=== PATIENT | female | born 1935 | race Caucasian/White ===

== ENCOUNTER 2017-09-06 11:49 | Inpatient (IN) | payer OTHER ==
[2017-09-06] MEDS ORDERED: SODIUM CHLORIDE 0.9% 1000 ML INFUS.BAG IV PRN (12:25)
[2017-09-06] MEDS ORDERED: LABETALOL HCL 5 MG/1 ML (100MG/20 ML VIAL) IVPUSH ONE ×3 (12:43→16:55)
--- NOTE | 2017-09-06 12:49 | PDOC ---
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 The patient states she woke up from sleep at 2AM feeling SOB, walked to the bathroom, but went back to sleep. As per the patients son, he returned from a workout this morning and found his mother to be lying on the couch with the phone knocked over like she was trying to make a call but couldn't and appeared to be having difficulty breathing. The son states she is disoriented today, and reports his mother was in good health yesterday seeing her patients in the office. The patient states her SOB and wheezing this morning prompted her prescribe herself and take Lasix, which her son reportedly picked up from the pharmacy for her on his way home from the gym. She states she feels like she could vomit, however, denies any emesis today. She reports a diffuse headache. She reports informing Dr. Quiñones of her symptoms this morning and was on the way to his office when she decided to come to the ED instead. She denies cough, chest pain, and dizziness. She denies fever, chills, nausea, vomit, diarrhea and constipation. She denies dysuria, frequency, urgency and hematuria. Allergies: NKDA Social history: distant history of tobacco use Cardiology: Dr. Quiñones <Cecilia Brush - Last Filed: 09/06/17 13:53> <Hank Blair - Last Filed: 09/06/17 14:52> - General Chief Complaint: Shortness of Breath Stated Complaint: ALTERED MENTAL STATUS (PCP SENT) Time Seen by Provider: 09/06/17 12:06 NIH Stroke Scale - Last Known Well Date/Time & Onset Date Last Known Well: 09/05/17 Time Last Known Well: 23:45 - Initial Evaluation Level of consciousness: Alert Ask patient the month and their age: Answers one correctly Ask patient to open & close eyes; make fist and let go: Obeys both correctly Best gaze (horizontal eye movement): Normal Visual field testing: No visual field loss Facial paresis (Show teeth/raise eyebrows/close eyes tight): Normal symmetrical movement Motor Function: Left Arm: Normal Motor Function: Right Arm: Normal (extends arm 90 (or 45) degrees for 10 seconds without drift Motor Function: Left Leg: Normal (extends leg 30 degrees for 5 seconds without drift) Motor Function: Right Leg: Normal (extends leg 30 degrees for 5 seconds without drift) Limb Ataxia: No ataxia Sensory(Use pinprick test arms,legs,trunk,face/side to side): Normal Best language (Describe picture, name items, read sentences): No Aphasia Dysarthria (read several words): Normal articulation Extinction and Inattention: No abnormality - Total Score NIH Stroke Scale Score: 1 <Hank Blair - Last Filed: 09/06/17 14:52> tPA Exclusion checklist 3-4.5h - Ineligibility reason(s) Reasons No tPA given: Outside of window - delayed arrival <Hank Blair - Last Filed: 09/06/17 14:52> Past History <Cecilia Brush - Last Filed: 09/06/17 13:53> - Past Medical History Anemia: Yes Asthma: No Cancer: No Cardiac Disorders: No CVA: No COPD: No CHF: No DVT: No Dementia: No Diabetes: No GI Disorders: Yes Disorders: Yes (KIDNEY STONES) HTN: Yes Hypercholesterolemia: Yes Liver Disease: No Seizures: No Thyroid Disease: No - Surgical History Abdominal Surgery: Yes Appendectomy: Yes Cardiac Surgery: No Cholecystectomy: No Lung Surgery: No Neurologic Surgery: No Orthopedic Surgery: No - Immunization History Immunization Up to Date: Yes - Suicide/Smoking/Psychosocial Hx Smoking History: Never smoked Have you smoked in the past 12 months: No If you are a former smoker, when did you quit?: 40yrs Information on smoking cessation initiated: No Hx Alcohol Use: No Drug/Substance Use Hx: No Substance Use Type: None <Hank Blair - Last Filed: 09/06/17 14:52> - Past Medical History Allergies/Adverse Reactions: Allergies Allergy/AdvReac Type Severity Reaction Status Date / Time No Known Allergies Allergy Verified 09/06/17 11:57 Home Medications: Ambulatory Orders Amlodipine Bes/Olmesartan Med [Moose 5-40 mg Tablet] 1 each PO DAILY 09/29/13 Furosemide 20 mg PO DAILY 09/06/17 Review of Systems - Review of Systems Constitutional: No: Chills, Fever HEENTM: No: Recent change in vision Respiratory: Yes: Shortness of Breath Cardiac (ROS): No: Chest Pain ABD/GI: Yes: Nausea. No: Vomiting : No: Dysuria, Frequency Neurological: Yes: Headache, Weakness All Other Systems: Reviewed and Negative <JohnnieHank - Last Filed: 09/06/17 14:52> *Physical Exam - Vital Signs Last Vital Signs Temp Pulse Resp BP Pulse Ox 97.9 F 84 15 190/83 93 L 09/06/17 11:57 09/06/17 11:57 09/06/17 11:57 09/06/17 11:57 09/06/17 11:57 - Physical Exam Comments: 09/06/17 13:03 GENERAL: The patient is awake, alert, and fully oriented, in no acute distress. HEAD: Normal with no signs of trauma. EYES: Pupils equal, round and reactive to light, extraocular movements intact, sclera anicteric, conjunctiva clear with no pallor. ENT: Ears normal, nares patent, oropharynx clear without exudates. Moist mucous membranes. NECK: Normal range of motion, supple without lymphadenopathy, JVD, or masses. LUNGS: (+)Decreased breath sounds and crackles to the mid lung wilhelm bilaterally. Breath sounds equal, HEART:(+) Regular rhythm with intermittent premature beats. Regular rate. normal S1 and S2 without murmur or rub. ABDOMEN: Soft/nontender/nondistended. BS wnl. No guarding or rebound. No palpable masses. No hepatosplenomegaly. EXTREMITIES: (+) Trace edema to the bilateral peritibial region. Normal range of motion No clubbing or cyanosis. No cords, erythema, or tenderness. NEUROLOGICAL: Cranial nerves II through XII grossly intact. Normal speech, normal gait. PSYCH: Normal mood, normal affect. SKIN: Warm, Dry, normal turgor, no rashes or lesions noted. <Cecilia Brush - Last Filed: 09/06/17 13:53> - Vital Signs Last Vital Signs Temp Pulse Resp BP Pulse Ox 97.9 F 84 15 190/83 93 L 09/06/17 11:57 09/06/17 11:57 09/06/17 11:57 09/06/17 11:57 09/06/17 11:57 <Hank Blair - Last Filed: 09/06/17 14:52> Heart Score/ECG Review #1 ECG reviewed & interpreted by me at: 12:31 General ECG Interpretation: Sinus Rhythm (PVCs noted), Normal Rate, Normal Intervals (qtc 457), No acute ischemic changes <Hank Blair - Last Filed: 09/06/17 14:52> ED Treatment Course - LABORATORY CBC & Chemistry Diagram: 09/06/17 12:29 09/06/17 12:29 <Cecilia Brush - Last Filed: 09/06/17 13:53> - LABORATORY CBC & Chemistry Diagram: 09/06/17 12:29 09/06/17 12:29 - RADIOLOGY Radiology Studies Ordered: Category Date Time Status HEAD CT (STROKE) [CT] Stat CT Scan 09/06/17 12:40 Ordered CHEST X-RAY PORTABLE* [RAD] Stat Radiology 09/06/17 12:25 Ordered <Hank Blair - Last Filed: 09/06/17 14:52> Medical Decision Making - Medical Decision Making 09/06/17 13:57 [facility] service was microblogged regarding this patient's admission and ICU spray technician, Dr. Washington, was paged requesting a call back for admission of this patient to ICU. <Cecilia Brush - Last Filed: 09/06/17 13:53> - Critical Care Time Total Critical Care Time (minutes): 120 Critical Care Statement: The care of this patient involved high complexity decision making to prevent further life threatening deterioration of the patient 's condition and/or to evaluate & treat vital organ system(s) failure or risk of failure. - Medical Decision Making 09/06/17 12:45 A portion of this note was documented by scribe services under my direction. I have reviewed the details of the note, within reason, and agree with the documentation with the following case summary and management plan written by me. 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 She requested to be brought to Dr. Quiñones's office but then diverted to the emergency department. Patient is now endorsing some headache, some back pain, continued shortness of breath, but no focal weakness. Denies any progressive shortness of breath over the last few days, denies any cough or fevers or chills or infectious complaints. Afebrile. Elevated blood pressure with systolic of 190 on arrival, 220 upon my examination Patient is lying in stretcher with eyes closed, alert to voice, following all commands, answering questions appropriately Pupils are equal and reactive Neck is supple Moving all extremities equally Regular rhythm with no ectopy, bilateral crackles and decreased lung sounds to the mid lung wilhelm Trace pretibial edema 82-year-old female with history of hypertension presents with acute shortness of breath and altered mental status, markedly elevated blood pressures. Most concerning for hypertensive emergency, rule out intracranial hemorrhage. Appears to be in pulmonary edema, rule out dissection given her back pain. No acute ischemic changes on her EKG. Question infectious process, seems more likely cardiovascular. Seen immediately upon arrival, placed on monitor and EKG performed Blood pressure control, CT head Sepsis and stroke protocol was initiated Close monitoring, currently protecting airway 09/06/17 13:39 no acute hemorrhage on CT but evidence of acute infarct in L frontoparietal region. + LLL infiltrate with calcified/uncoiled aorta but no widening of mediastinum. wbc 28, mental status steady, recognized Dr. Quiñones and maintaining airway. BP still elevated, will redose labetalol. Will need ICU admission for pna sepsis, hypertensive emergency with infarct (no clear motor deficit, unclear LKW, would not be tpa candidate 2/2 multiple contraindications of bp, unknown lkw, etc). Requests hospitalist admission, Dr. Quiñones at bedside. 09/06/17 14:35 Accepted for ICU by Dr. Washington. Accepted for admission by Dr. Bunch <Hank Blair - Last Filed: 09/06/17 14:52> *DC/Admit/Observation/Transfer - Attestations Scribe Attestion: 09/06/17 13:04 Documentation prepared by Cecilia Brush, acting as medical examiner for Hank Blair MD, <Cecilia Brush - Last Filed: 09/06/17 13:53> - Discharge Dispostion Admit: Yes <Hank Blair - Last Filed: 09/06/17 14:52> Diagnosis at time of Disposition: Hypertensive emergency Altered mental status Qualifiers: Altered mental status type: transient alteration of awareness Qualified Code(s) : R40.4 - Transient alteration of awareness CVA (cerebral vascular accident) Qualifiers: CVA mechanism: unspecified Qualified Code(s): I63.9 - Cerebral infarction, unspecified Pneumonia Qualifiers: Pneumonia type: due to unspecified organism Laterality: left Lung location: lower lobe of lung Qualified Code(s): J18.1 - Lobar pneumonia, unspecified organism - Discharge Dispostion Condition at time of disposition: Guarded
[2017-09-06 13:03] LABS: HEMATOCRIT 46.4 % (32.4-45.2); HEMOGLOBIN 15.1 GM/dL (10.7-15.3); MCH 29.4 pg (25.7-33.7); MCHC 32.5 g/dl (32.0-36.0); MEAN CELL VOLUME 90.6 fl (80-96); PLATELET COUNT 270 K/MM3 (134-434); RBC 5.12 M/mm3 (3.60-5.2); RDW 12.7 % (11.6-15.6)
[2017-09-06 13:12] LABS: VENOUS PC02 55.5 mmHg (38-52); VENOUS PH 7.35 (7.32-7.42); VENOUS PO2 17.8 mmHg (28-48)
[2017-09-06] MEDS: SODIUM CHLORIDE 1,000 ML IV SCH ×2 (13:14→23:05)
[2017-09-06] MEDS ORDERED: LABETALOL HCL 5 MG/1 ML (200MG/40ML VIAL) IVPB ONE (13:15)
[2017-09-06 13:18] LABS: INR 1.02 (0.82-1.09); PROTHROMBIN TIME (PATIENT) 11.5 SEC (9.98-11.88)
[2017-09-06 13:20] LABS: ACTIVATED PTT 31.6 SECONDS (26.9-34.4)
[2017-09-06] MEDS ORDERED: CEFTRIAXONE 1 GM in DEXTROSE 5%-WATER - 50 ML IVPB ONE (13:27)
[2017-09-06] MEDS ORDERED: VANCOMYCIN 1,000 MG in DEXTROSE 5%-WATER - 250 ML IVPB ONE (13:27)
[2017-09-06 13:32] LABS: ALBUMIN 3.3 g/dl (3.4-5.0); ANION GAP 6 (8-16); BLOOD UREA NITROGEN 17 mg/dL (7-18); CALCIUM 8.4 mg/dL (8.5-10.1); CHLORIDE 105 mmol/L (98-107); CO2 26 mmol/L (21-32); CREATININE 0.8 mg/dL (0.55-1.02); GLUCOSE,RANDOM 170 mg/dL (74-106); SGPT/ALT 30 U/L (12-78); SODIUM 137 mmol/L (136-145); TOT PROT 7.2 g/dl (6.4-8.2)
[2017-09-06 13:35] LABS: ALK PHOS 102 U/L (45-117)
[2017-09-06] MEDS ORDERED: ONDANSETRON 4 MG/2 ML VIAL IVPUSH ONE (13:35)
[2017-09-06] MEDS ORDERED: ACETAMINOPHEN 1000 MG/100 ML VIAL (NON FORMULARY) IVPB ONE (13:35)
[2017-09-06] MEDS ORDERED: VANCOMYCIN 1 GRAM (PRE-DOCKED) 1,000 MG/250 ML BAG IVPB ONE (13:38)
[2017-09-06] MEDS ORDERED: ONDANSETRON 4 MG/2 ML VIAL ONE (13:38)
[2017-09-06] MEDS ORDERED: CEFTRIAXONE 1 GM/50 ML BAG ONE (13:38)
[2017-09-06] MEDS ORDERED: ACETAMINOPHEN INJECTION 100 ML IVPB ONE (13:38)
[2017-09-06 13:45] LABS: PLATELET ESTIMATE ADEQUATE
[2017-09-06 13:47] LABS: POTASSIUM 5.9 mmol/L (3.5-5.1); SGOT/AST 56 U/L (15-37)
[2017-09-06] MEDS ORDERED: HEPARIN NA (PORCINE) 5,000 UNITS/ML 1ML VIAL SQ SCH (14:30)
--- NOTE | 2017-09-06 14:48 | PN ---
Teaching Attending Note ATTENDING PHYSICIAN STATEMENT I saw and evaluated the patient. I reviewed the resident's note and discussed the case with the resident. I agree with the resident's findings and plan as documented. SUBJECTIVE: Pt seen and examined. 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 Denies fevers or chills. No sick contacts or recent travel. Confused per her son at bedside. She does report a frontal headache but without nausea, vomiting. No vision changes. Found to have a LLL infiltrate on CXR and possible right frontal/parietal infarct on CT head. OBJECTIVE: Last Vital Signs Temp Pulse Resp BP Pulse Ox 98.6 F 81 16 162/76 95 09/06/17 13:48 09/06/17 14:30 09/06/17 14:30 09/06/17 14:30 09/06/17 14:30 Intake & Output 09/03/17 09/04/17 09/05/17 09/06/17 23:59 23:59 23:59 23:59 Weight 137 lb Gen: confused but able to orient HEENT: dry mucous membranes Heart: RRR Lung: decreased breath sounds at the bases Abd: soft, nontender Ext: no edema CBC, BMP 09/06/17 12:29 09/06/17 12:29 Troponin, BNP 09/06/17 12:29 Troponin I < 0.02 Active Medications Calcium Gluconate (Calcium Gluconate 10% -) 1,000 mg IVPB ONCE ONE Stop: 09/06/17 14:34 Chlorhexidine Gluconate (Hibiclens For Decolonization -) 1 applic TP HS SHAHRAM Heparin Sodium (Porcine) (Heparin -) 5,000 unit SQ Q8H-IV SHAHRAM Last Admin: 09/06/17 14:43 Dose: 5,000 unit Sodium Chloride (Normal Saline -) 1,000 mls @ 42 mls/hr IV ASDIR SHAHRAM Last Admin: 09/06/17 13:14 Dose: 42 mls/hr Azithromycin 500 mg/ Dextrose 250 mls @ 250 mls/hr IVPB DAILY ONE Stop: 09/06/17 15:32 Mupirocin (Bactroban Ointment (For Decolonization) -) 1 applic NS BID SHAHRAM Stop: 09/11/17 21:59 Sodium Chloride (Normal Saline -) 620 ml IV Q20M PRN PRN Reason: MAP<65mm Hg OR SBP <90 Sodium Polystyrene Sulfonate (Kayexalate -) 15 gm PO ONCE ONE Stop: 09/06/17 14:35 ASSESSMENT AND PLAN: Altered Mental Status Pneumonia Acute/Subacute CVA HTN Hyperlipidemia - antibiotics to cover community acquired pneumonia - f/u cultures - urine antigens - flu swab - IVF - monitor fever curve, WBC trend - would allow permissive HTN <220/120 - MRI when more clinically stable - PO as tolerated - DVT prophylaxis - can monitor in ICU Thank you for this consult Osvaldo Washington MD
[2017-09-06] MEDS ORDERED: AZITHROMYCIN IVPB 250 ML IVPB ONE (14:51)
[2017-09-06 15:13] LABS: URINE APPEARANCE CLEAR; URINE BILIRUBIN NEGATIVE (NEGATIVE); URINE BLOOD NEGATIVE (NEGATIVE); URINE COLOR LTYELLOW; URINE GLUCOSE (UA) NEGATIVE (NEGATIVE); URINE KETONE TRACE (NEGATIVE); URINE LEUK ESTERASE TRACE (NEGATIVE); URINE NITRITE POSITIVE (NEGATIVE); URINE UROBILINOGEN NEGATIVE mg/dL (0.2-1.0)
[2017-09-06 15:14] LABS: URINE PROTEIN 2+ (NEGATIVE)
[2017-09-06] MEDS ORDERED: CALCIUM GLUCONATE 10% - 1,000 MG/10 ML VIAL IVPB ONE (15:15)
[2017-09-06 15:17] LABS: URINE BACTERIA RARE /hpf (NONE SEEN); URINE MUCUS RARE
[2017-09-06] MEDS ORDERED: DEXTROSE 50%-WATER - 25 GM/50 ML VIAL IVPUSH ONE (15:25)
[2017-09-06] MEDS ORDERED: INSULIN REGULAR HUMAN 100 UNITS/ML *VIAL IVPUSH ONE (15:26)
[2017-09-06] MEDS ORDERED: SODIUM POLYSTYRENE SULFONATE 15 GM/60 ML BOTTLE PO ONE (15:30)
[2017-09-06] MEDS: AZITHROMYCIN IVPB 500 MG in DEXTROSE 5%-WATER - 250 ML IVPB SCH (16:08)
[2017-09-06] MEDS ORDERED: DEXTROSE 50%-WATER 25 GM/50 ML DISP.SYRIN ONE (16:16)
[2017-09-06] MEDS ORDERED: INSULIN REGULAR HUMAN 100 UNITS/ML *VIAL ONE (16:17)
--- NOTE | 2017-09-06 16:42 | HP ---
<Daniel Thapa - Last Filed: 09/06/17 17:29> CHIEF COMPLAINT: Shortness of breath HISTORY OF PRESENT ILLNESS: Patient is an 82 year old female with a past medical history of hypertension and hyperlipidemia presented to the ED today for a 1 day hx of shortness of breath and altered mental status. 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 She is accompanied by her son, who is visiting her from out of the area. Her son states that last night, the patient was feeling short of breath and not like herself at all. He states that she prescribed herself Lasix (unknown dose) and the son went to go pick it up for her. When he returned, he states that she was more short of breath and lethargic. The patient herself states that she felt better after taking the Lasix. Patient states that she called Dr. Cruz, who advised her to come to the emergency room. Currently patient states that she feels better and is not having any shortness of breath. She has never been intubated emergently before ( she has been intubated in the past for surgery). She denies chest pain, nausea, vomiting, diarrhea, fevers, chills, abdominal pain, headache, blurry vision, changes to her vision. ER course was notable for: (1) Hypertensive emergency (/) (2) Ischemic infarct on CT head no contrast (3) Leukocytosis at 28 (4) Hyperkalemia 5.9 Recent Travel: unknown PAST MEDICAL HISTORY: Hypertension, Hyperlipidemia, nephrolithiasis, septicemic shock, leiomyoma PAST SURGICAL HISTORY: hysterectomy for leiomyoma Social History: Smoking: former smoker, 4 packs a day, quit 48 years ago Alcohol: former drinker, unknown quantity (occasional social drinker now) Drugs: none Family History: unknown Allergies No Known Allergies Allergy (Verified 09/06/17 11:57) HOME MEDICATIONS: Home Medications Medication Instructions Recorded Amlodipine Bes/Olmesartan Med 1 each PO DAILY 09/29/13 [Moose 5-40 mg Tablet] Furosemide 20 mg PO DAILY 09/06/17 REVIEW OF SYSTEMS CONSTITUTIONAL: generalized weakness, malaise, Absent: fever, chills, diaphoresis, loss of appetite, weight change HEENT: Absent: rhinorrhea, nasal congestion, throat pain, throat swelling, difficulty swallowing, mouth swelling, ear pain, eye pain, visual changes CARDIOVASCULAR: lightheadedness Absent: chest pain, syncope, palpitations, irregular heart rate, peripheral edema RESPIRATORY: Absent: cough, shortness of breath, dyspnea with exertion, orthopnea, wheezing, stridor, hemoptysis GASTROINTESTINAL: Absent: abdominal pain, abdominal distension, nausea, vomiting, diarrhea, constipation, melena, hematochezia GENITOURINARY: Absent: dysuria, frequency, urgency, hesitancy, hematuria, flank pain, genital pain MUSCULOSKELETAL: Absent: myalgia, arthralgia, joint swelling, back pain, neck pain SKIN: Absent: rash, itching, pallor HEMATOLOGIC/IMMUNOLOGIC: Absent: easy bleeding, easy bruising, lymphadenopathy, frequent infections ENDOCRINE: Absent: unexplained weight gain, unexplained weight loss, heat intolerance, cold intolerance NEUROLOGIC: Absent: headache, focal weakness or paresthesias, dizziness, unsteady gait, seizure, mental status changes, bladder or bowel incontinence PSYCHIATRIC: Absent: anxiety, depression, suicidal or homicidal ideation, hallucinations. PHYSICAL EXAMINATION Vital Signs - 24 hr 09/06/17 09/06/17 09/06/17 11:57 13:13 13:48 Temperature 97.9 F 98.6 F Pulse Rate 84 Pulse Rate [ 84 84 Left Apical] Respiratory 15 16 16 Rate Blood Pressure 190/83 Blood Pressure 225/83 144/54 [Left Arm] O2 Sat by Pulse 93 L 100 94 L Oximetry (%) 09/06/17 09/06/17 14:30 16:09 Temperature 97.6 F Pulse Rate Pulse Rate [ 81 77 Left Apical] Respiratory 16 16 Rate Blood Pressure Blood Pressure 162/76 184/79 [Left Arm] O2 Sat by Pulse 95 99 Oximetry (%) GENERAL: Awake, alert, and oriented x3, in no acute distress. Patient is slighty altered but is A&O. HEAD: Normal with no signs of trauma. EYES: Pupils equal, round and reactive to light, extraocular movements intact, sclera anicteric, conjunctiva clear. No lid lag. EARS, NOSE, THROAT: Ears normal, nares patent, oropharynx clear without exudates. Moist mucous membranes. NECK: Normal range of motion, supple without lymphadenopathy, JVD, or masses. LUNGS: Breath sounds equal, Bilateral crackles heard on auscultation, patient is slightly tachypneic, No accessory muscle use. HEART: Regular rate and rhythm, normal S1 and S2 without murmur, rub or gallop. ABDOMEN: Soft, nontender, not distended, normoactive bowel sounds, no guarding, no rebound, no masses. No hepatomegaly or splenomegaly. MUSCULOSKELETAL: Normal range of motion at all joints. No bony deformities or tenderness. No CVA tenderness. UPPER EXTREMITIES: 2+ pulses, warm, well-perfused. No cyanosis. No clubbing. No peripheral edema. LOWER EXTREMITIES: 2+ pulses, warm, well-perfused. No calf tenderness. No peripheral edema. NEUROLOGICAL: Cranial nerves II-XII intact. Sensation decreased on dorsum of L arm and L hand. eyes are poorly tracking Laboratory Results - last 24 hr 09/06/17 09/06/17 09/06/17 12:29 12:29 12:29 WBC 28.0 H D RBC 5.12 Hgb 15.1 Hct 46.4 H MCV 90.6 MCH 29.4 MCHC 32.5 RDW 12.7 Plt Count 270 MPV 8.0 Total Counted 100 Neutrophils % No Result Required. Neutrophils % (Manual) 85.0 H Lymphocytes % No Result Required. Lymphocytes % (Manual) 4.0 L Monocytes % (Manual) 11 H Platelet Estimate Adequate PT with INR 11.50 INR 1.02 PTT (Actin FS) 31.6 VBG pH 7.35 POC VBG pCO2 55.5 H POC VBG pO2 17.8 L* Mixed VBG HCO3 29.6 H Sodium Potassium Chloride Carbon Dioxide Anion Gap BUN Creatinine Creat Clearance w eGFR Random Glucose Lactic Acid Calcium Total Bilirubin AST ALT Alkaline Phosphatase Creatine Kinase Troponin I Total Protein Albumin Urine Color Urine Appearance Urine pH Ur Specific [place] Urine Protein Urine Glucose (UA) Urine Ketones Urine Blood Urine Nitrite Urine Bilirubin Urine Urobilinogen Urine WBC (Auto) Urine RBC (Auto) Urine Bacteria Urine Mucus Blood Type Antibody Screen 09/06/17 09/06/17 09/06/17 12:29 12:29 13:00 WBC RBC Hgb Hct MCV MCH MCHC RDW Plt Count MPV Total Counted Neutrophils % Neutrophils % (Manual) Lymphocytes % Lymphocytes % (Manual) Monocytes % (Manual) Platelet Estimate PT with INR INR PTT (Actin FS) VBG pH POC VBG pCO2 POC VBG pO2 Mixed VBG HCO3 Sodium 137 Potassium 5.9 H D Chloride 105 Carbon Dioxide 26 Anion Gap 6 L BUN 17 Creatinine 0.8 Creat Clearance w eGFR > 60 Random Glucose 170 H D Lactic Acid 1.9 Calcium 8.4 L Total Bilirubin 1.0 D AST 56 H D ALT 30 D Alkaline Phosphatase 102 Creatine Kinase 114 Troponin I < 0.02 Total Protein 7.2 Albumin 3.3 L Urine Color Urine Appearance Urine pH Ur Specific [place] Urine Protein Urine Glucose (UA) Urine Ketones Urine Blood Urine Nitrite Urine Bilirubin Urine Urobilinogen Urine WBC (Auto) Urine RBC (Auto) Urine Bacteria Urine Mucus Blood Type O POSITIVE Antibody Screen Negative 09/06/17 15:00 WBC RBC Hgb Hct MCV MCH MCHC RDW Plt Count MPV Total Counted Neutrophils % Neutrophils % (Manual) Lymphocytes % Lymphocytes % (Manual) Monocytes % (Manual) Platelet Estimate PT with INR INR PTT (Actin FS) VBG pH POC VBG pCO2 POC VBG pO2 Mixed VBG HCO3 Sodium Potassium Chloride Carbon Dioxide Anion Gap BUN Creatinine Creat Clearance w eGFR Random Glucose Lactic Acid Calcium Total Bilirubin AST ALT Alkaline Phosphatase Creatine Kinase Troponin I Total Protein Albumin Urine Color Ltyellow Urine Appearance Clear Urine pH 6.0 Ur Specific [place] 1.012 Urine Protein 2+ H Urine Glucose (UA) Negative Urine Ketones Trace H Urine Blood Negative Urine Nitrite Positive Urine Bilirubin Negative Urine Urobilinogen Negative Urine WBC (Auto) 4 Urine RBC (Auto) <1 Urine Bacteria Rare Urine Mucus Rare Blood Type Antibody Screen ASSESSMENT/PLAN: 82 year old female with a past medical history of hypertension and hyperlipidemia admitted to the ICU for sepsis 2/2 pneumonia, hypertensive emergency, and ischemic stroke. #Sepsis likely 2/2 Pneumonia: -repeat ABG -vanco given in ED -ceftriaxone/azithromycin coverage QD -Fluid resuscitation -lasix 40mg IV QD #Ischemic Stroke: -appreciate neuro recommendations Dr. Sotelo -f/u MRI brain -f/u carotid doppler -Aspirin 325 loading dose and 81mg QD starting tomorrow -atorvastatin 40mg -Speech/swallow consult, NPO till after #Hypertensive Emergency: BP was 225/83 -Patient was given labetalol in ED and pressure decreased to 144/54 -continue labetalol 10mg Q3 PRN if BP > 200/120 -f/u echocardiogram #Hyperkalemia: potassium was 5.9 on admission -EKG did not show any concerning abnormalities -calcium gluconate -kayexalate -insulin -repeat BMP 9pm #FEN: -no standing fluids -hyperkalemic, repeat BMP 9pm -NPO until after speech/swallow #Prophylaxis -Heparin 5000 Subq TID #Disposition -Admit to ICU for monitoring, full code until status is reassessed Visit type - Emergency Visit Emergency Visit: Yes ED Registration Date: 09/06/17 Care time: The patient presented to the Emergency Department on the above date and was hospitalized for further evaluation of their emergent condition. - New Patient This patient is new to me today: Yes Date on this admission: 09/06/17 - Critical Care Critical Care patient: Yes Total Critical Care Time (in minutes): 30 Critical Care Statement: The care of this patient involved high complexity decision making to prevent further life threatening deterioration of the patient 's condition and/or to evaluate & treat vital organ system(s) failure or risk of failure. <Asa Bunch - Last Filed: 09/06/17 18:37> CHIEF COMPLAINT: PCP: HISTORY OF PRESENT ILLNESS: ER course was notable for: (1) (2) (3) Recent Travel: PAST MEDICAL HISTORY: PAST SURGICAL HISTORY: Social History: Smoking: Alcohol: Drugs: Family History: Allergies No Known Allergies Allergy (Verified 09/06/17 11:57) HOME MEDICATIONS: Home Medications Medication Instructions Recorded Amlodipine Bes/Olmesartan Med 1 each PO DAILY 09/29/13 [Moose 5-40 mg Tablet] Furosemide 20 mg PO DAILY 09/06/17 REVIEW OF SYSTEMS CONSTITUTIONAL: Absent: fever, chills, diaphoresis, generalized weakness, malaise, loss of appetite, weight change HEENT: Absent: rhinorrhea, nasal congestion, throat pain, throat swelling, difficulty swallowing, mouth swelling, ear pain, eye pain, visual changes CARDIOVASCULAR: Absent: chest pain, syncope, palpitations, irregular heart rate, lightheadedness , peripheral edema RESPIRATORY: Absent: cough, shortness of breath, dyspnea with exertion, orthopnea, wheezing, stridor, hemoptysis GASTROINTESTINAL: Absent: abdominal pain, abdominal distension, nausea, vomiting, diarrhea, constipation, melena, hematochezia GENITOURINARY: Absent: dysuria, frequency, urgency, hesitancy, hematuria, flank pain, genital pain MUSCULOSKELETAL: Absent: myalgia, arthralgia, joint swelling, back pain, neck pain SKIN: Absent: rash, itching, pallor HEMATOLOGIC/IMMUNOLOGIC: Absent: easy bleeding, easy bruising, lymphadenopathy, frequent infections ENDOCRINE: Absent: unexplained weight gain, unexplained weight loss, heat intolerance, cold intolerance NEUROLOGIC: Absent: headache, focal weakness or paresthesias, dizziness, unsteady gait, seizure, mental status changes, bladder or bowel incontinence PSYCHIATRIC: Absent: anxiety, depression, suicidal or homicidal ideation, hallucinations. PHYSICAL EXAMINATION Vital Signs - 24 hr 09/06/17 09/06/17 09/06/17 11:57 13:13 13:48 Temperature 97.9 F 98.6 F Pulse Rate 84 Pulse Rate [ 84 84 Left Apical] Respiratory 15 16 16 Rate Blood Pressure 190/83 Blood Pressure 225/83 144/54 [Left Arm] O2 Sat by Pulse 93 L 100 94 L Oximetry (%) 09/06/17 09/06/17 09/06/17 14:30 16:09 17:15 Temperature 97.6 F 97.8 F Pulse Rate Pulse Rate [ 81 77 72 Left Apical] Respiratory 16 16 16 Rate Blood Pressure Blood Pressure 162/76 184/79 167/78 [Left Arm] O2 Sat by Pulse 95 99 96 Oximetry (%) 09/06/17 18:22 Temperature 98.0 F Pulse Rate Pulse Rate [ 75 Left Apical] Respiratory 16 Rate Blood Pressure Blood Pressure 130/61 [Left Arm] O2 Sat by Pulse 98 Oximetry (%) GENERAL: Awake, alert, and fully oriented, in no acute distress. HEAD: Normal with no signs of trauma. EYES: Pupils equal, round and reactive to light, extraocular movements intact, sclera anicteric, conjunctiva clear. No lid lag. EARS, NOSE, THROAT: Ears normal, nares patent, oropharynx clear without exudates. Moist mucous membranes. NECK: Normal range of motion, supple without lymphadenopathy, JVD, or masses. LUNGS: Breath sounds equal, clear to auscultation bilaterally. No wheezes, and no crackles. No accessory muscle use. HEART: Regular rate and rhythm, normal S1 and S2 without murmur, rub or gallop. ABDOMEN: Soft, nontender, not distended, normoactive bowel sounds, no guarding, no rebound, no masses. No hepatomegaly or splenomegaly. MUSCULOSKELETAL: Normal range of motion at all joints. No bony deformities or tenderness. No CVA tenderness. UPPER EXTREMITIES: 2+ pulses, warm, well-perfused. No cyanosis. No clubbing. No peripheral edema. LOWER EXTREMITIES: 2+ pulses, warm, well-perfused. No calf tenderness. No peripheral edema. NEUROLOGICAL: Cranial nerves II-XII intact. Normal speech. Normal gait. PSYCHIATRIC: Cooperative. Good eye contact. Appropriate mood and affect. SKIN: Warm, dry, normal turgor, no rashes or lesions noted, normal capillary refill. Laboratory Results - last 24 hr 09/06/17 09/06/17 09/06/17 12:29 12:29 12:29 WBC 28.0 H D RBC 5.12 Hgb 15.1 Hct 46.4 H MCV 90.6 MCH 29.4 MCHC 32.5 RDW 12.7 Plt Count 270 MPV 8.0 Total Counted 100 Neutrophils % No Result Required. Neutrophils % (Manual) 85.0 H Lymphocytes % No Result Required. Lymphocytes % (Manual) 4.0 L Monocytes % (Manual) 11 H Platelet Estimate Adequate PT with INR 11.50 INR 1.02 PTT (Actin FS) 31.6 VBG pH 7.35 POC VBG pCO2 55.5 H POC VBG pO2 17.8 L* Mixed VBG HCO3 29.6 H Sodium Potassium Chloride Carbon Dioxide Anion Gap BUN Creatinine Creat Clearance w eGFR Random Glucose Lactic Acid Calcium Magnesium Total Bilirubin AST ALT Alkaline Phosphatase Creatine Kinase Troponin I B-Natriuretic Peptide Total Protein Albumin TSH Urine Color Urine Appearance Urine pH Ur Specific [place] Urine Protein Urine Glucose (UA) Urine Ketones Urine Blood Urine Nitrite Urine Bilirubin Urine Urobilinogen Urine WBC (Auto) Urine RBC (Auto) Urine Bacteria Urine Mucus Blood Type Antibody Screen Spec Expiration Date 09/06/17 09/06/17 09/06/17 12:29 12:29 13:00 WBC RBC Hgb Hct MCV MCH MCHC RDW Plt Count MPV Total Counted Neutrophils % Neutrophils % (Manual) Lymphocytes % Lymphocytes % (Manual) Monocytes % (Manual) Platelet Estimate PT with INR INR PTT (Actin FS) VBG pH POC VBG pCO2 POC VBG pO2 Mixed VBG HCO3 Sodium 137 Potassium 5.9 H D Chloride 105 Carbon Dioxide 26 Anion Gap 6 L BUN 17 Creatinine 0.8 Creat Clearance w eGFR > 60 Random Glucose 170 H D Lactic Acid 1.9 Calcium 8.4 L Magnesium Total Bilirubin 1.0 D AST 56 H D ALT 30 D Alkaline Phosphatase 102 Creatine Kinase 114 Troponin I < 0.02 B-Natriuretic Peptide Total Protein 7.2 Albumin 3.3 L TSH Urine Color Urine Appearance Urine pH Ur Specific [place] Urine Protein Urine Glucose (UA) Urine Ketones Urine Blood Urine Nitrite Urine Bilirubin Urine Urobilinogen Urine WBC (Auto) Urine RBC (Auto) Urine Bacteria Urine Mucus Blood Type O POSITIVE Antibody Screen Negative Spec Expiration Date 09/06/17 09/06/17 09/06/17 15:00 16:30 16:40 WBC RBC Hgb Hct MCV MCH MCHC RDW Plt Count MPV Total Counted Neutrophils % Neutrophils % (Manual) Lymphocytes % Lymphocytes % (Manual) Monocytes % (Manual) Platelet Estimate PT with INR INR PTT (Actin FS) VBG pH POC VBG pCO2 POC VBG pO2 Mixed VBG HCO3 Sodium Potassium Chloride Carbon Dioxide Anion Gap BUN Creatinine Creat Clearance w eGFR Random Glucose Lactic Acid Calcium Magnesium 2.0 Total Bilirubin AST ALT Alkaline Phosphatase Creatine Kinase Troponin I B-Natriuretic Peptide Total Protein Albumin TSH 1.01 Urine Color Ltyellow Urine Appearance Clear Urine pH 6.0 Ur Specific [place] 1.012 Urine Protein 2+ H Urine Glucose (UA) Negative Urine Ketones Trace H Urine Blood Negative Urine Nitrite Positive Urine Bilirubin Negative Urine Urobilinogen Negative Urine WBC (Auto) 4 Urine RBC (Auto) <1 Urine Bacteria Rare Urine Mucus Rare Blood Type O POSITIVE Antibody Screen Cancelled Spec Expiration Date Cancelled 09/06/17 16:52 WBC RBC Hgb Hct MCV MCH MCHC RDW Plt Count MPV Total Counted Neutrophils % Neutrophils % (Manual) Lymphocytes % Lymphocytes % (Manual) Monocytes % (Manual) Platelet Estimate PT with INR INR PTT (Actin FS) VBG pH POC VBG pCO2 POC VBG pO2 Mixed VBG HCO3 Sodium Potassium Chloride Carbon Dioxide Anion Gap BUN Creatinine Creat Clearance w eGFR Random Glucose Lactic Acid Calcium Magnesium Total Bilirubin AST ALT Alkaline Phosphatase Creatine Kinase Troponin I B-Natriuretic Peptide 3034.93 H Total Protein Albumin TSH Urine Color Urine Appearance Urine pH Ur Specific [place] Urine Protein Urine Glucose (UA) Urine Ketones Urine Blood Urine Nitrite Urine Bilirubin Urine Urobilinogen Urine WBC (Auto) Urine RBC (Auto) Urine Bacteria Urine Mucus Blood Type Antibody Screen Spec Expiration Date ASSESSMENT/PLAN:
--- NOTE | 2017-09-06 16:51 | CON.NEURO ---
Consult - History of Present Illness History of Present Illness: 2 Year old female history of Hypertension and 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 She has not been feeling well and had shortness of breadth . Patient blood pressure was very high and she was found to ahve ischemic lesion on right side . She has no headhace, no dsphagia , no dysarthria or diplopia or weakness. Patient is very tired . She has been having difficulty breathing. h - Alcohol/Substance Use Hx Alcohol Use: No - Smoking History Smoking history: Never smoked Have you smoked in the past 12 months: No If you are a former smoker, when did you quit?: 40yrs Home Medications - Allergies Allergies/Adverse Reactions: Allergies Allergy/AdvReac Type Severity Reaction Status Date / Time No Known Allergies Allergy Verified 09/06/17 11:57 - Home Medications Home Medications: Ambulatory Orders Amlodipine Bes/Olmesartan Med [Moose 5-40 mg Tablet] 1 each PO DAILY 09/29/13 Furosemide 20 mg PO DAILY 09/06/17 Physical Exam-Neuro Vital Signs: Vital Signs Temperature 97.6 F 09/06/17 16:09 Pulse Rate 77 09/06/17 16:09 Respiratory Rate 16 09/06/17 16:09 Blood Pressure 184/79 09/06/17 16:09 O2 Sat by Pulse Oximetry (%) 99 09/06/17 16:09 Labs: CBC, BMP 09/06/17 12:29 09/06/17 12:29 INR, PTT INR 1.02 (0.82-1.09) 09/06/17 12:29 Imaging - Results Cat Scan: Image Reviewed Assessment/Plan cc found to have right fronto parietal lobe infarct on ct head and high blood pressure HPI 82 Year old female history of Hypertension and 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 She has not been feeling well and had shortness of breadth . Patient blood pressure was very high and she was found to ahve ischemic lesion on right side . She has no headhace, no dsphagia , no dysarthria or diplopia or weakness. Patient is very tired . She has been having difficulty breathing. h Allergies: NKDA Social history: distant history of tobacco use MH,SH,ROS, Reviewe d in chart Neurological Examination Alert follow command, she is very tired and keep closing her eyes. and not very cooperative BP is 225/83, no neck stiffness no facial asymmetry, eomi and pupils is reactive moving all extremity not able to visual field by confrontation as she was uncooperative and exam is inconsistent she told resident that left hand she had numbness but on my exam there was normal sensation CT head showed right sided ischemic lesion at [place] frontal function Assessment- asymptomatic ischemic lesion , as she came with chf and very high blood pressure. Clinically her nih score is 1 or 0 Plan suggest to do mri of brain and carotid ultrasound for stroke work up - first 24 hour , bp should not be treated if above 220/120 or there is end organ failure - due to chf her bp need to lower, consider lowering by 15-20% of MAP - Antiplatelet and Statin Neuro check would continue to follow , please call us if any concern Thanks for consult Jonathon Sotelo MD
[2017-09-06] MEDS ORDERED: FUROSEMIDE 40 MG/4 ML INJECTABLE VIAL IVPUSH SCH ×2 (16:57→21:41)
[2017-09-06] MEDS ORDERED: LABETALOL HCL 5 MG/1 ML (100MG/20 ML VIAL) IVPUSH PRN ×2 (17:01→21:41)
--- NOTE | 2017-09-06 17:06 | PN ---
Teaching Attending Note Name of Resident: Daniel Thapa ATTENDING PHYSICIAN STATEMENT I saw and evaluated the patient. I reviewed the resident's note and discussed the case with the resident. I agree with the resident's findings and plan as documented. 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 Self prescribed lasix and took a dose with improvement in her symptoms. 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 Quiñones who advised her to come to the ED. Patient currently reports shortness of breath and feeling tired but denies any chest pain, palpitations, dizziness, new cough, fevers, chills, recent antibiotics or travel, orthopnea, PND, leg swelling, weight gain, recent URI like illness. 12 point ROS done, reports chronic back pain "straight down from below the skull to the bottom". with no recent change. Also c/o frontal headache, which is improved currently. OBJECTIVE: Vital Signs Period Temp Pulse Resp BP Sys/Espinoza Pulse Ox Last 24 Hr 97.6 F-98.6 F 77-84 15-16 144-225/54-83 93-100 Intake & Output 09/03/17 09/04/17 09/05/17 09/06/17 23:59 23:59 23:59 23:59 Weight 137 lb GENERAL: Awake, alert, mild tachypneia, with some use of acessory muscles for breathing HEAD: Normal with no signs of trauma. EYES: Pupils equal, round and reactive to light, extraocular movements intact, sclera anicteric, conjunctiva clear. No lid lag. EARS, NOSE, THROAT: Ears normal, nares patent, oropharynx clear without exudates. Moist mucous membranes. NECK: Normal range of motion, supple without lymphadenopathy, jugular venous distension noted LUNGS: decreased effort, scattered basilar rales, decreased breath sounds left base. HEART: Regular rate and rhythm, normal S1 and S2 ABDOMEN: Soft, nontender, not distended, normoactive bowel sounds, no guarding, no rebound, no masses. No hepatomegaly or splenomegaly. MUSCULOSKELETAL: No spinal tenderness. No CVA tenderness. UPPER EXTREMITIES: 2+ pulses, warm, well-perfused. No cyanosis. No clubbing. No peripheral edema. LOWER EXTREMITIES: 2+ pulses, warm, well-perfused. No calf tenderness. No peripheral edema. NEUROLOGICAL: AAOX3, tired looking,keeps closing her eyes, not very co- operative, PERRLA, EOMI, facial symmetry, no pronator drift, moves all extremities, not co-operative with visual field exam, senstion intact face/ Upper and lower extremities (reported decreased LUE sensation to prior MD) PSYCHIATRIC: tired looking, less co-operative. SKIN: Warm, dry, normal turgor, no rashes or lesions noted, normal capillary refill. Home Medication List Medication Instructions Recorded Confirmed Type Amlodipine Bes/Olmesartan Med 1 each PO DAILY 09/29/13 09/06/17 History [Moose 5-40 mg Tablet] Furosemide 20 mg PO DAILY 09/06/17 09/06/17 History Active Medications Generic Name Dose Route Start Last Admin Trade Name Freq PRN Reason Stop Dose Admin Albuterol Sulfate 1 amp 09/06/17 18:00 Ventolin 0.083% Nebulizer Soln - NEB QIDR SHAHRAM Aspirin 325 mg 09/06/17 17:10 Asa - PO 09/06/17 17:11 ONCE ONE Aspirin 81 mg 09/07/17 10:00 Asa - PO DAILY SHAHRAM Atorvastatin Calcium 40 mg 09/06/17 22:00 Lipitor - PO HS SHAHRAM Chlorhexidine Gluconate 1 applic 09/06/17 22:00 Hibiclens For Decolonization - TP HS SHAHRAM Furosemide 40 mg 09/06/17 16:57 Lasix Injection - IVPUSH DAILY [facility] Heparin Sodium (Porcine) 5,000 unit 09/06/17 15:08 Heparin - SQ TID SHAHRAM Sodium Chloride 1,000 mls @ 42 mls/hr 09/06/17 12:45 09/06/17 13:14 Normal Saline - IV 42 mls/hr ASDIR SHAHRAM Administration Azithromycin 500 mg/ Dextrose 250 mls @ 250 mls/hr 09/06/17 14:33 09/06/17 16 :08 IVPB 250 mls/hr DAILY SHAHRAM Administration Labetalol HCl 10 mg 09/06/17 17:01 Normodyne Injection - IVPUSH Q3H PRN HEADACHE Mupirocin 1 applic 09/06/17 22:00 Bactroban Ointment (For Decolonization) - NS 09/11/17 21:59 BID SHAHRAM Sodium Chloride 620 ml 09/06/17 12:25 Normal Saline - IV Q20M PRN MAP<65mm Hg OR SBP <90 Laboratory Tests 09/06/17 09/06/17 09/06/17 12:29 12:29 12:29 WBC 28.0 H D RBC 5.12 Hgb 15.1 Hct 46.4 H MCV 90.6 MCH 29.4 MCHC 32.5 RDW 12.7 Plt Count 270 MPV 8.0 Total Counted 100 Neutrophils % No Result Required. Neutrophils % (Manual) 85.0 H Lymphocytes % No Result Required. Lymphocytes % (Manual) 4.0 L Monocytes % (Manual) 11 H Platelet Estimate Adequate PT with INR 11.50 INR 1.02 PTT (Actin FS) 31.6 VBG pH 7.35 POC VBG pCO2 55.5 H POC VBG pO2 17.8 L* Mixed VBG HCO3 29.6 H Sodium Potassium Chloride Carbon Dioxide Anion Gap BUN Creatinine Creat Clearance w eGFR Random Glucose Lactic Acid Calcium Total Bilirubin AST ALT Alkaline Phosphatase Creatine Kinase Troponin I Total Protein Albumin Urine Color Urine Appearance Urine pH Ur Specific [place] Urine Protein Urine Glucose (UA) Urine Ketones Urine Blood Urine Nitrite Urine Bilirubin Urine Urobilinogen Urine WBC (Auto) Urine RBC (Auto) Urine Bacteria Urine Mucus Blood Type Antibody Screen 09/06/17 09/06/17 09/06/17 12:29 12:29 13:00 WBC RBC Hgb Hct MCV MCH MCHC RDW Plt Count MPV Total Counted Neutrophils % Neutrophils % (Manual) Lymphocytes % Lymphocytes % (Manual) Monocytes % (Manual) Platelet Estimate PT with INR INR PTT (Actin FS) VBG pH POC VBG pCO2 POC VBG pO2 Mixed VBG HCO3 Sodium 137 Potassium 5.9 H D Chloride 105 Carbon Dioxide 26 Anion Gap 6 L BUN 17 Creatinine 0.8 Creat Clearance w eGFR > 60 Random Glucose 170 H D Lactic Acid 1.9 Calcium 8.4 L Total Bilirubin 1.0 D AST 56 H D ALT 30 D Alkaline Phosphatase 102 Creatine Kinase 114 Troponin I < 0.02 Total Protein 7.2 Albumin 3.3 L Urine Color Urine Appearance Urine pH Ur Specific [place] Urine Protein Urine Glucose (UA) Urine Ketones Urine Blood Urine Nitrite Urine Bilirubin Urine Urobilinogen Urine WBC (Auto) Urine RBC (Auto) Urine Bacteria Urine Mucus Blood Type O POSITIVE Antibody Screen Negative 09/06/17 15:00 WBC RBC Hgb Hct MCV MCH MCHC RDW Plt Count MPV Total Counted Neutrophils % Neutrophils % (Manual) Lymphocytes % Lymphocytes % (Manual) Monocytes % (Manual) Platelet Estimate PT with INR INR PTT (Actin FS) VBG pH POC VBG pCO2 POC VBG pO2 Mixed VBG HCO3 Sodium Potassium Chloride Carbon Dioxide Anion Gap BUN Creatinine Creat Clearance w eGFR Random Glucose Lactic Acid Calcium Total Bilirubin AST ALT Alkaline Phosphatase Creatine Kinase Troponin I Total Protein Albumin Urine Color Ltyellow Urine Appearance Clear Urine pH 6.0 Ur Specific [place] 1.012 Urine Protein 2+ H Urine Glucose (UA) Negative Urine Ketones Trace H Urine Blood Negative Urine Nitrite Positive Urine Bilirubin Negative Urine Urobilinogen Negative Urine WBC (Auto) 4 Urine RBC (Auto) <1 Urine Bacteria Rare Urine Mucus Rare Blood Type Antibody Screen CXR - Pulmonary venous congestion, LLL infiltrate with small left pleural effusion CT brain - microvascular changes, right fronto-parietal junction acute/subacute infarct EKG - NSR, poor baseline, frequent PVCs ASSESSMENT AND PLAN: 82 yof with PMHx of HTN, HLD, admitted with shortness of breath, likely LLL CAP with sepsis, with component of acute diastolic heart failure, hypertensive urgency and Possible right acute/subacute frontoparietal CVA. -LLL CAP with sepsis -Acute diastolic heart failure, suspect from uncontolled BP which would again from acute CVA -Acute vs subacute right frontoparietal CVA -Hyperkalemia, ?etiology, ARB related -Hypertensive urgency -Hyperlipidemia -Prior heavy smoker Plan: -Ceftriaxone/azithromycin, s/p vanco in ED, Blood cultures, sputum cultures, influenza swab, nebs prn Heavy smoking history, will consider steroids if persistent tachypneic and/or wheezing noted. Repeat ABG. Based on exam and CXR, looks with component of CHF. Check BNP, lasix 40 mg IV daily, monitor output and renal function on diuresis. Strict I/Os. 2D echo noted. Aggressive hyperkalemia treatment Ca gluconate, D50 with insulin, kayexalate and nebs. Repeat chem-7 in 4 hours. Permissive HTN upto 220/120 for CVA Will aim for 15-20% drop given concerns for diastolic CHF as discussed with neurology. labetalol prn as indicated. Neuro checks. MRI brain when more stable and carotid dopplers. Bedside speech/swallow eval and PO accordingly. DVTPPx patient being transferred to ICU given respiratory distress, hypertensive urgency, concern for acute CVA and need for close neurological and respiratory status monitoring. Total critical care time spent 65 min.
[2017-09-06] MEDS ORDERED: ASPIRIN 325 MG TABLET PO ONE (17:10)
--- NOTE | 2017-09-06 17:35 | PN ---
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 (short form) - Note 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: ID Consult dictated Bibasilar infiltrates Sepsis secondary to lung source S/P altered mental status Marked leukocytosis Hypertensive crisis/ acute v. subacute CVA Await cultures Empiric ceftriaxone/ zithromax
[2017-09-06] MEDS ORDERED: diazePAM 2 MG TABLET PO ONE (17:42)
[2017-09-06] MEDS ORDERED: diazePAM 2 MG TABLET ONE (17:43)
[2017-09-06] MEDS: ALBUTEROL SO4 0.083% IH SOL 2.5 MG/3 ML VIAL.NEB. NEB SCH ×2 (18:02→23:55)
[2017-09-06] MEDS ORDERED: ALBUTEROL SO4 0.083% IH SOL 2.5 MG/3 ML VIAL.NEB. NEB ONE (18:04)
[2017-09-06] MEDS ORDERED: ASPIRIN 325 MG TABLET ONE (18:05)
[2017-09-06] MEDS ORDERED: FUROSEMIDE 40 MG/4 ML INJECTABLE VIAL IVPUSH ONE (18:27)
--- NOTE | 2017-09-06 20:56 | CONS ---
DATE OF CONSULTATION: REQUESTING PHYSICIAN: Hank Blair LOCATION: Emergency room. CHIEF COMPLAINT: 1. Shortness of breath. 2. History of mental confusion. 3. Generalized weakness. 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 According to the ER note, she also had wheezing, headaches, and generalized weakness. The patient was found to be lethargic, though arousable, extremely nauseous and restless. The patient earlier had called my office and stated that she wanted to come to see me, and I had advised her that she should not drive and have someone bring her over. Her son found her confused and dyspneic and decided to bring her to the emergency room. She denies having chills, fever, night sweats. There is no history of cough or expectoration. Denies having chest pain or discomfort either at rest or with exertion. She has a longstanding history of hypertension and hypercholesterolemia. She denies having a sore throat or a recent upper respiratory tract infection. In the emergency room, she was found to have accelerated hypertension with a blood pressure of 190/93 mmHg. PAST HISTORY: As mentioned in the history of present illness. SURGICAL HISTORY: Not available. 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 Unable to get a history of smoking or ethanol use. FAMILY HISTORY: Not available. CURRENT MEDICATIONS: 1. Azithromycin 250 mg IV daily. 2. Ceftriaxone 1 g IV daily. 3. Mupirocin 1 application b.i.d. 4. Heparin 5000 units subcutaneous t.i.d. 5. Albuterol via nebulizer. 6. Labetalol 10 mg IV push q.3 hours p.r.n. 7. Normal saline. 8. Atorvastatin 40 mg p.o. daily. 9. Furosemide 40 mg IV push. 10. Aspirin 81 mg p.o. daily. Earlier the patient had received Zofran and acetaminophen. Prior to admission, the patient had been on: 1. Moose 5/40 mg p.o. daily. 2. Furosemide 20 mg p.o. daily. REVIEW OF SYSTEMS: Constitutional: No history of chills, fever, or night sweats were reported. No history of unintentional weight loss is available. HEENT: History of headaches. No history of diplopia, blurred vision. No history of epistaxis, hoarseness, tinnitus, or deafness is reported. Cardiovascular: See history of present illness. Respiratory: See history of present illness. As mentioned in the ER physician's note, history of wheezing. No history of cough, expectoration, or hemoptysis. Gastrointestinal: History of severe nausea. No history of vomiting, melena, or hemoptysis. No history of abdominal pain or discomfort. No change of bowel habits. Central Nervous System: History of confusion. weakness. No history of seizures or syncope. No history of focal weakness. Genitourinary: No history of dysuria, frequency, or hematuria. Endocrine: No history of polyuria or polydipsia. No history of intolerance to cold or warm weather. Hematological/Lymphatics: No history of anemia, ecchymosis, or bleeding. No history of lymphadenopathy. PHYSICAL EXAMINATION: General: An 82-year-old ill-looking female who is restless when aroused but seems to be lethargic. There is no pallor, cyanosis, clubbing, or jaundice. Vital Signs: On admission, blood pressure 190/83 mmHg, a blood pressure of 200 mmHg was reported by the ER physician. Heart rate 84 beats per minute and is regular. Respirations are 15 per minute. Weight is 137 pounds. Temperature is 97.9 degrees Fahrenheit. Neck: Supple. No jugular venous distention. Slightly positive hepatojugular reflux. Carotids are 2+. Upstrokes are normal. No bruits are appreciated. Heart: PMI is in the 5th intercostal space. No heaves or thrills. S1 and S2 are normal. No murmur or gallop is heard. Lungs: Fine crepitations at the left breast. Scattered expiratory wheezing at the left base. No rub is heard. Chest: There is a large, soft, fatty structure seen over the left scapula. Abdomen: Soft and nontender. No hepatosplenomegaly or palpable masses are felt. Bowel sounds are decreased. Extremities: No calf tenderness or dependent edema. Femoral pulses are palpable. Dorsalis pedis pulses and posterior tibial pulses are weak. LABORATORY DATA: CBC: WBC count on admission was 28,000, hemoglobin 15.1 g/dL, platelet count 270,000. There was a left shift with neutrophils done manually at 85%. Chemistries: Sodium 137, potassium 5.9, chloride 105, CO2 is 26 mmol, BUN 17, creatinine 0.8 mg/dL, random glucose 170 mg/dL, magnesium 2 mg/dL. AST was elevated at 56. ALT was 30. CK was 114, troponin less than 0.2. BNP was 334.93. TSH was 1.03. Total protein was 7.2 g/dL. Albumin 3.3. Urinalysis revealed 2+ protein, trace ketones, 4 WBCs, less than 1 RBCs, rare bacteria, rare urine mucus. X-ray chest impression: Mild cardiomegaly with mild pulmonary venous congestion. Bibasilar atelectatic changes with probable infiltrates on the left and with a small left pleural effusion. CT of the head impression: Moderate atrophy, ventricular dilatation, and periventricular chronic microvascular ischemic changes. Interval low-intensity density in the right posterior frontal/parietal junction consistent with acute/subacute infarct. Correlation with MRI of the brain is needed. Echocardiogram interpretation summary: Left ventricle size thickness and function are normal. The right ventricle is normal in size and function. The left atrium is moderately dilated. There is [id number] mitral annular calcification. There is [id number] mitral regurgitation. ECG on admission reveals sinus rhythm with frequent unifocal and single ventricular premature beats. Report is pending. IMPRESSION: 1. Acute shortness of breath, etiology A. Secondary to acute left ventricular failure precipitated by accelerated hypertension. B. Secondary to pneumonia/sepsis. 2. Acute/subacute cerebrovascular disease as reported on CT scan. 3. History of hypercholesterolemia. 4. Altered mental status. 5. Ventricular premature beats. 6. Hyperkalemia. RECOMMENDATIONS: 1. Serial EKG and enzymes. 2. Correction of hyperkalemia. 3. Concur with admitting the patient to CCU. 4. Control of blood pressure and progress. 5. Further suggestions depending her response to therapy. The patient had been hospitalized many years ago with acute sepsis related to renal lithiasis and urinary tract infection associated with pancytopenia and respiratory failure. Thank you for your referral. DOUG CUETO M.D. [id number]
--- NOTE | 2017-09-06 21:35 | CONSULT ---
Consultation: REQUESTING PROVIDER: CONSULT REQUEST: We have been asked to medically evaluate this patient for HTN urgency management. 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 Yap to sob, wheezing and weakness/malaise since this morning. She states that she was in her usual health yesterday when she was seeing patients in her private practice. Due to emergence of aboe described symptoms this morning, she prescribed herself and took Lasix 20 mg po. Per son, she appeared more lethargic later in the afternoon. Patient however states that she felt better after taking the Lasix. In Ed she was found to be severely hypertensive 225/83 and lethargic but aaox 3 w/o any sob. Brought to ICu with systolic pressure 140 mmHg, slightly lethargic but otherwise asymptomatic. She denies CP, recent edema, weight gain, calf pain, recent uri, cough, loss of appetite, n/v, diarrhea, f/c, abd pain, h/a, change in vision or weakness/ numbness, slurry speech. CT head shows subacute R sided ischemic lesion at parieto-frontal junction. REVIEW OF SYSTEMS: CONSTITUTIONAL: Absent: fever, chills, diaphoresis HEENT: Absent: rhinorrhea, nasal congestion, throat pain, throat swelling, CARDIOVASCULAR: Absent: chest pain, syncope, palpitations, irregular heart rate, lightheadedness , peripheral edema RESPIRATORY: Absent: cough, shortness of breath, dyspnea with exertion, orthopnea, wheezing, stridor, hemoptysis GASTROINTESTINAL: Absent: abdominal pain, abdominal distension, nausea, vomiting, diarrhea, constipation, melena, hematochezia GENITOURINARY: Absent: dysuria, MUSCULOSKELETAL: Absent: back pain, neck pain SKIN: Absent: rash, itching, pallor HEMATOLOGIC/IMMUNOLOGIC: Absent: frequent infections ENDOCRINE: Absent: unexplained weight gain, unexplained weight loss, heat intolerance, cold intolerance NEUROLOGIC: Absent: headache, focal weakness or paresthesias PSYCHIATRIC: Absent: anxiety, depression PHYSICAL EXAMINATION Vital Signs - 24 hr 09/06/17 09/06/17 09/06/17 11:56 11:57 13:13 Temperature 97.9 F Pulse Rate 75 84 Pulse Rate [ 84 Left Apical] Respiratory 15 16 Rate Blood Pressure 190/83 Blood Pressure 225/83 [Left Arm] O2 Sat by Pulse 100 93 L 100 Oximetry (%) 09/06/17 09/06/17 09/06/17 13:48 14:30 16:09 Temperature 98.6 F 97.6 F Pulse Rate Pulse Rate [ 84 81 77 Left Apical] Respiratory 16 16 16 Rate Blood Pressure Blood Pressure 144/54 162/76 184/79 [Left Arm] O2 Sat by Pulse 94 L 95 99 Oximetry (%) 09/06/17 09/06/17 17:15 18:22 Temperature 97.8 F 98.0 F Pulse Rate Pulse Rate [ 72 75 Left Apical] Respiratory 16 16 Rate Blood Pressure Blood Pressure 167/78 130/61 [Left Arm] O2 Sat by Pulse 96 98 Oximetry (%) GENERAL: Awake, alert, and fully oriented, in no acute distress, mildly lethargic HEAD: Normal with no signs of trauma. EYES: Pupils equal, round and reactive to light, extraocular movements intact, sclera anicteric, conjunctiva clear. No lid lag. fundoscopic exam difficult to perform, refuses to keep eyes open EARS, NOSE, THROAT: dry mucous membranes. NECK: Nsupple + JVD at 30+ recline LUNGS: bibasilar ronchi, mild HEART: Regular rate and rhythm, normal S1 and S2 ABDOMEN: Soft, nontender, not distended, normoactive bowel sounds, no guarding, no rebound, no masses. MUSCULOSKELETAL: No CVA tenderness. UPPER EXTREMITIES: 2+ pulses, warm, well-perfused. No peripheral edema. LOWER EXTREMITIES: 2+ pulses, warm, well-perfused. No calf tenderness. No peripheral edema. NEUROLOGICAL: Cranial nerves II-XII intact. UE and LE strenght and sensation intact. Normal speech. PSYCHIATRIC: Appropriate mood and affect. SKIN: Warm, dry Laboratory Results - last 24 hr 09/06/17 09/06/17 09/06/17 12:29 12:29 12:29 WBC 28.0 H D RBC 5.12 Hgb 15.1 Hct 46.4 H MCV 90.6 MCH 29.4 MCHC 32.5 RDW 12.7 Plt Count 270 MPV 8.0 Total Counted 100 Neutrophils % No Result Required. Neutrophils % (Manual) 85.0 H Lymphocytes % No Result Required. Lymphocytes % (Manual) 4.0 L Monocytes % (Manual) 11 H Platelet Estimate Adequate PT with INR 11.50 INR 1.02 PTT (Actin FS) 31.6 VBG pH 7.35 POC VBG pCO2 55.5 H POC VBG pO2 17.8 L* Mixed VBG HCO3 29.6 H Sodium Potassium Chloride Carbon Dioxide Anion Gap BUN Creatinine Creat Clearance w eGFR Random Glucose Lactic Acid Calcium Magnesium Total Bilirubin AST ALT Alkaline Phosphatase Creatine Kinase Troponin I B-Natriuretic Peptide Total Protein Albumin TSH Urine Color Urine Appearance Urine pH Ur Specific [place] Urine Protein Urine Glucose (UA) Urine Ketones Urine Blood Urine Nitrite Urine Bilirubin Urine Urobilinogen Ur Leukocyte Esterase Urine WBC (Auto) Urine RBC (Auto) Urine Bacteria Urine Mucus Blood Type Antibody Screen Spec Expiration Date 09/06/17 09/06/17 09/06/17 12:29 12:29 13:00 WBC RBC Hgb Hct MCV MCH MCHC RDW Plt Count MPV Total Counted Neutrophils % Neutrophils % (Manual) Lymphocytes % Lymphocytes % (Manual) Monocytes % (Manual) Platelet Estimate PT with INR INR PTT (Actin FS) VBG pH POC VBG pCO2 POC VBG pO2 Mixed VBG HCO3 Sodium 137 Potassium 5.9 H D Chloride 105 Carbon Dioxide 26 Anion Gap 6 L BUN 17 Creatinine 0.8 Creat Clearance w eGFR > 60 Random Glucose 170 H D Lactic Acid 1.9 Calcium 8.4 L Magnesium Total Bilirubin 1.0 D AST 56 H D ALT 30 D Alkaline Phosphatase 102 Creatine Kinase 114 Troponin I < 0.02 B-Natriuretic Peptide Total Protein 7.2 Albumin 3.3 L TSH Urine Color Urine Appearance Urine pH Ur Specific [place] Urine Protein Urine Glucose (UA) Urine Ketones Urine Blood Urine Nitrite Urine Bilirubin Urine Urobilinogen Ur Leukocyte Esterase Urine WBC (Auto) Urine RBC (Auto) Urine Bacteria Urine Mucus Blood Type O POSITIVE Antibody Screen Negative Spec Expiration Date 09/06/17 09/06/17 09/06/17 15:00 16:30 16:40 WBC RBC Hgb Hct MCV MCH MCHC RDW Plt Count MPV Total Counted Neutrophils % Neutrophils % (Manual) Lymphocytes % Lymphocytes % (Manual) Monocytes % (Manual) Platelet Estimate PT with INR INR PTT (Actin FS) VBG pH POC VBG pCO2 POC VBG pO2 Mixed VBG HCO3 Sodium Potassium Chloride Carbon Dioxide Anion Gap BUN Creatinine Creat Clearance w eGFR Random Glucose Lactic Acid Calcium Magnesium 2.0 Total Bilirubin AST ALT Alkaline Phosphatase Creatine Kinase Troponin I B-Natriuretic Peptide Total Protein Albumin TSH 1.01 Urine Color Ltyellow Urine Appearance Clear Urine pH 6.0 Ur Specific [place] 1.012 Urine Protein 2+ H Urine Glucose (UA) Negative Urine Ketones Trace H Urine Blood Negative Urine Nitrite Positive Urine Bilirubin Negative Urine Urobilinogen Negative Ur Leukocyte Esterase Negative Urine WBC (Auto) 4 Urine RBC (Auto) <1 Urine Bacteria Rare Urine Mucus Rare Blood Type O POSITIVE Antibody Screen Cancelled Spec Expiration Date Cancelled 09/06/17 16:52 WBC RBC Hgb Hct MCV MCH MCHC RDW Plt Count MPV Total Counted Neutrophils % Neutrophils % (Manual) Lymphocytes % Lymphocytes % (Manual) Monocytes % (Manual) Platelet Estimate PT with INR INR PTT (Actin FS) VBG pH POC VBG pCO2 POC VBG pO2 Mixed VBG HCO3 Sodium Potassium Chloride Carbon Dioxide Anion Gap BUN Creatinine Creat Clearance w eGFR Random Glucose Lactic Acid Calcium Magnesium Total Bilirubin AST ALT Alkaline Phosphatase Creatine Kinase Troponin I B-Natriuretic Peptide 3034.93 H Total Protein Albumin TSH Urine Color Urine Appearance Urine pH Ur Specific [place] Urine Protein Urine Glucose (UA) Urine Ketones Urine Blood Urine Nitrite Urine Bilirubin Urine Urobilinogen Ur Leukocyte Esterase Urine WBC (Auto) Urine RBC (Auto) Urine Bacteria Urine Mucus Blood Type Antibody Screen Spec Expiration Date Active Medications Generic Name Dose Route Start Last Admin Trade Name Freq PRN Reason Stop Dose Admin Albuterol Sulfate 1 amp 09/06/17 18:00 09/06/17 18:02 Ventolin 0.083% Nebulizer Soln - NEB 1 amp QIDR SHAHRAM Administration Aspirin 81 mg 09/07/17 10:00 Asa - PO DAILY SHAHRAM Atorvastatin Calcium 40 mg 09/06/17 22:00 Lipitor - PO HS SHAHRAM Chlorhexidine Gluconate 1 applic 09/06/17 22:00 Hibiclens For Decolonization - TP HS SHAHRAM Furosemide 40 mg 09/06/17 16:57 Lasix Injection - IVPUSH DAILY SHAHRAM Heparin Sodium (Porcine) 5,000 unit 09/06/17 15:08 Heparin - SQ TID SHAHRAM Sodium Chloride 1,000 mls @ 42 mls/hr 09/06/17 12:45 09/06/17 13:14 Normal Saline - IV 42 mls/hr ASDIR SHAHRAM Administration Azithromycin 500 mg/ Dextrose 250 mls @ 250 mls/hr 09/06/17 14:33 09/06/17 16 :08 IVPB 250 mls/hr DAILY SHARHAM Administration Ceftriaxone Sodium 1 gm/ 50 mls @ 100 mls/hr 09/07/17 10:00 Dextrose IVPB DAILY SHAHRAM Labetalol HCl 10 mg 09/06/17 17:01 Normodyne Injection - IVPUSH Q3H PRN HEADACHE Mupirocin 1 applic 09/06/17 22:00 Bactroban Ointment (For Decolonization) - NS 09/11/17 21:59 BID SHAHRAM Sodium Chloride 620 ml 09/06/17 12:25 Normal Saline - IV Q20M PRN MAP<65mm Hg OR SBP <90 ASSESSMENT/PLAN: 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 Yap to sob, wheezing and weakness/malaise since this morning. Neuro *lethargy (mild *subacute CVA, asymptpmatic -CT head: R sided ischemic lesion at parieto-frontal junction -Neuro on case; start plavix, permissive HTN goal 160-180 mmHg systolic for 24 hr -tele monitoring -may have diet -No hep gtt needed Pulm *CAP -CXR shows bibasilar infiltrates -leukocytosis 28 -abx coverage azithro/rocephin -f/u cultures -ventolin prn CV *Possible HFPEF exacerbation, incited by pna *HTN emergency , in setting of asymptomatic subacute CVA, possible mild htn encephalopathy -TTE normal RV, LF fxn. -History of heavy smoking and cephalization/congestion of cxr, may have pulm HTN and diastolic failure -Lasix 40 IV daily with hold parameters < systolic 160 mmHg/permissive HTN -Labetalol 10 IV prn, hold parameters as above GI *tranaminitis -mild AST elevation 56 from 1 yr ago -could be due to statin therapy; will trend FEN -NS @ 42 while BP low -hyperkalemia treated; refuses repeat lab -na controlled diet Dispo: We will continue to follow the patient. Thank you for this consultative opportunity. Problem List - Problems (1) Altered mental status Code(s): R41.82 - ALTERED MENTAL STATUS, UNSPECIFIED Qualifiers: Altered mental status type: transient alteration of awareness Qualified Code(s): R40.4 - Transient alteration of awareness (2) CVA (cerebral vascular accident) Code(s): I63.9 - CEREBRAL INFARCTION, UNSPECIFIED Qualifiers: CVA mechanism: unspecified Qualified Code(s): I63.9 - Cerebral infarction, unspecified (3) Hypertensive emergency Code(s): I16.1 - HYPERTENSIVE EMERGENCY (4) Pneumonia Code(s): J18.9 - PNEUMONIA, UNSPECIFIED ORGANISM Qualifiers: Pneumonia type: due to unspecified organism Laterality: left Lung location: lower lobe of lung Qualified Code(s): J18.1 - Lobar pneumonia, unspecified organism (5) Transaminitis Code(s): R74.0 - NONSPEC ELEV OF LEVELS OF TRANSAMNS & LACTIC ACID DEHYDRGNSE (6) Hyperkalemia Code(s): E87.5 - HYPERKALEMIA (7) (HFpEF) heart failure with preserved ejection fraction Code(s): I50.30 - UNSPECIFIED DIASTOLIC (CONGESTIVE) HEART FAILURE Visit type - Emergency Visit Emergency Visit: Yes ED Registration Date: 09/06/17 Care time: The patient presented to the Emergency Department on the above date and was hospitalized for further evaluation of their emergent condition. - New Patient This patient is new to me today: Yes Date on this admission: 09/06/17 - Critical Care Critical Care patient: Yes Total Critical Care Time (in minutes): 35 Critical Care Statement: The care of this patient involved high complexity decision making to prevent further life threatening deterioration of the patient 's condition and/or to evaluate & treat vital organ system(s) failure or risk of failure.
[2017-09-06 22:52] VITALS: BMI 23.6
[2017-09-06] MEDS: MUPIROCIN 2% TOPICAL OINTMENT FOR DECOLONIZATION NS SCH (23:06)
[2017-09-06] MEDS: HEPARIN NA (PORCINE) 5,000 UNITS/ML 1ML VIAL SQ SCH (23:07)
[2017-09-06] MEDS: CHLORHEXIDINE GLUCONATE 4% CLEANSER FOR DECOLONIZATION TP SCH (23:08)
[2017-09-06] MEDS: ACETAMINOPHEN 1000 MG/100 ML VIAL (NON FORMULARY) IVPB PRN (23:09)
[2017-09-06] MEDS: ATORVASTATIN CA 40 MG TABLET (FP) PO SCH (23:09)
--- NOTE | 2017-09-07 05:00 | PN ---
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 (short form) - Note 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: Paged for nursing staff for pt becoming extremely combative, pulling out her IV , and exiting bed without assist multiple times. Pt also attempted to scratch staff. Upon arrival patient flailing legs around and yelling at healthcare staff how she "doesn't give a damn about [anything]." Nursing staff reports to me that she has been refusing her treatment and labs previously, and that she has been taking her oxygen off. Pt was noted to be 85% off her oxygen and VM was placed bringing her to 95% SpO2. Unable to fully examine due to combative behaviour and flailing legs a/p Cannot give ativan, valium, haldol due to altered states as reported to me [place] vest for pt due to combative behaviour and frequent attempts to leave the bed without assist which could put herself at danger for a fall. Titrate SpO2 >90% Will reassess
[2017-09-07] MEDS ORDERED: HALOPERIDOL LACTATE 5 MG/ML ONE (05:30)
[2017-09-07] MEDS ORDERED: HALOPERIDOL LACTATE 5 MG/ML IM ONE (05:45)
[2017-09-07 06:20] LABS: BASO % 0.2 % (0-2.0); EOS % 0.5 % (0-4.5); HEMATOCRIT 40.6 % (32.4-45.2); HEMOGLOBIN 13.9 GM/dL (10.7-15.3); LYMPH % 4.5 % (8-40); MCH 30.6 pg (25.7-33.7); MCHC 34.1 g/dl (32.0-36.0); MEAN CELL VOLUME 89.7 fl (80-96); MEAN PLT VOLUME 9.1 fl (7.5-11.1); MONO % 13.7 % (3.8-10.2); NEUT % 81.1 % (42.8-82.8); PLATELET COUNT 257 K/MM3 (134-434); RBC 4.53 M/mm3 (3.60-5.2); RDW 12.6 % (11.6-15.6)
[2017-09-07] MEDS: ALBUTEROL SO4 0.083% IH SOL 2.5 MG/3 ML VIAL.NEB. NEB SCH ×3 (06:37→17:15)
[2017-09-07 06:39] LABS: ALBUMIN 3.1 g/dl (3.4-5.0); ANION GAP 9 (8-16); BLOOD UREA NITROGEN 11 mg/dL (7-18); CALCIUM 8.3 mg/dL (8.5-10.1); CHLORIDE 99 mmol/L (98-107); CHOLESTEROL 130 mg/dL (50-200); CO2 28 mmol/L (21-32); CREATININE 0.7 mg/dL (0.55-1.02); GLUCOSE,RANDOM 164 mg/dL (74-106); LDL CHOLESTEROL (ONLY SJRH) 68 mg/dL (5-100); MAGNESIUM 1.8 mg/dL (1.8-2.4); PHOSPHOROUS 3.3 mg/dL (2.5-4.9); POTASSIUM 3.6 mmol/L (3.5-5.1); SGOT/AST 16 U/L (15-37); SGPT/ALT 22 U/L (12-78); SODIUM 136 mmol/L (136-145); TOT PROT 6.2 g/dl (6.4-8.2); TRIGLYCERIDES 85 mg/dL (35-160)
[2017-09-07 06:40] LABS: ALK PHOS 86 U/L (45-117); BILIRUBIN,TOTAL 1.3 mg/dL (0.2-1.0); HDL CHOLESTEROL 55 mg/dL (40-60)
--- NOTE | 2017-09-07 07:43 | PN ---
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, Physician Chief Complaint: ID Poorly responsive but nursing says she got Haldol Ceftriaxone and Azithromycn offered for possible pneumonia - Current Medication List Current Medications: Active Medications Acetaminophen (Ofirmev Injection -) 1,000 mg IVPB Q6H PRN PRN Reason: FEVER OR PAIN Last Admin: 09/06/17 23:09 Dose: 1,000 mg Albuterol Sulfate (Ventolin 0.083% Nebulizer Soln -) 1 amp NEB QIDR [facility] Last Admin: 09/07/17 06:37 Dose: 1 amp Aspirin (Asa -) 81 mg PO DAILY [facility] Atorvastatin Calcium (Lipitor -) 40 mg PO HS [facility] Last Admin: 09/06/17 23:09 Dose: Not Given Chlorhexidine Gluconate (Hibiclens For Decolonization -) 1 applic TP HS [facility] Last Admin: 09/06/17 23:08 Dose: 1 applic Furosemide (Lasix Injection -) 40 mg IVPUSH DAILY [facility] Heparin Sodium (Porcine) (Heparin -) 5,000 unit SQ TID [facility] Last Admin: 09/06/17 23:07 Dose: 5,000 unit Sodium Chloride (Normal Saline -) 1,000 mls @ 42 mls/hr IV ASDIR [facility] Last Admin: 09/06/17 23:05 Dose: 42 mls/hr Azithromycin 500 mg/ Dextrose 250 mls @ 250 mls/hr IVPB DAILY [facility] Last Admin: 09/06/17 16:08 Dose: 250 mls/hr Ceftriaxone Sodium 1 gm/ (Dextrose) 50 mls @ 100 mls/hr IVPB DAILY [facility] Labetalol HCl (Normodyne Injection -) 10 mg IVPUSH Q3H PRN PRN Reason: HEADACHE Mupirocin (Bactroban Ointment (For Decolonization) -) 1 applic NS BID [facility] Stop: 09/11/17 21:59 Last Admin: 09/06/17 23:06 Dose: 1 applic - Objective Vital Signs: Vital Signs Temperature 98.2 F 09/07/17 02:00 Pulse Rate 76 09/07/17 05:50 Respiratory Rate 22 09/07/17 05:50 Blood Pressure 166/72 09/07/17 05:50 O2 Sat by Pulse Oximetry (%) 95 09/06/17 22:36 Constitutional: Yes: Mild Distress, Other (Poorly responsive) Cardiovascular: Yes: S1, S2 Respiratory: Yes: WNL, Regular, CTA Bilaterally. No: Rhonchi Gastrointestinal: Yes: WNL, Normal Bowel Sounds, Soft. No: Tenderness, Tenderness, Rebound Extremities: No: Cold, Cool, Cyanosis Edema: No Labs: CBC, BMP 09/07/17 05:55 09/07/17 05:55 INR, PTT INR 1.02 (0.82-1.09) 09/06/17 12:29 Problem List - Problems (1) (HFpEF) heart failure with preserved ejection fraction Code(s): I50.30 - UNSPECIFIED DIASTOLIC (CONGESTIVE) HEART FAILURE (2) CVA (cerebral vascular accident) Code(s): I63.9 - CEREBRAL INFARCTION, UNSPECIFIED Qualifiers: CVA mechanism: unspecified Qualified Code(s): I63.9 - Cerebral infarction, unspecified (3) Pneumonia Code(s): J18.9 - PNEUMONIA, UNSPECIFIED ORGANISM Qualifiers: Pneumonia type: due to unspecified organism Laterality: left Lung location: lower lobe of lung Qualified Code(s): J18.1 - Lobar pneumonia, unspecified organism Assessment/Plan Microbiology 09/06/17 16:00 Nasopharyngeal Swab Influenza Types A,B Antigen (TORRES) - Final 09/06/17 16:00 Nasopharyngeal Swab - Final Laboratory Tests 09/06/17 09/06/17 09/07/17 13:00 15:00 05:55 WBC 25.0 H Hct 40.6 Plt Count 257 Neutrophils % 81.1 D Lymphocytes % 4.5 L D Monocytes % 13.7 H BUN Lactic Acid 1.9 Urine WBC (Auto) 4 Urine RBC (Auto) <1 09/07/17 05:55 WBC Hct Plt Count Neutrophils % Lymphocytes % Monocytes % BUN 11 D Lactic Acid Urine WBC (Auto) Urine RBC (Auto) Assessment Acute CVA acute subacute Hypertension with stroke Leukomoid response unclear if related to pneumonia vs stress response but on antibiotic coverage Pulmonary infiltrates vs congestive heart failure Does not seem like she aspirated per the history Recent URI Plan Continue current antibiotics as ordered CRP Legionella AG 38 minutes ICU critical care time spent in today evaluation José Luis SRINIVASAN Legionella AG awiat culture
[2017-09-07] MEDS: HEPARIN NA (PORCINE) 5,000 UNITS/ML 1ML VIAL SQ SCH (07:57)
[2017-09-07] MEDS ORDERED: FUROSEMIDE 40 MG/4 ML INJECTABLE VIAL IVPUSH SCH (10:00)
[2017-09-07] MEDS ORDERED: ASPIRIN 81 MG CHEWABLE TABLETS PO SCH (10:00)
[2017-09-07] MEDS ORDERED: LORazepam 2 MG/ML SDV VIAL IVPUSH ONE (10:13)
[2017-09-07] MEDS ORDERED: LORazepam 2 MG/ML SDV VIAL ONE ×2 (10:16→11:43)
--- NOTE | 2017-09-07 10:19 | PN ---
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, Physician Chief Complaint: 82 year old female admitted with dyspnea, nausea, mental confusion seen in the CCU. Patient is confused and agitated, requiring sedation. She remain hypertensive and noted to have unifocal ventricular premature beats. - Current Medication List Current Medications: Active Medications Acetaminophen (Ofirmev Injection -) 1,000 mg IVPB Q6H PRN PRN Reason: FEVER OR PAIN Last Admin: 09/06/17 23:09 Dose: 1,000 mg Albuterol Sulfate (Ventolin 0.083% Nebulizer Soln -) [address] [facility] Last Admin: 09/07/17 06:37 Dose: 1 amp Aspirin (Asa -) [address] [facility] Atorvastatin Calcium (Lipitor -) [address] [facility] Last Admin: 09/06/17 23:09 Dose: Not Given Chlorhexidine Gluconate (Hibiclens For Decolonization -) [address] [facility] Last Admin: 09/06/17 23:08 Dose: 1 applic Furosemide (Lasix Injection -) [address] [facility] Heparin Sodium (Porcine) (Heparin -) 5,[address] [facility] Last Admin: 09/07/17 07:57 Dose: 5,000 unit Sodium Chloride (Normal Saline -) 1,000 mls @ 42 mls/hr IV ASDIR [facility] Last Admin: 09/06/17 23:05 Dose: 42 mls/hr Azithromycin 500 mg/ Dextrose 250 mls @ 250 mls/hr IVPB DAILY [facility] Last Admin: 09/06/17 16:08 Dose: 250 mls/hr Ceftriaxone Sodium 1 gm/ (Dextrose) 50 mls @ 100 mls/hr IVPB DAILY [facility] Labetalol HCl (Normodyne Injection -) 10 mg IVPUSH Q3H PRN PRN Reason: HEADACHE Mupirocin (Bactroban Ointment (For Decolonization) -) [address] [facility] Stop: 09/11/17 21:59 Last Admin: 09/06/17 23:06 Dose: 1 applic - Objective Vital Signs: Vital Signs Temperature 98.2 F 09/07/17 02:00 Pulse Rate 81 09/07/17 10:00 Respiratory Rate 22 09/07/17 10:00 Blood Pressure 170/106 09/07/17 10:00 O2 Sat by Pulse Oximetry (%) 95 09/06/17 22:36 HENT: Yes: Other (Normocephalic. BARAK. Mouth and tongue are dry.) Neck: Yes: Other (No JVD, unable to appreciate carotid bruits.) Cardiovascular: Yes: Other (Heart sounds obscured by harsh breath sounds.) Respiratory: Yes: Diminished (Diminished at the left base. Unable to appreciate crepitations, scattered expiratory wheeze.), [place] Gastrointestinal: Yes: Soft (Nontender), Other (Decreased bowel sounds. No hepatosplenomegaly.). No: Normal Bowel Sounds Edema: No Peripheral Pulses: Left Radial: 2+, Right Radial: 2+, Left Doralis Pedis: 1+, Right Dorsalis Pedis: 1+, Left Femoral: 2+, Right Femoral: 2+ Neurological: Yes: Confusion (and disoriented.) Labs: CBC, BMP 09/07/17 05:55 09/07/17 05:55 INR, PTT INR 1.02 (0.82-1.09) 09/06/17 12:29 Problem List - Problems (1) Sepsis Code(s): A41.9 - SEPSIS, UNSPECIFIED ORGANISM (2) Accelerated hypertension Code(s): I10 - ESSENTIAL (PRIMARY) HYPERTENSION (3) Ventricular premature beats, contractions, or systoles Code(s): I49.3 - VENTRICULAR PREMATURE DEPOLARIZATION (4) Altered mental status Code(s): R41.82 - ALTERED MENTAL STATUS, UNSPECIFIED Qualifiers: Altered mental status type: transient alteration of awareness Qualified Code(s): R40.4 - Transient alteration of awareness (5) Pneumonia Code(s): J18.9 - PNEUMONIA, UNSPECIFIED ORGANISM Qualifiers: Pneumonia type: due to unspecified organism Laterality: left Lung location: lower lobe of lung Qualified Code(s): J18.1 - Lobar pneumonia, unspecified organism (6) Left ventricular failure Code(s): I50.1 - LEFT VENTRICULAR FAILURE, UNSPECIFIED Assessment/Plan Prognosis: Critical
[2017-09-07] MEDS ORDERED: METOPROLOL TARTRATE 5 MG/5 ML VIAL IVPUSH ONE (10:40)
--- NOTE | 2017-09-07 10:41 | PN ---
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 CT head shows subacute R sided ischemic lesion at parieto-frontal junction Pt is reported to be quite agitated. Asked by nursing to defer evaluation. Pt is NPO including medication.
--- NOTE | 2017-09-07 10:48 | EKG ---
Test Reason : Blood Pressure : / mmHG Vent. Rate : 082 BPM Atrial Rate : 082 BPM P-R Int : 140 ms QRS Dur : 072 ms QT Int : 392 ms P-R-T Axes : 041 051 058 degrees QTc Int : 457 ms POOR DATA QUALITY, INTERPRETATION MAY BE ADVERSELY AFFECTED SINUS RHYTHM WITH FREQUENT PREMATURE VENTRICULAR COMPLEXES POSSIBLE LEFT ATRIAL ENLARGEMENT NONSPECIFIC ST ABNORMALITY ABNORMAL ECG Confirmed by MD KALEN, YAAKOV ([id number]) on 09/07/2017 10:48:11 AM Referred By: Confirmed By:YAAKOV HIGUERA MD
[2017-09-07] MEDS ORDERED: METOPROLOL TARTRATE 5 MG/5 ML VIAL ONE (10:49)
[2017-09-07] MEDS ORDERED: PT OWN MED DRAWER 7, Y5N ONE ×2 (10:49→13:51)
[2017-09-07] MEDS: METOPROLOL TARTRATE 5 MG/5 ML VIAL IVPUSH SCH ×2 (10:51→16:59)
[2017-09-07] MEDS: AZITHROMYCIN IVPB 500 MG in DEXTROSE 5%-WATER - 250 ML IVPB SCH (11:00)
--- NOTE | 2017-09-07 11:51 | PN ---
Teaching Attending Note Name of Resident: Tasha Mon ATTENDING PHYSICIAN STATEMENT I saw and evaluated the patient. I reviewed the resident's note and discussed the case with the resident. I agree with the resident's findings and plan as documented. SUBJECTIVE: Patient seen and examined in the ICU. Agitated requiring Haldol and Ativan. Seen by Neurology, clinical impression is acute CVA with possible brainstem involvement. Intake & Output 09/04/17 09/05/17 09/06/17 09/07/17 23:59 23:59 23:59 23:59 Intake Total 292 420 Output Total 500 Balance 292 -80 Weight 124 lb 12.506 oz Last Vital Signs Temp Pulse Resp BP Pulse Ox 98.2 F 78 22 174/67 99 09/07/17 02:00 09/07/17 10:51 09/07/17 10:00 09/07/17 10:51 09/07/17 10:39 Active Medications Acetaminophen (Ofirmev Injection -) 1,000 mg IVPB Q6H PRN PRN Reason: FEVER OR PAIN Last Admin: 09/06/17 23:09 Dose: 1,000 mg Albuterol Sulfate (Ventolin 0.083% Nebulizer Soln -) 1 amp NEB QIDR SHAHRAM Last Admin: 09/07/17 06:37 Dose: 1 amp Atorvastatin Calcium (Lipitor -) 40 mg PO HS [facility] Last Admin: 09/06/17 23:09 Dose: Not Given Chlorhexidine Gluconate (Hibiclens For Decolonization -) 1 applic TP HS [facility] Last Admin: 09/06/17 23:08 Dose: 1 applic Heparin Sodium (Porcine) (Heparin -) 5,000 unit SQ TID [facility] Last Admin: 09/07/17 07:57 Dose: 5,000 unit Sodium Chloride (Normal Saline -) 1,000 mls @ 42 mls/hr IV ASDIR SHAHRAM Last Admin: 09/06/17 23:05 Dose: 42 mls/hr Azithromycin 500 mg/ Dextrose 250 mls @ 250 mls/hr IVPB DAILY SHAHRAM Last Admin: 09/07/17 11:00 Dose: 250 mls/hr Ceftriaxone Sodium 1 gm/ (Dextrose) 50 mls @ 100 mls/hr IVPB DAILY SHAHRAM Labetalol HCl (Normodyne Injection -) 10 mg IVPUSH Q3H PRN PRN Reason: HEADACHE Metoprolol Tartrate (Lopressor Injection -) 5 mg IVPUSH TID [facility] Last Admin: 09/07/17 10:51 Dose: 5 mg Mupirocin (Bactroban Ointment (For Decolonization) -) 1 applic NS BID [facility] Stop: 09/11/17 21:59 Last Admin: 09/06/17 23:06 Dose: 1 applic GENERAL: Confused, agitated HEAD: Normal with no signs of trauma. EYES: Pupils pinpoint, sclera anicteric, conjunctiva clear. EARS, NOSE, THROAT: dry mucous membranes. NECK: supple LUNGS: few basilar rhonchi HEART: Regular rate and rhythm, normal S1 and S2 ABDOMEN: Soft, nontender, not distended, normoactive bowel sounds, no guarding, no rebound, no masses. MUSCULOSKELETAL: No CVA tenderness. UPPER EXTREMITIES: 2+ pulses, warm, well-perfused. No peripheral edema. LOWER EXTREMITIES: 2+ pulses, warm, well-perfused. No calf tenderness. No peripheral edema. NEUROLOGICAL: right weakness, confused PSYCHIATRIC: confused. SKIN: Warm, dry Laboratory Results - last 24 hr 09/06/17 09/06/17 09/06/17 12:29 12:29 12:29 WBC 28.0 H D RBC 5.12 Hgb 15.1 Hct 46.4 H MCV 90.6 MCH 29.4 MCHC 32.5 RDW 12.7 Plt Count 270 MPV 8.0 Total Counted 100 Neutrophils % No Result Required. Neutrophils % (Manual) 85.0 H Lymphocytes % No Result Required. Lymphocytes % (Manual) 4.0 L Monocytes % Monocytes % (Manual) 11 H Eosinophils % Basophils % Platelet Estimate Adequate PT with INR 11.50 INR 1.02 PTT (Actin FS) 31.6 VBG pH 7.35 POC VBG pCO2 55.5 H POC VBG pO2 17.8 L* Mixed VBG HCO3 29.6 H Sodium Potassium Chloride Carbon Dioxide Anion Gap BUN Creatinine Creat Clearance w eGFR Random Glucose Hemoglobin A1c % Lactic Acid Calcium Phosphorus Magnesium Total Bilirubin AST ALT Alkaline Phosphatase Creatine Kinase Troponin I B-Natriuretic Peptide Total Protein Albumin Triglycerides Cholesterol Total LDL Cholesterol HDL Cholesterol TSH Urine Color Urine Appearance Urine pH Ur Specific [place] Urine Protein Urine Glucose (UA) Urine Ketones Urine Blood Urine Nitrite Urine Bilirubin Urine Urobilinogen Ur Leukocyte Esterase Urine WBC (Auto) Urine RBC (Auto) Urine Bacteria Urine Mucus Blood Type Antibody Screen Spec Expiration Date 09/06/17 09/06/17 09/06/17 12:29 12:29 13:00 WBC RBC Hgb Hct MCV MCH MCHC RDW Plt Count MPV Total Counted Neutrophils % Neutrophils % (Manual) Lymphocytes % Lymphocytes % (Manual) Monocytes % Monocytes % (Manual) Eosinophils % Basophils % Platelet Estimate PT with INR INR PTT (Actin FS) VBG pH POC VBG pCO2 POC VBG pO2 Mixed VBG HCO3 Sodium 137 Potassium 5.9 H D Chloride 105 Carbon Dioxide 26 Anion Gap 6 L BUN 17 Creatinine 0.8 Creat Clearance w eGFR > 60 Random Glucose 170 H D Hemoglobin A1c % Lactic Acid 1.9 Calcium 8.4 L Phosphorus Magnesium Total Bilirubin 1.0 D AST 56 H D ALT 30 D Alkaline Phosphatase 102 Creatine Kinase 114 Troponin I < 0.02 B-Natriuretic Peptide Total Protein 7.2 Albumin 3.3 L Triglycerides Cholesterol Total LDL Cholesterol HDL Cholesterol TSH Urine Color Urine Appearance Urine pH Ur Specific [place] Urine Protein Urine Glucose (UA) Urine Ketones Urine Blood Urine Nitrite Urine Bilirubin Urine Urobilinogen Ur Leukocyte Esterase Urine WBC (Auto) Urine RBC (Auto) Urine Bacteria Urine Mucus Blood Type O POSITIVE Antibody Screen Negative Spec Expiration Date 09/06/17 09/06/17 09/06/17 15:00 16:30 16:40 WBC RBC Hgb Hct MCV MCH MCHC RDW Plt Count MPV Total Counted Neutrophils % Neutrophils % (Manual) Lymphocytes % Lymphocytes % (Manual) Monocytes % Monocytes % (Manual) Eosinophils % Basophils % Platelet Estimate PT with INR INR PTT (Actin FS) VBG pH POC VBG pCO2 POC VBG pO2 Mixed VBG HCO3 Sodium Potassium Chloride Carbon Dioxide Anion Gap BUN Creatinine Creat Clearance w eGFR Random Glucose Hemoglobin A1c % Lactic Acid Calcium Phosphorus Magnesium 2.0 Total Bilirubin AST ALT Alkaline Phosphatase Creatine Kinase Troponin I B-Natriuretic Peptide Total Protein Albumin Triglycerides Cholesterol Total LDL Cholesterol HDL Cholesterol TSH 1.01 Urine Color Ltyellow Urine Appearance Clear Urine pH 6.0 Ur Specific [place] 1.012 Urine Protein 2+ H Urine Glucose (UA) Negative Urine Ketones Trace H Urine Blood Negative Urine Nitrite Positive Urine Bilirubin Negative Urine Urobilinogen Negative Ur Leukocyte Esterase Negative Urine WBC (Auto) 4 Urine RBC (Auto) <1 Urine Bacteria Rare Urine Mucus Rare Blood Type O POSITIVE Antibody Screen Cancelled Spec Expiration Date Cancelled 09/06/17 09/07/17 09/07/17 16:52 05:55 05:55 WBC 25.0 H RBC 4.53 Hgb 13.9 Hct 40.6 MCV 89.7 MCH 30.6 MCHC 34.1 RDW 12.6 Plt Count 257 MPV 9.1 D Total Counted Neutrophils % 81.1 D Neutrophils % (Manual) Lymphocytes % 4.5 L D Lymphocytes % (Manual) Monocytes % 13.7 H Monocytes % (Manual) Eosinophils % 0.5 D Basophils % 0.2 Platelet Estimate PT with INR INR PTT (Actin FS) 32.5 VBG pH POC VBG pCO2 POC VBG pO2 Mixed VBG HCO3 Sodium Potassium Chloride Carbon Dioxide Anion Gap BUN Creatinine Creat Clearance w eGFR Random Glucose Hemoglobin A1c % Lactic Acid Calcium Phosphorus Magnesium Total Bilirubin AST ALT Alkaline Phosphatase Creatine Kinase Troponin I B-Natriuretic Peptide 3034.93 H Total Protein Albumin Triglycerides Cholesterol Total LDL Cholesterol HDL Cholesterol TSH Urine Color Urine Appearance Urine pH Ur Specific [place] Urine Protein Urine Glucose (UA) Urine Ketones Urine Blood Urine Nitrite Urine Bilirubin Urine Urobilinogen Ur Leukocyte Esterase Urine WBC (Auto) Urine RBC (Auto) Urine Bacteria Urine Mucus Blood Type Antibody Screen Spec Expiration Date 09/07/17 09/07/17 09/07/17 05:55 05:55 05:55 WBC RBC Hgb Hct MCV MCH MCHC RDW Plt Count MPV Total Counted Neutrophils % Neutrophils % (Manual) Lymphocytes % Lymphocytes % (Manual) Monocytes % Monocytes % (Manual) Eosinophils % Basophils % Platelet Estimate PT with INR INR PTT (Actin FS) VBG pH POC VBG pCO2 POC VBG pO2 Mixed VBG HCO3 Sodium 136 Potassium 3.6 D Chloride 99 Carbon Dioxide 28 Anion Gap 9 BUN 11 D Creatinine 0.7 Creat Clearance w eGFR > 60 Random Glucose 164 H Hemoglobin A1c % 6.0 Lactic Acid Calcium 8.3 L Phosphorus 3.3 Magnesium 1.8 Total Bilirubin 1.3 H D AST 16 D ALT 22 D Alkaline Phosphatase 86 Creatine Kinase Troponin I B-Natriuretic Peptide Total Protein 6.2 L Albumin 3.1 L Triglycerides 85 D Cancelled Cholesterol 130 D Cancelled Total LDL Cholesterol 68 Cancelled HDL Cholesterol 55 D Cancelled TSH Urine Color Urine Appearance Urine pH Ur Specific [place] Urine Protein Urine Glucose (UA) Urine Ketones Urine Blood Urine Nitrite Urine Bilirubin Urine Urobilinogen Ur Leukocyte Esterase Urine WBC (Auto) Urine RBC (Auto) Urine Bacteria Urine Mucus Blood Type Antibody Screen Spec Expiration Date Problem List - Problems (1) Altered mental status Code(s): R41.82 - ALTERED MENTAL STATUS, UNSPECIFIED Qualifiers: Altered mental status type: transient alteration of awareness Qualified Code(s): R40.4 - Transient alteration of awareness (2) CVA (cerebral vascular accident) Code(s): I63.9 - CEREBRAL INFARCTION, UNSPECIFIED Qualifiers: CVA mechanism: unspecified Qualified Code(s): I63.9 - Cerebral infarction, unspecified (3) Hypertensive emergency Code(s): I16.1 - HYPERTENSIVE EMERGENCY (4) Pneumonia Code(s): J18.9 - PNEUMONIA, UNSPECIFIED ORGANISM Qualifiers: Pneumonia type: due to unspecified organism Laterality: left Lung location: lower lobe of lung Qualified Code(s): J18.1 - Lobar pneumonia, unspecified organism (5) Transaminitis Code(s): R74.0 - NONSPEC ELEV OF LEVELS OF TRANSAMNS & LACTIC ACID DEHYDRGNSE (6) Hyperkalemia Code(s): E87.5 - HYPERKALEMIA (7) (HFpEF) heart failure with preserved ejection fraction Code(s): I50.30 - UNSPECIFIED DIASTOLIC (CONGESTIVE) HEART FAILURE ASSESSMENT/PLAN: Acute CVA HTN HPL (?) PNA Leukocytosis (?) Component of CHF Transaminitis MRI MRA O2 as needed ABX BD TX PRN Allow Permissive HTN for 24 hours and maintain SBP 160 to 180 Aspiration precautions ABX coverage Follow cultures Dr Quintanilla Critical care time spent in reviewing chart, evaluating patient and formulating plan - 40 minutes.
--- NOTE | 2017-09-07 12:02 | PN ---
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 (short form) - Note 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: cc found to have right fronto parietal lobe infarct on ct head and high blood pressure HPI 82 Year old female history of Hypertension and 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 On September 05 ,She has not been feeling well and had shortness of breadth . Her blood pressure was very high and she was found to have ischemic lesion on right side . Inital presentation,She has no headhace, no dsphagia , no dysarthria or diplopia or weakness. Last night she was extremely agitated and shouting, perhaps due to frontal lobe ischemic lesion. She was given 5 mg of haldol , instead of .5 mg she was suppose to get. She was sleepy this morning. She is noticed to moving left side less. Neurological Examination Sleepy , and not following command( she got Haldol 5 mg this morning ), there is no neck stiffness BP is 174/67 no facial asymmetry, pupils is small She is moving moving less on side, her right sided seems to be moving Detail neurological Exam is not possible CT head showed right sided ischemic lesion at parieto frontal function mri of brain could not be done last night, would suggest to do MRA of Neck and Mri of brain carotid ultrasound was unremarkable Assessment- Right Fronto parietal Ischemic lesion, She seems to be moving less on left upper and lower extremity. It appears that she has delirium secondary to stroke and Intercurrent illness ( CHF and Pneumonia ) Plan- MRI of brain and MRA of neck - Home medication can be resumed - continue statin and add Aspirin - B12,folate tsh can be obtained given her delirium PT, Speech , dvt prophylaxis Neuro check Thanks for consult Jonathon Sotelo MD
--- NOTE | 2017-09-07 12:46 | PN ---
Teaching Attending Note Name of Resident: Daniel Thapa ATTENDING PHYSICIAN STATEMENT Time of evaluation: 9:00 AM I saw and evaluated the patient. I reviewed the resident's note and discussed the case with the resident. I agree with the resident's findings and plan as documented. SUBJECTIVE: Patient seen and examined in the ICU. recently received Haldol. Sleepy, moves and moans to sternal rub but doesn't open eyes or able to follow commands. Unable to do ROS. OBJECTIVE: Vital Signs Period Temp Pulse Resp BP Sys/Espinoza Pulse Ox Last 24 Hr 97.6 F-98.2 F 72-85 16-30 130-184/61-106 95-99 Intake & Output 09/04/17 09/05/17 09/06/17 09/07/17 23:59 23:59 23:59 23:59 Intake Total 292 420 Output Total 500 Balance 292 -80 Weight 124 lb 12.506 oz General: drowsy, only responding to sternal rub or painfull stimuli with movement of extremities, doesnt open eyes, Breathing more comfortably today, tachypneia better than yesterday CVS:S1S2 regular Chest; Decreased breath sounds at bases, poor effort, unable to appreciate rales or wheezing Neuro sleepy, responds and moans to sternal rub, Moves left side, more prominent in LUE than in LLE though spontaneously raises all extremities against gravity, PERRLA, unable to check for sensations, visual field, unable to follow commands, unable to do cerebellar signs Abdomen: soft, ND, positive bowel sounds extremities: no edema Home Medication List Medication Instructions Recorded Confirmed Type Amlodipine Bes/Olmesartan Med 1 each PO DAILY 09/29/13 09/06/17 History [Moose 5-40 mg Tablet] Furosemide 20 mg PO DAILY 09/06/17 09/06/17 History Active Medications Generic Name Dose Route Start Last Admin Trade Name Freq PRN Reason Stop Dose Admin Acetaminophen 1,000 mg 09/06/17 22:42 09/06/17 23:09 Ofirmev Injection - IVPB 1,000 mg Q6H PRN Administration FEVER OR PAIN Albuterol Sulfate 1 amp 09/06/17 18:00 09/07/17 11:10 Ventolin 0.083% Nebulizer Soln - NEB 1 amp QIDR SHAHRAM Administration Atorvastatin Calcium 40 mg 09/06/17 22:00 09/06/17 23:09 Lipitor - PO Not Given HS SHAHRAM Chlorhexidine Gluconate 1 applic 09/06/17 22:00 09/06/17 23:08 Hibiclens For Decolonization - TP 1 applic HS SHAHRAM Administration Heparin Sodium (Porcine) 5,000 unit 09/06/17 15:08 09/07/17 07:57 Heparin - SQ 5,000 unit TID SHAHRAM Administration Sodium Chloride 1,000 mls @ 42 mls/hr 09/06/17 12:45 09/06/17 23:05 Normal Saline - IV 42 mls/hr ASDIR SHAHRAM Administration Azithromycin 500 mg/ Dextrose 250 mls @ 250 mls/hr 09/06/17 14:33 09/07/17 11 :00 IVPB 250 mls/hr DAILY SHAHRAM Administration Ceftriaxone Sodium 1 gm/ 50 mls @ 100 mls/hr 09/07/17 10:00 Dextrose IVPB DAILY SHAHRAM Labetalol HCl 10 mg 09/06/17 21:41 Normodyne Injection - IVPUSH Q3H PRN HEADACHE Metoprolol Tartrate 5 mg 09/07/17 14:00 09/07/17 10:51 Lopressor Injection - IVPUSH 5 mg TID SHAHRAM Administration Mupirocin 1 applic 09/06/17 22:00 09/06/17 23:06 Bactroban Ointment (For Decolonization) - NS 09/11/17 21:59 1 applic BID SHAHRAM Administration Laboratory Results - last 24 hr 09/06/17 09/06/17 09/06/17 12:29 13:00 15:00 WBC RBC Hgb Hct MCV MCH MCHC RDW Plt Count MPV Neutrophils % Lymphocytes % Monocytes % Eosinophils % Basophils % PTT (Actin FS) VBG pH 7.35 POC VBG pCO2 55.5 H POC VBG pO2 17.8 L* Mixed VBG HCO3 29.6 H Sodium Potassium Chloride Carbon Dioxide Anion Gap BUN Creatinine Creat Clearance w eGFR Random Glucose Hemoglobin A1c % Lactic Acid 1.9 Calcium Phosphorus Magnesium Total Bilirubin AST ALT Alkaline Phosphatase B-Natriuretic Peptide Total Protein Albumin Triglycerides Cholesterol Total LDL Cholesterol HDL Cholesterol TSH Urine Color Ltyellow Urine Appearance Clear Urine pH 6.0 Ur Specific [place] 1.012 Urine Protein 2+ H Urine Glucose (UA) Negative Urine Ketones Trace H Urine Blood Negative Urine Nitrite Positive Urine Bilirubin Negative Urine Urobilinogen Negative Ur Leukocyte Esterase Negative Urine WBC (Auto) 4 Urine RBC (Auto) <1 Urine Bacteria Rare Urine Mucus Rare Blood Type Antibody Screen Spec Expiration Date 09/06/17 09/06/17 09/06/17 16:30 16:40 16:52 WBC RBC Hgb Hct MCV MCH MCHC RDW Plt Count MPV Neutrophils % Lymphocytes % Monocytes % Eosinophils % Basophils % PTT (Actin FS) VBG pH POC VBG pCO2 POC VBG pO2 Mixed VBG HCO3 Sodium Potassium Chloride Carbon Dioxide Anion Gap BUN Creatinine Creat Clearance w eGFR Random Glucose Hemoglobin A1c % Lactic Acid Calcium Phosphorus Magnesium 2.0 Total Bilirubin AST ALT Alkaline Phosphatase B-Natriuretic Peptide 3034.93 H Total Protein Albumin Triglycerides Cholesterol Total LDL Cholesterol HDL Cholesterol TSH 1.01 Urine Color Urine Appearance Urine pH Ur Specific [place] Urine Protein Urine Glucose (UA) Urine Ketones Urine Blood Urine Nitrite Urine Bilirubin Urine Urobilinogen Ur Leukocyte Esterase Urine WBC (Auto) Urine RBC (Auto) Urine Bacteria Urine Mucus Blood Type O POSITIVE Antibody Screen Cancelled Spec Expiration Date Cancelled 09/07/17 09/07/17 09/07/17 05:55 05:55 05:55 WBC 25.0 H RBC 4.53 Hgb 13.9 Hct 40.6 MCV 89.7 MCH 30.6 MCHC 34.1 RDW 12.6 Plt Count 257 MPV 9.1 D Neutrophils % 81.1 D Lymphocytes % 4.5 L D Monocytes % 13.7 H Eosinophils % 0.5 D Basophils % 0.2 PTT (Actin FS) 32.5 VBG pH POC VBG pCO2 POC VBG pO2 Mixed VBG HCO3 Sodium 136 Potassium 3.6 D Chloride 99 Carbon Dioxide 28 Anion Gap 9 BUN 11 D Creatinine 0.7 Creat Clearance w eGFR > 60 Random Glucose 164 H Hemoglobin A1c % Lactic Acid Calcium 8.3 L Phosphorus 3.3 Magnesium 1.8 Total Bilirubin 1.3 H D AST 16 D ALT 22 D Alkaline Phosphatase 86 B-Natriuretic Peptide Total Protein 6.2 L Albumin 3.1 L Triglycerides 85 D Cholesterol 130 D Total LDL Cholesterol 68 HDL Cholesterol 55 D TSH Urine Color Urine Appearance Urine pH Ur Specific [place] Urine Protein Urine Glucose (UA) Urine Ketones Urine Blood Urine Nitrite Urine Bilirubin Urine Urobilinogen Ur Leukocyte Esterase Urine WBC (Auto) Urine RBC (Auto) Urine Bacteria Urine Mucus Blood Type Antibody Screen Spec Expiration Date 09/07/17 09/07/17 09/07/17 05:55 05:55 14:02 WBC RBC Hgb Hct MCV MCH MCHC RDW Plt Count MPV Neutrophils % Lymphocytes % Monocytes % Eosinophils % Basophils % PTT (Actin FS) VBG pH POC VBG pCO2 POC VBG pO2 Mixed VBG HCO3 Sodium Potassium Chloride Carbon Dioxide Anion Gap BUN Creatinine Creat Clearance w eGFR Random Glucose Hemoglobin A1c % 6.0 Lactic Acid Calcium Phosphorus Magnesium Total Bilirubin AST ALT Alkaline Phosphatase B-Natriuretic Peptide Total Protein Albumin Triglycerides Cancelled Cholesterol Cancelled Total LDL Cholesterol Cancelled HDL Cholesterol Cancelled TSH 0.55 D Urine Color Urine Appearance Urine pH Ur Specific [place] Urine Protein Urine Glucose (UA) Urine Ketones Urine Blood Urine Nitrite Urine Bilirubin Urine Urobilinogen Ur Leukocyte Esterase Urine WBC (Auto) Urine RBC (Auto) Urine Bacteria Urine Mucus Blood Type Antibody Screen Spec Expiration Date Microbiology 09/06/17 12:29 Blood - Peripheral Venous Blood Culture - Preliminary NO GROWTH OBTAINED AFTER 24 HOURS, INCUBATION TO CONTINUE FOR 4 DAYS. 09/06/17 12:29 Blood - Peripheral Venous Blood Culture - Preliminary NO GROWTH OBTAINED AFTER 24 HOURS, INCUBATION TO CONTINUE FOR 4 DAYS. 09/06/17 16:00 Nasopharyngeal Swab Influenza Types A,B Antigen (TORRES) - Final 09/06/17 16:00 Nasopharyngeal Swab - Final MRI brain - acute right middle cerebral artery infarct involving right temporoparietal region with local mass effect. Acute RIght PICA territory infarction. MRA brain - Absence of flow Right PICA, likely occlusion, additional findings noted Neck MRA - no significant stenosis in carotid bifurcation CT chest - bilateral pleural effusions with consolidation, pulmonary venous congestion, T6 compressive changes ASSESSMENT AND PLAN: 82 yof with PMHx of HTN, HLD, admitted with shortness of breath, likely LLL CAP with sepsis, with component of acute diastolic heart failure, hypertensive urgency and Possible right acute/subacute frontoparietal CVA. 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 Neurosurgery input. Neuro checks q1h, Permissive HTN x 24 hours, then control as tolerated. Lopressor IV noted. ASA/, statin when able to take PO. Speech/swallow eval when awake. Received Haldol for agitation, caution with sedatives unless absolutely indicated. Ceftriaxone/azithromycin, blood cultures. Sputum cultures if available. CT chest noted. ID input appreciated. Lasix held given concerns for rapid BP drop in the setting of acute CVA. strict i/Os and daily weights, lasix prn. Cardiology input appreciated. K normalized, Monitor. DVTPPX per with neurology.neurosurgery. Prognosis poor based on the concerning CVA with likely occlusion of PICA, tenuous respiratory status, concerns for infection and volume overload. Address HCP and overall goals of care. Continue ICU level of care. Total critical care time spent 40 min.
--- NOTE | 2017-09-07 13:10 | PN ---
Physical Exam: SUBJECTIVE: Patient seen and examined at bedside. 24 hr events -Received haldol and ativan for agitation -received in unit, thrashing in bed, restraints applied Today -confused, agitated this AM, improved after ativan -son at bedside -seen by neuro today -pt for MRI/MRA today -carotid doppler study has been done -started on lopressor 5mg IVP q4h PRN for BP control -started on ceftriaxone empirically OBJECTIVE: Vital Signs Period Temp Pulse Resp BP Sys/Espinoza Pulse Ox Last 24 Hr 97.6 F-98.6 F 72-85 16-30 130-225/54-106 94-100 GENERAL: The patient is resting in bed, lethargic HEAD: Normal with no signs of trauma. EYES: decreased pupil size b/l, however reactive to light, EOM appear to be intact NECK: Trachea midline, supple. LUNGS: Breath sounds equal, clear to auscultation bilaterally, no wheezes, no crackles, no accessory muscle use. HEART: Regular rate and rhythm, S1, S2 without murmur, rub or gallop. ABDOMEN: Soft, nontender, nondistended, normoactive bowel sounds EXTREMITIES: 2+ dorsalis pulses, warm, well-perfused, no edema. NEUROLOGICAL: weakness in LUE and LLE, unable to assess sensation as pt unresponsive to verbal commands Laboratory Tests 09/06/17 09/06/17 09/06/17 12:29 12:29 12:29 WBC 28.0 H D Hgb 15.1 Hct 46.4 H Plt Count 270 VBG pH 7.35 POC VBG pCO2 55.5 H POC VBG pO2 17.8 L* Mixed VBG HCO3 29.6 H Potassium 5.9 H D Random Glucose 170 H D B-Natriuretic Peptide 09/06/17 09/07/17 09/07/17 16:52 05:55 05:55 WBC 25.0 H Hgb 13.9 Hct 40.6 Plt Count 257 VBG pH POC VBG pCO2 POC VBG pO2 Mixed VBG HCO3 Potassium Random Glucose 164 H B-Natriuretic Peptide 3034.93 H Active Medications Generic Name Dose Route Start Last Admin Trade Name Freq PRN Reason Stop Dose Admin Acetaminophen 1,000 mg 09/06/17 22:42 09/06/17 23:09 Ofirmev Injection - IVPB 1,000 mg Q6H PRN Administration FEVER OR PAIN Albuterol Sulfate 1 amp 09/06/17 18:00 09/07/17 11:10 Ventolin 0.083% Nebulizer Soln - NEB 1 amp QIDR SHAHRAM Administration Atorvastatin Calcium 40 mg 09/06/17 22:00 09/06/17 23:09 Lipitor - PO Not Given HS SHAHRAM Chlorhexidine Gluconate 1 applic 09/06/17 22:00 09/06/17 23:08 Hibiclens For Decolonization - TP 1 applic HS SHAHRAM Administration Heparin Sodium (Porcine) 5,000 unit 09/06/17 15:08 09/07/17 07:57 Heparin - SQ 5,000 unit TID SHAHRAM Administration Sodium Chloride 1,000 mls @ 42 mls/hr 09/06/17 12:45 09/06/17 23:05 Normal Saline - IV 42 mls/hr ASDIR SHAHRAM Administration Azithromycin 500 mg/ Dextrose 250 mls @ 250 mls/hr 09/06/17 14:33 09/07/17 11 :00 IVPB 250 mls/hr DAILY SHAHRAM Administration Ceftriaxone Sodium 1 gm/ 50 mls @ 100 mls/hr 09/07/17 10:00 Dextrose IVPB DAILY SHAHRAM Labetalol HCl 10 mg 09/06/17 21:41 Normodyne Injection - IVPUSH Q3H PRN HEADACHE Metoprolol Tartrate 5 mg 09/07/17 14:00 09/07/17 10:51 Lopressor Injection - IVPUSH 5 mg TID SHAHRAM Administration Mupirocin 1 applic 09/06/17 22:00 09/06/17 23:06 Bactroban Ointment (For Decolonization) - NS 09/11/17 21:59 1 applic BID SHAHRAM Administration ASSESSMENT/PLAN: 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 Quiñones due to SOB, wheezing and weakness/malaise x 1 day. NEURO #Acute CVA with possible brainstem involvement -CT head: R sided ischemic lesion at parieto-frontal junction -Follow-up MRI/MRA brain, if + may need heparin gtt -Carotid doppler study: moderate calcified plaque in L carotid bulb, otherwise no hemodynamically significant stenosis -Ativan 0.5mg IVP for agitation -On lipitor 40 mg PO HS -Lopressor 5mg IVP TID SHAHRAM, holding parameters systolic < 160mmHg -Permissive HTN, systolic BP in 160's goal. Can go as high as 220/120 for ischemic -Watch for fevers, keep HOB elevated. Aspiration precautions -glycemic control 140-180 sugars -Neuro on case -tele monitoring PULMONARY #CAP -CXR shows bibasilar infiltrates -abx coverage rocephin -f/u cultures -ventolin prn CARDIO #Possible HFPEF exacerbation, incited by PNA -Lasix has been d/c - do not want to drop BP #F/E/N -NS @ 42 while BP low -will follow electrolytes -NPO #PROPHYLAXIS DVT: Hep SQ 5000 TID #Dispo Continued ICU management. -PT -Speech and swallow to assess Visit type - Emergency Visit Emergency Visit: No - New Patient This patient is new to me today: No - Critical Care Critical Care patient: Yes Total Critical Care Time (in minutes): 32 Critical Care Statement: The care of this patient involved high complexity decision making to prevent further life threatening deterioration of the patient 's condition and/or to evaluate & treat vital organ system(s) failure or risk of failure.
[2017-09-07] MEDS: MUPIROCIN 2% TOPICAL OINTMENT FOR DECOLONIZATION NS SCH (14:16)
[2017-09-07] MEDS ORDERED: cefTRIAXone 1 GM/50 ML BAG (PRE-DOCKED) IVPB SCH (15:00)
--- NOTE | 2017-09-07 16:53 | PN ---
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 (short form) - Note 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: Spoke briefly with family who stated that they would like Dr. Pérez to be their neurologist.
[2017-09-07] MEDS: ACETAMINOPHEN 1000 MG/100 ML VIAL (NON FORMULARY) IVPB PRN (17:12)
[2017-09-07] MEDS: CEFTRIAXONE 1 G/50 ML PREMIX 50 ML IVPB SCH (17:12)
--- NOTE | 2017-09-07 17:20 | CONS ---
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 She was at home when she was noted by her son to be short of breath and confused. She had been complaining of shortness of breath and wheezing and headache, which began in the camp head counselor hours prior to admission. The son found her at home in respiratory distress. She was taken to the emergency room where she was noted to have a markedly elevated blood pressure and an elevated white blood cell count. CAT scan of the head shows an acute versus subacute right infarct. Chest x-rays show increased markings at the bases bilaterally. The patient was examined in the emergency room. She denied any recent respiratory tract infection. She denies any chest pain, shortness of breath, cough, or sputum production. No reports of fever or chills. 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 She has not yet received influenza vaccine. She is a nonsmoker. No recent travel. PAST MEDICAL HISTORY: Positive for hypertension, hyperlipidemia, nephrolithiasis. ALLERGIES: No known allergies. MEDICATION: Amlodipine and Lasix. 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 SYSTEMS REVIEW: Neurologic: As per HPI. Cardiac: Negative chest pain or palpitations. Respiratory: As per HPI. Gastrointestinal: Negative vomiting or diarrhea. Genitourinary: Negative for urinary tract infection. LABORATORY DATA: White count 28,000, 85 neutrophils, 4 lymphocytes, 11 monocytes. Hematocrit 46.4, platelet count 270. BUN 17, creatinine 0.8. influenza swab negative. Urinalysis: 4 white cells. PHYSICAL EXAMINATION: General: She is awake and responsive. She is somewhat lethargic. She is in no acute respiratory distress. She is able to answer questions appropriately. Vital signs: Temperature 97.6, blood pressure 184/79, pulse 77 regular, respirations 16 per minute. HEENT: Sclerae anicteric. Cardiovascular: Heart sounds S1, S2. Respiratory: Lungs crepitations at the bases bilaterally. Abdomen: Soft. No tenderness elicited. No mass, rebound, or rigidity. Extremities: Negative for edema. IMPRESSION: 1. Live basilar infiltrates. 2. Possible sepsis secondary to lung source. 3. Status post altered mental status. Rule out toxic metabolic encephalopathy versus stroke. 4. Marked leukocytosis. 5. Hypertensive crisis. 6. Acute versus subacute cerebrovascular accident. Await culture results. Empiric antibiotic coverage for possible community acquired pneumonia with Zithromax and ceftriaxone. Obtain sputum culture, urine legionella antigen. Neurology and cardiology followup. Thank you for the kind referral. ANDREI STRONG M.D. [id number]
--- NOTE | 2017-09-07 17:49 | PN ---
Physical Exam: SUBJECTIVE: Patient seen and examined at bedside. Patient is more altered and very combative compared to what she was like yesterday. Patient was given haldol before I examined her. History was unable to be taken from patient. Son is at bedside. OBJECTIVE: Vital Signs Period Temp Pulse Resp BP Sys/Espinoza Pulse Ox Last 24 Hr 98 F-101.1 F 75-85 16-30 130-191/58-106 95-99 GENERAL: The patient is not awake, alert or oriented. Patient is restless in the hospital bed. EYES: PERRL, extraocular movements intact, sclera anicteric, conjunctiva clear. No ptosis. ENT: Ears normal, nares patent, oropharynx clear without exudates, moist mucous membranes. LUNGS: Breath sounds equal, clear to auscultation bilaterally, no wheezes, mild bibasilar crackles heard on auscultation, no accessory muscle use. HEART: Regular rate and rhythm, S1, S2 without murmur, rub or gallop. ABDOMEN: Soft, nontender, nondistended, normoactive bowel sounds, no guarding, no rebound, no hepatosplenomegaly, no masses. EXTREMITIES: 2+ pulses, warm, well-perfused, no edema. NEUROLOGICAL: Neurological exam unable to be performed due to mental status SKIN: Warm, dry, normal turgor, no rashes or lesions noted Laboratory Results - last 24 hr 09/06/17 09/06/17 09/06/17 15:00 16:30 16:40 WBC RBC Hgb Hct MCV MCH MCHC RDW Plt Count MPV Neutrophils % Lymphocytes % Monocytes % Eosinophils % Basophils % PTT (Actin FS) Sodium Potassium Chloride Carbon Dioxide Anion Gap BUN Creatinine Creat Clearance w eGFR Random Glucose Hemoglobin A1c % Calcium Phosphorus Magnesium 2.0 Total Bilirubin AST ALT Alkaline Phosphatase B-Natriuretic Peptide Total Protein Albumin Triglycerides Cholesterol Total LDL Cholesterol HDL Cholesterol Vitamin B12 Serum Folate TSH 1.01 Ur Leukocyte Esterase Negative Blood Type O POSITIVE Antibody Screen Cancelled Spec Expiration Date Cancelled 09/06/17 09/07/17 09/07/17 16:52 05:55 05:55 WBC 25.0 H RBC 4.53 Hgb 13.9 Hct 40.6 MCV 89.7 MCH 30.6 MCHC 34.1 RDW 12.6 Plt Count 257 MPV 9.1 D Neutrophils % 81.1 D Lymphocytes % 4.5 L D Monocytes % 13.7 H Eosinophils % 0.5 D Basophils % 0.2 PTT (Actin FS) 32.5 Sodium Potassium Chloride Carbon Dioxide Anion Gap BUN Creatinine Creat Clearance w eGFR Random Glucose Hemoglobin A1c % Calcium Phosphorus Magnesium Total Bilirubin AST ALT Alkaline Phosphatase B-Natriuretic Peptide 3034.93 H Total Protein Albumin Triglycerides Cholesterol Total LDL Cholesterol HDL Cholesterol Vitamin B12 Serum Folate TSH Ur Leukocyte Esterase Blood Type Antibody Screen Spec Expiration Date 09/07/17 09/07/17 09/07/17 05:55 05:55 05:55 WBC RBC Hgb Hct MCV MCH MCHC RDW Plt Count MPV Neutrophils % Lymphocytes % Monocytes % Eosinophils % Basophils % PTT (Actin FS) Sodium 136 Potassium 3.6 D Chloride 99 Carbon Dioxide 28 Anion Gap 9 BUN 11 D Creatinine 0.7 Creat Clearance w eGFR > 60 Random Glucose 164 H Hemoglobin A1c % 6.0 Calcium 8.3 L Phosphorus 3.3 Magnesium 1.8 Total Bilirubin 1.3 H D AST 16 D ALT 22 D Alkaline Phosphatase 86 B-Natriuretic Peptide Total Protein 6.2 L Albumin 3.1 L Triglycerides 85 D Cancelled Cholesterol 130 D Cancelled Total LDL Cholesterol 68 Cancelled HDL Cholesterol 55 D Cancelled Vitamin B12 Serum Folate TSH Ur Leukocyte Esterase Blood Type Antibody Screen Spec Expiration Date 09/07/17 14:02 WBC RBC Hgb Hct MCV MCH MCHC RDW Plt Count MPV Neutrophils % Lymphocytes % Monocytes % Eosinophils % Basophils % PTT (Actin FS) Sodium Potassium Chloride Carbon Dioxide Anion Gap BUN Creatinine Creat Clearance w eGFR Random Glucose Hemoglobin A1c % Calcium Phosphorus Magnesium Total Bilirubin AST ALT Alkaline Phosphatase B-Natriuretic Peptide Total Protein Albumin Triglycerides Cholesterol Total LDL Cholesterol HDL Cholesterol Vitamin B12 667 Serum Folate 46 H TSH 0.55 D Ur Leukocyte Esterase Blood Type Antibody Screen Spec Expiration Date Active Medications Generic Name Dose Route Start Last Admin Trade Name Freq PRN Reason Stop Dose Admin Acetaminophen 1,000 mg 09/06/17 22:42 09/07/17 17:12 Ofirmev Injection - IVPB 1,000 mg Q6H PRN Administration FEVER OR PAIN Albuterol Sulfate 1 amp 09/06/17 18:00 09/07/17 11:10 Ventolin 0.083% Nebulizer Soln - NEB 1 amp QIDR SHAHRAM Administration Atorvastatin Calcium 40 mg 09/06/17 22:00 09/06/17 23:09 Lipitor - PO Not Given HS SHAHRAM Chlorhexidine Gluconate 1 applic 09/06/17 22:00 09/06/17 23:08 Hibiclens For Decolonization - TP 1 applic HS SHAHRAM Administration Heparin Sodium (Porcine) 5,000 unit 09/07/17 22:00 Heparin - SQ BID SHAHRAM Sodium Chloride 1,000 mls @ 42 mls/hr 09/06/17 12:45 09/06/17 23:05 Normal Saline - IV 42 mls/hr ASDIR SHAHRAM Administration Azithromycin 500 mg/ Dextrose 250 mls @ 250 mls/hr 09/06/17 14:33 09/07/17 11 :00 IVPB 250 mls/hr DAILY SHAHRAM Administration CEFTRIAXONE 1 G/50 ML PREMIX 50 mls @ 100 mls/hr 09/07/17 15:00 09/07/17 17: 12 Ceftriaxone 1 Gm-D5w Bag IVPB 100 mls/hr DAILY SHAHRAM Administration Labetalol HCl 10 mg 09/06/17 21:41 Normodyne Injection - IVPUSH Q3H PRN HEADACHE Metoprolol Tartrate 5 mg 09/07/17 14:00 09/07/17 16:59 Lopressor Injection - IVPUSH Not Given TID SHAHRAM Mupirocin 1 applic 09/06/17 22:00 09/07/17 14:16 Bactroban Ointment (For Decolonization) - NS 09/11/17 21:59 1 applic BID SHAHRAM Administration IMAGING: MRI BRAIN WITHOUT CONTRAST: 1. Acute right middle cerebral artery territory infarction involving the temporoparietal lobes extending into the posterior insular cortex, with local mass effects as described above. No midline shift or herniation pattern. 2. Acute right PICA territory infarction with local sulcal effacement and partial effacement of the fourth ventricle outflow tract. No cerebellar herniation pattern or hydrocephalus at this time. 3. Generalized, age -related volume loss and moderately severe chronic microvascular ischemic changes with clinical coronary infarct as described above. Focus of hemosiderin in the left cerebellum reflecting the sequela of prior petechial microhemorrhages, likely secondary to hypertension. MRA [place] - 1. Absence of flow in the right posterior-inferior cerebral artery which is most likely due to occlusion given the large right cerebellar infarct. 2. Mild luminal narrowing in the M1 and M2 segments of the right MCA with attenuated flow in the inferior M2 division. No occlusion in the central arteries of the [place]. 3. 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 4. Attenuated flow in the P2 and P3 segments of the right [employer] may be secondary to slow flow. ASSESSMENT/PLAN: 82 year old female with a past medical history of hypertension and hyperlipidemia admitted to the ICU for sepsis 2/2 pneumonia, hypertensive emergency, and ischemic stroke. #Ischemic Stroke: progressed further -MRI brain shows new ischemic MCA infarct on right -Continue asa 81mg QD -continue atorvastatin 40mg -appreciate neuro recommendations Dr. Pérez -Appreciate ICU recommendations -NPO #Sepsis likely 2/2 Pneumonia: -vanco given in ED -ceftriaxone/azithromycin coverage QD -Fluid resuscitation -lasix 40mg IV QD #Hypertensive Emergency: BP was 225/83 lower now -Patient was given labetalol in ED and pressure decreased to 144/54 -continue labetalol 10mg Q3 PRN if BP > 200/120 -lopressor 5mg IV push TID given BP > 160 -f/u echocardiogram #Hyperkalemia: potassium was 5.9 on admission, improved -BMP in AM #FEN: -no standing fluids -replete lytes as necessary -NPO #Prophylaxis -Heparin 5000 Subq TID #Disposition -Admit to ICU for monitoring, full code until status is reassessed Visit type - Emergency Visit Emergency Visit: No - New Patient This patient is new to me today: No - Critical Care Critical Care patient: No
--- NOTE | 2017-09-07 18:46 | CONSULT ---
Consult - text type - Consultation Consultation Note: NEUROLOGY CONSULTATION is greatly appreciated: Events reviewed and discussed with Drs. Sotelo and Socorro. 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 Sunday c/o SOB and became increasingly dyspneic and confused. In ER BP awas > 200 systolic. Was agitated in the ER but CT was normal except age-related atrophy and microvascular changes. Left sided visual loss mentioned to her son in the ER. This AM was found, after sedation, poorly responsive (but following simple commands), resting with eyes closed, pinpoint pupils and left-sided weakness. MRI/MRA (reviewed): Large right MCA-territory infarct, right cerebellar acute infarct, Right PICA and right MCA occlusions. Underlying atrophy and diffuse, chronic, microvascular white matter changes. EXAM (18:30): Lethargic but arousable to sternal rub and pinch. Grimaces and withdraws (R>>L). No response to visual threat. [id number]. Left exotropia. Decreased gag. Feels pinch throughout. IMP: Right MCA-territory infarct which (classically) can present with an acute confusional state. Also, acute PICA-territory CVA with acute right cerebellar CVA and probable brainstem involvement. Underlying presentation with progressive dyspnea NOT explained by strokes but does suggest possible cardioembolic etiology. SUGGEST: R/O CA as per Cardiology (Dr. Quiñones's consultation read and appreciated). Echocardiogram/telemetry. Heparin if cardioembolic etiology is suspected. Hematology consultation (R/O hypercoagulable state). NPO. Bedside PT. Prognosis guarded. Thank you very much, Suman Pérez MD
[2017-09-07] MEDS: SODIUM CHLORIDE 1,000 ML IV SCH (19:00)
[2017-09-08] MEDS: MUPIROCIN 2% TOPICAL OINTMENT FOR DECOLONIZATION NS SCH ×3 (00:18→23:14)
[2017-09-08] MEDS: HEPARIN NA (PORCINE) 5,000 UNITS/ML 1ML VIAL SQ SCH ×3 (00:18→23:13)
[2017-09-08] MEDS: CHLORHEXIDINE GLUCONATE 4% CLEANSER FOR DECOLONIZATION TP SCH ×2 (00:18→23:14)
[2017-09-08] MEDS: METOPROLOL TARTRATE 5 MG/5 ML VIAL IVPUSH SCH ×5 (00:19→23:12)
[2017-09-08] MEDS: ATORVASTATIN CA 40 MG TABLET (FP) PO SCH ×2 (00:19→23:14)
[2017-09-08 06:18] LABS: BASO % 0.1 % (0-2.0); EOS % 0.2 % (0-4.5); HEMATOCRIT 37.2 % (32.4-45.2); LYMPH % 3.5 % (8-40); MCH 30.8 pg (25.7-33.7); MEAN CELL VOLUME 87.9 fl (80-96); MEAN PLT VOLUME 8.9 fl (7.5-11.1); MONO % 11.1 % (3.8-10.2); NEUT % 85.1 % (42.8-82.8); PLATELET COUNT 208 K/MM3 (134-434); RBC 4.23 M/mm3 (3.60-5.2); RDW 12.9 % (11.6-15.6); WHITE BLOOD COUNT 19.3 K/mm3 (4.0-10.0)
[2017-09-08 06:25] LABS: INR 1.19 (0.82-1.09); PROTHROMBIN TIME (PATIENT) 13.5 SEC (9.98-11.88)
[2017-09-08 07:05] LABS: ANION GAP 11 (8-16); BLOOD UREA NITROGEN 13 mg/dL (7-18); CALCIUM 7.6 mg/dL (8.5-10.1); CHLORIDE 101 mmol/L (98-107); CO2 26 mmol/L (21-32); CREATININE 0.7 mg/dL (0.55-1.02); GLUCOSE,RANDOM 143 mg/dL (74-106); MAGNESIUM 1.9 mg/dL (1.8-2.4); PHOSPHOROUS 3.4 mg/dL (2.5-4.9); POTASSIUM 3.2 mmol/L (3.5-5.1); SODIUM 138 mmol/L (136-145)
[2017-09-08] MEDS: SODIUM CHLORIDE 1,000 ML IV SCH (09:40)
[2017-09-08] MEDS ORDERED: PT OWN MED DRAWER 7, Y5N ONE ×2 (09:44→15:42)
[2017-09-08] MEDS: CEFTRIAXONE 1 G/50 ML PREMIX 50 ML IVPB SCH (09:51)
[2017-09-08] MEDS ORDERED: cefTRIAXone 1 GM/50 ML BAG (PRE-DOCKED) IVPB SCH (10:00)
[2017-09-08] MEDS: AZITHROMYCIN IVPB 500 MG in DEXTROSE 5%-WATER - 250 ML IVPB SCH (10:01)
--- NOTE | 2017-09-08 10:04 | PN ---
Physical Exam: SUBJECTIVE: Patient seen and examined. Mental status improving. Less agitated. Conversational. AAOx2 and at times AAOx3, but sleepy. No sedation last night. 1 episode of VT x8 beats on tele. OBJECTIVE: Vital Signs Period Temp Pulse Resp BP Sys/Espinoza Pulse Ox Last 24 Hr 98 F-101.1 F 72-84 18-27 107-202/46-106 84-99 GEN: AAOx2, at times AAOx3. Conversational but sleepy. Follows commands. HEENT: PERRLA CV: S1, S2, RRR LUNG: Anterior lungs sound clear ABD: Soft, NT, ND MSK: No edema, no erythema NEURO: Follows commands. L hand director immunology 4/5, L wrist flexion 3/5, L elbow flexion 3 /5. L knee flexion 3/5. L dorsiflexion 3/5. R sided 5/5 all extremities. Unable to assess cerebellar function Active Medications Generic Name Dose Route Start Last Admin Trade Name Freq PRN Reason Stop Dose Admin Acetaminophen 1,000 mg 09/06/17 22:42 09/07/17 17:12 Ofirmev Injection - IVPB 1,000 mg Q6H PRN Administration FEVER OR PAIN Albuterol Sulfate 1 amp 09/06/17 18:00 09/07/17 17:15 Ventolin 0.083% Nebulizer Soln - NEB 1 amp QIDR SHAHRAM Administration Atorvastatin Calcium 40 mg 09/06/17 22:00 09/08/17 00:19 Lipitor - PO Not Given HS SHAHRAM Chlorhexidine Gluconate 1 applic 09/06/17 22:00 09/08/17 00:18 Hibiclens For Decolonization - TP 1 applic HS SHAHRAM Administration Heparin Sodium (Porcine) 5,000 unit 09/07/17 22:00 09/08/17 00:18 Heparin - SQ 5,000 unit BID SHAHRAM Administration Sodium Chloride 1,000 mls @ 42 mls/hr 09/06/17 12:45 09/08/17 09:40 Normal Saline - IV 42 mls/hr ASDIR SHAHRAM Administration Azithromycin 500 mg/ Dextrose 250 mls @ 250 mls/hr 09/06/17 14:33 09/07/17 11 :00 IVPB 250 mls/hr DAILY SHAHRAM Administration CEFTRIAXONE 1 G/50 ML PREMIX 50 mls @ 100 mls/hr 09/07/17 15:00 09/07/17 17: 12 Ceftriaxone 1 Gm-D5w Bag IVPB 100 mls/hr DAILY SHAHRAM Administration Labetalol HCl 10 mg 09/06/17 21:41 Normodyne Injection - IVPUSH Q3H PRN HEADACHE Metoprolol Tartrate 5 mg 09/07/17 14:00 09/08/17 09:46 Lopressor Injection - IVPUSH 5 mg TID SHAHRAM Administration Mupirocin 1 applic 09/06/17 22:00 09/08/17 00:18 Bactroban Ointment (For Decolonization) - NS 09/11/17 21:59 1 applic BID SHAHRAM Administration ASSESSMENT/PLAN: 82 year old female with a past medical history of hypertension admitted to the ICU for hypertensive emergency, ischemic stroke, sepsis 2/2 pneumonia. # Acute R CVA - Large R MCA + R PICA occlusions - Likely embolic. No thrombus on TTE but cannot r/o. No Afib on monitor but cannot r/o paroxysmal. Presented in hypertensive emergency on admission, but no bleed on CT. - Has sustained residual L sided weakness and feels "off balance" as per nurse. Mental status slowly improving. Avoid sedatives at this time. Permissive HTN was kept for the first 24 hours. Will start gradual BP control today. Labetalol 10 Q3 parameters changed to SBP >170. Continue Hydralazine 5 TID. Needs ASA + statin when patient can take PO # HTN Emergency - Tighter BP Control. Goal 170s/90s. Continue scheduled Hydralazine 5 TID + PRN Labetalol 10 Q3 SBP >170 # Sepsis 2/2 PNA - Currently on Ceftriaxone 1 QD + Azithro 500mg QD, still spiking fevers though WBC trends down. # Hypokalemia - Was hyperkalemia, but corrected, now hypokalemia. Replete K+ w/ IV KCl 10meq x3 # FEN - No IVF, replete K+, NPO due to mental status, as mental status improves can advance diet. Would like official S/S due to stroke. # PPx - HSQ TID, no GI, PT on hold # Dispo - ICU, start controlling BP, continue abx, await for mental status to improve. Overall poor prognosis d/w Dr Julio C Reno MD - Resident PGY1 Internal Medicine Visit type - Emergency Visit Emergency Visit: No - New Patient This patient is new to me today: No - Critical Care Critical Care patient: No - Discharge Referral Referred to [facility] No
--- NOTE | 2017-09-08 10:18 | PN ---
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 (short form) - Note 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: PULMONARY/CCM Pt seen and examined in the ICU. Remains confused and altered. Febrile overnight. Blood pressures remain high. Last Vital Signs Temp Pulse Resp BP Pulse Ox 97.3 F L 80 25 H 215/79 100 09/08/17 10:16 09/08/17 10:07 09/08/17 10:07 09/08/17 10:07 09/08/17 10:08 Intake & Output 09/05/17 09/06/17 09/07/17 09/08/17 23:59 23:59 23:59 23:59 Intake Total 292 580 336 Output Total 500 Balance 292 80 336 Weight 124 lb 12.506 oz 126 lb 9.6 oz Gen: confused, mildly tachypneic Heart: RRR Lung: scattered rhonchi Abd: soft, nontender Ext: no edema CBC, BMP 09/08/17 05:05 09/08/17 05:05 Active Medications Acetaminophen (Ofirmev Injection -) 1,000 mg IVPB Q6H PRN PRN Reason: FEVER OR PAIN Last Admin: 09/07/17 17:12 Dose: 1,000 mg Albuterol Sulfate (Ventolin 0.083% Nebulizer Soln -) 1 amp NEB QIDR [facility] Last Admin: 09/07/17 17:15 Dose: 1 amp Atorvastatin Calcium (Lipitor -) 40 mg PO HS [facility] Last Admin: 09/08/17 00:19 Dose: Not Given Chlorhexidine Gluconate (Hibiclens For Decolonization -) 1 applic TP HS [facility] Last Admin: 09/08/17 00:18 Dose: 1 applic Heparin Sodium (Porcine) (Heparin -) 5,000 unit SQ BID [facility] Last Admin: 09/08/17 10:01 Dose: 5,000 unit Sodium Chloride (Normal Saline -) 1,000 mls @ 42 mls/hr IV ASDIR [facility] Last Admin: 09/08/17 09:40 Dose: 42 mls/hr Azithromycin 500 mg/ Dextrose 250 mls @ 250 mls/hr IVPB DAILY [facility] Last Admin: 09/08/17 10:01 Dose: 250 mls/hr CEFTRIAXONE 1 G/50 ML PREMIX (Ceftriaxone 1 Gm-D5w Bag) 50 mls @ 100 mls/hr IVPB DAILY [facility] Last Admin: 09/08/17 09:51 Dose: 100 mls/hr Labetalol HCl (Normodyne Injection -) 10 mg IVPUSH Q3H PRN PRN Reason: HEADACHE Last Admin: 09/08/17 10:03 Dose: 10 mg Metoprolol Tartrate (Lopressor Injection -) 5 mg IVPUSH TID [facility] Last Admin: 09/08/17 09:46 Dose: 5 mg Mupirocin (Bactroban Ointment (For Decolonization) -) 1 applic NS BID [facility] Stop: 09/11/17 21:59 Last Admin: 09/08/17 10:02 Dose: 1 applic A/P Altered Mental Status Acute/Subacute CVA Pneumonia Bilateral Pleural Effusions HTN Hyperlipidemia - continue antibiotics - f/u cultures - urine antigens - IVF - replete lytes - monitor fever curve, WBC trend - BP control - PO as tolerated - aspiration precautions - DVT prophylaxis - continue ICU monitoring
--- NOTE | 2017-09-08 10:23 | PN ---
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 (short form) - Note 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: awake responsive cynthia vest wants something to drink Vital Signs Period Temp Pulse Resp BP Sys/Espinoza Pulse Ox Last 24 Hr 97.3 F-101.1 F 72-84 18-27 107-215/46-88 84-100 cor-rrr lungs decreased bs at bases abd soft,nt ext no edema CBC, BMP 09/08/17 05:05 09/08/17 05:05 Microbiology 09/06/17 15:00 Urine - Urine Clean Catch Urine Culture - Final NO GROWTH OBTAINED 09/06/17 12:29 Blood - Peripheral Venous Blood Culture - Preliminary NO GROWTH OBTAINED AFTER 24 HOURS, INCUBATION TO CONTINUE FOR 4 DAYS. 09/06/17 12:29 Blood - Peripheral Venous Blood Culture - Preliminary NO GROWTH OBTAINED AFTER 24 HOURS, INCUBATION TO CONTINUE FOR 4 DAYS. 09/06/17 16:00 Nasopharyngeal Swab Influenza Types A,B Antigen (TORRES) - Final 09/06/17 16:00 Nasopharyngeal Swab - Final cxray- less congestive changes a/p s/p CVA possible pneumonia- febrile overnight continue rocephin/zithromax f/u cultures f/u legionella urinary antigen
[2017-09-08] MEDS ORDERED: POTASSIUM CHLORIDE TABS 20 MEQ TABLET.ER (FP) PO ONE (10:25)
[2017-09-08] MEDS ORDERED: ONDANSETRON 4 MG/2 ML VIAL ONE (10:47)
[2017-09-08] MEDS ORDERED: LABETALOL HCL 5 MG/1 ML (100MG/20 ML VIAL) IVPUSH PRN (10:55)
[2017-09-08] MEDS: ACETAMINOPHEN 1000 MG/100 ML VIAL (NON FORMULARY) IVPB PRN ×2 (10:58→16:04)
[2017-09-08] MEDS ORDERED: ONDANSETRON 4 MG/2 ML VIAL IVPUSH ONE (11:00)
[2017-09-08] MEDS: ALBUTEROL SO4 0.083% IH SOL 2.5 MG/3 ML VIAL.NEB. NEB SCH ×3 (11:46→23:10)
--- NOTE | 2017-09-08 13:41 | PN ---
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 Workup disclosed elevated WBC count, probable LLL infiltrate and congestive changes. MRI of the brain revealed multiple CVAs. Known case of hypertension and hypercholesterolemia, she is arousable and appears oriented regarding where she is and recognised her son and me. No SOB or chest pain reported. Active Medications Generic Name Dose Route Start Last Admin Trade Name Freq PRN Reason Stop Dose Admin Acetaminophen 1,000 mg 09/06/17 22:42 09/08/17 10:58 Ofirmev Injection - IVPB 1,000 mg Q6H PRN Administration FEVER OR PAIN Albuterol Sulfate 1 amp 09/06/17 18:00 09/08/17 11:46 Ventolin 0.083% Nebulizer Soln - NEB 1 amp QIDR SHAHRAM Administration Atorvastatin Calcium 40 mg 09/06/17 22:00 09/08/17 00:19 Lipitor - PO Not Given HS SHAHRAM Chlorhexidine Gluconate 1 applic 09/06/17 22:00 09/08/17 00:18 Hibiclens For Decolonization - TP 1 applic HS SHAHRAM Administration Heparin Sodium (Porcine) 5,000 unit 09/07/17 22:00 09/08/17 10:01 Heparin - SQ 5,000 unit BID SHAHRAM Administration Sodium Chloride 1,000 mls @ 42 mls/hr 09/06/17 12:45 09/08/17 09:40 Normal Saline - IV 42 mls/hr ASDIR SHAHRAM Administration Azithromycin 500 mg/ Dextrose 250 mls @ 250 mls/hr 09/06/17 14:33 09/08/17 10 :01 IVPB 250 mls/hr DAILY SHAHRAM Administration CEFTRIAXONE 1 G/50 ML PREMIX 50 mls @ 100 mls/hr 09/07/17 15:00 09/08/17 09: 51 Ceftriaxone 1 Gm-D5w Bag IVPB 100 mls/hr DAILY SHAHRAM Administration Potassium Chloride 10 meq in 100 mls @ 100 mls/hr 09/08/17 10:30 Potassium Chloride 10 Meq Premix Ivpb - IVPB 09/08/17 13:29 Q60M SHAHRAM Labetalol HCl 10 mg 09/08/17 10:55 Normodyne Injection - IVPUSH Q3H PRN HEADACHE Metoprolol Tartrate 5 mg 09/08/17 10:57 Lopressor Injection - IVPUSH TID [facility] Mupirocin 1 applic 09/06/17 22:00 09/08/17 10:02 Bactroban Ointment (For Decolonization) - NS 09/11/17 21:59 1 applic BID [facility] Administration 82 year old female is sleeping but arousable. No pallor or cyanosis. she is afebrile. Last Vital Signs Temp Pulse Resp BP Pulse Ox 97.3 F L 75 22 184/85 100 09/08/17 10:16 09/08/17 10:22 09/08/17 10:22 09/08/17 10:22 09/08/17 10:08 NECK: Supple, no JVD, No HJR, carotids are 2+, no bruits are heard. HEART: PMI is in 5th ICS, no heaves or thrills. S1 and S2 are normal. No murmur or gallops were heard. LUNGS: Clear on auscultation. ABDOMEN: Soft, nontender, no organomegaly or palpable masses felt. EXTREMITIES: No calf tenderness or dependent edema. SAUSAGE STUFFER: Arousable and answers questions appropriately, moves all extremities and no focal weakness seen. CBC, BMP 09/08/17 05:05 09/08/17 05:05 IMPRESSION: 1. Accelerated Hypertension, poorly controlled. 2. Multiple CVAs. 3. Probable LLL pneumonia. 4. Hypokalemia.. 5. Hypercholesterolemia. 6. History of VPBs. 7. Recent LV failure. Recommendations: 1. Control of BP. 2. If she able to swallow add ARB. 3. Correction of hypokalemia in progress. 4. Increase dose of Beta blockers, if BP remains elevated. 5. Spoke to son at length regarding status. Prognosis: Critical. Time spent 45 MIns. Problem List - Problems (1) Sepsis Code(s): A41.9 - SEPSIS, UNSPECIFIED ORGANISM (2) Accelerated hypertension Code(s): I10 - ESSENTIAL (PRIMARY) HYPERTENSION (3) Ventricular premature beats, contractions, or systoles Code(s): I49.3 - VENTRICULAR PREMATURE DEPOLARIZATION (4) Altered mental status Code(s): R41.82 - ALTERED MENTAL STATUS, UNSPECIFIED Qualifiers: Altered mental status type: transient alteration of awareness Qualified Code(s): R40.4 - Transient alteration of awareness (5) Pneumonia Code(s): J18.9 - PNEUMONIA, UNSPECIFIED ORGANISM Qualifiers: Pneumonia type: due to unspecified organism Laterality: left Lung location: lower lobe of lung Qualified Code(s): J18.1 - Lobar pneumonia, unspecified organism (6) Left ventricular failure Code(s): I50.1 - LEFT VENTRICULAR FAILURE, UNSPECIFIED
--- NOTE | 2017-09-08 13:41 | PN ---
Teaching Attending Note Name of Resident: Patrick Reno ATTENDING PHYSICIAN STATEMENT Time of evaluation: 10:05 AM I saw and evaluated the patient. I reviewed the resident's note and discussed the case with the resident. I agree with the resident's findings and plan as documented. SUBJECTIVE: Patient seen and examined, more interactive today, converses, follows commands, intermittent opens eyes per will. No complaints. OBJECTIVE: Vital Signs Period Temp Pulse Resp BP Sys/Espinoza Pulse Ox Last 24 Hr 97.3 F-101.1 F 72-84 18-27 107-215/46-88 84-100 Intake & Output 09/05/17 09/06/17 09/07/17 09/08/17 23:59 23:59 23:59 23:59 Intake Total 292 580 336 Output Total 500 600 Balance 292 80 -264 Weight 124 lb 12.506 oz 126 lb 9.6 oz General: lying in bed in no acute distress, tachypneia better today, no use of acessory muscles of respiration. CvS:S1S2 regular Chest: poor effort, limited exam, few basilar rales Abdomen: soft, NT, Nd, positive bowel sounds extremities: no edema Neuro; Eyes closed, opens at will, responds to commands and words, facial symmetry, LUE/LLE weaker than right, able to lift against gravity, unable to check for sensations, cerebellar signs or visual wilhelm given limited co= operation, oriented to self, knows is in the hospital, but not time. Home Medication List Medication Instructions Recorded Confirmed Type Amlodipine Bes/Olmesartan Med 1 each PO DAILY 09/29/13 09/06/17 History [Moose 5-40 mg Tablet] Furosemide 20 mg PO DAILY 09/06/17 09/06/17 History Active Medications Generic Name Dose Route Start Last Admin Trade Name Freq PRN Reason Stop Dose Admin Acetaminophen 1,000 mg 09/06/17 22:42 09/08/17 10:58 Ofirmev Injection - IVPB 1,000 mg Q6H PRN Administration FEVER OR PAIN Albuterol Sulfate 1 amp 09/06/17 18:00 09/08/17 11:46 Ventolin 0.083% Nebulizer Soln - NEB 1 amp QIDR SHAHRAM Administration Atorvastatin Calcium 40 mg 09/06/17 22:00 09/08/17 00:19 Lipitor - PO Not Given HS SHAHRAM Chlorhexidine Gluconate 1 applic 09/06/17 22:00 09/08/17 00:18 Hibiclens For Decolonization - TP 1 applic HS SHAHRAM Administration Heparin Sodium (Porcine) 5,000 unit 09/07/17 22:00 09/08/17 10:01 Heparin - SQ 5,000 unit BID SHAHRAM Administration Sodium Chloride 1,000 mls @ 42 mls/hr 09/06/17 12:45 09/08/17 09:40 Normal Saline - IV 42 mls/hr ASDIR SHAHRAM Administration Azithromycin 500 mg/ Dextrose 250 mls @ 250 mls/hr 09/06/17 14:33 09/08/17 10 :01 IVPB 250 mls/hr DAILY SHAHRAM Administration CEFTRIAXONE 1 G/50 ML PREMIX 50 mls @ 100 mls/hr 09/07/17 15:00 09/08/17 09: 51 Ceftriaxone 1 Gm-D5w Bag IVPB 100 mls/hr DAILY SHAHRAM Administration Labetalol HCl 10 mg 09/08/17 10:55 Normodyne Injection - IVPUSH Q3H PRN HEADACHE Metoprolol Tartrate 5 mg 09/08/17 10:57 Lopressor Injection - IVPUSH TID SHAHRAM Mupirocin 1 applic 09/06/17 22:00 09/08/17 10:02 Bactroban Ointment (For Decolonization) - NS 09/11/17 21:59 1 applic BID SHAHRAM Administration Laboratory Results - last 24 hr 09/06/17 09/06/17 09/07/17 12:17 16:14 14:02 WBC RBC Hgb Hct MCV MCH MCHC RDW Plt Count MPV Neutrophils % Lymphocytes % Monocytes % Eosinophils % Basophils % PT with INR INR PTT (Actin FS) Sodium Potassium Chloride Carbon Dioxide Anion Gap BUN Creatinine POC Glucometer [phone] Random Glucose Calcium Phosphorus Magnesium Vitamin B12 667 Serum Folate 46 H TSH 0.55 D 09/08/17 09/08/17 09/08/17 05:05 05:05 05:05 WBC 19.3 H RBC 4.23 Hgb 13.0 Hct 37.2 MCV 87.9 MCH 30.8 MCHC 35.0 RDW 12.9 Plt Count 208 MPV 8.9 Neutrophils % 85.1 H Lymphocytes % 3.5 L D Monocytes % 11.1 H Eosinophils % 0.2 Basophils % 0.1 PT with INR 13.50 H INR 1.19 H PTT (Actin FS) 25.0 L Sodium 138 Potassium 3.2 L Chloride 101 Carbon Dioxide 26 Anion Gap 11 BUN 13 Creatinine 0.7 POC Glucometer Random Glucose 143 H Calcium 7.6 L Phosphorus 3.4 Magnesium 1.9 Vitamin B12 Serum Folate TSH MRI brain/MRA head and neck noted. Microbiology 09/06/17 15:00 Urine - Urine Clean Catch Urine Culture - Final NO GROWTH OBTAINED 09/06/17 12:29 Blood - Peripheral Venous Blood Culture - Preliminary NO GROWTH OBTAINED AFTER 24 HOURS, INCUBATION TO CONTINUE FOR 4 DAYS. 09/06/17 12:29 Blood - Peripheral Venous Blood Culture - Preliminary NO GROWTH OBTAINED AFTER 24 HOURS, INCUBATION TO CONTINUE FOR 4 DAYS. 09/06/17 16:00 Nasopharyngeal Swab Influenza Types A,B Antigen (TORRES) - Final 09/06/17 16:00 Nasopharyngeal Swab - Final ASSESSMENT AND PLAN: 82 yof with PMHx of HTN, HLD, admitted with shortness of breath, likely LLL CAP with sepsis, with component of acute diastolic heart failure, hypertensive urgency and Possible right acute/subacute frontoparietal CVA. 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 attempt slow BP control now, 15-20% drop. Hydralazine, and labetalol prn. ASA/, statin when able to take PO. Speech/swallow eval as awake and more co-operative now. Caution with sedatives unless absolutely indicated. Ceftriaxone/azithromycin day 3, blood cultures. Sputum cultures if available. CT chest noted. ID input appreciated. Lasix held given concerns for rapid BP drop in the setting of acute CVA. strict i/Os and daily weights, lasix prn. Cardiology input appreciated. Monitor lytes, follow up with cardiology, beta lyndsey as able. K normalized, Monitor. DVTPPX per with neurology.neurosurgery. Prognosis poor based on the concerning CVA with likely occlusion of PICA, tenuous respiratory status, concerns for infection and volume overload. Address HCP and overall goals of care. Continue ICU level of care. Total critical care time spent 35 min.
[2017-09-08] MEDS: KCL 10 MEQ IVPB 10 MEQ/100 ML INFUS.BAG IVPB SCH ×3 (13:48→16:27)
--- NOTE | 2017-09-08 15:33 | PN ---
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 (short form) - Note 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: 82 Year old female history of Hypertension and 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 On September 05 ,She has not been feeling well and had shortness of breadth . Her blood pressure was very high and she was found to have ischemic lesion on right side . Later she had mri of brain and had right mca ischemic stroke and right cerebellar infarct ( Involvement of PICA) She seems to be less agitated but as per her son she is quite stubborn and do not participate in examination and providing history Neurological Examination Alert and follow command, she was able to tell whta month is this and how old is she no facial asymmetry, pupils is small She is moving much better on left side and left upper exremity is grade 5- and left lower extremity is almost normal There seems to be neglect of left side and she is neglecting double simultaneous stimuli testing on left side mri of brain and mra of brain was reviewed carotid ultrasound was unremarkable Assessment- Right mca stroke and right cerebellar stroke , carotid ultraosund wa snormal, possibly she had embolic episode from cardiac source 2.Pneumonia and CHF Plan- - continue statin and add Aspirin - No source of thromboembolism has been identified, advise to hold anticoagulation at this time, given she has large stroke PT, Speech , dvt prophylaxis Please call if any question Neuro check Thanks for consult Jonathon Sotelo MD
[2017-09-08] MEDS ORDERED: ONDANSETRON 4 MG/2 ML VIAL IVPUSH PRN (16:01)
[2017-09-08] MEDS ORDERED: ACETAMINOPHEN 1000 MG/100 ML VIAL (NON FORMULARY) IVPB ONE (16:05)
[2017-09-08] MEDS ORDERED: ACETAMINOPHEN 1000 MG/100 ML VIAL (NON FORMULARY) IVPB PRN (16:18)
[2017-09-08] MEDS ORDERED: MECLIZINE HCL 12.5 MG TABLET PO ONE (20:57)
--- NOTE | 2017-09-08 21:02 | EKG ---
Test Reason : Blood Pressure : / mmHG Vent. Rate : 091 BPM Atrial Rate : 091 BPM P-R Int : 138 ms QRS Dur : 082 ms QT Int : 384 ms P-R-T Axes : 068 055 033 degrees QTc Int : 472 ms POOR DATA QUALITY, INTERPRETATION MAY BE ADVERSELY AFFECTED SINUS RHYTHM WITH OCCASIONAL PREMATURE VENTRICULAR COMPLEXES POSSIBLE PROLONGED QT ABNORMAL ECG WHEN COMPARED WITH ECG OF 06-SEP-2017 12:31, NO SIGNIFICANT CHANGE WAS FOUND Confirmed by KIRSTIE WEBSTER MD ([id number]) on 09/08/2017 9:02:18 PM Referred By: Confirmed By:KIRSTIE WEBSTER MD
[2017-09-09] MEDS: SODIUM CHLORIDE 1,000 ML IV SCH (03:34)
[2017-09-09] MEDS: ONDANSETRON 4 MG/2 ML VIAL IVPUSH PRN ×2 (03:35→21:33)
[2017-09-09 05:53] LABS: BASO % 0.3 % (0-2.0); EOS % 0.8 % (0-4.5); HEMATOCRIT 41.8 % (32.4-45.2); HEMOGLOBIN 14.2 GM/dL (10.7-15.3); LYMPH % 3.5 % (8-40); MCH 30.2 pg (25.7-33.7); MCHC 34.1 g/dl (32.0-36.0); MEAN CELL VOLUME 88.6 fl (80-96); MEAN PLT VOLUME 8.7 fl (7.5-11.1); NEUT % 83.4 % (42.8-82.8); PLATELET COUNT 261 K/MM3 (134-434); RBC 4.72 M/mm3 (3.60-5.2); RDW 12.4 % (11.6-15.6); WHITE BLOOD COUNT 21.5 K/mm3 (4.0-10.0)
[2017-09-09 06:26] LABS: ALBUMIN 2.8 g/dl (3.4-5.0); ALK PHOS 77 U/L (45-117); ANION GAP 10 (8-16); BILIRUBIN,TOTAL 0.9 mg/dL (0.2-1.0); BLOOD UREA NITROGEN 13 mg/dL (7-18); CALCIUM 8.7 mg/dL (8.5-10.1); CHLORIDE 99 mmol/L (98-107); CO2 31 mmol/L (21-32); CREATININE 0.6 mg/dL (0.55-1.02); GLUCOSE,RANDOM 112 mg/dL (74-106); MAGNESIUM 1.9 mg/dL (1.8-2.4); PHOSPHOROUS 2.6 mg/dL (2.5-4.9); POTASSIUM 3.6 mmol/L (3.5-5.1); SGOT/AST 22 U/L (15-37); SGPT/ALT 23 U/L (12-78); SODIUM 140 mmol/L (136-145); TOT PROT 6.3 g/dl (6.4-8.2)
[2017-09-09] MEDS: ALBUTEROL SO4 0.083% IH SOL 2.5 MG/3 ML VIAL.NEB. NEB SCH ×4 (06:50→23:15)
--- NOTE | 2017-09-09 09:04 | PN ---
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 (short form) - Note 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: oob in chair brushed her teeth oriented to hospital,2017, trump "Dr Quiñones is my doctor" no chest pain or SOB Vital Signs Period Temp Pulse Resp BP Sys/Espinoza Pulse Ox Last 24 Hr 97.3 F-98.2 F 69-91 17-26 144-215/60-95 98-100 cor-rrr lungs decreased bs at bases abd soft,nt ext no edema cxray increased bibasilar infilltrates/effusions CBC, BMP 09/09/17 05:00 09/09/17 05:00 Microbiology 09/06/17 12:29 Blood - Peripheral Venous Blood Culture - Preliminary NO GROWTH OBTAINED AFTER 48 HOURS, INCUBATION TO CONTINUE FOR 3 DAYS. 09/06/17 12:29 Blood - Peripheral Venous Blood Culture - Preliminary NO GROWTH OBTAINED AFTER 48 HOURS, INCUBATION TO CONTINUE FOR 3 DAYS. 09/06/17 15:00 Urine - Urine Clean Catch Urine Culture - Final NO GROWTH OBTAINED 09/06/17 16:00 Nasopharyngeal Swab Influenza Types A,B Antigen (TORRES) - Final 09/06/17 16:00 Nasopharyngeal Swab - Final a/p s/p CVA-clinically improved possible pneumonia- continue rocephin/zithromax day #3 f/u cultures f/u legionella urinary antigen lellukocytosis- ?reactive
[2017-09-09] MEDS: CEFTRIAXONE 1 GM in DEXTROSE 5%-WATER - 50 ML IVPB SCH ×2 (09:55→09:56)
[2017-09-09] MEDS: AZITHROMYCIN IVPB 500 MG in DEXTROSE 5%-WATER - 250 ML IVPB SCH (09:55)
[2017-09-09] MEDS ORDERED: METOPROLOL TARTRATE 5 MG/5 ML VIAL IVPUSH SCH (10:00)
[2017-09-09] MEDS: HEPARIN NA (PORCINE) 5,000 UNITS/ML 1ML VIAL SQ SCH ×2 (10:00→21:33)
[2017-09-09] MEDS: MUPIROCIN 2% TOPICAL OINTMENT FOR DECOLONIZATION NS SCH ×2 (10:01→22:27)
--- NOTE | 2017-09-09 10:05 | PN ---
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 (short form) - Note 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: 82 Year old female history of Hypertension and 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 Her blood pressure was very high and she was found to have ischemic lesion on right side . Later she had mri of brain and had right mca ischemic stroke and right cerebellar infarct ( Involvement of PICA) This morning , she is very bright and sitting on chair and able to drink coffee , Neurological Examination Alert and follow command, no facial asymmetry, pupils is small She is moving much better on left side and left upper exremity is grade 5- and left lower extremity is almost normal mri of brain and mra of brain was reviewed carotid ultrasound was unremarkable Assessment- Right mca stroke and right cerebellar stroke , carotid ultraosund wa snormal, possibly she had embolic episode from cardiac source 2.Pneumonia and CHF Plan- - continue statin and add Aspirin - No source of thromboembolism has been identified, advise to hold anticoagulation at this time, given she has large stroke - Her antihypertensive Medicaiton can be resumed. PT, Speech , dvt prophylaxis Please call if any question Neuro check Thanks for consult Jonathon Sotelo MD
[2017-09-09] MEDS: CEFTRIAXONE 1 G/50 ML PREMIX 50 ML IVPB SCH (10:19)
--- NOTE | 2017-09-09 10:21 | PN ---
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 (short form) - Note 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: PULMONARY/CCM Pt seen and examined in the ICU. Still mildly confused but much more alert, awake today. Last Vital Signs Temp Pulse Resp BP Pulse Ox 98 F 86 22 171/83 95 09/09/17 02:00 09/09/17 09:14 09/09/17 08:00 09/09/17 08:00 09/09/17 09:14 Intake & Output 09/06/17 09/07/17 09/08/17 09/09/17 23:59 23:59 23:59 23:59 Intake Total 194 543 0558 Output Total 500 1400 Balance 292 80 -396 Weight 124 lb 12.506 oz 126 lb 9.6 oz Gen: confused, more alert, awake Heart: RRR Lung: decreased breath sounds at the bases Abd: soft, nontender Ext: no edema CBC, BMP 09/09/17 05:00 09/09/17 05:00 Active Medications Acetaminophen (Ofirmev Injection -) 1,000 mg IVPB Q6H PRN PRN Reason: FEVER OR PAIN Albuterol Sulfate (Ventolin 0.083% Nebulizer Soln -) 1 amp NEB QIDR [facility] Last Admin: 09/09/17 06:50 Dose: 1 amp Atorvastatin Calcium (Lipitor -) 40 mg PO HS [facility] Last Admin: 09/08/17 23:14 Dose: Not Given Chlorhexidine Gluconate (Hibiclens For Decolonization -) 1 applic TP HS [facility] Last Admin: 09/08/17 23:14 Dose: 1 applic Heparin Sodium (Porcine) (Heparin -) 5,000 unit SQ BID [facility] Last Admin: 09/09/17 10:00 Dose: 5,000 unit Sodium Chloride (Normal Saline -) 1,000 mls @ 42 mls/hr IV ASDIR [facility] Last Admin: 09/09/17 03:34 Dose: Not Given Azithromycin 500 mg/ Dextrose 250 mls @ 250 mls/hr IVPB DAILY [facility] Last Admin: 09/09/17 09:55 Dose: 250 mls/hr CEFTRIAXONE 1 G/50 ML PREMIX (Ceftriaxone 1 Gm-D5w Bag) 50 mls @ 100 mls/hr IVPB DAILY [facility] Last Admin: 09/09/17 10:19 Dose: 100 mls/hr Labetalol HCl (Normodyne Injection -) 10 mg IVPUSH Q3H PRN PRN Reason: HEADACHE Last Admin: 09/08/17 17:55 Dose: 10 mg Metoprolol Tartrate (Lopressor Injection -) 5 mg IVPUSH QID [facility] Mupirocin (Bactroban Ointment (For Decolonization) -) 1 applic NS BID [facility] Stop: 09/11/17 21:59 Last Admin: 09/09/17 10:01 Dose: 1 applic Ondansetron HCl (Zofran Injection) 4 mg IVPUSH Q6H PRN PRN Reason: NAUSEA AND/OR VOMITING Last Admin: 09/09/17 03:35 Dose: 4 mg A/P Altered Mental Status Acute/Subacute CVA Pneumonia Bilateral Pleural Effusions HTN Hyperlipidemia - continue antibiotics - monitor fever curve, WBC trend - BP control, resume home meds - PO as tolerated - aspiration precautions - DVT prophylaxis - can monitor on stroke unit
[2017-09-09] MEDS: amLODIPine BESYLATE 5 MG TABLET (FP) PO SCH (10:36)
[2017-09-09] MEDS: LOSARTAN POTASSIUM 50 MG TABLET (FP) PO SCH (10:36)
--- NOTE | 2017-09-09 11:12 | PN ---
Teaching Attending Note Name of Resident: . Time of evaluation: 7:45 AM SUBJECTIVE: Patient seen and examined,awake appropriately conversant, follows commands, no dyspnea, headache or new complaints. OBJECTIVE: Vital Signs Period Temp Pulse Resp BP Sys/Espinoza Pulse Ox Last 24 Hr 98 F-98.2 F 69-92 17-26 144-203/60-95 95-98 Intake & Output 09/06/17 09/07/17 09/08/17 09/09/17 23:59 23:59 23:59 23:59 Intake Total 733 206 5505 Output Total 500 1400 Balance 292 80 -396 Weight 124 lb 12.506 oz 126 lb 9.6 oz General: lying in bed, awake, no acute distress, appropriately conversant CVS;S1S2 regular Chest: limited exam, decreased air entry, no rales anteriorly Abdomen: soft, NT, Nd, positive bowel sounds extremities: no edema Neuro AA, oriented to person, place, knows is dec, thought was 1916, then corrected to 2016, mild left facial droop, no pronator drift, LUE 5-, LLE almost normal, RUE/RLE 5/5, some past pointing on finger nose test and heel beverly test on left side, EOMI, no nystagmus or lid lag on horizontal eye movements, sensation grossly intact to light touch Active Medications Acetaminophen (Ofirmev Injection -) 1,000 mg IVPB Q6H PRN PRN Reason: FEVER OR PAIN Albuterol Sulfate (Ventolin 0.083% Nebulizer Soln -) 1 amp NEB QIDR [facility] Last Admin: 09/09/17 06:50 Dose: 1 amp Amlodipine Besylate (Norvasc -) 5 mg PO DAILY [facility] Last Admin: 09/09/17 10:36 Dose: 5 mg Atorvastatin Calcium (Lipitor -) 40 mg PO HS [facility] Last Admin: 09/08/17 23:14 Dose: Not Given Chlorhexidine Gluconate (Hibiclens For Decolonization -) 1 applic TP HS [facility] Last Admin: 09/08/17 23:14 Dose: 1 applic Heparin Sodium (Porcine) (Heparin -) 5,000 unit SQ BID [facility] Last Admin: 09/09/17 10:00 Dose: 5,000 unit Azithromycin 500 mg/ Dextrose 250 mls @ 250 mls/hr IVPB DAILY [facility] Last Admin: 09/09/17 09:55 Dose: 250 mls/hr CEFTRIAXONE 1 G/50 ML PREMIX (Ceftriaxone 1 Gm-D5w Bag) 50 mls @ 100 mls/hr IVPB DAILY [facility] Last Admin: 09/09/17 10:19 Dose: 100 mls/hr Labetalol HCl (Normodyne Injection -) 10 mg IVPUSH Q3H PRN PRN Reason: HEADACHE Last Admin: 09/08/17 17:55 Dose: 10 mg Losartan Potassium (Cozaar -) 50 mg PO DAILY [facility] Last Admin: 09/09/17 10:36 Dose: 50 mg Metoprolol Tartrate (Lopressor Injection -) 5 mg IVPUSH QID [facility] Mupirocin (Bactroban Ointment (For Decolonization) -) 1 applic NS BID [facility] Stop: 09/11/17 21:59 Last Admin: 09/09/17 10:01 Dose: 1 applic Ondansetron HCl (Zofran Injection) 4 mg IVPUSH Q6H PRN PRN Reason: NAUSEA AND/OR VOMITING Last Admin: 09/09/17 03:35 Dose: 4 mg Laboratory Results - last 24 hr 09/09/17 09/09/17 05:00 05:00 WBC 21.5 H RBC 4.72 Hgb 14.2 Hct 41.8 MCV 88.6 MCH 30.2 MCHC 34.1 RDW 12.4 Plt Count 261 D MPV 8.7 Neutrophils % 83.4 H Lymphocytes % 3.5 L Monocytes % 12.0 H Eosinophils % 0.8 D Basophils % 0.3 Sodium 140 Potassium 3.6 Chloride 99 Carbon Dioxide 31 Anion Gap 10 BUN 13 Creatinine 0.6 Creat Clearance w eGFR > 60 Random Glucose 112 H D Calcium 8.7 Phosphorus 2.6 D Magnesium 1.9 Total Bilirubin 0.9 D AST 22 D ALT 23 Alkaline Phosphatase 77 Total Protein 6.3 L Albumin 2.8 L Microbiology 09/06/17 12:29 Blood - Peripheral Venous Blood Culture - Preliminary NO GROWTH OBTAINED AFTER 48 HOURS, INCUBATION TO CONTINUE FOR 3 DAYS. 09/06/17 12:29 Blood - Peripheral Venous Blood Culture - Preliminary NO GROWTH OBTAINED AFTER 48 HOURS, INCUBATION TO CONTINUE FOR 3 DAYS. 09/06/17 15:00 Urine - Urine Clean Catch Urine Culture - Final NO GROWTH OBTAINED 09/06/17 16:00 Nasopharyngeal Swab Influenza Types A,B Antigen (TORRES) - Final 09/06/17 16:00 Nasopharyngeal Swab - Final ASSESSMENT AND PLAN: 82 yof with PMHx of HTN, HLD, admitted with shortness of breath, likely LLL CAP with sepsis, with component of acute diastolic heart failure, hypertensive urgency and Possible right acute/subacute frontoparietal CVA. 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 Cleared bed side swallow eval. Pureed diet. aspiration precauations, official speech/swallow eval in AM. Resume home anti-hypertensives, amlodipine and losartan, labetalol prn. D/c Metoprolol in 24 hours as taking PO and BP controlled ASA/, statin , change lipitor to 80 mg hs. Caution with sedatives unless absolutely indicated. Ceftriaxone/azithromycin day 4, blood cultures. Sputum cultures if available. Patient reports famHx of CLL and has chronic leucocytosis around 16, but did not want bone marrow biopsy and does not want to pursue further workup. Trend CBC, suspect partly from CVA and partly from her chronic leucocytosis. CT chest noted. ID input appreciated. Lasix held given concerns for rapid BP drop in the setting of acute CVA. strict i/Os and daily weights, lasix prn. Cardiology input appreciated. Monitor lytes, follow up with cardiology, will add oral beta lyndsey in 24 hours as tolerated. K normalized, Monitor. DVTPPX per with neurology.neurosurgery. Prognosis, mental status improved, Discussed with Dr. [place], transfer to telemetry. Total critical care time spent in ICU 35 min.
[2017-09-09] MEDS ORDERED: FUROSEMIDE 40 MG/4 ML INJECTABLE VIAL ONE ×2 (14:42→21:00)
--- NOTE | 2017-09-09 15:05 | PN ---
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 leukocytosis, probable LLL infiltrate and congestive changes. MRI of the brain revealed multiple CVAs. History of hypertension and hypercholesterolemia. Significant improvement since yesterday, OOB in a chair, conversing, no speech or motor deficit, BP remains elevated and X-ray chest reveals bilateral pleural effusions and congestive changes. Amlodipine was restarted and on Losartan added. Active Medications Acetaminophen (Ofirmev Injection -) 1,000 mg IVPB Q6H PRN PRN Reason: FEVER OR PAIN Albuterol Sulfate (Ventolin 0.083% Nebulizer Soln -) [address] [facility] Last Admin: 09/09/17 11:46 Dose: 1 amp Amlodipine Besylate (Norvasc -) [address] [facility] Last Admin: 09/09/17 10:36 Dose: 5 mg Atorvastatin Calcium (Lipitor -) [address] [facility] Last Admin: 09/08/17 23:14 Dose: Not Given Chlorhexidine Gluconate (Hibiclens For Decolonization -) [address] [facility] Last Admin: 09/08/17 23:14 Dose: 1 applic Heparin Sodium (Porcine) (Heparin -) 5,[address] [facility] Last Admin: 09/09/17 10:00 Dose: 5,000 unit Azithromycin 500 mg/ Dextrose 250 mls @ 250 mls/hr IVPB DAILY [facility] Last Admin: 09/09/17 09:55 Dose: 250 mls/hr CEFTRIAXONE 1 G/50 ML PREMIX (Ceftriaxone 1 Gm-D5w Bag) 50 mls @ 100 mls/hr IVPB DAILY [facility] Last Admin: 09/09/17 10:19 Dose: 100 mls/hr Labetalol HCl (Normodyne Injection -) 10 mg IVPUSH Q3H PRN PRN Reason: HEADACHE Last Admin: 09/08/17 17:55 Dose: 10 mg Losartan Potassium (Cozaar -) [address] [facility] Last Admin: 09/09/17 10:36 Dose: 50 mg Metoprolol Tartrate (Lopressor Injection -) [address] [facility] Mupirocin (Bactroban Ointment (For Decolonization) -) [address] [facility] Stop: 09/11/17 21:59 Last Admin: 09/09/17 10:01 Dose: 1 applic Ondansetron HCl (Zofran Injection) 4 mg IVPUSH Q6H PRN PRN Reason: NAUSEA AND/OR VOMITING Last Admin: 09/09/17 03:35 Dose: 4 mg 82 year old female is fully alert and oriented in time and space. No pallor or cyanosis, clubbing or jaundice.2 lb. weight gain. Last Vital Signs Temp Pulse Resp BP Pulse Ox 98.7 F 82 14 193/82 95 09/09/17 10:00 09/09/17 12:00 09/09/17 12:00 09/09/17 12:00 09/09/17 09:14 Intake & Output 09/06/17 09/07/17 09/08/17 09/09/17 23:59 23:59 23:59 23:59 Intake Total 338 016 5924 Output Total 500 1400 Balance 292 80 -396 Weight 124 lb 12.506 oz 126 lb 9.6 oz Repeat BP NECK: Supple, no JVD, No HJR, carotids are 2+, no bruits are heard. HEART: PMI is in 5th ICS, no heaves or thrills. S1 and S2 are normal. No murmur or gallops were heard. LUNGS: Fine creps. at the right base. ABDOMEN: Soft, nontender, no organomegaly or palpable masses felt. EXTREMITIES: No calf tenderness or dependent edema. 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 CBC, BMP 09/09/17 05:00 09/09/17 05:00 IMPRESSION: 1. Accelerated Hypertension, poorly controlled. 2. CHF. 3. Probable LLL pneumonia. 4. Multiple CVAs. without obvious neurological deficit. 5. Hypercholesterolemia. 6. History of VPBs. 7. Hypercholestrolemia. Recommendations: 1. Lasix 20mg. IV now. 3. Extra dose of Losartan 50mg.and can be restarted on prehospitalization meds. 4. Switch to Bystolic 20mg. po daily. 5. F/u BMP. 6. Spoke to son at length regarding status. Prognosis: Guarded. Time spent 30 Mins. Problem List - Problems (1) Sepsis Code(s): A41.9 - SEPSIS, UNSPECIFIED ORGANISM (2) Accelerated hypertension Code(s): I10 - ESSENTIAL (PRIMARY) HYPERTENSION (3) Ventricular premature beats, contractions, or systoles Code(s): I49.3 - VENTRICULAR PREMATURE DEPOLARIZATION (4) Altered mental status Code(s): R41.82 - ALTERED MENTAL STATUS, UNSPECIFIED Qualifiers: Altered mental status type: transient alteration of awareness Qualified Code(s): R40.4 - Transient alteration of awareness (5) Pneumonia Code(s): J18.9 - PNEUMONIA, UNSPECIFIED ORGANISM Qualifiers: Pneumonia type: due to unspecified organism Laterality: left Lung location: lower lobe of lung Qualified Code(s): J18.1 - Lobar pneumonia, unspecified organism (6) Left ventricular failure Code(s): I50.1 - LEFT VENTRICULAR FAILURE, UNSPECIFIED
[2017-09-09] MEDS ORDERED: LABETALOL HCL 5 MG/1 ML (100MG/20 ML VIAL) IVPUSH PRN (17:57)
[2017-09-09] MEDS ORDERED: FUROSEMIDE 40 MG/4 ML INJECTABLE VIAL IVPUSH ONE (18:15)
[2017-09-09] MEDS ORDERED: LOSARTAN POTASSIUM 50 MG TABLET (FP) PO ONE (18:15)
[2017-09-09] MEDS: NEBIVOLOL 10 MG TABLET (FP) PO SCH (21:32)
[2017-09-09] MEDS: ATORVASTATIN CA 40 MG TABLET (FP) PO SCH (21:33)
[2017-09-09] MEDS: CHLORHEXIDINE GLUCONATE 4% CLEANSER FOR DECOLONIZATION TP SCH (22:27)
[2017-09-09] MEDS ORDERED: ATORVASTATIN CA 40 MG TABLET (FP) PO ONE (23:44)
[2017-09-09] MEDS: ASPIRIN 81 MG CHEWABLE TABLETS PO SCH (23:45)
[2017-09-09] MEDS ORDERED: ASPIRIN 81 MG CHEWABLE TABLETS ONE (23:45)
[2017-09-09 23:46] LABS: BASO % 0.2 % (0-2.0); EOS % 1.6 % (0-4.5); HEMATOCRIT 44.1 % (32.4-45.2); HEMOGLOBIN 14.9 GM/dL (10.7-15.3); LYMPH % 5.6 % (8-40); MCH 29.7 pg (25.7-33.7); MCHC 33.8 g/dl (32.0-36.0); MEAN CELL VOLUME 87.7 fl (80-96); MEAN PLT VOLUME 8.2 fl (7.5-11.1); MONO % 12.5 % (3.8-10.2); NEUT % 80.1 % (42.8-82.8); PLATELET COUNT 313 K/MM3 (134-434); RBC 5.03 M/mm3 (3.60-5.2); RDW 12.8 % (11.6-15.6); WHITE BLOOD COUNT 16.7 K/mm3 (4.0-10.0)
[2017-09-10 00:15] LABS: INR 1.21 (0.82-1.09); PROTHROMBIN TIME (PATIENT) 13.7 SEC (9.98-11.88)
[2017-09-10 00:18] LABS: ACTIVATED PTT 31.5 SECONDS (26.9-34.4)
[2017-09-10 00:30] LABS: ALBUMIN 2.8 g/dl (3.4-5.0); ANION GAP 12 (8-16); BILIRUBIN,TOTAL 1.1 mg/dL (0.2-1.0); BLOOD UREA NITROGEN 13 mg/dL (7-18); CALCIUM 8.5 mg/dL (8.5-10.1); CHLORIDE 96 mmol/L (98-107); CO2 31 mmol/L (21-32); CREATININE 0.7 mg/dL (0.55-1.02); GLUCOSE,RANDOM 165 mg/dL (74-106); MAGNESIUM 1.8 mg/dL (1.8-2.4); PHOSPHOROUS 2.9 mg/dL (2.5-4.9); SGOT/AST 27 U/L (15-37); SGPT/ALT 34 U/L (12-78); SODIUM 139 mmol/L (136-145); TOT PROT 6.5 g/dl (6.4-8.2)
[2017-09-10 00:33] LABS: ALK PHOS 83 U/L (45-117)
[2017-09-10 00:35] LABS: POTASSIUM 2.9 mmol/L (3.5-5.1)
--- NOTE | 2017-09-10 01:18 | HOSP ---
Subjective - Review of Symptoms Subjective: Agree with resident note <Dawna Daily - Last Filed: 09/10/17 02:57> Physical Examination Vital Signs: Vital Signs Temperature 98.1 F 09/10/17 02:00 Pulse Rate 112 H 09/10/17 02:00 Respiratory Rate 18 09/10/17 02:00 Blood Pressure 151/66 09/10/17 02:00 O2 Sat by Pulse Oximetry (%) 94 L 09/09/17 22:00 Labs: CBC, BMP 09/09/17 23:30 09/09/17 23:30 <Dawna Daily - Last Filed: 09/10/17 02:57> Vital Signs: Vital Signs Temperature 98.1 F 09/09/17 22:00 Pulse Rate 80 09/09/17 22:00 Respiratory Rate 18 09/09/17 22:00 Blood Pressure 166/88 09/09/17 22:00 O2 Sat by Pulse Oximetry (%) 94 L 09/09/17 22:00 Labs: CBC, BMP 09/09/17 23:30 09/09/17 23:30 <Segundo Howe - Last Filed: 09/12/17 01:06> Hospitalist Encounter Assessment: Paged by RN. Patient found to be in atrial fibrillation with HR in 110-120's. Spoke with Dr. Quiñones and Dr. Sotelo. After speaking with both cardiology and neurology, recommendations were to start patient on aspirin 81 mg, lipitor 80 mg , and not start any AC as patient is still at risk for hemorrhagic conversion after CVA. Patient's son wants patient transferred to ICU. Case discussed with ICU DIGITAL DATA ANALYST, patient is currently not a candidate for transfer. Plan discussed with son and he expresses understanding. VS: BP 166/88, pulse 110, RR 18, O2 94L on 3L Plan: EKG CBC CMP Mg Phos Trop Will continue to monitor thoroughout the night. <Segundo Howe - Last Filed: 09/12/17 01:06> Visit type - Emergency Visit Emergency Visit: Yes ED Registration Date: 09/06/17 Care time: The patient presented to the Emergency Department on the above date and was hospitalized for further evaluation of their emergent condition. - New Patient This patient is new to me today: Yes Date on this admission: 09/12/17 - Critical Care Critical Care patient: No <Segundo Howe - Last Filed: 09/12/17 01:06>
[2017-09-10] MEDS ORDERED: POTASSIUM CHLORIDE ORAL LIQUID 20 MEQ/15 ML PO ONE ×3 (01:26→11:45)
[2017-09-10] MEDS: ALBUTEROL SO4 0.083% IH SOL 2.5 MG/3 ML VIAL.NEB. NEB SCH ×4 (05:57→23:01)
[2017-09-10 07:09] LABS: BASO % 0.4 % (0-2.0); EOS % 2.2 % (0-4.5); HEMATOCRIT 43.8 % (32.4-45.2); HEMOGLOBIN 14.8 GM/dL (10.7-15.3); LYMPH % 8.2 % (8-40); MCH 29.6 pg (25.7-33.7); MCHC 33.8 g/dl (32.0-36.0); MEAN CELL VOLUME 87.4 fl (80-96); MEAN PLT VOLUME 8.5 fl (7.5-11.1); MONO % 20.2 % (3.8-10.2); PLATELET COUNT 349 K/MM3 (134-434); RBC 5.01 M/mm3 (3.60-5.2); RDW 12.4 % (11.6-15.6); WHITE BLOOD COUNT 15.7 K/mm3 (4.0-10.0)
--- NOTE | 2017-09-10 07:27 | PN ---
Physical Exam: SUBJECTIVE: Patient seen and examined at bedside. She has altered mental status and is unable to discuss her history very well. Patient denies overt chest pain , but states that she is feeling palpitations. Denies shortness of breath, nausea, vomiting, diarrhea, fevers, chills. OBJECTIVE: Vital Signs Period Temp Pulse Resp BP Sys/Espinoza Pulse Ox Last 24 Hr 97.8 F-98.8 F 76-112 12-22 106-194/60-88 94-95 GENERAL: The patient is tired but awake, alert and oriented x2. No acute distress HEAD: Normal with no signs of trauma. EYES: PERRL, extraocular movements intact, sclera anicteric, conjunctiva clear. No ptosis. ENT: Ears normal, nares patent, oropharynx clear without exudates, moist mucous membranes. NECK: Trachea midline, full range of motion, supple. LUNGS: Breath sounds equal, clear to auscultation bilaterally, no wheezes, no crackles, no accessory muscle use. Patient saturating at 89% on RA. HEART: tachycardic and irregular, S1, S2 without murmur, rub or gallop. ABDOMEN: Soft, nontender, nondistended, normoactive bowel sounds, no guarding, no rebound, no hepatosplenomegaly, no masses. EXTREMITIES: 2+ pulses, warm, well-perfused, no edema. NEUROLOGICAL: Cranial nerves II through XII grossly intact. motor strength 5/5 in both upper and lower extremities bilaterally PSYCH: altered, slightly agitated SKIN: Warm, dry, normal turgor, no rashes or lesions noted Laboratory Results - last 24 hr 09/09/17 09/09/17 09/09/17 23:30 23:30 23:30 WBC 16.7 H RBC 5.03 Hgb 14.9 Hct 44.1 MCV 87.7 MCH 29.7 MCHC 33.8 RDW 12.8 Plt Count 313 MPV 8.2 Neutrophils % 80.1 Lymphocytes % 5.6 L D Monocytes % 12.5 H Eosinophils % 1.6 D Basophils % 0.2 PT with INR 13.70 H INR 1.21 H PTT (Actin FS) 31.5 Sodium 139 Potassium 2.9 L* Chloride 96 L Carbon Dioxide 31 Anion Gap 12 BUN 13 Creatinine 0.7 Creat Clearance w eGFR > 60 Random Glucose 165 H D Calcium 8.5 Phosphorus 2.9 Magnesium 1.8 Total Bilirubin 1.1 H D AST 27 D ALT 34 D Alkaline Phosphatase 83 Troponin I < 0.02 Total Protein 6.5 Albumin 2.8 L 09/10/17 05:28 WBC 15.7 H RBC 5.01 Hgb 14.8 Hct 43.8 MCV 87.4 MCH 29.6 MCHC 33.8 RDW 12.4 Plt Count 349 MPV 8.5 Neutrophils % 69.0 Lymphocytes % 8.2 D Monocytes % 20.2 H Eosinophils % 2.2 Basophils % 0.4 PT with INR INR PTT (Actin FS) Sodium Potassium Chloride Carbon Dioxide Anion Gap BUN Creatinine Creat Clearance w eGFR Random Glucose Calcium Phosphorus Magnesium Total Bilirubin AST ALT Alkaline Phosphatase Troponin I Total Protein Albumin Active Medications Generic Name Dose Route Start Last Admin Trade Name Freq PRN Reason Stop Dose Admin Acetaminophen 1,000 mg 09/08/17 16:18 Ofirmev Injection - IVPB Q6H PRN FEVER OR PAIN Albuterol Sulfate 1 amp 09/06/17 18:00 09/10/17 05:57 Ventolin 0.083% Nebulizer Soln - NEB 1 amp QIDR [facility] Administration Amlodipine Besylate 5 mg 09/09/17 10:30 09/09/17 10:36 Norvasc - PO 5 mg DAILY [facility] Administration Aspirin 81 mg 09/09/17 23:45 09/09/17 23:45 Asa - PO 81 mg DAILY [facility] Administration Atorvastatin Calcium 80 mg 09/10/17 22:00 Lipitor - PO HS [facility] Heparin Sodium (Porcine) 5,000 unit 09/07/17 22:00 09/09/17 21:33 Heparin - SQ 5,000 unit BID [facility] Administration Azithromycin 500 mg/ Dextrose 250 mls @ 250 mls/hr 09/06/17 14:33 09/09/17 09 :55 IVPB 250 mls/hr DAILY [facility] Administration CEFTRIAXONE 1 G/50 ML PREMIX 50 mls @ 100 mls/hr 09/07/17 15:00 09/09/17 10: 19 Ceftriaxone 1 Gm-D5w Bag IVPB 100 mls/hr DAILY [facility] Administration Labetalol HCl 10 mg 09/09/17 17:57 Normodyne Injection - IVPUSH Q6H PRN HEADACHE Losartan Potassium 50 mg 09/09/17 10:30 09/09/17 10:36 Cozaar - PO 50 mg DAILY [facility] Administration Nebivolol 20 mg 09/09/17 18:00 09/09/17 21:32 Bystolic - PO 20 mg DAILY [facility] Administration Ondansetron HCl 4 mg 09/08/17 21:04 09/09/17 21:33 Zofran Injection IVPUSH 4 mg Q6H PRN Administration NAUSEA AND/OR VOMITING ASSESSMENT/PLAN: MRI BRAIN WITHOUT CONTRAST: 1. Acute right middle cerebral artery territory infarction involving the temporoparietal lobes extending into the posterior insular cortex, with local mass effects as described above. No midline shift or herniation pattern. 2. Acute right PICA territory infarction with local sulcal effacement and partial effacement of the fourth ventricle outflow tract. No cerebellar herniation pattern or hydrocephalus at this time. 3. Generalized, age -related volume loss and moderately severe chronic microvascular ischemic changes with clinical coronary infarct as described above. Focus of hemosiderin in the left cerebellum reflecting the sequela of prior petechial microhemorrhages, likely secondary to hypertension. MRA [place] - 1. Absence of flow in the right posterior-inferior cerebral artery which is most likely due to occlusion given the large right cerebellar infarct. 2. Mild luminal narrowing in the M1 and M2 segments of the right MCA with attenuated flow in the inferior M2 division. No occlusion in the central arteries of the [place]. 3. 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 4. Attenuated flow in the P2 and P3 segments of the right BEHAVIORAL PEDIATRICIAN may be secondary to slow flow. ASSESSMENT/PLAN: 82 year old female with a past medical history of hypertension, CHF, hyperlipidemia admitted to the ICU for sepsis 2/2 pneumonia, hypertensive emergency, and ischemic stroke. #Atrial Fibrillation: rate is in the 120s, patient feeling palpitations -Patient's aspirin 81mg continued -increase atorvastatin to 80mg -continue nabivolol and labetalol IV PRN in ICU to control rate, can titrate with labetalol drip if necessary to reduce BP #Ischemic Stroke: condition stable, no neurological deficits noted; -new CT head showed evolving ischemic infarct but stable, not hemorrhagically converted -Continue asa 81mg QD -increase atorvastatin 40mg -patient tolerating PO puree diet -will need anticoagulation, start on heparin drip with no bolus -keep blood pressure low <140 -discussed with Dr. Pérez (neurology) and Dr. Cruz (cardiology) who are agreeable with plan) #Sepsis likely 2/2 Pneumonia: -ceftriaxone/azithromycin coverage QD, day #4 #Hypertensive Emergency: BP improved to 151/66 today, has been stable for last several days -continue labetalol 10mg IV Q6h PRN -continue bystolic (nebivolol) 20mg PO QD -continue cozaar (50mg PO QD) -echocardiogram is within normal limits #Hyperkalemia: potassium 2.9 yesterday, was repleted -replete as necessary #FEN: -no standing fluids -replete lytes as necessary -puree diet #Prophylaxis -Heparin 5000 Subq TID #Disposition -Continue to monitor on telemetry Visit type - Emergency Visit Emergency Visit: No - New Patient This patient is new to me today: No - Critical Care Critical Care patient: Yes Total Critical Care Time (in minutes): 30 Critical Care Statement: The care of this patient involved high complexity decision making to prevent further life threatening deterioration of the patient 's condition and/or to evaluate & treat vital organ system(s) failure or risk of failure.
--- NOTE | 2017-09-10 07:39 | PN ---
Teaching Attending Note Name of Resident: Daniel Thapa ATTENDING PHYSICIAN STATEMENT Time of evaluation: 10:40 AM I saw and evaluated the patient. I reviewed the resident's note and discussed the case with the resident. I agree with the resident's findings and plan as documented. SUBJECTIVE: Patient seen and examined. Opens eyes, answers questions appropriately. OX3, denies any pain. Aware of her current hospital stay and stroke. No real recollection of events overnight, does not recall being agitated or trying to get out of bed. Calm and appropriate currently. Again able to state her outpatient WBC count and not wanting any bone marrow biopsy or additional w/u. OBJECTIVE: Vital Signs Period Temp Pulse Resp BP Sys/Espinoza Pulse Ox Last 24 Hr 97.8 F-98.8 F 76-112 12-22 106-194/60-88 94-95 Intake & Output 09/07/17 09/08/17 09/09/17 09/10/17 23:59 23:59 23:59 23:59 Intake Total 580 1004 1404 620 Output Total 500 1400 200 Balance 80 -396 1204 620 Weight 126 lb 9.6 oz General: calm appropriate in bed, opens eyes for conversation and closes them back but full conversant, in no acute distress Chest: poor effort, no rales or wheezing appreciated CVS:S1S2 irregular rapid Abdomen:soft, NT, ND, positive bowel sounds Extremities:no edema, chronic skin changes and ecchymotic areas Neuro:Awake, opens eyes and responds appropriately, OX3 (initally thought 1917 then corrected to 2017), mild left facial droop unchanged, PERRLA, EOMI, LUE 5- , LLE almost normal RUE/RLE 5/5, unable to perform finger nose test and heel beverly given lack of full co-operation, sensation intact and symmetric to gross touch bilaterally Home Medication List Medication Instructions Recorded Confirmed Type Amlodipine Bes/Olmesartan Med 1 each PO DAILY 09/29/13 09/06/17 History [Moose 5-40 mg Tablet] Furosemide 20 mg PO DAILY 09/06/17 09/06/17 History Active Medications Acetaminophen (Ofirmev Injection -) 1,000 mg IVPB Q6H PRN PRN Reason: FEVER OR PAIN Albuterol Sulfate (Ventolin 0.083% Nebulizer Soln -) 1 amp NEB QIDR [facility] Last Admin: 09/10/17 05:57 Dose: 1 amp Amlodipine Besylate (Norvasc -) 5 mg PO DAILY [facility] Last Admin: 09/09/17 10:36 Dose: 5 mg Aspirin (Asa -) 81 mg PO DAILY [facility] Last Admin: 09/09/17 23:45 Dose: 81 mg Atorvastatin Calcium (Lipitor -) 80 mg PO HS [facility] Heparin Sodium (Porcine) (Heparin -) 5,000 unit SQ BID [facility] Last Admin: 09/09/17 21:33 Dose: 5,000 unit Azithromycin 500 mg/ Dextrose 250 mls @ 250 mls/hr IVPB DAILY [facility] Last Admin: 09/09/17 09:55 Dose: 250 mls/hr CEFTRIAXONE 1 G/50 ML PREMIX (Ceftriaxone 1 Gm-D5w Bag) 50 mls @ 100 mls/hr IVPB DAILY [facility] Last Admin: 09/09/17 10:19 Dose: 100 mls/hr Labetalol HCl (Normodyne Injection -) 10 mg IVPUSH Q6H PRN PRN Reason: HEADACHE Losartan Potassium (Cozaar -) 50 mg PO DAILY [facility] Last Admin: 09/09/17 10:36 Dose: 50 mg Nebivolol (Bystolic -) 20 mg PO DAILY [facility] Last Admin: 09/09/17 21:32 Dose: 20 mg Ondansetron HCl (Zofran Injection) 4 mg IVPUSH Q6H PRN PRN Reason: NAUSEA AND/OR VOMITING Last Admin: 09/09/17 21:33 Dose: 4 mg Laboratory Results - last 24 hr 09/09/17 09/09/17 09/09/17 23:30 23:30 23:30 WBC 16.7 H RBC 5.03 Hgb 14.9 Hct 44.1 MCV 87.7 MCH 29.7 MCHC 33.8 RDW 12.8 Plt Count 313 MPV 8.2 Neutrophils % 80.1 Lymphocytes % 5.6 L D Monocytes % 12.5 H Eosinophils % 1.6 D Basophils % 0.2 PT with INR 13.70 H INR 1.21 H PTT (Actin FS) 31.5 Sodium 139 Potassium 2.9 L* Chloride 96 L Carbon Dioxide 31 Anion Gap 12 BUN 13 Creatinine 0.7 Creat Clearance w eGFR > 60 Random Glucose 165 H D Calcium 8.5 Phosphorus 2.9 Magnesium 1.8 Total Bilirubin 1.1 H D AST 27 D ALT 34 D Alkaline Phosphatase 83 Troponin I < 0.02 Total Protein 6.5 Albumin 2.8 L 09/10/17 09/10/17 05:28 05:28 WBC 15.7 H RBC 5.01 Hgb 14.8 Hct 43.8 MCV 87.4 MCH 29.6 MCHC 33.8 RDW 12.4 Plt Count 349 MPV 8.5 Neutrophils % 69.0 Lymphocytes % 8.2 D Monocytes % 20.2 H Eosinophils % 2.2 Basophils % 0.4 PT with INR INR PTT (Actin FS) Sodium 141 Potassium 3.4 L Chloride 98 Carbon Dioxide 30 Anion Gap 13 BUN 16 D Creatinine 0.7 Creat Clearance w eGFR > 60 Random Glucose 114 H D Calcium 8.9 Phosphorus 3.0 Magnesium 2.1 Total Bilirubin 1.1 H AST 30 ALT 31 Alkaline Phosphatase 85 Troponin I Total Protein 6.3 L Albumin 2.8 L Microbiology 09/06/17 12:29 Blood - Peripheral Venous Blood Culture - Preliminary NO GROWTH OBTAINED AFTER 72 HOURS, INCUBATION TO CONTINUE FOR 2 DAYS. 09/06/17 12:29 Blood - Peripheral Venous Blood Culture - Preliminary NO GROWTH OBTAINED AFTER 72 HOURS, INCUBATION TO CONTINUE FOR 2 DAYS. 09/09/17 09:50 Urine - Urine Clean Catch Legionella Antigen - Final 09/09/17 09:50 Urine - Urine Clean Catch Streptococcus pneumoniae Antigen ( M - Final 09/06/17 15:00 Urine - Urine Clean Catch Urine Culture - Final NO GROWTH OBTAINED 09/06/17 16:00 Nasopharyngeal Swab Influenza Types A,B Antigen (TORRES) - Final 09/06/17 16:00 Nasopharyngeal Swab - Final CT brain 09/10/2017 reviewed ASSESSMENT AND PLAN: 82 yof with PMHx of HTN, HLD, admitted with shortness of breath, likely LLL CAP with sepsis, with component of acute diastolic heart failure, hypertensive urgency and Possible right acute/subacute frontoparietal CVA. 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 -New onset Atrial fibrillation with RVR on 09/10/2017 -Agitation, suspect from mulitiple CVA +/- metabolic toxic encephalopathy from PNA/CHF -Sustained Ventricular tachycardia (9 beats) on 09/08/2017 -Hyperkalemia, ?etiology, ARB related, now with hypokalemia -Hypertensive urgency -Hyperlipidemia -Prior heavy smoker -Leucocytosis, patient reports famhx of CLL and 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 CT brain with evolving CVA with mass effect. Transfer back to ICU for close neurological and hemodynamic monitoring. Discuss with neurology about additional imaging, goals of BP control given evolving infarct and also anti-coagulation as ongoing embolic events could be contributory. BP had improved overnight. Neurosurgery input per clinical course, ICU and neurology. Aspiration precauations, Speech/swallow eval as above. PO ASA/statin as danny. Discuss with Dr. Quiñones, transition antihypertensives to metoprolol, PO vs IV as tolerated with IV prn for sustained HTN/tachycardia. Discuss with cardiology, ?metoprolol given new onset afib overnight. Caution with sedatives unless absolutely indicated. Ceftriaxone/azithromycin day 6, blood cultures neg so far. Sputum cultures if available. Patient reports famHx of CLL and has chronic leucocytosis around 16-20, but did not want bone marrow biopsy and does not want to pursue further workup. Trend CBC, suspect partly from CVA and partly from her chronic leucocytosis. CT chest noted. ID input appreciated. Lasix held given concerns for rapid BP drop in the setting of acute CVA. Lasix prn now based on volume status. Strict i/Os and daily weights, lasix prn. Cardiology input appreciated. Monitor lytes K normalized, Monitor. DVTPPX per with neurology.neurosurgery. Prognosis, mental status has improved from prior but now with evolving CVA with mass effect will need close monitoring in ICU and BP controls based on goals per neurology/neurosurgery. Patient accepted to ICU. Address goals of care with patient and HCP, discuss with the son. total critical care time spent 35 min. PLan discussed with patient in detail,updated on overnight evens and CT head
[2017-09-10 07:51] LABS: ALBUMIN 2.8 g/dl (3.4-5.0); ANION GAP 13 (8-16); BLOOD UREA NITROGEN 16 mg/dL (7-18); CALCIUM 8.9 mg/dL (8.5-10.1); CHLORIDE 98 mmol/L (98-107); CO2 30 mmol/L (21-32); GLUCOSE,RANDOM 114 mg/dL (74-106); MAGNESIUM 2.1 mg/dL (1.8-2.4); POTASSIUM 3.4 mmol/L (3.5-5.1); SODIUM 141 mmol/L (136-145)
[2017-09-10 07:58] LABS: ALK PHOS 85 U/L (45-117); BILIRUBIN,TOTAL 1.1 mg/dL (0.2-1.0); CREATININE 0.7 mg/dL (0.55-1.02); SGOT/AST 30 U/L (15-37); SGPT/ALT 31 U/L (12-78); TOT PROT 6.3 g/dl (6.4-8.2)
[2017-09-10] MEDS ORDERED: KCL 10 MEQ IVPB 10 MEQ/100 ML INFUS.BAG IVPB SCH (08:45)
--- NOTE | 2017-09-10 09:16 | PN ---
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 (short form) - Note 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: 82 Year old female history of Hypertension and 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 On September 05 ,She has not been feeling well and had shortness of breadth . Her blood pressure was very high and she was found to have ischemic lesion on right side . Later she had mri of brain and had right mca ischemic stroke and right cerebellar infarct ( Involvement of PICA) This morning , she is very bright and sitting on chair and able to drink coffee , Neurological Examination bp 150/78 pulse 102 rr 20 She is sleepy and able to follow command she was able to tell me what month is this, how old she is and where she is no facial asymmetry, pupils is small She is moving much better on left side and left upper exremity is grade 5- and left lower extremity is almost normal Mri fo brain showed right mca and right cerebellar stroke A/P - Right mca stroke and right cerebellar stroke , carotid ultraosund wasnormal, She is found to have new onset Atrial Fibrillation statin and aspirin was added last night - Hold Anticoagulation for now , as there is high risk of hemorrhagic conversion ( discussed with primary team), anticoagulation can be started on Sunday or . -PT,SPEECH, DVT prophylaxis - Continue Anti hypertensive Medication -Repeat ct head can be obtained today, as she is sleepy ( perhaps due as she could not sleep last night ) - Overall Prognosis is guarded 2. continue to treat Pneumonia and CHF as primary Thanks for consult Jonathon Sotelo MD
[2017-09-10] MEDS: LOSARTAN POTASSIUM 50 MG TABLET (FP) PO SCH ×2 (09:35→18:16)
[2017-09-10] MEDS ORDERED: ASPIRIN 81 MG CHEWABLE TABLETS PO SCH (10:00)
[2017-09-10] MEDS ORDERED: LABETALOL HCL 5 MG/1 ML (100MG/20 ML VIAL) IVPUSH ONE (10:15)
--- NOTE | 2017-09-10 10:30 | CONSULT ---
Consult - text type - Consultation Consultation Note: NEUROLOGY FOLLOW-UP: Events reviewed and discussed with Drs. Quiñones and Ashleigh. Dr. 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 Last night she was found to have rapid AFib. Dr. Richey denies prior history of AFib. Raul Quiñones and Ashleigh made aware. This AM. In AFib with irrieg pulse approx 110-120. Pt. is awake, alert, conversant, fluent and knows me. [facility], 2016. Left homonous hemianopsia. Minimal left drift. Normal ankle dorsiflexion. Downgoing toes. IMP: Mild residual right cerebral dysfunction. Doing very well after acute Stroke(s). Paroxysmal AFib. SUGGEST: Agree with CT of head. Continue aggressive BP control and rate control. Would NOT delay Anticoagulation. Pt. should be heparinized today even if the CT shows a small, spontaneous hemorrhagic conversion. Then, convert to long-term AC with warfarin or a NOAC. Thank you very much, Suman Péerz MD
[2017-09-10] MEDS ORDERED: PT OWN MED DRAWER 7, Y5N ONE (11:32)
[2017-09-10] MEDS: ASPIRIN 81 MG CHEWABLE TABLETS PO SCH (11:34)
[2017-09-10] MEDS: amLODIPine BESYLATE 5 MG TABLET (FP) PO SCH (11:34)
[2017-09-10] MEDS: HEPARIN NA (PORCINE) 5,000 UNITS/ML 1ML VIAL SQ SCH (11:39)
--- NOTE | 2017-09-10 11:41 | PN ---
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 (short form) - Note 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: I reviewed ct of head, in view of cerebellar edema , I requested Neurosurgery to see patient , spoke to nurse at 4W. Spoke to Dr Quiñones and Suman Pérez regarding treatment plan. In view of difference of opinion regarding use of Heparin, I would excuse myself from care of Dr Wiggins and Suman Pérez would take over care of Patient, discussed with Suman. I would be happy to provide any help if needed.
[2017-09-10] MEDS ORDERED: HEPARIN NA (PORCINE) 5,000 UNITS/ML 1ML VIAL IVPUSH PRN ×2 (11:51)
[2017-09-10] MEDS: NEBIVOLOL 10 MG TABLET (FP) PO SCH (12:16)
[2017-09-10] MEDS: CEFTRIAXONE 1 G/50 ML PREMIX 50 ML IVPB SCH (12:17)
[2017-09-10] MEDS: AZITHROMYCIN IVPB 500 MG in DEXTROSE 5%-WATER - 250 ML IVPB SCH (12:53)
--- NOTE | 2017-09-10 13:25 | PN ---
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 Illness: Awake, lethargic Offers no complaints Breathing appears non-labored Afebrile WBC slowly trending downward BC no growth - Current Medication List Current Medications: Active Medications Acetaminophen (Ofirmev Injection -) 1,000 mg IVPB Q6H PRN PRN Reason: FEVER OR PAIN Albuterol Sulfate (Ventolin 0.083% Nebulizer Soln -) 1 amp NEB QIDR [facility] Last Admin: 09/10/17 05:57 Dose: 1 amp Amlodipine Besylate (Norvasc -) 5 mg PO DAILY [facility] Last Admin: 09/10/17 11:34 Dose: 5 mg Aspirin (Asa -) 81 mg PO DAILY [facility] Last Admin: 09/10/17 11:34 Dose: 81 mg Atorvastatin Calcium (Lipitor -) 80 mg PO [facility] Heparin Sodium (Porcine) (Heparin -) 1,000 unit IVPUSH PRN PRN PRN Reason: Heparin Heparin Sodium (Porcine) (Heparin -) 5,000 unit IVPUSH PRN PRN PRN Reason: Heparin Azithromycin 500 mg/ Dextrose 250 mls @ 250 mls/hr IVPB DAILY [facility] Last Admin: 09/10/17 12:53 Dose: 250 mls/hr CEFTRIAXONE 1 G/50 ML PREMIX (Ceftriaxone 1 Gm-D5w Bag) 50 mls @ 100 mls/hr IVPB DAILY [facility] Last Admin: 09/10/17 12:17 Dose: 100 mls/hr Heparin Sodium (Porcine) 25, (000 unit/ Sodium Chloride) 500 mls @ 16 mls/hr IV TITR SHAHRAM; 800 UNIT/HR PRN Reason: Protocol Labetalol HCl 1,000 mg/ (Dextrose) 1,000 mls @ 120 mls/hr IV TITR SHAHRAM; 2 MG/MIN PRN Reason: Protocol Losartan Potassium (Cozaar -) 50 mg PO DAILY [facility] Last Admin: 09/10/17 09:35 Dose: 100 mg Nebivolol (Bystolic -) 20 mg PO DAILY [facility] Last Admin: 09/10/17 12:16 Dose: 20 mg Ondansetron HCl (Zofran Injection) 4 mg IVPUSH Q6H PRN PRN Reason: NAUSEA AND/OR VOMITING Last Admin: 09/09/17 21:33 Dose: 4 mg - Objective Vital Signs: Vital Signs Temperature 97.7 F 09/10/17 08:00 Pulse Rate 96 H 09/10/17 10:00 Respiratory Rate 18 09/10/17 09:00 Blood Pressure 189/76 09/10/17 10:00 O2 Sat by Pulse Oximetry (%) 94 L 09/10/17 06:00 Constitutional: Yes: No Distress Eyes: Yes: Conjunctiva Clear Cardiovascular: Yes: S1, S2. No: Regular Rate and Rhythm Respiratory: Yes: Diminished Gastrointestinal: Yes: Normal Bowel Sounds, Soft. No: Tenderness Labs: CBC, BMP 09/10/17 05:28 09/10/17 05:28 INR, PTT INR 1.21 (0.82-1.09) H 09/09/17 23:30 Assessment/Plan Bibasilar pneumonia CVA Leukocytosis- slowly improving Continue empiric ceftriaxone/ zithromax
--- NOTE | 2017-09-10 13:26 | PN ---
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 Illness: Awake, lethargic Offers no complaints Breathing appears non-labored Afebrile WBC slowly trending downward BC no growth - Current Medication List Current Medications: Active Medications Acetaminophen (Ofirmev Injection -) 1,000 mg IVPB Q6H PRN PRN Reason: FEVER OR PAIN Albuterol Sulfate (Ventolin 0.083% Nebulizer Soln -) 1 amp NEB QIDR [facility] Last Admin: 09/10/17 05:57 Dose: 1 amp Amlodipine Besylate (Norvasc -) 5 mg PO DAILY [facility] Last Admin: 09/10/17 11:34 Dose: 5 mg Aspirin (Asa -) 81 mg PO DAILY [facility] Last Admin: 09/10/17 11:34 Dose: 81 mg Atorvastatin Calcium (Lipitor -) 80 mg PO [facility] Heparin Sodium (Porcine) (Heparin -) 1,000 unit IVPUSH PRN PRN PRN Reason: Heparin Heparin Sodium (Porcine) (Heparin -) 5,000 unit IVPUSH PRN PRN PRN Reason: Heparin Azithromycin 500 mg/ Dextrose 250 mls @ 250 mls/hr IVPB DAILY [facility] Last Admin: 09/10/17 12:53 Dose: 250 mls/hr CEFTRIAXONE 1 G/50 ML PREMIX (Ceftriaxone 1 Gm-D5w Bag) 50 mls @ 100 mls/hr IVPB DAILY [facility] Last Admin: 09/10/17 12:17 Dose: 100 mls/hr Heparin Sodium (Porcine) 25, (000 unit/ Sodium Chloride) 500 mls @ 16 mls/hr IV TITR SHAHRAM; 800 UNIT/HR PRN Reason: Protocol Labetalol HCl 1,000 mg/ (Dextrose) 1,000 mls @ 120 mls/hr IV TITR SHAHRAM; 2 MG/MIN PRN Reason: Protocol Losartan Potassium (Cozaar -) 50 mg PO DAILY [facility] Last Admin: 09/10/17 09:35 Dose: 100 mg Nebivolol (Bystolic -) 20 mg PO DAILY [facility] Last Admin: 09/10/17 12:16 Dose: 20 mg Ondansetron HCl (Zofran Injection) 4 mg IVPUSH Q6H PRN PRN Reason: NAUSEA AND/OR VOMITING Last Admin: 09/09/17 21:33 Dose: 4 mg - Objective Vital Signs: Vital Signs Temperature 97.7 F 09/10/17 08:00 Pulse Rate 96 H 09/10/17 10:00 Respiratory Rate 18 09/10/17 09:00 Blood Pressure 189/76 09/10/17 10:00 O2 Sat by Pulse Oximetry (%) 94 L 09/10/17 06:00 Labs: CBC, BMP 09/10/17 05:28 09/10/17 05:28 INR, PTT INR 1.21 (0.82-1.09) H 09/09/17 23:30
--- NOTE | 2017-09-10 13:36 | PN ---
Teaching Attending Note Name of Resident: Phoenix Boyle ATTENDING PHYSICIAN STATEMENT I saw and evaluated the patient. I reviewed the resident's note and discussed the case with the resident. I agree with the resident's findings and plan as documented. SUBJECTIVE: Patient seen and examined in the ICU. Transferred back to ICU for concern of accelerated BP and confusion. Denies CP or SOB. Intake & Output 09/07/17 09/08/17 09/09/17 09/10/17 23:59 23:59 23:59 23:59 Intake Total 580 1004 1404 620 Output Total 500 1400 200 Balance 80 -396 1204 620 Weight 126 lb 9.6 oz Last Vital Signs Temp Pulse Resp BP Pulse Ox 97.7 F 96 H 18 189/76 94 L 09/10/17 08:00 09/10/17 10:00 09/10/17 09:00 09/10/17 10:00 09/10/17 06:00 Active Medications Acetaminophen (Ofirmev Injection -) 1,000 mg IVPB Q6H PRN PRN Reason: FEVER OR PAIN Albuterol Sulfate (Ventolin 0.083% Nebulizer Soln -) 1 amp NEB QIDR [facility] Last Admin: 09/10/17 05:57 Dose: 1 amp Amlodipine Besylate (Norvasc -) 5 mg PO DAILY [facility] Last Admin: 09/10/17 11:34 Dose: 5 mg Aspirin (Asa -) 81 mg PO DAILY [facility] Last Admin: 09/10/17 11:34 Dose: 81 mg Atorvastatin Calcium (Lipitor -) 80 mg PO [facility] Heparin Sodium (Porcine) (Heparin -) 1,000 unit IVPUSH PRN PRN PRN Reason: Heparin Heparin Sodium (Porcine) (Heparin -) 5,000 unit IVPUSH PRN PRN PRN Reason: Heparin Azithromycin 500 mg/ Dextrose 250 mls @ 250 mls/hr IVPB DAILY [facility] Last Admin: 09/10/17 12:53 Dose: 250 mls/hr CEFTRIAXONE 1 G/50 ML PREMIX (Ceftriaxone 1 Gm-D5w Bag) 50 mls @ 100 mls/hr IVPB DAILY [facility] Last Admin: 09/10/17 12:17 Dose: 100 mls/hr Heparin Sodium (Porcine) 25, (000 unit/ Sodium Chloride) 500 mls @ 16 mls/hr IV TITR SHAHRAM; 800 UNIT/HR PRN Reason: Protocol Labetalol HCl 1,000 mg/ (Dextrose) 1,000 mls @ 120 mls/hr IV TITR SHAHRAM; 2 MG/MIN PRN Reason: Protocol Losartan Potassium (Cozaar -) 50 mg PO DAILY [facility] Last Admin: 09/10/17 09:35 Dose: 100 mg Nebivolol (Bystolic -) 20 mg PO DAILY [facility] Last Admin: 09/10/17 12:16 Dose: 20 mg Ondansetron HCl (Zofran Injection) 4 mg IVPUSH Q6H PRN PRN Reason: NAUSEA AND/OR VOMITING Last Admin: 09/09/17 21:33 Dose: 4 mg Gen: Mild Confusion and Sleepy Heart: RRR Lung: decreased breath sounds at the bases Abd: soft, nontender Ext: no edema Neuro: mild confusion, minimal left drift. Laboratory Results - last 24 hr 09/09/17 09/09/17 09/09/17 23:30 23:30 23:30 WBC 16.7 H RBC 5.03 Hgb 14.9 Hct 44.1 MCV 87.7 MCH 29.7 MCHC 33.8 RDW 12.8 Plt Count 313 MPV 8.2 Neutrophils % 80.1 Lymphocytes % 5.6 L D Monocytes % 12.5 H Eosinophils % 1.6 D Basophils % 0.2 PT with INR 13.70 H INR 1.21 H PTT (Actin FS) 31.5 Sodium 139 Potassium 2.9 L* Chloride 96 L Carbon Dioxide 31 Anion Gap 12 BUN 13 Creatinine 0.7 Creat Clearance w eGFR > 60 Random Glucose 165 H D Calcium 8.5 Phosphorus 2.9 Magnesium 1.8 Total Bilirubin 1.1 H D AST 27 D ALT 34 D Alkaline Phosphatase 83 Troponin I < 0.02 Total Protein 6.5 Albumin 2.8 L 09/10/17 09/10/17 05:28 05:28 WBC 15.7 H RBC 5.01 Hgb 14.8 Hct 43.8 MCV 87.4 MCH 29.6 MCHC 33.8 RDW 12.4 Plt Count 349 MPV 8.5 Neutrophils % 69.0 Lymphocytes % 8.2 D Monocytes % 20.2 H Eosinophils % 2.2 Basophils % 0.4 PT with INR INR PTT (Actin FS) Sodium 141 Potassium 3.4 L Chloride 98 Carbon Dioxide 30 Anion Gap 13 BUN 16 D Creatinine 0.7 Creat Clearance w eGFR > 60 Random Glucose 114 H D Calcium 8.9 Phosphorus 3.0 Magnesium 2.1 Total Bilirubin 1.1 H AST 30 ALT 31 Alkaline Phosphatase 85 Troponin I Total Protein 6.3 L Albumin 2.8 L A/P Altered Mental Status Acute/Subacute CVA Pneumonia Bilateral Pleural Effusions HTN Hyperlipidemia P AFib Labetalol fo BP control, SBP 130-140 would be reasonable IV Heparin drip per protocol with close monitoring of PTT NSG evaluation to assess for the need for decompressive craniectomy (NSG spoke to the patient and she has deferred at this time surgical intervention) PO as tolerated Aspiration precautions HOB @ 30 degrees SCDs ABX per ID ICU monitoring Dr Quintanilla Critical care time spent in reviewing chart, evaluating patient and formulating plan - 40 minutes.
--- NOTE | 2017-09-10 13:49 | PN ---
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 (short form) - Note 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: Was paged by nurse about blood pressure being very elevated > 180 and patient complaining of head congestion. Stat CT Brain was done and revealed existing ischemic infarcts with progression of edema but no hemorrhagic conversion. Discussed case with Dr. Pérez (neurology) and Dr. Cruz (cardiology). Discussed that it would benefit the patient to be anticoagulated with heparin drip due to the stable nature of stroke. Discussed starting heparin drip with no bolus (patient received subcutaneous heparin for DVT prophylaxis that morning ). Patient's blood pressure will be contolled on nevibolol and titrated with labetalol drip to a goal of <140 SBP. Patient's plan was discussed in detail and both neurology and cardiology are agreeable with plan. Daniel Thapa D.O. PGY-1
[2017-09-10] MEDS: ONDANSETRON 4 MG/2 ML VIAL IVPUSH PRN (13:58)
--- NOTE | 2017-09-10 14:04 | PN ---
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 The patient had an episode of AMS and was found to have a subacute R sided ischemic lesion at her occipital-parietal junction and R cerebellar infarct. She was in the ICU, was stabilized, and sent to med/surg. She was transferred to the ICU today for concern of expanding ischemia/conversion of her ischemia to hemorragic infarct. The patient states that she is not feeling well but has no specific complaints. She denies fever, chills, nausea, vomiting, CP, SOB. OBJECTIVE: Vital Signs Period Temp Pulse Resp BP Sys/Espinoza Pulse Ox Last 24 Hr 97.7 F-98.8 F 76-112 18-20 106-201/64-101 94-94 GENERAL: The patient is awake, alert, in no acute distress. HEAD: Normal with no signs of trauma. EYES: PERRL, extraocular movements intact, sclera anicteric, conjunctiva clear. No ptosis. NECK: Trachea midline, full range of motion, supple. LUNGS: Breath sounds equal, clear to auscultation bilaterally, no wheezes, no crackles, no accessory muscle use. HEART: Regular rate and rhythm, S1, S2 without murmur, rub or gallop. ABDOMEN: Soft, nontender, nondistended, normoactive bowel sounds, no guarding, no rebound, no hepatosplenomegaly, no masses. EXTREMITIES: 2+ pulses, warm, well-perfused, no edema. NEUROLOGICAL: Cranial nerves II through XII grossly intact. Normal speech, gait not observed. PSYCH: Normal mood, normal affect. SKIN: Warm, dry, normal turgor, no rashes or lesions noted Laboratory Results - last 24 hr 09/09/17 09/09/17 09/09/17 23:30 23:30 23:30 WBC 16.7 H RBC 5.03 Hgb 14.9 Hct 44.1 MCV 87.7 MCH 29.7 MCHC 33.8 RDW 12.8 Plt Count 313 MPV 8.2 Neutrophils % 80.1 Lymphocytes % 5.6 L D Monocytes % 12.5 H Eosinophils % 1.6 D Basophils % 0.2 PT with INR 13.70 H INR 1.21 H PTT (Actin FS) 31.5 Sodium 139 Potassium 2.9 L* Chloride 96 L Carbon Dioxide 31 Anion Gap 12 BUN 13 Creatinine 0.7 Creat Clearance w eGFR > 60 Random Glucose 165 H D Calcium 8.5 Phosphorus 2.9 Magnesium 1.8 Total Bilirubin 1.1 H D AST 27 D ALT 34 D Alkaline Phosphatase 83 Troponin I < 0.02 Total Protein 6.5 Albumin 2.8 L 09/10/17 09/10/17 05:28 05:28 WBC 15.7 H RBC 5.01 Hgb 14.8 Hct 43.8 MCV 87.4 MCH 29.6 MCHC 33.8 RDW 12.4 Plt Count 349 MPV 8.5 Neutrophils % 69.0 Lymphocytes % 8.2 D Monocytes % 20.2 H Eosinophils % 2.2 Basophils % 0.4 PT with INR INR PTT (Actin FS) Sodium 141 Potassium 3.4 L Chloride 98 Carbon Dioxide 30 Anion Gap 13 BUN 16 D Creatinine 0.7 Creat Clearance w eGFR > 60 Random Glucose 114 H D Calcium 8.9 Phosphorus 3.0 Magnesium 2.1 Total Bilirubin 1.1 H AST 30 ALT 31 Alkaline Phosphatase 85 Troponin I Total Protein 6.3 L Albumin 2.8 L Active Medications Generic Name Dose Route Start Last Admin Trade Name Freq PRN Reason Stop Dose Admin Acetaminophen 1,000 mg 09/08/17 16:18 Ofirmev Injection - IVPB Q6H PRN FEVER OR PAIN Albuterol Sulfate 1 amp 09/06/17 18:00 09/10/17 05:57 Ventolin 0.083% Nebulizer Soln - NEB 1 amp QIDR SHAHRAM Administration Amlodipine Besylate 5 mg 09/09/17 10:30 09/10/17 11:34 Norvasc - PO 5 mg DAILY SHAHRAM Administration Aspirin 81 mg 09/09/17 23:45 09/10/17 11:34 Asa - PO 81 mg DAILY SHAHRAM Administration Atorvastatin Calcium 80 mg 09/10/17 22:00 Lipitor - PO HS SHAHRAM Heparin Sodium (Porcine) 1,000 unit 09/10/17 11:51 Heparin - IVPUSH PRN PRN Heparin Heparin Sodium (Porcine) 5,000 unit 09/10/17 11:51 Heparin - IVPUSH PRN PRN Heparin Azithromycin 500 mg/ Dextrose 250 mls @ 250 mls/hr 09/06/17 14:33 09/10/17 12 :53 IVPB 250 mls/hr DAILY SHAHRAM Administration CEFTRIAXONE 1 G/50 ML PREMIX 50 mls @ 100 mls/hr 09/07/17 15:00 09/10/17 12: 17 Ceftriaxone 1 Gm-D5w Bag IVPB 100 mls/hr DAILY SHAHRAM Administration Heparin Sodium (Porcine) 25, 500 mls @ 16 mls/hr 09/10/17 12:00 000 unit/ Sodium Chloride IV TITR SHAHRAM Protocol 800 UNIT/HR Labetalol HCl 1,000 mg/ 1,000 mls @ 120 mls/hr 09/10/17 12:00 Dextrose IV TITR SHAHRAM Protocol 2 MG/MIN Losartan Potassium 50 mg 09/09/17 10:30 09/10/17 09:35 Cozaar - PO 100 mg DAILY SHAHRAM Administration Nebivolol 20 mg 09/09/17 18:00 09/10/17 12:16 Bystolic - PO 20 mg DAILY SHAHRAM Administration ASSESSMENT/PLAN: The patient is an 82F with a PMH of HTN and HLD who was found to have an ischemic stroke, which may be converting to hemorrhagic. Neuro: - A&Ox3 - At baseline, somewhat lethargic - Neuro exam grossly negative, however could not assess for gait - CT head from this morning showing evolving infarcts, brought to ICU for closer management CV: - Keep systolic between 130 and 140 - Closely monitor PTT - Continue heparin drip ID: - Azithro and ceftriaxone PPX: - Heparin Dispo: - Continue to monitor in ICU Visit type - Emergency Visit Emergency Visit: Yes ED Registration Date: 09/06/17 Care time: The patient presented to the Emergency Department on the above date and was hospitalized for further evaluation of their emergent condition. - New Patient This patient is new to me today: No - Critical Care Critical Care patient: Yes Total Critical Care Time (in minutes): 39 Critical Care Statement: The care of this patient involved high complexity decision making to prevent further life threatening deterioration of the patient 's condition and/or to evaluate & treat vital organ system(s) failure or risk of failure.
--- NOTE | 2017-09-10 14:44 | CONSULT ---
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 Patient transferred out of ICU once stabilized, however, had hypertensive crisis today and was returned to the ICU for BP management. Patient is somewhat somnolent and is nauseous. CT from today suggests progression of Right Cerebellar infarct with increased mass effect on the fourth ventricle. While the patient does not mandate immediate posterior fossa decompression, I am concerned that she may progress with increased mass effect in this already tight space. Acute deterioration may occur faster than it can be identified, imaged and then therapeutic intervention offered. I briefly discussed this with her and she clearly indicates that she is not currently interested in surgical intervention. I feel that semi-elective posterior fossa decompression has a 2-5% permanent major morbidity or mortality. I worry that if she were to progress, particularly off hours, there would be a 50% chance at poor outcome. At this point, I will defer to the ICU team and Neurology and will remain available should posterior fossa decompression be needed. At this point, hemorrhagic transformation is not obvious, however, anticoagulation which is necessary for her Afib will keep this as a diagnostic possibility.
--- NOTE | 2017-09-10 14:58 | EKG ---
Test Reason : Blood Pressure : / mmHG Vent. Rate : 124 BPM Atrial Rate : 131 BPM P-R Int : 000 ms QRS Dur : 096 ms QT Int : 314 ms P-R-T Axes : 000 056 -86 degrees QTc Int : 451 ms ATRIAL FIBRILLATION VS. ATRIAL FLUTTER WITH RAPID VENTRICULAR RESPONSE WITH PREMATURE VENTRICULAR OR ABERRANTLY CONDUCTED COMPLEXES MODERATE VOLTAGE CRITERIA FOR LVH, MAY BE NORMAL VARIANT MARKED ST ABNORMALITY, POSSIBLE INFERIOR SUBENDOCARDIAL INJURY ABNORMAL ECG WHEN COMPARED WITH ECG OF 07-SEP-2017 20:24, VENT. RATE HAS INCREASED CLINICAL CORRELATION IS RECOMMENDED POSSIBLE SUBENDOCARDIAL INJURY IS SEEN Confirmed by MARILOU GARCIA MD ([id number]) on 09/10/2017 2:58:31 PM Referred By: Confirmed By:MARILOU GARCIA MD
--- NOTE | 2017-09-10 15:44 | CONSULT ---
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 Developed acute Right Cerebellar and Parietal CVA associated with HTN and AFib. CT from today suggests progression of Right Cerebellar infarct with increased mass effect on the fourth ventricle. Pt has been on a soft diet, with thin liquid. She was noted to cough on thin liquids. Pt becomes restless, pulling out IV, nasal 02 when awake.Limited cooperation for me. Refused PO trials. She is verbal and presently seems to have impaired insight. Speech is mildly imprecise. History Source: Medical Record Limitations to Obtaining History: Clinical Condition - Past Medical History ...: No - Smoking History Smoking history: Never smoked Have you smoked in the past 12 months: No If you are a former smoker, when did you quit?: 40yrs - Alcohol/Substance Use Hx Alcohol Use: No History - Admission Reason For Visit: HYPERTENSIVE EMERGENCY - Diagnostics X-ray: Report Reviewed CT Scan: Report Reviewed MRI: Report Reviewed - General Mental Status: Awake and Alert, Able to Follow Commands, Vague, Intermittently Confused Attention: Distractible Ability to Follow Directions: Fair Head/Neck Control: Good - Hearing Hearing: Normal Hearing Aide: No With Patient: No Speech Evaluation - Communication Primary Language: DJIBOUTIAN Communication: Yes: Within Normal Limits Oral Expression Ability: Yes: Mild Impairment - Speech Production Intelligibility: Yes: Mildly Impaired - Speech Characteristics Voice Loudness: Normal Voice Pitch: Yes: Normal Voice Phonatory-based Quality: Yes: Normal Speech Clarity: < 100% Nasal Resonance: Normal Articulation: Yes: Imprecise (mild) - Language/Auditory Comprehension Follows: Yes: 1 Stage Simple Commands - Language/Verbal Expression Able to Communicate Wants and Needs: Yes: WNL Functional Communication Status: Yes: WNL - Swallow Evaluation/Bedside Assessment Current Nutritional Intake: Soft, Thin Liquids Oral Secretions: Yes: WFL Dentition: Yes: Adequate Facial Symmetry at Rest: Symmetrical Laryngeal Movement: Able to Palpate Timing of Swallow: Delayed Coughing/Throat Clear: Yes (thin liquid, per nursing.) Other Findings/Remarks: Pt did cooperate with exam, pulling out iv, restless, impaired insight. Recommendations - Speech Evaluation, Impression/Plan Impression: Pt did cooperate with exam, pulling out iv, restless, impaired insight. Mildly reduced articulatory precision. Swallow mildly delayed in onset , with responsive cough per nursing. - Dysphagia Impressions/Plan Swallowing Skills: Impaired Dysphagia Impressions: Mild Impairment *Silent aspiration: cannot be R/O at bedside Dysphagia Treatment Plan: Small Bites, Chin Tuck/Down, Safe Rate, 1/2 tsp. at a time, Elevate HOB during feed Recommendations: Modified Barium Swallow (if cough, congestion, fever), Other ( monitor po tolerance) - Recommendations Diet Consistency: Other (soft) Medication Administration: Crushed with applesauce Liquids: [place] Thick
[2017-09-10] MEDS ORDERED: LOSARTAN POTASSIUM 100 MG TABLET PO SCH (15:45)
[2017-09-10] MEDS: HEPARIN - 25,000 UNIT in SODIUM CHLORIDE 495 ML IV SCH (16:00)
--- NOTE | 2017-09-10 16:38 | PN ---
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 (short form) - Note 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: Discussed the case with patient's son near her bed in the ICU. Discussed the need for anticoagulation for atrial fibrillation vs risk of bleeding. Similarly , discussed the need to maintain Patient's son understood the risks and agreed with our plan. Asked son about proxy, next of kin, and code status. Son states that he "knows what his mother would want, but doesn't feel the same just yet." Will follow up with ICU team.
[2017-09-10] MEDS: LABETALOL HCL INJECTION 1,000 MG in DEXTROSE 5%-WATER - 800 ML IV SCH (16:58)
--- NOTE | 2017-09-10 17:42 | PN ---
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 (short form) - Note 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: NEUROLOGY FOLLOW-UP: Events and MRI reviewed and discussed with Dr. Sotelo and her son. MRI shows Right cerebellar CVA with some swelling and right to left and upward displacement of the 4th ventricle as well as a distal MCA infarct. BP now controlloed with a wQD=250. Pt. on heparin drip without bolus and remains in AFib. Now: More lethargic than this AM. Still recognizes me than falls back asleep. Coughs on liquids but tolerating apple sauce. EXAM: Left homonomous hemianopsia without facial weakness Moving left side well. Normal reflexes. Downgoing toes. Minimal Right FTN Dystaxia. IMP: Multiple CVA's possibly suggesting multiple embolic events in the presence of new AFib. SUGGEST: Maintain NPO for now. Repeat CT of head (C-) in AM (r/o hydrocephalus). Continue heparin until taking PO well then a NOAC. PT eval and begin Rx at bedside. Thank you very much, Suman Pérez MD
[2017-09-10] MEDS ORDERED: LABETALOL HCL 5 MG/1 ML (100MG/20 ML VIAL) ONE (18:21)
--- NOTE | 2017-09-10 19:19 | PN ---
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 and became lethargic. Transferred to CCU and according to the nurse again developed agitation. and period of confusion. BP has been fluctuating( hypertension). Active Medications Generic Name Dose Route Start Last Admin Trade Name Freq PRN Reason Stop Dose Admin Acetaminophen 1,000 mg 09/08/17 16:18 Ofirmev Injection - IVPB Q6H PRN FEVER OR PAIN Albuterol Sulfate 1 amp 09/06/17 18:00 09/10/17 17:34 Ventolin 0.083% Nebulizer Soln - NEB 1 amp QIDR SHAHRAM Administration Amlodipine Besylate 5 mg 09/09/17 10:30 09/10/17 11:34 Norvasc - PO 5 mg DAILY SHAHRAM Administration Aspirin 81 mg 09/09/17 23:45 09/10/17 11:34 Asa - PO 81 mg DAILY SHAHRAM Administration Atorvastatin Calcium 80 mg 09/10/17 22:00 Lipitor - PO HS SHAHRAM Heparin Sodium (Porcine) 1,000 unit 09/10/17 11:51 Heparin - IVPUSH PRN PRN Heparin Heparin Sodium (Porcine) 5,000 unit 09/10/17 11:51 Heparin - IVPUSH PRN PRN Heparin Azithromycin 500 mg/ Dextrose 250 mls @ 250 mls/hr 09/06/17 14:33 09/10/17 12 :53 IVPB 250 mls/hr DAILY SHAHRAM Administration CEFTRIAXONE 1 G/50 ML PREMIX 50 mls @ 100 mls/hr 09/07/17 15:00 09/10/17 12: 17 Ceftriaxone 1 Gm-D5w Bag IVPB 100 mls/hr DAILY SHAHRAM Administration Heparin Sodium (Porcine) 25, 500 mls @ 16 mls/hr 09/10/17 12:00 09/10/17 16: 00 000 unit/ Sodium Chloride IV 800 unit/hr TITR SHAHRAM 16 mls/hr Protocol Administration 800 UNIT/HR Labetalol HCl 1,000 mg/ 1,000 mls @ 120 mls/hr 09/10/17 12:00 09/10/17 16:58 Dextrose IV Not Given TITR SHAHRAM Protocol 2 MG/MIN Labetalol HCl 10 mg 09/10/17 18:45 Normodyne Injection - IVPUSH Q3H PRN Losartan Potassium 100 mg 09/10/17 18:15 09/10/17 18:16 Cozaar - PO Not Given DAILY SHAHRAM Nebivolol 20 mg 09/09/17 18:00 09/10/17 12:16 Bystolic - PO 20 mg DAILY SHAHRAM Administration 82 year old female is lethargic but arousable. No pallor or cyanosis, clubbing or jaundice. Last Vital Signs Temp Pulse Resp BP Pulse Ox 98.3 F 83 irregular 20 139/72 95 09/10/17 17:45 09/10/17 18:47 09/10/17 18:47 09/10/17 18:47 09/10/17 17:00 Intake & Output 09/10/17 09/10/17 09/10/17 07:59 15:59 23:59 Intake Total 620 72 Balance 620 72 Intake: IV 10 12 SALINE LOCK 10 12 Oral 610 60 Other: Voiding Method Bedpan Bedpan Bedpan # Unmeasured Voids Void 5 1 Bowel Movement No No NECK: Supple, no JVD, No HJR, carotids are 2+, no bruits are heard. HEART: PMI is in 5th ICS, no heaves or thrills. S1 and S2 are normal. No murmur or gallops were heard. LUNGS: Fine creps. at the right base. ABDOMEN: Soft, nontender, no organomegaly or palpable masses felt. EXTREMITIES: No calf tenderness or dependent edema. CAMPAIGN SPECIALIST: Currently asleep. CBC, BMP 09/10/17 05:28 09/10/17 05:28 IMPRESSION: 1. New onset atrial fibrillation with controlled ventricular response. 2. H/o CHF. 3. 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 5. Hypercholesterolemia. 6. History of VPBs. 7. Hypercholestrolemia. 8. Hyperkalemia. 9. Probable LLL pneumonia. Recommendations: 1. IV heparin in progress. 2. Control of BP 3. Correction of K+ 5. F/u BMP. 6. Spoke to son at length regarding status. & Close F/u of APTT. Prognosis: Critical. Time spent 50 Mins. Problem List - Problems (1) Sepsis Code(s): A41.9 - SEPSIS, UNSPECIFIED ORGANISM (2) Accelerated hypertension Code(s): I10 - ESSENTIAL (PRIMARY) HYPERTENSION (3) Ventricular premature beats, contractions, or systoles Code(s): I49.3 - VENTRICULAR PREMATURE DEPOLARIZATION (4) Altered mental status Code(s): R41.82 - ALTERED MENTAL STATUS, UNSPECIFIED Qualifiers: Altered mental status type: transient alteration of awareness Qualified Code(s): R40.4 - Transient alteration of awareness (5) Pneumonia Code(s): J18.9 - PNEUMONIA, UNSPECIFIED ORGANISM Qualifiers: Pneumonia type: due to unspecified organism Laterality: left Lung location: lower lobe of lung Qualified Code(s): J18.1 - Lobar pneumonia, unspecified organism (6) Left ventricular failure Code(s): I50.1 - LEFT VENTRICULAR FAILURE, UNSPECIFIED
[2017-09-10] MEDS: ATORVASTATIN CA 80 MG TABLET (FP) PO SCH (21:42)
[2017-09-10] MEDS: LABETALOL HCL 5 MG/1 ML (100MG/20 ML VIAL) IVPUSH PRN (22:05)
[2017-09-11] MEDS: LABETALOL HCL 5 MG/1 ML (100MG/20 ML VIAL) IVPUSH PRN ×3 (01:15→13:00)
[2017-09-11] MEDS: LABETALOL HCL INJECTION 1,000 MG in DEXTROSE 5%-WATER - 800 ML IV SCH ×2 (05:21→08:31)
[2017-09-11 06:34] LABS: BASO % 0.4 % (0-2.0); EOS % 5.9 % (0-4.5); HEMATOCRIT 44.1 % (32.4-45.2); HEMOGLOBIN 15.1 GM/dL (10.7-15.3); LYMPH % 14.1 % (8-40); MCH 30.2 pg (25.7-33.7); MCHC 34.4 g/dl (32.0-36.0); MEAN CELL VOLUME 87.8 fl (80-96); MEAN PLT VOLUME 8.4 fl (7.5-11.1); MONO % 20.9 % (3.8-10.2); NEUT % 58.7 % (42.8-82.8); PLATELET COUNT 339 K/MM3 (134-434); RBC 5.02 M/mm3 (3.60-5.2); RDW 12.6 % (11.6-15.6); WHITE BLOOD COUNT 13.1 K/mm3 (4.0-10.0)
[2017-09-11 06:40] LABS: INR 1.12 (0.82-1.09); PROTHROMBIN TIME (PATIENT) 12.6 SEC (9.98-11.88)
[2017-09-11] MEDS: ALBUTEROL SO4 0.083% IH SOL 2.5 MG/3 ML VIAL.NEB. NEB SCH ×4 (06:40→23:00)
[2017-09-11 06:43] LABS: ACTIVATED PTT 53.6 SECONDS (26.9-34.4)
[2017-09-11 06:50] LABS: ALBUMIN 2.6 g/dl (3.4-5.0); ANION GAP 10 (8-16); BLOOD UREA NITROGEN 20 mg/dL (7-18); CALCIUM 8.7 mg/dL (8.5-10.1); CHLORIDE 99 mmol/L (98-107); CO2 31 mmol/L (21-32); GLUCOSE,RANDOM 163 mg/dL (74-106); MAGNESIUM 2.1 mg/dL (1.8-2.4); POTASSIUM 3.6 mmol/L (3.5-5.1); SODIUM 140 mmol/L (136-145)
[2017-09-11 06:55] LABS: ALK PHOS 77 U/L (45-117); BILIRUBIN,TOTAL 0.7 mg/dL (0.2-1.0); CREATININE 0.6 mg/dL (0.55-1.02); PHOSPHOROUS 3.6 mg/dL (2.5-4.9); SGOT/AST 30 U/L (15-37); SGPT/ALT 32 U/L (12-78)
--- NOTE | 2017-09-11 08:56 | CONS ---
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 Patient's blood pressure in the emergency room was found to be over 200 systolic, and patient was agitated. CT of the head was done urgently and demonstrated no acute intracranial pathology. Patient was sedated, poorly responsive, and underwent further workup which revealed a large right middle cerebral artery infarct and a right cerebellar acute infarct with other occlusions noted. Patient was diagnosed with atrial fibrillation. Her rate is currently controlled, and she was started on heparin after subsequent CT failed to show a large hemorrhagic component. Patient also evaluated by Speech Pathology and was unable to do a bedside evaluation due to difficulty with cooperation. Apparently, her mental status does fluctuate. Currently, she is on a nectar-thickened liquid diet, a soft diet with medications crushed in applesauce, and close observation for possible modified barium swallow. Last chemistry done this morning: Sodium 140; potassium normalized to 3.6, had been as low as 2.9 on September 09; BUN elevated at 20; normal creatinine, 0.6; total protein 6.0; albumin of 2.6. Serum folate was elevated at 46. Vitamin B12 of 667 and normal. TSH normal at 0.55. CBC showed slight elevation of WBCs at 13.1 but had been 25,000 on September 07; normal and stable hemoglobin, 15.1, and platelet count 339. Patient currently is drowsy and just barely arousable; so, most of the history was taken from her medical record. Apparently, per Dr. Pérez's last note on September 10, patient continued to have a left homonymous hemianopsia without any facial weakness and some dysmetria or dystaxia of the right upper extremity but good strength throughout the left upper extremity. Patient is now seen in rehabilitation evaluation. PAST MEDICAL AND SURGICAL HISTORY: Hypertension, elevated cholesterol. 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 Current function dependent for most ADLs. REVIEW OF SYSTEMS: Not able to be done at this time due to mental status. PHYSICAL EXAMINATION: Patient resting quietly, barely arousable and not cooperative with examination. However, she has no obvious facial weakness, tracks with her eyes but mainly blinks to threat on the left side. She has fairly good movement passively in the upper and lower extremities. Withdraws to pinprick, but a detailed assessment not able to be done at this time due to mental status. OVERALL IMPRESSION: 1. Deficits in mobility and activities of daily living. 2. Multiple cerebrovascular accidents with possible right-sided weakness or dysmetria as well as a homonymous hemianopsia as noted above on the left side but fairly good motor power reported on the left side. 3. Rule out dysphagia. 4. Atrial fibrillation, rate controlled per medical record, on anticoagulation. 5. History of hypertension. 6. Elevated cholesterol. 7. Elevated risk for decubitus ulceration due to immobility. 8. Elevated risk for constipation due to immobility. PLAN/SUGGESTION: 1. Physical therapy at the bedside for range of motion, strengthening, bed mobility, and when appropriate, transfers, gait, balance. 2. Out of bed to chair or sitting up in the ICU as able. 3. Patient is anticoagulated. No further DVT prophylaxis needed. 4. Skin precautions. Avoid heel and sacral pressure. 5. Monitor bowels. 6. Patient is on a soft diet with nectar-thickened liquids. Followup with Speech Pathology as appropriate. 7. Patient is a good candidate for acute inpatient rehabilitation based on her premorbid status and reported ability to cooperate most of the time, clearing mental status. Thank you for this consultation. JANIE WADE M.D. [id number]
[2017-09-11] MEDS ORDERED: AZITHROMYCIN IVPB 500 MG in DEXTROSE 5%-WATER - 250 ML IVPB SCH (10:00)
[2017-09-11] MEDS ORDERED: PT OWN MED DRAWER 7, Y5N ONE (10:16)
--- NOTE | 2017-09-11 10:48 | PN ---
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 (short form) - Note 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: Patient sleeping Nursing reports that she is appropriate when aroused, yet still somnolent. On anticoagulation for Afib Awaiting Head CT from this morning to assess posterior fossa mass effect.
[2017-09-11] MEDS: CEFTRIAXONE 1 G/50 ML PREMIX 50 ML IVPB SCH (11:50)
--- NOTE | 2017-09-11 12:32 | PN ---
Teaching Attending Note Name of Resident: Phoenix Boyle ATTENDING PHYSICIAN STATEMENT I saw and evaluated the patient. I reviewed the resident's note and discussed the case with the resident. I agree with the resident's findings and plan as documented. SUBJECTIVE: Patient seen and examined in the ICU. Lethargic but arousable to voice. Says her name and that she is at [facility]. CT Head: minimally increased edema compression of 4th ventricle Intake & Output 09/08/17 09/09/17 09/10/17 09/11/17 23:59 23:59 23:59 23:59 Intake Total 1004 1404 792 436 Output Total 1400 200 400 Balance -396 1204 392 436 Weight 126 lb 9.6 oz 121 lb 4.8 oz Last Vital Signs Temp Pulse Resp BP Pulse Ox 97.5 F L 69 15 165/90 97 09/11/17 10:00 09/11/17 12:00 09/11/17 12:00 09/11/17 12:00 09/11/17 08:00 Active Medications Acetaminophen (Ofirmev Injection -) 1,000 mg IVPB Q6H PRN PRN Reason: FEVER OR PAIN Albuterol Sulfate (Ventolin 0.083% Nebulizer Soln -) 1 amp NEB QIDR SHAHRAM Last Admin: 09/11/17 11:55 Dose: 1 amp Amlodipine Besylate (Norvasc -) 5 mg PO DAILY SHAHRAM Aspirin (Asa -) 81 mg PO DAILY SHAHRAM Last Admin: 09/10/17 11:34 Dose: 81 mg Atorvastatin Calcium (Lipitor -) 80 mg PO HS SHAHRAM Last Admin: 09/10/17 21:42 Dose: 80 mg Heparin Sodium (Porcine) (Heparin -) 1,000 unit IVPUSH PRN PRN PRN Reason: Heparin Last Admin: 09/11/17 00:58 Dose: 1,000 unit Heparin Sodium (Porcine) (Heparin -) 5,000 unit IVPUSH PRN PRN PRN Reason: Heparin Heparin Sodium (Porcine) 25, (000 unit/ Sodium Chloride) 500 mls @ 16 mls/hr IV TITR SHAHRAM; 800 UNIT/HR PRN Reason: Protocol Last Titration: 09/11/17 00:58 Dose: 900 unit/hr, 18 mls/hr Azithromycin 500 mg/ Dextrose 250 mls @ 250 mls/hr IVPB DAILY SHAHRAM Last Admin: 09/11/17 09:57 Dose: 250 mls/hr CEFTRIAXONE 1 G/50 ML PREMIX (Ceftriaxone 1 Gm-D5w Bag) 50 mls @ 100 mls/hr IVPB DAILY SHAHRAM Last Admin: 09/11/17 11:50 Dose: 100 mls/hr Labetalol HCl 1,000 mg/ (Dextrose) 1,000 mls @ 120 mls/hr IV TITR SHAHRAM; 2 MG/MIN PRN Reason: Protocol Last Admin: 09/11/17 08:31 Dose: Not Given Labetalol HCl (Normodyne Injection -) 10 mg IVPUSH Q3H PRN PRN Reason: HYPERTENSION Last Admin: 09/11/17 10:08 Dose: 10 mg Losartan Potassium (Cozaar -) 100 mg PO DAILY [facility] Last Admin: 09/10/17 18:16 Dose: Not Given Metoclopramide HCl (Reglan Injection -) 10 mg IVPUSH Q6H PRN PRN Reason: NAUSEA AND/OR VOMITING Nebivolol (Bystolic -) 20 mg PO DAILY [facility] Last Admin: 09/10/17 12:16 Dose: 20 mg Gen: Lethargic, but arousable Heart: RRR Lung: decreased breath sounds at the bases Abd: soft, nontender Ext: no edema Neuro: mild confusion, minimal left drift. Laboratory Results - last 24 hr 09/10/17 09/11/17 09/11/17 23:00 06:05 06:05 WBC 13.1 H RBC 5.02 Hgb 15.1 Hct 44.1 MCV 87.8 MCH 30.2 MCHC 34.4 RDW 12.6 Plt Count 339 MPV 8.4 Neutrophils % 58.7 Lymphocytes % 14.1 D Monocytes % 20.9 H Eosinophils % 5.9 H D Basophils % 0.4 PT with INR 12.60 H INR 1.12 PTT (Actin FS) 41.4 H D 53.6 H Sodium Potassium Chloride Carbon Dioxide Anion Gap BUN Creatinine Creat Clearance w eGFR Random Glucose Calcium Phosphorus Magnesium Total Bilirubin AST ALT Alkaline Phosphatase Total Protein Albumin 09/11/17 06:05 WBC RBC Hgb Hct MCV MCH MCHC RDW Plt Count MPV Neutrophils % Lymphocytes % Monocytes % Eosinophils % Basophils % PT with INR INR PTT (Actin FS) Sodium 140 Potassium 3.6 Chloride 99 Carbon Dioxide 31 Anion Gap 10 BUN 20 H D Creatinine 0.6 Creat Clearance w eGFR > 60 Random Glucose 163 H D Calcium 8.7 Phosphorus 3.6 Magnesium 2.1 Total Bilirubin 0.7 D AST 30 ALT 32 Alkaline Phosphatase 77 Total Protein 6.0 L Albumin 2.6 L A/P Altered Mental Status Acute/Subacute CVA Pneumonia Bilateral Pleural Effusions HTN Hyperlipidemia P AFib Titrate BP meds IV Heparin drip per protocol with close monitoring of PTT Holding on decompressive craniectomy Swallow evaluation Aspiration precautions HOB @ 30 degrees SCDs ABX per ID ICU monitoring Dr Quintanilla Critical care time spent in reviewing chart, evaluating patient and formulating plan - 40 minutes.
--- NOTE | 2017-09-11 14:10 | PN ---
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 The patient had an episode of AMS and was found to have a subacute R sided ischemic lesion at her occipital-parietal junction and R cerebellar infarct. She was in the ICU, was stabilized, and sent to med/surg. She was transferred to the ICU today for concern of expanding ischemia/conversion of her ischemia to hemorrhagic infarct. The patient is less arousable today. Overnight, she became very agitated and required limb restraints. She is hemodynamically stable. OBJECTIVE: Vital Signs Period Temp Pulse Resp BP Sys/Espinoza Pulse Ox Last 24 Hr 97.5 F-98.3 F 69-94 15-23 105-215/54-179 95-97 GENERAL: The patient is asleep, in no acute distress. HEAD: Normal with no signs of trauma. EYES: PERRL, extraocular movements intact, sclera anicteric, conjunctiva clear. No ptosis. NECK: Trachea midline, full range of motion, supple. LUNGS: Breath sounds equal, clear to auscultation bilaterally, no wheezes, no crackles, no accessory muscle use. HEART: Regular rate and rhythm, S1, S2 without murmur, rub or gallop. ABDOMEN: Soft, nontender, nondistended, normoactive bowel sounds, no guarding, no rebound, no hepatosplenomegaly, no masses. EXTREMITIES: 2+ pulses, warm, well-perfused, no edema. NEUROLOGICAL: Cranial nerves II through XII grossly intact. Cannot assess speech , gait not observed. PSYCH: Normal mood, normal affect. SKIN: Warm, dry, normal turgor, no rashes or lesions noted Laboratory Results - last 24 hr 09/10/17 09/11/17 09/11/17 23:00 06:05 06:05 WBC 13.1 H RBC 5.02 Hgb 15.1 Hct 44.1 MCV 87.8 MCH 30.2 MCHC 34.4 RDW 12.6 Plt Count 339 MPV 8.4 Neutrophils % 58.7 Lymphocytes % 14.1 D Monocytes % 20.9 H Eosinophils % 5.9 H D Basophils % 0.4 PT with INR 12.60 H INR 1.12 PTT (Actin FS) 41.4 H D 53.6 H Sodium Potassium Chloride Carbon Dioxide Anion Gap BUN Creatinine Creat Clearance w eGFR Random Glucose Calcium Phosphorus Magnesium Total Bilirubin AST ALT Alkaline Phosphatase Total Protein Albumin 09/11/17 06:05 WBC RBC Hgb Hct MCV MCH MCHC RDW Plt Count MPV Neutrophils % Lymphocytes % Monocytes % Eosinophils % Basophils % PT with INR INR PTT (Actin FS) Sodium 140 Potassium 3.6 Chloride 99 Carbon Dioxide 31 Anion Gap 10 BUN 20 H D Creatinine 0.6 Creat Clearance w eGFR > 60 Random Glucose 163 H D Calcium 8.7 Phosphorus 3.6 Magnesium 2.1 Total Bilirubin 0.7 D AST 30 ALT 32 Alkaline Phosphatase 77 Total Protein 6.0 L Albumin 2.6 L Active Medications Generic Name Dose Route Start Last Admin Trade Name Freq PRN Reason Stop Dose Admin Acetaminophen 1,000 mg 09/11/17 07:43 Ofirmev Injection - IVPB Q6H PRN FEVER OR PAIN Albuterol Sulfate 1 amp 09/11/17 12:00 09/11/17 11:55 Ventolin 0.083% Nebulizer Soln - NEB 1 amp QIDR SHAHRAM Administration Amlodipine Besylate 5 mg 09/11/17 10:00 Norvasc - PO DAILY SHAHRAM Aspirin 81 mg 09/09/17 23:45 09/10/17 11:34 Asa - PO 81 mg DAILY SHAHRAM Administration Atorvastatin Calcium 80 mg 09/10/17 22:00 09/10/17 21:42 Lipitor - PO 80 mg HS SHAHRAM Administration Heparin Sodium (Porcine) 1,000 unit 09/10/17 11:51 09/11/17 00:58 Heparin - IVPUSH 1,000 unit PRN PRN Administration Heparin Heparin Sodium (Porcine) 5,000 unit 09/10/17 11:51 Heparin - IVPUSH PRN PRN Heparin Heparin Sodium (Porcine) 25, 500 mls @ 16 mls/hr 09/10/17 12:00 09/11/17 00: 58 000 unit/ Sodium Chloride IV 900 unit/hr TITR SHAHRAM 18 mls/hr Protocol Titration 800 UNIT/HR Azithromycin 500 mg/ Dextrose 250 mls @ 250 mls/hr 09/11/17 10:00 09/11/17 09 :57 IVPB 250 mls/hr DAILY SHAHRAM Administration CEFTRIAXONE 1 G/50 ML PREMIX 50 mls @ 100 mls/hr 09/11/17 10:00 09/11/17 11: 50 Ceftriaxone 1 Gm-D5w Bag IVPB 100 mls/hr DAILY SHAHRAM Administration Labetalol HCl 1,000 mg/ 1,000 mls @ 120 mls/hr 09/11/17 08:28 09/11/17 08:31 Dextrose IV Not Given TITR SHAHRAM Protocol 2 MG/MIN Labetalol HCl 10 mg 09/11/17 08:29 09/11/17 10:08 Normodyne Injection - IVPUSH 10 mg Q3H PRN Administration HYPERTENSION Losartan Potassium 100 mg 09/10/17 18:15 09/10/17 18:16 Cozaar - PO Not Given DAILY SHAHRAM Metoclopramide HCl 10 mg 09/11/17 12:05 Reglan Injection - IVPUSH Q6H PRN NAUSEA AND/OR VOMITING Nebivolol 20 mg 09/09/17 18:00 09/10/17 12:16 Bystolic - PO 20 mg DAILY SHAHRAM Administration ASSESSMENT/PLAN: The patient is an 82F with a PMH of HTN and HLD who was found to have an ischemic stroke, which may be converting to hemorrhagic. Neuro: Expanding infarcts - Repeat head CT today: R cerebral infarct with edema and questionable mass effect since yesterday - Neurosurgeon does not recommend any surgical interventions. - Patient is much more lethargic today - Systolic BP: keep between 130-140 CV: HTN - Labetalol 10mg IV q3H - Amlodipine 5mg qD - Heparin drip - Losartan 100mg PO qD - Bystolic 20mg PO qD Pulm: - CXR shows infiltrates ID: - Azithromycin 500 - Ceftriaxone 1 g PPX: - PTT 53.6 FEN (Fluids, electrolytes, nutrition): - Soft diet Dispo: - Continue ICU monitoring Visit type - Emergency Visit Emergency Visit: Yes ED Registration Date: 09/06/17 Care time: The patient presented to the Emergency Department on the above date and was hospitalized for further evaluation of their emergent condition. - New Patient This patient is new to me today: No - Critical Care Critical Care patient: Yes Total Critical Care Time (in minutes): 43 Critical Care Statement: The care of this patient involved high complexity decision making to prevent further life threatening deterioration of the patient 's condition and/or to evaluate & treat vital organ system(s) failure or risk of failure.
--- NOTE | 2017-09-11 14:40 | PN ---
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 Illness: Lethargic No acute distress Breathing appears non-labored Afebrile WBC slowly trending downward BC no growth - Current Medication List Current Medications: Active Medications Acetaminophen (Ofirmev Injection -) 1,000 mg IVPB Q6H PRN PRN Reason: FEVER OR PAIN Albuterol Sulfate (Ventolin 0.083% Nebulizer Soln -) 1 amp NEB QIDR SHAHRAM Last Admin: 09/11/17 11:55 Dose: 1 amp Amlodipine Besylate (Norvasc -) 5 mg PO DAILY [facility]HRAM Aspirin (Asa -) 81 mg PO DAILY [facility]AM Last Admin: 09/10/17 11:34 Dose: 81 mg Atorvastatin Calcium (Lipitor -) 80 mg PO HS SHAHRAM Last Admin: 09/10/17 21:42 Dose: 80 mg Heparin Sodium (Porcine) (Heparin -) 1,000 unit IVPUSH PRN PRN PRN Reason: Heparin Last Admin: 09/11/17 00:58 Dose: 1,000 unit Heparin Sodium (Porcine) (Heparin -) 5,000 unit IVPUSH PRN PRN PRN Reason: Heparin Heparin Sodium (Porcine) 25, (000 unit/ Sodium Chloride) 500 mls @ 16 mls/hr IV TITR SHAHRAM; 800 UNIT/HR PRN Reason: Protocol Last Titration: 09/11/17 00:58 Dose: 900 unit/hr, 18 mls/hr Azithromycin 500 mg/ Dextrose 250 mls @ 250 mls/hr IVPB DAILY [facility]AM Last Admin: 09/11/17 09:57 Dose: 250 mls/hr CEFTRIAXONE 1 G/50 ML PREMIX (Ceftriaxone 1 Gm-D5w Bag) 50 mls @ 100 mls/hr IVPB DAILY [facility]AM Last Admin: 09/11/17 11:50 Dose: 100 mls/hr Labetalol HCl 1,000 mg/ (Dextrose) 1,000 mls @ 120 mls/hr IV TITR SHAHRAM; 2 MG/MIN PRN Reason: Protocol Last Admin: 09/11/17 08:31 Dose: Not Given Labetalol HCl (Normodyne Injection -) 10 mg IVPUSH Q3H PRN PRN Reason: HYPERTENSION Last Admin: 09/11/17 10:08 Dose: 10 mg Losartan Potassium (Cozaar -) 100 mg PO DAILY [facility]AM Last Admin: 09/10/17 18:16 Dose: Not Given Metoclopramide HCl (Reglan Injection -) 10 mg IVPUSH Q6H PRN PRN Reason: NAUSEA AND/OR VOMITING Nebivolol (Bystolic -) 20 mg PO DAILY [facility]AM Last Admin: 09/10/17 12:16 Dose: 20 mg - Objective Vital Signs: Vital Signs Temperature 97.5 F L 09/11/17 10:00 Pulse Rate 85 09/11/17 13:00 Respiratory Rate 17 09/11/17 13:00 Blood Pressure 158/73 09/11/17 13:00 O2 Sat by Pulse Oximetry (%) 97 09/11/17 09:00 Constitutional: Yes: No Distress Eyes: Yes: Conjunctiva Clear Cardiovascular: Yes: Regular Rate and Rhythm Respiratory: Yes: Diminished Gastrointestinal: Yes: Normal Bowel Sounds, Soft. No: Tenderness Edema: No Labs: CBC, BMP 09/11/17 06:05 09/11/17 06:05 INR, PTT INR 1.12 (0.82-1.09) 09/11/17 06:05 Assessment/Plan Bibasilar pneumonia CVA Leukocytosis- slowly improving Continue empiric ceftriaxone . D/C zithromax
[2017-09-11] MEDS: ASPIRIN 81 MG CHEWABLE TABLETS PO SCH (15:02)
[2017-09-11] MEDS: amLODIPine BESYLATE 5 MG TABLET (FP) PO SCH (15:03)
[2017-09-11] MEDS: METOCLOPRAMIDE HCL INJECTION 10 MG/2 ML VIAL IVPUSH PRN ×2 (15:05→21:35)
[2017-09-11] MEDS: ACETAMINOPHEN 1000 MG/100 ML VIAL (NON FORMULARY) IVPB PRN (15:07)
--- NOTE | 2017-09-11 15:30 | PN ---
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 Speech is clear. Pt told me she was here because of "PNA and a cerebellar infarct." Insight seems of and pt is resistant and not compliant, but improving. She did accept a few sips of seltzer with good overtly tolerance. Case discussed with staff. Concern is insufficient PO acceptance. Swallow seems functional. Encourage supplements , eg room temp ensure pudding? Pt expressed dislike for ensure compact. She wants warm food "egg drop soup." Selected Entries 09/10/17 09/10/17 09/10/17 02:00 04:00 06:00 Lunch Supper Temperature 98.1 F 97.8 F 97.8 F 09/10/17 09/10/17 09/10/17 06:23 08:00 14:06 Lunch 50% Supper Temperature 97.9 F 97.7 F 09/10/17 09/10/17 09/10/17 15:39 17:45 21:15 Lunch 50% Supper 25% Temperature 98.3 F 09/10/17 09/11/17 09/11/17 22:55 02:00 06:00 Lunch Supper Temperature 98.3 F 97.6 F 98 F 09/11/17 10:00 Lunch Supper Temperature 97.5 F L Laboratory Tests 09/07/17 09/08/17 09/09/17 05:55 05:05 05:00 WBC 25.0 H 19.3 H 21.5 H 09/10/17 09/11/17 05:28 06:05 WBC 15.7 H 13.1 H REC: trial of soft solids,thin liquids, supplements as tolerated. Consider Clinimix if not medically contraindicated. Feed only when sufficiently alert MBS can be done to r/o silent aspiration but doubtful.
[2017-09-11] MEDS: NEBIVOLOL 10 MG TABLET (FP) PO SCH ×2 (15:31→17:41)
[2017-09-11] MEDS: POTASSIUM CHLORIDE TABS 20 MEQ TABLET.ER (FP) PO ONE ×2 (15:32→17:41)
--- NOTE | 2017-09-11 16:12 | PN ---
Physical Exam: SUBJECTIVE: Patient seen and examined at bedside. Patient is lethargic, tired, but is able to answer questions. She states that she feels lightheaded, but denies chest pain, SOB, nausea, vomiting, diarrhea. OBJECTIVE: Vital Signs Period Temp Pulse Resp BP Sys/Espinoza Pulse Ox Last 24 Hr 97.5 F-98.3 F 69-92 15-23 105-215/54-179 95-100 GENERAL: The patient is tired but awake, alert and oriented x2. No acute distress HEAD: Normal with no signs of trauma. EYES: PERRL, extraocular movements intact, sclera anicteric, conjunctiva clear. No ptosis. ENT: Ears normal, nares patent, oropharynx clear without exudates, moist mucous membranes. NECK: Trachea midline, full range of motion, supple. LUNGS: Breath sounds equal, clear to auscultation bilaterally, no wheezes, no crackles, no accessory muscle use. HEART: regular rate but irregular rhythem, S1, S2 without murmur, rub or gallop. ABDOMEN: Soft, nontender, nondistended, normoactive bowel sounds, no guarding, no rebound, no hepatosplenomegaly, no masses. EXTREMITIES: 2+ pulses, warm, well-perfused, no edema. NEUROLOGICAL: Cranial nerves II through XII grossly intact. motor strength 5/5 in both upper and lower extremities bilaterally PSYCH: altered, slightly agitated, lethargic SKIN: Warm, dry, normal turgor, no rashes or lesions noted Laboratory Results - last 24 hr 09/10/17 09/11/17 09/11/17 23:00 06:05 06:05 WBC 13.1 H RBC 5.02 Hgb 15.1 Hct 44.1 MCV 87.8 MCH 30.2 MCHC 34.4 RDW 12.6 Plt Count 339 MPV 8.4 Neutrophils % 58.7 Lymphocytes % 14.1 D Monocytes % 20.9 H Eosinophils % 5.9 H D Basophils % 0.4 PT with INR 12.60 H INR 1.12 PTT (Actin FS) 41.4 H D 53.6 H Sodium Potassium Chloride Carbon Dioxide Anion Gap BUN Creatinine Creat Clearance w eGFR Random Glucose Calcium Phosphorus Magnesium Total Bilirubin AST ALT Alkaline Phosphatase Total Protein Albumin 09/11/17 06:05 WBC RBC Hgb Hct MCV MCH MCHC RDW Plt Count MPV Neutrophils % Lymphocytes % Monocytes % Eosinophils % Basophils % PT with INR INR PTT (Actin FS) Sodium 140 Potassium 3.6 Chloride 99 Carbon Dioxide 31 Anion Gap 10 BUN 20 H D Creatinine 0.6 Creat Clearance w eGFR > 60 Random Glucose 163 H D Calcium 8.7 Phosphorus 3.6 Magnesium 2.1 Total Bilirubin 0.7 D AST 30 ALT 32 Alkaline Phosphatase 77 Total Protein 6.0 L Albumin 2.6 L Active Medications Generic Name Dose Route Start Last Admin Trade Name Freq PRN Reason Stop Dose Admin Acetaminophen 1,000 mg 09/11/17 07:43 09/11/17 15:07 Ofirmev Injection - IVPB 1,000 mg Q6H PRN Administration FEVER OR PAIN Albuterol Sulfate 1 amp 09/11/17 12:00 09/11/17 11:55 Ventolin 0.083% Nebulizer Soln - NEB 1 amp QIDR SHAHRAM Administration Amlodipine Besylate 5 mg 09/11/17 10:00 09/11/17 15:03 Norvasc - PO 5 mg DAILY SHAHRAM Administration Aspirin 81 mg 09/09/17 23:45 09/11/17 15:02 Asa - PO 81 mg DAILY SHAHRAM Administration Atorvastatin Calcium 80 mg 09/10/17 22:00 09/10/17 21:42 Lipitor - PO 80 mg HS SHAHRAM Administration Heparin Sodium (Porcine) 1,000 unit 09/10/17 11:51 09/11/17 00:58 Heparin - IVPUSH 1,000 unit PRN PRN Administration Heparin Heparin Sodium (Porcine) 5,000 unit 09/10/17 11:51 Heparin - IVPUSH PRN PRN Heparin Heparin Sodium (Porcine) 25, 500 mls @ 16 mls/hr 09/10/17 12:00 09/11/17 00: 58 000 unit/ Sodium Chloride IV 900 unit/hr TITR SHAHRAM 18 mls/hr Protocol Titration 800 UNIT/HR CEFTRIAXONE 1 G/50 ML PREMIX 50 mls @ 100 mls/hr 09/11/17 10:00 09/11/17 11: 50 Ceftriaxone 1 Gm-D5w Bag IVPB 100 mls/hr DAILY SHAHRAM Administration Labetalol HCl 1,000 mg/ 1,000 mls @ 120 mls/hr 09/11/17 08:28 09/11/17 08:31 Dextrose IV Not Given TITR SHAHRAM Protocol 2 MG/MIN Labetalol HCl 10 mg 09/11/17 08:29 09/11/17 10:08 Normodyne Injection - IVPUSH 10 mg Q3H PRN Administration HYPERTENSION Losartan Potassium 100 mg 09/10/17 18:15 09/10/17 18:16 Cozaar - PO Not Given DAILY SHAHRAM Metoclopramide HCl 10 mg 09/11/17 12:05 09/11/17 15:05 Reglan Injection - IVPUSH 10 mg Q6H PRN Administration NAUSEA AND/OR VOMITING Nebivolol 20 mg 09/09/17 18:00 09/11/17 15:31 Bystolic - PO 20 mg DAILY SHAHRAM Administration MRI BRAIN WITHOUT CONTRAST: 1. Acute right middle cerebral artery territory infarction involving the temporoparietal lobes extending into the posterior insular cortex, with local mass effects as described above. No midline shift or herniation pattern. 2. Acute right PICA territory infarction with local sulcal effacement and partial effacement of the fourth ventricle outflow tract. No cerebellar herniation pattern or hydrocephalus at this time. 3. Generalized, age -related volume loss and moderately severe chronic microvascular ischemic changes with clinical coronary infarct as described above. Focus of hemosiderin in the left cerebellum reflecting the sequela of prior petechial microhemorrhages, likely secondary to hypertension. MRA [place] - 1. Absence of flow in the right posterior-inferior cerebral artery which is most likely due to occlusion given the large right cerebellar infarct. 2. Mild luminal narrowing in the M1 and M2 segments of the right MCA with attenuated flow in the inferior M2 division. No occlusion in the central arteries of the [place]. 3. 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 4. Attenuated flow in the P2 and P3 segments of the right [employer]NAGEMENT may be secondary to slow flow. ASSESSMENT/PLAN: 82 year old female with a past medical history of hypertension, CHF, hyperlipidemia admitted to the ICU for sepsis 2/2 pneumonia, hypertensive emergency, and ischemic stroke. #Atrial Fibrillation: rate is in the 80's, no more palpitations -Patient's aspirin 81mg continued -continue atorvastatin to 80mg -continue nabivolol and labetalol IV PRN in ICU to control rate, can titrate with labetalol drip if necessary to reduce BP #Ischemic Stroke: condition stable, no neurological deficits noted; however patient was lethargic today -new CT head showed no change from yesterday -Continue asa 81mg QD -increase atorvastatin 40mg -patient tolerating PO puree diet -continue heparin drip -keep blood pressure low <140 -appreciate neuro and cardiology recommendations #Sepsis likely 2/2 Pneumonia: -ceftriaxone/azithromycin coverage QD, day #5 #Hypertensive Emergency: BP low today, held labetalol drip -continue labetalol 10mg IV Q6h PRN -continue bystolic (nebivolol) 20mg PO QD -continue cozaar (50mg PO QD) -echocardiogram is within normal limits #Hyperkalemia: potassium repleted -replete as necessary #FEN: -no standing fluids -replete lytes as necessary -puree diet #Prophylaxis -Heparin 5000 Subq TID #Disposition -Continue to monitor on telemetry Visit type - Emergency Visit Emergency Visit: No - New Patient This patient is new to me today: No - Critical Care Critical Care patient: Yes Total Critical Care Time (in minutes): 30 Critical Care Statement: The care of this patient involved high complexity decision making to prevent further life threatening deterioration of the patient 's condition and/or to evaluate & treat vital organ system(s) failure or risk of failure.
--- NOTE | 2017-09-11 17:34 | PN ---
Teaching Attending Note Name of Resident: Daniel Thapa ATTENDING PHYSICIAN STATEMENT I saw and evaluated the patient. I reviewed the resident's note and discussed the case with the resident. I agree with the resident's findings and plan as documented. SUBJECTIVE:lethargic OBJECTIVE: Last Vital Signs Temp Pulse Resp BP Pulse Ox 97.6 F 81 15 134/80 100 09/11/17 13:00 09/11/17 16:00 09/11/17 16:00 09/11/17 16:00 09/11/17 15:19 General lethargic. responds to verbal stimuli but quickly falls asleep CV S1 S2 +, Lungs decreased breath sounds anteriorly Abdomen soft NT/ND Extremities no pedal edema neuro unable to assess as unable to follow complex commands. moves all 4 extremities. sensation grossly intact ASSESSMENT AND PLAN: 82 yo F with PMHx of HTN, HLD, admitted with shortness of breath, likely LLL CAP with sepsis, with component of acute diastolic heart failure, hypertensive urgency and Possible right acute/subacute frontoparietal CVA. 1.Acute hypoxic respiratory failure-, suspect multifactorial from bibasilar PNA/ diastolic CHF. currently saturating well on 2L NC. on Ceftriaxone/azithromycin day 6. will d/c azithromycin. ID and pulmonary on board. 2. Acute metabolic toxic encephalopathy- due to infection and acute CVA. waxes/ wanes. as per staff her mentation is improved since yesterday. will cont frequent neurocheck. hold all sedating medications 3. Acute R PICA with local mass effect- unable to do complete neuro exam due to lethargy. repeat Head CT today to evaluate for worsening edema. neurosurgery on board. declined neurosurgery intervention yesterday when offered. close monitoring. on asa and statin, neuro on board. PT assessment on hold until mental status improves. 4. HTN urgency- was on labetolol ggt. stopped this AM due to period of hypotension. cont labetolol IVP prn 5. Afib- new onset. currenrlt NSR. on heparin ggt. 6. hypokalemia- resolved 7. sustained Vtach- no repeat episodes, Cardio on board 8. DVT ppx- hep ggt 9. MICU monitoring. guarded prognosis The care of this patient involved high complexity decision making to prevent further life threatening deterioration of the patient's condition and/or to evaluate & treat vital organ system(s) failure or risk of failure. 40 minutes
[2017-09-11] MEDS: LOSARTAN POTASSIUM 50 MG TABLET (FP) PO SCH (17:39)
[2017-09-11] MEDS: HEPARIN - 25,000 UNIT in SODIUM CHLORIDE 495 ML IV SCH (17:45)
--- NOTE | 2017-09-11 20:41 | PN ---
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 (short form) - Note 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: NEUROLOGY FOLLOW-UP: Events reviewed and discussed with resident physicians. Level of consciousness waxing and waning today. Afebrile. VSS although systolic BP 170/70 at 8 PM. On Heparin. Repeat CT reviewed: Right MCA territory hypodensity without mass effect. A separate, discrete Right occipital CVA may be present in the Posterior cerebral artery territory. The entiore right cerebellar hemisphere is infarcted and swollen but the study is unchanged from yesterday and there is no evidence of hemorrhage or tonsilar herniation. EXAM: is resting with the eyes closed but quickly opens them on verbal command. O x [facility]. 2016. Fluent speech Left homonomous hemianopsia with normal EOM's. No facial weakness. Gag OK No drift. Normal grasps. Normal ankle dorsiflexion. Toes downgoing. Min R FTN dystaxia Extinguishes DSS left arm. IMP: Doing well after multiple CVA's. Possible embolic shower after new onset AFib. SUGGEST: Continue heparin. Plan to switch to coumadin or NOAC. Physiatry eval and PT Rx. Will gradually mobilize Pt. as per PM&R. Increase PO intake with Pt. seated upright and observed (when fully alert). Thank you very much, Suman Pérez MD
[2017-09-11] MEDS ORDERED: NEBIVOLOL 10 MG TABLET (FP) PO SCH (21:14)
--- NOTE | 2017-09-11 21:23 | PN ---
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 (short form) - Note 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: Seen in CCU. 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 with controlled ventricular response. Active Medications Acetaminophen (Ofirmev Injection -) 1,000 mg IVPB Q6H PRN PRN Reason: FEVER OR PAIN Last Admin: 09/11/17 15:07 Dose: 1,000 mg Albuterol Sulfate (Ventolin 0.083% Nebulizer Soln -) 1 amp NEB QIDR SHAHRAM Last Admin: 09/11/17 18:32 Dose: 1 amp Amlodipine Besylate (Norvasc -) 5 mg PO DAILY SHAHRAM Last Admin: 09/11/17 15:03 Dose: 5 mg Aspirin (Asa -) 81 mg PO DAILY SHAHRAM Last Admin: 09/11/17 15:02 Dose: 81 mg Atorvastatin Calcium (Lipitor -) 80 mg PO HS SHAHRAM Last Admin: 09/10/17 21:42 Dose: 80 mg Heparin Sodium (Porcine) (Heparin -) 1,000 unit IVPUSH PRN PRN PRN Reason: Heparin Last Admin: 09/11/17 00:58 Dose: 1,000 unit Heparin Sodium (Porcine) (Heparin -) 5,000 unit IVPUSH PRN PRN PRN Reason: Heparin Heparin Sodium (Porcine) 25, (000 unit/ Sodium Chloride) 500 mls @ 16 mls/hr IV TITR SHAHRAM; 800 UNIT/HR PRN Reason: Protocol Last Admin: 09/11/17 17:45 Dose: 900 unit/hr, 18 mls/hr CEFTRIAXONE 1 G/50 ML PREMIX (Ceftriaxone 1 Gm-D5w Bag) 50 mls @ 100 mls/hr IVPB DAILY SHAHRAM Last Admin: 09/11/17 11:50 Dose: 100 mls/hr Labetalol HCl 1,000 mg/ (Dextrose) 1,000 mls @ 120 mls/hr IV TITR SHAHRAM; 2 MG/MIN PRN Reason: Protocol Last Admin: 09/11/17 08:31 Dose: Not Given Labetalol HCl (Normodyne Injection -) 10 mg IVPUSH Q3H PRN PRN Reason: HYPERTENSION Last Admin: 09/11/17 13:00 Dose: 10 mg Losartan Potassium (Cozaar -) 100 mg PO DAILY [facility] Last Admin: 09/11/17 17:39 Dose: Not Given Metoclopramide HCl (Reglan Injection -) 10 mg IVPUSH Q6H PRN PRN Reason: NAUSEA AND/OR VOMITING Last Admin: 09/11/17 15:05 Dose: 10 mg Nebivolol (Bystolic -) 20 mg PO DAILY [facility] Last Admin: 09/11/17 17:41 Dose: Not Given 82 year old female is lethargic but arousable. No pallor or cyanosis, clubbing or jaundice. Last Vital Signs Temp Pulse Resp BP Pulse Ox 97.9 F 76 irregularly irregular 19 173/69 96 09/11/17 17:00 09/11/17 20:00 09/11/17 20:00 09/11/17 20:00 09/11/17 20:15 Intake & Output 09/08/17 09/09/17 09/10/17 09/11/17 23:59 23:59 23:59 23:59 Intake Total 1004 5095 591 1568 Output Total 1400 200 400 Balance -396 7548 380 2029 Weight 126 lb 9.6 oz 121 lb 4.8 oz NECK: Supple, no JVD, No HJR, carotids are 2+, no bruits are heard. HEART: PMI is in 5th ICS, no heaves or thrills. S1 and S2 are normal. No murmur or gallops were heard. LUNGS: Fine creps. at the right base. ABDOMEN: Soft, nontender, no organomegaly or palpable masses felt. EXTREMITIES: No calf tenderness or dependent edema. TOBACCO SIZER: Alert and coherent. CBC, BMP 09/11/17 06:05 09/11/17 06:05 IMPRESSION: 1. Hypertension/HCVD, poorly controlled 2. Atrial fib with controlled ventricular response. 3. 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 5. Hypercholesterolemia. 6. History of VPBs. 7. Hypercholestrolemia. 8. Hyperkalemia. 9. Probable LLL pneumonia. 10 S/p CHF. Recommendations: 1. IV heparin in progress. 2. Control of BP 3. Close f/u of K+ 4. When stable, consider renal artery doppler. Prognosis: Critical. . Problem List - Problems (1) Sepsis Code(s): A41.9 - SEPSIS, UNSPECIFIED ORGANISM (2) Accelerated hypertension Code(s): I10 - ESSENTIAL (PRIMARY) HYPERTENSION (3) Ventricular premature beats, contractions, or systoles Code(s): I49.3 - VENTRICULAR PREMATURE DEPOLARIZATION (4) Altered mental status Code(s): R41.82 - ALTERED MENTAL STATUS, UNSPECIFIED Qualifiers: Altered mental status type: transient alteration of awareness Qualified Code(s): R40.4 - Transient alteration of awareness (5) Pneumonia Code(s): J18.9 - PNEUMONIA, UNSPECIFIED ORGANISM Qualifiers: Pneumonia type: due to unspecified organism Laterality: left Lung location: lower lobe of lung Qualified Code(s): J18.1 - Lobar pneumonia, unspecified organism (6) Left ventricular failure Code(s): I50.1 - LEFT VENTRICULAR FAILURE, UNSPECIFIED
[2017-09-11] MEDS: ATORVASTATIN CA 80 MG TABLET (FP) PO SCH (21:35)
[2017-09-11] MEDS: NEBIVOLOL PO SCH (21:37)
[2017-09-12] MEDS: ALBUTEROL SO4 0.083% IH SOL 2.5 MG/3 ML VIAL.NEB. NEB SCH ×3 (06:20→19:17)
[2017-09-12 06:50] LABS: BASO % 0.3 % (0-2.0); EOS % 3.6 % (0-4.5); HEMATOCRIT 43.1 % (32.4-45.2); HEMOGLOBIN 14.8 GM/dL (10.7-15.3); LYMPH % 11.5 % (8-40); MCHC 34.5 g/dl (32.0-36.0); MEAN PLT VOLUME 8.4 fl (7.5-11.1); MONO % 16.6 % (3.8-10.2); PLATELET COUNT 347 K/MM3 (134-434); RBC 4.95 M/mm3 (3.60-5.2); RDW 12.4 % (11.6-15.6); WHITE BLOOD COUNT 15.8 K/mm3 (4.0-10.0)
[2017-09-12 06:58] LABS: INR 1.13 (0.82-1.09); PROTHROMBIN TIME (PATIENT) 12.8 SEC (9.98-11.88)
[2017-09-12 07:11] LABS: ALBUMIN 2.6 g/dl (3.4-5.0); ANION GAP 10 (8-16); BLOOD UREA NITROGEN 24 mg/dL (7-18); CALCIUM 8.3 mg/dL (8.5-10.1); CHLORIDE 100 mmol/L (98-107); CO2 29 mmol/L (21-32); CREATININE 0.7 mg/dL (0.55-1.02); GLUCOSE,RANDOM 137 mg/dL (74-106); MAGNESIUM 2.2 mg/dL (1.8-2.4); PHOSPHOROUS 4.2 mg/dL (2.5-4.9); POTASSIUM 3.4 mmol/L (3.5-5.1); SGOT/AST 22 U/L (15-37); SGPT/ALT 27 U/L (12-78); SODIUM 139 mmol/L (136-145)
[2017-09-12 07:14] LABS: ALK PHOS 75 U/L (45-117); BILIRUBIN,TOTAL 0.6 mg/dL (0.2-1.0); TOT PROT 5.9 g/dl (6.4-8.2)
[2017-09-12] MEDS ORDERED: ONDANSETRON 4 MG/2 ML VIAL ONE ×2 (07:48→14:33)
[2017-09-12] MEDS ORDERED: ONDANSETRON 4 MG/2 ML VIAL IVPB ONE (07:50)
--- NOTE | 2017-09-12 07:50 | PN ---
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, Physician Chief Complaint: ID Complaining of severe nausea Ceftriaxone day 6 therapy PNA - Current Medication List Current Medications: Active Medications Acetaminophen (Ofirmev Injection -) 1,000 mg IVPB Q6H PRN PRN Reason: FEVER OR PAIN Last Admin: 09/11/17 15:07 Dose: 1,000 mg Albuterol Sulfate (Ventolin 0.083% Nebulizer Soln -) 1 amp NEB QIDR SHAHRAM Last Admin: 09/12/17 06:20 Dose: 1 amp Amlodipine Besylate (Norvasc -) 5 mg PO DAILY [facility]AM Last Admin: 09/11/17 15:03 Dose: 5 mg Aspirin (Asa -) 81 mg PO DAILY [facility]AM Last Admin: 09/11/17 15:02 Dose: 81 mg Atorvastatin Calcium (Lipitor -) 80 mg PO HS SHAHRAM Last Admin: 09/11/17 21:35 Dose: 80 mg Heparin Sodium (Porcine) (Heparin -) 1,000 unit IVPUSH PRN PRN PRN Reason: Heparin Last Admin: 09/11/17 00:58 Dose: 1,000 unit Heparin Sodium (Porcine) (Heparin -) 5,000 unit IVPUSH PRN PRN PRN Reason: Heparin Heparin Sodium (Porcine) 25, (000 unit/ Sodium Chloride) 500 mls @ 16 mls/hr IV TITR SHAHRAM; 800 UNIT/HR PRN Reason: Protocol Last Admin: 09/11/17 17:45 Dose: 900 unit/hr, 18 mls/hr CEFTRIAXONE 1 G/50 ML PREMIX (Ceftriaxone 1 Gm-D5w Bag) 50 mls @ 100 mls/hr IVPB DAILY [facility]AM Last Admin: 09/11/17 11:50 Dose: 100 mls/hr Labetalol HCl 1,000 mg/ (Dextrose) 1,000 mls @ 120 mls/hr IV TITR SHAHRAM; 2 MG/MIN PRN Reason: Protocol Last Admin: 09/11/17 08:31 Dose: Not Given Labetalol HCl (Normodyne Injection -) 10 mg IVPUSH Q3H PRN PRN Reason: HYPERTENSION Last Admin: 09/11/17 13:00 Dose: 10 mg Losartan Potassium (Cozaar -) 100 mg PO DAILY [facility]AM Last Admin: 09/11/17 17:39 Dose: Not Given Metoclopramide HCl (Reglan Injection -) 10 mg IVPUSH Q6H PRN PRN Reason: NAUSEA AND/OR VOMITING Last Admin: 09/11/17 21:35 Dose: 10 mg Nebivolol 20 mg/ Nebivolol 5 (mg) 25 mg PO DAILY [facility]AM Last Admin: 09/11/17 21:37 Dose: 25 mg - Objective Vital Signs: Vital Signs Temperature 98.3 F 09/12/17 06:00 Pulse Rate 84 09/12/17 06:00 Respiratory Rate 16 09/12/17 06:00 Blood Pressure 179/75 09/12/17 06:00 O2 Sat by Pulse Oximetry (%) 96 09/11/17 20:15 Constitutional: Yes: Mild Distress Neck: Yes: WNL, Supple Cardiovascular: Yes: Regular Rate and Rhythm, S1, S2 Respiratory: Yes: WNL, Regular, CTA Bilaterally. No: Rales, Rhonchi Gastrointestinal: Yes: Soft. No: Tenderness, Tenderness, Rebound Extremities: No: Cold, Cool, Cyanosis Edema: No Labs: CBC, BMP 09/12/17 06:20 09/12/17 06:20 INR, PTT INR 1.12 (0.82-1.09) 09/11/17 06:05 Problem List - Problems (1) (HFpEF) heart failure with preserved ejection fraction Code(s): I50.30 - UNSPECIFIED DIASTOLIC (CONGESTIVE) HEART FAILURE (2) CVA (cerebral vascular accident) Code(s): I63.9 - CEREBRAL INFARCTION, UNSPECIFIED Qualifiers: CVA mechanism: unspecified Qualified Code(s): I63.9 - Cerebral infarction, unspecified (3) Pneumonia Code(s): J18.9 - PNEUMONIA, UNSPECIFIED ORGANISM Qualifiers: Pneumonia type: due to unspecified organism Laterality: left Lung location: lower lobe of lung Qualified Code(s): J18.1 - Lobar pneumonia, unspecified organism Assessment/Plan Microbiology 09/09/17 09:50 Urine - Urine Clean Catch Legionella Antigen - Final 09/09/17 09:50 Urine - Urine Clean Catch Streptococcus pneumoniae Antigen ( M - Final 09/06/17 16:00 Nasopharyngeal Swab Influenza Types A,B Antigen (TORRES) - Final 09/06/17 16:00 Nasopharyngeal Swab - Final 09/06/17 15:00 Urine - Urine Clean Catch Urine Culture - Final NO GROWTH OBTAINED 09/06/17 12:29 Blood - Peripheral Venous Blood Culture - Final NO GROWTH AFTER 5 DAYS INCUBATION 09/06/17 12:29 Blood - Peripheral Venous Blood Culture - Final NO GROWTH AFTER 5 DAYS INCUBATION Laboratory Tests 09/11/17 09/12/17 09/12/17 06:05 06:20 06:20 WBC 15.8 H Hgb 14.8 Hct 43.1 Plt Count 347 Monocytes % 16.6 H INR 1.12 BUN 24 H Random Glucose 137 H Total Bilirubin 0.6 AST 22 D ALT 27 Alkaline Phosphatase 75 Assessment Acute CVA with complicating pneumonia unspecified etiology Severe nausea ? medication related Plan Continue Ceftriaxone 1 more day only Zofran given x 1 dose José Luis SRINIVASAN
[2017-09-12] MEDS ORDERED: ONDANSETRON 4 MG/2 ML VIAL IVPUSH PRN (08:09)
[2017-09-12] MEDS ORDERED: PT OWN MED DRAWER 7, Y5N ONE ×3 (08:14→14:33)
[2017-09-12] MEDS: LABETALOL HCL 5 MG/1 ML (100MG/20 ML VIAL) IVPUSH PRN ×2 (08:19→19:50)
[2017-09-12] MEDS: ASPIRIN 81 MG CHEWABLE TABLETS PO SCH (08:19)
[2017-09-12] MEDS: amLODIPine BESYLATE 5 MG TABLET (FP) PO SCH (08:19)
[2017-09-12] MEDS: LOSARTAN POTASSIUM 50 MG TABLET (FP) PO SCH (08:19)
[2017-09-12] MEDS ORDERED: LABETALOL HCL 5 MG/1 ML (100MG/20 ML VIAL) IVPUSH ONE (09:00)
[2017-09-12] MEDS: METOCLOPRAMIDE HCL INJECTION 10 MG/2 ML VIAL IVPUSH PRN (09:04)
[2017-09-12] MEDS: CEFTRIAXONE 1 G/50 ML PREMIX 50 ML IVPB SCH (09:07)
[2017-09-12] MEDS ORDERED: HEPARIN NA (PORCINE) 5,000 UNITS/ML 1ML VIAL IVPUSH PRN ×2 (09:10)
[2017-09-12] MEDS ORDERED: DEXAMETHASONE SOD PHOSPHATE 10 MG/1 ML VIAL IVPUSH ONE (09:14)
[2017-09-12] MEDS ORDERED: TRIMETHOBENZAMIDE HCL 200MG/2ML INJ IM ONE (09:17)
[2017-09-12] MEDS ORDERED: DEXAMETHASONE SOD PHOSPHATE 10 MG/1 ML VIAL IVPUSH SCH (10:00)
[2017-09-12] MEDS: NEBIVOLOL PO SCH (10:05)
[2017-09-12] MEDS: HEPARIN INFUSION - 25,000 UNITS/500 ML INFUS.BAG IVPB SCH (10:06)
--- NOTE | 2017-09-12 11:35 | PN ---
Physical Exam: SUBJECTIVE: Patient seen and examined at bedside. patient's blood pressure was 206/89 and was nauseous and vomiting with a headache. She was given labetalol pushes 2x to stabilize her pressure. CT of the head was ordered. Patient denies chest pain, SOB. She is tolerating PO intake. OBJECTIVE: Vital Signs Period Temp Pulse Resp BP Sys/Espinoza Pulse Ox Last 24 Hr 97.6 F-99.3 F 69-87 15-19 119-193/59-90 96-100 GENERAL: The patient is tired but awake, alert and oriented x3. No acute distress. HEAD: Normal with no signs of trauma. LUNGS: Breath sounds equal, clear to auscultation bilaterally, no wheezes, no crackles, no accessory muscle use. HEART: regular rate but irregular rhythem, S1, S2 without murmur, rub or gallop. ABDOMEN: Soft, nontender, nondistended, normoactive bowel sounds, no guarding, no rebound, no hepatosplenomegaly, no masses. EXTREMITIES: 2+ pulses, warm, well-perfused, no edema. NEUROLOGICAL: Cranial nerves II through XII grossly intact. motor strength 5/5 in both upper and lower extremities bilaterally, no sensory deficits noted PSYCH: altered, slightly agitated, lethargic SKIN: Warm, dry, normal turgor, no rashes or lesions noted Laboratory Results - last 24 hr 09/12/17 09/12/17 09/12/17 06:20 06:20 06:20 WBC 15.8 H RBC 4.95 Hgb 14.8 Hct 43.1 MCV 87.0 MCH 30.0 MCHC 34.5 RDW 12.4 Plt Count 347 MPV 8.4 Neutrophils % 68.0 Lymphocytes % 11.5 Monocytes % 16.6 H Eosinophils % 3.6 Basophils % 0.3 PT with INR 12.80 H INR 1.13 PTT (Actin FS) 68.4 H Sodium Potassium Chloride Carbon Dioxide Anion Gap BUN Creatinine Creat Clearance w eGFR Random Glucose Calcium Phosphorus Magnesium Total Bilirubin AST ALT Alkaline Phosphatase Total Protein Albumin 09/12/17 06:20 WBC RBC Hgb Hct MCV MCH MCHC RDW Plt Count MPV Neutrophils % Lymphocytes % Monocytes % Eosinophils % Basophils % PT with INR INR PTT (Actin FS) Sodium 139 Potassium 3.4 L Chloride 100 Carbon Dioxide 29 Anion Gap 10 BUN 24 H Creatinine 0.7 Creat Clearance w eGFR > 60 Random Glucose 137 H Calcium 8.3 L Phosphorus 4.2 Magnesium 2.2 Total Bilirubin 0.6 AST 22 D ALT 27 Alkaline Phosphatase 75 Total Protein 5.9 L Albumin 2.6 L Active Medications Generic Name Dose Route Start Last Admin Trade Name Freq PRN Reason Stop Dose Admin Acetaminophen 1,000 mg 09/11/17 07:43 09/11/17 15:07 Ofirmev Injection - IVPB 1,000 mg Q6H PRN Administration FEVER OR PAIN Albuterol Sulfate 1 amp 09/11/17 12:00 09/12/17 06:20 Ventolin 0.083% Nebulizer Soln - NEB 1 amp QIDR SHAHRAM Administration Amlodipine Besylate 5 mg 09/11/17 10:00 09/12/17 08:19 Norvasc - PO 5 mg DAILY SHAHRAM Administration Aspirin 81 mg 09/09/17 23:45 09/12/17 08:19 Asa - PO 81 mg DAILY SHAHRAM Administration Atorvastatin Calcium 80 mg 09/10/17 22:00 09/11/17 21:35 Lipitor - PO 80 mg HS SHAHRAM Administration Dexamethasone Sodium Phosphate 4 mg 09/12/17 15:00 Decadron Injection - IVPUSH Q6H-IV SHAHRAM Heparin Sodium (Porcine) 1,000 unit 09/12/17 09:10 Heparin - IVPUSH PRN PRN Heparin Heparin Sodium (Porcine) 5,000 unit 09/12/17 09:10 Heparin - IVPUSH PRN PRN Heparin CEFTRIAXONE 1 G/50 ML PREMIX 50 mls @ 100 mls/hr 09/11/17 10:00 09/12/17 09: 07 Ceftriaxone 1 Gm-D5w Bag IVPB 100 mls/hr DAILY SHAHRAM Administration Labetalol HCl 1,000 mg/ 1,000 mls @ 120 mls/hr 09/11/17 08:28 09/11/17 08:31 Dextrose IV Not Given TITR SHAHRAM Protocol 2 MG/MIN Heparin Sodium/Dextrose 25,000 units in 500 mls @ 16 mls/hr 09/12/17 09:15 10:06 Heparin Infusion - IVPB 800 units/hr TITR SHAHRAM 16 mls/hr Protocol Administration 800 UNITS/HR Labetalol HCl 10 mg 09/11/17 08:29 09/12/17 08:19 Normodyne Injection - IVPUSH 10 mg Q3H PRN Administration HYPERTENSION Losartan Potassium 100 mg 09/10/17 18:15 09/12/17 08:19 Cozaar - PO 100 mg DAILY SHAHRAM Administration Metoclopramide HCl 10 mg 09/11/17 12:05 09/12/17 09:04 Reglan Injection - IVPUSH 10 mg Q6H PRN Administration NAUSEA AND/OR VOMITING Nebivolol 20 mg/ Nebivolol 5 25 mg 09/11/17 21:30 09/12/17 10:05 mg PO 25 mg DAILY SHAHRAM Administration Ondansetron HCl 4 mg 09/12/17 08:09 Zofran Injection IVPUSH Q4H PRN NAUSEA AND/OR VOMITING Imaging: MRI BRAIN WITHOUT CONTRAST: 1. Acute right middle cerebral artery territory infarction involving the temporoparietal lobes extending into the posterior insular cortex, with local mass effects as described above. No midline shift or herniation pattern. 2. Acute right PICA territory infarction with local sulcal effacement and partial effacement of the fourth ventricle outflow tract. No cerebellar herniation pattern or hydrocephalus at this time. 3. Generalized, age -related volume loss and moderately severe chronic microvascular ischemic changes with clinical coronary infarct as described above. Focus of hemosiderin in the left cerebellum reflecting the sequela of prior petechial microhemorrhages, likely secondary to hypertension. MRA [place] - 1. Absence of flow in the right posterior-inferior cerebral artery which is most likely due to occlusion given the large right cerebellar infarct. 2. Mild luminal narrowing in the M1 and M2 segments of the right MCA with attenuated flow in the inferior M2 division. No occlusion in the central arteries of the [place]. 3. 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 4. Attenuated flow in the P2 and P3 segments of the right [employer] may be secondary to slow flow. CT HEAD (09/12/17): Interval slight worsening mass effect of previously visualized evolving large right cerebellar subacute infarct with effacement of the right posterior lateral basal cisterns and mild mass effect on the stem/ medulla oblongata as well as mild mass effect slightly narrowing the fourth ventricle. No acute intracranial hemorrhage is identified. Stable involving the right posterior temporal/frontal/parietal subacute infarct. Continued follow-up is needed. ASSESSMENT/PLAN: 82 year old female with a past medical history of hypertension, CHF, hyperlipidemia admitted to the ICU for sepsis 2/2 pneumonia, hypertensive emergency, and ischemic stroke. #Ischemic Stroke: condition stable, no neurological deficits noted; however patient was lethargic today -new CT head showed no change from yesterday -Continue asa 81mg QD -continue atorvastatin 40mg -patient tolerating PO puree diet -continue heparin drip -keep blood pressure low <140 -appreciate neuro, neurosurg, and cardiology recommendations -patient has increasing mass effect, refuses craniotomy to primary team, neurosurg to reassess. #Atrial Fibrillation: rate is in the 80's, no more palpitations -Patient's aspirin 81mg continued -continue atorvastatin 80mg -continue nabivolol and labetalol IV PRN in ICU to control rate, can titrate with labetalol drip if necessary to reduce BP #Sepsis likely 2/2 Pneumonia: -ceftriaxone/azithromycin coverage QD, day #6 #Hypertensive Emergency: BP high today, labetalol was given -continue labetalol 10mg IV Q6h PRN -continue bystolic (nebivolol) 20mg PO QD -continue cozaar (50mg PO QD) -echocardiogram is within normal limits #Hyperkalemia: potassium low -replete as necessary #FEN: -no standing fluids -replete lytes as necessary -puree diet #Prophylaxis -continue IV heparin drip #Disposition -Continue to monitor on telemetry Visit type - Emergency Visit Emergency Visit: No - New Patient This patient is new to me today: No - Critical Care Critical Care patient: No
--- NOTE | 2017-09-12 12:16 | PN ---
Teaching Attending Note Name of Resident: Ashley Carson ATTENDING PHYSICIAN STATEMENT I saw and evaluated the patient. I reviewed the resident's note and discussed the case with the resident. I agree with the resident's findings and plan as documented. SUBJECTIVE: Pt seen and examined in the ICU. More nauseous this AM, repeat CT head showing more mass effect. Arousable, declining surgical intervention. OBJECTIVE: Last Vital Signs Temp Pulse Resp BP Pulse Ox 98.5 F 79 15 193/85 96 09/12/17 10:00 09/12/17 10:00 09/12/17 10:00 09/12/17 10:00 09/11/17 20:15 Intake & Output 09/09/17 09/10/17 09/11/17 09/12/17 23:59 23:59 23:59 23:59 Intake Total 9271 084 4403 216 Output Total 200 400 Balance 0165 605 8919 216 Weight 121 lb 4.8 oz 118 lb 8 oz Gen: somnolent but arousable Heart: irregular Lung: decreased breath sounds at the bases Abd: soft, nontender Ext: no edema CBC, BMP 09/12/17 06:20 09/12/17 06:20 Active Medications Acetaminophen (Ofirmev Injection -) 1,000 mg IVPB Q6H PRN PRN Reason: FEVER OR PAIN Last Admin: 09/11/17 15:07 Dose: 1,000 mg Albuterol Sulfate (Ventolin 0.083% Nebulizer Soln -) 1 amp NEB QIDR [facility] Last Admin: 09/12/17 06:20 Dose: 1 amp Amlodipine Besylate (Norvasc -) 5 mg PO DAILY [facility] Last Admin: 09/12/17 08:19 Dose: 5 mg Aspirin (Asa -) 81 mg PO DAILY [facility] Last Admin: 09/12/17 08:19 Dose: 81 mg Atorvastatin Calcium (Lipitor -) 80 mg PO HS [facility] Last Admin: 09/11/17 21:35 Dose: 80 mg Dexamethasone Sodium Phosphate (Decadron Injection -) 4 mg IVPUSH Q6H-IV SHAHRAM Heparin Sodium (Porcine) (Heparin -) 1,000 unit IVPUSH PRN PRN PRN Reason: Heparin Heparin Sodium (Porcine) (Heparin -) 5,000 unit IVPUSH PRN PRN PRN Reason: Heparin CEFTRIAXONE 1 G/50 ML PREMIX (Ceftriaxone 1 Gm-D5w Bag) 50 mls @ 100 mls/hr IVPB DAILY [facility] Last Admin: 09/12/17 09:07 Dose: 100 mls/hr Labetalol HCl 1,000 mg/ (Dextrose) 1,000 mls @ 120 mls/hr IV TITR SHAHRAM; 2 MG/MIN PRN Reason: Protocol Last Admin: 09/11/17 08:31 Dose: Not Given Heparin Sodium/Dextrose (Heparin Infusion -) 25,000 units in 500 mls @ 16 mls/ hr IVPB TITR SHAHRAM; 800 UNITS/HR PRN Reason: Protocol Last Admin: 09/12/17 10:06 Dose: 800 units/hr, 16 mls/hr Potassium Chloride (Potassium Chloride 10 Meq Premix Ivpb -) 10 meq in 100 mls @ 100 mls/hr IVPB Q60M [facility] Stop: 09/12/17 13:59 Labetalol HCl (Normodyne Injection -) 10 mg IVPUSH Q3H PRN PRN Reason: HYPERTENSION Last Admin: 09/12/17 08:19 Dose: 10 mg Losartan Potassium (Cozaar -) 100 mg PO DAILY [facility] Last Admin: 09/12/17 08:19 Dose: 100 mg Metoclopramide HCl (Reglan Injection -) 10 mg IVPUSH Q6H PRN PRN Reason: NAUSEA AND/OR VOMITING Last Admin: 09/12/17 09:04 Dose: 10 mg Nebivolol 20 mg/ Nebivolol 5 (mg) 25 mg PO DAILY [facility] Last Admin: 09/12/17 10:05 Dose: 25 mg Ondansetron HCl (Zofran Injection) 4 mg IVPUSH Q4H PRN PRN Reason: NAUSEA AND/OR VOMITING ASSESSMENT AND PLAN: Altered Mental Status Acute/Subacute CVA Cerebral Edema Atrial Fibrillation Pneumonia Bilateral Pleural Effusions HTN Hyperlipidemia - rate controlled - continue anticoagulation - start decadron - continue antibiotics - BP control - PO as tolerated - aspiration precautions - DVT prophylaxis - continue ICU monitoring critical care time spent in reviewing chart, evaluating patient and formulating plan 35 min
[2017-09-12] MEDS: KCL 10 MEQ IVPB 10 MEQ/100 ML INFUS.BAG IVPB SCH ×2 (12:19→14:38)
--- NOTE | 2017-09-12 13:12 | PN ---
Physical Exam: SUBJECTIVE: Patient seen and examined patient resting in bed, in mild distress. Afebrile, bp overnight 130 mmgh on average but up to 205 mm hg systolic at 8 am. patient is complaining of new acute onset of severe h/a and hause with 1 ep of NBNB vomiting. Hep gtt held, bp brought down to 175 mm hg with labetalol iv, taken to stat CT head that showed no hemorrhage but increased midline shift. patient started on Decadron IV. Neurosurgery contacted; offering STAT decompressive craneotomy, patient aa0x3 but lethargic, adamantly refusing. OBJECTIVE: Vital Signs Period Temp Pulse Resp BP Sys/Espinoza Pulse Ox Last 24 Hr 97.9 F-99.3 F 75-87 15-19 119-193/59-90 96-100 GENERAL: The patient is awake, alert, and fully oriented, in no mild distress, mildly lethargic. HEAD: Normal with no signs of trauma. EYES: PERRL, extraocular movements intact, sclera anicteric, conjunctiva clear. No ptosis. ENT: moist mucous membranes. NECK: supple. LUNGS: Breath sounds equal, clear to auscultation bilaterally HEART: Regular rate and rhythm, S1, S2 without murmur ABDOMEN: Soft, nontender, nondistended, normoactive bowel sounds, no guarding, no rebound EXTREMITIES: 2+ pulses, warm, well-perfused, no edema. NEUROLOGICAL: Cranial nerves II through XII intact. Normal speech, UE, LE strenght 4+/5 and sensation intact b/l. PSYCH: Normal mood, normal affect. SKIN: Warm, dry Laboratory Results - last 24 hr 09/12/17 09/12/17 09/12/17 06:20 06:20 06:20 WBC 15.8 H RBC 4.95 Hgb 14.8 Hct 43.1 MCV 87.0 MCH 30.0 MCHC 34.5 RDW 12.4 Plt Count 347 MPV 8.4 Neutrophils % 68.0 Lymphocytes % 11.5 Monocytes % 16.6 H Eosinophils % 3.6 Basophils % 0.3 PT with INR 12.80 H INR 1.13 PTT (Actin FS) 68.4 H Sodium Potassium Chloride Carbon Dioxide Anion Gap BUN Creatinine Creat Clearance w eGFR Random Glucose Calcium Phosphorus Magnesium Total Bilirubin AST ALT Alkaline Phosphatase Total Protein Albumin 09/12/17 06:20 WBC RBC Hgb Hct MCV MCH MCHC RDW Plt Count MPV Neutrophils % Lymphocytes % Monocytes % Eosinophils % Basophils % PT with INR INR PTT (Actin FS) Sodium 139 Potassium 3.4 L Chloride 100 Carbon Dioxide 29 Anion Gap 10 BUN 24 H Creatinine 0.7 Creat Clearance w eGFR > 60 Random Glucose 137 H Calcium 8.3 L Phosphorus 4.2 Magnesium 2.2 Total Bilirubin 0.6 AST 22 D ALT 27 Alkaline Phosphatase 75 Total Protein 5.9 L Albumin 2.6 L Active Medications Generic Name Dose Route Start Last Admin Trade Name Freq PRN Reason Stop Dose Admin Acetaminophen 1,000 mg 09/11/17 07:43 09/11/17 15:07 Ofirmev Injection - IVPB 1,000 mg Q6H PRN Administration FEVER OR PAIN Albuterol Sulfate 1 amp 09/11/17 12:00 09/12/17 06:20 Ventolin 0.083% Nebulizer Soln - NEB 1 amp QIDR SHAHRAM Administration Amlodipine Besylate 5 mg 09/11/17 10:00 09/12/17 08:19 Norvasc - PO 5 mg DAILY SHAHRAM Administration Aspirin 81 mg 09/09/17 23:45 09/12/17 08:19 Asa - PO 81 mg DAILY SHAHRAM Administration Atorvastatin Calcium 80 mg 09/10/17 22:00 09/11/17 21:35 Lipitor - PO 80 mg HS SHAHRAM Administration Dexamethasone Sodium Phosphate 4 mg 09/12/17 15:00 Decadron Injection - IVPUSH Q6H-IV SHAHRAM Heparin Sodium (Porcine) 1,000 unit 09/12/17 09:10 Heparin - IVPUSH PRN PRN Heparin Heparin Sodium (Porcine) 5,000 unit 09/12/17 09:10 Heparin - IVPUSH PRN PRN Heparin CEFTRIAXONE 1 G/50 ML PREMIX 50 mls @ 100 mls/hr 09/11/17 10:00 09/12/17 09: 07 Ceftriaxone 1 Gm-D5w Bag IVPB 100 mls/hr DAILY SHAHRAM Administration Labetalol HCl 1,000 mg/ 1,000 mls @ 120 mls/hr 09/11/17 08:28 09/11/17 08:31 Dextrose IV Not Given TITR SHAHRAM Protocol 2 MG/MIN Heparin Sodium/Dextrose 25,000 units in 500 mls @ 16 mls/hr 09/12/17 09:15 10:06 Heparin Infusion - IVPB 800 units/hr TITR SHAHRAM 16 mls/hr Protocol Administration 800 UNITS/HR Potassium Chloride 10 meq in 100 mls @ 100 mls/hr 09/12/17 12:00 09/12/17 12: 19 Potassium Chloride 10 Meq Premix Ivpb - IVPB 09/12/17 13:59 100 mls/hr Q60M SHAHRAM Administration Labetalol HCl 10 mg 09/11/17 08:29 09/12/17 08:19 Normodyne Injection - IVPUSH 10 mg Q3H PRN Administration HYPERTENSION Losartan Potassium 100 mg 09/10/17 18:15 09/12/17 08:19 Cozaar - PO 100 mg DAILY SHAHRAM Administration Metoclopramide HCl 10 mg 09/11/17 12:05 09/12/17 09:04 Reglan Injection - IVPUSH 10 mg Q6H PRN Administration NAUSEA AND/OR VOMITING Nebivolol 20 mg/ Nebivolol 5 25 mg 09/11/17 21:30 09/12/17 10:05 mg PO 25 mg DAILY SHAHRAM Administration Ondansetron HCl 4 mg 09/12/17 08:09 Zofran Injection IVPUSH Q4H PRN NAUSEA AND/OR VOMITING ASSESSMENT/PLAN: 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 Neuro *Acute CVA, today with new H/A and N/V -likely embolic due to new afib. -CT head: Right MCA territory hypodensity, Right occipital CVA may be present in the Posterior cerebral artery territory. entire R cerebellar hemisphere is infarcted. -Repeat CT today: worsening midline shift -Neurosurgery recommends decomplessive craneotomy; patient refuses; family requesting Dr Guy second opinion -BP goal 170-180 mmHg permissive HTN -minimize fluid intake -Decadron IV, no mannitol per neurosurgery recommendation -neuro checks q 1 h -Neuro on case -plavix Pulm *CAP -CXR bibasilar infiltrates -leukocytosis improving 15 -rocephin d2 -cultures negative -ventolin prn CV *new onset a fib -TTE normal RV, LF fxn. -Labetalol 10 IV prn, hold parameters per neuro above -hep full a/c FEN -minimize fluids -replete k -npo Dispo: ICU monitoring Problem List - Problems (1) Altered mental status Code(s): R41.82 - ALTERED MENTAL STATUS, UNSPECIFIED Qualifiers: Altered mental status type: transient alteration of awareness Qualified Code(s): R40.4 - Transient alteration of awareness (2) CVA (cerebral vascular accident) Code(s): I63.9 - CEREBRAL INFARCTION, UNSPECIFIED Qualifiers: CVA mechanism: unspecified Qualified Code(s): I63.9 - Cerebral infarction, unspecified (3) Hypertensive emergency Code(s): I16.1 - HYPERTENSIVE EMERGENCY (4) Pneumonia Code(s): J18.9 - PNEUMONIA, UNSPECIFIED ORGANISM Qualifiers: Pneumonia type: due to unspecified organism Laterality: left Lung location: lower lobe of lung Qualified Code(s): J18.1 - Lobar pneumonia, unspecified organism (5) Transaminitis Code(s): R74.0 - NONSPEC ELEV OF LEVELS OF TRANSAMNS & LACTIC ACID DEHYDRGNSE (6) Hyperkalemia Code(s): E87.5 - HYPERKALEMIA (7) (HFpEF) heart failure with preserved ejection fraction Code(s): I50.30 - UNSPECIFIED DIASTOLIC (CONGESTIVE) HEART FAILURE Visit type - Emergency Visit Emergency Visit: Yes ED Registration Date: 09/06/17 Care time: The patient presented to the Emergency Department on the above date and was hospitalized for further evaluation of their emergent condition. - New Patient This patient is new to me today: No - Critical Care Critical Care patient: Yes Total Critical Care Time (in minutes): 35 Critical Care Statement: The care of this patient involved high complexity decision making to prevent further life threatening deterioration of the patient 's condition and/or to evaluate & treat vital organ system(s) failure or risk of failure. - Discharge Referral Referred to [facility] Med P.C.: Yes
--- NOTE | 2017-09-12 13:23 | PN ---
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, [facility] DEPUTY CLERK - Note 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: More nauseated, refusing food/liquid. CT head showing worsening mass effect.
--- NOTE | 2017-09-12 14:14 | PN ---
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 (short form) - Note 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: Seen in CCU. Patient complaining of nausea and vomiting. according to Neurosurgeon Dr. Mcguire she requires decompression bur she has refused. Remains in atrial fib. with controlled ventricular response. BP continues to fluctuate. Progressive and significant weight loss. persistent hypokalemia. Active Medications Generic Name Dose Route Start Last Admin Trade Name Freq PRN Reason Stop Dose Admin Acetaminophen 1,000 mg 09/11/17 07:43 09/11/17 15:07 Ofirmev Injection - IVPB 1,000 mg Q6H PRN Administration FEVER OR PAIN Albuterol Sulfate 1 amp 09/11/17 12:00 09/12/17 11:45 Ventolin 0.083% Nebulizer Soln - NEB Not Given QIDR SHAHRAM Amlodipine Besylate 5 mg 09/11/17 10:00 09/12/17 08:19 Norvasc - PO 5 mg DAILY SHAHRAM Administration Aspirin 81 mg 09/09/17 23:45 09/12/17 08:19 Asa - PO 81 mg DAILY SHAHRAM Administration Atorvastatin Calcium 80 mg 09/10/17 22:00 09/11/17 21:35 Lipitor - PO 80 mg HS SHAHRAM Administration Dexamethasone Sodium Phosphate 4 mg 09/12/17 15:00 Decadron Injection - IVPUSH Q6H-IV SHAHRAM Heparin Sodium (Porcine) 1,000 unit 09/12/17 09:10 Heparin - IVPUSH PRN PRN Heparin Heparin Sodium (Porcine) 5,000 unit 09/12/17 09:10 Heparin - IVPUSH PRN PRN Heparin CEFTRIAXONE 1 G/50 ML PREMIX 50 mls @ 100 mls/hr 09/11/17 10:00 09/12/17 09: 07 Ceftriaxone 1 Gm-D5w Bag IVPB 100 mls/hr DAILY SHAHRAM Administration Labetalol HCl 1,000 mg/ 1,000 mls @ 120 mls/hr 09/11/17 08:28 09/11/17 08:31 Dextrose IV Not Given TITR SHAHRAM Protocol 2 MG/MIN Heparin Sodium/Dextrose 25,000 units in 500 mls @ 16 mls/hr 09/12/17 09:15 10:06 Heparin Infusion - IVPB 800 units/hr TITR SHAHRAM 16 mls/hr Protocol Administration 800 UNITS/HR Potassium Chloride 10 meq in 100 mls @ 100 mls/hr 09/12/17 12:00 09/12/17 12: 19 Potassium Chloride 10 Meq Premix Ivpb - IVPB 09/12/17 13:59 100 mls/hr Q60M SHAHRAM Administration Labetalol HCl 10 mg 09/11/17 08:29 09/12/17 08:19 Normodyne Injection - IVPUSH 10 mg Q3H PRN Administration HYPERTENSION Losartan Potassium 100 mg 09/10/17 18:15 09/12/17 08:19 Cozaar - PO 100 mg DAILY SHAHRAM Administration Metoclopramide HCl 10 mg 09/11/17 12:05 09/12/17 09:04 Reglan Injection - IVPUSH 10 mg Q6H PRN Administration NAUSEA AND/OR VOMITING Nebivolol 20 mg/ Nebivolol 5 25 mg 09/11/17 21:30 09/12/17 10:05 mg PO 25 mg DAILY SHAHRAM Administration Ondansetron HCl 4 mg 09/12/17 08:09 Zofran Injection IVPUSH Q4H PRN NAUSEA AND/OR VOMITING 82 year old female is lethargic but arousable and alert No pallor or cyanosis, clubbing or jaundice. Last Vital Signs Temp Pulse Resp BP Pulse Ox 98.5 F 82 16 170/68 96 09/12/17 10:00 09/12/17 12:00 09/12/17 12:00 09/12/17 12:00 09/11/17 20:15 Intake & Output 09/09/17 09/10/17 09/11/17 09/12/17 23:59 23:59 23:59 23:59 Intake Total 1176 121 1977 216 Output Total 200 400 Balance 1887 821 4085 216 Weight 121 lb 4.8 oz 118 lb 8 oz NECK: Supple, no JVD, No HJR, carotids are 2+, no bruits are heard. HEART: PMI is in 5th ICS, no heaves or thrills. S1 and S2 are normal. No murmur or gallops were heard. LUNGS: Fine creps. at the right base. ABDOMEN: Soft, nontender, no organomegaly or palpable masses felt. EXTREMITIES: No calf tenderness or dependent edema. SHIFTMAN: lethargic, easily arousable, c/o nausea and vomiting. CBC, BMP 09/12/17 06:20 09/12/17 06:20 Mg. 2.2. IMPRESSION: 1. Hypertension/HCVD, poorly controlled. 2. Atrial fib with controlled ventricular response. 3. 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 5. Hypercholesterolemia. 6. Hypokalemia. 7. Hypercholestrolemia. 8. Nausea and vomiting, etiology: Most likely related to increased intracranial pressure. 9. S/p CHF. Recommendations: 1. K is being corrected. 2. Control of BP. 3. Close f/u of K+ 4. When stable, consider renal artery doppler. 5. TPN, may need central line, doubt she allow a NG tube. Prognosis: Critical. .Time 40 mins. Problem List - Problems (1) Sepsis Code(s): A41.9 - SEPSIS, UNSPECIFIED ORGANISM (2) Accelerated hypertension Code(s): I10 - ESSENTIAL (PRIMARY) HYPERTENSION (3) Ventricular premature beats, contractions, or systoles Code(s): I49.3 - VENTRICULAR PREMATURE DEPOLARIZATION (4) Altered mental status Code(s): R41.82 - ALTERED MENTAL STATUS, UNSPECIFIED Qualifiers: Altered mental status type: transient alteration of awareness Qualified Code(s): R40.4 - Transient alteration of awareness (5) Pneumonia Code(s): J18.9 - PNEUMONIA, UNSPECIFIED ORGANISM Qualifiers: Pneumonia type: due to unspecified organism Laterality: left Lung location: lower lobe of lung Qualified Code(s): J18.1 - Lobar pneumonia, unspecified organism (6) Left ventricular failure Code(s): I50.1 - LEFT VENTRICULAR FAILURE, UNSPECIFIED
--- NOTE | 2017-09-12 14:42 | PN ---
Teaching Attending Note Name of Resident: Daniel Thapa ATTENDING PHYSICIAN STATEMENT I saw and evaluated the patient. I reviewed the resident's note and discussed the case with the resident. I agree with the resident's findings and plan as documented. SUBJECTIVE:c/o nausea and vomiting this AM assoc with GAYLE. no blurred vision, no LOC. OBJECTIVE: Last Vital Signs Temp Pulse Resp BP Pulse Ox 98.5 F 82 16 170/68 96 09/12/17 10:00 09/12/17 12:00 09/12/17 12:00 09/12/17 12:00 09/11/17 20:15 General NAD A&Ox3 CV S1 S2 irregular Lungs decreased breath sounds anteriorly Abdomen soft NT/ND Extremities no pedal edema neuro unable to assess as unable to follow complex commands. moves all 4 extremities. sensation grossly intact ASSESSMENT AND PLAN: 82 yo F with PMHx of HTN, HLD, admitted with shortness of breath, likely LLL CAP with sepsis, with component of acute diastolic heart failure, hypertensive urgency and Possible right acute/subacute frontoparietal CVA. 1.Acute hypoxic respiratory failure-, suspect multifactorial from bibasilar PNA/ diastolic CHF. currently saturating well on 2L NC. on Ceftriaxone day 7. completed 5 day course of azithromycin. ID and pulmonary on board. 2. Acute metabolic toxic encephalopathy- due to infection and acute CVA. more alert today. hold sedating medications. 3. 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 STAT Head CT to be done. brought up possibility of needing CT surgery which pt adamantly denies. explained risks if pressure is increased for . pt responds with "no surgery". neurosurgery notified of change in medical condition and stat CT ordered. will f/u recommendations. 4. HTN urgency-improved on labetolol ggt. will slowly intiate oral mediations to optimize BP. 5. Afib- new onset. rate controlled. on hep ggt. will hold off on starting NOAC for possible intervention. 6. hypokalemia- resolved 7. sustained Vtach- no repeat episodes, Cardio on board 8. DVT ppx- hep ggt 9. MICU monitoring. guarded prognosis. pt refusing neurosurgery. she is alert and oriented. spoke with MICU team and whom will have family meeting. increased risk of mortality if pt refuses surgery. pt verbalized understanding of risks. The care of this patient involved high complexity decision making to prevent further life threatening deterioration of the patient's condition and/or to evaluate & treat vital organ system(s) failure or risk of failure. 40 minutes
[2017-09-12] MEDS ORDERED: DEXAMETHASONE SOD PHOSPHATE 4 MG/1 ML VIAL IVPUSH SCH (15:00)
[2017-09-12] MEDS: ONDANSETRON 4 MG/2 ML VIAL IVPB PRN (15:24)
[2017-09-12] MEDS: LABETALOL HCL INJECTION 1,000 MG in DEXTROSE 5%-WATER - 800 ML IV SCH ×2 (15:25→22:35)
--- NOTE | 2017-09-12 15:55 | PN ---
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 She returned to the ICU with increasing hypertension and progression of her infarcts. On the morning of September 12, 2017, she developed severe nausea and repeat CT shows increased stroke size in the Right Cerebellar hemisphere with increased mass effect upon the fourth ventricle. On several occasions over the past few days, I have discussed the role of posterior fossa decompressive craniectomy with the patient, her sons, and other members of the care team. While there are clear risks associated with semi-elective decompressive posterior fossa craniectomy, the potential for increased mass effect on the brainstem from continued stroke progression is concerning. I described the risks, benefits and alternatives to Right Cerebellar decompression via craniectomy, dural incision and decompression of some of the infarcted cerebellum. I explained that the risks included, but were not limited to: , coma, paralysis, bleeding, infection, CSF leakage possibly requiring spinal drainage or additional surgery and failure to improve. I explained the unique risks to her of thromboembolism associated with cessation of anticoagulation and failure to arrest the vicious cycle of brain swelling and infarction. I offered them the option of seeking another opinion or another surgeon. All questions were answered. The patient is medically savvy and clearly expresses her preference to avoid surgery. Medical management would involve fluid restriction, head elevation for venous drainage and steroids. I feel that she may be approaching the peak level of swelling after which she may recover without surgical intervention, however, I feel that she has very little reserve and that there is at least a 20% chance of increased swelling and that this would be associated with a 50% risk of poor outcome, especially if this were to occur off hours or involve any delay to imaging and treatment. The patient's sons verbalized an understanding of this information and asked intelligent questions. They asked for additional resources for another opinion and I expressed that Drs. Pérez and Wilber Guy would be logical choices to offer this information.
[2017-09-12] MEDS: DEXAMETHASONE SOD PHOSPHATE 4 MG/1 ML VIAL IVPUSH SCH (17:16)
[2017-09-12] MEDS: AMINO ACIDS 4.25%/D5W 1,000 ML IV SCH (17:20)
--- NOTE | 2017-09-12 17:58 | PN ---
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 (short form) - Note 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: NEUROSURGERY SECOND OPINION DICTATED H/o hypertension, hypercholesterolemia and newer onset Afib presented to the ED 6 days ago with shortness of breath and altered mental status with lethargy. She denied chest pain, nausea, vomiting, diarrhea, fevers, chills, abdominal pain, headache, blurry vision, or visual changes initially. Has mild H/A now. Her mental status has improved according to the medical team and son. Son at bedside. PE: 98, 159/85, 97% O2 sat HEENT- NC/AT; Neck- supple; Cor- Irreg; Lungs- CTA B; Abd- benign, + BS; Ext- no sign of DVT Drowsy but easily arousable; oriented x2-3; following command CN- intact; Motor- 4+-5/5 B UE/LE, moderate R dysmetria, mild L hemineglect; Sensation- intact LT; DTR- hyporeflexic; toes equivocal Cr 0.7, BUN 24; Na 134; WBC 15.[address] (08-07); mild-moderate atrophy, mild periventricular small vessel disease ; minimal R lateral posterior temporal/parietal hypodensity MRI Brain (08-08): acute R posterior temporo-parietal ischemia and R PICA ischemia Brain MRA (08-08): R M1-2 diminished flow; R PICA no flow Head CT (08-07; 08-11 through 08-13): evolution of R MCA and R PICA ischemic stroke; increased mass effect/edema of R PICA > R MCA stroke with some mass effect at skull base; no significant midline shift; no hemorrhagic transformation; no HCP; on 09-12 scan with mild posterior basal cistern narrowing and skull base cerebellar edema and mass effect R MCA and R PICA ischemic infarct and no hemorrhagic transformation On IV heparin On Decadron Patient has reportedly been improving neurologically and mass effect/edema has likely peaked as patient is 5+ days after acute ischemic stroke Neurosurgical intervention not recommended given improving neuro status and radiographic evolution frequently lags behind clinical progress; further surgery is at high risks give 2 large recent stroke and pt will likely develop further thromboembolic events off AC Low dose mannitol x 48 hours (12.5 gm iv Q6 hrs) then taper- maintain good perfusion pressure Cont to observe neurological status (mental status, truncal ataxia, CN -VII) HOB elevation 30 degrees Above as well as pros and cons of treatment approaches d/w son
--- NOTE | 2017-09-12 19:25 | PN ---
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 (short form) - Note 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: NEUROLOGY FOLLOW-UP: Events reviewed and discussed with her son. Drs. Collazo and Brooks's consults read and appreciated. Pt was given decadron 10 mg bolus. Tolerating soft diet. PTT creeping up slowly. PTT=68.4 today on 900 units/hr. Now: Awake, alert. Well-oriented. Left homonomous hemianopsia. No facial. Gag present. No drift. Minimal right FTN dystaxia but almost no R HTS dystaxia IMP: Doing extremely well after multiple CVA's. SUGGEST: No indication for cerebellar decompression. Taper and D/C decadron. Physiatry consultation Reduce heparin to 800 units/hr. Start coumadin or NOAC soon. Thank you very much, Suman Pérez MD
[2017-09-12] MEDS: MANNITOL 25% 12.5 GM/50 ML VIAL IVPB SCH (21:07)
[2017-09-12] MEDS: ATORVASTATIN CA 80 MG TABLET (FP) PO SCH (21:07)
[2017-09-13] MEDS: ALBUTEROL SO4 0.083% IH SOL 2.5 MG/3 ML VIAL.NEB. NEB SCH ×4 (00:07→18:13)
[2017-09-13] MEDS ORDERED: PT OWN MED DRAWER 7, Y5N ONE ×3 (00:07→09:57)
[2017-09-13] MEDS: DEXAMETHASONE SOD PHOSPHATE 4 MG/1 ML VIAL IVPUSH SCH ×3 (01:15→17:29)
[2017-09-13] MEDS: AMINO ACIDS 4.25%/D5W 1,000 ML IV SCH (02:11)
[2017-09-13] MEDS: MANNITOL 25% 12.5 GM/50 ML VIAL IVPB SCH ×4 (02:12→21:04)
--- NOTE | 2017-09-13 07:05 | PN ---
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, Physician Chief Complaint: ID Antibiotics day 7 Rx Ceftriaxone Afebrile Neurology notes seen and reviewed - Current Medication List Current Medications: Active Medications Acetaminophen (Ofirmev Injection -) 1,000 mg IVPB Q6H PRN PRN Reason: FEVER OR PAIN Last Admin: 09/11/17 15:07 Dose: 1,000 mg Albuterol Sulfate (Ventolin 0.083% Nebulizer Soln -) 1 amp NEB QIDR SHAHRAM Last Admin: 09/13/17 06:38 Dose: 1 amp Amlodipine Besylate (Norvasc -) 5 mg PO DAILY SHAHRAM Last Admin: 09/12/17 08:19 Dose: 5 mg Aspirin (Asa -) 81 mg PO DAILY SHAHRAM Last Admin: 09/12/17 08:19 Dose: 81 mg Atorvastatin Calcium (Lipitor -) 80 mg PO HS SHAHRAM Last Admin: 09/12/17 21:07 Dose: 80 mg Dexamethasone Sodium Phosphate (Decadron Injection -) 10 mg IVPUSH Q8H-IV SHAHRAM Last Admin: 09/13/17 01:15 Dose: 10 mg Heparin Sodium (Porcine) (Heparin -) 1,000 unit IVPUSH PRN PRN PRN Reason: Heparin Heparin Sodium (Porcine) (Heparin -) 5,000 unit IVPUSH PRN PRN PRN Reason: Heparin CEFTRIAXONE 1 G/50 ML PREMIX (Ceftriaxone 1 Gm-D5w Bag) 50 mls @ 100 mls/hr IVPB DAILY SHAHRAM Last Admin: 09/12/17 09:07 Dose: 100 mls/hr Labetalol HCl 1,000 mg/ (Dextrose) 1,000 mls @ 120 mls/hr IV TITR SHAHRAM; 2 MG/MIN PRN Reason: Protocol Last Titration: 09/13/17 04:00 Dose: 0 mg/min, 0 mls/hr Heparin Sodium/Dextrose (Heparin Infusion -) 25,000 units in 500 mls @ 16 mls/ hr IVPB TITR SHAHRAM; 800 UNITS/HR PRN Reason: Protocol Last Admin: 09/12/17 10:06 Dose: 800 units/hr, 16 mls/hr Amino Acids (Clinimix -) 1,000 mls @ 42 mls/hr IV Q12H SHAHRAM Last Admin: 09/13/17 02:11 Dose: 42 mls/hr Labetalol HCl (Normodyne Injection -) 10 mg IVPUSH Q3H PRN PRN Reason: HYPERTENSION Last Admin: 09/12/17 19:50 Dose: 10 mg Losartan Potassium (Cozaar -) 100 mg PO DAILY SHAHRAM Last Admin: 09/12/17 08:19 Dose: 100 mg Mannitol (Osmitrol -) 12.5 gm IVPB Q6H-IV SHAHRAM Last Admin: 09/13/17 02:12 Dose: 12.5 gm Metoclopramide HCl (Reglan Injection -) 10 mg IVPUSH Q6H PRN PRN Reason: NAUSEA AND/OR VOMITING Last Admin: 09/12/17 09:04 Dose: 10 mg Nebivolol 20 mg/ Nebivolol 5 (mg) 25 mg PO DAILY SHAHRAM Last Admin: 09/12/17 10:05 Dose: 25 mg Ondansetron HCl (Zofran Injection) 8 mg IVPB Q6H PRN PRN Reason: NAUSEA AND/OR VOMITING Last Admin: 09/12/17 15:24 Dose: 8 mg - Objective Vital Signs: Vital Signs Temperature 98.8 F 09/13/17 06:00 Pulse Rate 73 09/13/17 06:00 Respiratory Rate 18 09/13/17 06:00 Blood Pressure 169/65 09/13/17 06:00 O2 Sat by Pulse Oximetry (%) 91 L 09/13/17 00:21 Constitutional: Yes: No Distress Neck: Yes: Supple Cardiovascular: Yes: S1, S2 Respiratory: Yes: WNL, Regular, CTA Bilaterally Gastrointestinal: Yes: Soft. No: Tenderness Edema: No Labs: INR, PTT INR 1.13 (0.82-1.09) 09/12/17 06:20 Problem List - Problems (1) (HFpEF) heart failure with preserved ejection fraction Code(s): I50.30 - UNSPECIFIED DIASTOLIC (CONGESTIVE) HEART FAILURE (2) CVA (cerebral vascular accident) Code(s): I63.9 - CEREBRAL INFARCTION, UNSPECIFIED Qualifiers: CVA mechanism: unspecified Qualified Code(s): I63.9 - Cerebral infarction, unspecified (3) Pneumonia Code(s): J18.9 - PNEUMONIA, UNSPECIFIED ORGANISM Qualifiers: Pneumonia type: due to unspecified organism Laterality: left Lung location: lower lobe of lung Qualified Code(s): J18.1 - Lobar pneumonia, unspecified organism Assessment/Plan Microbiology 09/09/17 09:50 Urine - Urine Clean Catch Legionella Antigen - Final 09/09/17 09:50 Urine - Urine Clean Catch Streptococcus pneumoniae Antigen ( M - Final 09/06/17 16:00 Nasopharyngeal Swab Influenza Types A,B Antigen (TORRES) - Final 09/06/17 16:00 Nasopharyngeal Swab - Final 09/06/17 15:00 Urine - Urine Clean Catch Urine Culture - Final NO GROWTH OBTAINED 09/06/17 12:29 Blood - Peripheral Venous Blood Culture - Final NO GROWTH AFTER 5 DAYS INCUBATION 09/06/17 12:29 Blood - Peripheral Venous Blood Culture - Final NO GROWTH AFTER 5 DAYS INCUBATION Laboratory Tests 09/12/17 06:20 WBC 15.8 H Hgb 14.8 Hct 43.1 Plt Count 347 Assessment Acute MCA stroke admitted complicating pneumonia Day 7 therapy Today last day Plan Continue current therapy Ceftriaxone today then stop Kindly recall if I can be of assistance as no reason to continue follow now José Luis SRINIVASAN
[2017-09-13 07:06] LABS: HEMATOCRIT 44.9 % (32.4-45.2); HEMOGLOBIN 15.2 GM/dL (10.7-15.3); MCH 29.4 pg (25.7-33.7); MCHC 33.9 g/dl (32.0-36.0); MEAN CELL VOLUME 86.9 fl (80-96); MEAN PLT VOLUME 8.1 fl (7.5-11.1); PLATELET COUNT 379 K/MM3 (134-434); RBC 5.16 M/mm3 (3.60-5.2); RDW 12.4 % (11.6-15.6); WHITE BLOOD COUNT 22.8 K/mm3 (4.0-10.0)
[2017-09-13 07:16] LABS: ALBUMIN 2.7 g/dl (3.4-5.0); ANION GAP 11 (8-16); BILIRUBIN,TOTAL 0.5 mg/dL (0.2-1.0); BLOOD UREA NITROGEN 32 mg/dL (7-18); CALCIUM 8.2 mg/dL (8.5-10.1); CHLORIDE 96 mmol/L (98-107); CO2 27 mmol/L (21-32); CREATININE 0.9 mg/dL (0.55-1.02); GLUCOSE,RANDOM 234 mg/dL (74-106); MAGNESIUM 2.2 mg/dL (1.8-2.4); PHOSPHOROUS 3.3 mg/dL (2.5-4.9); POTASSIUM 3.6 mmol/L (3.5-5.1); SGOT/AST 23 U/L (15-37); SGPT/ALT 29 U/L (12-78); SODIUM 134 mmol/L (136-145); TOT PROT 6.2 g/dl (6.4-8.2)
[2017-09-13 07:17] LABS: ALK PHOS 80 U/L (45-117)
[2017-09-13] MEDS ORDERED: CEFTRIAXONE 1 GM in DEXTROSE 5%-WATER - 50 ML IVPB ONE (09:00)
[2017-09-13] MEDS: LABETALOL HCL 5 MG/1 ML (100MG/20 ML VIAL) IVPUSH PRN ×2 (09:37→19:48)
[2017-09-13] MEDS: METOCLOPRAMIDE HCL INJECTION 10 MG/2 ML VIAL IVPUSH PRN ×2 (09:38→15:57)
[2017-09-13] MEDS: ASPIRIN 81 MG CHEWABLE TABLETS PO SCH ×2 (09:47→09:49)
[2017-09-13] MEDS: LOSARTAN POTASSIUM 50 MG TABLET (FP) PO SCH (09:48)
[2017-09-13] MEDS: amLODIPine BESYLATE 5 MG TABLET (FP) PO SCH (09:49)
[2017-09-13] MEDS: HEPARIN INFUSION - 25,000 UNITS/500 ML INFUS.BAG IVPB SCH (09:55)
[2017-09-13] MEDS: NEBIVOLOL PO SCH (09:58)
[2017-09-13 11:00] LABS: PLATELET ESTIMATE ADEQUATE
[2017-09-13] MEDS ORDERED: CEFTRIAXONE 1 G/50 ML PREMIX 50 ML IVPB ONE (11:40)
[2017-09-13] MEDS: SUCRALFATE 1 GM/10 ML UNIT DOSE CUPS PO SCH ×2 (12:00→21:04)
--- NOTE | 2017-09-13 12:07 | PN ---
Teaching Attending Note Name of Resident: Phoenix Boyle ATTENDING PHYSICIAN STATEMENT I saw and evaluated the patient. I reviewed the resident's note and discussed the case with the resident. I agree with the resident's findings and plan as documented. SUBJECTIVE: Patient seen and examined in the ICU. Sleepy but arousable. Says her name and that she is at [facility] and August 2017. Seems appropriate today. Reports persistent nausea. CT Head (09/12): Some increase in edema with mass effect Intake & Output 09/10/17 09/11/17 09/12/17 09/13/17 23:59 23:59 23:59 23:59 Intake Total 792 1112 1122 1280 Output Total 400 200 Balance 392 2141 404 1963 Weight 121 lb 4.8 oz 118 lb 8 oz 117 lb 11.2 oz Last Vital Signs Temp Pulse Resp BP Pulse Ox 98.8 F 79 18 166/69 95 09/13/17 06:00 09/13/17 10:24 09/13/17 09:38 09/13/17 10:24 09/13/17 10:22 Active Medications Acetaminophen (Ofirmev Injection -) 1,000 mg IVPB Q6H PRN PRN Reason: FEVER OR PAIN Last Admin: 09/11/17 15:07 Dose: 1,000 mg Albuterol Sulfate (Ventolin 0.083% Nebulizer Soln -) 1 amp NEB QIDR [facility] Last Admin: 09/13/17 06:38 Dose: 1 amp Amlodipine Besylate (Norvasc -) 5 mg PO DAILY [facility] Last Admin: 09/13/17 09:49 Dose: 5 mg Aspirin (Asa -) 81 mg PO DAILY SHAHRAM Last Admin: 09/13/17 09:49 Dose: 81 mg Atorvastatin Calcium (Lipitor -) 80 mg PO HS SHAHRAM Last Admin: 09/12/17 21:07 Dose: 80 mg Dexamethasone Sodium Phosphate (Decadron Injection -) 10 mg IVPUSH Q8H-IV SHAHRAM Last Admin: 09/13/17 09:49 Dose: 10 mg Heparin Sodium (Porcine) (Heparin -) 1,000 unit IVPUSH PRN PRN PRN Reason: Heparin Heparin Sodium (Porcine) (Heparin -) 5,000 unit IVPUSH PRN PRN PRN Reason: Heparin Labetalol HCl 1,000 mg/ (Dextrose) 1,000 mls @ 120 mls/hr IV TITR SHAHRAM; 2 MG/MIN PRN Reason: Protocol Last Titration: 09/13/17 04:00 Dose: 0 mg/min, 0 mls/hr Heparin Sodium/Dextrose (Heparin Infusion -) 25,000 units in 500 mls @ 16 mls/ hr IVPB TITR SHAHRAM; 800 UNITS/HR PRN Reason: Protocol Last Admin: 09/13/17 09:55 Dose: 900 units/hr, 18 mls/hr CEFTRIAXONE 1 G/50 ML PREMIX (Ceftriaxone 1 Gm-D5w Bag) 50 mls @ 100 mls/hr IVPB ONCE ONE Stop: 09/13/17 12:09 Labetalol HCl (Normodyne Injection -) 10 mg IVPUSH Q3H PRN PRN Reason: HYPERTENSION Last Admin: 09/13/17 09:37 Dose: 10 mg Losartan Potassium (Cozaar -) 100 mg PO DAILY SHAHRAM Last Admin: 09/13/17 09:48 Dose: 100 mg Mannitol (Osmitrol -) 12.5 gm IVPB Q6H-IV SHAHRAM Last Admin: 09/13/17 09:50 Dose: 12.5 gm Metoclopramide HCl (Reglan Injection -) 10 mg IVPUSH Q6H PRN PRN Reason: NAUSEA AND/OR VOMITING Last Admin: 09/13/17 09:38 Dose: 10 mg Nebivolol 20 mg/ Nebivolol 5 (mg) 25 mg PO DAILY SHAHRAM Last Admin: 09/13/17 09:58 Dose: 25 mg Ondansetron HCl (Zofran Injection) 8 mg IVPB Q6H PRN PRN Reason: NAUSEA AND/OR VOMITING Last Admin: 09/12/17 15:24 Dose: 8 mg Sucralfate (Carafate Oral Suspension -) 1 gm PO BID SHAHRAM Gen: Sleepy but easily arousable Heart: RRR Lung: decreased breath sounds at the bases Abd: soft, nontender Ext: no edema Neuro: mild confusion, minimal left drift. Laboratory Results - last 24 hr 09/13/17 09/13/17 09/13/17 05:35 05:35 05:35 WBC 22.8 H D RBC 5.16 Hgb 15.2 Hct 44.9 MCV 86.9 MCH 29.4 MCHC 33.9 RDW 12.4 Plt Count 379 MPV 8.1 Total Counted 100 Neutrophils % No Result Required. Neutrophils % (Manual) 87.0 H Lymphocytes % No Result Required. Lymphocytes % (Manual) 5.0 L D Monocytes % (Manual) 8 Platelet Estimate Adequate PTT (Actin FS) 50.9 H Sodium 134 L Potassium 3.6 Chloride 96 L Carbon Dioxide 27 Anion Gap 11 BUN 32 H D Creatinine 0.9 D Creat Clearance w eGFR 59.65 Random Glucose 234 H D Calcium 8.2 L Phosphorus 3.3 D Magnesium 2.2 Total Bilirubin 0.5 AST 23 ALT 29 Alkaline Phosphatase 80 Total Protein 6.2 L Albumin 2.7 L A/P Altered Mental Status Acute/Subacute CVA Pneumonia Bilateral Pleural Effusions HTN Hyperlipidemia P AFib Titrate BP meds IV Heparin drip per protocol with close monitoring of PTT : will likely start on NOAC Holding on decompressive craniectomy (Neurosurgery second opinion noted) Noted low dose mannitol was ordered PO as tolerated Aspiration precautions HOB @ 30 degrees SCDs ABX per ID (today is last day of coverage) ICU monitoring Dr Quintanilla Critical care time spent in reviewing chart, evaluating patient and formulating plan - 40 minutes.
--- NOTE | 2017-09-13 12:29 | PN ---
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 The patient had an episode of AMS and was found to have a subacute R sided ischemic lesion at her occipital-parietal junction and R cerebellar infarct. She was in the ICU, was stabilized, and sent to med/surg. She had an acute mental status change and had a stat CT done which showed a slightly worsening mass effect. She is hemodynamically stable, although her BP has been fluctuating. OBJECTIVE: Vital Signs Period Temp Pulse Resp BP Sys/Espinoza Pulse Ox Last 24 Hr 98 F-98.8 F 68-90 15-24 116-210/46-91 91-95 GENERAL: The patient is awake, alert, and fully oriented, in no acute distress. HEAD: Normal with no signs of trauma. EYES: PERRL, extraocular movements intact, sclera anicteric, conjunctiva clear. No ptosis. NECK: Trachea midline, full range of motion, supple. LUNGS: Breath sounds decreased in R lung field, coarse breath sounds b/l, no accessory muscle use. HEART: Irregular rate and rhythm, S1, S2 without murmur, rub or gallop. ABDOMEN: Soft, nontender, nondistended, normoactive bowel sounds, no guarding, no rebound, no hepatosplenomegaly, no masses. EXTREMITIES: 2+ pulses, warm, well-perfused, no edema. NEUROLOGICAL: Cranial nerves II through XII grossly intact. Normal speech, gait not observed. PSYCH: Normal mood, normal affect. SKIN: Warm, dry, normal turgor, no rashes or lesions noted Laboratory Results - last 24 hr 09/13/17 09/13/17 09/13/17 05:35 05:35 05:35 WBC 22.8 H D RBC 5.16 Hgb 15.2 Hct 44.9 MCV 86.9 MCH 29.4 MCHC 33.9 RDW 12.4 Plt Count 379 MPV 8.1 Total Counted 100 Neutrophils % No Result Required. Neutrophils % (Manual) 87.0 H Lymphocytes % No Result Required. Lymphocytes % (Manual) 5.0 L D Monocytes % (Manual) 8 Platelet Estimate Adequate PTT (Actin FS) 50.9 H Sodium 134 L Potassium 3.6 Chloride 96 L Carbon Dioxide 27 Anion Gap 11 BUN 32 H D Creatinine 0.9 D Creat Clearance w eGFR 59.65 Random Glucose 234 H D Calcium 8.2 L Phosphorus 3.3 D Magnesium 2.2 Total Bilirubin 0.5 AST 23 ALT 29 Alkaline Phosphatase 80 Total Protein 6.2 L Albumin 2.7 L Active Medications Generic Name Dose Route Start Last Admin Trade Name Freq PRN Reason Stop Dose Admin Acetaminophen 1,000 mg 09/11/17 07:43 09/11/17 15:07 Ofirmev Injection - IVPB 1,000 mg Q6H PRN Administration FEVER OR PAIN Albuterol Sulfate 1 amp 09/11/17 12:00 09/13/17 06:38 Ventolin 0.083% Nebulizer Soln - NEB 1 amp QIDR SHAHRAM Administration Amlodipine Besylate 5 mg 09/11/17 10:00 09/13/17 09:49 Norvasc - PO 5 mg DAILY SHAHRAM Administration Aspirin 81 mg 09/09/17 23:45 09/13/17 09:49 Asa - PO 81 mg DAILY SHAHRAM Administration Atorvastatin Calcium 80 mg 09/10/17 22:00 09/12/17 21:07 Lipitor - PO 80 mg HS SHAHRAM Administration Dexamethasone Sodium Phosphate 10 mg 09/12/17 18:00 09/13/17 09:49 Decadron Injection - IVPUSH 10 mg Q8H-IV SHAHRAM Administration Heparin Sodium (Porcine) 1,000 unit 09/12/17 09:10 Heparin - IVPUSH PRN PRN Heparin Heparin Sodium (Porcine) 5,000 unit 09/12/17 09:10 Heparin - IVPUSH PRN PRN Heparin Labetalol HCl 1,000 mg/ 1,000 mls @ 120 mls/hr 09/11/17 08:28 09/13/17 04:00 Dextrose IV 0 mg/min TITR SHAHRAM 0 mls/hr Protocol Titration 2 MG/MIN Heparin Sodium/Dextrose 25,000 units in 500 mls @ 16 mls/hr 09/12/17 09:15 09:55 Heparin Infusion - IVPB 900 units/hr TITR SHAHRAM 18 mls/hr Protocol Administration 800 UNITS/HR Labetalol HCl 10 mg 09/11/17 08:29 09/13/17 09:37 Normodyne Injection - IVPUSH 10 mg Q3H PRN Administration HYPERTENSION Losartan Potassium 100 mg 09/10/17 18:15 09/13/17 09:48 Cozaar - PO 100 mg DAILY SHAHRAM Administration Mannitol 12.5 gm 09/12/17 20:30 09/13/17 09:50 Osmitrol - IVPB 12.5 gm Q6H-IV SHAHRAM Administration Metoclopramide HCl 10 mg 09/11/17 12:05 09/13/17 09:38 Reglan Injection - IVPUSH 10 mg Q6H PRN Administration NAUSEA AND/OR VOMITING Nebivolol 20 mg/ Nebivolol 5 25 mg 09/11/17 21:30 09/13/17 09:58 mg PO 25 mg DAILY SHAHRAM Administration Ondansetron HCl 8 mg 09/12/17 14:44 09/12/17 15:24 Zofran Injection IVPB 8 mg Q6H PRN Administration NAUSEA AND/OR VOMITING Sucralfate 1 gm 09/13/17 10:15 Carafate Oral Suspension - PO BID SHAHRAM ASSESSMENT/PLAN: 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 Neuro: Acute/subacute CVA with increased nausea - Likely embolic due to new afib. - CT head: Slightly worsening mass effect from R cerebellar subacute infarct - Repeat CT today: worsening midline shift - Neurosurgery recommends decompressive craneotomy; patient refuses; Dr. Guy does not recommend a decompressive craniotomy - BP goal 170-180 mmHg permissive HTN - Minimize fluid intake - Decadron IV - Will add Mannitol 12.5g once - Neuro checks q 1 h - Neuro on case - Plavix Pulm: CAP - CXR bibasilar infiltrates - Leukocytosis worsenin from 15.8 - Continuing rocephin - Cultures negative - Ventolin prn CV: New onset a-fib -TTE normal RV, LF fxn. -Labetalol 10 IV prn, hold parameters per neuro above -hep full a/c FEN: - Carafate for nausea with reglan - Minimize fluids - Replete k - Soft diet, can do puree diet depending on patient's desires Dispo: - ICU monitoring Visit type - Emergency Visit Emergency Visit: Yes ED Registration Date: 09/06/17 Care time: The patient presented to the Emergency Department on the above date and was hospitalized for further evaluation of their emergent condition. - New Patient This patient is new to me today: No - Critical Care Critical Care patient: Yes Total Critical Care Time (in minutes): 49 Critical Care Statement: The care of this patient involved high complexity decision making to prevent further life threatening deterioration of the patient 's condition and/or to evaluate & treat vital organ system(s) failure or risk of failure.
--- NOTE | 2017-09-13 12:42 | PN ---
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, [employer] - Note 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: Selected Entries 09/12/17 09/12/17 09/12/17 11:00 14:00 18:30 Breakfast 25% 0 Lunch 0 Supper 0 Temperature 09/13/17 09/13/17 09/13/17 00:21 02:00 06:00 Breakfast Lunch Supper 0 Temperature 98.2 F 98.8 F Medical notes reviewed and case discussed with staff. Sleepy but arousable, appropriate, speech cleart. Swallowing overtly intact. Not accepting any food, just club soda, c/o nausea. Discussed with pt that empty stomach with meds may be contributing to nausea and she agreed to try saltines, which nursing will provide when she is more alert. Keep hob somewhat elevated after po intake.
--- NOTE | 2017-09-13 17:07 | PN ---
Teaching Attending Note Name of Resident: Daniel Thapa ATTENDING PHYSICIAN STATEMENT I saw and evaluated the patient. I reviewed the resident's note and discussed the case with the resident. I agree with the resident's findings and plan as documented. SUBJECTIVE:c/o nausea. no vomiting or GAYLE. has not attempted to eat anything. denies CP, SOB, fever, chills, N/V/C/D OBJECTIVE: Last Vital Signs Temp Pulse Resp BP Pulse Ox 98.8 F 79 18 166/69 95 09/13/17 06:00 09/13/17 10:24 09/13/17 09:38 09/13/17 10:24 09/13/17 10:22 General NAD A&Ox3 CV S1 S2 irregular Lungs decreased breath sounds anteriorly Abdomen soft NT/ND Extremities no pedal edema neuro moves all 4 extremities. sensation grossly intact ASSESSMENT AND PLAN: 82 yo F with PMHx of HTN, HLD, admitted with shortness of breath, likely LLL CAP with sepsis, with component of acute diastolic heart failure, hypertensive urgency and Possible right acute/subacute frontoparietal CVA. 1.Acute hypoxic respiratory failure-, suspect multifactorial from bibasilar PNA/ diastolic CHF. currently saturating well on 2L NC. Completes abx course today. increase leukocytosis likely due to steroids and not infectious 2. Acute metabolic toxic encephalopathy- due to infection and acute CVA. more alert today. hold sedating medications. 3. 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 GAYLE has resolved and continus to be nauseated. second neurosurg opionon no need to acute surgery. recommends mannitol in addition to dex. will cont both for now. will slowly decrease as nausea improves. frequent neurochecks. 4. HTN urgency-improved off labetolol ggt. cont labetolol IVP for elevated BP. will transtion to po once able to tolerate po. 5. Nausea- possible due to increased intracranial pressure vs HTN. refusing NGT placement. swallow evaluation. encourage po intake. start tigan prn 5. Afib- new onset. rate controlled. on hep ggt. will hold off on starting NOAC once medically optimized. 6. hypokalemia-improved 7. sustained Vtach- no repeat episodes, Cardio on board 8. DVT ppx- hep ggt 9. MICU monitoring. guarded prognosis. pt refusing neurosurgery. now DNI The care of this patient involved high complexity decision making to prevent further life threatening deterioration of the patient's condition and/or to evaluate & treat vital organ system(s) failure or risk of failure. 40 minutes
[2017-09-13] MEDS: LABETALOL HCL INJECTION 1,000 MG in DEXTROSE 5%-WATER - 800 ML IV SCH (17:27)
--- NOTE | 2017-09-13 17:39 | CONS ---
DATE OF CONSULTATION: 09/12/2017 REQUESTING PHYSICIAN: Rebecca Lamb MD CHIEF COMPLAINT: Multiple strokes. HISTORY OF PRESENT ILLNESS: The patient is an 82-year-old right-handed female with a history of hypertension, hypercholesterolemia, and new-onset atrial fibrillation , who presented to the emergency room 6 days ago with dyspnea and altered mental status. She was also lethargic at that time. The patient had denied any chest pains, nausea, vomiting, or visual changes at that time. CT scan initially showed some atrophy , but there was some mild hypodensity in the right temporoparietal region. A subsequent MRI demonstrated acute infarct in the right posterior temporal region as well as the right cerebellum. She also was found to have right MCA and right PICA diminished flow/occlusion. The patient had been treated conservatively. However, she also developed atrial fibrillation and was put on IV heparin. There has been no hemorrhagic transformation of the stroke to date. Neurosurgical second opinion was requested for the patient's stroke and any role for decompression. PAST MEDICAL HISTORY: Significant for hypertension, hypercholesterolemia, obesity, and atrial fibrillation. CURRENT MEDICATIONS: Include Zofran, Decadron, acetaminophen, Cozaar, Ventolin, labetalol, nebivolol, and ceftriaxone as well as Norvasc and baby aspirin. There is no known drug allergy. FAMILY HISTORY: Noncontributory. SOCIAL HISTORY: She does not smoke and only drinks alcohol socially. 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 REVIEW OF SYSTEMS: Positive for recent significant weight loss. There are no other notable constitutional, head and neck, cardiovascular, pulmonary, gastrointestinal, genitourinary, endocrinologic, neurologic, or psychological problems. The son stated that the patient had had recent colonoscopy and mammogram. PHYSICAL EXAMINATION: Vital Signs: Temperature is 98, blood pressure is 159/85 with pulse rate of 90 , O2 saturation is 97% on 2 L. General: The patient is resting comfortably in bed. HEENT: Examination shows her to be normocephalic, atraumatic, anicteric. Neck: Supple. Coronary: Examination demonstrates irregular rhythm. Lungs: Clear bilaterally except for decreased breath sounds at the bases. Abdomen: Benign. Extremities: Examination shows no obvious signs of DVT. Neurologic: The patient is slightly drowsy but easily arousable. She is oriented x2-3. She has mild left hemineglect. Her speech is reasonably fluent. Cranial nerve examination is otherwise intact 2-12. Specifically, she has no 6th or 7th cranial nerve palsy. Motor examination shows at least 4+ to 5/5 strength. Sensory examination intact to light touch. Deep tendon reflexes are hyporeflexic throughout. Toes are equivocal bilaterally. Cerebellar examination demonstrated moderate right dysmetria. LABORATORY EXAMINATION: Shows a white blood cell count of 15.8. Initially, the white count was 28,000. Hemoglobin is 14.8, hematocrit is 43.8, platelet count is 349,000. INR is 1.13, and PTT last was 68.4. Serum BUN 24, creatinine 0.7, serum sodium is 139, potassium is 3.4. Urinalysis initially showed trace ketone and 2 + protein. There were 4 WBCs and less than 1 RBC. Blood culture and urine culture were both negative. CT scans of the head from September 06 through September 12 were reviewed. There were a total of 4 CT scans on this admission. The initial CT scan demonstrated [id number] cerebral atrophy with right temporoparietal region hypodensity, suspicious for ischemia. There was mild periventricular small vessel disease. MRI of the brain from September 07 demonstrated acute infarct in the posterior division of the right middle cerebral artery as well as the right PICA. MRA demonstrated occlusion of the right PICA as well as diminished flow through the right N1 and N2 segments. The followup CT scans on September 10, , and demonstrated evolving right posterior/inferior division MCA and right PICA infarct. There was also surrounding mass effect and some edema. There was no significant midline shift. There was some narrowing of the basal cistern on the right. There was no hydrocephalus. There was no hemorrhagic transformation. IMPRESSION: 1. Evolving right posterior inferior cerebellar artery and right middle cerebral artery stroke. 2. Hypertension. 3. Hypercholesterolemia. 4. Recent weight loss, rule out undiagnosed neoplasm. 5. Pneumonia. RECOMMENDATIONS: The patient presents with altered mental status and dyspnea. She has sustained multiple strokes, most likely embolic in nature given both the supratentorial and infratentorial component from both anterior and posterior circulations. This is the sixth day of her stroke, and the maximal edema/mass effect has likely been reached. The patient's clinical/neurological condition has been improving per the medical team. Even though there is slight increasing mass effect near the basal cistern and at the base of the skull, the reality that the patient has improved clinically speaks against aggressive surgical intervention at this time. The patient should be observed for any signs of obstructive hydrocephalus such as altered mental status, increasing headache, nausea, vomiting, or brainstem impingement such as progressive truncal ataxia or right 6th and 7th cranial nerve palsies. Blood pressure should be maintained and should not be lowered too abruptly to help her maintain the cerebral perfusion. Because of the edema and mass effect, I requested that the patient be started on mannitol 12.5 g q.6 hours. The patient has normal renal function, and the blood pressure should be sustainable despite the low-dose mannitol. Mannitol can also help with microperfusion. If the patient deteriorated neurologically, surgical intervention could be considered, even though surgery would be extremely high risk given that the patient had 2 very recent strokes and she remains in atrial fibrillation, on anticoagulation. Stopping anticoagulation will likely cause further embolic events, unfortunately. The above was discussed with the patient's son at the bedside as well as the patient. The pros and cons of treatment approaches were discussed. DONA MCCELLLAND M.D. [id number] MTDD
--- NOTE | 2017-09-13 18:47 | PN ---
Physical Exam: SUBJECTIVE: Patient seen and examined at bedside. Patient is tired but arousable and answers questions. Patient is nauseous and vomiting and states that she has a headache. Denies any overt chest pain, shortness of breath, fevers, chills. OBJECTIVE: Vital Signs Period Temp Pulse Resp BP Sys/Espinoza Pulse Ox Last 24 Hr 98.2 F-98.8 F 68-89 15-20 116-210/46-91 91-95 GENERAL: The patient is tired but awake, alert and oriented x3. No acute distress. HEAD: Normal with no signs of trauma. LUNGS: Breath sounds equal, clear to auscultation bilaterally, no wheezes, no crackles, no accessory muscle use. HEART: regular rate but irregular rhythem, S1, S2 without murmur, rub or gallop. ABDOMEN: Soft, nontender, nondistended, normoactive bowel sounds, no guarding, no rebound, no hepatosplenomegaly, no masses. EXTREMITIES: 2+ pulses, warm, well-perfused, no edema. NEUROLOGICAL: Cranial nerves II through XII grossly intact. motor strength 5/5 in both upper and lower extremities bilaterally, no sensory deficits noted PSYCH: altered, slightly agitated, lethargic SKIN: Warm, dry, normal turgor, no rashes or lesions noted Laboratory Results - last 24 hr 09/13/17 09/13/17 09/13/17 05:35 05:35 05:35 WBC 22.8 H D RBC 5.16 Hgb 15.2 Hct 44.9 MCV 86.9 MCH 29.4 MCHC 33.9 RDW 12.4 Plt Count 379 MPV 8.1 Total Counted 100 Neutrophils % No Result Required. Neutrophils % (Manual) 87.0 H Lymphocytes % No Result Required. Lymphocytes % (Manual) 5.0 L D Monocytes % (Manual) 8 Platelet Estimate Adequate PTT (Actin FS) 50.9 H Sodium 134 L Potassium 3.6 Chloride 96 L Carbon Dioxide 27 Anion Gap 11 BUN 32 H D Creatinine 0.9 D Creat Clearance w eGFR 59.65 Random Glucose 234 H D Calcium 8.2 L Phosphorus 3.3 D Magnesium 2.2 Total Bilirubin 0.5 AST 23 ALT 29 Alkaline Phosphatase 80 Total Protein 6.2 L Albumin 2.7 L Active Medications Generic Name Dose Route Start Last Admin Trade Name Freq PRN Reason Stop Dose Admin Acetaminophen 1,000 mg 09/11/17 07:43 09/11/17 15:07 Ofirmev Injection - IVPB 1,000 mg Q6H PRN Administration FEVER OR PAIN Albuterol Sulfate 1 amp 09/11/17 12:00 09/13/17 18:13 Ventolin 0.083% Nebulizer Soln - NEB Not Given QIDR SHAHRAM Amlodipine Besylate 5 mg 09/11/17 10:00 09/13/17 09:49 Norvasc - PO 5 mg DAILY SHAHRAM Administration Aspirin 81 mg 09/09/17 23:45 09/13/17 09:49 Asa - PO 81 mg DAILY SHAHRAM Administration Atorvastatin Calcium 80 mg 09/10/17 22:00 09/12/17 21:07 Lipitor - PO 80 mg HS SHAHRAM Administration Dexamethasone Sodium Phosphate 10 mg 09/12/17 18:00 09/13/17 17:29 Decadron Injection - IVPUSH 10 mg Q8H-IV SHAHRAM Administration Heparin Sodium (Porcine) 1,000 unit 09/12/17 09:10 Heparin - IVPUSH PRN PRN Heparin Heparin Sodium (Porcine) 5,000 unit 09/12/17 09:10 Heparin - IVPUSH PRN PRN Heparin Labetalol HCl 1,000 mg/ 1,000 mls @ 120 mls/hr 09/11/17 08:28 09/13/17 17:27 Dextrose IV Not Given TITR SHAHRAM Protocol 2 MG/MIN Heparin Sodium/Dextrose 25,000 units in 500 mls @ 16 mls/hr 09/12/17 09:15 09:55 Heparin Infusion - IVPB 900 units/hr TITR SHAHRAM 18 mls/hr Protocol Administration 800 UNITS/HR Labetalol HCl 10 mg 09/11/17 08:29 09/13/17 09:37 Normodyne Injection - IVPUSH 10 mg Q3H PRN Administration HYPERTENSION Losartan Potassium 100 mg 09/10/17 18:15 09/13/17 09:48 Cozaar - PO 100 mg DAILY SHAHRAM Administration Mannitol 12.5 gm 09/12/17 20:30 09/13/17 15:58 Osmitrol - IVPB 12.5 gm Q6H-IV SHAHRAM Administration Metoclopramide HCl 10 mg 09/11/17 12:05 09/13/17 15:57 Reglan Injection - IVPUSH 10 mg Q6H PRN Administration NAUSEA AND/OR VOMITING Nebivolol 20 mg/ Nebivolol 5 25 mg 09/11/17 21:30 09/13/17 09:58 mg PO 25 mg DAILY SHAHRAM Administration Ondansetron HCl 8 mg 09/12/17 14:44 09/12/17 15:24 Zofran Injection IVPB 8 mg Q6H PRN Administration NAUSEA AND/OR VOMITING Sucralfate 1 gm 09/13/17 10:15 09/13/17 12:00 Carafate Oral Suspension - PO 1 gm BID SHAHRAM Administration Imaging: MRI BRAIN WITHOUT CONTRAST: 1. Acute right middle cerebral artery territory infarction involving the temporoparietal lobes extending into the posterior insular cortex, with local mass effects as described above. No midline shift or herniation pattern. 2. Acute right PICA territory infarction with local sulcal effacement and partial effacement of the fourth ventricle outflow tract. No cerebellar herniation pattern or hydrocephalus at this time. 3. Generalized, age -related volume loss and moderately severe chronic microvascular ischemic changes with clinical coronary infarct as described above. Focus of hemosiderin in the left cerebellum reflecting the sequela of prior petechial microhemorrhages, likely secondary to hypertension. MRA [place] - 1. Absence of flow in the right posterior-inferior cerebral artery which is most likely due to occlusion given the large right cerebellar infarct. 2. Mild luminal narrowing in the M1 and M2 segments of the right MCA with attenuated flow in the inferior M2 division. No occlusion in the central arteries of the [place]. 3. 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 4. Attenuated flow in the P2 and P3 segments of the right CH[employer]OR may be secondary to slow flow. CT HEAD (09/12/17): Interval slight worsening mass effect of previously visualized evolving large right cerebellar subacute infarct with effacement of the right posterior lateral basal cisterns and mild mass effect on the stem/ medulla oblongata as well as mild mass effect slightly narrowing the fourth ventricle. No acute intracranial hemorrhage is identified. Stable involving the right posterior temporal/frontal/parietal subacute infarct. Continued follow-up is needed. ASSESSMENT/PLAN: 82 year old female with a past medical history of hypertension, CHF, hyperlipidemia admitted to the ICU for sepsis 2/2 pneumonia, hypertensive emergency, and ischemic stroke. #Ischemic Stroke: condition stable, no neurological deficits noted -Continue asa 81mg QD -continue atorvastatin 80mg -neurochecks -not eating much per nurse, appreciate Speech/Swallow consult. Swallowing intact -continue heparin drip -keep blood pressure low <140 -appreciate neuro, neurosurg, and cardiology recommendations -patient has increasing mass effect, refuses craniotomy to primary team, neurosurg reassessment also agrees no need for surgery. -physiatry consult -reduce heparin -taper/DC decadron tomorrow -given tigan for nausea #Atrial Fibrillation: rate is in the 80's, no more palpitations -Patient's aspirin 81mg continued -continue atorvastatin 80mg -continue nabivolol and labetalol IV PRN in ICU to control rate, can titrate with labetalol drip if necessary to reduce BP #Sepsis likely 2/2 Pneumonia: patient finished 7 days ceftriaxone -resolved #Hypertensive Emergency: BP very labile -frequent BP checks, give the following medications -continue labetalol 10mg IV Q6h PRN -continue bystolic (nebivolol) 20mg PO QD -continue cozaar (50mg PO QD) -can give labetalol drip and titrate to <140 if pt emergently hypertensive -echocardiogram is within normal limits #Hyperkalemia: potassium low today -replete as necessary #FEN: -no standing fluids -replete lytes as necessary -soft #Prophylaxis -continue IV heparin drip #Disposition -Continue to monitor on telemetry Visit type - Emergency Visit Emergency Visit: No - New Patient This patient is new to me today: No - Critical Care Critical Care patient: Yes Total Critical Care Time (in minutes): 35 Critical Care Statement: The care of this patient involved high complexity decision making to prevent further life threatening deterioration of the patient 's condition and/or to evaluate & treat vital organ system(s) failure or risk of failure.
--- NOTE | 2017-09-13 20:04 | PN ---
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 (short form) - Note 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: Seen in CCU. Patient remains lethargic, arousable, remains nauseous, BP flactuating.In atrial fib. with cotrolled ventricular response. Dr.Thomas Guy's consult seen. Active Medications Generic Name Dose Route Start Last Admin Trade Name Freq PRN Reason Stop Dose Admin Acetaminophen 1,000 mg 09/11/17 07:43 09/11/17 15:07 Ofirmev Injection - IVPB 1,000 mg Q6H PRN Administration FEVER OR PAIN Albuterol Sulfate 1 amp 09/11/17 12:00 09/13/17 18:13 Ventolin 0.083% Nebulizer Soln - NEB Not Given QIDR SHAHRAM Amlodipine Besylate 5 mg 09/11/17 10:00 09/13/17 09:49 Norvasc - PO 5 mg DAILY SHAHRAM Administration Aspirin 81 mg 09/09/17 23:45 09/13/17 09:49 Asa - PO 81 mg DAILY SHAHRAM Administration Atorvastatin Calcium 80 mg 09/10/17 22:00 09/12/17 21:07 Lipitor - PO 80 mg HS SHAHRAM Administration Dexamethasone Sodium Phosphate 10 mg 09/12/17 18:00 09/13/17 17:29 Decadron Injection - IVPUSH 10 mg Q8H-IV SHAHRAM Administration Heparin Sodium (Porcine) 1,000 unit 09/12/17 09:10 Heparin - IVPUSH PRN PRN Heparin Heparin Sodium (Porcine) 5,000 unit 09/12/17 09:10 Heparin - IVPUSH PRN PRN Heparin Labetalol HCl 1,000 mg/ 1,000 mls @ 120 mls/hr 09/11/17 08:28 09/13/17 17:27 Dextrose IV Not Given TITR SHAHRAM Protocol 2 MG/MIN Heparin Sodium/Dextrose 25,000 units in 500 mls @ 16 mls/hr 09/12/17 09:15 09:55 Heparin Infusion - IVPB 900 units/hr TITR SHAHRAM 18 mls/hr Protocol Administration 800 UNITS/HR Labetalol HCl 10 mg 09/11/17 08:29 09/13/17 19:48 Normodyne Injection - IVPUSH 10 mg Q3H PRN Administration HYPERTENSION Losartan Potassium 100 mg 09/10/17 18:15 09/13/17 09:48 Cozaar - PO 100 mg DAILY SHAHRAM Administration Mannitol 12.5 gm 09/12/17 20:30 09/13/17 15:58 Osmitrol - IVPB 12.5 gm Q6H-IV SHAHRAM Administration Metoclopramide HCl 10 mg 09/11/17 12:05 09/13/17 15:57 Reglan Injection - IVPUSH 10 mg Q6H PRN Administration NAUSEA AND/OR VOMITING Nebivolol 20 mg/ Nebivolol 5 25 mg 09/11/17 21:30 09/13/17 09:58 mg PO 25 mg DAILY SHAHRAM Administration Ondansetron HCl 8 mg 09/12/17 14:44 09/12/17 15:24 Zofran Injection IVPB 8 mg Q6H PRN Administration NAUSEA AND/OR VOMITING Sucralfate 1 gm 09/13/17 10:15 09/13/17 12:00 Carafate Oral Suspension - PO 1 gm BID SHAHRAM Administration 82 year old female is lethargic but arousable and alert. No pallor or cyanosis, clubbing or jaundice. Last Vital Signs Temp Pulse Resp BP Pulse Ox 98.2 F 80 16 151/81 96 09/13/17 14:00 09/13/17 18:00 09/13/17 18:00 09/13/17 18:00 09/13/17 18:00 Intake & Output 09/10/17 09/11/17 09/12/17 09/13/17 23:59 23:59 23:59 23:59 Intake Total 792 1112 1122 2164 Output Total 400 200 Balance 392 6347 607 0236 Weight 121 lb 4.8 oz 118 lb 8 oz 117 lb 11.2 oz NECK: Supple, no JVD, No HJR, carotids are 2+, no bruits are heard. HEART: PMI is in 5th ICS, no heaves or thrills. S1 and S2 are normal. No murmur or gallops were heard. LUNGS: Fine creps. at the right base. ABDOMEN: Soft, nontender, no organomegaly or palpable masses felt. EXTREMITIES: No calf tenderness or dependent edema. 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 CBC, BMP 09/13/17 05:35 09/13/17 05:35 IMPRESSION: 1. Hypertension/HCVD, poorly controlled. 2. Atrial fib with controlled ventricular response. 3. 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 5. Hypercholesterolemia. 6. Hypercholestrolemia. 7. Nausea and vomiting, etiology: secondary to increased intracranial pressure. 8. S/p CHF. Recommendations: 1. Increase dose of Amlodipine to 10mg. if she remains hypertensive. Prognosis: Critical. Problem List - Problems (1) Sepsis Code(s): A41.9 - SEPSIS, UNSPECIFIED ORGANISM (2) Accelerated hypertension Code(s): I10 - ESSENTIAL (PRIMARY) HYPERTENSION (3) Ventricular premature beats, contractions, or systoles Code(s): I49.3 - VENTRICULAR PREMATURE DEPOLARIZATION (4) Altered mental status Code(s): R41.82 - ALTERED MENTAL STATUS, UNSPECIFIED Qualifiers: Altered mental status type: transient alteration of awareness Qualified Code(s): R40.4 - Transient alteration of awareness (5) Pneumonia Code(s): J18.9 - PNEUMONIA, UNSPECIFIED ORGANISM Qualifiers: Pneumonia type: due to unspecified organism Laterality: left Lung location: lower lobe of lung Qualified Code(s): J18.1 - Lobar pneumonia, unspecified organism (6) Left ventricular failure Code(s): I50.1 - LEFT VENTRICULAR FAILURE, UNSPECIFIED
[2017-09-13] MEDS: ATORVASTATIN CA 80 MG TABLET (FP) PO SCH (21:04)
[2017-09-14] MEDS: DEXAMETHASONE SOD PHOSPHATE 4 MG/1 ML VIAL IVPUSH SCH (01:19)
[2017-09-14] MEDS: MANNITOL 25% 12.5 GM/50 ML VIAL IVPB SCH ×3 (02:32→15:00)
[2017-09-14] MEDS: METOCLOPRAMIDE HCL INJECTION 10 MG/2 ML VIAL IVPUSH PRN (02:49)
[2017-09-14] MEDS: LABETALOL HCL 5 MG/1 ML (100MG/20 ML VIAL) IVPUSH PRN ×2 (03:09→12:33)
[2017-09-14 06:06] LABS: HEMATOCRIT 44.9 % (32.4-45.2); HEMOGLOBIN 15.3 GM/dL (10.7-15.3); MCH 29.9 pg (25.7-33.7); MCHC 34.2 g/dl (32.0-36.0); MEAN CELL VOLUME 87.3 fl (80-96); PLATELET COUNT 400 K/MM3 (134-434); RBC 5.14 M/mm3 (3.60-5.2); RDW 12.5 % (11.6-15.6)
[2017-09-14 06:19] LABS: WHITE BLOOD COUNT 32.1 K/mm3 (4.0-10.0)
[2017-09-14] MEDS: ALBUTEROL SO4 0.083% IH SOL 2.5 MG/3 ML VIAL.NEB. NEB SCH ×4 (06:30→17:25)
[2017-09-14 06:45] LABS: ALBUMIN 2.9 g/dl (3.4-5.0); ALK PHOS 84 U/L (45-117); ANION GAP 12 (8-16); BILIRUBIN,TOTAL 0.7 mg/dL (0.2-1.0); BLOOD UREA NITROGEN 38 mg/dL (7-18); CALCIUM 8.6 mg/dL (8.5-10.1); CHLORIDE 95 mmol/L (98-107); CO2 26 mmol/L (21-32); CREATININE 0.8 mg/dL (0.55-1.02); GLUCOSE,RANDOM 210 mg/dL (74-106); MAGNESIUM 2.3 mg/dL (1.8-2.4); PHOSPHOROUS 3.9 mg/dL (2.5-4.9); POTASSIUM 3.1 mmol/L (3.5-5.1); SGOT/AST 33 U/L (15-37); SGPT/ALT 42 U/L (12-78); SODIUM 133 mmol/L (136-145); TOT PROT 6.1 g/dl (6.4-8.2)
[2017-09-14] MEDS ORDERED: POTASSIUM CHLORIDE TABS 20 MEQ TABLET.ER (FP) PO ONE ×2 (08:00→08:30)
[2017-09-14] MEDS: LABETALOL HCL INJECTION 1,000 MG in DEXTROSE 5%-WATER - 800 ML IV SCH (08:50)
[2017-09-14] MEDS: HEPARIN INFUSION - 25,000 UNITS/500 ML INFUS.BAG IVPB SCH (08:50)
[2017-09-14 09:01] LABS: ANISOCYTOSIS 3+; MACROCYTOSIS 0; PLATELET ESTIMATE NORMAL
[2017-09-14] MEDS ORDERED: PT OWN MED DRAWER 7, Y5N ONE (09:01)
[2017-09-14] MEDS ORDERED: POTASSIUM CHLORIDE 20 MEQ PREMIX IVPB 100 ML IVPB ONE ×2 (09:15→14:44)
[2017-09-14] MEDS: ASPIRIN 81 MG CHEWABLE TABLETS PO SCH ×2 (09:26→09:27)
[2017-09-14] MEDS: LOSARTAN POTASSIUM 50 MG TABLET (FP) PO SCH (09:27)
[2017-09-14] MEDS: amLODIPine BESYLATE 10 MG TABLET (FP) PO SCH (09:28)
[2017-09-14] MEDS: SUCRALFATE 1 GM/10 ML UNIT DOSE CUPS PO SCH ×2 (09:30→22:11)
[2017-09-14] MEDS: NEBIVOLOL PO SCH (09:32)
[2017-09-14] MEDS ORDERED: DEXAMETHASONE SOD PHOSPHATE 4 MG/1 ML VIAL IVPUSH SCH (10:00)
--- NOTE | 2017-09-14 11:39 | PN ---
Teaching Attending Note Name of Resident: Phoenix Boyle ATTENDING PHYSICIAN STATEMENT I saw and evaluated the patient. I reviewed the resident's note and discussed the case with the resident. I agree with the resident's findings and plan as documented. SUBJECTIVE: Patient seen and examined in the ICU. Sleepy but arousable. No gross change in Neuro exam. Reports persistent nausea. Intake & Output 09/11/17 09/12/17 09/13/17 09/14/17 23:59 23:59 23:59 23:59 Intake Total 1112 1122 2476 384 Output Total 200 Balance 7214 966 5672 384 Weight 121 lb 4.8 oz 118 lb 8 oz 117 lb 11.2 oz 117 lb 1.6 oz Last Vital Signs Temp Pulse Resp BP Pulse Ox 98.0 F 77 18 165/76 93 L 09/14/17 06:00 09/14/17 09:00 09/14/17 09:00 09/14/17 09:00 09/13/17 20:18 Active Medications Acetaminophen (Ofirmev Injection -) 1,000 mg IVPB Q6H PRN PRN Reason: FEVER OR PAIN Last Admin: 09/11/17 15:07 Dose: 1,000 mg Albuterol Sulfate (Ventolin 0.083% Nebulizer Soln -) 1 amp NEB QIDR [facility] Last Admin: 09/14/17 11:17 Dose: 1 amp Amlodipine Besylate (Norvasc -) 10 mg PO DAILY [facility] Last Admin: 09/14/17 09:28 Dose: 10 mg Aspirin (Asa -) 81 mg PO DAILY [facility] Last Admin: 09/14/17 09:27 Dose: 81 mg Atorvastatin Calcium (Lipitor -) 80 mg PO HS [facility] Last Admin: 09/13/17 21:04 Dose: 80 mg Dexamethasone Sodium Phosphate (Decadron Injection -) 10 mg IVPUSH BID [facility] Last Admin: 09/14/17 09:29 Dose: 10 mg Heparin Sodium (Porcine) (Heparin -) 1,000 unit IVPUSH PRN PRN PRN Reason: Heparin Heparin Sodium (Porcine) (Heparin -) 5,000 unit IVPUSH PRN PRN PRN Reason: Heparin Labetalol HCl 1,000 mg/ (Dextrose) 1,000 mls @ 120 mls/hr IV TITR SHAHRAM; 2 MG/MIN PRN Reason: Protocol Last Admin: 09/14/17 08:50 Dose: Not Given Heparin Sodium/Dextrose (Heparin Infusion -) 25,000 units in 500 mls @ 16 mls/ hr IVPB TITR SHAHRAM; 800 UNITS/HR PRN Reason: Protocol Last Admin: 09/14/17 08:50 Dose: 900 units/hr, 18 mls/hr Labetalol HCl (Normodyne Injection -) 10 mg IVPUSH Q3H PRN PRN Reason: HYPERTENSION Last Admin: 09/14/17 03:09 Dose: 10 mg Lidocaine/Aluminum/Magnesium/Simeth (Magic Mouthwash *Sjr Formula* -) 5 ml MM Q6HPO SHAHRAM Losartan Potassium (Cozaar -) 100 mg PO DAILY SHAHRAM Last Admin: 09/14/17 09:27 Dose: 100 mg Mannitol (Osmitrol -) 12.5 gm IVPB Q6H-IV SHAHRAM Last Admin: 09/14/17 08:51 Dose: 12.5 gm Metoclopramide HCl (Reglan Injection -) 10 mg IVPUSH Q6H PRN PRN Reason: NAUSEA AND/OR VOMITING Last Admin: 09/14/17 02:49 Dose: 10 mg Nebivolol 20 mg/ Nebivolol 5 (mg) 25 mg PO DAILY SHAHRAM Last Admin: 09/14/17 09:32 Dose: 25 mg Ondansetron HCl (Zofran Injection) 8 mg IVPB Q6H PRN PRN Reason: NAUSEA AND/OR VOMITING Last Admin: 09/12/17 15:24 Dose: 8 mg Sucralfate (Carafate Oral Suspension -) 1 gm PO BID SHAHRAM Last Admin: 09/14/17 09:30 Dose: 1 gm Gen: Sleepy but easily arousable Heart: RRR Lung: decreased breath sounds at the bases Abd: soft, nontender Ext: no edema Neuro: mild confusion, minimal left drift. Laboratory Results - last 24 hr 09/14/17 09/14/17 09/14/17 05:55 05:55 05:55 WBC 32.1 H* D RBC 5.14 Hgb 15.3 Hct 44.9 MCV 87.3 MCH 29.9 MCHC 34.2 RDW 12.5 Plt Count 400 MPV 8.0 Neutrophils % No Result Required. Neutrophils % (Manual) 92.2 H* Band Neutrophils % 0.0 Lymphocytes % No Result Required. Lymphocytes % (Manual) 2.0 L D Monocytes % (Manual) 4 Eosinophils % (Manual) 1.0 Basophils % (Manual) 0.0 Myelocytes % (Man) 0 Metamyelocytes 0 Hypochromia 0 Platelet Estimate Normal Platelet Comment Present Polychromasia 0 Poikilocytosis 2+ Anisocytosis 3+ Microcytosis 3+ Macrocytosis 0 PTT (Actin FS) 59.3 H Sodium 133 L Potassium 3.1 L Chloride 95 L Carbon Dioxide 26 Anion Gap 12 BUN 38 H Creatinine 0.8 Creat Clearance w eGFR > 60 Random Glucose 210 H Calcium 8.6 Phosphorus 3.9 Magnesium 2.3 Total Bilirubin 0.7 D AST 33 D ALT 42 D Alkaline Phosphatase 84 Total Protein 6.1 L Albumin 2.9 L IMP: Altered Mental Status Acute/Subacute CVA Pneumonia Bilateral Pleural Effusions HTN Hyperlipidemia P AFib PLAN; Titrate BP meds IV Heparin drip per protocol with close monitoring of PTT : will likely start on NOAC Holding on decompressive craniectomy (Neurosurgery second opinion noted) Noted low dose mannitol was ordered PO as tolerated Aspiration precautions HOB @ 30 degrees SCDs Monitor off ABX ICU monitoring Dr Quintanilla Critical care time spent in reviewing chart, evaluating patient and formulating plan - 40 minutes.
[2017-09-14] MEDS: ONDANSETRON 4 MG/2 ML VIAL IVPB PRN ×2 (12:50→17:46)
--- NOTE | 2017-09-14 12:52 | PN ---
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 The patient had an episode of AMS and was found to have a subacute R sided ischemic lesion at her occipital-parietal junction and R cerebellar infarct. She was in the ICU, was stabilized, and sent to med/surg. Yesterday, her CT showed worsening mass effect. She continues to complain about nausea, likely 2/2 to increased brain swelling. She is hemodynamically stable, although her BP has been fluctuating. OBJECTIVE: Vital Signs Period Temp Pulse Resp BP Sys/Espinoza Pulse Ox Last 24 Hr 98.0 F-98.2 F 67-81 15-20 107-195/48-91 93-96 GENERAL: The patient is awake, oriented, in mild distress. HEAD: Normal with no signs of trauma. EYES: PERRL, extraocular movements intact, sclera anicteric, conjunctiva clear. No ptosis. NECK: Trachea midline, full range of motion, supple. LUNGS: Breath sounds equal, clear to auscultation bilaterally, no wheezes, no crackles, no accessory muscle use. HEART: Regular rate and rhythm, S1, S2 without murmur, rub or gallop. ABDOMEN: Soft, nontender, nondistended, normoactive bowel sounds, no guarding, no rebound, no hepatosplenomegaly, no masses. EXTREMITIES: 2+ pulses, warm, well-perfused, no edema. NEUROLOGICAL: Cranial nerves II through XII grossly intact. Normal speech, gait not observed. PSYCH: Normal mood, normal affect. SKIN: Warm, dry, normal turgor, no rashes or lesions noted Laboratory Results - last 24 hr 09/14/17 09/14/17 09/14/17 05:55 05:55 05:55 WBC 32.1 H* D RBC 5.14 Hgb 15.3 Hct 44.9 MCV 87.3 MCH 29.9 MCHC 34.2 RDW 12.5 Plt Count 400 MPV 8.0 Neutrophils % No Result Required. Neutrophils % (Manual) 92.2 H* Band Neutrophils % 0.0 Lymphocytes % No Result Required. Lymphocytes % (Manual) 2.0 L D Monocytes % (Manual) 4 Eosinophils % (Manual) 1.0 Basophils % (Manual) 0.0 Myelocytes % (Man) 0 Metamyelocytes 0 Hypochromia 0 Platelet Estimate Normal Platelet Comment Present Polychromasia 0 Poikilocytosis 2+ Anisocytosis 3+ Microcytosis 3+ Macrocytosis 0 PTT (Actin FS) 59.3 H Sodium 133 L Potassium 3.1 L Chloride 95 L Carbon Dioxide 26 Anion Gap 12 BUN 38 H Creatinine 0.8 Creat Clearance w eGFR > 60 Random Glucose 210 H Calcium 8.6 Phosphorus 3.9 Magnesium 2.3 Total Bilirubin 0.7 D AST 33 D ALT 42 D Alkaline Phosphatase 84 Total Protein 6.1 L Albumin 2.9 L Active Medications Generic Name Dose Route Start Last Admin Trade Name Freq PRN Reason Stop Dose Admin Acetaminophen 1,000 mg 09/11/17 07:43 09/11/17 15:07 Ofirmev Injection - IVPB 1,000 mg Q6H PRN Administration FEVER OR PAIN Albuterol Sulfate 1 amp 09/11/17 12:00 09/14/17 11:17 Ventolin 0.083% Nebulizer Soln - NEB 1 amp QIDR SHAHRAM Administration Amlodipine Besylate 10 mg 09/14/17 10:00 09/14/17 09:28 Norvasc - PO 10 mg DAILY SHAHRAM Administration Aspirin 81 mg 09/09/17 23:45 09/14/17 09:27 Asa - PO 81 mg DAILY SHAHRAM Administration Atorvastatin Calcium 80 mg 09/10/17 22:00 09/13/17 21:04 Lipitor - PO 80 mg HS SHAHRAM Administration Dexamethasone Sodium Phosphate 10 mg 09/14/17 10:00 09/14/17 09:29 Decadron Injection - IVPUSH 10 mg BID SHAHRAM Administration Heparin Sodium (Porcine) 1,000 unit 09/12/17 09:10 Heparin - IVPUSH PRN PRN Heparin Heparin Sodium (Porcine) 5,000 unit 09/12/17 09:10 Heparin - IVPUSH PRN PRN Heparin Labetalol HCl 1,000 mg/ 1,000 mls @ 120 mls/hr 09/11/17 08:28 09/14/17 08:50 Dextrose IV Not Given TITR SHAHRAM Protocol 2 MG/MIN Heparin Sodium/Dextrose 25,000 units in 500 mls @ 16 mls/hr 09/12/17 09:15 08:50 Heparin Infusion - IVPB 900 units/hr TITR SHAHRAM 18 mls/hr Protocol Administration 800 UNITS/HR Labetalol HCl 10 mg 09/11/17 08:29 09/14/17 03:09 Normodyne Injection - IVPUSH 10 mg Q3H PRN Administration HYPERTENSION Lidocaine/Aluminum/Magnesium/Simeth 5 ml 09/14/17 12:00 Magic Mouthwash *Sjr Formula* - MM Q6HPO SHAHRAM Losartan Potassium 100 mg 09/10/17 18:15 09/14/17 09:27 Cozaar - PO 100 mg DAILY SHAHRAM Administration Mannitol 12.5 gm 09/12/17 20:30 09/14/17 08:51 Osmitrol - IVPB 12.5 gm Q6H-IV SHAHRAM Administration Metoclopramide HCl 10 mg 09/11/17 12:05 09/14/17 02:49 Reglan Injection - IVPUSH 10 mg Q6H PRN Administration NAUSEA AND/OR VOMITING Nebivolol 20 mg/ Nebivolol 5 25 mg 09/11/17 21:30 09/14/17 09:32 mg PO 25 mg DAILY SHAHRAM Administration Ondansetron HCl 8 mg 09/12/17 14:44 09/12/17 15:24 Zofran Injection IVPB 8 mg Q6H PRN Administration NAUSEA AND/OR VOMITING Sucralfate 1 gm 09/13/17 10:15 09/14/17 09:30 Carafate Oral Suspension - PO 1 gm BID SHAHRAM Administration ASSESSMENT/PLAN: 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 Neuro: Acute/subacute CVA with increased nausea - Likely embolic due to new afib. - CT head: Slightly worsening mass effect from R cerebellar subacute infarct - Neurosurgery recommends decompressive craneotomy; patient refuses; Dr. Guy does not recommend a decompressive craniotomy - BP goal 130-140; patient is refusing to take her medications; spoken with her and she said she will try - Minimize fluid intake - Decadron IV switched from TID to BID - Mannitol 12.5g - Neuro checks q 1 h - Neuro on case - Plavix Pulm: CAP - CXR bibasilar infiltrates - Leukocytosis worsenin.1 from 22.8; likely 2/2 to steroid dosing, switch to BID and monitor CBC - Gilbert culture to r/o infection - Continuing rocephin - Cultures negative - Ventolin prn CV: New onset a-fib -TTE normal RV, LF fxn. -Labetalol 10 IV prn, hold parameters per neuro above -hep full a/c FEN: - Carafate for nausea with reglan - not improving nausea - Minimize fluids - Repleting k - Soft diet, can do puree diet depending on patient's desires Dispo: - ICU monitoring Visit type - Emergency Visit Emergency Visit: Yes ED Registration Date: 09/06/17 Care time: The patient presented to the Emergency Department on the above date and was hospitalized for further evaluation of their emergent condition. - New Patient This patient is new to me today: No - Critical Care Critical Care patient: Yes Total Critical Care Time (in minutes): 41 Critical Care Statement: The care of this patient involved high complexity decision making to prevent further life threatening deterioration of the patient 's condition and/or to evaluate & treat vital organ system(s) failure or risk of failure.
--- NOTE | 2017-09-14 13:00 | PN ---
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 (short form) - Note 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: Seen in CCU. Patient remains arousable but lethargic, poor appetite, nauseous and intermittent vomitting. BP continuous to fluctuate. Remains in atrial fib. with controlled ventricular response. Active Medications Generic Name Dose Route Start Last Admin Trade Name Freq PRN Reason Stop Dose Admin Acetaminophen 1,000 mg 09/11/17 07:43 09/11/17 15:07 Ofirmev Injection - IVPB 1,000 mg Q6H PRN Administration FEVER OR PAIN Albuterol Sulfate 1 amp 09/11/17 12:00 09/14/17 11:17 Ventolin 0.083% Nebulizer Soln - NEB 1 amp QIDR SHAHRAM Administration Amlodipine Besylate 10 mg 09/14/17 10:00 09/14/17 09:28 Norvasc - PO 10 mg DAILY SHAHRAM Administration Aspirin 81 mg 09/09/17 23:45 09/14/17 09:27 Asa - PO 81 mg DAILY SHAHRAM Administration Atorvastatin Calcium 80 mg 09/10/17 22:00 09/13/17 21:04 Lipitor - PO 80 mg HS SHAHRAM Administration Dexamethasone Sodium Phosphate 10 mg 09/14/17 10:00 09/14/17 09:29 Decadron Injection - IVPUSH 10 mg BID SHAHRAM Administration Heparin Sodium (Porcine) 1,000 unit 09/12/17 09:10 Heparin - IVPUSH PRN PRN Heparin Heparin Sodium (Porcine) 5,000 unit 09/12/17 09:10 Heparin - IVPUSH PRN PRN Heparin Labetalol HCl 1,000 mg/ 1,000 mls @ 120 mls/hr 09/11/17 08:28 09/14/17 08:50 Dextrose IV Not Given TITR SHAHRAM Protocol 2 MG/MIN Heparin Sodium/Dextrose 25,000 units in 500 mls @ 16 mls/hr 09/12/17 09:15 08:50 Heparin Infusion - IVPB 900 units/hr TITR SHAHRAM 18 mls/hr Protocol Administration 800 UNITS/HR Labetalol HCl 10 mg 09/11/17 08:29 09/14/17 12:33 Normodyne Injection - IVPUSH 10 mg Q3H PRN Administration HYPERTENSION Lidocaine/Aluminum/Magnesium/Simeth 5 ml 09/14/17 12:00 Magic Mouthwash *Sjr Formula* - MM Q6HPO SHAHRAM Losartan Potassium 100 mg 09/10/17 18:15 09/14/17 09:27 Cozaar - PO 100 mg DAILY SHAHRAM Administration Mannitol 12.5 gm 09/12/17 20:30 09/14/17 08:51 Osmitrol - IVPB 12.5 gm Q6H-IV SHAHRAM Administration Metoclopramide HCl 10 mg 09/11/17 12:05 09/14/17 02:49 Reglan Injection - IVPUSH 10 mg Q6H PRN Administration NAUSEA AND/OR VOMITING Nebivolol 20 mg/ Nebivolol 5 25 mg 09/11/17 21:30 09/14/17 09:32 mg PO 25 mg DAILY SHAHRAM Administration Ondansetron HCl 8 mg 09/12/17 14:44 09/14/17 12:50 Zofran Injection IVPB 8 mg Q6H PRN Administration NAUSEA AND/OR VOMITING Sucralfate 1 gm 09/13/17 10:15 09/14/17 09:30 Carafate Oral Suspension - PO 1 gm BID SHAHRAM Administration 82 year old female is lethargic but arousable and alert. No pallor or cyanosis, clubbing or jaundice. Last Vital Signs Temp Pulse Resp BP Pulse Ox 98.0 F 73 17 171/66 93 L 09/14/17 06:00 09/14/17 12:00 09/14/17 12:00 09/14/17 12:00 09/13/17 20:18 Intake & Output 09/11/17 09/12/17 09/13/17 09/14/17 23:59 23:59 23:59 23:59 Intake Total 1112 1122 2476 384 Output Total 200 Balance 4971 799 2444 384 Weight 121 lb 4.8 oz 118 lb 8 oz 117 lb 11.2 oz 117 lb 1.6 oz NECK: Supple, no JVD, No HJR, carotids are 2+, no bruits are heard. HEART: PMI is in 5th ICS, no heaves or thrills. S1 and S2 are normal. No murmur or gallops were heard. LUNGS: Fine creps. at the right base. ABDOMEN: Soft, nontender, no organomegaly or palpable masses felt. EXTREMITIES: No calf tenderness or dependent edema. PUMPER HAND: lethargic, easily arousable, no gross localizing signs. CBC, BMP 09/14/17 05:55 09/14/17 05:55 IMPRESSION: 1. Leukocytosis, etiology; a). Secondary to steroids. b). Infectious process needs to be excluded. 2. Hypertension/HCVD, poorly controlled. 3. Atrial fib with controlled ventricular response. 4. 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 5. Hypercholesterolemia. 6. Hypercholestrolemia. 7. Nausea and vomiting, etiology: secondary to increased intracranial pressure. 8. S/p CHF. Recommendations: 1. Increase dose of Amlodipine to 10mg. if she remains hypertensive. 2. Evaluation of leukocytosis. Prognosis: Critical. Problem List - Problems (1) Sepsis Code(s): A41.9 - SEPSIS, UNSPECIFIED ORGANISM (2) Accelerated hypertension Code(s): I10 - ESSENTIAL (PRIMARY) HYPERTENSION (3) Ventricular premature beats, contractions, or systoles Code(s): I49.3 - VENTRICULAR PREMATURE DEPOLARIZATION (4) Altered mental status Code(s): R41.82 - ALTERED MENTAL STATUS, UNSPECIFIED Qualifiers: Altered mental status type: transient alteration of awareness Qualified Code(s): R40.4 - Transient alteration of awareness (5) Pneumonia Code(s): J18.9 - PNEUMONIA, UNSPECIFIED ORGANISM Qualifiers: Pneumonia type: due to unspecified organism Laterality: left Lung location: lower lobe of lung Qualified Code(s): J18.1 - Lobar pneumonia, unspecified organism (6) Left ventricular failure Code(s): I50.1 - LEFT VENTRICULAR FAILURE, UNSPECIFIED
[2017-09-14] MEDS ORDERED: LABETALOL HCL INJECTION 1,000 MG in DEXTROSE 5%-WATER - 800 ML IV SCH (13:15)
--- NOTE | 2017-09-14 13:25 | PN ---
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 (short form) - Note 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: Patient remains Neurologically unchanged. Awake with eyes open and intermitently converses. Agree with supportive care per her wishes.
--- NOTE | 2017-09-14 14:23 | PN ---
Teaching Attending Note Name of Resident: Daniel Thapa ATTENDING PHYSICIAN STATEMENT I saw and evaluated the patient. I reviewed the resident's note and discussed the case with the resident. I agree with the resident's findings and plan as documented. SUBJECTIVE:c/o nausea, no relief with antiemetics. denies CP, SOB, fever, chills , GAYLE, blurred vision, numbness or weakness. no diarrhea OBJECTIVE: Last Vital Signs Temp Pulse Resp BP Pulse Ox 97.7 F 79 17 163/81 93 L 09/14/17 11:00 09/14/17 13:44 09/14/17 13:44 09/14/17 13:44 09/13/17 20:18 General mild distress due to nausea CV S1 S2 irregular Lungs decreased breath sounds anteriorly Abdomen soft NT/ND Extremities no pedal edema neuro moves all 4 extremities. sensation grossly intact ASSESSMENT AND PLAN: 82 yo F with PMHx of HTN, HLD, admitted with shortness of breath, likely LLL CAP with sepsis, with component of acute diastolic heart failure, hypertensive urgency and Possible right acute/subacute frontoparietal CVA. 1.Acute hypoxic respiratory failure-, suspect multifactorial from bibasilar PNA/ diastolic CHF. currently saturating well on 2L NC. Completed abx course. 2. Leukcoytosis- trending up. likely due to steroids and not infectious however will do infectious workup to exclude infectious etiology. hold abx at this time 3. Acute metabolic toxic encephalopathy- due to infection and acute CVA. more alert today. hold sedating medications. 4. 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 continues to have nausea likely due to increased intracranial pressure vs HTN. no deficits. on mannitol and dex for intracranial swelling. will start tapering. frequent neurochecks. 5. HTN urgency-improved off labetolol ggt. cont labetolol IVP for elevated BP. on norvasc po. monitor as steroids dose decreased 6. Nausea- possible due to increased intracranial pressure vs HTN. refusing NGT placement. swallow evaluation. encourage po intake. cont tigan prn 7. Afib- new onset. rate controlled. on hep ggt. will hold off on starting NOAC once medically optimized. 8. hypokalemia-Kcl 10meq IV 9. sustained Vtach- no repeat episodes, Cardio on board 10. DVT ppx- hep ggt 11. MICU monitoring. guarded prognosis. pt refusing neurosurgery. DNI The care of this patient involved high complexity decision making to prevent further life threatening deterioration of the patient's condition and/or to evaluate & treat vital organ system(s) failure or risk of failure. 38 minutes
--- NOTE | 2017-09-14 14:53 | PN ---
Physical Exam: SUBJECTIVE: Patient seen and examined at bedside. Neurologically unchanged from yesterday. Patient states that she is able to eat she is just not wanting to. Patient states that she has been nauseous all night and vomited. Denies chest pain, shortness of breath. OBJECTIVE: Vital Signs Period Temp Pulse Resp BP Sys/Espinoza Pulse Ox Last 24 Hr 97.7 F-98.2 F 67-83 15-20 107-195/60-101 93-96 GENERAL: The patient is tired but awake, alert and oriented x3. No acute distress. HEAD: Normal with no signs of trauma. LUNGS: Breath sounds equal, clear to auscultation bilaterally, no wheezes, no crackles, no accessory muscle use. HEART: regular rate but irregular rhythem, S1, S2 without murmur, rub or gallop. ABDOMEN: Soft, nontender, nondistended, normoactive bowel sounds, no guarding, no rebound, no hepatosplenomegaly, no masses. EXTREMITIES: 2+ pulses, warm, well-perfused, no edema. NEUROLOGICAL: Cranial nerves II through XII grossly intact. motor strength 5/5 in both upper and lower extremities bilaterally, no sensory deficits noted PSYCH: altered, slightly agitated, lethargic SKIN: Warm, dry, normal turgor, no rashes or lesions noted Laboratory Results - last 24 hr 09/14/17 09/14/17 09/14/17 05:55 05:55 05:55 WBC 32.1 H* D RBC 5.14 Hgb 15.3 Hct 44.9 MCV 87.3 MCH 29.9 MCHC 34.2 RDW 12.5 Plt Count 400 MPV 8.0 Neutrophils % No Result Required. Neutrophils % (Manual) 92.2 H* Band Neutrophils % 0.0 Lymphocytes % No Result Required. Lymphocytes % (Manual) 2.0 L D Monocytes % (Manual) 4 Eosinophils % (Manual) 1.0 Basophils % (Manual) 0.0 Myelocytes % (Man) 0 Metamyelocytes 0 Hypochromia 0 Platelet Estimate Normal Platelet Comment Present Polychromasia 0 Poikilocytosis 2+ Anisocytosis 3+ Microcytosis 3+ Macrocytosis 0 PTT (Actin FS) 59.3 H Sodium 133 L Potassium 3.1 L Chloride 95 L Carbon Dioxide 26 Anion Gap 12 BUN 38 H Creatinine 0.8 Creat Clearance w eGFR > 60 Random Glucose 210 H Calcium 8.6 Phosphorus 3.9 Magnesium 2.3 Total Bilirubin 0.7 D AST 33 D ALT 42 D Alkaline Phosphatase 84 Total Protein 6.1 L Albumin 2.9 L Active Medications Generic Name Dose Route Start Last Admin Trade Name Freq PRN Reason Stop Dose Admin Acetaminophen 1,000 mg 09/11/17 07:43 09/11/17 15:07 Ofirmev Injection - IVPB 1,000 mg Q6H PRN Administration FEVER OR PAIN Albuterol Sulfate 1 amp 09/11/17 12:00 09/14/17 11:17 Ventolin 0.083% Nebulizer Soln - NEB 1 amp QIDR SHAHRAM Administration Amlodipine Besylate 10 mg 09/14/17 10:00 09/14/17 09:28 Norvasc - PO 10 mg DAILY SHAHRAM Administration Aspirin 81 mg 09/09/17 23:45 09/14/17 09:27 Asa - PO 81 mg DAILY SHAHRAM Administration Atorvastatin Calcium 80 mg 09/10/17 22:00 09/13/17 21:04 Lipitor - PO 80 mg HS SHAHRAM Administration Dexamethasone Sodium Phosphate 10 mg 09/14/17 10:00 09/14/17 09:29 Decadron Injection - IVPUSH 10 mg BID SHAHRAM Administration Enalaprilat 1.25 mg 09/14/17 15:00 Vasotec Injection - IVPB Q6H-IV SHAHRAM Heparin Sodium (Porcine) 1,000 unit 09/12/17 09:10 Heparin - IVPUSH PRN PRN Heparin Heparin Sodium (Porcine) 5,000 unit 09/12/17 09:10 Heparin - IVPUSH PRN PRN Heparin Labetalol HCl 1,000 mg/ 1,000 mls @ 120 mls/hr 09/11/17 08:28 09/14/17 13:29 Dextrose IV 1 mg/min TITR SHAHRAM 60 mls/hr Protocol Titration 2 MG/MIN Heparin Sodium/Dextrose 25,000 units in 500 mls @ 16 mls/hr 09/12/17 09:15 08:50 Heparin Infusion - IVPB 900 units/hr TITR SHAHRAM 18 mls/hr Protocol Administration 800 UNITS/HR Labetalol HCl 10 mg 09/11/17 08:29 09/14/17 12:33 Normodyne Injection - IVPUSH 10 mg Q3H PRN Administration HYPERTENSION Lidocaine/Aluminum/Magnesium/Simeth 5 ml 09/14/17 12:00 Magic Mouthwash *Sjr Formula* - MM Q6HPO SHAHRAM Mannitol 12.5 gm 09/12/17 20:30 09/14/17 08:51 Osmitrol - IVPB 12.5 gm Q6H-IV SHAHRAM Administration Metoclopramide HCl 10 mg 09/11/17 12:05 09/14/17 02:49 Reglan Injection - IVPUSH 10 mg Q6H PRN Administration NAUSEA AND/OR VOMITING Ondansetron HCl 8 mg 09/12/17 14:44 09/14/17 12:50 Zofran Injection IVPB 8 mg Q6H PRN Administration NAUSEA AND/OR VOMITING Potassium Chloride 20 meq 09/14/17 14:44 Potassium Chloride 20 Meq Premix Ivpb - IVPB 09/14/17 14:45 ONCE ONE Sucralfate 1 gm 09/13/17 10:15 09/14/17 09:30 Carafate Oral Suspension - PO 1 gm BID SHAHRAM Administration MRI BRAIN WITHOUT CONTRAST: 1. Acute right middle cerebral artery territory infarction involving the temporoparietal lobes extending into the posterior insular cortex, with local mass effects as described above. No midline shift or herniation pattern. 2. Acute right PICA territory infarction with local sulcal effacement and partial effacement of the fourth ventricle outflow tract. No cerebellar herniation pattern or hydrocephalus at this time. 3. Generalized, age -related volume loss and moderately severe chronic microvascular ischemic changes with clinical coronary infarct as described above. Focus of hemosiderin in the left cerebellum reflecting the sequela of prior petechial microhemorrhages, likely secondary to hypertension. MRA [place] - 1. Absence of flow in the right posterior-inferior cerebral artery which is most likely due to occlusion given the large right cerebellar infarct. 2. Mild luminal narrowing in the M1 and M2 segments of the right MCA with attenuated flow in the inferior M2 division. No occlusion in the central arteries of the [place]. 3. 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 4. Attenuated flow in the P2 and P3 segments of the right [employer] may be secondary to slow flow. CT HEAD (09/12/17): Interval slight worsening mass effect of previously visualized evolving large right cerebellar subacute infarct with effacement of the right posterior lateral basal cisterns and mild mass effect on the stem/ medulla oblongata as well as mild mass effect slightly narrowing the fourth ventricle. No acute intracranial hemorrhage is identified. Stable involving the right posterior temporal/frontal/parietal subacute infarct. Continued follow-up is needed. ASSESSMENT/PLAN: 82 year old female with a past medical history of hypertension, CHF, hyperlipidemia admitted to the ICU for sepsis 2/2 pneumonia, hypertensive emergency, and ischemic stroke. #Ischemic Stroke: condition stable, no neurological deficits noted -Continue asa 81mg QD -continue atorvastatin 80mg -not eating much per nurse, appreciate Speech/Swallow consult. Swallowing intact. -keep blood pressure low <140 -appreciate neuro, neurosurg, and cardiology recommendations -patient has increasing mass effect, refuses craniotomy to primary team, neurosurg reassessment also agrees no need for surgery. -physiatry consult -continue heparin, consider changing to NOAC/Coumadin PO -decadron reduced to BID dose. Decrease every 3 days. -given tigan for nausea #Atrial Fibrillation: rate is in the 80's, no more palpitations -Patient's aspirin 81mg continued -continue atorvastatin 80mg -continue nabivolol and labetalol IV PRN in ICU to control rate, can titrate with labetalol drip if necessary to reduce BP #Sepsis-like picture: patient has a leukocytosis of 32 -blood cx -CXR -urine culture -Patient previously finished 7 days of ceftriaxone for pneumonia #Hypertensive Emergency: BP very labile -frequent BP checks, give the following medications -continue labetalol 10mg IV Q6h PRN -continue bystolic (nebivolol) 20mg PO QD -continue cozaar (50mg PO QD) -can give labetalol drip and titrate to <140 if pt emergently hypertensive -echocardiogram is within normal limits #Hyperkalemia: potassium low today -replete as necessary #FEN: -no standing fluids -replete lytes as necessary -soft #Prophylaxis -continue IV heparin drip #Disposition -Continue to monitor on telemetry Visit type - Emergency Visit Emergency Visit: No - New Patient This patient is new to me today: No - Critical Care Critical Care patient: Yes Total Critical Care Time (in minutes): 35 Critical Care Statement: The care of this patient involved high complexity decision making to prevent further life threatening deterioration of the patient 's condition and/or to evaluate & treat vital organ system(s) failure or risk of failure.
[2017-09-14] MEDS: ENALAPRILAT DIHYDRATE 1.25 MG/1 ML VIAL IVPB SCH ×2 (15:00→22:11)
[2017-09-14] MEDS: KCL 20 MEQ PREMIX BAG 100 ML IVPB SCH ×3 (15:53→22:11)
--- NOTE | 2017-09-14 19:22 | PN ---
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 (short form) - Note 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: NEUROLOGY FOLLOW-UP Events reviewed and discussed with RN. On Ceftriaxone, Heparin, Mannitol and decadrom. Random BG's > 200 mg% Still requiring labetalol for labile BP Taking PO without difficulty but still c/o low-grade nausea. EXAM: Awake., alert, Ox 3 Fluent Good gag. Full visual wilhelm Moves all 4's well. Normal and symmetrical grasps. IMP: Doing extremely well s/p multiple CVA's New onset AFib. SUGGEST: D/C mannitol and decadrom. Stabilize on oral BP Regimen Begin warfarin or a NOAC and d/c Heparin. Begin bedside PT and Mobilize OO Bed to chair. Thank you very much, Suman Pérez MD
[2017-09-14] MEDS: ATORVASTATIN CA 80 MG TABLET (FP) PO SCH (22:12)
[2017-09-14] MEDS: ACETAMINOPHEN 1000 MG/100 ML VIAL (NON FORMULARY) IVPB PRN (22:12)
[2017-09-15] MEDS: ALBUTEROL SO4 0.083% IH SOL 2.5 MG/3 ML VIAL.NEB. NEB SCH ×5 (00:50→23:10)
[2017-09-15] MEDS: ENALAPRILAT DIHYDRATE 1.25 MG/1 ML VIAL IVPB SCH ×3 (03:00→14:54)
[2017-09-15 06:19] LABS: BASO % 0.3 % (0-2.0); EOS % 0.1 % (0-4.5); HEMATOCRIT 44.8 % (32.4-45.2); LYMPH % 5.1 % (8-40); MCH 29.2 pg (25.7-33.7); MCHC 33.5 g/dl (32.0-36.0); MEAN CELL VOLUME 87.3 fl (80-96); MEAN PLT VOLUME 8.2 fl (7.5-11.1); MONO % 15.5 % (3.8-10.2); PLATELET COUNT 335 K/MM3 (134-434); RBC 5.13 M/mm3 (3.60-5.2); RDW 12.8 % (11.6-15.6)
[2017-09-15] MEDS: MAG HYDROX/ALH/SMC/DPHA/LIDO 240 ML MOUTHWASH MM SCH ×4 (06:21→18:58)
[2017-09-15 06:42] LABS: ALBUMIN 2.7 g/dl (3.4-5.0); ANION GAP 11 (8-16); BLOOD UREA NITROGEN 39 mg/dL (7-18); CALCIUM 8.4 mg/dL (8.5-10.1); CHLORIDE 97 mmol/L (98-107); CO2 25 mmol/L (21-32); CREATININE 0.9 mg/dL (0.55-1.02); GLUCOSE,RANDOM 174 mg/dL (74-106); MAGNESIUM 2.1 mg/dL (1.8-2.4); PHOSPHOROUS 3.1 mg/dL (2.5-4.9); SGOT/AST 17 U/L (15-37); SGPT/ALT 37 U/L (12-78); SODIUM 133 mmol/L (136-145)
[2017-09-15 06:44] LABS: ALK PHOS 75 U/L (45-117); BILIRUBIN,TOTAL 0.8 mg/dL (0.2-1.0); TOT PROT 5.5 g/dl (6.4-8.2)
--- NOTE | 2017-09-15 09:05 | PN ---
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 (short form) - Note 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: NEUROSURGERY Denies H/A PE: SBP 130-150's HEENT- NC/AT; Neck- supple; Cor- Irreg; Lungs- CTA B; Abd- benign, + BS; Ext- no sign of DVT Drowsy but easily arousable; oriented x2-3; following command CN- intact; Motor- 4+/5 B UE/LE, moderate R dysmetria, mild L hemineglect; Sensation- intact LT; DTR- hyporeflexic; toes equivocal Head CT (08-07; 08-11 through 08-13): evolution of R MCA and R PICA ischemic stroke; increased mass effect/edema of R PICA > R MCA stroke with some mass effect at skull base; no significant midline shift; no hemorrhagic transformation; no HCP; on 09-12 scan with mild posterior basal cistern narrowing and skull base cerebellar edema and mass effect R MCA and R PICA ischemic infarct and no hemorrhagic transformation On heparin, consider converting to an oral agent with available reversal Stable neurologically HOB elevation 30 degrees PT- rehab
--- NOTE | 2017-09-15 09:56 | PN ---
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 (short form) - Note 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: resting comfortable Current Medications Generic Name Dose Route Start Last Admin Trade Name Freq PRN Reason Stop Dose Admin Acetaminophen 1,000 mg 09/11/17 07:43 09/14/17 22:12 Ofirmev Injection - IVPB 1,000 mg Q6H PRN Administration FEVER OR PAIN Albuterol Sulfate 1 amp 09/11/17 12:00 09/15/17 07:30 Ventolin 0.083% Nebulizer Soln - NEB 1 amp QIDR SHAHRAM Administration Amlodipine Besylate 10 mg 09/14/17 10:00 09/14/17 09:28 Norvasc - PO 10 mg DAILY SHAHRAM Administration Aspirin 81 mg 09/09/17 23:45 09/14/17 09:27 Asa - PO 81 mg DAILY SHAHRAM Administration Atorvastatin Calcium 80 mg 09/10/17 22:00 09/14/17 22:12 Lipitor - PO 80 mg HS SHAHRAM Administration Enalaprilat 1.25 mg 09/14/17 15:00 09/15/17 03:00 Vasotec Injection - IVPB 1.25 mg Q6H-IV SHAHRAM Administration Heparin Sodium (Porcine) 1,000 unit 09/12/17 09:10 Heparin - IVPUSH PRN PRN Heparin Heparin Sodium (Porcine) 5,000 unit 09/12/17 09:10 Heparin - IVPUSH PRN PRN Heparin Labetalol HCl 1,000 mg/ 1,000 mls @ 120 mls/hr 09/11/17 08:28 09/14/17 13:29 Dextrose IV 1 mg/min TITR SHAHRAM 60 mls/hr Protocol Titration 2 MG/MIN Heparin Sodium/Dextrose 25,000 units in 500 mls @ 16 mls/hr 09/12/17 09:15 07:40 Heparin Infusion - IVPB 900 units/hr TITR SHAHRAM 18 mls/hr Protocol Titration 800 UNITS/HR Labetalol HCl 10 mg 09/11/17 08:29 09/14/17 12:33 Normodyne Injection - IVPUSH 10 mg Q3H PRN Administration HYPERTENSION Lidocaine/Aluminum/Magnesium/Simeth 5 ml 09/14/17 12:00 09/15/17 06:21 Magic Mouthwash *Sjr Formula* - MM Not Given Q6HPO SHAHRAM Metoclopramide HCl 10 mg 09/11/17 12:05 09/14/17 02:49 Reglan Injection - IVPUSH 10 mg Q6H PRN Administration NAUSEA AND/OR VOMITING Ondansetron HCl 8 mg 09/12/17 14:44 09/14/17 17:46 Zofran Injection IVPB 8 mg Q6H PRN Administration NAUSEA AND/OR VOMITING Sucralfate 1 gm 09/13/17 10:15 09/14/17 22:11 Carafate Oral Suspension - PO Not Given BID SHAHRAM Last Vital Signs Temp Pulse Resp BP Pulse Ox 98.2 F 80 16 154/82 95 09/15/17 06:00 09/15/17 06:00 09/15/17 06:00 09/15/17 06:00 09/14/17 20:17 Intake & Output 09/12/17 09/13/17 09/14/17 09/15/17 23:59 23:59 23:59 23:59 Intake Total 1122 2476 1400 266 Output Total 200 Balance 922 2476 1400 266 Weight 118 lb 8 oz 117 lb 11.2 oz 117 lb 1.6 oz 115 lb 3.2 oz General lethargic, opens eye to verbal stimuli CV S1 S2 irregular Lungs decreased breath sounds anteriorly Abdomen soft NT/ND Extremities no pedal edema neuro moves all 4 extremities. sensation grossly intact CBCD WBC 31.0 K/mm3 (4.0-10.0) H* 09/15/17 05:55 RBC 5.13 M/mm3 (3.60-5.2) 09/15/17 05:55 Hgb 15.0 GM/dL (10.7-15.3) 09/15/17 05:55 Hct 44.8 % (32.4-45.2) 09/15/17 05:55 MCV 87.3 fl (80-96) 09/15/17 05:55 MCHC 33.5 g/dl (32.0-36.0) 09/15/17 05:55 RDW 12.8 % (11.6-15.6) 09/15/17 05:55 Plt Count 335 K/MM3 (134-434) 09/15/17 05:55 MPV 8.2 fl (7.5-11.1) 09/15/17 05:55 CMP Sodium 133 mmol/L (136-145) L 09/15/17 05:55 Potassium 4.0 mmol/L (3.5-5.1) D 09/15/17 05:55 Chloride 97 mmol/L (98-107) L 09/15/17 05:55 Carbon Dioxide 25 mmol/L (21-32) 09/15/17 05:55 Anion Gap 11 (8-16) 09/15/17 05:55 BUN 39 mg/dL (7-18) H 09/15/17 05:55 Creatinine 0.9 mg/dL (0.55-1.02) 09/15/17 05:55 Creat Clearance w eGFR 59.65 (>60) 09/15/17 05:55 Calcium 8.4 mg/dL (8.5-10.1) L 09/15/17 05:55 Total Bilirubin 0.8 mg/dL (0.2-1.0) 09/15/17 05:55 AST 17 U/L (15-37) D 09/15/17 05:55 ALT 37 U/L (12-78) 09/15/17 05:55 Alkaline Phosphatase 75 U/L (45-117) 09/15/17 05:55 Total Protein 5.5 g/dl (6.4-8.2) L 09/15/17 05:55 Albumin 2.7 g/dl (3.4-5.0) L 09/15/17 05:55 ASSESSMENT AND PLAN: 82 yo F with PMHx of HTN, HLD, admitted with shortness of breath, likely LLL CAP with sepsis, with component of acute diastolic heart failure, hypertensive urgency and Possible right acute/subacute frontoparietal CVA. 1.Acute hypoxic respiratory failure-, suspect multifactorial from bibasilar PNA/ diastolic CHF. currently saturating well on 2L NC. Completed abx course. 2. Leukcoytosis- stable. afebrile. CXR clear. BCx pending. doubt this is infectious, most likely due to steroids. now d/c. hold abx at this time 3. Acute metabolic toxic encephalopathy- due to infection and acute CVA. more lethargic today. opens eyes to verbal stimuli. as per RN she was alert all through the night and finally settled to sleep. close neuro monitoring, frequent neurochecks. low threshold for repeat imaging. hold sedating medications. 4. 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 continues to have nausea likely due to increased intracranial pressure vs HTN. no deficits. both mannitol and dex have been d/c. frequent neurochecks. 5. HTN urgency- off labetolol ggt but on intermittently more due to pt unable to tolerate oral meds. will encourage po intake. 6. Nausea- possible due to increased intracranial pressure vs HTN. refusing NGT placement. minimal po intake. encourage po intake. cont tigan/reglan prn 7. Afib- new onset. rate controlled. on hep ggt. will hold off on starting NOAC once medically optimized. wont likely be able to tolerate 8. hypokalemia-resolved 9. sustained Vtach- no repeat episodes, Cardio on board 10. DVT ppx- hep ggt 11. MICU monitoring. guarded prognosis. pt refusing neurosurgery. DNI Visit type - Emergency Visit Emergency Visit: Yes ED Registration Date: 09/06/17 Care time: The patient presented to the Emergency Department on the above date and was hospitalized for further evaluation of their emergent condition. - New Patient This patient is new to me today: No - Critical Care Critical Care patient: Yes Total Critical Care Time (in minutes): 40 Critical Care Statement: The care of this patient involved high complexity decision making to prevent further life threatening deterioration of the patient 's condition and/or to evaluate & treat vital organ system(s) failure or risk of failure. - Discharge Referral Referred to [facility] No
[2017-09-15] MEDS: amLODIPine BESYLATE 10 MG TABLET (FP) PO SCH (10:09)
[2017-09-15] MEDS: ASPIRIN 81 MG CHEWABLE TABLETS PO SCH (10:09)
[2017-09-15] MEDS: HEPARIN INFUSION - 25,000 UNITS/500 ML INFUS.BAG IVPB SCH (10:10)
[2017-09-15] MEDS: SUCRALFATE 1 GM/10 ML UNIT DOSE CUPS PO SCH (10:12)
[2017-09-15] MEDS: ONDANSETRON 4 MG/2 ML VIAL IVPB PRN (10:41)
--- NOTE | 2017-09-15 10:50 | PN ---
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 (short form) - Note 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: Seen and examined in the ICU Cont to have waxing and waning mental status Cont to c/o nausea Current Medications Acetaminophen (Ofirmev Injection -) 1,000 mg IVPB Q6H PRN PRN Reason: FEVER OR PAIN Last Admin: 09/14/17 22:12 Dose: 1,000 mg Albuterol Sulfate (Ventolin 0.083% Nebulizer Soln -) 1 amp NEB QIDR SHAHRAM Last Admin: 09/15/17 07:30 Dose: 1 amp Amlodipine Besylate (Norvasc -) 10 mg PO DAILY SHA[facility]AM Last Admin: 09/15/17 10:09 Dose: 10 mg Aspirin (Asa -) 81 mg PO DAILY [facility]AM Last Admin: 09/15/17 10:09 Dose: 81 mg Atorvastatin Calcium (Lipitor -) 80 mg PO HS [facility] Last Admin: 09/14/17 22:12 Dose: 80 mg Dexamethasone Sodium Phosphate (Decadron Injection -) 4 mg IVPB BID SHAHRAM Enalaprilat (Vasotec Injection -) 1.25 mg IVPB Q6H-IV SHA[facility]AM Last Admin: 09/15/17 10:11 Dose: 1.25 mg Heparin Sodium (Porcine) (Heparin -) 1,000 unit IVPUSH PRN PRN PRN Reason: Heparin Heparin Sodium (Porcine) (Heparin -) 5,000 unit IVPUSH PRN PRN PRN Reason: Heparin Heparin Sodium/Dextrose (Heparin Infusion -) 25,000 units in 500 mls @ 16 mls/ hr IVPB TITR SHAHRAM; 800 UNITS/HR PRN Reason: Protocol Last Admin: 09/15/17 10:10 Dose: 900 units/hr, 18 mls/hr Labetalol HCl (Normodyne Injection -) 10 mg IVPUSH Q3H PRN PRN Reason: HYPERTENSION Last Admin: 09/14/17 12:33 Dose: 10 mg Lidocaine/Aluminum/Magnesium/Simeth (Magic Mouthwash *Sjr Formula* -) 5 ml MM Q6HPO SHAHRAM Last Admin: 09/15/17 06:21 Dose: Not Given Metoclopramide HCl (Reglan Injection -) 10 mg IVPUSH Q6H PRN PRN Reason: NAUSEA AND/OR VOMITING Last Admin: 09/14/17 02:49 Dose: 10 mg Ondansetron HCl (Zofran Injection) 8 mg IVPB Q6H PRN PRN Reason: NAUSEA AND/OR VOMITING Last Admin: 09/14/17 17:46 Dose: 8 mg Sucralfate (Carafate Oral Suspension -) 1 gm PO BID SHAHRAM Last Admin: 09/15/17 10:12 Dose: 1 gm Vital Signs Period Temp Pulse Resp BP Sys/Espinoza Pulse Ox Last 24 Hr 97.7 F-98.2 F 70-89 15-18 105-189/59-101 95 Intake & Output 09/12/17 09/13/17 09/14/17 09/15/17 23:59 23:59 23:59 23:59 Intake Total 1122 2476 1400 266 Output Total 200 Balance 922 2476 1400 266 Weight 53.751 kg 53.388 kg 53.116 kg 52.254 kg Exam: General: in bed eyes closed, answering some questions HEENT: PERRL, no JVD CV: irr, irr Pulm: CTA Abd: SNTND Ext: WWP Neuro: FLOWERS CBCD WBC 31.0 K/mm3 (4.0-10.0) H* 09/15/17 05:55 RBC 5.13 M/mm3 (3.60-5.2) 09/15/17 05:55 Hgb 15.0 GM/dL (10.7-15.3) 09/15/17 05:55 Hct 44.8 % (32.4-45.2) 09/15/17 05:55 MCV 87.3 fl (80-96) 09/15/17 05:55 MCHC 33.5 g/dl (32.0-36.0) 09/15/17 05:55 RDW 12.8 % (11.6-15.6) 09/15/17 05:55 Plt Count 335 K/MM3 (134-434) 09/15/17 05:55 MPV 8.2 fl (7.5-11.1) 09/15/17 05:55 CMP Sodium 133 mmol/L (136-145) L 09/15/17 05:55 Potassium 4.0 mmol/L (3.5-5.1) D 09/15/17 05:55 Chloride 97 mmol/L (98-107) L 09/15/17 05:55 Carbon Dioxide 25 mmol/L (21-32) 09/15/17 05:55 Anion Gap 11 (8-16) 09/15/17 05:55 BUN 39 mg/dL (7-18) H 09/15/17 05:55 Creatinine 0.9 mg/dL (0.55-1.02) 09/15/17 05:55 Creat Clearance w eGFR 59.65 (>60) 09/15/17 05:55 Random Glucose 174 mg/dL (74-106) H 09/15/17 05:55 Calcium 8.4 mg/dL (8.5-10.1) L 09/15/17 05:55 Total Bilirubin 0.8 mg/dL (0.2-1.0) 09/15/17 05:55 AST 17 U/L (15-37) D 09/15/17 05:55 ALT 37 U/L (12-78) 09/15/17 05:55 Alkaline Phosphatase 75 U/L (45-117) 09/15/17 05:55 Total Protein 5.5 g/dl (6.4-8.2) L 09/15/17 05:55 Albumin 2.7 g/dl (3.4-5.0) L 09/15/17 05:55 CARDIAC ENZYMES Creatine Kinase 114 IU/L (26-192) 09/06/17 12:29 Troponin I < 0.02 ng/ml (0.00-0.05) 09/09/17 23:30 Microbiology 09/06/17 12:29 Blood - Peripheral Venous Blood Culture - Final NO GROWTH AFTER 5 DAYS INCUBATION 09/06/17 12:29 Blood - Peripheral Venous Blood Culture - Final NO GROWTH AFTER 5 DAYS INCUBATION 09/09/17 09:50 Urine - Urine Clean Catch Legionella Antigen - Final 09/09/17 09:50 Urine - Urine Clean Catch Streptococcus pneumoniae Antigen ( M - Final 09/06/17 15:00 Urine - Urine Clean Catch Urine Culture - Final NO GROWTH OBTAINED 09/06/17 16:00 Nasopharyngeal Swab Influenza Types A,B Antigen (TORRES) - Final 09/06/17 16:00 Nasopharyngeal Swab - Final IMP: Altered Mental Status Acute/Subacute CVA Pneumonia Bilateral Pleural Effusions HTN Hyperlipidemia P AFib PLAN; Titrate BP meds, increase PO meds to wean off drip c/b nausea IV Heparin drip per protocol with close monitoring of PTT wean steroids per neurology PO as tolerated Aspiration precautions HOB @ 30 degrees SCDs Monitor off ABX ICU monitoring Boerem ACNP Pulm/CCM CCT: 35
[2017-09-15] MEDS: DEXAMETHASONE SOD PHOSPHATE 4 MG/1 ML VIAL IVPB SCH (11:21)
--- NOTE | 2017-09-15 12:36 | PN ---
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 Illness: Seen and examined Covering Dr. Coyne No events overnight Tele: Afib 60-70s - Current Medication List Current Medications: Active Medications Acetaminophen (Ofirmev Injection -) 1,000 mg IVPB Q6H PRN PRN Reason: FEVER OR PAIN Last Admin: 09/14/17 22:12 Dose: 1,000 mg Albuterol Sulfate (Ventolin 0.083% Nebulizer Soln -) 1 amp NEB QIDR SHAHRAM Last Admin: 09/15/17 11:57 Dose: Not Given Amlodipine Besylate (Norvasc -) 10 mg PO DAILY SHAHRAM Last Admin: 09/15/17 10:09 Dose: 10 mg Aspirin (Asa -) 81 mg PO DAILY [facility]AM Last Admin: 09/15/17 10:09 Dose: 81 mg Atorvastatin Calcium (Lipitor -) 80 mg PO HS [facility] Last Admin: 09/14/17 22:12 Dose: 80 mg Dexamethasone Sodium Phosphate (Decadron Injection -) 4 mg IVPB BID SHAHRAM Last Admin: 09/15/17 11:21 Dose: 4 mg Enalaprilat (Vasotec Injection -) 1.25 mg IVPB Q6H-IV SHAHRAM Last Admin: 09/15/17 10:11 Dose: 1.25 mg Heparin Sodium (Porcine) (Heparin -) 1,000 unit IVPUSH PRN PRN PRN Reason: Heparin Heparin Sodium (Porcine) (Heparin -) 5,000 unit IVPUSH PRN PRN PRN Reason: Heparin Heparin Sodium/Dextrose (Heparin Infusion -) 25,000 units in 500 mls @ 16 mls/ hr IVPB TITR SHAHRAM; 800 UNITS/HR PRN Reason: Protocol Last Admin: 09/15/17 10:10 Dose: 900 units/hr, 18 mls/hr Labetalol HCl (Normodyne Injection -) 10 mg IVPUSH Q3H PRN PRN Reason: HYPERTENSION Last Admin: 09/14/17 12:33 Dose: 10 mg Lidocaine/Aluminum/Magnesium/Simeth (Magic Mouthwash *Sjr Formula* -) 5 ml MM Q6HPO SHAHRAM Last Admin: 09/15/17 06:21 Dose: Not Given Metoclopramide HCl (Reglan Injection -) 10 mg IVPUSH Q6H PRN PRN Reason: NAUSEA AND/OR VOMITING Last Admin: 09/14/17 02:49 Dose: 10 mg Sucralfate (Carafate Oral Suspension -) 1 gm PO BID SHAHRAM Last Admin: 09/15/17 10:12 Dose: 1 gm - Objective Vital Signs: Vital Signs Temperature 98.2 F 09/15/17 06:00 Pulse Rate 80 09/15/17 08:00 Respiratory Rate 16 09/15/17 09:00 Blood Pressure 168/78 09/15/17 08:00 O2 Sat by Pulse Oximetry (%) 95 09/15/17 09:00 Constitutional: Yes: No Distress Eyes: Yes: WNL Neck: Yes: Supple Cardiovascular: Yes: Pulse Irregular Respiratory: Yes: CTA Bilaterally Gastrointestinal: Yes: Normal Bowel Sounds Extremities: Yes: WNL Edema: No Labs: CBC, BMP 09/15/17 05:55 09/15/17 05:55 INR, PTT INR 1.13 (0.82-1.09) 09/12/17 06:20 Assessment/Plan 82 year old female with a past medical history of hypertension, CHF, hyperlipidemia admitted to the ICU for sepsis 2/2 pneumonia, hypertensive emergency, and ischemic stroke. 1) Ischemic Stroke: -condition stable, no neurological deficits noted -Continue asa 81mg QD -continue atorvastatin 80mg 2) Atrial Fibrillation: rate is in the 80's-90s on tele -Patient's aspirin 81mg continued -continue atorvastatin 80mg -continue nabivolol 3) Hypertensive Emergency: BP very labile better -Would transition to PO Vasotec -Continue amlodipine 10mg -Neuro may want higher MAP in setting of ischemic CVA
--- NOTE | 2017-09-15 13:36 | PN ---
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 (short form) - Note 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: Seen in CCU. Patient remains awake,lethargic, nauseous, dizziness, BP continuous to fluctuate. Remains in atrial fib. with controlled ventricular response. C/o abdominal distention. She started to cry and feels she is not getting better. Active Medications Acetaminophen (Ofirmev Injection -) 1,000 mg IVPB Q6H PRN PRN Reason: FEVER OR PAIN Last Admin: 09/14/17 22:12 Dose: 1,000 mg Albuterol Sulfate (Ventolin 0.083% Nebulizer Soln -) 1 amp NEB QIDR [facility] Last Admin: 09/15/17 11:57 Dose: Not Given Amlodipine Besylate (Norvasc -) 10 mg PO DAILY [facility] Last Admin: 09/15/17 10:09 Dose: 10 mg Aspirin (Asa -) 81 mg PO DAILY [facility] Last Admin: 09/15/17 10:09 Dose: 81 mg Atorvastatin Calcium (Lipitor -) 80 mg PO HS [facility] Last Admin: 09/14/17 22:12 Dose: 80 mg Dexamethasone Sodium Phosphate (Decadron Injection -) 4 mg IVPB BID [facility] Last Admin: 09/15/17 11:21 Dose: 4 mg Enalaprilat (Vasotec Injection -) 1.25 mg IVPB Q6H-IV [facility]AM Last Admin: 09/15/17 10:11 Dose: 1.25 mg Heparin Sodium (Porcine) (Heparin -) 1,000 unit IVPUSH PRN PRN PRN Reason: Heparin Heparin Sodium (Porcine) (Heparin -) 5,000 unit IVPUSH PRN PRN PRN Reason: Heparin Heparin Sodium/Dextrose (Heparin Infusion -) 25,000 units in 500 mls @ 16 mls/ hr IVPB TITR SHAHRAM; 800 UNITS/HR PRN Reason: Protocol Last Admin: 09/15/17 10:10 Dose: 900 units/hr, 18 mls/hr Labetalol HCl (Normodyne Injection -) 10 mg IVPUSH Q3H PRN PRN Reason: HYPERTENSION Last Admin: 09/14/17 12:33 Dose: 10 mg Lidocaine/Aluminum/Magnesium/Simeth (Magic Mouthwash *Sjr Formula* -) 5 ml MM Q6HPO [facility] Last Admin: 09/15/17 06:21 Dose: Not Given Metoclopramide HCl (Reglan Injection -) 10 mg IVPUSH Q6H PRN PRN Reason: NAUSEA AND/OR VOMITING Last Admin: 09/14/17 02:49 Dose: 10 mg Sucralfate (Carafate Oral Suspension -) 1 gm PO BID SHAHRAM Last Admin: 09/15/17 10:12 Dose: 1 gm 82 year old female is lethargic but alert. No pallor or cyanosis, clubbing or jaundice. poor skin turgor Last Vital Signs Temp Pulse Resp BP Pulse Ox 98.1 F 75 irregular 18 165/77 95 09/15/17 10:00 09/15/17 12:00 09/15/17 12:00 09/15/17 12:00 09/15/17 09:00 NECK: Supple, no JVD, No HJR, carotids are 2+, no bruits are heard. HEART: PMI is in 5th ICS, no heaves or thrills. S1 and S2 are normal. No murmur or gallops were heard. LUNGS: Fine creps. at the right base. ABDOMEN: Soft, nontender, no organomegaly or palpable masses felt. EXTREMITIES: No calf tenderness or dependent edema. [employer]PHOL[employer]: lethargic, easily arousable, no gross localizing signs. CBC, BMP 09/15/17 05:55 09/15/17 05:55 IMPRESSION: 1. Leukocytosis, etiology; a). Secondary to steroids. b). Infectious process needs to be excluded. 2. Hypertension/HCVD, poorly controlled. 3. Depression, multifactorial: a). Steroids. b). ICU syndrome. c). Recent CVAs. 5. Vertigo secondary to cerebellar CVA. 4. Multiple CVAs, probable embolic.. 6. Hypercholestrolemia. 7. Nausea and vomiting, etiology: secondary to increased intracranial pressure. 8. S/p CHF. 9. Dehydration. . Recommendations: 1. Increase dose of Amlodipine to 10mg. if she remains hypertensive. 2. Check with Dr. Pérez regarding antidepressants. 3. Caloric and fluid replacement. 4. If possible OOB in a chair or recliner once vertigo subsides. 5. May require a laxative. 6. Consider Antivert. Prognosis: Critical. Problem List - Problems (1) Sepsis Code(s): A41.9 - SEPSIS, UNSPECIFIED ORGANISM (2) Accelerated hypertension Code(s): I10 - ESSENTIAL (PRIMARY) HYPERTENSION (3) Ventricular premature beats, contractions, or systoles Code(s): I49.3 - VENTRICULAR PREMATURE DEPOLARIZATION (4) Altered mental status Code(s): R41.82 - ALTERED MENTAL STATUS, UNSPECIFIED Qualifiers: Altered mental status type: transient alteration of awareness Qualified Code(s): R40.4 - Transient alteration of awareness (5) Pneumonia Code(s): J18.9 - PNEUMONIA, UNSPECIFIED ORGANISM Qualifiers: Pneumonia type: due to unspecified organism Laterality: left Lung location: lower lobe of lung Qualified Code(s): J18.1 - Lobar pneumonia, unspecified organism (6) Left ventricular failure Code(s): I50.1 - LEFT VENTRICULAR FAILURE, UNSPECIFIED
[2017-09-16] MEDS: ENALAPRILAT DIHYDRATE 1.25 MG/1 ML VIAL IVPB SCH ×5 (04:00→22:22)
[2017-09-16] MEDS: LABETALOL HCL 5 MG/1 ML (100MG/20 ML VIAL) IVPUSH PRN (04:00)
[2017-09-16 06:26] LABS: MCH 29.2 pg (25.7-33.7); MCHC 33.3 g/dl (32.0-36.0); MEAN CELL VOLUME 87.6 fl (80-96); MEAN PLT VOLUME 8.2 fl (7.5-11.1); PLATELET COUNT 312 K/MM3 (134-434); RBC 5.48 M/mm3 (3.60-5.2); RDW 12.7 % (11.6-15.6); WHITE BLOOD COUNT 28.5 K/mm3 (4.0-10.0)
[2017-09-16] MEDS: ALBUTEROL SO4 0.083% IH SOL 2.5 MG/3 ML VIAL.NEB. NEB SCH (06:50)
[2017-09-16] MEDS: MAG HYDROX/ALH/SMC/DPHA/LIDO 240 ML MOUTHWASH MM SCH ×3 (07:33→17:25)
[2017-09-16] MEDS ORDERED: MECLIZINE HCL 12.5 MG TABLET PO PRN (08:33)
--- NOTE | 2017-09-16 08:35 | PN ---
Teaching Attending Note Name of Resident: Andrzej Mcguire ATTENDING PHYSICIAN STATEMENT I saw and evaluated the patient. I reviewed the resident's note and discussed the case with the resident. I agree with the resident's findings and plan as documented. SUBJECTIVE:continues to be nauseated. c/o dizzyness when she opens her eyes or attempts to sit up. denies CP, SOB, fever, chills, N/V/C/D as per pt she feels better when her BP is higher. OBJECTIVE: Last Vital Signs Temp Pulse Resp BP Pulse Ox 98 F 80 18 165/85 96 09/15/17 22:00 09/16/17 06:00 09/16/17 06:00 09/16/17 06:00 09/15/17 21:00 Intake & Output 09/13/17 09/14/17 09/15/17 09/16/17 23:59 23:59 23:59 23:59 Intake Total 2476 1400 1098 Balance 2476 1400 1098 Weight 117 lb 11.2 oz 117 lb 1.6 oz 115 lb 3.2 oz General lethargic CV s1 s2 irregular no murmur/rub/galllop Lungs CTA anteriorly ASSESSMENT AND PLAN: 82 yo F with PMHx of HTN, HLD, admitted with shortness of breath, likely LLL CAP with sepsis, with component of acute diastolic heart failure, hypertensive urgency and Possible right acute/subacute frontoparietal CVA. 1.Acute hypoxic respiratory failure-suspect multifactorial from bibasilar PNA/ diastolic CHF. currently saturating well on 2L NC. Completed abx course. 2. Leukcoytosis- now trending down. afebrile. likely due to steroids. sepsis workup negative. no indication for steroids. 3. Acute metabolic toxic encephalopathy- due to infection and acute CVA. sleepy on my exam, as per RN she is alert and oriented when awake. as per RN when shes awake she is more nauseated and dizzy. close neuro monitoring, frequent neurochecks. low threshold for repeat imaging. hold sedating medications. 4. Acute R PICA with local mass effect-continues to have nausea and now dizzyness most likely from increased intracranial pressure. started back on dex yesterday. meclizine prn for dizzyness. frequent neurochecks. 5. HTN urgency- improved but very labile. on norvasc and labetolol IVP prn. 6. Nausea- possible due to increased intracranial pressure vs HTN. refusing NGT placement. minimal po intake. encourage po intake. cont tigan/reglan prn 7. Afib- new onset. rate controlled. on hep ggt. will hold off on starting NOAC once medically optimized. wont likely be able to tolerate po 8. hypokalemia-resolved 9. sustained Vtach- no repeat episodes, Cardio on board 10. DVT ppx- hep ggt 11. MICU monitoring. guarded prognosis. pt refusing neurosurgery. DNI The care of this patient involved high complexity decision making to prevent further life threatening deterioration of the patient's condition and/or to evaluate & treat vital organ system(s) failure or risk of failure. 38 minutes
[2017-09-16] MEDS: DEXAMETHASONE SOD PHOSPHATE 4 MG/1 ML VIAL IVPB SCH ×3 (09:01→22:22)
[2017-09-16] MEDS: ASPIRIN 81 MG CHEWABLE TABLETS PO SCH (09:01)
--- NOTE | 2017-09-16 09:01 | PN ---
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 (short form) - Note 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: Pulm/CCM 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: Seen and examined in the ICU improved mental status back on dex pTT 66 Active Medications Acetaminophen (Ofirmev Injection -) 1,000 mg IVPB Q6H PRN PRN Reason: FEVER OR PAIN Last Admin: 09/14/17 22:12 Dose: 1,000 mg Albuterol Sulfate (Ventolin 0.083% Nebulizer Soln -) 1 amp NEB QIDR SHAHRAM Last Admin: 09/16/17 06:50 Dose: 1 amp Amlodipine Besylate (Norvasc -) 10 mg PO DAILY [facility] Last Admin: 09/15/17 10:09 Dose: 10 mg Aspirin (Asa -) 81 mg PO DAILY [facility]AM Last Admin: 09/15/17 10:09 Dose: 81 mg Atorvastatin Calcium (Lipitor -) 80 mg PO HS [facility] Last Admin: 09/16/17 00:00 Dose: Not Given Dexamethasone Sodium Phosphate (Decadron Injection -) 4 mg IVPB BID [facility] Last Admin: 09/16/17 00:00 Dose: 4 mg Enalaprilat (Vasotec Injection -) 1.25 mg IVPB Q6H-IV [facility] Last Admin: 09/16/17 04:00 Dose: 1.25 mg Heparin Sodium (Porcine) (Heparin -) 1,000 unit IVPUSH PRN PRN PRN Reason: Heparin Heparin Sodium (Porcine) (Heparin -) 5,000 unit IVPUSH PRN PRN PRN Reason: Heparin Heparin Sodium/Dextrose (Heparin Infusion -) 25,000 units in 500 mls @ 16 mls/ hr IVPB TITR SHAHRAM; 800 UNITS/HR PRN Reason: Protocol Last Titration: 09/16/17 08:11 Dose: 900 units/hr, 18 mls/hr Labetalol HCl (Normodyne Injection -) 10 mg IVPUSH Q3H PRN PRN Reason: HYPERTENSION Last Admin: 09/16/17 04:00 Dose: 10 mg Lidocaine/Aluminum/Magnesium/Simeth (Magic Mouthwash *Sjr Formula* -) 5 ml MM Q6HPO [facility]AM Last Admin: 09/16/17 07:33 Dose: Not Given Meclizine HCl (Antivert -) 12.5 mg PO Q6H PRN PRN Reason: dizzyness Metoclopramide HCl (Reglan Injection -) 10 mg IVPUSH Q6H PRN PRN Reason: NAUSEA AND/OR VOMITING Last Admin: 09/14/17 02:49 Dose: 10 mg Sucralfate (Carafate Oral Suspension -) 1 gm PO BID [facility] Last Admin: 09/16/17 00:00 Dose: Not Given Vital Signs Temp 98 F 09/15/17 22:00 Pulse 80 09/16/17 06:00 Resp 18 09/16/17 06:00 BP 165/85 09/16/17 06:00 Pulse Ox 96 09/15/17 21:00 Intake & Output 09/15/17 09/15/17 09/16/17 11:59 23:59 11:59 Intake Total 266 832 Balance 266 832 Weight 52.254 kg Intake: IV 216 432 HEPARIN INFUSION - 25,000 216 432 units In 500 ml @ 800 UNITS/HR 16 mls/hr IVPB TITR SHAHRAM Rx#:[id number] IVPB 100 Oral 50 300 Other: Voiding Method Incontinent Incontinent # Unmeasured Voids Void 2 3 Bowel Movement Yes: liquid brown # Bowel Movements 2 Weight Measurement Method Built in [facility] Exam: General:awake, alert, oriented HEENT: PERRL, no JVD CV: irr, irr Pulm: CTA Abd: soft, + BS Ext: WWP, no edema Neuro: FLOWERS x4, non focal CBCD WBC 28.5 K/mm3 (4.0-10.0) H 09/16/17 06:00 RBC 5.48 M/mm3 (3.60-5.2) H 09/16/17 06:00 Hgb 16.0 GM/dL (10.7-15.3) H 09/16/17 06:00 Hct 48.0 % (32.4-45.2) H 09/16/17 06:00 MCV 87.6 fl (80-96) 09/16/17 06:00 MCHC 33.3 g/dl (32.0-36.0) 09/16/17 06:00 RDW 12.7 % (11.6-15.6) 09/16/17 06:00 Plt Count 312 K/MM3 (134-434) 09/16/17 06:00 MPV 8.2 fl (7.5-11.1) 09/16/17 06:00 CMP Sodium 133 mmol/L (136-145) L 09/15/17 05:55 Potassium 4.0 mmol/L (3.5-5.1) D 09/15/17 05:55 Chloride 97 mmol/L (98-107) L 09/15/17 05:55 Carbon Dioxide 25 mmol/L (21-32) 09/15/17 05:55 Anion Gap 11 (8-16) 09/15/17 05:55 BUN 39 mg/dL (7-18) H 09/15/17 05:55 Creatinine 0.9 mg/dL (0.55-1.02) 09/15/17 05:55 Creat Clearance w eGFR 59.65 (>60) 09/15/17 05:55 Random Glucose 174 mg/dL (74-106) H 09/15/17 05:55 Calcium 8.4 mg/dL (8.5-10.1) L 09/15/17 05:55 Total Bilirubin 0.8 mg/dL (0.2-1.0) 09/15/17 05:55 AST 17 U/L (15-37) D 09/15/17 05:55 ALT 37 U/L (12-78) 09/15/17 05:55 Alkaline Phosphatase 75 U/L (45-117) 09/15/17 05:55 Total Protein 5.5 g/dl (6.4-8.2) L 09/15/17 05:55 Albumin 2.7 g/dl (3.4-5.0) L 09/15/17 05:55 CARDIAC ENZYMES Creatine Kinase 114 IU/L (26-192) 09/06/17 12:29 Troponin I < 0.02 ng/ml (0.00-0.05) 09/09/17 23:30 Microbiology 09/06/17 12:29 Blood - Peripheral Venous Blood Culture - Final NO GROWTH AFTER 5 DAYS INCUBATION 09/06/17 12:29 Blood - Peripheral Venous Blood Culture - Final NO GROWTH AFTER 5 DAYS INCUBATION 09/09/17 09:50 Urine - Urine Clean Catch Legionella Antigen - Final 09/09/17 09:50 Urine - Urine Clean Catch Streptococcus pneumoniae Antigen ( M - Final 09/06/17 15:00 Urine - Urine Clean Catch Urine Culture - Final NO GROWTH OBTAINED 09/06/17 16:00 Nasopharyngeal Swab Influenza Types A,B Antigen (TORRES) - Final 09/06/17 16:00 Nasopharyngeal Swab - Final IMP: Altered Mental Status Acute/Subacute CVA Pneumonia Bilateral Pleural Effusions HTN Hyperlipidemia P AFib PLAN; Titrate BP meds, increase PO meds to wean off drip c/b nausea IV Heparin drip per protocol with close monitoring of PTT, transition to PO agent once able to take wean steroids per neurology, per report mental status worsened off PO as tolerated , zofran PRN cont meclizine Aspiration precautions HOB @ 30 degrees SCDs Monitor off ABX ICU monitoring Constantino Anderson ACNP [id number]
[2017-09-16] MEDS: SUCRALFATE 1 GM/10 ML UNIT DOSE CUPS PO SCH ×3 (09:02→22:22)
[2017-09-16] MEDS: amLODIPine BESYLATE 10 MG TABLET (FP) PO SCH (09:02)
--- NOTE | 2017-09-16 09:53 | PN ---
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 Illness: No events overnight No complaints - Current Medication List Current Medications: Active Medications Acetaminophen (Ofirmev Injection -) 1,000 mg IVPB Q6H PRN PRN Reason: FEVER OR PAIN Last Admin: 09/14/17 22:12 Dose: 1,000 mg Albuterol Sulfate (Ventolin 0.083% Nebulizer Soln -) 1 amp NEB QIDR [facility] Last Admin: 09/16/17 06:50 Dose: 1 amp Amlodipine Besylate (Norvasc -) 10 mg PO DAILY [facility] Last Admin: 09/16/17 09:02 Dose: 10 mg Aspirin (Asa -) 81 mg PO DAILY [facility] Last Admin: 09/16/17 09:01 Dose: 81 mg Atorvastatin Calcium (Lipitor -) 80 mg PO HS [facility] Last Admin: 09/16/17 00:00 Dose: Not Given Dexamethasone Sodium Phosphate (Decadron Injection -) 4 mg IVPB BID [facility] Last Admin: 09/16/17 09:01 Dose: 4 mg Enalaprilat (Vasotec Injection -) 1.25 mg IVPB Q6H-IV [facility] Last Admin: 09/16/17 09:01 Dose: 1.25 mg Heparin Sodium (Porcine) (Heparin -) 1,000 unit IVPUSH PRN PRN PRN Reason: Heparin Heparin Sodium (Porcine) (Heparin -) 5,000 unit IVPUSH PRN PRN PRN Reason: Heparin Heparin Sodium/Dextrose (Heparin Infusion -) 25,000 units in 500 mls @ 16 mls/ hr IVPB TITR SHAHRAM; 800 UNITS/HR PRN Reason: Protocol Last Titration: 09/16/17 08:11 Dose: 900 units/hr, 18 mls/hr Labetalol HCl (Normodyne Injection -) 10 mg IVPUSH Q3H PRN PRN Reason: HYPERTENSION Last Admin: 09/16/17 04:00 Dose: 10 mg Lidocaine/Aluminum/Magnesium/Simeth (Magic Mouthwash *Sjr Formula* -) 5 ml MM Q6HPO [facility] Last Admin: 09/16/17 07:33 Dose: Not Given Meclizine HCl (Antivert -) 12.5 mg PO Q6H PRN PRN Reason: dizzyness Metoclopramide HCl (Reglan Injection -) 10 mg IVPUSH Q6H PRN PRN Reason: NAUSEA AND/OR VOMITING Last Admin: 09/14/17 02:49 Dose: 10 mg Sucralfate (Carafate Oral Suspension -) 1 gm PO BID [facility] Last Admin: 09/16/17 09:02 Dose: 1 gm - Objective Vital Signs: Vital Signs Temperature 98 F 09/15/17 22:00 Pulse Rate 77 09/16/17 08:00 Respiratory Rate 18 09/16/17 08:00 Blood Pressure 141/63 09/16/17 08:00 O2 Sat by Pulse Oximetry (%) 96 09/15/17 21:00 Constitutional: Yes: No Distress, Calm Eyes: Yes: WNL HENT: Yes: WNL Neck: Yes: WNL Cardiovascular: Yes: Regular Rate and Rhythm Respiratory: Yes: CTA Bilaterally Gastrointestinal: Yes: Normal Bowel Sounds Extremities: Yes: WNL Edema: No Labs: CBC, BMP 09/16/17 06:00 09/15/17 05:55 INR, PTT INR 1.13 (0.82-1.09) 09/12/17 06:20 Assessment/Plan 82 year old female with a past medical history of hypertension, CHF, hyperlipidemia admitted to the ICU for sepsis 2/2 pneumonia, hypertensive emergency, and ischemic stroke. 1) Ischemic Stroke: -condition stable, no neurological deficits noted -Continue asa 81mg QD -continue atorvastatin 80mg 2) Atrial Fibrillation: rate is in the 80's-90s on tele -Patient's aspirin 81mg continued -continue atorvastatin 80mg -continue nabivolol 3) Hypertensive Emergency: BP very labile better -Would transition to PO Vasotec -Continue amlodipine 10mg -Neuro may want higher MAP in setting of ischemic CVA
--- NOTE | 2017-09-16 14:06 | PN ---
Physical Exam: SUBJECTIVE: Pt stated she's feeling nausea but did not vomit. Per nurse, her mental status has been waxing and weaning. No acute event overnight. OBJECTIVE: Vital Signs Period Temp Pulse Resp BP Sys/Espinoza Pulse Ox Last 24 Hr 97.8 F-98.3 F 76-81 18-20 105-180/55-96 96-98 GENERAL: awake, alert and oriented x place and person. follows commands. speak in full sentences. No acute distress. LUNGS: Breath sounds equal, clear to auscultation bilaterally, no wheezes, no crackles, no accessory muscle use. HEART: regular rate but irregular rhythem, S1, S2 without murmur, rub or gallop. ABDOMEN: Soft, nontender, nondistended, normoactive bowel sounds, no guarding, no rebound, no hepatosplenomegaly, no masses. EXTREMITIES: 2+ pulses, warm, well-perfused, no edema. Laboratory Results - last 24 hr 09/16/17 09/16/17 06:00 06:00 WBC 28.5 H RBC 5.48 H Hgb 16.0 H Hct 48.0 H MCV 87.6 MCH 29.2 MCHC 33.3 RDW 12.7 Plt Count 312 MPV 8.2 PTT (Actin FS) 66.7 H Active Medications Generic Name Dose Route Start Last Admin Trade Name Hipolito PRN Reason Stop Dose Admin Acetaminophen 1,000 mg 09/11/17 07:43 09/14/17 22:12 Ofirmev Injection - IVPB 1,000 mg Q6H PRN Administration FEVER OR PAIN Amlodipine Besylate 10 mg 09/14/17 10:00 09/16/17 09:02 Norvasc - PO 10 mg DAILY SHAHRAM Administration Aspirin 81 mg 09/09/17 23:45 09/16/17 09:01 Asa - PO 81 mg DAILY SHAHRAM Administration Atorvastatin Calcium 80 mg 09/10/17 22:00 09/16/17 00:00 Lipitor - PO Not Given HS SHAHRAM Dexamethasone Sodium Phosphate 4 mg 09/15/17 10:30 09/16/17 09:01 Decadron Injection - IVPB 4 mg BID SHAHRAM Administration Enalaprilat 1.25 mg 09/14/17 15:00 09/16/17 09:01 Vasotec Injection - IVPB 1.25 mg Q6H-IV SHAHRAM Administration Heparin Sodium (Porcine) 1,000 unit 09/12/17 09:10 Heparin - IVPUSH PRN PRN Heparin Heparin Sodium (Porcine) 5,000 unit 09/12/17 09:10 Heparin - IVPUSH PRN PRN Heparin Heparin Sodium/Dextrose 25,000 units in 500 mls @ 16 mls/hr 09/12/17 09:15 08:11 Heparin Infusion - IVPB 900 units/hr TITR SHAHRAM 18 mls/hr Protocol Titration 800 UNITS/HR Labetalol HCl 10 mg 09/11/17 08:29 09/16/17 04:00 Normodyne Injection - IVPUSH 10 mg Q3H PRN Administration HYPERTENSION Lidocaine/Aluminum/Magnesium/Simeth 5 ml 09/14/17 12:00 09/16/17 07:33 Magic Mouthwash *Sjr Formula* - MM Not Given Q6HPO SHAHRAM Meclizine HCl 12.5 mg 09/16/17 08:33 Antivert - PO Q6H PRN dizzyness Metoclopramide HCl 10 mg 09/11/17 12:05 09/14/17 02:49 Reglan Injection - IVPUSH 10 mg Q6H PRN Administration NAUSEA AND/OR VOMITING Sucralfate 1 gm 09/13/17 10:15 09/16/17 09:02 Carafate Oral Suspension - PO 1 gm BID SHAHRAM Administration Warfarin Sodium 5 mg 09/16/17 18:00 Coumadin - PO DAILY@1800 SHAHRAM 82 year old female with a past medical history of hypertension, CHF, hyperlipidemia admitted to the ICU for sepsis 2/2 pneumonia, hypertensive emergency, and ischemic stroke. CVA, ischemic - R MCA and R PICA regions - Complicated by elevated intracranial pressure * Persistent nausea * Cont. decadron 4mg BID * add antivert * cont. reglan - Neurochecks Q4H - Cont. asa, lipitor - PT Acute hypoxic respiratory failure - Resolved - Likely 2/2 PNA and CHF - Completed abx AMS - Likely 2/2 infectious process and CVA - Mental status improving largely but still waxes and weans - CT head if mental status worsens A-fib, new onset - Rate controlled - PTT>60, start coumadin 5mg daily, f/u INR Leukocytosis - Likely 2/2 steroid HTN - Cont. norvasc, labetalol and vasotech pushes PRN FEN - No fluid indicated - Replete lytes as needed - Soft diet Prophylaxis -DVT: on heparin bridging to coumadin -GI: eating Disposition - May transfer to telemetry Visit type - Emergency Visit Emergency Visit: No - New Patient This patient is new to me today: Yes Date on this admission: 09/16/17 - Critical Care Critical Care patient: Yes Total Critical Care Time (in minutes): 20
[2017-09-16 15:15] LABS: INR 1.21 (0.82-1.09); PROTHROMBIN TIME (PATIENT) 13.7 SEC (9.98-11.88)
[2017-09-16] MEDS: WARFARIN NA 5 MG TABLET (UD) PO SCH (17:26)
[2017-09-16] MEDS: HEPARIN INFUSION - 25,000 UNITS/500 ML INFUS.BAG IVPB SCH (21:54)
[2017-09-16] MEDS: ATORVASTATIN CA 80 MG TABLET (FP) PO SCH ×3 (22:22→23:23)
[2017-09-17] MEDS: MAG HYDROX/ALH/SMC/DPHA/LIDO 240 ML MOUTHWASH MM SCH ×4 (02:49→18:52)
[2017-09-17] MEDS: ENALAPRILAT DIHYDRATE 1.25 MG/1 ML VIAL IVPB SCH ×4 (02:53→21:56)
[2017-09-17 06:35] LABS: HEMATOCRIT 48.8 % (32.4-45.2); HEMOGLOBIN 16.3 GM/dL (10.7-15.3); MCH 29.4 pg (25.7-33.7); MCHC 33.3 g/dl (32.0-36.0); MEAN CELL VOLUME 88.4 fl (80-96); MEAN PLT VOLUME 8.7 fl (7.5-11.1); PLATELET COUNT 369 K/MM3 (134-434); RBC 5.53 M/mm3 (3.60-5.2); RDW 12.7 % (11.6-15.6)
[2017-09-17 06:39] LABS: WHITE BLOOD COUNT 39.3 K/mm3 (4.0-10.0)
[2017-09-17 06:47] LABS: INR 1.5 (0.82-1.09); PROTHROMBIN TIME (PATIENT) 16.9 SEC (9.98-11.88)
[2017-09-17 06:57] LABS: ANION GAP 11 (8-16); BLOOD UREA NITROGEN 34 mg/dL (7-18); CALCIUM 8.8 mg/dL (8.5-10.1); CHLORIDE 96 mmol/L (98-107); CO2 27 mmol/L (21-32); GLUCOSE,RANDOM 191 mg/dL (74-106); MAGNESIUM 2.4 mg/dL (1.8-2.4); POTASSIUM 4.8 mmol/L (3.5-5.1); SODIUM 134 mmol/L (136-145)
[2017-09-17 07:00] LABS: ALK PHOS 88 U/L (45-117); CREATININE 0.9 mg/dL (0.55-1.02); PHOSPHOROUS 4.2 mg/dL (2.5-4.9); SGOT/AST 27 U/L (15-37); SGPT/ALT 61 U/L (12-78); TOT PROT 6.1 g/dl (6.4-8.2)
--- NOTE | 2017-09-17 08:56 | PN ---
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 (short form) - Note 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: NEUROSURGERY Denies H/A, N/V PE: Tmax 98.4; SBP mostly trending down HEENT- NC/AT; Neck- supple; Cor- Irreg; Lungs- CTA B; Abd- benign, + BS; Ext- no sign of DVT Fully awake and alert; oriented x2-3; following command CN- intact; Motor- 4+/5 B UE/LE, improving R dysmetria, mild L hemineglect; Sensation- intact LT; DTR- hyporeflexic; toes equivocal R MCA and R PICA ischemic infarct without hemorrhagic transformation, clinically improved WBC 39.3 (above the ordinary leukemoid reaction level from steroid intake) On coumadin, INR 1.5 Stable neurologically Mobilize PT- rehab
[2017-09-17 09:07] LABS: PLATELET ESTIMATE ADEQUATE
--- NOTE | 2017-09-17 09:54 | PN ---
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 (short form) - Note 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: Seen in CCU. Alert with periods of of confusion, no nausea reported, poor appetite. remains in atrial fib. with controlled ventricular response. Active Medications Acetaminophen (Ofirmev Injection -) 1,000 mg IVPB Q6H PRN PRN Reason: FEVER OR PAIN Last Admin: 09/14/17 22:12 Dose: 1,000 mg Amlodipine Besylate (Norvasc -) 10 mg PO DAILY SHAHRAM Last Admin: 09/16/17 09:02 Dose: 10 mg Aspirin (Asa -) 81 mg PO DAILY SHAHRAM Last Admin: 09/16/17 09:01 Dose: 81 mg Atorvastatin Calcium (Lipitor -) 80 mg PO HS SHAHRAM Last Admin: 09/16/17 23:23 Dose: Not Given Dexamethasone Sodium Phosphate (Decadron Injection -) 4 mg IVPB BID SHAHRAM Last Admin: 09/16/17 22:22 Dose: 4 mg Enalaprilat (Vasotec Injection -) 1.25 mg IVPB Q6H-IV SHAHRAM Last Admin: 09/17/17 02:53 Dose: 1.25 mg Heparin Sodium (Porcine) (Heparin -) 1,000 unit IVPUSH PRN PRN PRN Reason: Heparin Heparin Sodium (Porcine) (Heparin -) 5,000 unit IVPUSH PRN PRN PRN Reason: Heparin Heparin Sodium/Dextrose (Heparin Infusion -) 25,000 units in 500 mls @ 16 mls/ hr IVPB TITR SHAHRAM; 800 UNITS/HR PRN Reason: Protocol Last Admin: 09/16/17 21:54 Dose: 900 units/hr, 18 mls/hr Labetalol HCl (Normodyne Injection -) 10 mg IVPUSH Q3H PRN PRN Reason: HYPERTENSION Last Admin: 09/16/17 04:00 Dose: 10 mg Lidocaine/Aluminum/Magnesium/Simeth (Magic Mouthwash *Sjr Formula* -) 5 ml MM Q6HPO SHAHRAM Last Admin: 09/17/17 06:22 Dose: Not Given Meclizine HCl (Antivert -) 12.5 mg PO Q6H PRN PRN Reason: dizzyness Last Admin: 09/16/17 13:59 Dose: 12.5 mg Metoclopramide HCl (Reglan Injection -) 10 mg IVPUSH Q6H PRN PRN Reason: NAUSEA AND/OR VOMITING Last Admin: 09/14/17 02:49 Dose: 10 mg Sucralfate (Carafate Oral Suspension -) 1 gm PO BID [facility] Last Admin: 09/16/17 22:22 Dose: 1 gm Warfarin Sodium (Coumadin -) 5 mg PO DAILY@1800 [facility] Last Admin: 09/16/17 17:26 Dose: 5 mg 82 year old female is lethargic but alert. No pallor or cyanosis, clubbing or jaundice. Last Vital Signs Temp Pulse Resp BP Pulse Ox 98 F 76 irregular 15 108/90 100 09/17/17 06:00 09/17/17 08:00 09/17/17 08:00 09/17/17 08:00 09/17/17 08:00 Intake & Output 09/14/17 09/15/17 09/16/17 09/17/17 23:59 23:59 23:59 23:59 Intake Total 1400 1098 416 216 Balance 1400 1098 416 216 Weight 117 lb 1.6 oz 115 lb 3.2 oz 113 lb 5.082 oz NECK: Supple, no JVD, No HJR, carotids are 2+, no bruits are heard. HEART: PMI is in 5th ICS, no heaves or thrills. S1 and S2 are normal. No murmur or gallops were heard. LUNGS: Fine creps. at the right base. ABDOMEN: Soft, nontender, no organomegaly or palpable masses felt. EXTREMITIES: No calf tenderness or dependent edema. RESIDENT MANAGER: lethargic, Alert, period of confusion, no gross localizing signs. CBC, BMP 09/17/17 06:15 09/17/17 06:15 A: 1. S/p CVA, embolic. 2. Hypertension, presently normotensive. 3. Vertigo secondary to cerebellar CVA.Resolving. 4. Atrial fibrillation with cotrolled ventricular response. 5. Hypercholestrolemia 6. S/p CHF. 7 Leukocytos, etiology to be determined. . Recommendations: 1. OOB in chair if possible. 2. Dietary suppliments. 3. Evaluation of leukocytosis. 4.Coumadinization in progress. Problem List - Problems (1) Sepsis Code(s): A41.9 - SEPSIS, UNSPECIFIED ORGANISM (2) Accelerated hypertension Code(s): I10 - ESSENTIAL (PRIMARY) HYPERTENSION (3) Ventricular premature beats, contractions, or systoles Code(s): I49.3 - VENTRICULAR PREMATURE DEPOLARIZATION (4) Altered mental status Code(s): R41.82 - ALTERED MENTAL STATUS, UNSPECIFIED Qualifiers: Altered mental status type: transient alteration of awareness Qualified Code(s): R40.4 - Transient alteration of awareness (5) Pneumonia Code(s): J18.9 - PNEUMONIA, UNSPECIFIED ORGANISM Qualifiers: Pneumonia type: due to unspecified organism Laterality: left Lung location: lower lobe of lung Qualified Code(s): J18.1 - Lobar pneumonia, unspecified organism (6) Left ventricular failure Code(s): I50.1 - LEFT VENTRICULAR FAILURE, UNSPECIFIED
[2017-09-17] MEDS ORDERED: PT OWN MED DRAWER 7, Y5N ONE (11:44)
[2017-09-17] MEDS ORDERED: RANITIDINE HCL 150 MG TABLET (FP) PO SCH (11:45)
[2017-09-17] MEDS: DEXAMETHASONE SOD PHOSPHATE 4 MG/1 ML VIAL IVPB SCH (11:46)
--- NOTE | 2017-09-17 12:06 | PN ---
Teaching Attending Note Name of Resident: Mick Gomez ATTENDING PHYSICIAN STATEMENT I saw and evaluated the patient. I reviewed the resident's note and discussed the case with the resident. I agree with the resident's findings and plan as documented. SUBJECTIVE:alert but confused. remains nauseated with dizzyness when getting up. denies CP OBJECTIVE: Last Vital Signs Temp Pulse Resp BP Pulse Ox 98 F 85 21 124/76 100 09/17/17 06:00 09/17/17 10:13 09/17/17 10:00 09/17/17 10:00 09/17/17 10:13 Intake & Output 09/14/17 09/15/17 09/16/17 09/17/17 23:59 23:59 23:59 23:59 Intake Total 1400 1098 416 216 Balance 1400 1098 416 216 Weight 117 lb 1.6 oz 115 lb 3.2 oz 113 lb 5.082 oz General alert CV s1 s2 irregular no murmur/rub/galllop Lungs CTA anteriorly neuro moves all 4 extremities ASSESSMENT AND PLAN: 82 yo F with PMHx of HTN, HLD, admitted with shortness of breath, likely LLL CAP with sepsis, with component of acute diastolic heart failure, hypertensive urgency and Possible right acute/subacute frontoparietal CVA. 1.Acute hypoxic respiratory failure-suspect multifactorial from bibasilar PNA/ diastolic CHF. currently saturating well on 2L NC. Completed abx course. 2. Leukcoytosis-trending up. due to steroids. full sepsis workup negative for etiology. no indication for abx 3. Acute metabolic toxic encephalopathy- due to infection and acute CVA. overall improved, frequent neurochecks. low threshold for repeat imaging. hold sedating medications. 4. Acute R PICA with local mass effect-continues to have nausea and now dizzyness from cerebellar infarct. cont dex BID and meclizine prn. frequent neurochecks. 5. HTN urgency- improved but very labile. on norvasc and labetolol IVP prn. 6. Nausea- possible due to increased intracranial pressure vs HTN. refusing NGT placement.on clinimix, start low dose IVF. minimal po intake. encourage po intake. cont tigan/reglan prn and dietary supplements 7. Afib- new onset. rate controlled. on hep ggt- coumadin bridge day 2. pt explained risks and benefits of coumadin and NOAC choosed NOAC. 8. hypokalemia-resolved 9. sustained Vtach- no repeat episodes, Cardio on board 10. DVT ppx- hep ggt 11. MICU monitoring. guarded prognosis. pt refusing neurosurgery. DNI The care of this patient involved high complexity decision making to prevent further life threatening deterioration of the patient's condition and/or to evaluate & treat vital organ system(s) failure or risk of failure. 38 minutes
--- NOTE | 2017-09-17 12:13 | PN ---
Physical Exam: SUBJECTIVE: Doing well overall, had a decent sleep last night. Still nauseous today but starting to tolerate more frequent PO. Actually in excellent spirits and offered to by the entire ICU staff Nepali food for lunch. OBJECTIVE: Vital Signs Period Temp Pulse Resp BP Sys/Espinoza Pulse Ox Last 24 Hr 98 F-98.4 F 69-85 12-21 108-164/54-98 95-100 GENERAL: The patient is awake, alert, and oriented x4 but seems slightly confused at times and has to be reminded of her clinical course. HEAD: Normal with no signs of trauma. EYES: PERRL, extraocular movements intact, sclera anicteric, conjunctiva clear. No ptosis. ENT: Ears normal, nares patent, oropharynx clear without exudates, moist mucous membranes. NECK: Trachea midline, full range of motion, supple. LUNGS: Breath sounds equal, clear to auscultation bilaterally, no wheezes, no crackles, no accessory muscle use. HEART: Irregularly irregular, occasional PVCs, S1, S2 without murmur, rub or gallop. ABDOMEN: Soft, nontender, nondistended, normoactive bowel sounds, no guarding, no rebound, no hepatosplenomegaly, no masses. EXTREMITIES: 2+ pulses, warm, well-perfused, no edema. NEUROLOGICAL: Cranial nerves II through XII grossly intact. Normal speech, gait not observed. PSYCH: Normal mood, normal affect. SKIN: Warm, dry, normal turgor, no rashes or lesions noted Laboratory Results - last 24 hr 09/16/17 09/17/17 09/17/17 14:54 06:15 06:15 WBC 39.3 H* D RBC 5.53 H Hgb 16.3 H Hct 48.8 H MCV 88.4 MCH 29.4 MCHC 33.3 RDW 12.7 Plt Count 369 MPV 8.7 Total Counted 100 Neutrophils % (Manual) 82.0 Lymphocytes % (Manual) 2.0 L Monocytes % (Manual) 16 H* D Platelet Estimate Adequate PT with INR 13.70 H INR 1.21 H PTT (Actin FS) 112.4 H D Sodium Potassium Chloride Carbon Dioxide Anion Gap BUN Creatinine Creat Clearance w eGFR Random Glucose Calcium Phosphorus Magnesium Total Bilirubin AST ALT Alkaline Phosphatase Total Protein Albumin 09/17/17 09/17/17 06:15 06:15 WBC RBC Hgb Hct MCV MCH MCHC RDW Plt Count MPV Total Counted Neutrophils % (Manual) Lymphocytes % (Manual) Monocytes % (Manual) Platelet Estimate PT with INR 16.90 H INR 1.50 H PTT (Actin FS) Sodium 134 L Potassium 4.8 Chloride 96 L Carbon Dioxide 27 Anion Gap 11 BUN 34 H Creatinine 0.9 Creat Clearance w eGFR 59.65 Random Glucose 191 H Calcium 8.8 Phosphorus 4.2 D Magnesium 2.4 Total Bilirubin 1.0 D AST 27 D ALT 61 D Alkaline Phosphatase 88 Total Protein 6.1 L Albumin 3.0 L Active Medications Generic Name Dose Route Start Last Admin Trade Name Freq PRN Reason Stop Dose Admin Acetaminophen 1,000 mg 09/11/17 07:43 09/14/17 22:12 Ofirmev Injection - IVPB 1,000 mg Q6H PRN Administration FEVER OR PAIN Amlodipine Besylate 10 mg 09/14/17 10:00 09/16/17 09:02 Norvasc - PO 10 mg DAILY SHAHRAM Administration Aspirin 81 mg 09/09/17 23:45 09/16/17 09:01 Asa - PO 81 mg DAILY SHAHRAM Administration Atorvastatin Calcium 80 mg 09/10/17 22:00 09/16/17 23:23 Lipitor - PO Not Given HS [facility] Dexamethasone Sodium Phosphate 4 mg 09/15/17 10:30 09/17/17 11:46 Decadron Injection - IVPB 4 mg BID [facility] Administration Enalaprilat 1.25 mg 09/14/17 15:00 09/17/17 11:45 Vasotec Injection - IVPB Not Given Q6H-IV SHAHRAM Heparin Sodium (Porcine) 1,000 unit 09/12/17 09:10 Heparin - IVPUSH PRN PRN Heparin Heparin Sodium (Porcine) 5,000 unit 09/12/17 09:10 Heparin - IVPUSH PRN PRN Heparin Heparin Sodium/Dextrose 25,000 units in 500 mls @ 16 mls/hr 09/12/17 09:15 09:25 Heparin Infusion - IVPB 750 units/hr TITR SHAHRAM 15 mls/hr Protocol Titration 800 UNITS/HR Sodium Chloride 1,000 mls @ 42 mls/hr 09/17/17 11:45 Normal Saline - IV ASDIR SHAHRAM Labetalol HCl 10 mg 09/11/17 08:29 09/16/17 04:00 Normodyne Injection - IVPUSH 10 mg Q3H PRN Administration HYPERTENSION Lidocaine/Aluminum/Magnesium/Simeth 5 ml 09/14/17 12:00 09/17/17 06:22 Magic Mouthwash *Sjr Formula* - MM Not Given Q6HPO [facility] Meclizine HCl 12.5 mg 09/16/17 08:33 09/16/17 13:59 Antivert - PO 12.5 mg Q6H PRN Administration dizzyness Metoclopramide HCl 10 mg 09/11/17 12:05 09/14/17 02:49 Reglan Injection - IVPUSH 10 mg Q6H PRN Administration NAUSEA AND/OR VOMITING Nystatin 1 applic 09/17/17 11:45 Mycostatin Cream - TP BID [facility] Ranitidine HCl 150 mg 09/17/17 11:45 Zantac - PO DAILY [facility] Sucralfate 1 gm 09/13/17 10:15 09/16/17 22:22 Carafate Oral Suspension - PO 1 gm BID [facility] Administration Warfarin Sodium 5 mg 09/16/17 18:00 09/16/17 17:26 Coumadin - PO 5 mg DAILY@1800 SHAHRAM Administration Intake & Output 09/14/17 09/15/17 09/16/17 09/17/17 23:59 23:59 23:59 23:59 Intake Total 1400 1098 416 216 Balance 1400 1098 416 216 Weight 53.116 kg 52.254 kg 51.4 kg Microbiology 09/14/17 15:00 Blood - Peripheral Venous Blood Culture - Preliminary NO GROWTH OBTAINED AFTER 48 HOURS, INCUBATION TO CONTINUE FOR 3 DAYS. 09/14/17 13:48 Blood - Peripheral Venous Blood Culture - Preliminary NO GROWTH OBTAINED AFTER 48 HOURS, INCUBATION TO CONTINUE FOR 3 DAYS. 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 Neuro: Acute/subacute CVA with increased nausea: Likely embolic due to new afib with CT head (09/12) demonstrating worsening mass effect from R cerebellar subacute infarct. Neurosurgery recommended decompressive craneotomy; patient refused and Dr. Guy did not recommend this. Mannitol 12.5g given 09/12. Neuro status improving. - BP goal 130-140 are nearly met; patient starting to agree to PO medications - Continue Decadron 4MG IVPB BID - Neuro checks q 4 h - Cont. asa, lipitor - PT re-evaluation Pulm: CAP. CXR bibasilar infiltrates. Ceftriaxone course completed. Cultures NGTD. - Leukocytosis worsenin from 28 but likely 2/2 to steroid administration. - Ventolin prn CV: HTN: - Amlodipine 10 PO QD, labetalol 10 MG Q3 PRN, and Vasotech 1.25 Q6H New onset a-fib: -TTE normal RV, LF fxn. -Rate controlled and continue hep gtt and Coumadin while INR subtherapetuic -continue tele FEN: - Carafate for nausea with reglan and H2 lyndsey, not trying medications because she believes they are exacerbating her symptoms. Will reassess tomorrow. - Minimize fluids - Lyte repletion PRN - Soft diet, can do puree diet depending on patient's desires Dispo: - ICU monitoring continued for mental status Problem List - Problems (1) Accelerated hypertension Code(s): I10 - ESSENTIAL (PRIMARY) HYPERTENSION Visit type - Emergency Visit Emergency Visit: No - New Patient This patient is new to me today: No - Critical Care Critical Care patient: No - Discharge Referral Referred to [facility] Med P.C.: No
[2017-09-17] MEDS: ASPIRIN 81 MG CHEWABLE TABLETS PO SCH (12:47)
[2017-09-17] MEDS: NYSTATIN 100,000 UNIT/GM TOPICAL CREAM 15 GM TUBE TP SCH ×2 (12:48→21:57)
[2017-09-17] MEDS: amLODIPine BESYLATE 10 MG TABLET (FP) PO SCH (12:48)
[2017-09-17] MEDS: SUCRALFATE 1 GM/10 ML UNIT DOSE CUPS PO SCH ×3 (12:54→21:56)
--- NOTE | 2017-09-17 13:22 | PN ---
Teaching Attending Note Name of Resident: Lori Peters ATTENDING PHYSICIAN STATEMENT I saw and evaluated the patient. I reviewed the resident's note and discussed the case with the resident. I agree with the resident's findings and plan as documented. SUBJECTIVE: Pt seen and examined in the ICU. Mildly confused, still with nausea. No headache. More alert, awake. OBJECTIVE: Last Vital Signs Temp Pulse Resp BP Pulse Ox 98 F 85 21 124/76 100 09/17/17 06:00 09/17/17 10:13 09/17/17 10:00 09/17/17 10:00 09/17/17 10:13 Intake & Output 09/14/17 09/15/17 09/16/17 09/17/17 23:59 23:59 23:59 23:59 Intake Total 1400 1098 416 216 Balance 1400 1098 416 216 Weight 117 lb 1.6 oz 115 lb 3.2 oz 113 lb 5.082 oz Gen: more alert, awake Heart: irregular Lung: decreased breath sounds at the bases Abd: soft, nontender Ext: no edema CBC, BMP 09/17/17 06:15 09/17/17 06:15 Active Medications Acetaminophen (Ofirmev Injection -) 1,000 mg IVPB Q6H PRN PRN Reason: FEVER OR PAIN Last Admin: 09/14/17 22:12 Dose: 1,000 mg Amlodipine Besylate (Norvasc -) 10 mg PO DAILY [facility] Last Admin: 09/17/17 12:48 Dose: 10 mg Aspirin (Asa -) 81 mg PO DAILY [facility] Last Admin: 09/17/17 12:47 Dose: 81 mg Atorvastatin Calcium (Lipitor -) 80 mg PO HS [facility] Last Admin: 09/16/17 23:23 Dose: Not Given Dexamethasone Sodium Phosphate (Decadron Injection -) 4 mg IVPB BID [facility] Last Admin: 09/17/17 11:46 Dose: 4 mg Enalaprilat (Vasotec Injection -) 1.25 mg IVPB Q6H-IV [facility] Last Admin: 09/17/17 11:45 Dose: Not Given Heparin Sodium (Porcine) (Heparin -) 1,000 unit IVPUSH PRN PRN PRN Reason: Heparin Heparin Sodium (Porcine) (Heparin -) 5,000 unit IVPUSH PRN PRN PRN Reason: Heparin Heparin Sodium/Dextrose (Heparin Infusion -) 25,000 units in 500 mls @ 16 mls/ hr IVPB TITR SHAHRAM; 800 UNITS/HR PRN Reason: Protocol Last Titration: 09/17/17 09:25 Dose: 750 units/hr, 15 mls/hr Sodium Chloride (Normal Saline -) 1,000 mls @ 42 mls/hr IV ASDIR SHAHRAM Labetalol HCl (Normodyne Injection -) 10 mg IVPUSH Q3H PRN PRN Reason: HYPERTENSION Last Admin: 09/16/17 04:00 Dose: 10 mg Lidocaine/Aluminum/Magnesium/Simeth (Magic Mouthwash *Sjr Formula* -) 5 ml MM Q6HPO [facility] Last Admin: 09/17/17 12:47 Dose: Not Given Meclizine HCl (Antivert -) 12.5 mg PO Q6H PRN PRN Reason: dizzyness Last Admin: 09/16/17 13:59 Dose: 12.5 mg Metoclopramide HCl (Reglan Injection -) 10 mg IVPUSH Q6H PRN PRN Reason: NAUSEA AND/OR VOMITING Last Admin: 09/14/17 02:49 Dose: 10 mg Nystatin (Mycostatin Cream -) 1 applic TP BID [facility] Last Admin: 09/17/17 12:48 Dose: 1 applic Ranitidine HCl (Zantac -) 150 mg PO DAILY [facility] Sucralfate (Carafate Oral Suspension -) 1 gm PO BID [facility] Last Admin: 09/16/17 22:22 Dose: 1 gm Warfarin Sodium (Coumadin -) 5 mg PO DAILY@1800 [facility] Last Admin: 09/16/17 17:26 Dose: 5 mg ASSESSMENT AND PLAN: Altered Mental Status improving Acute/Subacute CVA Cerebral Edema Atrial Fibrillation Pneumonia Bilateral Pleural Effusions HTN Hyperlipidemia - rate controlled - continue anticoagulation - taper off decadron - continue antibiotics - BP control - PO as tolerated - aspiration precautions - DVT prophylaxis - OOB to chair - rehab/PT - can monitor on telemetry critical care time spent in reviewing chart, evaluating patient and formulating plan 35 min
--- NOTE | 2017-09-17 14:18 | PN ---
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, MEASUREMENT SUPERINTENDENT - Note 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: Selected Entries 09/16/17 09/16/17 09/16/17 10:00 16:00 20:33 Supper 25% Temperature 98.3 F 98.4 F 09/16/17 09/17/17 09/17/17 22:00 02:00 06:00 Supper Temperature 98.4 F 98.2 F 98 F 09/17/17 12:00 Supper Temperature 97.8 F Laboratory Tests 09/14/17 09/15/17 09/16/17 05:55 05:55 06:00 WBC 32.1 H* D 31.0 H* 28.5 H 09/17/17 06:15 WBC 39.3 H* D Clinically improving. Alert, verbal. Limited appetite/po acceptance. Speech WNL. Mildly confused. Oriented but forgetful/impaired insight. Pt requests yakut soup and shrimp, but with limited acceptance. PO intake, as tolerated and accepted.
[2017-09-17] MEDS: SODIUM CHLORIDE 1,000 ML IV SCH (14:30)
--- NOTE | 2017-09-17 17:04 | PN ---
Physical Exam: SUBJECTIVE: Patient seen and examined at bedside. Patient less combative today; oriented to self and place, but not to time. Pleasantly confused. Increasing PO intake slowly. Patient continues to refuse food. OBJECTIVE: Vital Signs Period Temp Pulse Resp BP Sys/Espinoza Pulse Ox Last 24 Hr 97.8 F-98.4 F 69-85 12-21 108-164/54-98 95-100 GENERAL: The patient is awake, alert, and fully oriented, in no acute distress. HEAD: Normal with no signs of trauma. LUNGS: Breath sounds equal, clear to auscultation bilaterally, no wheezes, no crackles, no accessory muscle use. HEART: Regular rate and rhythm, S1, S2 without murmur, rub or gallop. ABDOMEN: Soft, nontender, nondistended, normoactive bowel sounds, no guarding, no rebound, no hepatosplenomegaly, no masses. NEUROLOGICAL: Cranial nerves II through X grossly intact. Normal speech, gait not observed. SKIN: Warm, dry, normal turgor, no rashes or lesions noted Laboratory Results - last 24 hr 09/17/17 09/17/17 09/17/17 06:15 06:15 06:15 WBC 39.3 H* D RBC 5.53 H Hgb 16.3 H Hct 48.8 H MCV 88.4 MCH 29.4 MCHC 33.3 RDW 12.7 Plt Count 369 MPV 8.7 Total Counted 100 Neutrophils % (Manual) 82.0 Lymphocytes % (Manual) 2.0 L Monocytes % (Manual) 16 H* D Platelet Estimate Adequate PT with INR INR PTT (Actin FS) 112.4 H D Sodium 134 L Potassium 4.8 Chloride 96 L Carbon Dioxide 27 Anion Gap 11 BUN 34 H Creatinine 0.9 Creat Clearance w eGFR 59.65 Random Glucose 191 H Calcium 8.8 Phosphorus 4.2 D Magnesium 2.4 Total Bilirubin 1.0 D AST 27 D ALT 61 D Alkaline Phosphatase 88 Total Protein 6.1 L Albumin 3.0 L 09/17/17 09/17/17 06:15 13:42 WBC RBC Hgb Hct MCV MCH MCHC RDW Plt Count MPV Total Counted Neutrophils % (Manual) Lymphocytes % (Manual) Monocytes % (Manual) Platelet Estimate PT with INR 16.90 H INR 1.50 H PTT (Actin FS) 65.1 H D Sodium Potassium Chloride Carbon Dioxide Anion Gap BUN Creatinine Creat Clearance w eGFR Random Glucose Calcium Phosphorus Magnesium Total Bilirubin AST ALT Alkaline Phosphatase Total Protein Albumin Active Medications Generic Name Dose Route Start Last Admin Trade Name Freq PRN Reason Stop Dose Admin Acetaminophen 1,000 mg 09/11/17 07:43 09/14/17 22:12 Ofirmev Injection - IVPB 1,000 mg Q6H PRN Administration FEVER OR PAIN Amlodipine Besylate 10 mg 09/14/17 10:00 09/17/17 12:48 Norvasc - PO 10 mg DAILY SHAHRAM Administration Aspirin 81 mg 09/09/17 23:45 09/17/17 12:47 Asa - PO 81 mg DAILY SHAHRAM Administration Atorvastatin Calcium 80 mg 09/10/17 22:00 09/16/17 23:23 Lipitor - PO Not Given HS SHAHRAM Dexamethasone Sodium Phosphate 4 mg 09/15/17 10:30 09/17/17 11:46 Decadron Injection - IVPB 4 mg BID SHAHRAM Administration Enalaprilat 1.25 mg 09/14/17 15:00 09/17/17 11:45 Vasotec Injection - IVPB Not Given Q6H-IV SHAHRAM Heparin Sodium (Porcine) 1,000 unit 09/12/17 09:10 Heparin - IVPUSH PRN PRN Heparin Heparin Sodium (Porcine) 5,000 unit 09/12/17 09:10 Heparin - IVPUSH PRN PRN Heparin Heparin Sodium/Dextrose 25,000 units in 500 mls @ 16 mls/hr 09/12/17 09:15 09:25 Heparin Infusion - IVPB 750 units/hr TITR SHAHRAM 15 mls/hr Protocol Titration 800 UNITS/HR Sodium Chloride 1,000 mls @ 42 mls/hr 09/17/17 11:45 Normal Saline - IV ASDIR SHAHRAM Labetalol HCl 10 mg 09/11/17 08:29 09/16/17 04:00 Normodyne Injection - IVPUSH 10 mg Q3H PRN Administration HYPERTENSION Lidocaine/Aluminum/Magnesium/Simeth 5 ml 09/14/17 12:00 09/17/17 12:47 Magic Mouthwash *Sjr Formula* - MM Not Given Q6HPO SHAHRAM Meclizine HCl 12.5 mg 09/16/17 08:33 09/16/17 13:59 Antivert - PO 12.5 mg Q6H PRN Administration dizzyness Metoclopramide HCl 10 mg 09/11/17 12:05 09/14/17 02:49 Reglan Injection - IVPUSH 10 mg Q6H PRN Administration NAUSEA AND/OR VOMITING Nystatin 1 applic 09/17/17 11:45 09/17/17 12:48 Mycostatin Cream - TP 1 applic BID SHAHRAM Administration Ranitidine HCl 150 mg 09/17/17 13:45 Zantac - PO DAILY SHAHRAM Sucralfate 1 gm 09/13/17 10:15 09/17/17 12:56 Carafate Oral Suspension - PO 1 gm BID SHAHRAM Administration Warfarin Sodium 5 mg 09/16/17 18:00 09/16/17 17:26 Coumadin - PO 5 mg DAILY@1800 SHAHRAM Administration ASSESSMENT/PLAN: 82 year old female with a past medical history of hypertension, CHF, hyperlipidemia admitted to the ICU for sepsis 2/2 pneumonia, hypertensive emergency, and ischemic stroke. # ischemic stroke causing elevated ICP -R MCA and R PICA regions -pt w/ Persistent nausea -decadron 4mg BID -antivert -reglan PRN -Neurochecks Q4H -Cont. asa, lipitor -Early ambulation #AMS Likely 2/2 CVA vs metabolic eitology -Mental status improving, but still waxes and wanes -CT head if mental status deteriorates #New onset a-fib -currently Rate controlled -heparin GTT -Bridging to coumadin day 2; INR 1.5 Leukocytosis - Likely 2/2 steroids; will monitor HTN -controlled on current medications -Cont. norvasc, labetalol and vasotech pushes PRN FEN - NS @ 42 as patient w/ decreased PO intake - Replete lytes as needed - Soft diet; encouraged PO intake Prophylaxis -DVT: on heparin bridging to coumadin -GI: Ranitidine 150 daily as patient w/ extended ICU stay Disposition -monitor in ICU; transfer as per blood typer Visit type - Emergency Visit Emergency Visit: Yes ED Registration Date: 09/06/17 Care time: The patient presented to the Emergency Department on the above date and was hospitalized for further evaluation of their emergent condition. - New Patient This patient is new to me today: Yes Date on this admission: 09/17/17 - Critical Care Critical Care patient: Yes Total Critical Care Time (in minutes): 35 Critical Care Statement: The care of this patient involved high complexity decision making to prevent further life threatening deterioration of the patient 's condition and/or to evaluate & treat vital organ system(s) failure or risk of failure.
[2017-09-17] MEDS: WARFARIN NA 5 MG TABLET (UD) PO SCH (17:35)
[2017-09-17] MEDS: RANITIDINE HCL 150 MG TABLET (FP) PO SCH (17:35)
[2017-09-17] MEDS ORDERED: HEPARIN INFUSION - 25,000 UNITS/500 ML INFUS.BAG IVPB SCH (18:58)
--- NOTE | 2017-09-17 19:45 | PN ---
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 (short form) - Note 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: Seen in CCU. Alert with periods of of confusion, no nausea reported, poor appetite. remains in atrial fib. with controlled ventricular response. Active Medications Acetaminophen (Ofirmev Injection -) 1,000 mg IVPB Q6H PRN PRN Reason: FEVER OR PAIN Last Admin: 09/14/17 22:12 Dose: 1,000 mg Amlodipine Besylate (Norvasc -) 10 mg PO DAILY SHAHRAM Last Admin: 09/16/17 09:02 Dose: 10 mg Aspirin (Asa -) 81 mg PO DAILY SHAHRAM Last Admin: 09/16/17 09:01 Dose: 81 mg Atorvastatin Calcium (Lipitor -) 80 mg PO HS SHAHRAM Last Admin: 09/16/17 23:23 Dose: Not Given Dexamethasone Sodium Phosphate (Decadron Injection -) 4 mg IVPB BID SHAHRAM Last Admin: 09/16/17 22:22 Dose: 4 mg Enalaprilat (Vasotec Injection -) 1.25 mg IVPB Q6H-IV SHAHRAM Last Admin: 09/17/17 02:53 Dose: 1.25 mg Heparin Sodium (Porcine) (Heparin -) 1,000 unit IVPUSH PRN PRN PRN Reason: Heparin Heparin Sodium (Porcine) (Heparin -) 5,000 unit IVPUSH PRN PRN PRN Reason: Heparin Heparin Sodium/Dextrose (Heparin Infusion -) 25,000 units in 500 mls @ 16 mls/ hr IVPB TITR SHAHRAM; 800 UNITS/HR PRN Reason: Protocol Last Admin: 09/16/17 21:54 Dose: 900 units/hr, 18 mls/hr Labetalol HCl (Normodyne Injection -) 10 mg IVPUSH Q3H PRN PRN Reason: HYPERTENSION Last Admin: 09/16/17 04:00 Dose: 10 mg Lidocaine/Aluminum/Magnesium/Simeth (Magic Mouthwash *Sjr Formula* -) 5 ml MM Q6HPO SHAHRAM Last Admin: 09/17/17 06:22 Dose: Not Given Meclizine HCl (Antivert -) 12.5 mg PO Q6H PRN PRN Reason: dizzyness Last Admin: 09/16/17 13:59 Dose: 12.5 mg Metoclopramide HCl (Reglan Injection -) 10 mg IVPUSH Q6H PRN PRN Reason: NAUSEA AND/OR VOMITING Last Admin: 09/14/17 02:49 Dose: 10 mg Sucralfate (Carafate Oral Suspension -) 1 gm PO BID [facility] Last Admin: 09/16/17 22:22 Dose: 1 gm Warfarin Sodium (Coumadin -) 5 mg PO DAILY@1800 [facility] Last Admin: 09/16/17 17:26 Dose: 5 mg 82 year old female is lethargic but alert. No pallor or cyanosis, clubbing or jaundice. Last Vital Signs Temp Pulse Resp BP Pulse Ox 98 F 76 irregular 15 108/90 100 09/17/17 06:00 09/17/17 08:00 09/17/17 08:00 09/17/17 08:00 09/17/17 08:00 Intake & Output 09/14/17 09/15/17 09/16/17 09/17/17 23:59 23:59 23:59 23:59 Intake Total 1400 1098 416 216 Balance 1400 1098 416 216 Weight 117 lb 1.6 oz 115 lb 3.2 oz 113 lb 5.082 oz NECK: Supple, no JVD, No HJR, carotids are 2+, no bruits are heard. HEART: PMI is in 5th ICS, no heaves or thrills. S1 and S2 are normal. No murmur or gallops were heard. LUNGS: Fine creps. at the right base. ABDOMEN: Soft, nontender, no organomegaly or palpable masses felt. EXTREMITIES: No calf tenderness or dependent edema. REHABILITATION COORDINATOR: lethargic, Alert, period of confusion, no gross localizing signs. CBC, BMP 09/17/17 06:15 09/17/17 06:15 A: 1. S/p CVA, embolic. 2. Hypertension, presently normotensive. 3. Vertigo secondary to cerebellar CVA.Resolving. 4. Atrial fibrillation with cotrolled ventricular response. 5. Hypercholestrolemia 6. S/p CHF. 7 Leukocytos, etiology to be determined. . Recommendations: 1. OOB in chair if possible. 2. Dietary suppliments. 3. Evaluation of leukocytosis. 4. Coumadinization in progress. Problem List - Problems (1) Sepsis Code(s): A41.9 - SEPSIS, UNSPECIFIED ORGANISM (2) Accelerated hypertension Code(s): I10 - ESSENTIAL (PRIMARY) HYPERTENSION (3) Ventricular premature beats, contractions, or systoles Code(s): I49.3 - VENTRICULAR PREMATURE DEPOLARIZATION (4) Altered mental status Code(s): R41.82 - ALTERED MENTAL STATUS, UNSPECIFIED Qualifiers: Altered mental status type: transient alteration of awareness Qualified Code(s): R40.4 - Transient alteration of awareness (5) Pneumonia Code(s): J18.9 - PNEUMONIA, UNSPECIFIED ORGANISM Qualifiers: Pneumonia type: due to unspecified organism Laterality: left Lung location: lower lobe of lung Qualified Code(s): J18.1 - Lobar pneumonia, unspecified organism (6) Left ventricular failure Code(s): I50.1 - LEFT VENTRICULAR FAILURE, UNSPECIFIED
[2017-09-17] MEDS: ATORVASTATIN CA 80 MG TABLET (FP) PO SCH (21:56)
--- NOTE | 2017-09-17 22:00 | PN ---
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 (short form) - Note 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: NEUROLOGY FOLLOW-UP: Events reviewed, Pt. examined. Discussed with son. On Coumadin day #2. Bump in PTT noted with reduction in coumadin dose. On decadron 4 mg BID with WBC > 30K and elevated glucose determinations. Pt. is awake, alert but confused and somewhat inappropriate. However is rapidly Ox SJ and 2016. C/O dry mouth. No c/o headache. No c/o dizziness. EXAM: Variable left visual field deficit. No facial. Gag OK No drift. Normal reflexes except AJ's. Toes downgoing. No FTN Dystaxia Feels soft touch throughout. IMP: Doing well s/p multiple CVA's. New-onset AFib Mild confusion today. SUGGEST: D/C Decadron. D/C Meclizine. D/C metachlopramide. Follow WBC down. Reculture if desired. Mobilize OO Bed to chair and begin to ambulate with PT Continue coumadin to INR 2-2.5 and D/C Heparin. Berry evaluation for transfer to [facility]. Thank you very much, Suman Pérez MD
[2017-09-18] MEDS ORDERED: HEPARIN SOD,PORK IN 0.45% NACL 25,000 UNITS/500 ML INFUS.BAG IVPB SCH (04:45)
[2017-09-18] MEDS: ENALAPRILAT DIHYDRATE 1.25 MG/1 ML VIAL IVPB SCH ×2 (06:31→09:31)
[2017-09-18] MEDS: MAG HYDROX/ALH/SMC/DPHA/LIDO 240 ML MOUTHWASH MM SCH ×6 (06:31→23:04)
[2017-09-18 07:16] LABS: HEMATOCRIT 46.5 % (32.4-45.2); MCH 28.6 pg (25.7-33.7); MCHC 32.2 g/dl (32.0-36.0); MEAN CELL VOLUME 88.8 fl (80-96); MEAN PLT VOLUME 9.1 fl (7.5-11.1); PLATELET COUNT 277 K/MM3 (134-434); RBC 5.24 M/mm3 (3.60-5.2); RDW 13.1 % (11.6-15.6)
--- NOTE | 2017-09-18 07:36 | PN ---
Physical Exam: SUBJECTIVE: Patient doing well overall. Has started to tolerate more PO intake but mostly ice cream and water ice. OBJECTIVE: Vital Signs Period Temp Pulse Resp BP Sys/Espinoza Pulse Ox Last 24 Hr 97.6 F-98.5 F 68-85 15-21 101-159/48-90 97-100 GENERAL: The patient is awake, alert, and oriented x4 but seems slightly confused at times and has to be reminded of her clinical course. HEAD: Normal with no signs of trauma. EYES: PERRL, extraocular movements intact, sclera anicteric, conjunctiva clear. No ptosis. ENT: Ears normal, nares patent, oropharynx clear without exudates, moist mucous membranes. NECK: Trachea midline, full range of motion, supple. LUNGS: Breath sounds equal, clear to auscultation bilaterally, no wheezes, no crackles, no accessory muscle use. HEART: Irregularly irregular, occasional PVCs, S1, S2 without murmur, rub or gallop. ABDOMEN: Soft, nontender, nondistended, normoactive bowel sounds, no guarding, no rebound, no hepatosplenomegaly, no masses. EXTREMITIES: 2+ pulses, warm, well-perfused, no edema. NEUROLOGICAL: Cranial nerves II through XII grossly intact. Normal speech, gait not observed. PSYCH: Normal mood, normal affect. SKIN: Warm, dry, normal turgor, no rashes or lesions noted Laboratory Results - last 24 hr 09/17/17 09/17/17 09/18/17 06:15 13:42 06:00 WBC 48.1 H* RBC 5.24 H Hgb 15.0 Hct 46.5 H MCV 88.8 MCH 28.6 MCHC 32.2 RDW 13.1 Plt Count 277 D MPV 9.1 Total Counted 100 Neutrophils % No Result Required. Neutrophils % (Manual) 82.0 Lymphocytes % No Result Required. Lymphocytes % (Manual) 2.0 L Monocytes % (Manual) 16 H* D Platelet Estimate Adequate PTT (Actin FS) 65.1 H D Active Medications Generic Name Dose Route Start Last Admin Trade Name Freq PRN Reason Stop Dose Admin Amlodipine Besylate 10 mg 09/14/17 10:00 09/17/17 12:48 Norvasc - PO 10 mg DAILY SHAHRAM Administration Aspirin 81 mg 09/09/17 23:45 09/17/17 12:47 Asa - PO 81 mg DAILY SHAHRAM Administration Atorvastatin Calcium 80 mg 09/10/17 22:00 09/17/17 21:56 Lipitor - PO Not Given HS SHAHRAM Enalaprilat 1.25 mg 09/14/17 15:00 09/18/17 06:31 Vasotec Injection - IVPB Not Given Q6H-IV SHARHAM Heparin Sodium (Porcine) 1,000 unit 09/12/17 09:10 Heparin - IVPUSH PRN PRN Heparin Heparin Sodium (Porcine) 5,000 unit 09/12/17 09:10 Heparin - IVPUSH PRN PRN Heparin Sodium Chloride 1,000 mls @ 42 mls/hr 09/17/17 11:45 09/17/17 14:30 Normal Saline - IV 42 mls/hr ASDIR SHAHRAM Administration HEPARIN SOD,PORK IN 0.45% NACL 25,000 units in 500 mls @ 16 mls/hr 09/18/17 04 :45 09/18/17 06:32 Heparin-1/2ns 25,000 Units/500 IVPB 750 units/hr TITR SHAHRAM 15 mls/hr Protocol Administration 800 UNITS/HR Labetalol HCl 10 mg 09/11/17 08:29 09/16/17 04:00 Normodyne Injection - IVPUSH 10 mg Q3H PRN Administration HYPERTENSION Lidocaine/Aluminum/Magnesium/Simeth 5 ml 09/14/17 12:00 09/18/17 06:31 Magic Mouthwash *Sjr Formula* - MM Not Given Q6HPO SHAHRAM Nystatin 1 applic 09/17/17 11:45 09/17/17 21:57 Mycostatin Cream - TP 1 applic BID SHAHRAM Administration Ranitidine HCl 150 mg 09/17/17 13:45 09/17/17 17:35 Zantac - PO 150 mg DAILY SHAHRAM Administration Sucralfate 1 gm 09/13/17 10:15 09/17/17 21:56 Carafate Oral Suspension - PO Not Given BID SHAHRAM Warfarin Sodium 5 mg 09/16/17 18:00 09/17/17 17:35 Coumadin - PO 5 mg DAILY@1800 SHAHRAM Administration ASSESSMENT/PLAN: 82 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 Neuro: Acute/subacute CVA with increased nausea: Likely embolic due to new afib with CT head (09/12) demonstrating worsening mass effect from R cerebellar subacute infarct. Neurosurgery recommended decompressive craneotomy; patient refused and Dr. Guy did not recommend this. Mannitol 12.5g given 09/12. Neuro status improving. - BP goal 130-140 are nearly met; patient starting to agree to PO medications - Meclazine, Reglan, and Decadron DC'd - Neuro checks q 4 h - Cont. asa, lipitor - PT re-evaluation today Pulm: CAP. CXR bibasilar infiltrates. Ceftriaxone course completed. Cultures NGTD. - Leukocytosis worsenin from 39, originally believed to be from steroid administration but likely some element of CLL vs. CML. - Ventolin prn CV: HTN: - Amlodipine 10 PO QD - Has not required labetalol 10 MG Q3 PRN or Vasotech 1.25 Q6H so will DC vasotech but keep labetalol PRN New onset a-fib: -TTE normal RV, LF fxn. -Rate controlled and AC per HEME section -Continue on tele HEME: Coagulopathy: INR 6.99 with PTT 140s - Will old Coumadin 5 MG tonight - Continue Heparin per protocol because of risk of hypercoagulability - Recheck INR tomorrow FEN: - Carafate for nausea with H2 lyndsey, reglan DC'd - Minimize fluids - Lyte repletion PRN - Soft diet, can do puree diet depending on patient's desires Dispo: - Put in for transfer on tele. Problem List - Problems (1) Accelerated hypertension Code(s): I10 - ESSENTIAL (PRIMARY) HYPERTENSION Visit type - Emergency Visit Emergency Visit: No - New Patient This patient is new to me today: No - Critical Care Critical Care patient: No - Discharge Referral Referred to [facility] Med P.C.: No
[2017-09-18 07:43] LABS: CHLORIDE 100 mmol/L (98-107); POTASSIUM 4.5 mmol/L (3.5-5.1); SODIUM 136 mmol/L (136-145)
[2017-09-18 07:50] LABS: ALBUMIN 2.8 g/dl (3.4-5.0); ALK PHOS 101 U/L (45-117); ANION GAP 12 (8-16); BILIRUBIN,TOTAL 0.8 mg/dL (0.2-1.0); BLOOD UREA NITROGEN 28 mg/dL (7-18); CALCIUM 8.4 mg/dL (8.5-10.1); CO2 24 mmol/L (21-32); CREATININE 0.8 mg/dL (0.55-1.02); GLUCOSE,RANDOM 148 mg/dL (74-106); MAGNESIUM 2.4 mg/dL (1.8-2.4); PHOSPHOROUS 3.3 mg/dL (2.5-4.9); SGOT/AST 58 U/L (15-37); SGPT/ALT 96 U/L (12-78); TOT PROT 5.8 g/dl (6.4-8.2)
[2017-09-18 07:59] LABS: PROTHROMBIN TIME (PATIENT) 64.8 SEC (9.98-11.88)
[2017-09-18 08:08] LABS: INR 5.73 (0.82-1.09)
[2017-09-18 08:10] LABS: WHITE BLOOD COUNT 48.1 K/mm3 (4.0-10.0)
[2017-09-18] MEDS ORDERED: PT OWN MED DRAWER 7, Y5N ONE (08:31)
[2017-09-18] MEDS: SUCRALFATE 1 GM/10 ML UNIT DOSE CUPS PO SCH ×2 (09:34→21:12)
[2017-09-18] MEDS: ASPIRIN 81 MG CHEWABLE TABLETS PO SCH (09:34)
[2017-09-18] MEDS: amLODIPine BESYLATE 10 MG TABLET (FP) PO SCH ×2 (09:34→11:15)
[2017-09-18] MEDS: NYSTATIN 100,000 UNIT/GM TOPICAL CREAM 15 GM TUBE TP SCH ×2 (09:35→21:15)
[2017-09-18] MEDS: RANITIDINE HCL 150 MG TABLET (FP) PO SCH (09:35)
[2017-09-18 10:24] LABS: INR 6.99 (0.82-1.09)
[2017-09-18 12:13] LABS: ACANTHOCYTES 0; ANISOCYTOSIS 0; HELMET CELLS 0; HOWELL-JOLLY BODIES 0; MACROCYTOSIS 0; OVALOCYTE 0; PLATELET ESTIMATE NORMAL; SICKELED CELLS 0; TARGET CELLS 0; TEAR DROP CELLS 0; TOXIC GRANULATION 0
[2017-09-18] MEDS ORDERED: PHYTONADIONE 5 MG TABLET PO ONE ×2 (12:17→13:41)
--- NOTE | 2017-09-18 12:18 | PN ---
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 (short form) - Note 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: Brief Encounter, consult was called for evaluation of elevated White cells. Went in to see the patient, she mentioned that she does not need to know anything about her white cells and she knows that her cells are up "sometimes" she does not wanted to have a diagnosis. she has a "suspicion" that she might have CLL. She mentioned she is well read about the possibilities of high white cells. Respected her wishes of not diagnosing/treating. Please call as needed.
--- NOTE | 2017-09-18 13:16 | PN ---
Teaching Attending Note Name of Resident: Lori Peters ATTENDING PHYSICIAN STATEMENT I saw and evaluated the patient. I reviewed the resident's note and discussed the case with the resident. I agree with the resident's findings and plan as documented. SUBJECTIVE: Pt seen and examined in the ICU. Mental status continues to improve. Tolerating PO. OBJECTIVE: Last Vital Signs Temp Pulse Resp BP Pulse Ox 97.5 F L 75 15 141/79 97 09/18/17 10:00 09/18/17 12:00 09/18/17 12:00 09/18/17 12:00 09/17/17 20:49 Intake & Output 09/15/17 09/16/17 09/17/17 09/18/17 23:59 23:59 23:59 23:59 Intake Total 1098 416 894 684 Balance 1098 416 894 684 Weight 115 lb 3.2 oz 113 lb 5.082 oz 114 lb Gen: NAD, more alert Heart: irregular Lung: decreased breath sounds at the bases Abd: soft, nontender Ext: no edema CBC, BMP 09/18/17 06:00 09/18/17 06:00 Active Medications Amlodipine Besylate (Norvasc -) 10 mg PO DAILY [facility] Last Admin: 09/18/17 11:15 Dose: 10 mg Aspirin (Asa -) 81 mg PO DAILY [facility] Last Admin: 09/18/17 09:34 Dose: Not Given Atorvastatin Calcium (Lipitor -) 80 mg PO HS [facility] Last Admin: 09/17/17 21:56 Dose: Not Given Enalaprilat (Vasotec Injection -) 1.25 mg IVPB Q6H-IV SHAHRAM Last Admin: 09/18/17 09:31 Dose: Not Given Heparin Sodium (Porcine) (Heparin -) 1,000 unit IVPUSH PRN PRN PRN Reason: Heparin Heparin Sodium (Porcine) (Heparin -) 5,000 unit IVPUSH PRN PRN PRN Reason: Heparin Sodium Chloride (Normal Saline -) 1,000 mls @ 42 mls/hr IV ASDIR SHAHRAM Last Admin: 09/17/17 14:30 Dose: 42 mls/hr HEPARIN SOD,PORK IN 0.45% NACL (Heparin-1/2ns 25,000 Units/500) 25,000 units in 500 mls @ 16 mls/hr IVPB TITR SHAHRAM; 800 UNITS/HR PRN Reason: Protocol Last Titration: 09/18/17 09:56 Dose: 0 units/hr, 0 mls/hr Labetalol HCl (Normodyne Injection -) 10 mg IVPUSH Q3H PRN PRN Reason: HYPERTENSION Last Admin: 09/16/17 04:00 Dose: 10 mg Lidocaine/Aluminum/Magnesium/Simeth (Magic Mouthwash *Sjr Formula* -) 5 ml MM Q6HPO [facility] Last Admin: 09/18/17 06:31 Dose: Not Given Nystatin (Mycostatin Cream -) 1 applic TP BID [facility] Last Admin: 09/18/17 09:35 Dose: 1 applic Phytonadione (Mephyton -) 2 mg PO ONCE ONE Stop: 09/18/17 12:18 Ranitidine HCl (Zantac -) 150 mg PO DAILY [facility] Last Admin: 09/18/17 09:35 Dose: Not Given Sucralfate (Carafate Oral Suspension -) 1 gm PO BID [facility] Last Admin: 09/18/17 09:34 Dose: Not Given Warfarin Sodium (Coumadin -) 5 mg PO DAILY@1800 [facility] Last Admin: 09/17/17 17:35 Dose: 5 mg ASSESSMENT AND PLAN: Altered Mental Status improving Acute/Subacute CVA Cerebral Edema Atrial Fibrillation Pneumonia Bilateral Pleural Effusions HTN Hyperlipidemia - rate controlled - continue anticoagulation, transition to PO - continue antibiotics - BP control - PO as tolerated - aspiration precautions - DVT prophylaxis - OOB to chair - rehab/PT - can monitor on telemetry
[2017-09-18] MEDS ORDERED: LABETALOL HCL 5 MG/1 ML (100MG/20 ML VIAL) IVPUSH PRN (13:19)
[2017-09-18] MEDS ORDERED: HEPARIN NA (PORCINE) 5,000 UNITS/ML 1ML VIAL IVPUSH PRN (13:19)
[2017-09-18] MEDS: HEPARIN SOD,PORK IN 0.45% NACL 25,000 UNITS/500 ML INFUS.BAG IVPB SCH (13:43)
[2017-09-18] MEDS ORDERED: ENALAPRILAT DIHYDRATE 1.25 MG/1 ML VIAL IVPB SCH (15:00)
[2017-09-18] MEDS ORDERED: FLU VACCINE QUAD 60 MCG/0.5 ML (MDV 17-18) IM ONE (15:30)
[2017-09-18] MEDS: SODIUM CHLORIDE 1,000 ML IV SCH ×2 (16:14→19:59)
--- NOTE | 2017-09-18 17:05 | PN ---
Teaching Attending Note Name of Resident: Tiara Lainez ATTENDING PHYSICIAN STATEMENT Time of evaluation: 9:20 Am I saw and evaluated the patient. I reviewed the resident's note and discussed the case with the resident. I agree with the resident's findings and plan as documented. SUBJECTIVE: Patient seen and examined. AAOX3, no pain, headache, or new complaints. Pleasant , and appropriately conversant. OBJECTIVE: Vital Signs Period Temp Pulse Resp BP Sys/Espinoza Pulse Ox Last 24 Hr 97.5 F-98.5 F 68-80 15-18 101-159/44-82 97 Intake & Output 09/15/17 09/16/17 09/17/17 09/18/17 23:59 23:59 23:59 23:59 Intake Total 1098 945 624 4124 Balance 1098 910 191 6378 Weight 115 lb 3.2 oz 113 lb 5.082 oz 114 lb General: lying in bed in no acute distress CVS;S1S2 irregular Chest: Decreased breath sounds at bases, decreased effort, no wheezing Abdomen: soft, NT, ND extremities: no edema NEuro AAOX3, no facial droop noted, EOMI, PERRLA, moves all extremities. Home Medication List Medication Instructions Recorded Confirmed Type Amlodipine Bes/Olmesartan Med 1 each PO DAILY 09/29/13 09/06/17 History [Moose 5-40 mg Tablet] Furosemide 20 mg PO DAILY 09/06/17 09/06/17 History Active Medications Generic Name Dose Route Start Last Admin Trade Name Freq PRN Reason Stop Dose Admin Amlodipine Besylate 10 mg 09/19/17 10:00 Norvasc - PO DAILY SHAHRAM Aspirin 81 mg 09/19/17 10:00 Asa - PO DAILY SHAHRAM Atorvastatin Calcium 80 mg 09/18/17 22:00 Lipitor - PO HS SHAHRAM Heparin Sodium (Porcine) 1,000 unit 09/18/17 13:19 Heparin - IVPUSH PRN PRN Heparin HEPARIN SOD,PORK IN 0.45% NACL 25,000 units in 500 mls @ 16 mls/hr 09/18/17 13 :19 09/18/17 13:43 Heparin-1/2ns 25,000 Units/500 IVPB 550 units/hr TITR SHAHRAM 11 mls/hr Protocol Administration 800 UNITS/HR Sodium Chloride 1,000 mls @ 42 mls/hr 09/18/17 13:19 09/18/17 16:14 Normal Saline - IV 42 mls/hr ASDIR SHAHRAM Administration Labetalol HCl 10 mg 09/18/17 13:19 Normodyne Injection - IVPUSH Q3H PRN HYPERTENSION Lidocaine/Aluminum/Magnesium/Simeth 5 ml 09/18/17 18:00 Magic Mouthwash *Sjr Formula* - MM Q6HPO SHAHRAM Nystatin 1 applic 09/18/17 22:00 Mycostatin Cream - TP BID [facility] Ranitidine HCl 150 mg 09/19/17 10:00 Zantac - PO DAILY SHAHRAM Sucralfate 1 gm 09/18/17 22:00 Carafate Oral Suspension - PO BID [facility] Warfarin Sodium 5 mg 09/18/17 18:00 Coumadin - PO DAILY@1800 [facility] Laboratory Results - last 24 hr 09/18/17 09/18/17 09/18/17 06:00 06:00 06:00 WBC 48.1 H* RBC 5.24 H Hgb 15.0 Hct 46.5 H MCV 88.8 MCH 28.6 MCHC 32.2 RDW 13.1 Plt Count 277 D MPV 9.1 Neutrophils % No Result Required. Neutrophils % (Manual) 87.9 H Band Neutrophils % 0.0 Lymphocytes % No Result Required. Lymphocytes % (Manual) 0.0 L Monocytes % (Manual) 11 H Eosinophils % (Manual) 1.0 Basophils % (Manual) 0.0 Myelocytes % (Man) 0 Metamyelocytes 0 Hypochromia 0 Toxic Granulation 0 Dohle Bodies 0 Platelet Estimate Normal Polychromasia 0 Poikilocytosis 0 Basophilic Stippling 0 Anisocytosis 0 Microcytosis 0 Macrocytosis 0 Spherocytes 0 Sickle Cells 0 Target Cells 0 Tear Drop Cells 0 Ovalocytes 0 Stomatocytes 0 Helmet Cells 0 [place] Bodies 0 [place] Rings 0 Kelly Cells 0 Acanthocytes (Spur) 0 Fragmented RBCs 0 Schistocytes 0 PT with INR 64.80 H INR 5.73 H* D PTT (Actin FS) 148.1 H D Sodium Potassium Chloride Carbon Dioxide Anion Gap BUN Creatinine Creat Clearance w eGFR Random Glucose Calcium Phosphorus Magnesium Total Bilirubin AST ALT Alkaline Phosphatase Total Protein Albumin 09/18/17 09/18/17 06:00 09:15 WBC RBC Hgb Hct MCV MCH MCHC RDW Plt Count MPV Neutrophils % Neutrophils % (Manual) Band Neutrophils % Lymphocytes % Lymphocytes % (Manual) Monocytes % (Manual) Eosinophils % (Manual) Basophils % (Manual) Myelocytes % (Man) Metamyelocytes Hypochromia Toxic Granulation Dohle Bodies Platelet Estimate Polychromasia Poikilocytosis Basophilic Stippling Anisocytosis Microcytosis Macrocytosis Spherocytes Sickle Cells Target Cells Tear Drop Cells Ovalocytes Stomatocytes Helmet Cells [place] Bodies [place] Rings Kelly Cells Acanthocytes (Spur) Fragmented RBCs Schistocytes PT with INR 79.00 H INR 6.99 H* PTT (Actin FS) Sodium 136 Potassium 4.5 Chloride 100 Carbon Dioxide 24 Anion Gap 12 BUN 28 H Creatinine 0.8 Creat Clearance w eGFR > 60 Random Glucose 148 H D Calcium 8.4 L Phosphorus 3.3 D Magnesium 2.4 Total Bilirubin 0.8 AST 58 H D ALT 96 H D Alkaline Phosphatase 101 Total Protein 5.8 L Albumin 2.8 L ASSESSMENT AND PLAN: 82 yo F with PMHx of HTN, HLD, admitted with shortness of breath, likely LLL CAP with sepsis, with component of acute diastolic heart failure, hypertensive urgency and Possible right acute/subacute frontoparietal CVA. 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 -New onset Atrial fibrillation with RVR on 09/10/2017 -Agitation, suspect from mulitiple CVA +/- metabolic toxic encephalopathy from PNA/CHF -Sustained Ventricular tachycardia (9 beats) on 09/08/2017 -Hyperkalemia on admission, ?etiology, ARB related, resolved -Hypertensive urgency, resolved -Hyperlipidemia -Prior heavy smoker -Leucocytosis, patient reports famhx of CLL and has had chronic leucocytosis around 16 at baseline but does not want a bone marrow biopsy or additional work up -coumadin coagulopathy PLan: INR noted,per ICU, patient received 2.5 mg Vitamin K PO and continuing heparin drip. ?Underlying nutritional status contributory to INR elevation. Will continue heparin drip, monitoring for bleed or change in mental status with neuro checks for the same. Neurology Dr. Pérez updated of the same, will follow up for additional recs. BP improved. Continue oral antihypertensives. Patient AAOX3, conversant and appopriate. Will reconsult palliative to address gaols of care. Patient has declined further workup for her leucocytosis though states suspects she has CLL and her brother has h/o CLL as well. Declined neurosurgical intervention in the past, is current DNI per records. Will continue to address overall goals of care. Plan discussed with patient in detail, all questions answred. Critical care time spent in ICU 35 min.
[2017-09-18] MEDS ORDERED: WARFARIN NA 5 MG TABLET (UD) PO SCH (18:00)
--- NOTE | 2017-09-18 18:00 | PN ---
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 (short form) - Note 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: Seen in CCU.. Patient is awake and alert, no SOB, chest pain or discomfort nreported, in atrial fib. with controlled ventricular response. Active Medications Amlodipine Besylate (Norvasc -) 10 mg PO DAILY [facility] Aspirin (Asa -) 81 mg PO DAILY [facility] Atorvastatin Calcium (Lipitor -) 80 mg PO HS SHAHRAM Heparin Sodium (Porcine) (Heparin -) 1,000 unit IVPUSH PRN PRN PRN Reason: Heparin HEPARIN SOD,PORK IN 0.45% NACL (Heparin-1/2ns 25,000 Units/500) 25,000 units in 500 mls @ 16 mls/hr IVPB TITR SHAHRAM; 800 UNITS/HR PRN Reason: Protocol Last Admin: 09/18/17 13:43 Dose: 550 units/hr, 11 mls/hr Sodium Chloride (Normal Saline -) 1,000 mls @ 42 mls/hr IV ASDIR [facility] Last Admin: 09/18/17 16:14 Dose: 42 mls/hr Labetalol HCl (Normodyne Injection -) 10 mg IVPUSH Q3H PRN PRN Reason: HYPERTENSION Lidocaine/Aluminum/Magnesium/Simeth (Magic Mouthwash *Sjr Formula* -) 5 ml MM Q6HPO [facility] Last Admin: 09/18/17 17:05 Dose: Not Given Nystatin (Mycostatin Cream -) 1 applic TP BID [facility] Ranitidine HCl (Zantac -) 150 mg PO DAILY [facility] Sucralfate (Carafate Oral Suspension -) 1 gm PO BID [facility] 82 year old female is lethargic but alert. No pallor or cyanosis, clubbing or jaundice. L Last Vital Signs Temp Pulse Resp BP Pulse Ox 97.5 F L 80 16 110/44 97 09/18/17 10:00 09/18/17 16:15 09/18/17 16:15 09/18/17 16:15 09/17/17 20:49 Intake & Output 09/15/17 09/16/17 09/17/17 09/18/17 23:59 23:59 23:59 23:59 Intake Total 1098 278 379 4624 Balance 1098 128 118 5008 Weight 115 lb 3.2 oz 113 lb 5.082 oz 114 lb NECK: Supple, no JVD, No HJR, carotids are 2+, no bruits are heard. HEART: PMI is in 5th ICS, no heaves or thrills. S1 and S2 are normal. No murmur or gallops were heard. LUNGS: Clear on auscultation ABDOMEN: Soft, nontender, no organomegaly or palpable masses felt. EXTREMITIES: No calf tenderness or dependent edema. 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 CBC, BMP 09/18/17 06:00 09/18/17 06:00 A: CVA. 2. Hypertension, presently normotensive. 3. Rising leukocyte count, etiology needs to be determined. 4. Atrial fibrillation with cotrolled ventricular response. 5. Hypercholestrolemia 6. S/p CHF. Recommendations: 1. Hematological evaluation. 2. Oral anticoagulation. 3. Increase caloric intake Problem List - Problems (1) Sepsis Code(s): A41.9 - SEPSIS, UNSPECIFIED ORGANISM (2) Accelerated hypertension Code(s): I10 - ESSENTIAL (PRIMARY) HYPERTENSION (3) Ventricular premature beats, contractions, or systoles Code(s): I49.3 - VENTRICULAR PREMATURE DEPOLARIZATION (4) Altered mental status Code(s): R41.82 - ALTERED MENTAL STATUS, UNSPECIFIED Qualifiers: Altered mental status type: transient alteration of awareness Qualified Code(s): R40.4 - Transient alteration of awareness (5) Pneumonia Code(s): J18.9 - PNEUMONIA, UNSPECIFIED ORGANISM Qualifiers: Pneumonia type: due to unspecified organism Laterality: left Lung location: lower lobe of lung Qualified Code(s): J18.1 - Lobar pneumonia, unspecified organism (6) Left ventricular failure Code(s): I50.1 - LEFT VENTRICULAR FAILURE, UNSPECIFIED
--- NOTE | 2017-09-18 21:09 | PN ---
Physical Exam: SUBJECTIVE: Patient seen and examined. Pt denies pain, headache, fever, chills. No events overnight. OBJECTIVE: Vital Signs Period Temp Pulse Resp BP Sys/Espinoza Pulse Ox Last 24 Hr 97.5 F-98.5 F 68-82 15-18 101-159/44-82 97-98 GENERAL: The patient is awake, alert, and fully oriented, in no acute distress. LUNGS: Breath sounds equal, clear to auscultation bilaterally, no wheezes, no crackles, no accessory muscle use. HEART: irregularly irregular, +S1/S2. No murmur. ABDOMEN: Soft, nontender, nondistended, (+) bowel sounds x 4. EXTREMITIES: Warm, well-perfused, no edema. NEUROLOGICAL: AAOx3, no facial droop. Pt able to move all extremities. SKIN: Warm, dry, normal turgor, no rashes or lesions noted Laboratory Results - last 24 hr 09/18/17 09/18/17 09/18/17 06:00 06:00 06:00 WBC 48.1 H* RBC 5.24 H Hgb 15.0 Hct 46.5 H MCV 88.8 MCH 28.6 MCHC 32.2 RDW 13.1 Plt Count 277 D MPV 9.1 Neutrophils % No Result Required. Neutrophils % (Manual) 87.9 H Band Neutrophils % 0.0 Lymphocytes % No Result Required. Lymphocytes % (Manual) 0.0 L Monocytes % (Manual) 11 H Eosinophils % (Manual) 1.0 Basophils % (Manual) 0.0 Myelocytes % (Man) 0 Metamyelocytes 0 Hypochromia 0 Toxic Granulation 0 Dohle Bodies 0 Platelet Estimate Normal Polychromasia 0 Poikilocytosis 0 Basophilic Stippling 0 Anisocytosis 0 Microcytosis 0 Macrocytosis 0 Spherocytes 0 Sickle Cells 0 Target Cells 0 Tear Drop Cells 0 Ovalocytes 0 Stomatocytes 0 Helmet Cells 0 [place] Bodies 0 [place] Rings 0 [place] Cells 0 Acanthocytes (Spur) 0 Fragmented RBCs 0 Schistocytes 0 PT with INR 64.80 H INR 5.73 H* D PTT (Actin FS) 148.1 H D Sodium Potassium Chloride Carbon Dioxide Anion Gap BUN Creatinine Creat Clearance w eGFR Random Glucose Calcium Phosphorus Magnesium Total Bilirubin AST ALT Alkaline Phosphatase Total Protein Albumin 09/18/17 09/18/17 09/18/17 06:00 09:15 17:15 WBC RBC Hgb Hct MCV MCH MCHC RDW Plt Count MPV Neutrophils % Neutrophils % (Manual) Band Neutrophils % Lymphocytes % Lymphocytes % (Manual) Monocytes % (Manual) Eosinophils % (Manual) Basophils % (Manual) Myelocytes % (Man) Metamyelocytes Hypochromia Toxic Granulation Dohle Bodies Platelet Estimate Polychromasia Poikilocytosis Basophilic Stippling Anisocytosis Microcytosis Macrocytosis Spherocytes Sickle Cells Target Cells Tear Drop Cells Ovalocytes Stomatocytes Helmet Cells [place] Bodies [place] Rings Kelly Cells Acanthocytes (Spur) Fragmented RBCs Schistocytes PT with INR 79.00 H INR 6.99 H* PTT (Actin FS) 65.7 H D Sodium 136 Potassium 4.5 Chloride 100 Carbon Dioxide 24 Anion Gap 12 BUN 28 H Creatinine 0.8 Creat Clearance w eGFR > 60 Random Glucose 148 H D Calcium 8.4 L Phosphorus 3.3 D Magnesium 2.4 Total Bilirubin 0.8 AST 58 H D ALT 96 H D Alkaline Phosphatase 101 Total Protein 5.8 L Albumin 2.8 L Active Medications Generic Name Dose Route Start Last Admin Trade Name Freq PRN Reason Stop Dose Admin Amlodipine Besylate 10 mg 09/19/17 10:00 Norvasc - PO DAILY SHAHRAM Aspirin 81 mg 09/19/17 10:00 Asa - PO DAILY SHAHRAM Atorvastatin Calcium 80 mg 09/18/17 22:00 Lipitor - PO HS SHAHRAM Heparin Sodium (Porcine) 1,000 unit 09/18/17 13:19 Heparin - IVPUSH PRN PRN Heparin HEPARIN SOD,PORK IN 0.45% NACL 25,000 units in 500 mls @ 16 mls/hr 09/18/17 13 :19 09/18/17 13:43 Heparin-1/2ns 25,000 Units/500 IVPB 550 units/hr TITR SHAHRAM 11 mls/hr Protocol Administration 800 UNITS/HR Sodium Chloride 1,000 mls @ 42 mls/hr 09/18/17 13:19 09/18/17 16:14 Normal Saline - IV 42 mls/hr ASDIR SHAHRAM Administration Labetalol HCl 10 mg 09/18/17 13:19 Normodyne Injection - IVPUSH Q3H PRN HYPERTENSION Lidocaine/Aluminum/Magnesium/Simeth 5 ml 09/18/17 18:00 09/18/17 17:05 Magic Mouthwash *Sjr Formula* - MM Not Given Q6HPO [facility] Nystatin 1 applic 09/18/17 22:00 Mycostatin Cream - TP BID [facility] Ranitidine HCl 150 mg 09/19/17 10:00 Zantac - PO DAILY [facility] Sucralfate 1 gm 09/18/17 22:00 Carafate Oral Suspension - PO BID [facility] ASSESSMENT/PLAN: 82yo F with PMH of htn, hld, presented with sob, found to have Left lung CAP with sepsis, htn urgency and acute frontoparietal CVA. # new onset afib - rate controlled - on heparin drip - coumadin bridge -> INR 6.99 today -> Coumadin held for tomorrow and 2.5mg Phytonadione given -> continue to monitor # acute hypoxic respiratory failure - likely from multiple sources: bibasilar pna and diastolic CHF - completed course of antibiotics - current O2 saturation wnl # Leukocytosis - trending up - full sepsis work-up negative - family hx of brother with CLL - pt has stated she does not want to have a diagnosis for this leukocytosis, so wishes will be respected and this will not be further worked-up # acute metabolic encephalopathy - 2/2 infection/pna and acute CVA - improved - low threshold for repeat imaging # acute Right PICA CVA with local mass effect - neurochecks q4hr - pt has declined neurosurgerical intervention in the past # htn urgency - improved - continue Norvasc and Labetalol # hld - continue Lipitor # FEN - Fluids: NS @ 42 ml/hr - Electrolytes: wnl, continue to monitor - Nutrition: soft diet with Ensure Enlive, Magic Cup, and Ensure Compact nutrition supplements # Prophylaxis - DVT ppx with Heparin drip - GI ppx with Zantac and Sucralafate # Status: DNI - reconsult Palliative Care to address overall goals of care Visit type - Emergency Visit Emergency Visit: Yes ED Registration Date: 09/06/17 Care time: The patient presented to the Emergency Department on the above date and was hospitalized for further evaluation of their emergent condition. - New Patient This patient is new to me today: Yes Date on this admission: 09/18/17 - Critical Care Critical Care patient: Yes Total Critical Care Time (in minutes): 45 Critical Care Statement: The care of this patient involved high complexity decision making to prevent further life threatening deterioration of the patient 's condition and/or to evaluate & treat vital organ system(s) failure or risk of failure.
[2017-09-18] MEDS: ATORVASTATIN CA 80 MG TABLET (FP) PO SCH (21:14)
[2017-09-18] MEDS: LABETALOL HCL INJECTION 1,000 MG in DEXTROSE 5%-WATER - 800 ML IV SCH (23:01)
[2017-09-19] MEDS ORDERED: METOCLOPRAMIDE HCL 10 MG TABLET (FP) PO ONE (03:55)
[2017-09-19] MEDS: MAG HYDROX/ALH/SMC/DPHA/LIDO 240 ML MOUTHWASH MM SCH ×2 (05:24→17:58)
[2017-09-19 08:16] LABS: HEMATOCRIT 44.8 % (32.4-45.2); HEMOGLOBIN 14.3 GM/dL (10.7-15.3); MCH 28.6 pg (25.7-33.7); MEAN CELL VOLUME 89.4 fl (80-96); MEAN PLT VOLUME 9.3 fl (7.5-11.1); PLATELET COUNT 236 K/MM3 (134-434); RBC 5.01 M/mm3 (3.60-5.2); RDW 12.7 % (11.6-15.6)
[2017-09-19 08:21] LABS: WHITE BLOOD COUNT 39.6 K/mm3 (4.0-10.0)
[2017-09-19 08:23] LABS: INR 1.89 (0.82-1.09); PROTHROMBIN TIME (PATIENT) 21.4 SEC (9.98-11.88)
[2017-09-19 08:53] LABS: ALBUMIN 2.4 g/dl (3.4-5.0); ANION GAP 13 (8-16); BLOOD UREA NITROGEN 23 mg/dL (7-18); CALCIUM 7.6 mg/dL (8.5-10.1); CHLORIDE 105 mmol/L (98-107); CO2 21 mmol/L (21-32); GLUCOSE,RANDOM 77 mg/dL (74-106); MAGNESIUM 2.3 mg/dL (1.8-2.4); SODIUM 139 mmol/L (136-145)
[2017-09-19 08:58] LABS: ALK PHOS 95 U/L (45-117); BILIRUBIN,TOTAL 1.2 mg/dL (0.2-1.0); CREATININE 0.6 mg/dL (0.55-1.02); PHOSPHOROUS 3.3 mg/dL (2.5-4.9); SGOT/AST 51 U/L (15-37); SGPT/ALT 108 U/L (12-78); TOT PROT 5.1 g/dl (6.4-8.2)
[2017-09-19 10:44] LABS: ACANTHOCYTES 0; ANISOCYTOSIS 0; HELMET CELLS 0; HOWELL-JOLLY BODIES 0; MACROCYTOSIS 0; OVALOCYTE 0; PLATELET ESTIMATE DECREASED; SICKELED CELLS 0; TARGET CELLS 0; TEAR DROP CELLS 0; TOXIC GRANULATION 0
[2017-09-19] MEDS: ASPIRIN 81 MG CHEWABLE TABLETS PO SCH (11:05)
[2017-09-19] MEDS: amLODIPine BESYLATE 10 MG TABLET (FP) PO SCH (11:05)
[2017-09-19] MEDS: RANITIDINE HCL 150 MG TABLET (FP) PO SCH (11:05)
[2017-09-19] MEDS: HEPARIN SOD,PORK IN 0.45% NACL 25,000 UNITS/500 ML INFUS.BAG IVPB SCH ×2 (11:08→21:32)
--- NOTE | 2017-09-19 12:06 | PN ---
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 History of hypertension and hypercholesterolemia and new onset atrial fibrillation. Patient is lethargic, alert and is oriented. No history of SOB, chest pain or discomfort. Patient refused hematological evaluation. Active Medications Generic Name Dose Route Start Last Admin Trade Name Freq PRN Reason Stop Dose Admin Amlodipine Besylate 10 mg 09/19/17 10:00 09/19/17 11:05 Norvasc - PO 10 mg DAILY SHAHRAM Administration Aspirin 81 mg 09/19/17 10:00 09/19/17 11:05 Asa - PO 81 mg DAILY SHAHRAM Administration Atorvastatin Calcium 80 mg 09/18/17 22:00 09/18/17 21:14 Lipitor - PO 80 mg HS SHAHRAM Administration Heparin Sodium (Porcine) 1,000 unit 09/18/17 13:19 Heparin - IVPUSH PRN PRN Heparin HEPARIN SOD,PORK IN 0.45% NACL 25,000 units in 500 mls @ 16 mls/hr 09/18/17 13 :19 09/19/17 11:08 Heparin-1/2ns 25,000 Units/500 IVPB 550 units/hr TITR SHAHRAM 11 mls/hr Protocol Administration 800 UNITS/HR Sodium Chloride 1,000 mls @ 42 mls/hr 09/18/17 13:19 09/18/17 16:14 Normal Saline - IV 42 mls/hr ASDIR SHAHRAM Administration Labetalol HCl 10 mg 09/18/17 13:19 Normodyne Injection - IVPUSH Q3H PRN HYPERTENSION Lidocaine/Aluminum/Magnesium/Simeth 5 ml 09/18/17 18:00 09/19/17 05:24 Magic Mouthwash *Sjr Formula* - MM Not Given Q6HPO SHAHRAM Nystatin 1 applic 09/18/17 22:00 09/18/17 21:15 Mycostatin Cream - TP 1 applic BID SHAHRAM Administration Ranitidine HCl 150 mg 09/19/17 10:00 09/19/17 11:05 Zantac - PO 150 mg DAILY SHAHRAM Administration Sucralfate 1 gm 09/18/17 22:00 09/18/17 21:12 Carafate Oral Suspension - PO Not Given BID [facility] 82 year old female is lethargic but alert. No pallor or cyanosis, clubbing or jaundice. Last Vital Signs Temp Pulse Resp BP Pulse Ox 98 F 70 20 153/80 98 09/19/17 10:00 09/19/17 10:17 09/19/17 10:00 09/19/17 10:00 09/19/17 10:17 NECK: Supple, no JVD, No HJR, carotids are 2+, no bruits are heard. HEART: PMI is in 5th ICS, no heaves or thrills. S1 and S2 are normal. No murmur or gallops were heard. LUNGS: Clear on auscultation ABDOMEN: Soft, nontender, no organomegaly or palpable masses felt. EXTREMITIES: No calf tenderness or dependent edema. 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 CBC, BMP 09/19/17 05:35 09/19/17 05:35 Laboratory Results - last 24 hr 09/15/17 09/18/17 09/18/17 05:43 06:00 17:15 WBC RBC Hgb Hct MCV MCH MCHC RDW Plt Count MPV Neutrophils % Neutrophils % (Manual) 87.9 H Band Neutrophils % 0.0 Lymphocytes % Lymphocytes % (Manual) 0.0 L Monocytes % (Manual) 11 H Eosinophils % (Manual) 1.0 Basophils % (Manual) 0.0 Myelocytes % (Man) 0 Metamyelocytes 0 Hypochromia 0 Toxic Granulation 0 Dohle Bodies 0 Platelet Estimate Normal Polychromasia 0 Poikilocytosis 0 Basophilic Stippling 0 Anisocytosis 0 Microcytosis 0 Macrocytosis 0 Spherocytes 0 Sickle Cells 0 Target Cells 0 Tear Drop Cells 0 Ovalocytes 0 Stomatocytes 0 Helmet Cells 0 [place] Bodies 0 [place] Rings 0 Kelly Cells 0 Acanthocytes (Spur) 0 Fragmented RBCs 0 Schistocytes 0 PT with INR INR PTT (Actin FS) 65.7 H D Sodium Potassium Chloride Carbon Dioxide Anion Gap BUN Creatinine Creat Clearance w eGFR POC Glucometer 180.29456 Random Glucose Calcium Phosphorus Magnesium Total Bilirubin AST ALT Alkaline Phosphatase Total Protein Albumin Stool Occult Blood 09/18/17 09/19/17 09/19/17 22:15 05:35 05:35 WBC 39.6 H* RBC 5.01 Hgb 14.3 Hct 44.8 MCV 89.4 MCH 28.6 MCHC 32.0 RDW 12.7 Plt Count 236 MPV 9.3 Neutrophils % No Result Required. Neutrophils % (Manual) 78.2 Band Neutrophils % 0.0 Lymphocytes % No Result Required. Lymphocytes % (Manual) 5.9 L D Monocytes % (Manual) 13 H Eosinophils % (Manual) 1.0 Basophils % (Manual) 0.0 Myelocytes % (Man) 0 Metamyelocytes 1 D Hypochromia 0 Toxic Granulation 0 Dohle Bodies 0 Platelet Estimate Decreased Polychromasia 0 Poikilocytosis 0 Basophilic Stippling 0 Anisocytosis 0 Microcytosis 0 Macrocytosis 0 Spherocytes 0 Sickle Cells 0 Target Cells 0 Tear Drop Cells 0 Ovalocytes 0 Stomatocytes 0 Helmet Cells 0 [place] Bodies 0 [place] Rings 0 Kelly Cells 0 Acanthocytes (Spur) 0 Fragmented RBCs 0 Schistocytes 0 PT with INR 21.40 H INR 1.89 H D PTT (Actin FS) Sodium Potassium Chloride Carbon Dioxide Anion Gap BUN Creatinine Creat Clearance w eGFR POC Glucometer Random Glucose Calcium Phosphorus Magnesium Total Bilirubin AST ALT Alkaline Phosphatase Total Protein Albumin Stool Occult Blood Positive 09/19/17 09/19/17 05:35 05:35 WBC RBC Hgb Hct MCV MCH MCHC RDW Plt Count MPV Neutrophils % Neutrophils % (Manual) Band Neutrophils % Lymphocytes % Lymphocytes % (Manual) Monocytes % (Manual) Eosinophils % (Manual) Basophils % (Manual) Myelocytes % (Man) Metamyelocytes Hypochromia Toxic Granulation Dohle Bodies Platelet Estimate Polychromasia Poikilocytosis Basophilic Stippling Anisocytosis Microcytosis Macrocytosis Spherocytes Sickle Cells Target Cells Tear Drop Cells Ovalocytes Stomatocytes Helmet Cells [place] Bodies [place] Rings [place] Cells Acanthocytes (Spur) Fragmented RBCs Schistocytes PT with INR INR PTT (Actin FS) 54.0 H Sodium 139 Potassium 4.0 Chloride 105 Carbon Dioxide 21 Anion Gap 13 BUN 23 H Creatinine 0.6 D Creat Clearance w eGFR > 60 POC Glucometer Random Glucose 77 D Calcium 7.6 L Phosphorus 3.3 Magnesium 2.3 Total Bilirubin 1.2 H D AST 51 H ALT 108 H Alkaline Phosphatase 95 Total Protein 5.1 L Albumin 2.4 L Stool Occult Blood A: 1. CVA. 2. Hypertension, presently normotensive. 3. Rising leukocyte count, etiology needs to be determined. 4. Atrial fibrillation with cotrolled ventricular response. 5. Hypercholestrolemia 6. S/p CHF. Recommendations: 1. Oral anticoagulation. 2. Increase caloric intake 3. Bedside PT. Problem List - Problems (1) Sepsis Code(s): A41.9 - SEPSIS, UNSPECIFIED ORGANISM (2) Accelerated hypertension Code(s): I10 - ESSENTIAL (PRIMARY) HYPERTENSION (3) Ventricular premature beats, contractions, or systoles Code(s): I49.3 - VENTRICULAR PREMATURE DEPOLARIZATION (4) Altered mental status Code(s): R41.82 - ALTERED MENTAL STATUS, UNSPECIFIED Qualifiers: Altered mental status type: transient alteration of awareness Qualified Code(s): R40.4 - Transient alteration of awareness (5) Pneumonia Code(s): J18.9 - PNEUMONIA, UNSPECIFIED ORGANISM Qualifiers: Pneumonia type: due to unspecified organism Laterality: left Lung location: lower lobe of lung Qualified Code(s): J18.1 - Lobar pneumonia, unspecified organism (6) Left ventricular failure Code(s): I50.1 - LEFT VENTRICULAR FAILURE, UNSPECIFIED
--- NOTE | 2017-09-19 12:57 | PN ---
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 Illness: PULMONARY ALERT,COMFORTABLE,-RESP DISTRESS - Current Medication List Current Medications: Active Medications Amlodipine Besylate (Norvasc -) 10 mg PO DAILY [facility] Last Admin: 09/19/17 11:05 Dose: 10 mg Aspirin (Asa -) 81 mg PO DAILY [facility] Last Admin: 09/19/17 11:05 Dose: 81 mg Atorvastatin Calcium (Lipitor -) 80 mg PO HS [facility] Last Admin: 09/18/17 21:14 Dose: 80 mg Heparin Sodium (Porcine) (Heparin -) 1,000 unit IVPUSH PRN PRN PRN Reason: Heparin HEPARIN SOD,PORK IN 0.45% NACL (Heparin-1/2ns 25,000 Units/500) 25,000 units in 500 mls @ 16 mls/hr IVPB TITR SHAHRAM; 800 UNITS/HR PRN Reason: Protocol Last Admin: 09/19/17 11:08 Dose: 550 units/hr, 11 mls/hr Sodium Chloride (Normal Saline -) 1,000 mls @ 42 mls/hr IV ASDIR [facility] Last Admin: 09/18/17 16:14 Dose: 42 mls/hr Labetalol HCl (Normodyne Injection -) 10 mg IVPUSH Q3H PRN PRN Reason: HYPERTENSION Lidocaine/Aluminum/Magnesium/Simeth (Magic Mouthwash *Sjr Formula* -) 5 ml MM Q6HPO [facility] Last Admin: 09/19/17 05:24 Dose: Not Given Nystatin (Mycostatin Cream -) 1 applic TP BID [facility] Last Admin: 09/18/17 21:15 Dose: 1 applic Ranitidine HCl (Zantac -) 150 mg PO DAILY [facility] Last Admin: 09/19/17 11:05 Dose: 150 mg Sucralfate (Carafate Oral Suspension -) 1 gm PO BID [facility] Last Admin: 09/18/17 21:12 Dose: Not Given - Objective Vital Signs: Vital Signs Temperature 98 F 09/19/17 10:00 Pulse Rate 70 09/19/17 10:17 Respiratory Rate 20 09/19/17 10:00 Blood Pressure 153/80 09/19/17 10:00 O2 Sat by Pulse Oximetry (%) 98 09/19/17 10:17 Constitutional: Yes: Well Nourished, Calm Eyes: Yes: WNL HENT: Yes: WNL Neck: Yes: WNL Cardiovascular: Yes: Pulse Irregular, S1, S2 Respiratory: Yes: CTA Bilaterally Gastrointestinal: Yes: Normal Bowel Sounds, Soft Extremities: Yes: WNL Edema: No Labs: CBC, BMP 09/19/17 05:35 09/19/17 05:35 INR, PTT INR 1.89 (0.82-1.09) H D 09/19/17 05:35 Problem List - Problems (1) Afib Code(s): I48.91 - UNSPECIFIED ATRIAL FIBRILLATION (2) (HFpEF) heart failure with preserved ejection fraction Code(s): I50.30 - UNSPECIFIED DIASTOLIC (CONGESTIVE) HEART FAILURE (3) Altered mental status Code(s): R41.82 - ALTERED MENTAL STATUS, UNSPECIFIED Qualifiers: Altered mental status type: transient alteration of awareness Qualified Code(s): R40.4 - Transient alteration of awareness (4) CVA (cerebral vascular accident) Code(s): I63.9 - CEREBRAL INFARCTION, UNSPECIFIED Qualifiers: CVA mechanism: unspecified Qualified Code(s): I63.9 - Cerebral infarction, unspecified Assessment/Plan ASSESSMENT AND PLAN: Altered Mental Status improving Acute/Subacute CVA Cerebral Edema Atrial Fibrillation Pneumonia Bilateral Pleural Effusions HTN Hyperlipidemia - rate controlled - continue anticoagulation, transition to PO - BP control - PO as tolerated - aspiration precautions - DVT prophylaxis - OOB to chair - rehab/PT - chest x-ray DR POOLE
--- NOTE | 2017-09-19 16:41 | PN ---
Teaching Attending Note Name of Resident: Tiara Lainez ATTENDING PHYSICIAN STATEMENT Time of evaluation: 10:00 Am I saw and evaluated the patient. I reviewed the resident's note and discussed the case with the resident. I agree with the resident's findings and plan as documented. SUBJECTIVE: Patient seen and examined, OX3, but reports feels "disconnected", no pain, headache or new complaints. OBJECTIVE: Vital Signs Period Temp Pulse Resp BP Sys/Espinoza Pulse Ox Last 24 Hr 97.4 F-98.3 F 70-83 18-20 122-158/57-80 98-98 Intake & Output 09/16/17 09/17/17 09/18/17 09/19/17 23:59 23:59 23:59 23:59 Intake Total 272 565 9566 Balance 944 165 0527 Weight 113 lb 5.082 oz 114 lb General: lying in bed in no acute distress CVS:S1s2 irregular Chest: decreased breath sounds at bases Abdomen: soft, NT, ND, positive bowel sounds Neuro AAOX3, though occasionally tangential in conversation, reports feeling ' disconnected' though having appropriate conversations, facial symmetry, subtle LUE weakness (improved from last week's exam), unchanged exam otherwise Extremities: no edema Home Medication List Medication Instructions Recorded Confirmed Type Amlodipine Bes/Olmesartan Med 1 each PO DAILY 09/29/13 09/06/17 History [Moose 5-40 mg Tablet] Furosemide 20 mg PO DAILY 09/06/17 09/06/17 History Active Medications Generic Name Dose Route Start Last Admin Trade Name Freq PRN Reason Stop Dose Admin Amlodipine Besylate 10 mg 09/19/17 10:00 09/19/17 11:05 Norvasc - PO 10 mg DAILY [facility] Administration Aspirin 81 mg 09/19/17 10:00 09/19/17 11:05 Asa - PO 81 mg DAILY [facility] Administration Atorvastatin Calcium 80 mg 09/18/17 22:00 09/18/17 21:14 Lipitor - PO 80 mg HS [facility] Administration Heparin Sodium (Porcine) 1,000 unit 09/18/17 13:19 Heparin - IVPUSH PRN PRN Heparin HEPARIN SOD,PORK IN 0.45% NACL 25,000 units in 500 mls @ 16 mls/hr 09/18/17 13 :19 09/19/17 11:08 Heparin-1/2ns 25,000 Units/500 IVPB 550 units/hr TITR SHAHRAM 11 mls/hr Protocol Administration 800 UNITS/HR Sodium Chloride 1,000 mls @ 42 mls/hr 09/18/17 13:19 09/18/17 16:14 Normal Saline - IV 42 mls/hr ASDIR [facility] Administration Labetalol HCl 10 mg 09/18/17 13:19 Normodyne Injection - IVPUSH Q3H PRN HYPERTENSION Lidocaine/Aluminum/Magnesium/Simeth 5 ml 09/18/17 18:00 09/19/17 05:24 Magic Mouthwash *Sjr Formula* - MM Not Given Q6HPO [facility] Nystatin 1 applic 09/18/17 22:00 09/18/17 21:15 Mycostatin Cream - TP 1 applic BID [facility] Administration Ranitidine HCl 150 mg 09/19/17 10:00 09/19/17 11:05 Zantac - PO 150 mg DAILY [facility] Administration Sucralfate 1 gm 09/18/17 22:00 09/18/17 21:12 Carafate Oral Suspension - PO Not Given BID [facility] Warfarin Sodium 1 mg 09/19/17 18:00 Coumadin - PO DAILY@1800 [facility] Laboratory Results - last 24 hr 09/15/17 09/18/17 09/18/17 05:43 17:15 22:15 WBC RBC Hgb Hct MCV MCH MCHC RDW Plt Count MPV Neutrophils % Neutrophils % (Manual) Band Neutrophils % Lymphocytes % Lymphocytes % (Manual) Monocytes % (Manual) Eosinophils % (Manual) Basophils % (Manual) Myelocytes % (Man) Metamyelocytes Hypochromia Toxic Granulation Dohle Bodies Platelet Estimate Polychromasia Poikilocytosis Basophilic Stippling Anisocytosis Microcytosis Macrocytosis Spherocytes Sickle Cells Target Cells Tear Drop Cells Ovalocytes Stomatocytes Helmet Cells [place] Bodies [place] Rings [place] Cells Acanthocytes (Spur) Fragmented RBCs Schistocytes PT with INR INR PTT (Actin FS) 65.7 H D Sodium Potassium Chloride Carbon Dioxide Anion Gap BUN Creatinine Creat Clearance w eGFR POC Glucometer [phone] Random Glucose Calcium Phosphorus Magnesium Total Bilirubin AST ALT Alkaline Phosphatase Total Protein Albumin Stool Occult Blood Positive 09/19/17 09/19/17 09/19/17 05:35 05:35 05:35 WBC 39.6 H* RBC 5.01 Hgb 14.3 Hct 44.8 MCV 89.4 MCH 28.6 MCHC 32.0 RDW 12.7 Plt Count 236 MPV 9.3 Neutrophils % No Result Required. Neutrophils % (Manual) 78.2 Band Neutrophils % 0.0 Lymphocytes % No Result Required. Lymphocytes % (Manual) 5.9 L D Monocytes % (Manual) 13 H Eosinophils % (Manual) 1.0 Basophils % (Manual) 0.0 Myelocytes % (Man) 0 Metamyelocytes 1 D Hypochromia 0 Toxic Granulation 0 Dohle Bodies 0 Platelet Estimate Decreased Polychromasia 0 Poikilocytosis 0 Basophilic Stippling 0 Anisocytosis 0 Microcytosis 0 Macrocytosis 0 Spherocytes 0 Sickle Cells 0 Target Cells 0 Tear Drop Cells 0 Ovalocytes 0 Stomatocytes 0 Helmet Cells 0 [place] Bodies 0 [place] Rings 0 [place] Cells 0 Acanthocytes (Spur) 0 Fragmented RBCs 0 Schistocytes 0 PT with INR 21.40 H INR 1.89 H D PTT (Actin FS) Sodium 139 Potassium 4.0 Chloride 105 Carbon Dioxide 21 Anion Gap 13 BUN 23 H Creatinine 0.6 D Creat Clearance w eGFR > 60 POC Glucometer Random Glucose 77 D Calcium 7.6 L Phosphorus 3.3 Magnesium 2.3 Total Bilirubin 1.2 H D AST 51 H ALT 108 H Alkaline Phosphatase 95 Total Protein 5.1 L Albumin 2.4 L Stool Occult Blood 09/19/17 05:35 WBC RBC Hgb Hct MCV MCH MCHC RDW Plt Count MPV Neutrophils % Neutrophils % (Manual) Band Neutrophils % Lymphocytes % Lymphocytes % (Manual) Monocytes % (Manual) Eosinophils % (Manual) Basophils % (Manual) Myelocytes % (Man) Metamyelocytes Hypochromia Toxic Granulation Dohle Bodies Platelet Estimate Polychromasia Poikilocytosis Basophilic Stippling Anisocytosis Microcytosis Macrocytosis Spherocytes Sickle Cells Target Cells Tear Drop Cells Ovalocytes Stomatocytes Helmet Cells [place] Bodies [place] Rings [place] Cells Acanthocytes (Spur) Fragmented RBCs Schistocytes PT with INR INR PTT (Actin FS) 54.0 H Sodium Potassium Chloride Carbon Dioxide Anion Gap BUN Creatinine Creat Clearance w eGFR POC Glucometer Random Glucose Calcium Phosphorus Magnesium Total Bilirubin AST ALT Alkaline Phosphatase Total Protein Albumin Stool Occult Blood ASSESSMENT AND PLAN: 82 yo F with PMHx of HTN, HLD, admitted with shortness of breath, likely LLL CAP with sepsis, with component of acute diastolic heart failure, hypertensive urgency and Possible right acute/subacute frontoparietal CVA. 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 D/c heparin drip once INR therapeutic. BP improved. Continue oral antihypertensives. Patient AAOX3, conversant and appopriate. reconsult palliative to address gaols of care and HCP. Patient has declined further workup for her leucocytosis though states suspects she has CLL and her brother has h/o CLL as well. Declined neurosurgical intervention in the past, is current DNI per records, need to address in detail. PT eval and dispo planning as anticipate d/c over next few days once INR therapeutic and off coumadin of no new events Plan discussed with patient in detail, all questions answered.
--- NOTE | 2017-09-19 17:38 | PN ---
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 Landry recognize me well today. she continues to accrpt little by mouth. some confusion. She says she will accept some food from outside. menu selection. consider short-term care placement.
[2017-09-19] MEDS: SUCRALFATE 1 GM/10 ML UNIT DOSE CUPS PO SCH ×2 (17:58→21:33)
[2017-09-19] MEDS: WARFARIN NA 1 MG TABLET (FP) PO SCH (18:36)
[2017-09-19] MEDS: SODIUM CHLORIDE 1,000 ML IV SCH (18:37)
[2017-09-19] MEDS: NYSTATIN 100,000 UNIT/GM TOPICAL CREAM 15 GM TUBE TP SCH ×2 (21:33)
[2017-09-19] MEDS: ATORVASTATIN CA 80 MG TABLET (FP) PO SCH (21:34)
--- NOTE | 2017-09-19 22:01 | PN ---
Physical Exam: SUBJECTIVE: Patient seen and examined. Pt AAOx3, but reports feeling disconnected and not like herself. Pt denies pain, headache, fever, chills. No events overnight. OBJECTIVE: Vital Signs Period Temp Pulse Resp BP Sys/Espinoza Pulse Ox Last 24 Hr 97.4 F-98.3 F 70-84 18-20 122-158/55-80 96-98 GENERAL: The patient is awake, alert, and fully oriented, in no acute distress. LUNGS: decreased breath sounds at bases, no accessory muscle use. HEART: irregularly irregular, +S1/S2. No murmur. ABDOMEN: Soft, nontender, nondistended. EXTREMITIES: Warm, well-perfused, no edema. NEUROLOGICAL: AAOx3, no facial droop. Pt able to move all extremities. SKIN: Warm, dry, normal turgor, no rashes or lesions noted Laboratory Results - last 24 hr 09/15/17 09/18/17 09/19/17 05:43 22:15 05:35 WBC 39.6 H* RBC 5.01 Hgb 14.3 Hct 44.8 MCV 89.4 MCH 28.6 MCHC 32.0 RDW 12.7 Plt Count 236 MPV 9.3 Neutrophils % No Result Required. Neutrophils % (Manual) 78.2 Band Neutrophils % 0.0 Lymphocytes % No Result Required. Lymphocytes % (Manual) 5.9 L D Monocytes % (Manual) 13 H Eosinophils % (Manual) 1.0 Basophils % (Manual) 0.0 Myelocytes % (Man) 0 Metamyelocytes 1 D Hypochromia 0 Toxic Granulation 0 Dohle Bodies 0 Platelet Estimate Decreased Polychromasia 0 Poikilocytosis 0 Basophilic Stippling 0 Anisocytosis 0 Microcytosis 0 Macrocytosis 0 Spherocytes 0 Sickle Cells 0 Target Cells 0 Tear Drop Cells 0 Ovalocytes 0 Stomatocytes 0 Helmet Cells 0 [place] Bodies 0 [place] Rings 0 [place] Cells 0 Acanthocytes (Spur) 0 Fragmented RBCs 0 Schistocytes 0 PT with INR INR PTT (Actin FS) Sodium Potassium Chloride Carbon Dioxide Anion Gap BUN Creatinine Creat Clearance w eGFR POC Glucometer 180.08884 Random Glucose Calcium Phosphorus Magnesium Total Bilirubin AST ALT Alkaline Phosphatase Total Protein Albumin Stool Occult Blood Positive 09/19/17 09/19/17 09/19/17 05:35 05:35 05:35 WBC RBC Hgb Hct MCV MCH MCHC RDW Plt Count MPV Neutrophils % Neutrophils % (Manual) Band Neutrophils % Lymphocytes % Lymphocytes % (Manual) Monocytes % (Manual) Eosinophils % (Manual) Basophils % (Manual) Myelocytes % (Man) Metamyelocytes Hypochromia Toxic Granulation Dohle Bodies Platelet Estimate Polychromasia Poikilocytosis Basophilic Stippling Anisocytosis Microcytosis Macrocytosis Spherocytes Sickle Cells Target Cells Tear Drop Cells Ovalocytes Stomatocytes Helmet Cells [place] Bodies [place] Rings [place] Cells Acanthocytes (Spur) Fragmented RBCs Schistocytes PT with INR 21.40 H INR 1.89 H D PTT (Actin FS) 54.0 H Sodium 139 Potassium 4.0 Chloride 105 Carbon Dioxide 21 Anion Gap 13 BUN 23 H Creatinine 0.6 D Creat Clearance w eGFR > 60 POC Glucometer Random Glucose 77 D Calcium 7.6 L Phosphorus 3.3 Magnesium 2.3 Total Bilirubin 1.2 H D AST 51 H ALT 108 H Alkaline Phosphatase 95 Total Protein 5.1 L Albumin 2.4 L Stool Occult Blood Active Medications Generic Name Dose Route Start Last Admin Trade Name Freq PRN Reason Stop Dose Admin Amlodipine Besylate 10 mg 09/19/17 10:00 09/19/17 11:05 Norvasc - PO 10 mg DAILY [facility] Administration Aspirin 81 mg 09/19/17 10:00 09/19/17 11:05 Asa - PO 81 mg DAILY [facility] Administration Atorvastatin Calcium 80 mg 09/18/17 22:00 09/19/17 21:34 Lipitor - PO 80 mg HS [facility] Administration Heparin Sodium (Porcine) 1,000 unit 09/18/17 13:19 Heparin - IVPUSH PRN PRN Heparin HEPARIN SOD,PORK IN 0.45% NACL 25,000 units in 500 mls @ 16 mls/hr 09/18/17 13 :19 09/19/17 21:32 Heparin-1/2ns 25,000 Units/500 IVPB 550 units/hr TITR SHAHRAM 11 mls/hr Protocol Administration 800 UNITS/HR Sodium Chloride 1,000 mls @ 42 mls/hr 09/18/17 13:19 09/19/17 18:37 Normal Saline - IV 42 mls/hr ASDIR [facility] Administration Labetalol HCl 10 mg 09/18/17 13:19 Normodyne Injection - IVPUSH Q3H PRN HYPERTENSION Lidocaine/Aluminum/Magnesium/Simeth 5 ml 09/18/17 18:00 09/19/17 17:58 Magic Mouthwash *Sjr Formula* - MM Not Given Q6HPO [facility] Nystatin 1 applic 09/18/17 22:00 09/19/17 21:33 Mycostatin Cream - TP 1 applic BID [facility] Administration Ranitidine HCl 150 mg 09/19/17 10:00 09/19/17 11:05 Zantac - PO 150 mg DAILY [facility] Administration Sucralfate 1 gm 09/18/17 22:00 09/19/17 21:33 Carafate Oral Suspension - PO Not Given BID [facility] Warfarin Sodium 1 mg 09/19/17 18:00 09/19/17 18:36 Coumadin - PO 1 mg DAILY@1800 [facility] Administration ASSESSMENT/PLAN: 82yo F with PMH of htn, hld, presented with sob, found to have Left lung CAP with sepsis, htn urgency and acute frontoparietal CVA. # new onset afib - rate controlled - on heparin drip -> d/c once INR is therapeutic - coumadin bridge -> INR came down to 1.89 today -> Coumadin 1mg daily started # acute hypoxic respiratory failure - likely from multiple sources: bibasilar pna and diastolic CHF - completed course of antibiotics - current O2 saturation wnl, continue O2 prn # Leukocytosis - Pt has declined further w/u despite family hx of brother with CLL. - full sepsis work-up negative # acute metabolic encephalopathy - 2/2 infection/pna and acute CVA - improved - low threshold for repeat imaging # acute Right PICA CVA with local mass effect - neurochecks q4hr - pt has declined neurosurgical intervention in the past # htn urgency - improved - continue Norvasc and Labetalol # hld - continue Lipitor # FEN - Fluids: NS @ 42 ml/hr - Electrolytes: wnl, continue to monitor - Nutrition: soft diet with Ensure Enlive, Magic Cup, and Ensure Compact nutrition supplements # Prophylaxis - DVT ppx with Heparin drip - GI ppx with Zantac and Sucralafate # Status: DNR/DNI Visit type - Emergency Visit Emergency Visit: Yes ED Registration Date: 09/06/17 Care time: The patient presented to the Emergency Department on the above date and was hospitalized for further evaluation of their emergent condition. - New Patient This patient is new to me today: No - Critical Care Critical Care patient: No
[2017-09-20] MEDS: MAG HYDROX/ALH/SMC/DPHA/LIDO 240 ML MOUTHWASH MM SCH ×3 (05:44→18:22)
[2017-09-20 07:22] LABS: BASO % 0.2 % (0-2.0); EOS % 2.8 % (0-4.5); HEMATOCRIT 42.7 % (32.4-45.2); HEMOGLOBIN 13.7 GM/dL (10.7-15.3); LYMPH % 9.3 % (8-40); MCH 28.7 pg (25.7-33.7); MCHC 32.2 g/dl (32.0-36.0); MEAN CELL VOLUME 89.1 fl (80-96); MONO % 19.4 % (3.8-10.2); NEUT % 68.3 % (42.8-82.8); PLATELET COUNT 216 K/MM3 (134-434); RBC 4.79 M/mm3 (3.60-5.2); RDW 13.1 % (11.6-15.6); WHITE BLOOD COUNT 28.5 K/mm3 (4.0-10.0)
[2017-09-20 07:45] LABS: INR 1.59 (0.82-1.09)
[2017-09-20 07:46] LABS: ANION GAP 8 (8-16); BLOOD UREA NITROGEN 16 mg/dL (7-18); CALCIUM 8.1 mg/dL (8.5-10.1); CHLORIDE 105 mmol/L (98-107); CO2 27 mmol/L (21-32); CREATININE 0.6 mg/dL (0.55-1.02); GLUCOSE,RANDOM 104 mg/dL (74-106); MAGNESIUM 2.1 mg/dL (1.8-2.4); PHOSPHOROUS 2.8 mg/dL (2.5-4.9); POTASSIUM 4.2 mmol/L (3.5-5.1); SODIUM 140 mmol/L (136-145)
[2017-09-20 07:48] LABS: ACTIVATED PTT 56.9 SECONDS (26.9-34.4)
[2017-09-20] MEDS ORDERED: PNEUMOC 13-VAL CONJ-DIP CRM/PF 0.5 ML DISP.SYRIN IM ONE (09:56)
[2017-09-20] MEDS: NYSTATIN 100,000 UNIT/GM TOPICAL CREAM 15 GM TUBE TP SCH ×2 (11:14→22:00)
[2017-09-20] MEDS: SUCRALFATE 1 GM/10 ML UNIT DOSE CUPS PO SCH ×2 (11:14→21:29)
[2017-09-20] MEDS: RANITIDINE HCL 150 MG TABLET (FP) PO SCH (11:16)
[2017-09-20] MEDS: ASPIRIN 81 MG CHEWABLE TABLETS PO SCH (11:16)
[2017-09-20] MEDS: amLODIPine BESYLATE 10 MG TABLET (FP) PO SCH (11:16)
--- NOTE | 2017-09-20 12:27 | PN ---
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 (short form) - Note 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: NEUROLOGY FOLLOW-UP: Events reviewed, Patient examined. Discussed with RN and PT. Pt was OOBed with PT but c/o vertigo and unsteadiness. Today INR=1.59 and PTT= 56.9 On Coumadin 1 mg /day Pt found comfortable in bed and reading her menu. Scanning menu from right to left (instead of left to right). No c/o headache, nausea. EXAM: Sl confused but Ox 3. Fluent speech No facial. No drift. Counts fingers all wilhelm. No obvious FTN dystaxia. IMP: Doing well after CVA (s). SUGGEST: Anticoagulate to INR= 2.0-2.5 then D/C Heparin. Cont PT. Berry evaluation and transfer. Thank you very much, Suman Pérez MD
--- NOTE | 2017-09-20 12:40 | PN ---
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, [employer] - Note 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: Doing quite well. Speech seems back to baseline. Eating more. Selected Entries 09/19/17 09/19/17 09/19/17 02:00 06:00 10:00 Breakfast Lunch Supper Temperature 97.6 F 97.4 F L 98 F 09/19/17 09/19/17 09/19/17 14:29 18:00 22:00 Breakfast 25% Lunch 50% Supper 75% Temperature 98.3 F 98.1 F 97.2 F L 09/20/17 09/20/17 02:00 06:00 Breakfast Lunch Supper Temperature 97.4 F L 97.7 F Reports food is sometimes "too hard." Asking for Marinara sauce with extra pepper to add to her food. Menu selection. Place dentures for meals. RD f/u.
--- NOTE | 2017-09-20 13:07 | PN ---
Teaching Attending Note Name of Resident: Tiara Lainez ATTENDING PHYSICIAN STATEMENT Time of evaluation: 10:15 AM I saw and evaluated the patient. I reviewed the resident's note and discussed the case with the resident. I agree with the resident's findings and plan as documented. SUBJECTIVE: Patient seen and examined. On the toilet with loose watery stools, no nausea, vomitting or abdominal pain. Denies any headache, chest pain or palpitations. OBJECTIVE: Vital Signs Period Temp Pulse Resp BP Sys/Espinoza Pulse Ox Last 24 Hr 97.2 F-98.3 F 79-88 16-20 118-140/42-77 98-98 Intake & Output 09/17/17 09/18/17 09/19/17 09/20/17 23:59 23:59 23:59 23:59 Intake Total 894 1919 1272 371 Balance 894 1919 1272 371 Weight 113 lb 5.082 oz 114 lb General: sitting in no acute distress CVS:S1S2 irregular Abdomen: soft, NT, ND, positive bowel sounds neuro AAOX3, unchanged exam. Home Medication List Medication Instructions Recorded Confirmed Type Amlodipine Bes/Olmesartan Med 1 each PO DAILY 09/29/13 09/06/17 History [Moose 5-40 mg Tablet] Furosemide 20 mg PO DAILY 09/06/17 09/06/17 History Active Medications Generic Name Dose Route Start Last Admin Trade Name Freq PRN Reason Stop Dose Admin Amlodipine Besylate 10 mg 09/19/17 10:00 09/20/17 11:16 Norvasc - PO 10 mg DAILY SHAHRAM Administration Aspirin 81 mg 09/19/17 10:00 09/20/17 11:16 Asa - PO 81 mg DAILY SHAHRAM Administration Atorvastatin Calcium 80 mg 09/18/17 22:00 09/19/17 21:34 Lipitor - PO 80 mg HS SHAHRAM Administration Heparin Sodium (Porcine) 1,000 unit 09/18/17 13:19 Heparin - IVPUSH PRN PRN Heparin HEPARIN SOD,PORK IN 0.45% NACL 25,000 units in 500 mls @ 16 mls/hr 09/18/17 13 :19 09/20/17 12:15 Heparin-1/2ns 25,000 Units/500 IVPB 550 units/hr TITR SHAHRAM 11 mls/hr Protocol Titration 800 UNITS/HR Sodium Chloride 1,000 mls @ 42 mls/hr 09/18/17 13:19 09/19/17 18:37 Normal Saline - IV 42 mls/hr ASDIR SHAHRAM Administration Labetalol HCl 10 mg 09/18/17 13:19 Normodyne Injection - IVPUSH Q3H PRN HYPERTENSION Lidocaine/Aluminum/Magnesium/Simeth 5 ml 09/18/17 18:00 09/20/17 12:14 Magic Mouthwash *Sjr Formula* - MM Not Given Q6HPO SHAHRAM Nystatin 1 applic 09/18/17 22:00 09/20/17 11:14 Mycostatin Cream - TP 1 applic BID [facility] Administration Ranitidine HCl 150 mg 09/19/17 10:00 09/20/17 11:16 Zantac - PO 150 mg DAILY [facility] Administration Sucralfate 1 gm 09/18/17 22:00 09/20/17 11:14 Carafate Oral Suspension - PO Not Given BID [facility] Warfarin Sodium 1 mg 09/19/17 18:00 09/19/17 18:36 Coumadin - PO 1 mg DAILY@1800 SHAHRAM Administration Laboratory Results - last 24 hr 09/20/17 09/20/17 09/20/17 06:30 06:30 06:30 WBC 28.5 H RBC 4.79 Hgb 13.7 Hct 42.7 MCV 89.1 MCH 28.7 MCHC 32.2 RDW 13.1 Plt Count 216 MPV 9.0 Neutrophils % 68.3 Lymphocytes % 9.3 D Monocytes % 19.4 H Eosinophils % 2.8 D Basophils % 0.2 PT with INR 18.00 H INR 1.59 H PTT (Actin FS) 56.9 H Sodium 140 Potassium 4.2 Chloride 105 Carbon Dioxide 27 D Anion Gap 8 BUN 16 D Creatinine 0.6 Random Glucose 104 D Calcium 8.1 L Phosphorus 2.8 Magnesium 2.1 Microbiology 09/14/17 15:00 Blood - Peripheral Venous Blood Culture - Final NO GROWTH AFTER 5 DAYS INCUBATION 09/14/17 13:48 Blood - Peripheral Venous Blood Culture - Final NO GROWTH AFTER 5 DAYS INCUBATION 09/18/17 22:15 Stool Clostridium difficile Antigen (TORRES) - Final 09/18/17 22:15 Stool Clostridium difficile Toxin Assay - Final 09/06/17 12:29 Blood - Peripheral Venous Blood Culture - Final NO GROWTH AFTER 5 DAYS INCUBATION 09/06/17 12:29 Blood - Peripheral Venous Blood Culture - Final NO GROWTH AFTER 5 DAYS INCUBATION 09/09/17 09:50 Urine - Urine Clean Catch Legionella Antigen - Final 09/09/17 09:50 Urine - Urine Clean Catch Streptococcus pneumoniae Antigen ( M - Final 09/06/17 15:00 Urine - Urine Clean Catch Urine Culture - Final NO GROWTH OBTAINED 09/06/17 16:00 Nasopharyngeal Swab Influenza Types A,B Antigen (TORRES) - Final 09/06/17 16:00 Nasopharyngeal Swab - Final ASSESSMENT AND PLAN: 82 yo F with PMHx of HTN, HLD, admitted with shortness of breath, likely LLL CAP with sepsis, with component of acute diastolic heart failure, hypertensive urgency and Possible right acute/subacute frontoparietal CVA. 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 -New onset Atrial fibrillation with RVR on 09/10/2017 -Agitation, suspect from mulitiple CVA +/- metabolic toxic encephalopathy from PNA/CHF -Sustained Ventricular tachycardia (9 beats) on 09/08/2017 -Hyperkalemia on admission, ?etiology, ARB related, resolved -Hypertensive urgency, resolved -Hyperlipidemia -Prior heavy smoker -Leucocytosis, patient reports famhx of CLL and has had chronic leucocytosis around 16 at baseline but does not want a bone marrow biopsy or additional work up -coumadin coagulopathy -Occult GI bleed PLan: Coumadin 1 mg daily, INR goal 2-2.5, continue heparin drip till then. FOBT positive, patient with watery diarrhea, Stool C difficile neg, H/h stable with no gross evidence of bleed, ?Occult bleed from supratherapeutic INR. GI consult with Dr. Wren given patient on heparin/coumadin. Monitor h/h for now. Gentle hydration while diarrhea, monitor for ow. BP improved. Continue oral antihypertensives. Patient AAOX3, conversant and appopriate. Palliative care input noted, patient DNR/DNI. Patient has declined further workup for her leucocytosis though states suspects she has CLL and her brother has h/o CLL as well. Declined neurosurgical intervention in the past. PT eval and dispo planning as anticipate d/c over next few days once INR therapeutic and off coumadin of no new events if no gross bleed and no additional GI workup anticipated. Plan discussed with patient in detail, all questions answered.
--- NOTE | 2017-09-20 13:20 | CON.GI ---
Consult Consult Specialty:: GI Reason for Consultation:: hemoccult positive stools - History of Present Illness History of Present Illness: Chart reviewed. Events noted. 82 yo F with PMHx of HTN, HLD, admitted with shortness of breath, likely LLL CAP with sepsis, with component of acute diastolic heart failure, hypertensive urgency and Possible right acute/subacute frontoparietal CVA. Noted to have hemccult positive stools while being anticoagulated with heparing/coumadin. No records of overt GI bleeding, melena while inpatient. No history of GI bleeding. - History Source History Provided By: Patient, Medical Record - Past Medical History ...: No - Alcohol/Substance Use Hx Alcohol Use: No - Smoking History Smoking history: Never smoked Have you smoked in the past 12 months: No If you are a former smoker, when did you quit?: 40yrs Home Medications - Allergies Allergies/Adverse Reactions: Allergies Allergy/AdvReac Type Severity Reaction Status Date / Time No Known Allergies Allergy Verified 09/06/17 11:57 - Home Medications Home Medications: Ambulatory Orders Amlodipine Bes/Olmesartan Med [Moose 5-40 mg Tablet] 1 each PO DAILY 09/29/13 Furosemide 20 mg PO DAILY 09/06/17 Family Disease History - Family Disease History Family History: Unremarkable (non-contributory) Review of Systems Findings/Remarks: please refer to H&P Physical Exam-GI Vital Signs: Vital Signs Temperature 97.7 F 09/20/17 06:00 Pulse Rate 80 09/20/17 06:00 Respiratory Rate 16 09/20/17 06:00 Blood Pressure 118/42 09/20/17 06:00 O2 Sat by Pulse Oximetry (%) 98 09/19/17 22:00 Constitutional: Yes: No Distress, Calm Eyes: Yes: Conjunctiva Clear HENT: Yes: Atraumatic Cardiovascular: Yes: Regular Rate and Rhythm Respiratory: Yes: Regular Gastrointestinal Inspection: No: Ascites, Distention ...Auscultate: Yes: Normoactive Bowel Sounds ...Palpate: Yes: Soft. No: Firm/Rigid, Guarding, Mass, Tenderness, Tenderness, Rebound Neurological: Yes: Alert Labs: CBC, BMP 09/20/17 06:30 09/20/17 06:30 INR, PTT INR 1.59 (0.82-1.09) H 09/20/17 06:30 Laboratory Results - last 24 hr 09/20/17 09/20/17 09/20/17 06:30 06:30 06:30 WBC 28.5 H RBC 4.79 Hgb 13.7 Hct 42.7 MCV 89.1 MCH 28.7 MCHC 32.2 RDW 13.1 Plt Count 216 MPV 9.0 Neutrophils % 68.3 Lymphocytes % 9.3 D Monocytes % 19.4 H Eosinophils % 2.8 D Basophils % 0.2 PT with INR 18.00 H INR 1.59 H PTT (Actin FS) 56.9 H Sodium 140 Potassium 4.2 Chloride 105 Carbon Dioxide 27 D Anion Gap 8 BUN 16 D Creatinine 0.6 Random Glucose 104 D Calcium 8.1 L Phosphorus 2.8 Magnesium 2.1 Assessment/Plan An 82 yof with multiple acute, medical issues was noted to have hemoccult positive stool while supratheraputinc, INR 7, now normalizing. No melena, hematemesis, hematochezia were observed on this admission. Hgb, MCV, RDW, BUN, Cr are normal. A frail, advanced age patient with acute and chronic comorbidities Observe Continue current care Low threshold for therapeutic EGD/Colonoscopy if actively bleeding will monitor Daily CBC, PT/INR until stable
--- NOTE | 2017-09-20 13:22 | PN ---
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 (short form) - Note 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: Overall appears better. No CP or SOB. Intake & Output 09/17/17 09/18/17 09/19/17 09/20/17 23:59 23:59 23:59 23:59 Intake Total 894 1919 1272 371 Balance 894 1919 1272 371 Weight 113 lb 5.082 oz 114 lb Last Vital Signs Temp Pulse Resp BP Pulse Ox 97.7 F 80 16 118/42 98 09/20/17 06:00 09/20/17 06:00 09/20/17 06:00 09/20/17 06:00 09/19/17 22:00 Active Medications Amlodipine Besylate (Norvasc -) 10 mg PO DAILY [facility] Last Admin: 09/20/17 11:16 Dose: 10 mg Aspirin (Asa -) 81 mg PO DAILY [facility] Last Admin: 09/20/17 11:16 Dose: 81 mg Atorvastatin Calcium (Lipitor -) 80 mg PO HS [facility] Last Admin: 09/19/17 21:34 Dose: 80 mg Heparin Sodium (Porcine) (Heparin -) 1,000 unit IVPUSH PRN PRN PRN Reason: Heparin HEPARIN SOD,PORK IN 0.45% NACL (Heparin-1/2ns 25,000 Units/500) 25,000 units in 500 mls @ 16 mls/hr IVPB TITR SHAHRAM; 800 UNITS/HR PRN Reason: Protocol Last Titration: 09/20/17 12:15 Dose: 550 units/hr, 11 mls/hr Sodium Chloride (Normal Saline -) 1,000 mls @ 42 mls/hr IV ASDIR [facility] Last Admin: 09/19/17 18:37 Dose: 42 mls/hr Labetalol HCl (Normodyne Injection -) 10 mg IVPUSH Q3H PRN PRN Reason: HYPERTENSION Lidocaine/Aluminum/Magnesium/Simeth (Magic Mouthwash *Sjr Formula* -) 5 ml MM Q6HPO [facility] Last Admin: 09/20/17 12:14 Dose: Not Given Nystatin (Mycostatin Cream -) 1 applic TP BID [facility] Last Admin: 09/20/17 11:14 Dose: 1 applic Ranitidine HCl (Zantac -) 150 mg PO DAILY [facility] Last Admin: 09/20/17 11:16 Dose: 150 mg Sucralfate (Carafate Oral Suspension -) 1 gm PO BID [facility] Last Admin: 09/20/17 11:14 Dose: Not Given Warfarin Sodium (Coumadin -) 1 mg PO DAILY@1800 [facility] Last Admin: 09/19/17 18:36 Dose: 1 mg Gen: NAD Heart: RRR Lung: decreased breath sounds at the bases Abd: soft, nontender Ext: no edema Neuro: Awake and alert Laboratory Results - last 24 hr 09/20/17 09/20/17 09/20/17 06:30 06:30 06:30 WBC 28.5 H RBC 4.79 Hgb 13.7 Hct 42.7 MCV 89.1 MCH 28.7 MCHC 32.2 RDW 13.1 Plt Count 216 MPV 9.0 Neutrophils % 68.3 Lymphocytes % 9.3 D Monocytes % 19.4 H Eosinophils % 2.8 D Basophils % 0.2 PT with INR 18.00 H INR 1.59 H PTT (Actin FS) 56.9 H Sodium 140 Potassium 4.2 Chloride 105 Carbon Dioxide 27 D Anion Gap 8 BUN 16 D Creatinine 0.6 Random Glucose 104 D Calcium 8.1 L Phosphorus 2.8 Magnesium 2.1 IMP: Altered Mental Status Acute/Subacute CVA Pneumonia Bilateral Pleural Effusions HTN Hyperlipidemia P AFib PLAN; BP meds as ordered AC PO as tolerated Aspiration precautions PT Dr Quintanilla
[2017-09-20] MEDS: HEPARIN SOD,PORK IN 0.45% NACL 25,000 UNITS/500 ML INFUS.BAG IVPB SCH (15:10)
--- NOTE | 2017-09-20 17:57 | PN ---
Physical Exam: SUBJECTIVE: Patient seen and examined. Pt c/o diarrhea, (-) cdiff. AAOx3, lethargic. Pt denies pain, fever, chills. No events overnight. OBJECTIVE: Vital Signs Period Temp Pulse Resp BP Sys/Espinoza Pulse Ox Last 24 Hr 97.2 F-98.1 F 76-88 16-20 111-140/42-77 97-98 GENERAL: The patient is awake, alert, and fully oriented, in no acute distress. LUNGS: decreased breath sounds at bases, no accessory muscle use. HEART: irregularly irregular, +S1/S2. No murmur. ABDOMEN: Soft, nontender, nondistended. EXTREMITIES: Warm, well-perfused, no edema. NEUROLOGICAL: AAOx3, no facial droop. Pt able to move all extremities. SKIN: Warm, dry, normal turgor, no rashes or lesions noted Laboratory Results - last 24 hr 09/20/17 09/20/17 09/20/17 06:30 06:30 06:30 WBC 28.5 H RBC 4.79 Hgb 13.7 Hct 42.7 MCV 89.1 MCH 28.7 MCHC 32.2 RDW 13.1 Plt Count 216 MPV 9.0 Neutrophils % 68.3 Lymphocytes % 9.3 D Monocytes % 19.4 H Eosinophils % 2.8 D Basophils % 0.2 PT with INR 18.00 H INR 1.59 H PTT (Actin FS) 56.9 H Sodium 140 Potassium 4.2 Chloride 105 Carbon Dioxide 27 D Anion Gap 8 BUN 16 D Creatinine 0.6 Random Glucose 104 D Calcium 8.1 L Phosphorus 2.8 Magnesium 2.1 Active Medications Generic Name Dose Route Start Last Admin Trade Name Freq PRN Reason Stop Dose Admin Amlodipine Besylate 10 mg 09/19/17 10:00 09/20/17 11:16 Norvasc - PO 10 mg DAILY SHAHRAM Administration Aspirin 81 mg 09/19/17 10:00 09/20/17 11:16 Asa - PO 81 mg DAILY SHAHRAM Administration Atorvastatin Calcium 80 mg 09/18/17 22:00 09/19/17 21:34 Lipitor - PO 80 mg HS SHAHRAM Administration Heparin Sodium (Porcine) 1,000 unit 09/18/17 13:19 Heparin - IVPUSH PRN PRN Heparin HEPARIN SOD,PORK IN 0.45% NACL 25,000 units in 500 mls @ 16 mls/hr 09/18/17 13 :19 09/20/17 15:10 Heparin-1/2ns 25,000 Units/500 IVPB Not Given TITR [facility] Protocol 800 UNITS/HR Sodium Chloride 1,000 mls @ 42 mls/hr 09/18/17 13:19 09/19/17 18:37 Normal Saline - IV 42 mls/hr ASDIR SHAHRAM Administration Labetalol HCl 10 mg 09/18/17 13:19 Normodyne Injection - IVPUSH Q3H PRN HYPERTENSION Lidocaine/Aluminum/Magnesium/Simeth 5 ml 09/18/17 18:00 09/20/17 12:14 Magic Mouthwash *Sjr Formula* - MM Not Given Q6HPO SHAHRAM Nystatin 1 applic 09/18/17 22:00 09/20/17 11:14 Mycostatin Cream - TP 1 applic BID SHAHRAM Administration Ranitidine HCl 150 mg 09/19/17 10:00 09/20/17 11:16 Zantac - PO 150 mg DAILY SHAHRAM Administration Sucralfate 1 gm 09/18/17 22:00 09/20/17 11:14 Carafate Oral Suspension - PO Not Given BID SHAHRAM Warfarin Sodium 1 mg 09/19/17 18:00 09/19/17 18:36 Coumadin - PO 1 mg DAILY@1800 SHAHRAM Administration ASSESSMENT/PLAN: 82yo F with PMH of htn, hld, presented with sob, found to have Left lung CAP with sepsis, htn urgency and acute frontoparietal CVA. # new onset afib - rate controlled - on heparin drip -> d/c once INR is therapeutic, goal 2.0-2.5 - coumadin bridge -> INR came down to 1.59 today -> continue Coumadin 1mg daily - GI (Dr. Wren) recs appreciated: FOBT (+) (possibly from previous supratherapeutic INR), continue current care. Low threshold for therapeutic EGD /Colonoscopy if actively bleeding. H/H stable, continue to monitor for overt bleeding. # watery diarrhea - cdiff (-) - f/u stool WBC -> if (-) give Lomitil prn - gentle IVFs # acute hypoxic respiratory failure - likely from multiple sources: bibasilar pna and diastolic CHF - completed course of antibiotics - current O2 saturation wnl, continue O2 prn # Leukocytosis - Pt has declined further w/u despite family hx of brother with CLL. - full sepsis work-up negative # acute metabolic encephalopathy - 2/2 infection/pna and acute CVA - improved - low threshold for repeat imaging # acute Right PICA CVA with local mass effect - neurochecks q4hr - pt has declined neurosurgical intervention in the past # htn urgency - improved - continue Norvasc and Labetalol # hld - continue Lipitor # FEN - Fluids: NS @ 42 ml/hr - Electrolytes: wnl, continue to monitor - Nutrition: soft diet with Ensure Enlive, Magic Cup, and Ensure Compact nutrition supplements # Prophylaxis - DVT ppx with Heparin drip - GI ppx with Zantac and Sucralafate # Status: DNR/DNI Visit type - Emergency Visit Emergency Visit: Yes ED Registration Date: 09/06/17 Care time: The patient presented to the Emergency Department on the above date and was hospitalized for further evaluation of their emergent condition. - New Patient This patient is new to me today: No - Critical Care Critical Care patient: No
[2017-09-20] MEDS: SODIUM CHLORIDE 1,000 ML IV SCH ×2 (18:21→21:33)
[2017-09-20] MEDS: WARFARIN NA 1 MG TABLET (FP) PO SCH (18:46)
--- NOTE | 2017-09-20 21:01 | PN ---
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 History of hypertension and hypercholesterolemia and new onset atrial fibrillation. No feels better, conversing, wants to take a bath, no SOB and mentally alert. Active Medications Amlodipine Besylate (Norvasc -) 10 mg PO DAILY [facility] Last Admin: 09/20/17 11:16 Dose: 10 mg Aspirin (Asa -) 81 mg PO DAILY [facility] Last Admin: 09/20/17 11:16 Dose: 81 mg Atorvastatin Calcium (Lipitor -) 80 mg PO HS [facility] Last Admin: 09/19/17 21:34 Dose: 80 mg Heparin Sodium (Porcine) (Heparin -) 1,000 unit IVPUSH PRN PRN PRN Reason: Heparin HEPARIN SOD,PORK IN 0.45% NACL (Heparin-1/2ns 25,000 Units/500) 25,000 units in 500 mls @ 16 mls/hr IVPB TITR SHAHRAM; 800 UNITS/HR PRN Reason: Protocol Last Admin: 09/20/17 15:10 Dose: Not Given Sodium Chloride (Normal Saline -) 1,000 mls @ 42 mls/hr IV ASDIR [facility] Last Admin: 09/20/17 18:21 Dose: Not Given Labetalol HCl (Normodyne Injection -) 10 mg IVPUSH Q3H PRN PRN Reason: HYPERTENSION Lidocaine/Aluminum/Magnesium/Simeth (Magic Mouthwash *Sjr Formula* -) 5 ml MM Q6HPO [facility] Last Admin: 09/20/17 18:22 Dose: Not Given Nystatin (Mycostatin Cream -) 1 applic TP BID [facility] Last Admin: 09/20/17 11:14 Dose: 1 applic Ranitidine HCl (Zantac -) 150 mg PO DAILY [facility] Last Admin: 09/20/17 11:16 Dose: 150 mg Sucralfate (Carafate Oral Suspension -) 1 gm PO BID [facility] Last Admin: 09/20/17 11:14 Dose: Not Given Warfarin Sodium (Coumadin -) 1 mg PO DAILY@1800 [facility] Last Admin: 09/20/17 18:46 Dose: 1 mg 82 year old female is lethargic but alert. No pallor or cyanosis, clubbing or jaundice. Last Vital Signs Temp Pulse Resp BP Pulse Ox 98.2 F 86 irregular. 18 119/59 97 09/20/17 18:00 09/20/17 18:00 09/20/17 18:00 09/20/17 18:00 09/20/17 10:00 NECK: Supple, no JVD, No HJR, carotids are 2+, no bruits are heard. HEART: PMI is in 5th ICS, no heaves or thrills. S1 and S2 are normal. No murmur or gallops were heard. LUNGS: Clear on auscultation ABDOMEN: Soft, nontender, no organomegaly or palpable masses felt. EXTREMITIES: No calf tenderness or dependent edema. [employer]:Alert, oriented in space, no focal deficit. CBC, BMP 09/20/17 06:30 09/20/17 06:30 INR, PTT INR 1.59 (0.82-1.09) H 09/20/17 06:30 A: 1. CVA, embolic. 2. Hypertension, presently normotensive. 3. Rising leukocyte count, etiology needs to be determined. 4. Atrial fibrillation with controlled ventricular response. 5. Hypercholestrolemia 6. S/p CHF. Recommendations: 1. INR is subtherapeutic add additional 1mg.today 2. Bed side PT. 3. F/u CBC 4. F/u INR and PTT Problem List - Problems (1) Sepsis Code(s): A41.9 - SEPSIS, UNSPECIFIED ORGANISM (2) Accelerated hypertension Code(s): I10 - ESSENTIAL (PRIMARY) HYPERTENSION (3) Ventricular premature beats, contractions, or systoles Code(s): I49.3 - VENTRICULAR PREMATURE DEPOLARIZATION (4) Altered mental status Code(s): R41.82 - ALTERED MENTAL STATUS, UNSPECIFIED Qualifiers: Altered mental status type: transient alteration of awareness Qualified Code(s): R40.4 - Transient alteration of awareness (5) Pneumonia Code(s): J18.9 - PNEUMONIA, UNSPECIFIED ORGANISM Qualifiers: Pneumonia type: due to unspecified organism Laterality: left Lung location: lower lobe of lung Qualified Code(s): J18.1 - Lobar pneumonia, unspecified organism (6) Left ventricular failure Code(s): I50.1 - LEFT VENTRICULAR FAILURE, UNSPECIFIED
--- NOTE | 2017-09-20 21:09 | PN ---
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 (short form) - Note 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: Patient seen and examined
[2017-09-20] MEDS ORDERED: WARFARIN NA 1 MG TABLET (FP) PO ONE (21:15)
[2017-09-20] MEDS: ATORVASTATIN CA 80 MG TABLET (FP) PO SCH (21:29)
[2017-09-21] MEDS ORDERED: PROCHLORPERAZINE INJECTION 10 MG/2 ML VIAL IM ONE (04:36)
[2017-09-21] MEDS: MAG HYDROX/ALH/SMC/DPHA/LIDO 240 ML MOUTHWASH MM SCH ×2 (05:11)
[2017-09-21 09:11] LABS: INR 1.96 (0.82-1.09); PROTHROMBIN TIME (PATIENT) 22.2 SEC (9.98-11.88)
[2017-09-21 09:14] LABS: ACTIVATED PTT 54.9 SECONDS (26.9-34.4)
[2017-09-21 09:38] LABS: BASO % 0.2 % (0-2.0); EOS % 3.1 % (0-4.5); HEMATOCRIT 41.1 % (32.4-45.2); HEMOGLOBIN 13.2 GM/dL (10.7-15.3); LYMPH % 8.9 % (8-40); MCH 28.5 pg (25.7-33.7); MEAN CELL VOLUME 88.9 fl (80-96); MEAN PLT VOLUME 9.4 fl (7.5-11.1); MONO % 17.9 % (3.8-10.2); NEUT % 69.9 % (42.8-82.8); PLATELET COUNT 220 K/MM3 (134-434); RBC 4.62 M/mm3 (3.60-5.2); RDW 13.2 % (11.6-15.6)
[2017-09-21 09:43] LABS: ANION GAP 10 (8-16); BLOOD UREA NITROGEN 16 mg/dL (7-18); CALCIUM 7.6 mg/dL (8.5-10.1); CHLORIDE 107 mmol/L (98-107); CO2 22 mmol/L (21-32); CREATININE 0.6 mg/dL (0.55-1.02); GLUCOSE,RANDOM 119 mg/dL (74-106); POTASSIUM 3.5 mmol/L (3.5-5.1); SODIUM 139 mmol/L (136-145)
--- NOTE | 2017-09-21 11:10 | PN ---
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 Illness: No events, Hg normal, no overt signs of bleeding - Current Medication List Current Medications: Active Medications Amlodipine Besylate (Norvasc -) 10 mg PO DAILY [facility] Last Admin: 09/20/17 11:16 Dose: 10 mg Aspirin (Asa -) 81 mg PO DAILY [facility] Last Admin: 09/20/17 11:16 Dose: 81 mg Atorvastatin Calcium (Lipitor -) 80 mg PO HS [facility] Last Admin: 09/20/17 21:29 Dose: 80 mg Heparin Sodium (Porcine) (Heparin -) 1,000 unit IVPUSH PRN PRN PRN Reason: Heparin HEPARIN SOD,PORK IN 0.45% NACL (Heparin-1/2ns 25,000 Units/500) 25,000 units in 500 mls @ 16 mls/hr IVPB TITR SHAHRAM; 800 UNITS/HR PRN Reason: Protocol Last Admin: 09/20/17 15:10 Dose: Not Given Sodium Chloride (Normal Saline -) 1,000 mls @ 42 mls/hr IV ASDIR [facility] Last Admin: 09/20/17 21:33 Dose: 42 mls/hr Labetalol HCl (Normodyne Injection -) 10 mg IVPUSH Q3H PRN PRN Reason: HYPERTENSION Nystatin (Mycostatin Cream -) 1 applic TP BID [facility] Last Admin: 09/20/17 22:00 Dose: Not Given Ranitidine HCl (Zantac -) 150 mg PO DAILY [facility] Last Admin: 09/20/17 11:16 Dose: 150 mg Sucralfate (Carafate Oral Suspension -) 1 gm PO BID [facility] Last Admin: 09/20/17 21:29 Dose: Not Given Warfarin Sodium (Coumadin -) 1 mg PO DAILY@1800 [facility] Last Admin: 09/20/17 18:46 Dose: 1 mg - Objective Vital Signs: Vital Signs Temperature 97.6 F 09/21/17 05:09 Pulse Rate 83 09/21/17 05:09 Respiratory Rate 16 09/21/17 05:09 Blood Pressure 149/65 09/21/17 05:09 O2 Sat by Pulse Oximetry (%) 97 09/20/17 21:00 Constitutional: Yes: No Distress, Calm Gastrointestinal: Yes: Soft. No: Melena, Rectal Bleeding, Tenderness, Vomiting Neurological: Yes: Alert Labs: CBC, BMP 09/21/17 08:04 09/21/17 09:16 INR, PTT INR 1.96 (0.82-1.09) H 09/21/17 08:20 Problem List - Problems (1) Heme positive stool Code(s): R19.5 - OTHER FECAL ABNORMALITIES (2) Supratherapeutic INR Code(s): R79.1 - ABNORMAL COAGULATION PROFILE Assessment/Plan Observe Continue current care Low threshold for therapeutic EGD/Colonoscopy if actively bleeding will monitor Daily CBC, PT/INR until stable
[2017-09-21] MEDS: amLODIPine BESYLATE 10 MG TABLET (FP) PO SCH (11:21)
[2017-09-21] MEDS: ASPIRIN 81 MG CHEWABLE TABLETS PO SCH (11:21)
[2017-09-21] MEDS: RANITIDINE HCL 150 MG TABLET (FP) PO SCH (11:21)
[2017-09-21] MEDS: SUCRALFATE 1 GM/10 ML UNIT DOSE CUPS PO SCH ×2 (11:22→22:22)
[2017-09-21] MEDS: NYSTATIN 100,000 UNIT/GM TOPICAL CREAM 15 GM TUBE TP SCH (11:22)
[2017-09-21] MEDS: HEPARIN SOD,PORK IN 0.45% NACL 25,000 UNITS/500 ML INFUS.BAG IVPB SCH ×2 (11:23→22:15)
--- NOTE | 2017-09-21 12:16 | PN ---
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 Recovering quite well post stroke. No further f/u indicated.
--- NOTE | 2017-09-21 12:25 | PN ---
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 History of hypertension and hypercholesterolemia and new onset atrial fibrillation. Out of bed, alert, had lunch, and feels "much better". Active Medications Generic Name Dose Route Start Last Admin Trade Name Freq PRN Reason Stop Dose Admin Amlodipine Besylate 10 mg 09/19/17 10:00 09/21/17 11:21 Norvasc - PO 10 mg DAILY SHAHRAM Administration Aspirin 81 mg 09/19/17 10:00 09/21/17 11:21 Asa - PO 81 mg DAILY SHAHRAM Administration Atorvastatin Calcium 80 mg 09/18/17 22:00 09/20/17 21:29 Lipitor - PO 80 mg HS SHAHRAM Administration Heparin Sodium (Porcine) 1,000 unit 09/18/17 13:19 Heparin - IVPUSH PRN PRN Heparin HEPARIN SOD,PORK IN 0.45% NACL 25,000 units in 500 mls @ 16 mls/hr 09/18/17 13 :19 09/21/17 11:23 Heparin-1/2ns 25,000 Units/500 IVPB 550 units/hr TITR SHAHRAM 11 mls/hr Protocol Administration 800 UNITS/HR Sodium Chloride 1,000 mls @ 42 mls/hr 09/18/17 13:19 09/20/17 21:33 Normal Saline - IV 42 mls/hr ASDIR SHAHRAM Administration Labetalol HCl 10 mg 09/18/17 13:19 Normodyne Injection - IVPUSH Q3H PRN HYPERTENSION Nystatin 1 applic 09/18/17 22:00 09/21/17 11:22 Mycostatin Cream - TP 1 applic BID SHAHRAM Administration Ranitidine HCl 150 mg 09/19/17 10:00 09/21/17 11:21 Zantac - PO 150 mg DAILY SHAHRAM Administration Sucralfate 1 gm 09/18/17 22:00 09/21/17 11:22 Carafate Oral Suspension - PO Not Given BID SHAHRAM Warfarin Sodium 1 mg 09/19/17 18:00 09/20/17 18:46 Coumadin - PO 1 mg DAILY@1800 SHAHRAM Administration 82 year old female is lethargic but alert. No pallor or cyanosis, clubbing or jaundice. Last Vital Signs Temp Pulse Resp BP Pulse Ox 98 F 86- Irregular 20 125/58 97 09/21/17 10:00 09/21/17 10:00 09/21/17 10:00 09/21/17 10:00 09/20/17 21:00 NECK: Supple, no JVD, No HJR, carotids are 2+, no bruits are heard. HEART: PMI is in 5th ICS, no heaves or thrills. S1 and S2 are normal. No murmur or gallops were heard. LUNGS: Clear on auscultation ABDOMEN: Soft, nontender, no organomegaly or palpable masses felt. EXTREMITIES: No calf tenderness or dependent edema. [employer]:Alert, oriented in space, no focal deficit. CBC, BMP 09/21/17 08:04 09/21/17 09:16 Laboratory Results - last 24 hr 09/21/17 09/21/17 09/21/17 08:04 08:20 09:16 WBC 29.0 H RBC 4.62 Hgb 13.2 Hct 41.1 MCV 88.9 MCH 28.5 MCHC 32.0 RDW 13.2 Plt Count 220 MPV 9.4 Absolute Neuts (auto) 20.2 L Absolute Lymphs (auto) 2.6 L Absolute Monos (auto) 5.2 Absolute Eos (auto) 0.9 Absolute Basos (auto) 0.0 L Neutrophils % 69.9 Lymphocytes % 8.9 Monocytes % 17.9 H Eosinophils % 3.1 Basophils % 0.2 PT with INR 22.20 H INR 1.96 H PTT (Actin FS) 54.9 H Sodium 139 Potassium 3.5 Chloride 107 Carbon Dioxide 22 Anion Gap 10 BUN 16 Creatinine 0.6 Random Glucose 119 H Calcium 7.6 L A: 1. CVA, embolic. 2. Hypertension, presently normotensive. 3. Rising leukocyte count, etiology needs to be determined. 4. Atrial fibrillation with controlled ventricular response. 5. Hypercholestrolemia 6. S/p CHF. Recommendations: 1. INR is subtherapeutic 2mg.today 2. Bed side PT. 3. F/u CBC 4. F/u INR and PTT Documentation prepared by Mercedes Sheehan, acting as a medical billing representative for Kale Quiñnoes MD. Problem List - Problems (1) Sepsis Code(s): A41.9 - SEPSIS, UNSPECIFIED ORGANISM (2) Accelerated hypertension Code(s): I10 - ESSENTIAL (PRIMARY) HYPERTENSION (3) Ventricular premature beats, contractions, or systoles Code(s): I49.3 - VENTRICULAR PREMATURE DEPOLARIZATION (4) Altered mental status Code(s): R41.82 - ALTERED MENTAL STATUS, UNSPECIFIED Qualifiers: Altered mental status type: transient alteration of awareness Qualified Code(s): R40.4 - Transient alteration of awareness (5) Pneumonia Code(s): J18.9 - PNEUMONIA, UNSPECIFIED ORGANISM Qualifiers: Pneumonia type: due to unspecified organism Laterality: left Lung location: lower lobe of lung Qualified Code(s): J18.1 - Lobar pneumonia, unspecified organism (6) Left ventricular failure Code(s): I50.1 - LEFT VENTRICULAR FAILURE, UNSPECIFIED (7) Afib Code(s): I48.91 - UNSPECIFIED ATRIAL FIBRILLATION (8) CVA (cerebral vascular accident) Code(s): I63.9 - CEREBRAL INFARCTION, UNSPECIFIED Qualifiers: CVA mechanism: unspecified Qualified Code(s): I63.9 - Cerebral infarction, unspecified
--- NOTE | 2017-09-21 13:25 | PN ---
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 Illness: pulmonary alert,oob-chair,-resp distres - Current Medication List Current Medications: Active Medications Amlodipine Besylate (Norvasc -) 10 mg PO DAILY [facility] Last Admin: 09/21/17 11:21 Dose: 10 mg Aspirin (Asa -) 81 mg PO DAILY [facility] Last Admin: 09/21/17 11:21 Dose: 81 mg Atorvastatin Calcium (Lipitor -) 80 mg PO HS [facility] Last Admin: 09/20/17 21:29 Dose: 80 mg Heparin Sodium (Porcine) (Heparin -) 1,000 unit IVPUSH PRN PRN PRN Reason: Heparin HEPARIN SOD,PORK IN 0.45% NACL (Heparin-1/2ns 25,000 Units/500) 25,000 units in 500 mls @ 16 mls/hr IVPB TITR SHAHRAM; 800 UNITS/HR PRN Reason: Protocol Last Admin: 09/21/17 11:23 Dose: 550 units/hr, 11 mls/hr Sodium Chloride (Normal Saline -) 1,000 mls @ 42 mls/hr IV ASDIR [facility] Last Admin: 09/20/17 21:33 Dose: 42 mls/hr Labetalol HCl (Normodyne Injection -) 10 mg IVPUSH Q3H PRN PRN Reason: HYPERTENSION Nystatin (Mycostatin Cream -) 1 applic TP BID [facility] Last Admin: 09/21/17 11:22 Dose: 1 applic Ranitidine HCl (Zantac -) 150 mg PO DAILY [facility] Last Admin: 09/21/17 11:21 Dose: 150 mg Sucralfate (Carafate Oral Suspension -) 1 gm PO BID [facility] Last Admin: 09/21/17 11:22 Dose: Not Given Warfarin Sodium (Coumadin -) 1 mg PO DAILY@1800 [facility] Last Admin: 09/20/17 18:46 Dose: 1 mg - Objective Vital Signs: Vital Signs Temperature 98 F 09/21/17 10:00 Pulse Rate 86 09/21/17 10:00 Respiratory Rate 20 09/21/17 10:00 Blood Pressure 125/58 09/21/17 10:00 O2 Sat by Pulse Oximetry (%) 97 09/20/17 21:00 Constitutional: Yes: Well Nourished, Calm Eyes: Yes: WNL HENT: Yes: WNL Neck: Yes: WNL Cardiovascular: Yes: Pulse Irregular, S1, S2 Respiratory: Yes: Rales (few bibasilar crackles) Gastrointestinal: Yes: Normal Bowel Sounds, Soft Extremities: Yes: WNL Edema: Yes Labs: CBC, BMP 09/21/17 08:04 09/21/17 09:16 INR, PTT INR 1.96 (0.82-1.09) H 09/21/17 08:20 Problem List - Problems (1) Afib Code(s): I48.91 - UNSPECIFIED ATRIAL FIBRILLATION (2) (HFpEF) heart failure with preserved ejection fraction Code(s): I50.30 - UNSPECIFIED DIASTOLIC (CONGESTIVE) HEART FAILURE (3) Altered mental status Code(s): R41.82 - ALTERED MENTAL STATUS, UNSPECIFIED Qualifiers: Altered mental status type: transient alteration of awareness Qualified Code(s): R40.4 - Transient alteration of awareness (4) CVA (cerebral vascular accident) Code(s): I63.9 - CEREBRAL INFARCTION, UNSPECIFIED Qualifiers: CVA mechanism: unspecified Qualified Code(s): I63.9 - Cerebral infarction, unspecified Assessment/Plan ASSESSMENT AND PLAN: Altered Mental Status improving Acute/Subacute CVA Cerebral Edema Atrial Fibrillation Pneumonia Bilateral Pleural Effusions HTN Hyperlipidemia - rate controlled - continue anticoagulation, transition to PO - aspiration precautions - DVT prophylaxis - OOB to chair - rehab/PT - chest x-ray DR POOLE
[2017-09-21] MEDS: WARFARIN NA 1 MG TABLET (FP) PO SCH (18:35)
--- NOTE | 2017-09-21 19:17 | PN ---
Teaching Attending Note Name of Resident: Tiara Lainez ATTENDING PHYSICIAN STATEMENT Time of evaluation: 9:50 AM I saw and evaluated the patient. I reviewed the resident's note and discussed the case with the resident. I agree with the resident's findings and plan as documented. SUBJECTIVE: Patient seen and examined. sleeping but arousable, no complaints. OBJECTIVE: Vital Signs Period Temp Pulse Resp BP Sys/Espinoza Pulse Ox Last 24 Hr 97.6 F-98.1 F 79-93 16-20 89-149/58-67 97 Intake & Output 09/18/17 09/19/17 09/20/17 09/21/17 23:59 23:59 23:59 23:59 Intake Total 1919 1272 371 732 Output Total 800 Balance 191 1272 371 -68 Weight 114 lb general: comfortable in bed, no acute distress Abdomen: soft, NT, ND, positive bowel sounds Home Medication List Medication Instructions Recorded Confirmed Type Amlodipine Bes/Olmesartan Med 1 each PO DAILY 09/29/13 09/06/17 History [Moose 5-40 mg Tablet] Furosemide 20 mg PO DAILY 09/06/17 09/06/17 History Active Medications Generic Name Dose Route Start Last Admin Trade Name Freq PRN Reason Stop Dose Admin Amlodipine Besylate 10 mg 09/19/17 10:00 09/21/17 11:21 Norvasc - PO 10 mg DAILY SHAHRAM Administration Aspirin 81 mg 09/19/17 10:00 09/21/17 11:21 Asa - PO 81 mg DAILY SHAHRAM Administration Atorvastatin Calcium 80 mg 09/18/17 22:00 09/20/17 21:29 Lipitor - PO 80 mg HS SHAHRAM Administration Heparin Sodium (Porcine) 1,000 unit 09/18/17 13:19 Heparin - IVPUSH PRN PRN Heparin HEPARIN SOD,PORK IN 0.45% NACL 25,000 units in 500 mls @ 16 mls/hr 09/18/17 13 :19 09/21/17 11:23 Heparin-1/2ns 25,000 Units/500 IVPB 550 units/hr TITR SHAHRAM 11 mls/hr Protocol Administration 800 UNITS/HR Sodium Chloride 1,000 mls @ 42 mls/hr 09/18/17 13:19 09/20/17 21:33 Normal Saline - IV 42 mls/hr ASDIR SHAHRAM Administration Labetalol HCl 10 mg 09/18/17 13:19 Normodyne Injection - IVPUSH Q3H PRN HYPERTENSION Nystatin 1 applic 09/18/17 22:00 09/21/17 11:22 Mycostatin Cream - TP 1 applic BID [facility] Administration Ranitidine HCl 150 mg 09/19/17 10:00 09/21/17 11:21 Zantac - PO 150 mg DAILY SHAHRAM Administration Sucralfate 1 gm 09/18/17 22:00 09/21/17 11:22 Carafate Oral Suspension - PO Not Given BID [facility] Warfarin Sodium 1 mg 09/19/17 18:00 09/21/17 18:35 Coumadin - PO 1 mg DAILY@1800 SHAHRAM Administration Laboratory Results - last 24 hr 09/21/17 09/21/17 09/21/17 08:04 08:20 09:16 WBC 29.0 H RBC 4.62 Hgb 13.2 Hct 41.1 MCV 88.9 MCH 28.5 MCHC 32.0 RDW 13.2 Plt Count 220 MPV 9.4 Absolute Neuts (auto) 20.2 L Absolute Lymphs (auto) 2.6 L Absolute Monos (auto) 5.2 Absolute Eos (auto) 0.9 Absolute Basos (auto) 0.0 L Neutrophils % 69.9 Lymphocytes % 8.9 Monocytes % 17.9 H Eosinophils % 3.1 Basophils % 0.2 PT with INR 22.20 H INR 1.96 H PTT (Actin FS) 54.9 H Sodium 139 Potassium 3.5 Chloride 107 Carbon Dioxide 22 Anion Gap 10 BUN 16 Creatinine 0.6 Random Glucose 119 H Calcium 7.6 L Microbiology 09/14/17 15:00 Blood - Peripheral Venous Blood Culture - Final NO GROWTH AFTER 5 DAYS INCUBATION 09/14/17 13:48 Blood - Peripheral Venous Blood Culture - Final NO GROWTH AFTER 5 DAYS INCUBATION 09/18/17 22:15 Stool Clostridium difficile Antigen (TORRES) - Final 09/18/17 22:15 Stool Clostridium difficile Toxin Assay - Final 09/06/17 12:29 Blood - Peripheral Venous Blood Culture - Final NO GROWTH AFTER 5 DAYS INCUBATION 09/06/17 12:29 Blood - Peripheral Venous Blood Culture - Final NO GROWTH AFTER 5 DAYS INCUBATION 09/09/17 09:50 Urine - Urine Clean Catch Legionella Antigen - Final 09/09/17 09:50 Urine - Urine Clean Catch Streptococcus pneumoniae Antigen ( M - Final 09/06/17 15:00 Urine - Urine Clean Catch Urine Culture - Final NO GROWTH OBTAINED 09/06/17 16:00 Nasopharyngeal Swab Influenza Types A,B Antigen (TORRES) - Final 09/06/17 16:00 Nasopharyngeal Swab - Final ASSESSMENT AND PLAN: 82 yo F with PMHx of HTN, HLD, admitted with shortness of breath, likely LLL CAP with sepsis, with component of acute diastolic heart failure, hypertensive urgency and Possible right acute/subacute frontoparietal CVA. 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 -New onset Atrial fibrillation with RVR on 09/10/2017 -Agitation, suspect from mulitiple CVA +/- metabolic toxic encephalopathy from PNA/CHF -Sustained Ventricular tachycardia (9 beats) on 09/08/2017 -Hyperkalemia on admission, ?etiology, ARB related, resolved -Hypertensive urgency, resolved -Hyperlipidemia -Prior heavy smoker -Leucocytosis, patient reports famhx of CLL and has had chronic leucocytosis around 16 at baseline but does not want a bone marrow biopsy or additional work up -coumadin coagulopathy -Occult GI bleed PLan: Coumadin 1 mg daily, INR goal 2-2.5, continue heparin drip till then. FOBT positive, patient with watery diarrhea, Stool C difficile neg, H/h stable with no gross evidence of bleed, ?Occult bleed from supratherapeutic INR. GI consult with Dr. Wren given patient on heparin/coumadin noted, no plans for intervention. Monitor h/h for now. Gentle hydration while diarrhea, monitor for now. BP improved. Continue oral antihypertensives. Patient AAOX3, conversant and appopriate. Palliative care input noted, patient DNR/DNI. Patient has declined further workup for her leucocytosis though states suspects she has CLL and her brother has h/o CLL as well. Declined neurosurgical intervention in the past. PT eval and dispo planning as anticipate d/c over next 24-48 hours once INR therapeutic and off coumadin and no new events. Plan discussed with patient in detail, all questions answered.
--- NOTE | 2017-09-21 22:15 | PN ---
Physical Exam: SUBJECTIVE: Patient seen and examined. Pt sleeping but arousable, oriented x 3. No fever, chills. OBJECTIVE: Vital Signs Period Temp Pulse Resp BP Sys/Espinoza Pulse Ox Last 24 Hr 97.6 F-98 F 79-93 16-20 89-149/58-67 GENERAL: The patient is fully oriented, in no acute distress. LUNGS: decreased breath sounds at bases, no accessory muscle use. HEART: irregularly irregular, +S1/S2. No murmur. ABDOMEN: Soft, nontender, nondistended, normoactive bowel sounds. EXTREMITIES: Warm, well-perfused, no edema. NEUROLOGICAL: AAOx3, no facial droop. Pt able to move all extremities. SKIN: Warm, dry, normal turgor, no rashes or lesions noted Laboratory Results - last 24 hr 09/21/17 09/21/17 09/21/17 08:04 08:20 09:16 WBC 29.0 H RBC 4.62 Hgb 13.2 Hct 41.1 MCV 88.9 MCH 28.5 MCHC 32.0 RDW 13.2 Plt Count 220 MPV 9.4 Absolute Neuts (auto) 20.2 L Absolute Lymphs (auto) 2.6 L Absolute Monos (auto) 5.2 Absolute Eos (auto) 0.9 Absolute Basos (auto) 0.0 L Neutrophils % 69.9 Lymphocytes % 8.9 Monocytes % 17.9 H Eosinophils % 3.1 Basophils % 0.2 PT with INR 22.20 H INR 1.96 H PTT (Actin FS) 54.9 H Sodium 139 Potassium 3.5 Chloride 107 Carbon Dioxide 22 Anion Gap 10 BUN 16 Creatinine 0.6 Random Glucose 119 H Calcium 7.6 L Active Medications Generic Name Dose Route Start Last Admin Trade Name Freq PRN Reason Stop Dose Admin Amlodipine Besylate 10 mg 09/19/17 10:00 09/21/17 11:21 Norvasc - PO 10 mg DAILY SHAHRAM Administration Aspirin 81 mg 09/19/17 10:00 09/21/17 11:21 Asa - PO 81 mg DAILY SHAHRAM Administration Atorvastatin Calcium 80 mg 09/18/17 22:00 09/20/17 21:29 Lipitor - PO 80 mg HS SHAHRAM Administration Heparin Sodium (Porcine) 1,000 unit 09/18/17 13:19 Heparin - IVPUSH PRN PRN Heparin HEPARIN SOD,PORK IN 0.45% NACL 25,000 units in 500 mls @ 16 mls/hr 09/18/17 13 :19 09/21/17 11:23 Heparin-1/2ns 25,000 Units/500 IVPB 550 units/hr TITR SHAHRAM 11 mls/hr Protocol Administration 800 UNITS/HR Sodium Chloride 1,000 mls @ 42 mls/hr 09/18/17 13:19 09/20/17 21:33 Normal Saline - IV 42 mls/hr ASDIR SHAHRAM Administration Labetalol HCl 10 mg 09/18/17 13:19 Normodyne Injection - IVPUSH Q3H PRN HYPERTENSION Nystatin 1 applic 09/18/17 22:00 09/21/17 11:22 Mycostatin Cream - TP 1 applic BID SHAHRAM Administration Ranitidine HCl 150 mg 09/19/17 10:00 09/21/17 11:21 Zantac - PO 150 mg DAILY SHAHRAM Administration Sucralfate 1 gm 09/18/17 22:00 09/21/17 11:22 Carafate Oral Suspension - PO Not Given BID [facility] Warfarin Sodium 1 mg 09/19/17 18:00 09/21/17 18:35 Coumadin - PO 1 mg DAILY@1800 SHAHRAM Administration ASSESSMENT/PLAN: 82yo F with PMH of htn, hld, presented with sob, found to have Left lung CAP with sepsis, htn urgency and acute frontoparietal CVA. # new onset afib - rate controlled - on heparin drip -> d/c once INR is therapeutic, goal 2.0-2.5 - coumadin bridge -> INR came up to 1.96 today -> continue Coumadin 1mg daily - GI (Dr. Wren) recs appreciated: FOBT (+) (possibly from previous supratherapeutic INR), continue current care. Low threshold for therapeutic EGD /Colonoscopy if actively bleeding. H/H stable, continue to monitor for overt bleeding. # watery diarrhea - resolved # acute hypoxic respiratory failure - likely from multiple sources: bibasilar pna and diastolic CHF - completed course of antibiotics - current O2 saturation wnl, continue O2 prn # Leukocytosis - Pt has declined further w/u despite family hx of brother with CLL. - full sepsis work-up negative # acute metabolic encephalopathy - 2/2 infection/pna and acute CVA - improved # acute Right PICA CVA with local mass effect - neurochecks q4hr - pt has declined neurosurgical intervention in the past # htn urgency - improved - continue Norvasc and Labetalol # hld - continue Lipitor # FEN - Fluids: NS @ 42 ml/hr - Electrolytes: wnl, continue to monitor - Nutrition: soft diet with Ensure Enlive, Magic Cup, and Ensure Compact nutrition supplements # Prophylaxis - DVT ppx with Heparin drip - GI ppx with Zantac and Sucralafate # Status: DNR/DNI Visit type - Emergency Visit Emergency Visit: Yes ED Registration Date: 09/06/17 Care time: The patient presented to the Emergency Department on the above date and was hospitalized for further evaluation of their emergent condition. - New Patient This patient is new to me today: No - Critical Care Critical Care patient: No
[2017-09-21] MEDS: ATORVASTATIN CA 80 MG TABLET (FP) PO SCH (22:22)
[2017-09-21] MEDS: SODIUM CHLORIDE 1,000 ML IV SCH (22:22)
[2017-09-22] MEDS: NYSTATIN 100,000 UNIT/GM TOPICAL CREAM 15 GM TUBE TP SCH ×4 (00:29→21:28)
[2017-09-22 09:17] LABS: HEMATOCRIT 39.7 % (32.4-45.2); NEUT % 70.1 % (42.8-82.8)
[2017-09-22 09:24] LABS: BASO % 0.2 % (0-2.0); EOS % 2.9 % (0-4.5); HEMOGLOBIN 12.9 GM/dL (10.7-15.3); MCH 28.8 pg (25.7-33.7); MCHC 32.5 g/dl (32.0-36.0); MEAN CELL VOLUME 88.4 fl (80-96); MONO % 16.8 % (3.8-10.2); PLATELET COUNT 231 K/MM3 (134-434); RBC 4.49 M/mm3 (3.60-5.2); RDW 13.4 % (11.6-15.6); WHITE BLOOD COUNT 25.6 K/mm3 (4.0-10.0)
[2017-09-22 09:27] LABS: INR 2.63 (0.82-1.09); PROTHROMBIN TIME (PATIENT) 29.7 SEC (9.98-11.88)
[2017-09-22] MEDS ORDERED: PT OWN MED DRAWER 7, Y5N ONE (09:58)
[2017-09-22] MEDS: SUCRALFATE 1 GM/10 ML UNIT DOSE CUPS PO SCH ×2 (09:59→21:28)
[2017-09-22] MEDS: ASPIRIN 81 MG CHEWABLE TABLETS PO SCH (10:00)
[2017-09-22] MEDS: RANITIDINE HCL 150 MG TABLET (FP) PO SCH (10:00)
[2017-09-22] MEDS: amLODIPine BESYLATE 10 MG TABLET (FP) PO SCH (10:00)
--- NOTE | 2017-09-22 10:45 | PN ---
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, Physician - Current Medication List Current Medications: Active Medications Amlodipine Besylate (Norvasc -) 10 mg PO DAILY [facility] Last Admin: 09/22/17 10:00 Dose: 10 mg Aspirin (Asa -) 81 mg PO DAILY [facility] Last Admin: 09/22/17 10:00 Dose: 81 mg Atorvastatin Calcium (Lipitor -) 80 mg PO HS [facility] Last Admin: 09/21/17 22:22 Dose: 80 mg Heparin Sodium (Porcine) (Heparin -) 1,000 unit IVPUSH PRN PRN PRN Reason: Heparin HEPARIN SOD,PORK IN 0.45% NACL (Heparin-1/2ns 25,000 Units/500) 25,000 units in 500 mls @ 16 mls/hr IVPB TITR SHAHRAM; 800 UNITS/HR PRN Reason: Protocol Last Admin: 09/21/17 22:15 Dose: Not Given Sodium Chloride (Normal Saline -) 1,000 mls @ 42 mls/hr IV ASDIR [facility] Last Admin: 09/21/17 22:22 Dose: 42 mls/hr Labetalol HCl (Normodyne Injection -) 10 mg IVPUSH Q3H PRN PRN Reason: HYPERTENSION Nystatin (Mycostatin Cream -) 1 applic TP BID [facility] Last Admin: 09/22/17 06:07 Dose: 1 applic Ranitidine HCl (Zantac -) 150 mg PO DAILY [facility] Last Admin: 09/22/17 10:00 Dose: 150 mg Sucralfate (Carafate Oral Suspension -) 1 gm PO BID [facility] Last Admin: 09/22/17 09:59 Dose: Not Given Warfarin Sodium (Coumadin -) 1 mg PO DAILY@1800 [facility] Last Admin: 09/21/17 18:35 Dose: 1 mg - Objective Vital Signs: Vital Signs Temperature 97.8 F 09/22/17 06:06 Pulse Rate 76 09/22/17 06:06 Respiratory Rate 16 09/22/17 06:06 Blood Pressure 122/57 09/22/17 06:06 O2 Sat by Pulse Oximetry (%) 97 09/20/17 21:00 Labs: CBC, BMP 09/22/17 08:50 09/21/17 09:16 INR, PTT INR 2.63 (0.82-1.09) H D 09/22/17 08:50 Assessment/Plan CVA, embolic/ Afib: -on warfarin, cont same mgmt plan -INR therapeutic--dose prn for INR 2-3 -HR controlled without AVN meds on board Hypertension, presently normotensive. Rising leukocyte count, etiology needs to be determined. S/p CHF: -cxr 09/19 no congestion -volume status PNA: -per hospitalist guaiac positive stools: -GI following -H/H normal, though drifting down slowly -cont AC for now, with close f/u of cbc's
--- NOTE | 2017-09-22 13:04 | PN ---
Teaching Attending Note Name of Resident: Tiara Lainez ATTENDING PHYSICIAN STATEMENT Time of evlauaiton: 8:00 AM I saw and evaluated the patient. I reviewed the resident's note and discussed the case with the resident. I agree with the resident's findings and plan as documented. SUBJECTIVE: patient seen and examined. Doing well, no new complaints. OBJECTIVE: Vital Signs Period Temp Pulse Resp BP Sys/Espinoza Pulse Ox Last 24 Hr 97.8 F-98.1 F 76-93 16-20 89-141/57-82 Intake & Output 09/19/17 09/20/17 09/21/17 09/22/17 23:59 23:59 23:59 23:59 Intake Total 0399 788 1765 782 Output Total 800 Balance 1272 371 668 782 General: sitting in bed in no acute distress Abdomen: soft, NT, ND, positive bowel sounds extremities: no edema NeuroAAOx3, unchanged exam Home Medication List Medication Instructions Recorded Confirmed Type Amlodipine Bes/Olmesartan Med 1 each PO DAILY 09/29/13 09/06/17 History [Moose 5-40 mg Tablet] Active Medications Generic Name Dose Route Start Last Admin Trade Name Freq PRN Reason Stop Dose Admin Amlodipine Besylate 10 mg 09/19/17 10:00 09/22/17 10:00 Norvasc - PO 10 mg DAILY SHAHRAM Administration Aspirin 81 mg 09/19/17 10:00 09/22/17 10:00 Asa - PO 81 mg DAILY SHAHRAM Administration Atorvastatin Calcium 80 mg 09/18/17 22:00 09/21/17 22:22 Lipitor - PO 80 mg HS SHAHRAM Administration Sodium Chloride 1,000 mls @ 42 mls/hr 09/18/17 13:19 09/21/17 22:22 Normal Saline - IV 42 mls/hr ASDIR SHAHRAM Administration Labetalol HCl 10 mg 09/18/17 13:19 Normodyne Injection - IVPUSH Q3H PRN HYPERTENSION Nystatin 1 applic 09/18/17 22:00 09/22/17 06:07 Mycostatin Cream - TP 1 applic BID SHAHRAM Administration Ranitidine HCl 150 mg 09/19/17 10:00 09/22/17 10:00 Zantac - PO 150 mg DAILY SHAHRAM Administration Sucralfate 1 gm 09/18/17 22:00 09/22/17 09:59 Carafate Oral Suspension - PO Not Given BID [facility] Warfarin Sodium 1 mg 09/19/17 18:00 09/21/17 18:35 Coumadin - PO 1 mg DAILY@1800 [facility] Administration Laboratory Results - last 24 hr 09/22/17 09/22/17 09/22/17 08:50 08:50 08:50 WBC 25.6 H RBC 4.49 Hgb 12.9 Hct 39.7 MCV 88.4 MCH 28.8 MCHC 32.5 RDW 13.4 Plt Count 231 MPV 9.0 Neutrophils % 70.1 Lymphocytes % 10.0 Monocytes % 16.8 H Eosinophils % 2.9 Basophils % 0.2 PT with INR 29.70 H INR 2.63 H D PTT (Actin FS) 72.1 H D Microbiology 09/14/17 15:00 Blood - Peripheral Venous Blood Culture - Final NO GROWTH AFTER 5 DAYS INCUBATION 09/14/17 13:48 Blood - Peripheral Venous Blood Culture - Final NO GROWTH AFTER 5 DAYS INCUBATION 09/18/17 22:15 Stool Clostridium difficile Antigen (TORRES) - Final 09/18/17 22:15 Stool Clostridium difficile Toxin Assay - Final 09/06/17 12:29 Blood - Peripheral Venous Blood Culture - Final NO GROWTH AFTER 5 DAYS INCUBATION 09/06/17 12:29 Blood - Peripheral Venous Blood Culture - Final NO GROWTH AFTER 5 DAYS INCUBATION 09/09/17 09:50 Urine - Urine Clean Catch Legionella Antigen - Final 09/09/17 09:50 Urine - Urine Clean Catch Streptococcus pneumoniae Antigen ( M - Final 09/06/17 15:00 Urine - Urine Clean Catch Urine Culture - Final NO GROWTH OBTAINED 09/06/17 16:00 Nasopharyngeal Swab Influenza Types A,B Antigen (TORRES) - Final 09/06/17 16:00 Nasopharyngeal Swab - Final ASSESSMENT AND PLAN: 82 yo F with PMHx of HTN, HLD, admitted with shortness of breath, likely LLL CAP with sepsis, with component of acute diastolic heart failure, hypertensive urgency and Possible right acute/subacute frontoparietal CVA. 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 FOBT positive, patient with watery diarrhea, Stool C difficile neg, H/h slowly drifting with no gross evidence of bleed, ?Occult bleed from supratherapeutic INR. GI consult with Dr. Wren given patient on heparin/coumadin noted, no plans for intervention. Monitor h/h for now. Diarrhea improved. Stool C difficile neg. D/c IVF. BP improved. Continue oral antihypertensives. Patient AAOX3, conversant and appopriate. Palliative care input noted, patient DNR/DNI. Patient has declined further workup for her leucocytosis though states suspects she has CLL and her brother has h/o CLL as well. Declined neurosurgical intervention in the past. PT eval noted, unable to go to [place] today, will aim for AM discharge if h/h stable, INR therapeutic and no new concerns Plan discussed with patient in detail, all questions answered
--- NOTE | 2017-09-22 14:30 | PN ---
Physical Exam: SUBJECTIVE: Patient seen and examined. Pt AAOx3 today, inquiring about her strokes (which vessels were affected, extent of damage, prognosis). No fever, chills. No events overnight. OBJECTIVE: Vital Signs Period Temp Pulse Resp BP Sys/Espinoza Pulse Ox Last 24 Hr 97.7 F-98.1 F 76-93 16-20 89-141/57-82 96 GENERAL: AAOx3, NAD. LUNGS: CTAB, no accessory muscle use. HEART: irregularly irregular, +S1/S2. No murmur. ABDOMEN: Soft, nontender, nondistended. EXTREMITIES: Warm, well-perfused, no edema. NEUROLOGICAL: No facial droop. Pt able to move all extremities. SKIN: Warm, dry, normal turgor, no rashes or lesions noted Laboratory Results - last 24 hr 09/22/17 09/22/17 09/22/17 08:50 08:50 08:50 WBC 25.6 H RBC 4.49 Hgb 12.9 Hct 39.7 MCV 88.4 MCH 28.8 MCHC 32.5 RDW 13.4 Plt Count 231 MPV 9.0 Neutrophils % 70.1 Lymphocytes % 10.0 Monocytes % 16.8 H Eosinophils % 2.9 Basophils % 0.2 PT with INR 29.70 H INR 2.63 H D PTT (Actin FS) 72.1 H D Active Medications Generic Name Dose Route Start Last Admin Trade Name Freq PRN Reason Stop Dose Admin Amlodipine Besylate 10 mg 09/19/17 10:00 09/22/17 10:00 Norvasc - PO 10 mg DAILY SHAHRAM Administration Aspirin 81 mg 09/19/17 10:00 09/22/17 10:00 Asa - PO 81 mg DAILY SHAHRAM Administration Atorvastatin Calcium 80 mg 09/18/17 22:00 09/21/17 22:22 Lipitor - PO 80 mg HS SHAHRAM Administration Labetalol HCl 10 mg 09/18/17 13:19 Normodyne Injection - IVPUSH Q3H PRN HYPERTENSION Nystatin 1 applic 09/18/17 22:00 09/22/17 06:07 Mycostatin Cream - TP 1 applic BID SHAHRAM Administration Ranitidine HCl 150 mg 09/19/17 10:00 09/22/17 10:00 Zantac - PO 150 mg DAILY SHAHRAM Administration Sucralfate 1 gm 09/18/17 22:00 09/22/17 09:59 Carafate Oral Suspension - PO Not Given BID [facility] Warfarin Sodium 1 mg 09/19/17 18:00 09/21/17 18:35 Coumadin - PO 1 mg DAILY@1800 [facility] Administration ASSESSMENT/PLAN: 82yo F with PMH of htn, hld, presented with sob, found to have Left lung CAP with sepsis, htn urgency and acute frontoparietal CVA. # new onset afib - rate controlled - coumadin bridge -> INR therapeutic today, 2.63 -> continue Coumadin 1mg daily - heparin drip D/Luis Armando - GI (Dr. Wren) recs appreciated: FOBT (+) (possibly from previous supratherapeutic INR), continue current care. Low threshold for therapeutic EGD /Colonoscopy if actively bleeding. H/H stable, continue to monitor for overt bleeding. # acute hypoxic respiratory failure - likely from multiple sources: bibasilar pna and diastolic CHF - completed course of antibiotics - current O2 saturation wnl, continue O2 prn # Leukocytosis - Pt has declined further w/u despite family hx of brother with CLL. - full sepsis work-up negative # acute metabolic encephalopathy - 2/2 infection/pna and acute CVA - improved # acute Right PICA CVA with local mass effect - neurochecks q4hr - pt has declined neurosurgical intervention in the past # htn urgency - improved - continue Norvasc and Labetalol # hld - continue Lipitor # FEN - Fluids: po - Electrolytes: wnl - Nutrition: soft diet with Ensure Enlive, Magic Cup, and Ensure Compact nutrition supplements # Prophylaxis - DVT ppx with Coumadin - GI ppx with Zantac and Sucralafate # Status: DNR/DNI Visit type - Emergency Visit Emergency Visit: Yes ED Registration Date: 09/06/17 Care time: The patient presented to the Emergency Department on the above date and was hospitalized for further evaluation of their emergent condition. - New Patient This patient is new to me today: No - Critical Care Critical Care patient: No
--- NOTE | 2017-09-22 16:44 | PN ---
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 History of hypertension and hypercholesterolemia and new onset atrial fibrillation. Patient denies any symtoms, she is conversing without difficulty, appetite has significantly improved. Active Medications Generic Name Dose Route Start Last Admin Trade Name Freq PRN Reason Stop Dose Admin Amlodipine Besylate 10 mg 09/19/17 10:00 09/22/17 10:00 Norvasc - PO 10 mg DAILY SHAHRAM Administration Aspirin 81 mg 09/19/17 10:00 09/22/17 10:00 Asa - PO 81 mg DAILY SHAHRAM Administration Atorvastatin Calcium 80 mg 09/18/17 22:00 09/21/17 22:22 Lipitor - PO 80 mg HS SHAHRAM Administration Labetalol HCl 10 mg 09/18/17 13:19 Normodyne Injection - IVPUSH Q3H PRN HYPERTENSION Nystatin 1 applic 09/18/17 22:00 09/22/17 06:07 Mycostatin Cream - TP 1 applic BID SHAHRAM Administration Ranitidine HCl 150 mg 09/19/17 10:00 09/22/17 10:00 Zantac - PO 150 mg DAILY SHAHRAM Administration Sucralfate 1 gm 09/18/17 22:00 09/22/17 09:59 Carafate Oral Suspension - PO Not Given BID SHAHRAM Warfarin Sodium 1 mg 09/19/17 18:00 09/21/17 18:35 Coumadin - PO 1 mg DAILY@1800 SHAHRAM Administration 82 year old female is lethargic but alert. No pallor or cyanosis, clubbing or jaundice. Last Vital Signs Temp Pulse Resp BP Pulse Ox 97.7 F 85 18 114/59 96 09/22/17 13:27 09/22/17 13:27 09/22/17 13:27 09/22/17 13:27 09/22/17 10:00 Intake & Output 09/19/17 09/20/17 09/21/17 09/22/17 23:59 23:59 23:59 23:59 Intake Total 4681 007 6256 782 Output Total 800 Balance 1272 371 668 782 NECK: Supple, no JVD, No HJR, carotids are 2+, no bruits are heard. HEART: PMI is in 5th ICS, no heaves or thrills. S1 and S2 are normal. No murmur or gallops were heard. LUNGS: Clear on auscultation ABDOMEN: Soft, nontender, no organomegaly or palpable masses felt. EXTREMITIES: No calf tenderness or dependent edema. AUTHORIZATION COORDINATOR:Alert, oriented in space and time, no gross focal deficit. CBC, BMP 09/22/17 08:50 09/21/17 09:16 INR, PTT INR 2.63 (0.82-1.09) H D 09/22/17 08:50 A: 1. CVA, embolic, without deficit 2. Hypertension, presently normotensive. 3. Dreasing leukocytosis 4. Atrial fibrillation with controlled ventricular response. 5. Hypercholestrolemia 6. S/p CHF. Recommendations: 1. Anticoagulation in progress. 2. Bed side PT. 3. F/u CBC 4. Will require inpatient rehab. Problem List - Problems (1) Sepsis Code(s): A41.9 - SEPSIS, UNSPECIFIED ORGANISM (2) Accelerated hypertension Code(s): I10 - ESSENTIAL (PRIMARY) HYPERTENSION (3) Ventricular premature beats, contractions, or systoles Code(s): I49.3 - VENTRICULAR PREMATURE DEPOLARIZATION (4) Altered mental status Code(s): R41.82 - ALTERED MENTAL STATUS, UNSPECIFIED Qualifiers: Altered mental status type: transient alteration of awareness Qualified Code(s): R40.4 - Transient alteration of awareness (5) Pneumonia Code(s): J18.9 - PNEUMONIA, UNSPECIFIED ORGANISM Qualifiers: Pneumonia type: due to unspecified organism Laterality: left Lung location: lower lobe of lung Qualified Code(s): J18.1 - Lobar pneumonia, unspecified organism (6) Left ventricular failure Code(s): I50.1 - LEFT VENTRICULAR FAILURE, UNSPECIFIED (7) Afib Code(s): I48.91 - UNSPECIFIED ATRIAL FIBRILLATION (8) CVA (cerebral vascular accident) Code(s): I63.9 - CEREBRAL INFARCTION, UNSPECIFIED Qualifiers: CVA mechanism: unspecified Qualified Code(s): I63.9 - Cerebral infarction, unspecified
[2017-09-22] MEDS: WARFARIN NA 1 MG TABLET (FP) PO SCH (17:22)
[2017-09-22] MEDS: ATORVASTATIN CA 80 MG TABLET (FP) PO SCH (21:28)
[2017-09-23 08:56] LABS: HEMATOCRIT 44.6 % (32.4-45.2); HEMOGLOBIN 14.3 GM/dL (10.7-15.3); MCH 28.8 pg (25.7-33.7); MCHC 32.1 g/dl (32.0-36.0); MEAN CELL VOLUME 89.6 fl (80-96); MEAN PLT VOLUME 8.8 fl (7.5-11.1); PLATELET COUNT 273 K/MM3 (134-434); RBC 4.98 M/mm3 (3.60-5.2); RDW 13.6 % (11.6-15.6); WHITE BLOOD COUNT 23.6 K/mm3 (4.0-10.0)
[2017-09-23 09:05] LABS: INR 2.65 (0.82-1.09)
--- NOTE | 2017-09-23 09:58 | PN ---
Teaching Attending Note Name of Resident: . ATTENDING PHYSICIAN STATEMENT SUBJECTIVE: Patient seen and examined. NO diarrhea, chest pain, headache, palpitations or dizziness. Overall feels good. Has reducible hernia, no abdominal pain currently , able to reduce the same. OBJECTIVE: Vital Signs Period Temp Pulse Resp BP Sys/Espinoza Pulse Ox Last 24 Hr 97.3 F-98 F 57-88 16-19 114-151/48-60 96-97 Intake & Output 09/20/17 09/21/17 09/22/17 09/23/17 23:59 23:59 23:59 23:59 Intake Total 371 1468 982 120 Output Total 800 Balance 371 668 982 120 GEneral: lying in bed in no acute distress CVS:S1S2 irregular Chest: CTAB, no rales or wheezing abdomen: soft, reducible ventral hernia, non tender, positive bowel sounds extremities: no edema Neuro AAOX3, unchanged exam Home Medication List Medication Instructions Recorded Confirmed Type Amlodipine Bes/Olmesartan Med 1 each PO DAILY 09/29/13 09/06/17 History [Moose 5-40 mg Tablet] Active Medications Generic Name Dose Route Start Last Admin Trade Name Freq PRN Reason Stop Dose Admin Amlodipine Besylate 10 mg 09/19/17 10:00 09/22/17 10:00 Norvasc - PO 10 mg DAILY SHAHRAM Administration Aspirin 81 mg 09/19/17 10:00 09/22/17 10:00 Asa - PO 81 mg DAILY SHAHRAM Administration Atorvastatin Calcium 80 mg 09/18/17 22:00 09/22/17 21:28 Lipitor - PO 80 mg HS SHAHRAM Administration Labetalol HCl 10 mg 09/18/17 13:19 Normodyne Injection - IVPUSH Q3H PRN HYPERTENSION Nystatin 1 applic 09/18/17 22:00 09/22/17 21:28 Mycostatin Cream - TP 1 applic BID SHAHRAM Administration Ranitidine HCl 150 mg 09/19/17 10:00 09/22/17 10:00 Zantac - PO 150 mg DAILY SHAHRAM Administration Sucralfate 1 gm 09/18/17 22:00 09/22/17 21:28 Carafate Oral Suspension - PO Not Given BID SHAHRAM Warfarin Sodium 1 mg 09/19/17 18:00 09/22/17 17:22 Coumadin - PO 1 mg DAILY@1800 SHAHRAM Administration Laboratory Results - last 24 hr 09/23/17 09/23/17 08:20 08:20 WBC 23.6 H RBC 4.98 Hgb 14.3 D Hct 44.6 MCV 89.6 MCH 28.8 MCHC 32.1 RDW 13.6 Plt Count 273 MPV 8.8 PT with INR 30.00 H INR 2.65 H Microbiology 09/14/17 15:00 Blood - Peripheral Venous Blood Culture - Final NO GROWTH AFTER 5 DAYS INCUBATION 09/14/17 13:48 Blood - Peripheral Venous Blood Culture - Final NO GROWTH AFTER 5 DAYS INCUBATION 09/18/17 22:15 Stool Clostridium difficile Antigen (TORRES) - Final 09/18/17 22:15 Stool Clostridium difficile Toxin Assay - Final 09/06/17 12:29 Blood - Peripheral Venous Blood Culture - Final NO GROWTH AFTER 5 DAYS INCUBATION 09/06/17 12:29 Blood - Peripheral Venous Blood Culture - Final NO GROWTH AFTER 5 DAYS INCUBATION 09/09/17 09:50 Urine - Urine Clean Catch Legionella Antigen - Final 09/09/17 09:50 Urine - Urine Clean Catch Streptococcus pneumoniae Antigen ( M - Final 09/06/17 15:00 Urine - Urine Clean Catch Urine Culture - Final NO GROWTH OBTAINED 09/06/17 16:00 Nasopharyngeal Swab Influenza Types A,B Antigen (TORRES) - Final 09/06/17 16:00 Nasopharyngeal Swab - Final ASSESSMENT AND PLAN: 82 yo F with PMHx of HTN, HLD, admitted with shortness of breath, likely LLL CAP with sepsis, with component of acute diastolic heart failure, hypertensive urgency and Possible right acute/subacute frontoparietal CVA. 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 INR stable. FOBT positive, patient with watery diarrhea, Stool C difficile neg, h/h stable now, no gross evidence of bleed or hemodynamic instability. GI consult with Dr. Wren given patient on heparin/coumadin noted, no plans for intervention. Monitor h/h for now. Diarrhea improved. Stool C difficile neg. BP improved. Continue oral antihypertensives. Patient AAOX3, conversant and appopriate. Palliative care input noted, patient DNR/DNI. Patient has declined further workup for her leucocytosis though states suspects she has CLL and her brother has h/o CLL as well. Declined neurosurgical intervention in the past. PT kaylene noted, discussed with CM, medically ready for d.c, if can be accepted at [facility] today, d/c pending the same. Plan discussed with patient in detail, all questions answered
[2017-09-23] MEDS: SUCRALFATE 1 GM/10 ML UNIT DOSE CUPS PO SCH (11:00)
[2017-09-23] MEDS: NYSTATIN 100,000 UNIT/GM TOPICAL CREAM 15 GM TUBE TP SCH (11:00)
[2017-09-23] MEDS: ASPIRIN 81 MG CHEWABLE TABLETS PO SCH (11:00)
[2017-09-23] MEDS: amLODIPine BESYLATE 10 MG TABLET (FP) PO SCH (11:01)
[2017-09-23] MEDS: RANITIDINE HCL 150 MG TABLET (FP) PO SCH (11:01)
[2017-09-23 11:47] LABS: ACANTHOCYTES 0; ANISOCYTOSIS 0; HELMET CELLS 0; HOWELL-JOLLY BODIES 0; MACROCYTOSIS 0; OVALOCYTE 0; PLATELET ESTIMATE NORMAL; SICKELED CELLS 0; TARGET CELLS 0; TEAR DROP CELLS 0; TOXIC GRANULATION 0
--- NOTE | 2017-09-23 13:52 | DS ---
Physical Exam: SUBJECTIVE: Patient seen and examined. NO headache, chest pain, palpitations, abdominal pain or diarrhea. OBJECTIVE: Vital Signs Period Temp Pulse Resp BP Sys/Espinoza Pulse Ox Last 24 Hr 97.3 F-98 F 57-88 19-19 117-151/48-60 97 PHYSICAL EXAM GEneral: lying in bed in no acute distress CVS:S1S2 irregular Chest: CTAB, no rales or wheezing abdomen: soft, reducible ventral hernia, non tender, positive bowel sounds extremities: no edema Neuro AAOX3, power 5/5, no pronator drift, EOMI, PERRLA, unchanged from prior LABS Laboratory Results - last 24 hr 09/23/17 09/23/17 08:20 08:20 WBC 23.6 H RBC 4.98 Hgb 14.3 D Hct 44.6 MCV 89.6 MCH 28.8 MCHC 32.1 RDW 13.6 Plt Count 273 MPV 8.8 Neutrophils % (Manual) 83.0 H Band Neutrophils % 0.0 Lymphocytes % (Manual) 6.0 L Monocytes % (Manual) 10 Eosinophils % (Manual) 0.0 D Basophils % (Manual) 0.0 Myelocytes % (Man) 0 Metamyelocytes 0 D Hypochromia 0 Toxic Granulation 0 Dohle Bodies 0 Platelet Estimate Normal Polychromasia 0 Poikilocytosis 0 Basophilic Stippling 0 Anisocytosis 0 Microcytosis 0 Macrocytosis 0 Spherocytes 0 Sickle Cells 0 Target Cells 0 Tear Drop Cells 0 Ovalocytes 0 Stomatocytes 0 Helmet Cells 0 [place] Bodies 0 [place] Rings 0 Kelly Cells 0 Acanthocytes (Spur) 0 Fragmented RBCs 0 Schistocytes 0 PT with INR 30.00 H INR 2.65 H HOSPITAL COURSE: Date of Admission:09/06/17 Date of Discharge: 09/23/17 Minutes to complete discharge: 45 Discharge Summary Reason For Visit: HYPERTENSIVE EMERGENCY Current Active Problems (HFpEF) heart failure with preserved ejection fraction (Acute) Accelerated hypertension (Acute) Afib (Acute) Altered mental status (Acute) CVA (cerebral vascular accident) (Acute) Heme positive stool (Acute) Hyperkalemia (Acute) Hypertensive emergency (Acute) Left ventricular failure (Acute) Pneumonia (Acute) Sepsis (Acute) Supratherapeutic INR (Acute) Transaminitis (Acute) Ventricular premature beats, contractions, or systoles (Acute) Hospital Course: 82 yof with PMHx of HTN, HLD, was admitted with shortness of breath and altered mental status. She was found with acute hypoxic respiratory failure and treated for sepsis due to community acquired pneumonia and admitted to ICU. She had CT brain on admission showing acute/subacute infarct in right fronto-parietal region. She was hypertensive in the ER. Neurology was consulted. Patient was placed on antibiotics and non rebreather masek (but never intubated) . She finished a week course of ceftriaxone and azithromycin and was seen by infectious disease. Neurology was consulted.She had MRI brain showing acute Right MCA involving temporoparietal region with local mass effect and right PICA infarct with cerebellar CVA. Her MRA brain showing absence of flow in PICA and narrrowing of MCA. Her neck MRA and Carotid duplex were negative for concerning stenosis. She had new onset of afib with RVR. She had intermittent episodes of confusion and had a repeat CT brain showing evolving cerebellar and frontotemporoparietal infarct with effacement and mass effect. She was seen neurosurgery and offered surgical intervention which patient declined. She was placed on short term course of decadron. She was noted with new onset with Atrial fibrillation with RVR, and per cardiology and neurology recommendations, was placed on heparin drip, she was started on coumadin, had supratherapuetic INR upto 6.99, for which she recieved Vitamin K in the ICU but was continued on her heparin drip. Her coumadin was resumed at lower dose 1 mg and INR has been therapeutic now. She was followed by cardiology, had 2D echo that showed EF 59.3%, dilated left atrium and mild mitral regurgitation. She was hypertensive during her initial stay, after 24 hours of permissive hypertension, her BP was controlled. She was placed on labetalol prn in the iCU. Her BP is currently controlled and will be resumed on home regimen. She had some diastolic heart failure on admission that reponded to blood pressure control and few doses of lasix. She was noted with occult blood positive stools, was seen by gastroenterology, but was advised no intervention but outpatient follow up. Her hemoglobin was stable on anti-coagulation and she is currently on sucralfate. She was also evaluated by speech/swallow evaluation and physical therapy. She was also noted with leucocytosis that worsened with steroids. Her WBC has improved. She was seen by hematology, but reported that her brother has CLL but she refused any additional work up including biopsy. She was seen by palliative care and expressed clear wishes wanting to be DNR/ DNI. Condition: Improved - Instructions Diet, Activity, Other Instructions: You were treated for an acute Middle Cerebral Artery territory infarction involving the temporoparietal lobes, an acute Right Posterior Inferior Cerebellar Artery territory infarction, acute diastolic heart failure, new onset afib (onset was 09/10/17), and for Community Acquired Pneumonia. You were bridged from Heparin to Coumadin for anticoagulation related to your afib. You completed a course of IV antibiotics of pneumonia, which is now resolved. You were initially seen by neurosurgeon and declined surgery. You were also seen by palliative care and expressed wishes to be DNR/DNI. Your stool was positive for occult blood but your blood counts have been stable. You advised to have CBC in 2-3 days and then will need serial CBC monitoring with your doctor. You had elevated WBC count that has improved. However, you notified that you have always had elevated WBC count and declined any further work up or bone marrow biopsy when seen by oncologist in the hospital. You have new medications: Coumadin 1mg daily Aspirin 81mg daily Lipitor 80mg at bedtime Sucralafate 1mg twice a day Please resume your home blood pressure medication of Moose (Amlodipine/ Olmesartan 5-40) daily. Your Lasix was discontinued. Continue to eat a soft diet with nutrition supplements as often as necessary to maintain your body weight. Increase your level of physical activity as tolerated. Follow up: Please see your Primary Care Doctor / [employer] Corrosion Proofer (Dr. Quiñones) in 1 week. Gastroenterology follow up with Dr. Wren in [address] Pérez in 2 weeks Follow up Blood work: INR on 09/24/2017, and dose coumadin per [facility] MD. CBC in 3-5 days and serial CBC monitorign. Currently you are on coumadin 1 mg daily. Continued palliative care follow to address overall goals of care. Please return to the hospital immediately if your experience persistent or increased headache, chest pain, difficulty breathing, dark or bloody stools, any bleeding or for any medical emergency. Referrals: Suman Pérez MD [Staff Physician] - Garrett Wren MD [Staff Physician] - Kale Quiñones MD [Primary Care Provider] - 1 Week Disposition: NURSING HOME FACILITY - Home Medications Comprehensive Discharge Medication List: Ambulatory Orders Amlodipine Bes/Olmesartan Med [Moose 5-40 mg Tablet] 1 each PO DAILY 09/29/13 Aspirin [ASA -] 81 mg PO DAILY #0 tab.chew 09/22/17 Atorvastatin Ca [Lipitor] 80 mg PO HS #30 tablet 09/22/17 Sucralfate Oral Suspension [Carafate Oral Suspension -] 1 gm PO BID #60 ml 09/22 Warfarin Na [Coumadin -] 1 mg PO DAILY@1800 #30 tablet 09/22/17 This patient is new to me today: No Emergency Visit: No Critical Care patient: No - Discharge Referral Referred to [facility] No
[2017-09-23] MEDS: WARFARIN NA 1 MG TABLET (FP) PO SCH (17:45)
--- NOTE | 2017-09-23 18:42 | PN ---
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 History of hypertension and hypercholesterolemia and new onset atrial fibrillation with controlled ventricular response. Patient denies any symtoms, she is conversing without difficulty, appetite has significantly improved. [facility] Active Medications Generic Name Dose Route Start Last Admin Trade Name Freq PRN Reason Stop Dose Admin Amlodipine Besylate 10 mg 09/19/17 10:00 09/23/17 11:01 Norvasc - PO 10 mg DAILY SHAHRAM Administration Aspirin 81 mg 09/19/17 10:00 09/23/17 11:00 Asa - PO 81 mg DAILY SHAHRAM Administration Atorvastatin Calcium 80 mg 09/18/17 22:00 09/22/17 21:28 Lipitor - PO 80 mg HS SHAHRAM Administration Labetalol HCl 10 mg 09/18/17 13:19 Normodyne Injection - IVPUSH Q3H PRN HYPERTENSION Nystatin 1 applic 09/18/17 22:00 09/23/17 11:00 Mycostatin Cream - TP 1 applic BID SHAHRAM Administration Ranitidine HCl 150 mg 09/19/17 10:00 09/23/17 11:01 Zantac - PO 150 mg DAILY SHAHRAM Administration Sucralfate 1 gm 09/18/17 22:00 09/23/17 11:00 Carafate Oral Suspension - PO 1 gm BID SHAHRAM Administration Warfarin Sodium 1 mg 09/19/17 18:00 09/23/17 17:45 Coumadin - PO 1 mg DAILY@1800 SHAHRAM Administration 82 year old female is lethargic but alert. No pallor or cyanosis, clubbing or jaundice. Last Vital Signs Temp Pulse Resp BP Pulse Ox 97.9 F 86 17 128/53 99 09/23/17 15:32 09/23/17 15:32 09/23/17 15:32 09/23/17 15:32 09/23/17 09:00 NECK: Supple, no JVD, No HJR, carotids are 2+, no bruits are heard. HEART: PMI is in 5th ICS, no heaves or thrills. S1 and S2 are normal. No murmur or gallops were heard. LUNGS: Clear on auscultation ABDOMEN: Soft, nontender, no organomegaly or palpable masses felt. EXTREMITIES: No calf tenderness or dependent edema. INSTALLER SOFT TOP:Alert, oriented in space and time, no gross focal deficit. CBC, BMP 09/23/17 08:20 09/21/17 09:16 INR, PTT INR 2.65 (0.82-1.09) H 09/23/17 08:20 A: 1. CVA, embolic, without deficit 2. Hypertension, presently normotensive. 3. Dreasing leukocytosis 4. Atrial fibrillation with controlled ventricular response. 5. Hypercholestrolemia 6. S/p CHF. Recommendations: 1. Anticoagulation in progress. 2. Scheduled for inpatient rehab. 3 Will need JESSICA/cardioversion, after 4 to 6 weeks of anticoagulation. Problem List - Problems (1) Sepsis Code(s): A41.9 - SEPSIS, UNSPECIFIED ORGANISM (2) Accelerated hypertension Code(s): I10 - ESSENTIAL (PRIMARY) HYPERTENSION (3) Ventricular premature beats, contractions, or systoles Code(s): I49.3 - VENTRICULAR PREMATURE DEPOLARIZATION (4) Altered mental status Code(s): R41.82 - ALTERED MENTAL STATUS, UNSPECIFIED Qualifiers: Altered mental status type: transient alteration of awareness Qualified Code(s): R40.4 - Transient alteration of awareness (5) Pneumonia Code(s): J18.9 - PNEUMONIA, UNSPECIFIED ORGANISM Qualifiers: Pneumonia type: due to unspecified organism Laterality: left Lung location: lower lobe of lung Qualified Code(s): J18.1 - Lobar pneumonia, unspecified organism (6) Left ventricular failure Code(s): I50.1 - LEFT VENTRICULAR FAILURE, UNSPECIFIED (7) Afib Code(s): I48.91 - UNSPECIFIED ATRIAL FIBRILLATION (8) CVA (cerebral vascular accident) Code(s): I63.9 - CEREBRAL INFARCTION, UNSPECIFIED Qualifiers: CVA mechanism: unspecified Qualified Code(s): I63.9 - Cerebral infarction, unspecified
[2017-09-23 19:51] VITALS: BP 117/72; PULSE 94; TEMP 98.1
== END 2017-09-23 23:03 | DRG 871 ==
LOC: JER 11:49 → JERBED 14:49 → JICU 21:29 → J4W 09-09 18:46 → JICU 09-10 11:13 → J4S 09-18 20:35
PROVIDERS: ADMIT Hospitalist; ATTEND Hospitalist
DX: A41.9 Sepsis, unspecified organism (principal); J18.9 Pneumonia, unspecified organism; J96.01 Acute respiratory failure with hypoxia; G92 Toxic encephalopathy; G93.6 Cerebral edema; I63.412 Cerebral infarction due to embolism of left middle cerebral artery; I50.33 Acute on chronic diastolic (congestive) heart failure; I16.1 Hypertensive emergency; D68.9 Coagulation defect, unspecified; I47.2 Ventricular tachycardia; G81.92 Hemiplegia, unspecified affecting left dominant side; E87.5 Hyperkalemia; E78.5 Hyperlipidemia, unspecified; R41.82 Altered mental status, unspecified; R29.701 NIHSS score 1; D72.829 Elevated white blood cell count, unspecified; I49.3 Ventricular premature depolarization; I11.0 Hypertensive heart disease with heart failure; E87.6 Hypokalemia; E86.0 Dehydration; F32.9 Major depressive disorder, single episode, unspecified; I48.0 Paroxysmal atrial fibrillation
CPT/HCPCS: 36415; 70450-TC; 70544-TC; 70547-TC; 70551-TC; 71010-TC; 71250-TC; 80048; 80053; 80061; 81003; 81015; 82272; 82550; 82607; 82746; 82803; 83036; 83605; 83721; 83735; 83880; 84100; 84443; 84484; 85025; 85027; 85610; 85730; 86850; 86900; 86901; 87040; 87086; 87324; 87449; 87804; 87899; 90670; 90688; 93005; 93010; 93306-TC; 93880-TC; 94640; 97116-GP; 97161-GP; 97164-GP; 99285-25; G0008; G0009; J1100; J1644

== ENCOUNTER 2018-01-14 10:40 | Inpatient (IN) | payer OTHER ==
--- NOTE | 2018-01-14 11:29 | PDOC ---
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 The patient reports experiencing a 15 minute episode of moderate, continuous palpitations at about 2 -3AM, which she states felt like a repetitive sensation of going up in an elevator and dropping, followed by a brief pause. She reports calling Dr. Quiñones about her symptoms, who told her to present to the ED for evaluation. The patient denies any palpitations at presentation. She denies chest pain and shortness of breath. The patient denies headache, and dizziness. Denies fevers, chills, nausea, vomit, diarrhea, and constipation. Denies dysuria, frequency, urgency, and hematuria. Allergies: NKA Past surgical history: Hysterectomy. Kidney stones. Social history: Former smoker. No reported alcohol or drug use. PCP/Cardio: Dr. Quiñones <Barry Timmons - Last Filed: 01/14/18 12:24> <Thanh Kaur - Last Filed: 01/14/18 14:53> - General Chief Complaint: Palpitations Stated Complaint: PALPITATIONS (PCP SENT) Time Seen by Provider: 01/14/18 11:03 Past History <Barry Timmons - Last Filed: 01/14/18 12:24> - Past Medical History Anemia: Yes Asthma: No Cancer: No Cardiac Disorders: Yes (a.fib) CVA: Yes (x3) COPD: No CHF: No DVT: Yes Dementia: No Diabetes: No GI Disorders: Yes Disorders: Yes (KIDNEY STONES) HTN: Yes Hypercholesterolemia: Yes Liver Disease: No Seizures: No Thyroid Disease: No Other medical history: dic, septic shock,cataract - Surgical History Abdominal Surgery: Yes Appendectomy: Yes Cardiac Surgery: No Cholecystectomy: No Lung Surgery: No Neurologic Surgery: No Orthopedic Surgery: No - Immunization History Immunization Up to Date: Yes - Suicide/Smoking/Psychosocial Hx Smoking History: Never smoked Have you smoked in the past 12 months: No If you are a former smoker, when did you quit?: 40yrs Information on smoking cessation initiated: No Hx Alcohol Use: No Drug/Substance Use Hx: No Substance Use Type: None Hx Substance Use Treatment: No <Thanh Kaur - Last Filed: 01/14/18 14:53> - Past Medical History Allergies/Adverse Reactions: Allergies Allergy/AdvReac Type Severity Reaction Status Date / Time No Known Allergies Allergy Verified 01/14/18 10:41 Home Medications: Ambulatory Orders Aspirin [ASA -] 81 mg PO DAILY #0 tab.chew 09/22/17 Furosemide [Lasix] 20 mg PO ASDIR 01/14/18 Hydrochlorothiazide [Hctz -] 12.5 mg PO DAILY 01/14/18 Nebivolol HCl [Bystolic] 10 mg PO BID 01/14/18 Omeprazole 40 mg PO BID 01/14/18 Rosuvastatin Calcium [Crestor] 10 mg PO DAILY 01/14/18 Warfarin Na [Coumadin -] 2 mg PO DAILY@1800 01/14/18 Review of Systems - Review of Systems Able to Perform ROS?: Yes Comments:: 01/14/18 11:54 A complete review of 10 out of 10 review of systems is taken and is negative apart from what is previously mentioned below and in the HPI. <Barry Timmons - Last Filed: 01/14/18 12:24> *Physical Exam - Vital Signs Last Vital Signs Temp Pulse Resp BP Pulse Ox 98.2 F 106 H 18 159/82 100 01/14/18 10:41 01/14/18 10:41 01/14/18 10:41 01/14/18 10:41 01/14/18 10:41 - Physical Exam Comments: 01/14/18 11:55 Vitals: Triage Vital signs reviewed General Appearance: no acute distress, well nourished well developed, Neck: Supple;No Nuchal rigidity Chest Wall: Nontender Cardiac: Irregularly irregular rate. Normal rhythm, no murmurs, no rubs, no gallops, Lungs: Clear to auscultation bilateral, good air movement bilaterally, Neuro: AOX3; Cranial Nerves 2-12 grossly intact, Strength intact to all extremities, Sensation intact to all extremities Psych: normal mood, normal affect <Barry Timmons - Last Filed: 01/14/18 12:24> - Vital Signs Last Vital Signs Temp Pulse Resp BP Pulse Ox 98.2 F 106 H 18 159/82 100 01/14/18 10:41 01/14/18 10:41 01/14/18 10:41 01/14/18 10:41 01/14/18 10:41 <Thanh Kaur - Last Filed: 01/14/18 14:53> Heart Score/ECG Review - ECG Impressions Comment:: 01/14/18 14:53 A flutter with variable AV block at 95. No ST elevations or T-wave inversions. <Thanh Kaur - Last Filed: 01/14/18 14:53> ED Treatment Course - LABORATORY CBC & Chemistry Diagram: 01/14/18 11:50 01/14/18 11:50 <Barry Timmons - Last Filed: 01/14/18 12:24> - LABORATORY CBC & Chemistry Diagram: 01/14/18 11:50 01/14/18 11:50 - RADIOLOGY Radiology Studies Ordered: Category Date Time Status CXRPORT [CHEST X-RAY PORTABLE*] [RAD] Stat Radiology 01/14/18 11:04 Ordered <Thanh Kaur - Last Filed: 01/14/18 14:53> Medical Decision Making - Medical Decision Making 01/14/18 14:16 A. 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 <Thanh Kaur - Last Filed: 01/14/18 14:53> *DC/Admit/Observation/Transfer - Attestations Scribe Attestion: 01/14/18 11:55 Documentation prepared by Barry Timmons, acting as medical chemist for Thanh Kaur MD. <Barry Timmons - Last Filed: 01/14/18 12:24> - Discharge Dispostion Admit: Yes <Thanh Kaur - Last Filed: 01/14/18 14:53> Diagnosis at time of Disposition: Palpitations Cellulitis Qualifiers: Site of cellulitis: extremity Site of cellulitis of extremity: lower extremity Laterality: unspecified laterality Qualified Code(s): L03.119 - Cellulitis of unspecified part of limb
[2018-01-14 12:07] LABS: BASO % 0.5 % (0-2.0); EOS % 2.2 % (0-4.5); HEMATOCRIT 39.2 % (32.4-45.2); HEMOGLOBIN 12.7 GM/dL (10.7-15.3); LYMPH % 8.8 % (8-40); MCH 26.6 pg (25.7-33.7); MCHC 32.5 g/dl (32.0-36.0); MEAN PLT VOLUME 7.9 fl (7.5-11.1); MONO % 20.4 % (3.8-10.2); NEUT % 68.1 % (42.8-82.8); PLATELET COUNT 270 K/MM3 (134-434); RBC 4.78 M/mm3 (3.60-5.2); RDW 15.6 % (11.6-15.6); WHITE BLOOD COUNT 14.2 K/mm3 (4.0-10.0)
--- NOTE | 2018-01-14 12:10 | EKG ---
Test Reason : Blood Pressure : / mmHG Vent. Rate : 095 BPM Atrial Rate : 375 BPM P-R Int : 000 ms QRS Dur : 080 ms QT Int : 368 ms P-R-T Axes : 000 060 033 degrees QTc Int : 462 ms ATRIAL FLUTTER WITH VARIABLE A-V BLOCK NONSPECIFIC ST ABNORMALITY ABNORMAL ECG WHEN COMPARED WITH ECG OF 09-SEP-2017 23:20, ATRIAL FLUTTER HAS REPLACED ATRIAL FIBRILLATION ST NO LONGER DEPRESSED IN INFERIOR LEADS ST NO LONGER DEPRESSED IN ANTEROLATERAL LEADS T WAVE INVERSION NO LONGER EVIDENT IN INFERIOR LEADS NONSPECIFIC T WAVE ABNORMALITY NOW EVIDENT IN ANTERIOR LEADS Confirmed by ANGELLA JEWELL MD ([id number]) on 01/14/2018 12:10:10 PM Referred By: Confirmed By:ANGELLA JEWELL MD
[2018-01-14 12:18] LABS: INR 3.07 (0.82-1.09); PROTHROMBIN TIME (PATIENT) 34.7 SEC (9.98-11.88)
[2018-01-14 12:21] LABS: ACTIVATED PTT 40.9 SECONDS (26.9-34.4)
[2018-01-14 12:37] LABS: MAGNESIUM 2.1 mg/dL (1.8-2.4)
[2018-01-14 12:40] LABS: ALBUMIN 3.2 g/dl (3.4-5.0); ANION GAP 6 (8-16); BILIRUBIN,TOTAL 0.8 mg/dL (0.2-1.0); BLOOD UREA NITROGEN 22 mg/dL (7-18); CALCIUM 8.2 mg/dL (8.5-10.1); CHLORIDE 111 mmol/L (98-107); CO2 26 mmol/L (21-32); CREATININE 0.7 mg/dL (0.55-1.02); GLUCOSE,RANDOM 100 mg/dL (74-106); POTASSIUM 3.9 mmol/L (3.5-5.1); SGOT/AST 20 U/L (15-37); SGPT/ALT 31 U/L (12-78); SODIUM 143 mmol/L (136-145); TOT PROT 6.2 g/dl (6.4-8.2)
[2018-01-14 12:48] LABS: ALK PHOS 94 U/L (45-117)
[2018-01-14] MEDS ORDERED: SOTALOL HCL 80 MG TABLET (FP) PO STA (14:00)
[2018-01-14] MEDS ORDERED: CEFAZOLIN 1 GM in DEXTROSE 5%-WATER - 50 ML IVPB ONE (14:02)
[2018-01-14] MEDS ORDERED: ceFAZolin SODIUM 1 GM VIAL ONE (14:18)
--- NOTE | 2018-01-14 15:14 | HP ---
CHIEF COMPLAINT: palpitations PCP: Dr. 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 The patient reports that she has not had this in the past. She states they lasted about 15 minutes. The patient also reports that last night she was sitting on a chair that broke and she fell on her buttocks. She has complaints of left hip pain, but is noted to be moving her left leg with full ROM during the interview. The patient also reports b/l lower extremity erythema that "has been there since my last admission" in August. She states that there are open sores on her left leg that she has been putting a duoderm on as needed. The patient denies any shortness of breath, chest pain, headache, dizziness, syncope, dysuria, frequency, urgency, hematuria, nausea, vomiting, diarrhea, constipation. ER course was notable for: (1) Temp 98.2, pulse 106, BP 159/82, resp 18, O2 100% on RA (2) WBC 14.2 (3) INR 3.07 (4) Chest X-ray with probable very small right pleural effusion (5) EKG: A.flutter with variable A-V block Recent Travel: denies PAST MEDICAL HISTORY: as above PAST SURGICAL HISTORY: as above Social History: Smoking: denies Alcohol: denies Drugs: denies Family History: Allergies No Known Allergies Allergy (Verified 01/14/18 10:41) HOME MEDICATIONS: Home Medications Medication Instructions Recorded Aspirin [ASA -] 81 mg PO DAILY #0 tab.chew 09/22/17 Furosemide [Lasix] 20 mg PO ASDIR 01/14/18 Hydrochlorothiazide [Hctz -] 12.5 mg PO DAILY 01/14/18 Nebivolol HCl [Bystolic] 10 mg PO BID 01/14/18 Omeprazole 40 mg PO BID 01/14/18 Rosuvastatin Calcium [Crestor] 10 mg PO DAILY 01/14/18 Warfarin Na [Coumadin -] 2 mg PO DAILY@1800 01/14/18 REVIEW OF SYSTEMS CONSTITUTIONAL: Absent: fever, chills, diaphoresis, generalized weakness, malaise, loss of appetite, weight change HEENT: Absent: rhinorrhea, nasal congestion, throat pain, throat swelling, difficulty swallowing, mouth swelling, ear pain, eye pain, visual changes CARDIOVASCULAR: Palpitations that began this morning around 2am that lasted about 15 minutes. Absent: chest pain, syncope, irregular heart rate, lightheadedness, peripheral edema RESPIRATORY: Absent: cough, shortness of breath, dyspnea with exertion, orthopnea, wheezing, stridor, hemoptysis GASTROINTESTINAL: Absent: abdominal pain, abdominal distension, nausea, vomiting, diarrhea, constipation, melena, hematochezia GENITOURINARY: Absent: dysuria, frequency, urgency, hesitancy, hematuria, flank pain, genital pain MUSCULOSKELETAL: Absent: myalgia, arthralgia, joint swelling, back pain, neck pain SKIN: Lower extremity erythema that the patient reports has been there since August Absent: itching, pallor HEMATOLOGIC/IMMUNOLOGIC: Absent: easy bleeding, easy bruising, lymphadenopathy, frequent infections ENDOCRINE: Absent: unexplained weight gain, unexplained weight loss, heat intolerance, cold intolerance NEUROLOGIC: Absent: headache, focal weakness or paresthesias, dizziness, unsteady gait, seizure, mental status changes, bladder or bowel incontinence PSYCHIATRIC: Absent: anxiety, depression, suicidal or homicidal ideation, hallucinations. PHYSICAL EXAMINATION Vital Signs - 24 hr 01/14/18 01/14/18 10:41 14:38 Temperature 98.2 F Pulse Rate 106 H Pulse Rate [ 97 H Apical] Respiratory 18 17 Rate Blood Pressure 159/82 Blood Pressure 157/84 [Left Arm] O2 Sat by Pulse 100 98 Oximetry (%) GENERAL: Awake, alert, and fully oriented, in no acute distress. HEAD: Normal with no signs of trauma. EYES: Pupils equal, round and reactive to light, extraocular movements intact, sclera anicteric, conjunctiva clear. No lid lag. EARS, NOSE, THROAT: Ears normal, nares patent, oropharynx clear without exudates. Moist mucous membranes. NECK: Normal range of motion, supple without lymphadenopathy, JVD, or masses. LUNGS: Breath sounds equal, clear to auscultation bilaterally. No wheezes, and no crackles. No accessory muscle use. HEART: Regular rate and rhythm, normal S1 and S2 without murmur, rub or gallop. ABDOMEN: Soft, nontender, not distended, normoactive bowel sounds, no guarding, no rebound, no masses. No hepatomegaly or splenomegaly. MUSCULOSKELETAL: Normal range of motion at all joints. No bony deformities or tenderness. No CVA tenderness. UPPER EXTREMITIES: 2+ pulses, warm, well-perfused. No cyanosis. No clubbing. No peripheral edema. LOWER EXTREMITIES: B/l lower extremity erythema extending from foot to long term up calf. Left lateral wound with clear drainage. 2+ pulses, warm, well- perfused. NEUROLOGICAL: Cranial nerves II-XII intact. Normal speech. Normal gait. PSYCHIATRIC: Cooperative. Good eye contact. Appropriate mood and affect. SKIN: Warm, dry, normal turgor. normal capillary refill. Laboratory Results - last 24 hr 01/14/18 01/14/18 01/14/18 11:50 11:50 11:50 WBC 14.2 H RBC 4.78 Hgb 12.7 Hct 39.2 MCV 82.0 MCH 26.6 MCHC 32.5 RDW 15.6 Plt Count 270 MPV 7.9 Neutrophils % 68.1 Lymphocytes % 8.8 D Monocytes % 20.4 H Eosinophils % 2.2 Basophils % 0.5 PT with INR INR PTT (Actin FS) Sodium 143 Potassium 3.9 Chloride 111 H Carbon Dioxide 26 Anion Gap 6 L BUN 22 H Creatinine 0.7 Creat Clearance w eGFR > 60 Random Glucose 100 Calcium 8.2 L Magnesium Total Bilirubin 0.8 D AST 20 ALT 31 Alkaline Phosphatase 94 Troponin I < 0.02 Total Protein 6.2 L Albumin 3.2 L Cholesterol TSH 1.18 Cancelled 01/14/18 01/14/18 11:50 11:50 WBC RBC Hgb Hct MCV MCH MCHC RDW Plt Count MPV Neutrophils % Lymphocytes % Monocytes % Eosinophils % Basophils % PT with INR 34.70 H INR 3.07 H D PTT (Actin FS) 40.9 H D Sodium Potassium Chloride Carbon Dioxide Anion Gap BUN Creatinine Creat Clearance w eGFR Random Glucose Calcium Magnesium 2.1 Total Bilirubin AST ALT Alkaline Phosphatase Troponin I Total Protein Albumin Cholesterol 149 TSH Assessment: 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 Plan: 1) A.flutter with palpitations - Per ED documented conversation with cardiology: recommending change from bystolic to betapace - First dose of betapace given in the ED - On Coumadin, INR slightly supratherapeutic today, will give half home dose of Coumadin tonight, recheck INR tomorrow - Cardiac monitoring - F/u cardiology consult 2) B/l lower extremity cellulitis - Continue Zosyn - Continue Vancomycin - F/u blood cultures - F/u lower extremity doppler to r/o DVT - Appreciate ID consult 3) F/E/N: - Monitor electrolytes - Sodium controlled diet 4) Prophylaxis: - INR therapeutic on Coumadin 5) Dispo: - Once condition improves CODE STATUS: FULL CODE Visit type - Emergency Visit Emergency Visit: Yes ED Registration Date: 01/15/18 Care time: The patient presented to the Emergency Department on the above date and was hospitalized for further evaluation of their emergent condition. - New Patient This patient is new to me today: Yes Date on this admission: 02/04/18 - Critical Care Critical Care patient: No Hospitalist Screening - Colonoscopy Questionnaire Colonoscopy Questionnaire: Colonoscopy Questionnaire - Patient: 50 - 75 years old and never had a screening colonoscopy: Unknown History of colon or rectal polyps, or CA: Unknown History of IBD, Crohn's disease or UC: Unknown History of abdominal radiation therapy as a child: Unknown - Relative: 1 with colon or rectal CA, or polyps at age 60 or younger: Unknown Colon or rectal CA diagnosed at age 45 or younger: Unknown Multiple relatives with colon or rectal CA: Unknown - Outcome: Screening Result: Negative Screen
--- NOTE | 2018-01-14 16:07 | CON.ID ---
Consult Reason for Consultation:: cellulitis - History of Present Illness Chief Complaint: b/l leg redness. L leg lesion History of Present Illness: Pt is an 78 y/o F with PMH AF, DVT, CVA, DVT, DIC, Septic shock who presented to ED because of palpitations. Pt was found to have cellulitic changes in both legs. Pt also has a lesion of the left beverly from bumping into a table. Pt states her leg redness has been chronic and is not painful. Denies fever, chills, nausea, vomiting, diarrhea, dysuria. 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 Cardio/Vascular: Yes: AFIB, Deep Vein Thrombosis Heme/Onc: Yes: Other (DIC) - Alcohol/Substance Use Hx Alcohol Use: No - Smoking History Smoking history: Never smoked Have you smoked in the past 12 months: No If you are a former smoker, when did you quit?: 40yrs Home Medications - Allergies Allergies/Adverse Reactions: Allergies Allergy/AdvReac Type Severity Reaction Status Date / Time No Known Allergies Allergy Verified 01/14/18 10:41 - Home Medications Home Medications: Ambulatory Orders Aspirin [ASA -] 81 mg PO DAILY #0 tab.chew 09/22/17 Furosemide [Lasix] 20 mg PO ASDIR 01/14/18 Hydrochlorothiazide [Hctz -] 12.5 mg PO DAILY 01/14/18 Nebivolol HCl [Bystolic] 10 mg PO BID 01/14/18 Omeprazole 40 mg PO BID 01/14/18 Rosuvastatin Calcium [Crestor] 10 mg PO DAILY 01/14/18 Warfarin Na [Coumadin -] 2 mg PO DAILY@1800 01/14/18 Physical Exam Vital Signs: Vital Signs Temperature 98.2 F 01/14/18 10:41 Pulse Rate 97 H 01/14/18 14:38 Respiratory Rate 17 01/14/18 14:38 Blood Pressure 157/84 01/14/18 14:38 O2 Sat by Pulse Oximetry (%) 98 01/14/18 14:38 Extremities: Yes: Erythema (b/l erythema with healing L lateral beverly contusion . ) Labs: CBC, BMP 01/14/18 11:50 01/14/18 11:50 Assessment/Plan Pt is an 78 y/o F with PMH AF, DVT, CVA, DVT, DIC, Septic shock who presented to ED because of palpitations and was found to have erythematous legs likely cellulitic. #b/l cellulitis -b/l erythema of the legs -no fever -no leukocytosis -Vanc bid & Zosyn q8 Rosendo Mckoy MD PGY-1 ID
[2018-01-14] MEDS ORDERED: FUROSEMIDE 20 MG TABLET (FP) PO SCH (17:00)
[2018-01-14 17:11] VITALS: BMI 23.0
[2018-01-14] MEDS ORDERED: WARFARIN NA 1 MG TABLET (FP) PO ONE (18:00)
[2018-01-14] MEDS ORDERED: PIPERACILLIN/TAZOB 4.5 GM 4.5 GM in DEXTROSE 5%-WATER 100 ML IVPB SCH (18:00)
[2018-01-14] MEDS ORDERED: PIPERACILLIN/TAZOBACTAM 4.5 GM VIAL IVPB ONE (18:34)
[2018-01-14] MEDS ORDERED: DEXTROSE 5%-WATER 100 ML IVPB ONE (18:35)
--- NOTE | 2018-01-14 20:20 | PN ---
Teaching Attending Note Name of Resident: Rosendo Mckoy ATTENDING PHYSICIAN STATEMENT I saw and evaluated the patient. I reviewed the resident's note and discussed the case with the resident. I agree with the resident's findings and plan as documented. SUBJECTIVE:Shyanne reviewed and patient examined in the ER Came to ER for palpitations Incidentally noted were bilateral red legs with a superficial ulcer of the left beverly traumatic No fevers chills systemic complaints but her WBC elevated 14K but this has been chronic yet unaware of any diagnosis of leukemia. OBJECTIVE:Bilateral LE edema and erythema with superficial ulcer of the beverly ASSESSMENT AND PLAN: Clinically I do not feel she has cellulitis Both legs are red but not hot or tender Both very swollen Her WBC high but this is chronic Will give her trial of 48 hours of IV antibiotics Vanco and Zosyn If no improvement would stop treatment Problem List - Problems (1) Cellulitis Code(s): L03.90 - CELLULITIS, UNSPECIFIED Qualifiers: Site of cellulitis: extremity Site of cellulitis of extremity: lower extremity Laterality: unspecified laterality Qualified Code(s): L03.119 - Cellulitis of unspecified part of limb (2) Palpitations Code(s): R00.2 - PALPITATIONS (3) Afib Code(s): I48.91 - UNSPECIFIED ATRIAL FIBRILLATION
[2018-01-14] MEDS ORDERED: FUROSEMIDE 40 MG TABLET (FP) PO ONE (20:45)
--- NOTE | 2018-01-14 21:00 | CONS ---
DATE OF CONSULTATION: 01/14/2018 CARDIOLOGY CONSULTATION LOCATION: Telemetry unit. CHIEF COMPLAINT: 1. Palpitations. 2. Swelling of both lower extremities accompanied by cellulitis. 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 She denies having chest pain or discomfort either with rest or with exertion, no exertional dyspnea, paroxysmal nocturnal dyspnea, or orthopnea. Patient apparently has chronic venous insufficiency and was found to have bilateral pedal edema associated with hyperemia and cellulitis involving both lower extremities. She also has an abrasion/lesion which is covered, apparently occurred because she fell. No history of chest pain or discomfort either at rest or with exertion. No history of lightheadedness, dizziness, presyncope, or syncope. She has longstanding history of hypertension and hypercholesterolemia. She recently suffered cerebrovascular accident which was embolic. History of gastroesophageal reflux disease. She has history of acute left ventricular diastolic failure that was precipitated by accelerated hypertension during her last admission. PAST HISTORY: As mentioned in the history of present illness. SURGICAL HISTORY: 1. Status post tonsillectomy. 2. Status post hysterectomy for leiomyoma. 3. Status post right cataract extraction. 4. Surgical intervention for renal lithiasis. 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 Used to smoke 4 packs of cigarettes per day since her teenage years and stopped at the age of 33. Has an occasional drink. Denies excessive use of caffeine. FAMILY HISTORY: Father in his 70s of rectal carcinoma and was hypertensive. Mother in her 60s, cause is not known. She has a brother who is hypertensive, has CLL, and also has congestive heart failure and atrial fibrillation. ALLERGIES: Patient states that she became allergic to an antibiotic following her last admission. CURRENT MEDICATIONS: 1. Aspirin 81 mg p.o. daily. 2. Vancomycin 500 mg IV piggyback t.i.d. 3. Piperacillin sodium/tazobactam 4.5 g IV q.8 h. 4. Pantoprazole 40 mg p.o. b.i.d. 5. Patient received a dose of sotalol at 1400 hours. 6. Prior to admission, she was on Bystolic, dose uncertain. 7. She was taking Hydrodiuril dose uncertain. 8. Rosuvastatin 5 mg p.o. daily. REVIEW OF SYSTEMS: Constitutional: No history of chills, fever, or night sweats. history of unintentional weight loss. HEENT: No history of headaches, diplopia, blurred vision reported. No history of epistaxis, hoarseness, tinnitus, history of deafness. Cardiovascular: See history of present illness. Respiratory: History of probable pneumonia during her last hospitalization. No history of hemoptysis. Gastrointestinal: No history of nausea, vomiting, melena or hematemesis. Denies abdominal pain or discomfort. No history of change in bowel habits. Neurological: See history of present illness. History of periodic and mood changes. No history of focal weakness. Musculoskeletal: No history of myalgias or arthralgias reported. Hematological: Denies any bleeding. History of periodic ecchymosis. Genitourinary: No history of dysuria, frequency, hematuria, or urgency. PHYSICAL EXAMINATION: General: An 83-year-old female who is in no acute distress, no pallor, cyanosis, clubbing, or jaundice. Vital signs: Weight 120 pounds. Blood pressure 154/67 mmHg, pulse 89 beats per minute and irregularly irregular, temperature 97.5 degrees Fahrenheit, O2 saturation 96% on room air. Neck: Supple. No jugulovenous distention, carotids were 2+, upstrokes were normal, no bruits were heard, and no thyromegaly was present. Heart: PMI was in the 5th intercostal space, S1 was variable, S2 was normal, grade 1/6 ejection systolic murmur was heard at the 2nd right intercostal space and along the left sternal border. No diastolic murmur or gallops were heard. Lungs: Clear on auscultation. Abdomen: Soft, protuberant, nontender, no hepatosplenomegaly or palpable masses were felt. There was an incisional hernia involving the hypogastrium and a linear well healed surgical scar. Bowel sounds were present. Extremities: There was bilateral pedal edema, right more pronounced than left, accompanied by hyperemia. There was apparent lesion that was covered involving the left lateral thigh. Dorsalis pedis and posterior tibial pulses were weak. LABORATORY DATA: CBC: WBC count 14,200. There were 20.4% monocytes. Hemoglobin was 12.7 g/dL. Platelets were 270,000. INR was 3.07. Sodium 143 mg/dL. Potassium 3.9, chloride 111, CO2 of 26 mmol/L. BUN 22, creatinine 0.7 mg/dL. Serum calcium 8.2 mg/dL. Albumin was low at 3.2 g/dL, total protein was 6.2 g and was low. Troponin was less than 0.02. Magnesium was 2.1 mg/dL. Total cholesterol was reported to be 149 mg/dL. TSH was 1.18. X-ray chest probable interval development of supplanting of the right costophrenic angle suggestive of very small pleural effusion as noted above. X-ray of the left hip, impression: Mild degenerative arthritis with no fracture or acute bone or joint abnormalities. ECG: Coarse atrial fibrillation versus rapid atrial flutter with varying AV response. Right axis deviation. Nonspecific ST and T wave abnormalities. IMPRESSION: 1. Persistent atrial fibrillation/flutter with controlled ventricular response. 2. Hypertension, hypertensive cardiovascular disease. 3. Status post embolic cerebrovascular accident. 4. Lower extremity cellulitis. 5. History of hypercholesterolemia. 6. History of gastroesophageal reflux disease. 7. Incisional abdominal hernia. RECOMMENDATION: 1. Betapace 40 mg p.o. q.12 h. 2. Continue anticoagulation with Coumadin and maintain INR between 2 and 2.5. 3. Patient will require Lasix for dependent edema. 4. BNP. 5. Echocardiogram for evaluation of left ventricular function. 6. Benicar 20 mg p.o. daily. 7. Follow up ECGs. 8. Follow up x-ray chest. Prognosis guarded. Thank you for your referral. Teresa [id number]
[2018-01-14] MEDS: PANTOPRAZOLE 40 MG TABLET (FP) PO SCH (21:26)
[2018-01-14] MEDS: ROSUVASTATIN CA 10 MG TABLET (FP) PO SCH (21:26)
[2018-01-14] MEDS: VANCOMYCIN 1,000 MG in DEXTROSE 5%-WATER - 250 ML IVPB SCH (21:55)
[2018-01-14] MEDS ORDERED: VANCOMYCIN 500 MG in DEXTROSE 5%-WATER - 100 ML IVPB SCH (22:00)
[2018-01-15] MEDS ORDERED: PIPERACILLIN/TAZOBACTAM 4.5 GM VIAL IVPB ONE ×2 (02:24→11:13)
[2018-01-15] MEDS ORDERED: DEXTROSE 5%-WATER 100 ML IVPB ONE ×2 (02:24→11:13)
[2018-01-15] MEDS: PIPERACILLIN/TAZOB 4.5 GM 4.5 GM in DEXTROSE 5%-WATER 100 ML IVPB SCH ×2 (02:41→11:29)
[2018-01-15 06:22] LABS: BASO % 0.4 % (0-2.0); EOS % 4.3 % (0-4.5); HEMATOCRIT 39.8 % (32.4-45.2); HEMOGLOBIN 13.2 GM/dL (10.7-15.3); LYMPH % 7.4 % (8-40); MCH 27.1 pg (25.7-33.7); MCHC 33.3 g/dl (32.0-36.0); MEAN CELL VOLUME 81.5 fl (80-96); MEAN PLT VOLUME 8.4 fl (7.5-11.1); MONO % 18.5 % (3.8-10.2); NEUT % 69.4 % (42.8-82.8); PLATELET COUNT 304 K/MM3 (134-434); RBC 4.88 M/mm3 (3.60-5.2); RDW 15.5 % (11.6-15.6); WHITE BLOOD COUNT 16.9 K/mm3 (4.0-10.0)
[2018-01-15 06:35] LABS: INR 2.58 (0.82-1.09); PROTHROMBIN TIME (PATIENT) 29.1 SEC (9.98-11.88)
[2018-01-15 06:46] LABS: ALBUMIN 3.3 g/dl (3.4-5.0); ANION GAP 6 (8-16); BLOOD UREA NITROGEN 21 mg/dL (7-18); CALCIUM 8.6 mg/dL (8.5-10.1); CHLORIDE 105 mmol/L (98-107); CO2 30 mmol/L (21-32); GLUCOSE,RANDOM 132 mg/dL (74-106); POTASSIUM 4.5 mmol/L (3.5-5.1); SODIUM 141 mmol/L (136-145)
[2018-01-15 06:49] LABS: ALK PHOS 103 U/L (45-117); BILIRUBIN,TOTAL 1.3 mg/dL (0.2-1.0); SGOT/AST 22 U/L (15-37); SGPT/ALT 29 U/L (12-78); TOT PROT 6.6 g/dl (6.4-8.2)
--- NOTE | 2018-01-15 09:32 | PN ---
Physical Exam: SUBJECTIVE: Patient seen and examined at bedside. No acute events. Pt states she feels she is improving. Pt states she spoke with contour sander who wants to try Betapace to resolve her afib so she can have a dental procedure. Stable. Afebrile. Pt mentions today that when she had her stroke, she was placed on antibiotics. Several weeks later, she developed a rash on her face with sloughing skin and a national accounts sales at that time told her that it could have been a delayed-type allergic response to the antibiotics she received several weeks prior. OBJECTIVE: Vital Signs Period Temp Pulse Resp BP Sys/Espinoza Pulse Ox Last 24 Hr 97.5 F-98.2 F 83-109 14-20 107-162/64-89 96-100 GENERAL: The patient is awake, alert, and fully oriented, in no acute distress. HEAD: Normal with no signs of trauma. EYES: sclera anicteric, conjunctiva clear. No ptosis. ENT: oropharynx clear without exudates, moist mucous membranes. NECK: Trachea midline, full range of motion, supple. LUNGS: Breath sounds equal, clear to auscultation bilaterally, no wheezes, no crackles, no accessory muscle use. HEART: Regular rate and rhythm, S1, S2 without murmur, rub or gallop. ABDOMEN: Soft, nontender, nondistended, normoactive bowel sounds, no guarding, no rebound, no hepatosplenomegaly, no masses. EXTREMITIES: Both legs erythema reduced since yesterday. Left beverly lesion with dressing, cdi. 2+ pulses, warm, well-perfused, no edema. NEUROLOGICAL: Cranial nerves II through XII grossly intact. Normal speech, gait not observed. PSYCH: Normal mood, normal affect. SKIN: Warm, dry, normal turgor, no rashes or lesions noted Laboratory Results - last 24 hr 01/14/18 01/14/18 01/14/18 11:50 11:50 11:50 WBC 14.2 H RBC 4.78 Hgb 12.7 Hct 39.2 MCV 82.0 MCH 26.6 MCHC 32.5 RDW 15.6 Plt Count 270 MPV 7.9 Neutrophils % 68.1 Lymphocytes % 8.8 D Monocytes % 20.4 H Eosinophils % 2.2 Basophils % 0.5 PT with INR INR PTT (Actin FS) Sodium 143 Potassium 3.9 Chloride 111 H Carbon Dioxide 26 Anion Gap 6 L BUN 22 H Creatinine 0.7 Creat Clearance w eGFR > 60 Random Glucose 100 Calcium 8.2 L Magnesium Total Bilirubin 0.8 D AST 20 ALT 31 Alkaline Phosphatase 94 Troponin I < 0.02 B-Natriuretic Peptide Total Protein 6.2 L Albumin 3.2 L Cholesterol TSH 1.18 Cancelled 01/14/18 01/14/18 01/15/18 11:50 11:50 05:50 WBC 16.9 H RBC 4.88 Hgb 13.2 Hct 39.8 MCV 81.5 MCH 27.1 MCHC 33.3 RDW 15.5 Plt Count 304 MPV 8.4 Neutrophils % 69.4 Lymphocytes % 7.4 L Monocytes % 18.5 H Eosinophils % 4.3 D Basophils % 0.4 PT with INR 34.70 H INR 3.07 H D PTT (Actin FS) 40.9 H D Sodium Potassium Chloride Carbon Dioxide Anion Gap BUN Creatinine Creat Clearance w eGFR Random Glucose Calcium Magnesium 2.1 Total Bilirubin AST ALT Alkaline Phosphatase Troponin I B-Natriuretic Peptide Total Protein Albumin Cholesterol 149 TSH 01/15/18 01/15/18 01/15/18 05:50 05:50 05:50 WBC RBC Hgb Hct MCV MCH MCHC RDW Plt Count MPV Neutrophils % Lymphocytes % Monocytes % Eosinophils % Basophils % PT with INR 29.10 H INR 2.58 H PTT (Actin FS) Sodium 141 Potassium 4.5 Chloride 105 Carbon Dioxide 30 Anion Gap 6 L BUN 21 H Creatinine 1.0 Creat Clearance w eGFR 52.82 Random Glucose 132 H Calcium 8.6 Magnesium Total Bilirubin 1.3 H D AST 22 ALT 29 Alkaline Phosphatase 103 Troponin I B-Natriuretic Peptide 5334.74 H Total Protein 6.6 Albumin 3.3 L Cholesterol TSH Active Medications Generic Name Dose Route Start Last Admin Trade Name Freq PRN Reason Stop Dose Admin Aspirin 81 mg 01/15/18 10:00 Asa - PO DAILY SHAHRAM Vancomycin HCl 1,000 mg/ 250 mls @ 166.667 mls/hr 01/14/18 21:00 01/14/18 21: 55 Dextrose IVPB 166.667 mls/hr Q12H SHAHRAM Administration Piperacillin Sod/Tazobactam 100 mls @ 200 mls/hr 01/15/18 02:00 01/15/18 02: 41 Sod 4.5 gm/ Dextrose IVPB 200 mls/hr Q8H-IV SHAHRAM Administration Protocol Pantoprazole Sodium 40 mg 01/14/18 22:00 01/14/18 21:26 Protonix - PO 40 mg BID SHAHRAM Administration Rosuvastatin Calcium 10 mg 01/14/18 22:00 01/14/18 21:26 Crestor - PO 10 mg HS SAHHRAM Administration Sotalol HCl 40 mg 01/15/18 10:00 Betapace - PO BID SHAHRAM Warfarin Sodium 2 mg 01/15/18 18:00 Coumadin - PO DAILY@1800 [facility] ASSESSMENT/PLAN: Pt is an 78 y/o F with PMH AF, DVT, CVA, DVT, DIC, Septic shock who presented to ED because of palpitations and was found to have erythematous legs likely cellulitic. #b/l cellulitis -b/l erythema of the legs -still no fever -still no leukocytosis -BCx pending -Vanc day 2 & Jessican day 2 -c/w Vanc. D/c Sean Mckoy MD PGY-1 ID Visit type - Emergency Visit Emergency Visit: No - New Patient This patient is new to me today: No - Critical Care Critical Care patient: No
--- NOTE | 2018-01-15 10:22 | PN ---
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 (short form) - Note 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: 82 year old female admitted with palpitations, known case of persistent atrial fib. 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 Received lasix last night and significant reduction of pedal edema. remains in AF/Flutter. No SOB or chest pain or discomfort reported. Patient refused to consider amiodarone or Eliquis. Active Medications Generic Name Dose Route Start Last Admin Trade Name Freq PRN Reason Stop Dose Admin Aspirin 81 mg 01/15/18 10:00 Asa - PO DAILY SHAHRAM Piperacillin Sod/Tazobactam 100 mls @ 200 mls/hr 01/15/18 02:00 01/15/18 02: 41 Sod 4.5 gm/ Dextrose IVPB 200 mls/hr Q8H-IV SHAHRAM Administration Protocol Pantoprazole Sodium 40 mg 01/14/18 22:00 01/14/18 21:26 Protonix - PO 40 mg BID SHAHRAM Administration Rosuvastatin Calcium 10 mg 01/14/18 22:00 01/14/18 21:26 Crestor - PO 10 mg HS SHAHRAM Administration Sotalol HCl 40 mg 01/15/18 10:00 Betapace - PO BID SHARHAM Warfarin Sodium 2 mg 01/15/18 18:00 Coumadin - PO DAILY@1800 SHAHRAM 82 year old female in no distress, no pallor, cyanosis, clubbing or jaundice. Last Vital Signs Temp Pulse Resp BP Pulse Ox 98.0 F 95 H 14 107/78 96 01/15/18 06:00 01/15/18 08:21 01/15/18 08:21 01/15/18 08:21 01/14/18 17:45 Intake & Output 01/12/18 01/13/18 01/14/18 01/15/18 23:59 23:59 23:59 23:59 Intake Total 20 670 Output Total 1800 Balance 20 -1130 Weight 120 lb NECK: Supple, no JVD, -ve HJR, carotids 2+.no bruits. HEART: PMI in the 5th ICS, no heaves or thrills. No murmur or gallops heard. LUNGS: Clear on auscultation. ABDOMEN: Soft ,nontender, no organomegaly, incisional hernia. EXTREMITIES: !+ right LLE edema, trace left LLE edema. decrease in reddness and hyperemia of the legs. CBC, BMP 01/15/18 05:50 01/15/18 05:50 IMPRESSIONS: 1. Atrial fib/flutter with controlled ventricular response. 2. CHF, presently compensated, related to LV diastolic dysfunction. 3. Hypertension,HVCD. 4. Hypercholesterolemia. 5. S/p CVA. RECOMMENDATIONS: 1.Add lasix 20mg. po daily. 2.Add BOBY or ARB. 3.Daily weights. 4.Echocardiogram. 5.Daily INR.
[2018-01-15] MEDS: VANCOMYCIN 1,000 MG in DEXTROSE 5%-WATER - 250 ML IVPB SCH ×2 (11:10→19:14)
[2018-01-15] MEDS ORDERED: PT OWN MED DRAWER 7, Y5N ONE (11:13)
[2018-01-15] MEDS: SOTALOL HCL 80 MG TABLET (FP) PO SCH ×2 (11:32→21:10)
[2018-01-15] MEDS: ASPIRIN 81 MG CHEWABLE TABLETS PO SCH (11:33)
[2018-01-15] MEDS: PANTOPRAZOLE 40 MG TABLET (FP) PO SCH ×2 (11:33→21:11)
--- NOTE | 2018-01-15 11:53 | PN ---
Teaching Attending Note Name of Resident: Rosendo Mckoy ATTENDING PHYSICIAN STATEMENT I saw and evaluated the patient. I reviewed the resident's note and discussed the case with the resident. I agree with the resident's findings and plan as documented. SUBJECTIVE: alert no fevers legs less red OBJECTIVE: Vital Signs Period Temp Pulse Resp BP Sys/Espinoza Pulse Ox Last 24 Hr 97.5 F-98.0 F 83-109 14-20 107-162/64-89 96-98 cor-irreg, tachy lungs clear abd soft,nt ext less erythema CBC, BMP 01/15/18 05:50 01/15/18 05:50 ASSESSMENT AND PLAN: bilateral cellulitis- continue vancomycin d/c zosyn f/uziel cultures afib
--- NOTE | 2018-01-15 14:52 | PN ---
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 (short form) - Note 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: Subjective: The patient was seen and examined at the bedside, she reports feeling better. She states that her lower extremity erythema has improved Current Medications Generic Name Dose Route Start Last Admin Trade Name Hipolito PRN Reason Stop Dose Admin Aspirin 81 mg 01/15/18 10:00 01/15/18 11:33 Asa - PO 81 mg DAILY SHAHRAM Administration Vancomycin HCl 1,000 mg/ 250 mls @ 200 mls/hr 01/15/18 20:00 Dextrose IVPB DAILY@2000 SHAHRAM Pantoprazole Sodium 40 mg 01/14/18 22:00 01/15/18 11:33 Protonix - PO 40 mg BID SHAHRAM Administration Rosuvastatin Calcium 10 mg 01/14/18 22:00 01/14/18 21:26 Crestor - PO 10 mg HS SHAHRAM Administration Sotalol HCl 40 mg 01/15/18 10:00 01/15/18 11:32 Betapace - PO 40 mg BID SHAHRAM Administration Warfarin Sodium 2 mg 01/15/18 18:00 Coumadin - PO DAILY@1800 SHAHRAM Objective: Vital Signs Period Temp Pulse Resp BP Sys/Espinoza Pulse Ox Last 24 Hr 97.5 F-98.0 F 83-109 14-20 107-162/47-89 96-98 Physical Exam: General: NAD, A&Ox3 Lungs: CTA bilaterlaly Heart: Irregular pulse Abd: Soft, non-tender, non-distended. Normoactive bowel sounds Ext: B/l lower extremity erythema improving, edema CBCD WBC 16.9 K/mm3 (4.0-10.0) H 01/15/18 05:50 RBC 4.88 M/mm3 (3.60-5.2) 01/15/18 05:50 Hgb 13.2 GM/dL (10.7-15.3) 01/15/18 05:50 Hct 39.8 % (32.4-45.2) 01/15/18 05:50 MCV 81.5 fl (80-96) 01/15/18 05:50 MCHC 33.3 g/dl (32.0-36.0) 01/15/18 05:50 RDW 15.5 % (11.6-15.6) 01/15/18 05:50 Plt Count 304 K/MM3 (134-434) 01/15/18 05:50 MPV 8.4 fl (7.5-11.1) 01/15/18 05:50 CMP Sodium 141 mmol/L (136-145) 01/15/18 05:50 Potassium 4.5 mmol/L (3.5-5.1) 01/15/18 05:50 Chloride 105 mmol/L (98-107) 01/15/18 05:50 Carbon Dioxide 30 mmol/L (21-32) 01/15/18 05:50 Anion Gap 6 (8-16) L 01/15/18 05:50 BUN 21 mg/dL (7-18) H 01/15/18 05:50 Creatinine 1.0 mg/dL (0.55-1.02) 01/15/18 05:50 Creat Clearance w eGFR 52.82 (>60) 01/15/18 05:50 Random Glucose 132 mg/dL (74-106) H 01/15/18 05:50 Calcium 8.6 mg/dL (8.5-10.1) 01/15/18 05:50 Total Bilirubin 1.3 mg/dL (0.2-1.0) H D 01/15/18 05:50 AST 22 U/L (15-37) 01/15/18 05:50 ALT 29 U/L (12-78) 01/15/18 05:50 Alkaline Phosphatase 103 U/L (45-117) 01/15/18 05:50 Total Protein 6.6 g/dl (6.4-8.2) 01/15/18 05:50 Albumin 3.3 g/dl (3.4-5.0) L 01/15/18 05:50 CARDIAC ENZYMES Troponin I < 0.02 ng/ml (0.00-0.05) 01/14/18 11:50 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 Plan: 1) A.flutter with palpitations - Betapace 40mg bid per cardiology - On Coumadin, INR therapeutic, resume Coumadin 2mg po hs - Cardiac monitoring - Appreciate cardiology consult 2) B/l lower extremity cellulitis - WBC trending up - Continue Vancomycin - Blood cultures with NGTD - Patient refusing lower extremity doppler to r/o dvt - Appreciate ID consult 3) F/E/N: - Monitor electrolytes - Sodium controlled diet 4) Prophylaxis: - INR therapeutic on Coumadin 5) Dispo: - Once condition improves CODE STATUS: FULL CODE Visit type - Emergency Visit Emergency Visit: Yes ED Registration Date: 01/14/18 Care time: The patient presented to the Emergency Department on the above date and was hospitalized for further evaluation of their emergent condition. - New Patient This patient is new to me today: No - Critical Care Critical Care patient: No
[2018-01-15] MEDS ORDERED: PIPERACILLIN/TAZOB 4.5 GM 4.5 GM in DEXTROSE 5%-WATER 100 ML IVPB SCH (18:00)
[2018-01-15] MEDS: WARFARIN NA 2 MG TABLET (UD) PO SCH (18:07)
[2018-01-15] MEDS: ROSUVASTATIN CA 10 MG TABLET (FP) PO SCH (21:10)
[2018-01-15] MEDS ORDERED: VANCOMYCIN 500 MG/100 ML PRE-DOCKED IVPB SCH (22:00)
[2018-01-16 06:37] LABS: BASO % 0.3 % (0-2.0); EOS % 3.6 % (0-4.5); HEMATOCRIT 37.1 % (32.4-45.2); HEMOGLOBIN 12.1 GM/dL (10.7-15.3); MCH 26.6 pg (25.7-33.7); MCHC 32.6 g/dl (32.0-36.0); MEAN CELL VOLUME 81.8 fl (80-96); MEAN PLT VOLUME 8.8 fl (7.5-11.1); MONO % 18.7 % (3.8-10.2); NEUT % 71.4 % (42.8-82.8); PLATELET COUNT 262 K/MM3 (134-434); RBC 4.54 M/mm3 (3.60-5.2); RDW 15.7 % (11.6-15.6); WHITE BLOOD COUNT 15.3 K/mm3 (4.0-10.0)
[2018-01-16 06:48] LABS: INR 2.42 (0.82-1.09); PROTHROMBIN TIME (PATIENT) 27.3 SEC (9.98-11.88)
--- NOTE | 2018-01-16 06:49 | PN ---
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 (short form) - Note 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: ID IN Telemetry for rapid atrial fibrillation Remains afebrile Still on Vancomycin Microbiology Selected Entries 01/16/18 06:00 Temperature 98.1 F Pulse Rate 96 H Respiratory 32 H Rate Blood Pressure 157/74 Laboratory Tests 01/14/18 11:50 WBC 14.2 H Hct 39.2 Plt Count 270 Legs Less swollen related to keeping them elevated Erythema about the same Sloughing of skin left leg Microbiology 01/14/18 14:30 Blood - Peripheral Venous Blood Culture - Preliminary NO GROWTH OBTAINED AFTER 24 HOURS, INCUBATION TO CONTINUE FOR 4 DAYS. 01/14/18 14:30 Blood - Peripheral Venous Blood Culture - Preliminary NO GROWTH OBTAINED AFTER 24 HOURS, INCUBATION TO CONTINUE FOR 4 DAYS. Assessment Continue to elevated legs Would stop Vancomcyin Ask Dr Webster to evaluate LLE wounds José Luis SRINIVASAN Problem List - Problems (1) Cellulitis Code(s): L03.90 - CELLULITIS, UNSPECIFIED Qualifiers: Site of cellulitis: extremity Site of cellulitis of extremity: lower extremity Laterality: unspecified laterality Qualified Code(s): L03.119 - Cellulitis of unspecified part of limb (2) Palpitations Code(s): R00.2 - PALPITATIONS (3) Afib Code(s): I48.91 - UNSPECIFIED ATRIAL FIBRILLATION
[2018-01-16 07:11] LABS: ALBUMIN 2.7 g/dl (3.4-5.0); ANION GAP 5 (8-16); BLOOD UREA NITROGEN 21 mg/dL (7-18); CALCIUM 7.8 mg/dL (8.5-10.1); CHLORIDE 110 mmol/L (98-107); CO2 28 mmol/L (21-32); CREATININE 0.9 mg/dL (0.55-1.02); GLUCOSE,RANDOM 128 mg/dL (74-106); POTASSIUM 3.9 mmol/L (3.5-5.1); SGOT/AST 15 U/L (15-37); SGPT/ALT 22 U/L (12-78); SODIUM 143 mmol/L (136-145)
[2018-01-16 07:13] LABS: ALK PHOS 91 U/L (45-117); BILIRUBIN,TOTAL 0.6 mg/dL (0.2-1.0); TOT PROT 5.5 g/dl (6.4-8.2)
[2018-01-16] MEDS ORDERED: morphine SULFATE 4 MG/ML VIAL IVPUSH PRN (07:41)
[2018-01-16] MEDS: ACETAMINOPHEN 325 MG TABLET (FP) PO PRN (08:13)
[2018-01-16] MEDS ORDERED: ACETAMINOPHEN 325 MG TABLET (FP) ONE (08:58)
[2018-01-16] MEDS: ASPIRIN 81 MG CHEWABLE TABLETS PO SCH (10:03)
[2018-01-16] MEDS: SOTALOL HCL 80 MG TABLET (FP) PO SCH ×2 (10:03→21:38)
[2018-01-16] MEDS: PANTOPRAZOLE 40 MG TABLET (FP) PO SCH ×2 (10:04→21:38)
--- NOTE | 2018-01-16 11:17 | PN ---
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 (short form) - Note 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: 82 year old female admitted with palpitations, known case of persistent atrial fib. 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 Patient is out of bed in a chair, lethargic but alert.Has not been able to properly sleep while in the hospital. Remains in atrial fibrillation with controlled ventricular response. Both lower extremities have improved and there is residual redness and no further edema. Denies having chest pain or discomfort. No shortness of breath. Active Medications Generic Name Dose Route Start Last Admin Trade Name Freq PRN Reason Stop Dose Admin Acetaminophen 650 mg 01/16/18 07:41 01/16/18 08:13 Tylenol - PO 650 mg Q6H PRN Administration PAIN LEVEL 1-5 Aspirin 81 mg 01/15/18 10:00 01/16/18 10:03 Asa - PO 81 mg DAILY SHAHRAM Administration Vancomycin HCl 1,000 mg/ 250 mls @ 200 mls/hr 01/15/18 20:00 01/15/18 19:14 Dextrose IVPB 200 mls/hr DAILY@2000 SHAHRAM Administration Morphine Sulfate 1 mg 01/16/18 07:41 Morphine Sulfate IVPUSH Q4H PRN PAIN LEVEL 6-10 Pantoprazole Sodium 40 mg 01/14/18 22:00 01/16/18 10:04 Protonix - PO 40 mg BID SHAHRAM Administration Rosuvastatin Calcium 10 mg 01/14/18 22:00 01/15/18 21:10 Crestor - PO 10 mg HS SHAHRAM Administration Sotalol HCl 40 mg 01/15/18 10:00 01/16/18 10:03 Betapace - PO 40 mg BID SHAHRAM Administration Warfarin Sodium 2 mg 01/15/18 18:00 01/15/18 18:07 Coumadin - PO 2 mg DAILY@1800 SHAHRAM Administration 82 year old female in no distress, no pallor, cyanosis, clubbing or jaundice. Last Vital Signs Temp Pulse Resp BP Pulse Ox 98.1 F 96 H 32 H 157/74 92 L 01/16/18 06:00 01/16/18 06:00 01/16/18 06:00 01/16/18 06:00 01/15/18 19:51 Intake & Output 01/13/18 01/14/18 01/15/1801/16/18 23:59 23:59 23:59 23:59 Intake Total 20 1170 250 Output Total 1800 Balance 20 -630 250 Weight 120 lb NECK: Supple, no JVD, -ve HJR, carotids 2+.no bruits. HEART: PMI in the 5th ICS, no heaves or thrills. No murmur or gallops heard. LUNGS: Clear on auscultation. ABDOMEN: Soft, nontender, no organomegaly, incisional hernia. EXTREMITIES: 1+ right LLE edema, trace left LLE edema. decrease in redness and hyperemia of the legs. CBC, BMP 01/16/18 06:05 01/16/18 06:05 IMPRESSIONS: 1. Atrial fib/flutter with controlled ventricular response. 2. CHF, presently compensated, related to LV diastolic dysfunction. 3. Hypertension,HVCD. 4. Hypercholesterolemia. 5. S/p CVA. 6. Lethargy partly related to sleep deprivation. RECOMMENDATIONS: 1.Add lasix 20mg. po daily. 2.Add BOBY or ARB. 3.Daily weights. 4.Echocardiogram. 5.Daily INR. 6. Discharge if medically stable on 01/17/18.
--- NOTE | 2018-01-16 12:28 | CONSULT ---
- Consultation REQUESTING PROVIDER: Ty Webster CONSULT REQUEST: We have been asked to surgically evaluate this patient for LLE wounds and cellulitis PCP: Eryn Pina HPI: Called to eval 82 yo female w/ PMHx as noted below. Admitted with bilat LE cellulitis and heart palpitations. Cardio following and managing her rapid Afib. According to previous notes, cellulitis present since her last admission in August. She has 2 ulcers to her left leg that she has sumeet managing at home bu placing duoderm on. Currently, denies CP, SOB, BELTRAN, palpitations, n/v/f/c, dysuria, hematuria PMHx: HTN, hyperlipidemia, Afib, CVA x3 (last 08/2017), DVT, HTN, DIC, Septic shock, kidney stones PSHx: Hysterectomy Home Meds Aspirin [ASA -] 81 mg PO DAILY #0 tab.chew 09/22/17 Furosemide [Lasix] 20 mg PO ASDIR 01/14/18 Hydrochlorothiazide [Hctz -] 12.5 mg PO DAILY 01/14/18 Nebivolol HCl [Bystolic] 10 mg PO BID 01/14/18 Omeprazole 40 mg PO BID 01/14/18 Rosuvastatin Calcium [Crestor] 10 mg PO DAILY 01/14/18 Warfarin Na [Coumadin -] 2 mg PO DAILY@1800 01/14/18 Allergies: NKDA ROS: CONSTITUTIONAL: Absent: diaphoresis, generalized weakness, malaise, loss of appetite, weight change CARDIOVASCULAR: Absent: syncope, lightheadedness, peripheral edema RESPIRATORY: Absent: cough, wheezing, stridor, hemoptysis GASTROINTESTINAL:Absent: abdominal pain, abdominal distension, melena, hematochezia GENITOURINARY: Absent: frequency, urgency, hesitancy, flank pain, genital pain MUSCULOSKELETAL: Absent: myalgia, arthralgia, joint swelling, back pain, neck pain SKIN: Absent: rash, itching, pallor HEMATOLOGIC/IMMUNOLOGIC: Absent: easy bleeding, easy bruising, lymphadenopathy NEUROLOGIC: Absent: GAYLE, focal weakness, paresthesias, dizziness, unsteady gait, seizure, mental status changes, bladder or bowel incontinence PSYCHIATRIC: Absent: anxiety, depression, suicidal or homicidal ideation, hallucinations. PE: GENERAL: nad. HEAD: NC. AT. EYES: PERRL, sclera anicteric, conjunctiva clear. NECK: Normal ROM, supple without lymphadenopathy, JVD, or masses. LUNGS: cta bilat HEART: afib (rate controlled) ABD: Soft, nt. nd. MUSCULOSKELETAL: Normal ROM at all joints. No bony deformities or tenderness. No CVAT LE: 2+ pulses, warm, well-perfused. No calf tenderness. No peripheral edema. bilat LE mild erythema. LLE anterior aspect ~ 2.54 cm x 2.54 cm (Stage 1/2, clean). Lateral aspect ~ 7mm round. Stage 1, clean Last Vital Signs Temp Pulse Resp BP Pulse Ox 98.5 F 94 H 20 128/66 96 01/16/18 10:00 01/16/18 10:00 01/16/18 10:00 01/16/18 10:00 01/16/18 09:00 WBC TREND 01/14/18 01/15/18 01/16/18 11:50 05:50 06:05 WBC 14.2 H 16.9 H 15.3 H Microbiology 01/14/18 14:30 Peripheral Venous Blood Culture - Prelim NO GROWTH AFTER 24 HOURS, INCUBATION TO CONTINUE FOR 4 DAYS. Problem List - Problems (1) Cellulitis Assessment/Plan: Wounds are clean. LE cellulitis improving. Cont IV abx Trend WBC Afeb Dressing changes as ordered Elevate legs while patient in bed or seated in chair. No surgical intervention needed. Above plan discussed with Darin and agrees. On behalf of Dr. Webster, thank you for the opportunity to participate in your patient's care. Code(s): L03.90 - CELLULITIS, UNSPECIFIED Qualifiers: Site of cellulitis: extremity Site of cellulitis of extremity: lower extremity Laterality: unspecified laterality Qualified Code(s): L03.119 - Cellulitis of unspecified part of limb (2) Afib Code(s): I48.91 - UNSPECIFIED ATRIAL FIBRILLATION Visit type - Case Type Case Type: ED Admission - New patient This patient is new to me today: Yes Date on this admission: 01/16/18
--- NOTE | 2018-01-16 15:14 | PN ---
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 (short form) - Note 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: Subjective: The patient was seen and examined at the bedside, she is lethargic but wakes up to verbal stimuli Current Medications Generic Name Dose Route Start Last Admin Trade Name Freq PRN Reason Stop Dose Admin Acetaminophen 650 mg 01/16/18 07:41 01/16/18 08:13 Tylenol - PO 650 mg Q6H PRN Administration PAIN LEVEL 1-5 Aspirin 81 mg 01/15/18 10:00 01/16/18 10:03 Asa - PO 81 mg DAILY SHAHRAM Administration Vancomycin HCl 1,000 mg/ 250 mls @ 200 mls/hr 01/15/18 20:00 01/15/18 19:14 Dextrose IVPB 200 mls/hr DAILY@2000 SHAHRAM Administration Morphine Sulfate 1 mg 01/16/18 07:41 Morphine Sulfate IVPUSH Q4H PRN PAIN LEVEL 6-10 Pantoprazole Sodium 40 mg 01/14/18 22:00 01/16/18 10:04 Protonix - PO 40 mg BID SHAHRAM Administration Rosuvastatin Calcium 10 mg 01/14/18 22:00 01/15/18 21:10 Crestor - PO 10 mg HS SHAHRAM Administration Sotalol HCl 40 mg 01/15/18 10:00 01/16/18 10:03 Betapace - PO 40 mg BID SHAHRAM Administration Warfarin Sodium 2 mg 01/15/18 18:00 01/15/18 18:07 Coumadin - PO 2 mg DAILY@1800 SHAHRAM Administration Objective: Vital Signs Period Temp Pulse Resp BP Sys/Espinoza Pulse Ox Last 24 Hr 97.7 F-98.5 F 85-96 15-32 105-157/66-91 92-96 Physical Exam: General: NAD, A&Ox3 Lungs: CTA bilaterlaly Heart: Irregular pulse Abd: Soft, non-tender, non-distended. Normoactive bowel sounds Ext: B/l lower extremity erythema improving, edema CBCD WBC 15.3 K/mm3 (4.0-10.0) H 01/16/18 06:05 RBC 4.54 M/mm3 (3.60-5.2) 01/16/18 06:05 Hgb 12.1 GM/dL (10.7-15.3) 01/16/18 06:05 Hct 37.1 % (32.4-45.2) 01/16/18 06:05 MCV 81.8 fl (80-96) 01/16/18 06:05 MCHC 32.6 g/dl (32.0-36.0) 01/16/18 06:05 RDW 15.7 % (11.6-15.6) H 01/16/18 06:05 Plt Count 262 K/MM3 (134-434) 01/16/18 06:05 MPV 8.8 fl (7.5-11.1) 01/16/18 06:05 CMP Sodium 143 mmol/L (136-145) 01/16/18 06:05 Potassium 3.9 mmol/L (3.5-5.1) 01/16/18 06:05 Chloride 110 mmol/L (98-107) H 01/16/18 06:05 Carbon Dioxide 28 mmol/L (21-32) 01/16/18 06:05 Anion Gap 5 (8-16) L 01/16/18 06:05 BUN 21 mg/dL (7-18) H 01/16/18 06:05 Creatinine 0.9 mg/dL (0.55-1.02) 01/16/18 06:05 Creat Clearance w eGFR 59.65 (>60) 01/16/18 06:05 Random Glucose 128 mg/dL (74-106) H 01/16/18 06:05 Calcium 7.8 mg/dL (8.5-10.1) L 01/16/18 06:05 Total Bilirubin 0.6 mg/dL (0.2-1.0) D 01/16/18 06:05 AST 15 U/L (15-37) 01/16/18 06:05 ALT 22 U/L (12-78) 01/16/18 06:05 Alkaline Phosphatase 91 U/L (45-117) 01/16/18 06:05 Total Protein 5.5 g/dl (6.4-8.2) L 01/16/18 06:05 Albumin 2.7 g/dl (3.4-5.0) L 01/16/18 06:05 CARDIAC ENZYMES Troponin I < 0.02 ng/ml (0.00-0.05) 01/14/18 11:50 Microbiology 01/14/18 14:30 Blood - Peripheral Venous Blood Culture - Preliminary NO GROWTH OBTAINED AFTER 48 HOURS, INCUBATION TO CONTINUE FOR 3 DAYS. 01/14/18 14:30 Blood - Peripheral Venous Blood Culture - Preliminary NO GROWTH OBTAINED AFTER 48 HOURS, INCUBATION TO CONTINUE FOR 3 DAYS. 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 Plan: 1) A.flutter with palpitations - Betapace 40mg bid per cardiology - On Coumadin, INR therapeutic, Coumadin 2mg po hs - Cardiac monitoring - Appreciate cardiology consult 2) B/l lower extremity cellulitis - WBC trending up - Continue Vancomycin - Blood cultures with NGTD - Lower extremity doppler negative for DVT - Appreciate ID consult 3) F/E/N: - Monitor electrolytes - Sodium controlled diet 4) Prophylaxis: - INR therapeutic on Coumadin 5) Dispo: - Once condition improves CODE STATUS: FULL CODE Visit type - Emergency Visit Emergency Visit: Yes ED Registration Date: 01/15/18 Care time: The patient presented to the Emergency Department on the above date and was hospitalized for further evaluation of their emergent condition. - New Patient This patient is new to me today: No - Critical Care Critical Care patient: No
[2018-01-16] MEDS ORDERED: PT OWN MED DRAWER 7, Y5N ONE ×2 (19:34→21:37)
[2018-01-16] MEDS: WARFARIN NA 2 MG TABLET (UD) PO SCH (19:36)
[2018-01-16] MEDS: VANCOMYCIN 1,000 MG in DEXTROSE 5%-WATER - 250 ML IVPB SCH (19:36)
[2018-01-16] MEDS: ROSUVASTATIN CA 10 MG TABLET (FP) PO SCH (21:38)
[2018-01-17] MEDS: ACETAMINOPHEN 325 MG TABLET (FP) PO PRN (05:16)
[2018-01-17 06:50] LABS: HEMATOCRIT 37.1 % (32.4-45.2); HEMOGLOBIN 12.2 GM/dL (10.7-15.3); MCH 26.9 pg (25.7-33.7); MCHC 32.9 g/dl (32.0-36.0); MEAN CELL VOLUME 81.8 fl (80-96); MEAN PLT VOLUME 8.9 fl (7.5-11.1); PLATELET COUNT 267 K/MM3 (134-434); RBC 4.54 M/mm3 (3.60-5.2); RDW 15.3 % (11.6-15.6); WHITE BLOOD COUNT 15.9 K/mm3 (4.0-10.0)
[2018-01-17 06:55] LABS: INR 2.28 (0.82-1.09); PROTHROMBIN TIME (PATIENT) 25.8 SEC (9.98-11.88)
[2018-01-17 07:38] LABS: ANION GAP 5 (8-16); BLOOD UREA NITROGEN 19 mg/dL (7-18); CALCIUM 8.1 mg/dL (8.5-10.1); CHLORIDE 109 mmol/L (98-107); CO2 28 mmol/L (21-32); GLUCOSE,RANDOM 137 mg/dL (74-106); POTASSIUM 4.3 mmol/L (3.5-5.1); SODIUM 142 mmol/L (136-145)
[2018-01-17] MEDS: LISINOPRIL 5 MG TABLET (FP) PO SCH (09:49)
[2018-01-17] MEDS: ASPIRIN 81 MG CHEWABLE TABLETS PO SCH (09:49)
[2018-01-17] MEDS: PANTOPRAZOLE 40 MG TABLET (FP) PO SCH ×2 (09:49→20:59)
[2018-01-17] MEDS: SOTALOL HCL 80 MG TABLET (FP) PO SCH ×2 (09:50→20:59)
--- NOTE | 2018-01-17 10:22 | PN ---
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 (short form) - Note 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: 82 year old female admitted with palpitations, known case of persistent atrial fib. 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 No SOB,chest pain or discomfort. More alert, remains in atrial fib. with controlled ventricular response. Active Medications Generic Name Dose Route Start Last Admin Trade Name Freq PRN Reason Stop Dose Admin Acetaminophen 650 mg 01/16/18 07:41 01/17/18 05:16 Tylenol - PO 650 mg Q6H PRN Administration PAIN LEVEL 1-5 Aspirin 81 mg 01/15/18 10:00 01/17/18 09:49 Asa - PO 81 mg DAILY SHAHRAM Administration Vancomycin HCl 1,000 mg/ 250 mls @ 200 mls/hr 01/15/18 20:00 01/16/18 19:36 Dextrose IVPB 200 mls/hr DAILY@2000 SHAHRAM Administration Lisinopril 5 mg 01/17/18 10:00 01/17/18 09:49 Prinivil PO 5 mg DAILY SHAHRAM Administration Morphine Sulfate 1 mg 01/16/18 07:41 Morphine Sulfate IVPUSH Q4H PRN PAIN LEVEL 6-10 Pantoprazole Sodium 40 mg 01/14/18 22:00 01/17/18 09:49 Protonix - PO 40 mg BID SHAHRAM Administration Rosuvastatin Calcium 10 mg 01/14/18 22:00 01/16/18 21:38 Crestor - PO 10 mg HS SHAHRAM Administration Sotalol HCl 40 mg 01/15/18 10:00 01/17/18 09:50 Betapace - PO 40 mg BID SHAHRAM Administration Warfarin Sodium 2 mg 01/15/18 18:00 01/16/18 19:36 Coumadin - PO 2 mg DAILY@1800 SHAHRAM Administration 82 year old female in no distress, no pallor, cyanosis, clubbing or jaundice. L Last Vital Signs Temp Pulse Resp BP Pulse Ox 97.6 F 88 18 160/96 96 01/17/18 09:51 01/17/18 09:51 01/17/18 09:51 01/17/18 09:51 01/16/18 09:00 Intake & Output 01/14/18 01/15/18 01/16/18 01/17/18 23:59 23:59 23:59 23:59 Intake Total 20 1170 640 555 Output Total 1800 Balance 20 -630 640 555 Weight 120 lb NECK: Supple, no JVD, -ve HJR, carotids 2+.no bruits. HEART: PMI in the 5th ICS, no heaves or thrills. No murmur or gallops heard. LUNGS: Clear on auscultation. ABDOMEN: Soft, nontender, no organomegaly, incisional hernia. EXTREMITIES: 1+ right LLE edema, trace left LLE edema. decrease in redness and hyperemia of the legs, left less than right. CBC, BMP 01/17/18 06:03 01/17/18 06:03 INR, PTT INR 2.28 (0.82-1.09) H 01/17/18 06:03 IMPRESSIONS: 1. Atrial fib/flutter with controlled ventricular response. 2. CHF, presently compensated, related to LV diastolic dysfunction. 3. Hypertension,HVCD. 4. Hypercholesterolemia. 5. S/p CVA. 6. Lethargy partly related to sleep deprivation. RECOMMENDATIONS: 1.Add lasix 20mg. po daily. 2.Increase dose of BOBY as BP is elevated. 3.Daily weights. 4.Echocardiogram. 5.Daily INR. 6.Betapace is being increased to 80mg. Q12H. 7.Increase ambulation with assistance.
--- NOTE | 2018-01-17 10:42 | PN ---
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, Physician Chief Complaint: ID Still on Vancomycin - Current Medication List Current Medications: Active Medications Acetaminophen (Tylenol -) 650 mg PO Q6H PRN PRN Reason: PAIN LEVEL 1-5 Last Admin: 01/17/18 05:16 Dose: 650 mg Aspirin (Asa -) 81 mg PO DAILY [facility] Last Admin: 01/17/18 09:49 Dose: 81 mg Vancomycin HCl 1,000 mg/ (Dextrose) 250 mls @ 200 mls/hr IVPB DAILY@2000 [facility] Last Admin: 01/16/18 19:36 Dose: 200 mls/hr Lisinopril (Prinivil) 5 mg PO DAILY [facility] Last Admin: 01/17/18 09:49 Dose: 5 mg Morphine Sulfate (Morphine Sulfate) 1 mg IVPUSH Q4H PRN PRN Reason: PAIN LEVEL 6-10 Pantoprazole Sodium (Protonix -) 40 mg PO BID [facility] Last Admin: 01/17/18 09:49 Dose: 40 mg Rosuvastatin Calcium (Crestor -) 10 mg PO HS [facility] Last Admin: 01/16/18 21:38 Dose: 10 mg Sotalol HCl (Betapace -) 80 mg PO BID [facility] Warfarin Sodium (Coumadin -) 2 mg PO DAILY@1800 [facility] Last Admin: 01/16/18 19:36 Dose: 2 mg - Objective Vital Signs: Vital Signs Temperature 97.6 F 01/17/18 09:51 Pulse Rate 88 01/17/18 09:51 Respiratory Rate 18 01/17/18 09:51 Blood Pressure 160/96 01/17/18 09:51 O2 Sat by Pulse Oximetry (%) 96 01/16/18 09:00 Constitutional: Yes: Well Nourished, No Distress HENT: Yes: WNL, Atraumatic Neck: Yes: WNL, Supple Cardiovascular: Yes: Regular Rate and Rhythm, S1, S2 Respiratory: Yes: WNL, Regular, CTA Bilaterally Gastrointestinal: Yes: WNL, Normal Bowel Sounds, Soft. No: Tenderness, Tenderness, Epigastrium Extremities: Yes: Erythema Edema: Yes Labs: CBC, BMP 01/17/18 06:03 01/17/18 06:03 INR, PTT INR 2.28 (0.82-1.09) H 01/17/18 06:03 Problem List - Problems (1) Cellulitis Code(s): L03.90 - CELLULITIS, UNSPECIFIED Qualifiers: Site of cellulitis: extremity Site of cellulitis of extremity: lower extremity Laterality: unspecified laterality Qualified Code(s): L03.119 - Cellulitis of unspecified part of limb (2) Palpitations Code(s): R00.2 - PALPITATIONS (3) Afib Code(s): I48.91 - UNSPECIFIED ATRIAL FIBRILLATION Assessment/Plan Microbiology 01/14/18 14:30 Blood - Peripheral Venous Blood Culture - Preliminary NO GROWTH OBTAINED AFTER 48 HOURS, INCUBATION TO CONTINUE FOR 3 DAYS. 01/14/18 14:30 Blood - Peripheral Venous Blood Culture - Preliminary NO GROWTH OBTAINED AFTER 48 HOURS, INCUBATION TO CONTINUE FOR 3 DAYS. Laboratory Tests 01/17/18 01/17/18 06:03 06:03 WBC 15.9 H Hgb 12.2 Plt Count 267 BUN 19 H Creatinine 1.0 Assessment LE edema much improved along with that redness has improved. Plan Will stop Vancomycin Could give Keflex 50mg bid 5 days José Luis SRINIVASAN
[2018-01-17] MEDS ORDERED: SOTALOL HCL 80 MG TABLET (FP) PO ONE (12:45)
--- NOTE | 2018-01-17 16:21 | PN ---
Physical Exam: SUBJECTIVE: Patient seen and examined at the bedside. Denies chest pain, or palpitations. States her legs are improving. Does not want a visiting nurse on d/c. OBJECTIVE: Vital Signs Period Temp Pulse Resp BP Sys/Espinoza Pulse Ox Last 24 Hr 97.6 F-98.5 F 86-102 17-20 111-160/58-96 GENERAL: The patient is awake, alert, and fully oriented, in no acute distress. HEAD: Normal with no signs of trauma. EYES: PERRL, extraocular movements intact, sclera anicteric, conjunctiva clear. No ptosis. ENT: Ears normal, nares patent, oropharynx clear without exudates, moist mucous membranes. NECK: Trachea midline, full range of motion, supple. LUNGS: Breath sounds diminished, clear bilaterally HEART: afib on residential monitor, controlled ABDOMEN: Soft, nontender, nondistended, normoactive bowel sounds, no guarding EXTREMITIES: no edema. NEUROLOGICAL: Normal speech, gait not observed. PSYCH: Normal mood, normal affect. SKIN: bilateral lower ext cellulitis, was on vanco, now converted to Keflex Laboratory Results - last 24 hr 01/17/18 01/17/18 01/17/18 06:03 06:03 06:03 WBC 15.9 H RBC 4.54 Hgb 12.2 Hct 37.1 MCV 81.8 MCH 26.9 MCHC 32.9 RDW 15.3 Plt Count 267 MPV 8.9 PT with INR 25.80 H INR 2.28 H Sodium 142 Potassium 4.3 Chloride 109 H Carbon Dioxide 28 Anion Gap 5 L BUN 19 H Creatinine 1.0 Random Glucose 137 H Calcium 8.1 L Active Medications Generic Name Dose Route Start Last Admin Trade Name Freq PRN Reason Stop Dose Admin Acetaminophen 650 mg 01/16/18 07:41 01/17/18 05:16 Tylenol - PO 650 mg Q6H PRN Administration PAIN LEVEL 1-5 Aspirin 81 mg 01/15/18 10:00 01/17/18 09:49 Asa - PO 81 mg DAILY SHAHRAM Administration Cephalexin HCl 500 mg 01/17/18 22:00 Keflex - PO BID SHAHRAM Lisinopril 5 mg 01/17/18 10:00 01/17/18 09:49 Prinivil PO 5 mg DAILY SHAHRAM Administration Morphine Sulfate 1 mg 04/18/18 07:41 Morphine Sulfate IVPUSH Q4H PRN PAIN LEVEL 6-10 Pantoprazole Sodium 40 mg 01/14/18 22:00 01/17/18 09:49 Protonix - PO 40 mg BID SHAHRAM Administration Rosuvastatin Calcium 10 mg 01/14/18 22:00 01/16/18 21:38 Crestor - PO 10 mg HS SHAHRAM Administration Sotalol HCl 80 mg 01/17/18 22:00 Betapace - PO BID SHAHRAM Warfarin Sodium 2 mg 01/15/18 18:00 01/16/18 19:36 Coumadin - PO 2 mg DAILY@1800 SHAHRAM Administration ASSESSMENT/PLAN: Patient is an 82 year old female who was admitted on 01/15/2018 for afib with RVR and bilateral lower ext cellulitis. Her other history includes HTN, hyperlipidemia, a.fib (on Coumadin), CVA x 3, DVT, DIC, septic shock, hysterectomy and kidney stones. On exam, patient denies any shortness of breath, chest pain, headache or palpitations. ID: -Bilateral Lower Ext Cellulitis with left leg lateral wound, improving WBC elevated: Given Vancomycin as per ID, now converted to Keflex x 5 more days Blood cultures negative, will order UA/UC Wound care daily Elevation of lower legs Seen by Vascular, no surgical interventions needed Monitor CBC Remains afebrile, vitals stable Card: -Afib with RVR Rate control with Sotalol HCL, increased by cardiology today to 80mg BID -LV diastolic heart failure, chronic On ASA, Crestor, Betapace Followed by cardiology Monitor intake and output -Hypertension, chronic Mildly elevated, will monitor -Hyperlipidemia, chronic On Crestor -DVT history, on Coumain INR therapeutic F.E.N. Fluids: tolerating PO Electrolytes: monitor Nutrition: low salt Prohy: DVT: on Coumadin GI: Protonix Visit type - Emergency Visit Emergency Visit: Yes ED Registration Date: 01/15/18 Care time: The patient presented to the Emergency Department on the above date and was hospitalized for further evaluation of their emergent condition. - New Patient This patient is new to me today: Yes Date on this admission: 01/17/18 - Critical Care Critical Care patient: No - Discharge Referral Referred to [facility] Med [facility].: No
[2018-01-17] MEDS: WARFARIN NA 2 MG TABLET (UD) PO SCH (18:42)
[2018-01-17] MEDS: ROSUVASTATIN CA 10 MG TABLET (FP) PO SCH (20:59)
[2018-01-17] MEDS: CEPHALEXIN MONOHYDRATE 500 MG CAPSULE (UD) PO SCH (20:59)
[2018-01-18 07:51] LABS: BASO % 0.6 % (0-2.0); EOS % 3.5 % (0-4.5); HEMATOCRIT 38.2 % (32.4-45.2); HEMOGLOBIN 12.5 GM/dL (10.7-15.3); LYMPH % 7.2 % (8-40); MCH 26.7 pg (25.7-33.7); MCHC 32.7 g/dl (32.0-36.0); MEAN CELL VOLUME 81.6 fl (80-96); MEAN PLT VOLUME 8.7 fl (7.5-11.1); MONO % 18.2 % (3.8-10.2); NEUT % 70.5 % (42.8-82.8); PLATELET COUNT 242 K/MM3 (134-434); RBC 4.67 M/mm3 (3.60-5.2); RDW 15.4 % (11.6-15.6); WHITE BLOOD COUNT 14.7 K/mm3 (4.0-10.0)
[2018-01-18 08:05] LABS: ANION GAP 5 (8-16); BLOOD UREA NITROGEN 26 mg/dL (7-18); CALCIUM 8.3 mg/dL (8.5-10.1); CHLORIDE 108 mmol/L (98-107); CO2 30 mmol/L (21-32); CREATININE 1.2 mg/dL (0.55-1.02); GLUCOSE,RANDOM 118 mg/dL (74-106); MAGNESIUM 2.3 mg/dL (1.8-2.4); POTASSIUM 4.9 mmol/L (3.5-5.1); SGOT/AST 22 U/L (15-37); SGPT/ALT 24 U/L (12-78); SODIUM 143 mmol/L (136-145)
[2018-01-18 08:06] LABS: ALK PHOS 89 U/L (45-117); BILIRUBIN,TOTAL 0.9 mg/dL (0.2-1.0); TOT PROT 6.2 g/dl (6.4-8.2)
[2018-01-18 09:06] LABS: URINE APPEARANCE CLEAR; URINE BILIRUBIN NEGATIVE (<2.0 mg/dL); URINE BLOOD NEGATIVE (NEGATIVE); URINE COLOR YELLOW; URINE GLUCOSE (UA) NEGATIVE (NEGATIVE); URINE KETONE NEGATIVE (NEGATIVE); URINE LEUK ESTERASE NEGATIVE (NEGATIVE); URINE NITRITE NEGATIVE (NEGATIVE); URINE UROBILINOGEN NEGATIVE mg/dL (0.2-1.0)
[2018-01-18 09:07] LABS: URINE PROTEIN 2+ (NEGATIVE)
[2018-01-18 09:08] LABS: EPI CELLS RARE /HPF (FEW); URINE MUCUS RARE
[2018-01-18] MEDS: PANTOPRAZOLE 40 MG TABLET (FP) PO SCH ×2 (09:44→21:10)
[2018-01-18] MEDS: CEPHALEXIN MONOHYDRATE 500 MG CAPSULE (UD) PO SCH ×2 (09:44→21:09)
[2018-01-18] MEDS: SOTALOL HCL 80 MG TABLET (FP) PO SCH ×2 (09:44→21:09)
[2018-01-18] MEDS: LISINOPRIL 5 MG TABLET (FP) PO SCH (09:44)
[2018-01-18] MEDS: ASPIRIN 81 MG CHEWABLE TABLETS PO SCH (09:44)
[2018-01-18 10:33] LABS: HEMOGLOBIN 11.7 GM/dL (10.7-15.3); MCH 26.7 pg (25.7-33.7); MCHC 32.6 g/dl (32.0-36.0); MEAN PLT VOLUME 8.3 fl (7.5-11.1); PLATELET COUNT 231 K/MM3 (134-434); RDW 15.5 % (11.6-15.6); WHITE BLOOD COUNT 13.1 K/mm3 (4.0-10.0)
[2018-01-18] MEDS ORDERED: SOTALOL HCL 80 MG TABLET (FP) PO SCH (10:48)
[2018-01-18 11:07] LABS: ANION GAP 6 (8-16); BLOOD UREA NITROGEN 25 mg/dL (7-18); CALCIUM 8.2 mg/dL (8.5-10.1); CHLORIDE 109 mmol/L (98-107); CO2 29 mmol/L (21-32); CREATININE 1.1 mg/dL (0.55-1.02); GLUCOSE,RANDOM 181 mg/dL (74-106); POTASSIUM 4.8 mmol/L (3.5-5.1); SODIUM 144 mmol/L (136-145)
--- NOTE | 2018-01-18 11:27 | PN ---
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 (short form) - Note 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: 82 year old female admitted with palpitations, known case of persistent atrial fib. 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 No SOB,chest pain or discomfort. More alert, remains in atrial fib. Developed VPB's and also noted to have prolongation of QTc interval and the dose of Betapace is to be reduced back to 40mg. BID. She has refused to take amiodarone. Active Medications Acetaminophen (Tylenol -) 650 mg PO Q6H PRN PRN Reason: PAIN LEVEL 1-5 Last Admin: 01/17/18 05:16 Dose: 650 mg Aspirin (Asa -) 81 mg PO DAILY [facility] Last Admin: 01/18/18 09:44 Dose: 81 mg Cephalexin HCl (Keflex -) 500 mg PO BID [facility] Last Admin: 01/18/18 09:44 Dose: 500 mg Lisinopril (Prinivil) 5 mg PO DAILY [facility] Last Admin: 01/18/18 09:44 Dose: 5 mg Morphine Sulfate (Morphine Sulfate) 1 mg IVPUSH Q4H PRN PRN Reason: PAIN LEVEL 6-10 Pantoprazole Sodium (Protonix -) 40 mg PO BID [facility] Last Admin: 01/18/18 09:44 Dose: 40 mg Rosuvastatin Calcium (Crestor -) 10 mg PO HS [facility] Last Admin: 01/17/18 20:59 Dose: 10 mg Warfarin Sodium (Coumadin -) 2 mg PO DAILY@1800 [facility] Last Admin: 01/17/18 18:42 Dose: 2 mg 82 year old female in no distress, no pallor, cyanosis, clubbing or jaundice. Last Vital Signs Temp Pulse Resp BP Pulse Ox 97.6 F 82 18 132/78 95 01/18/18 09:45 01/18/18 09:45 01/18/18 09:45 01/18/18 09:45 01/17/18 21:00 NECK: Supple, no JVD, -ve HJR, carotids 2+.no bruits. HEART: PMI in the 5th ICS, no heaves or thrills. No murmur or gallops heard. LUNGS: Clear on auscultation. ABDOMEN: Soft, nontender, no organomegaly, incisional hernia. EXTREMITIES: Bilateral Wound is healing redness and hyperemia of the legs, left less than right. Wound on the left lower extremity is healing. CBC, BMP 01/18/18 10:15 01/18/18 10:15 IMPRESSIONS: 1. Atrial fib/flutter with controlled ventricular response with recent onset of VPB's and prolongation of QTc interval most likely related to increase dose of Betapace. 2. CHF, presently compensated, related to LV diastolic dysfunction. 3. Hypertension,HVCD. 4. Hypercholesterolemia. 5. S/p CVA. 6. Cellulitis of the extremities. 7. Wound involving the LLE RECOMMENDATIONS: 1.Add lasix 20mg. po daily. 2.Increase dose of BOBY as BP is elevated. 3.Daily weights. 4.Daily INR. 6.Betapace is being reduced to 40mg. Q12H. 7.Increase ambulation with assistance. 8.Further managment on out patient basis. 9.Counceled that she must not drive. 10.Close f/u of INR as she is on antibiotics. She refused to consider NOACs. 11.Continue lasix. 12.Could be discharged on 01/19/18.
--- NOTE | 2018-01-18 11:45 | PN ---
Physical Exam: SUBJECTIVE: Patient seen and examined OBJECTIVE: WBC trending down Bilateral lowe ext cellulitis with lower ext wounds under treatment - bacitracin added to lower ext wound BID On discharge patient will need visiting nurse to monitor wound and continue wound care Discussed with cardiology: added lasix 20mg daily, increased Lisinopril, INR daily, Betapace 40mg BID (decreased), Vital Signs Period Temp Pulse Resp BP Sys/Espinoza Pulse Ox Last 24 Hr 97.6 F-98.6 F 82-98 16-20 126-172/58-94 95 GENERAL: The patient is awake, alert, and fully oriented, in no acute distress. HEAD: Normal with no signs of trauma. EYES: PERRL, extraocular movements intact, sclera anicteric, conjunctiva clear. No ptosis. ENT: Ears normal, nares patent, oropharynx clear without exudates, moist mucous membranes. NECK: Trachea midline, full range of motion, supple. 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 NEUROLOGICAL: Normal speech, gait not observed. PSYCH: Normal mood, normal affect. SKIN: bilateral lower ext cellulitis, was on vanco, now converted to Keflex, there are noted open wounds to the LLE, patient requesting Hydrocortisone, however, will not order same as there are open areas which may irritate wound further Laboratory Results - last 24 hr 01/18/18 01/18/18 01/18/18 07:15 07:15 07:15 WBC 14.7 H RBC 4.67 Hgb 12.5 Hct 38.2 MCV 81.6 MCH 26.7 MCHC 32.7 RDW 15.4 Plt Count 242 MPV 8.7 Neutrophils % 70.5 Lymphocytes % 7.2 L Monocytes % 18.2 H Eosinophils % 3.5 Basophils % 0.6 Sodium 143 Potassium 4.9 Chloride 108 H Carbon Dioxide 30 Anion Gap 5 L BUN 26 H Creatinine 1.2 H Creat Clearance w eGFR 42.80 Random Glucose 118 H Hemoglobin A1c % 6.5 H Calcium 8.3 L Magnesium 2.3 Total Bilirubin 0.9 D AST 22 ALT 24 Alkaline Phosphatase 89 Total Protein 6.2 L Albumin 3.0 L Urine Color Urine Appearance Urine pH Ur Specific [place] Urine Protein Urine Glucose (UA) Urine Ketones Urine Blood Urine Nitrite Urine Bilirubin Urine Urobilinogen Ur Leukocyte Esterase Urine WBC (Auto) Urine RBC (Auto) Ur Epithelial Cells Urine Mucus 01/18/18 01/18/18 01/18/18 09:00 10:15 10:15 WBC 13.1 H RBC 4.40 Hgb 11.7 Hct 36.0 MCV 82.0 MCH 26.7 MCHC 32.6 RDW 15.5 Plt Count 231 MPV 8.3 Neutrophils % Lymphocytes % Monocytes % Eosinophils % Basophils % Sodium 144 Potassium 4.8 Chloride 109 H Carbon Dioxide 29 Anion Gap 6 L BUN 25 H Creatinine 1.1 H Creat Clearance w eGFR Random Glucose 181 H Hemoglobin A1c % Calcium 8.2 L Magnesium Total Bilirubin AST ALT Alkaline Phosphatase Total Protein Albumin Urine Color Yellow Urine Appearance Clear Urine pH 6.0 Ur Specific [place] 1.016 Urine Protein 2+ H Urine Glucose (UA) Negative Urine Ketones Negative Urine Blood Negative Urine Nitrite Negative Urine Bilirubin Negative Urine Urobilinogen Negative Ur Leukocyte Esterase Negative Urine WBC (Auto) 2 Urine RBC (Auto) None Ur Epithelial Cells Rare Urine Mucus Rare Active Medications Generic Name Dose Route Start Last Admin Trade Name Freq PRN Reason Stop Dose Admin Acetaminophen 650 mg 01/16/18 07:41 01/17/18 05:16 Tylenol - PO 650 mg Q6H PRN Administration PAIN LEVEL 1-5 Aspirin 81 mg 01/15/18 10:00 01/18/18 09:44 Asa - PO 81 mg DAILY SHAHRAM Administration Cephalexin HCl 500 mg 01/17/18 22:00 01/18/18 09:44 Keflex - PO 500 mg BID SHAHRAM Administration Lisinopril 5 mg 01/17/18 10:00 01/18/18 09:44 Prinivil PO 5 mg DAILY SHAHRAM Administration Morphine Sulfate 1 mg 01/16/18 07:41 Morphine Sulfate IVPUSH Q4H PRN PAIN LEVEL 6-10 Pantoprazole Sodium 40 mg 01/14/18 22:00 01/18/18 09:44 Protonix - PO 40 mg BID SHAHRAM Administration Rosuvastatin Calcium 10 mg 01/14/18 22:00 01/17/18 20:59 Crestor - PO 10 mg HS SHAHRAM Administration Warfarin Sodium 2 mg 01/15/18 18:00 01/17/18 18:42 Coumadin - PO 2 mg DAILY@1800 SHAHRAM Administration ASSESSMENT/PLAN: Patient is an 82 year old female who was admitted on 01/15/2018 for afib with RVR and bilateral lower ext cellulitis. Her other history includes HTN, hyperlipidemia, a.fib (on Coumadin), CVA x 3, DVT, DIC, septic shock, hysterectomy and kidney stones. On exam, patient denies any shortness of breath, chest pain, headache or palpitations. ID: Bilateral Lower Ext Cellulitis with left leg lateral wound, improving WBC elevated: Given Vancomycin as per ID, now converted to Keflex x 5 days Blood cultures negative, will order UA/UC Wound care daily Elevation of lower legs Seen by Vascular, no surgical interventions needed Monitor CBC Remains afebrile, vitals stable Card: Afib with RVR Rate control with Sotalol HCL, decreased by cardiology today Lisinopril increased for hypertension LV diastolic heart failure, chronic On ASA, Crestor, Betapace, started on Lasix Followed by cardiology Monitor intake and output Hypertension, chronic Mildly elevated, will monitor Increased Lisinopril Hyperlipidemia, chronic On Crestor DVT history, on Coumain INR therapeutic F.E.N. Fluids: tolerating PO Electrolytes: monitor Nutrition: low salt Prohy: DVT: on Coumadin GI: Protonix Visit type - Emergency Visit Emergency Visit: Yes ED Registration Date: 01/15/18 Care time: The patient presented to the Emergency Department on the above date and was hospitalized for further evaluation of their emergent condition. - New Patient This patient is new to me today: Yes Date on this admission: 01/19/18 - Critical Care Critical Care patient: No
[2018-01-18] MEDS ORDERED: LISINOPRIL 5 MG TABLET (FP) PO ONE (12:30)
[2018-01-18] MEDS: FUROSEMIDE 20 MG TABLET (FP) PO SCH (13:03)
[2018-01-18 13:22] LABS: INR 2.23 (0.82-1.09); PROTHROMBIN TIME (PATIENT) 25.2 SEC (9.98-11.88)
[2018-01-18] MEDS: BACITRACIN 15 GM TUBE TOPICAL OINTMENT TP SCH ×2 (17:51→21:10)
[2018-01-18] MEDS: WARFARIN NA 2 MG TABLET (UD) PO SCH ×2 (17:51→21:09)
[2018-01-18] MEDS: ROSUVASTATIN CA 10 MG TABLET (FP) PO SCH (21:09)
--- NOTE | 2018-01-19 08:47 | EKG ---
Test Reason : Blood Pressure : / mmHG Vent. Rate : 081 BPM Atrial Rate : 312 BPM P-R Int : 000 ms QRS Dur : 086 ms QT Int : 424 ms P-R-T Axes : 000 059 035 degrees QTc Int : 492 ms ATRIAL FLUTTER WITH VARIABLE A-V BLOCK WITH PREMATURE VENTRICULAR OR ABERRANTLY CONDUCTED COMPLEXES PROLONGED QT ABNORMAL ECG WHEN COMPARED WITH ECG OF 14-JAN-2018 11:04, NON-SPECIFIC CHANGE IN ST SEGMENT IN INFERIOR LEADS NONSPECIFIC T WAVE ABNORMALITY NO LONGER EVIDENT IN ANTERIOR LEADS Confirmed by REYNALDO SRINIVASAN, JUANA ([id number] on 01/19/2018 8:47:26 AM Referred By: DOMONIQUE POPE Confirmed By:JUANA JACOBS MD
[2018-01-19 09:39] LABS: BASO % 0.9 % (0-2.0); EOS % 3.5 % (0-4.5); HEMATOCRIT 38.8 % (32.4-45.2); HEMOGLOBIN 12.5 GM/dL (10.7-15.3); LYMPH % 8.9 % (8-40); MCH 26.4 pg (25.7-33.7); MCHC 32.3 g/dl (32.0-36.0); MEAN PLT VOLUME 8.2 fl (7.5-11.1); NEUT % 69.7 % (42.8-82.8); PLATELET COUNT 244 K/MM3 (134-434); RBC 4.74 M/mm3 (3.60-5.2); RDW 15.3 % (11.6-15.6)
[2018-01-19 09:56] LABS: INR 1.9 (0.82-1.09); PROTHROMBIN TIME (PATIENT) 21.5 SEC (9.98-11.88)
[2018-01-19] MEDS ORDERED: LISINOPRIL 5 MG TABLET (FP) PO SCH (10:00)
[2018-01-19] MEDS: PANTOPRAZOLE 40 MG TABLET (FP) PO SCH (10:04)
[2018-01-19] MEDS: ASPIRIN 81 MG CHEWABLE TABLETS PO SCH (10:09)
[2018-01-19] MEDS: CEPHALEXIN MONOHYDRATE 500 MG CAPSULE (UD) PO SCH (10:09)
[2018-01-19] MEDS: FUROSEMIDE 20 MG TABLET (FP) PO SCH (10:09)
[2018-01-19] MEDS: SOTALOL HCL 80 MG TABLET (FP) PO SCH ×2 (10:10→18:49)
[2018-01-19 10:12] LABS: ALK PHOS 83 U/L (45-117); ANION GAP 4 (8-16); BILIRUBIN,TOTAL 0.9 mg/dL (0.2-1.0); BLOOD UREA NITROGEN 25 mg/dL (7-18); CALCIUM 8.3 mg/dL (8.5-10.1); CHLORIDE 109 mmol/L (98-107); CO2 31 mmol/L (21-32); CREATININE 1.1 mg/dL (0.55-1.02); GLUCOSE,RANDOM 158 mg/dL (74-106); MAGNESIUM 2.2 mg/dL (1.8-2.4); POTASSIUM 4.4 mmol/L (3.5-5.1); SGOT/AST 19 U/L (15-37); SGPT/ALT 23 U/L (12-78); SODIUM 144 mmol/L (136-145); TOT PROT 6.2 g/dl (6.4-8.2)
[2018-01-19] MEDS: BACITRACIN 15 GM TUBE TOPICAL OINTMENT TP SCH (10:30)
--- NOTE | 2018-01-19 14:02 | PN ---
Physical Exam: SUBJECTIVE: Patient seen and examined at the bedside. I spoke to patient in detail about not driving, she needs to be cleared by the motor vehicle and her neurologist before driving. She understands that this is for safety, but she is not accepting of the fact that she is unable to drive. Patient told me that she was confused last night. She was found applying toothpaste to her legs because she needed "a cream" to her legs. She seems to be confused at night, but lucid during daytime. OBJECTIVE: BP elevated this afternoon, will give Lisinopril 10mg x 1 now Vital Signs Period Temp Pulse Resp BP Sys/Espinoza Pulse Ox Last 24 Hr 97.6 F-98.0 F 85-90 20-20 150-161/63-89 96-97 GENERAL: The patient is awake, alert, and fully oriented, in no acute distress - episodes of confusion at night HEAD: Normal with no signs of trauma. EYES: PERRL, extraocular movements intact, sclera anicteric, conjunctiva clear. No ptosis. ENT: Ears normal, nares patent, oropharynx clear without exudates, moist mucous membranes. NECK: Trachea midline, full range of motion, supple. 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 NEUROLOGICAL: Normal speech, gait not observed. PSYCH: Normal mood, normal affect. SKIN: bilateral lower ext cellulitis, was on vanco, now converted to Keflex Laboratory Results - last 24 hr 01/19/18 01/19/18 01/19/18 09:27 09:27 09:27 WBC 13.0 H RBC 4.74 Hgb 12.5 Hct 38.8 MCV 82.0 MCH 26.4 MCHC 32.3 RDW 15.3 Plt Count 244 MPV 8.2 Neutrophils % 69.7 Lymphocytes % 8.9 D Monocytes % 17.0 H Eosinophils % 3.5 Basophils % 0.9 PT with INR 21.50 H INR 1.90 H Sodium Potassium Chloride Carbon Dioxide Anion Gap BUN Creatinine Creat Clearance w eGFR Random Glucose Calcium Magnesium Cancelled Total Bilirubin AST ALT Alkaline Phosphatase Total Protein Albumin 01/19/18 09:27 WBC RBC Hgb Hct MCV MCH MCHC RDW Plt Count MPV Neutrophils % Lymphocytes % Monocytes % Eosinophils % Basophils % PT with INR INR Sodium 144 Potassium 4.4 Chloride 109 H Carbon Dioxide 31 Anion Gap 4 L BUN 25 H Creatinine 1.1 H Creat Clearance w eGFR 47.32 Random Glucose 158 H Calcium 8.3 L Magnesium 2.2 Total Bilirubin 0.9 AST 19 ALT 23 Alkaline Phosphatase 83 Total Protein 6.2 L Albumin 3.0 L Active Medications Generic Name Dose Route Start Last Admin Trade Name Freq PRN Reason Stop Dose Admin Acetaminophen 650 mg 01/16/18 07:41 01/17/18 05:16 Tylenol - PO 650 mg Q6H PRN Administration PAIN LEVEL 1-5 Aspirin 81 mg 01/15/18 10:00 01/19/18 10:09 Asa - PO 81 mg DAILY SHAHRAM Administration Bacitracin 1 applic 01/18/18 17:15 01/19/18 10:30 Bacitracin - TP 1 applic BID SHAHRAM Administration Cephalexin HCl 500 mg 01/17/18 22:00 01/19/18 10:09 Keflex - PO 500 mg BID SHAHRAM Administration Furosemide 20 mg 01/18/18 12:15 01/19/18 10:09 Lasix - PO 20 mg DAILY SHAHRAM Administration Lisinopril 10 mg 01/19/18 10:00 01/19/18 10:10 Prinivil PO 10 mg DAILY SHAHRAM Administration Pantoprazole Sodium 40 mg 01/14/18 22:00 01/19/18 10:04 Protonix - PO Not Given BID SHAHRAM Rosuvastatin Calcium 10 mg 01/14/18 22:00 01/18/18 21:09 Crestor - PO 10 mg HS SHAHRAM Administration Sotalol HCl 40 mg 01/18/18 22:00 01/19/18 10:10 Betapace - PO 40 mg BID SHAHRAM Administration Warfarin Sodium 2 mg 01/15/18 18:00 01/18/18 21:09 Coumadin - PO 2 mg DAILY@1800 SHAHRAM Administration ASSESSMENT/PLAN: Patient is an 82 year old female who was admitted on 01/15/2018 for afib with RVR and bilateral lower ext cellulitis. 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 On exam, patient denies any shortness of breath, chest pain, headache or palpitations. ID: Bilateral Lower Ext Cellulitis with left leg lateral wound, improving WBC elevated: Given Vancomycin as per ID, now converted to Keflex x 5 days Blood cultures negative Wound care daily, but patient refusing bacitracin Elevation of lower legs Seen by Vascular, no surgical interventions needed Monitor CBC Remains afebrile, vitals stable Card: Afib with RVR Rate control with Sotalol HCL, decreased by cardiology today Lisinopril increased for hypertension LV diastolic heart failure, chronic On ASA, Crestor, Betapace, started on Lasix Followed by cardiology Monitor intake and output Hypertension, chronic/still elevated BP elevated again, today, will give one dose of Lisonpril Will monitor BP Hyperlipidemia, chronic On Crestor DVT history, on Cou[place] INR 1.9 Monitor in the setting of antibiotics F.E.N. Fluids: tolerating PO Electrolytes: monitor Nutrition: low salt Prohy: DVT: on Coumadin GI: Protonix Visit type - Emergency Visit Emergency Visit: Yes ED Registration Date: 01/15/18 Care time: The patient presented to the Emergency Department on the above date and was hospitalized for further evaluation of their emergent condition. - New Patient This patient is new to me today: No - Critical Care Critical Care patient: No - Discharge Referral Referred to [facility] Med [facility].: No
[2018-01-19] MEDS ORDERED: LISINOPRIL 10 MG TABLET (FP) PO ONE (14:30)
[2018-01-19 15:12] VITALS: TEMP 97.3
[2018-01-19] MEDS ORDERED: LISINOPRIL 20 MG TABLET (FP) PO SCH (15:19)
[2018-01-19] MEDS: WARFARIN NA 2 MG TABLET (UD) PO SCH (17:10)
[2018-01-19 18:18] VITALS: BP 149/74; PULSE 90
--- NOTE | 2018-01-19 18:32 | PN ---
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 (short form) - Note 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: 82 year old female admitted with palpitations, known case of persistent atrial fib. 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 No SOB,chest pain or discomfort. More alert, remains in atrial fib. Developed VPB's and also noted to have prolongation of QTc interval and the dose of Betapace is to be reduced back to 40mg. BID. Has reported no symptoms Bp had been elevated earlier has improved snce receiving an extra dose of lisinopril. + Active Medications Acetaminophen (Tylenol -) 650 mg PO Q6H PRN PRN Reason: PAIN LEVEL 1-5 Last Admin: 01/17/18 05:16 Dose: 650 mg Aspirin (Asa -) 81 mg PO DAILY [facility] Last Admin: 01/19/18 10:09 Dose: 81 mg Bacitracin (Bacitracin -) 1 applic TP BID [facility] Last Admin: 01/19/18 10:30 Dose: 1 applic Cephalexin HCl (Keflex -) 500 mg PO BID [facility] Last Admin: 01/19/18 10:09 Dose: 500 mg Furosemide (Lasix -) 20 mg PO DAILY [facility] Last Admin: 01/19/18 10:09 Dose: 20 mg Lisinopril (Prinivil) 20 mg PO DAILY [facility] Pantoprazole Sodium (Protonix -) 40 mg PO BID [facility] Last Admin: 01/19/18 10:04 Dose: Not Given Rosuvastatin Calcium (Crestor -) 10 mg PO HS [facility] Last Admin: 01/18/18 21:09 Dose: 10 mg Sotalol HCl (Betapace -) 40 mg PO BID [facility] Last Admin: 01/19/18 10:10 Dose: 40 mg Warfarin Sodium (Coumadin -) 2 mg PO DAILY@1800 [facility] Last Admin: 01/19/18 17:10 Dose: 2 mg 82 year old female in no distress, no pallor, cyanosis, clubbing or jaundice. Last Vital Signs Temp Pulse Resp BP Pulse Ox 97.3 F L 90 16 149/74 97 01/19/18 14:00 01/19/18 18:00 01/19/18 18:00 01/19/18 18:00 01/19/18 10:00 INR, PTT INR 1.90 (0.82-1.09) H 01/19/18 09:27 NECK: Supple, no JVD, -ve HJR, carotids 2+.no bruits. HEART: PMI in the 5th ICS, no heaves or thrills. No murmur or gallops heard. LUNGS: Clear on auscultation. ABDOMEN: Soft, nontender, no organomegaly, incisional hernia. EXTREMITIES: Bilateral Wound is healing redness and hyperemia of the legs, left less than right. Wound on the left lower extremity is healing. INR, PTT INR 1.90 (0.82-1.09) H 01/19/18 09:27 CBC, BMP 01/18/18 10:15 01/18/18 10:15 IMPRESSIONS: 1. Atrial fib/flutter with controlled ventricular response with recent onset of VPB's and prolongation of QTc interval most likely related to increase dose of Betapace. 2. CHF, presently compensated, related to LV diastolic dysfunction. 3. Hypertension,HVCD. 4. Hypercholesterolemia. 5. S/p CVA. 6. Cellulitis of the extremities. 7. Wound involving the LLE RECOMMENDATIONS: 1.Add lasix 20mg. po daily. 2.Increase dose of BOBY as BP is elevated. 3.Daily weights. 4.Daily INR. 6.Betapace is being reduced to 40mg. Q12H. 7.Increase ambulation with assistance. 8.Further managment on out patient basis. 9.Counceled that she must not drive. 10.Close f/u of INR as she is on antibiotics. She refused to consider NOACs. 11.Continue lasix. 12.Extra 1mg. of warfarin today.
[2018-01-19] MEDS ORDERED: WARFARIN NA 1 MG TABLET (FP) PO ONE (18:45)
--- NOTE | 2018-01-19 18:45 | DS ---
Physical Exam: SUBJECTIVE: Patient seen and examined at the bedside. Wants to go home, despite my asking her to stay overnight so that we can monitor her blood pressure. She does not want a visiting nurse despite needing one for wound care. Wants to do the wound care herself. 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 Spoke to her in detail, and asked her to reconsider VNS but she gets upset when I bring up VNS or help at home. OBJECTIVE: Vital Signs Period Temp Pulse Resp BP Sys/Espinoza Pulse Ox Last 24 Hr 97.3 F-98.0 F 85-90 16-20 118-161/57-89 96-97 PHYSICAL EXAM GENERAL: The patient is awake, alert, and fully oriented, in no acute distress - episodes of confusion at night HEAD: Normal with no signs of trauma. EYES: PERRL, extraocular movements intact, sclera anicteric, conjunctiva clear. No ptosis. ENT: Ears normal, nares patent, oropharynx clear without exudates, moist mucous membranes. NECK: Trachea midline, full range of motion, supple. LUNGS: Breath sounds diminished, clear bilaterally HEART: afib on awake overnight monitor, controlled ABDOMEN: Soft, nontender, nondistended, normoactive bowel sounds, no guarding EXTREMITIES: no edema. NEUROLOGICAL: Normal speech, gait not observed. PSYCH: Normal mood, normal affect. SKIN: bilateral lower ext cellulitis, was on vanco, now converted to Keflex LABS Laboratory Results - last 24 hr 01/19/18 01/19/18 01/19/18 09:27 09:27 09:27 WBC 13.0 H RBC 4.74 Hgb 12.5 Hct 38.8 MCV 82.0 MCH 26.4 MCHC 32.3 RDW 15.3 Plt Count 244 MPV 8.2 Neutrophils % 69.7 Lymphocytes % 8.9 D Monocytes % 17.0 H Eosinophils % 3.5 Basophils % 0.9 PT with INR 21.50 H INR 1.90 H Sodium Potassium Chloride Carbon Dioxide Anion Gap BUN Creatinine Creat Clearance w eGFR Random Glucose Calcium Magnesium Cancelled Total Bilirubin AST ALT Alkaline Phosphatase Total Protein Albumin 01/19/18 09:27 WBC RBC Hgb Hct MCV MCH MCHC RDW Plt Count MPV Neutrophils % Lymphocytes % Monocytes % Eosinophils % Basophils % PT with INR INR Sodium 144 Potassium 4.4 Chloride 109 H Carbon Dioxide 31 Anion Gap 4 L BUN 25 H Creatinine 1.1 H Creat Clearance w eGFR 47.32 Random Glucose 158 H Calcium 8.3 L Magnesium 2.2 Total Bilirubin 0.9 AST 19 ALT 23 Alkaline Phosphatase 83 Total Protein 6.2 L Albumin 3.0 L HOSPITAL COURSE: Date of Admission:01/15/18 Date of Discharge: 01/19/18 ASSESSMENT/PLAN: Patient is an 82 year old female who was admitted on 01/15/2018 for afib with RVR and bilateral lower ext cellulitis. 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 On exam, patient denies any shortness of breath, chest pain, headache or palpitations. ID: Bilateral Lower Ext Cellulitis with left leg lateral wound, improving WBC elevated: Given Vancomycin as per ID, now converted to Keflex x 5 days, last dose on 01/22 Blood cultures negative Wound care daily, but patient refusing bacitracin, refusing VNS Elevation of lower legs encouraged Seen by Vascular, no surgical interventions needed Card: Afib with RVR Rate control with Sotalol HCL, decreased by cardiology, will send home on Sotalol 40mg BID Lisinopril increased to 20mg daily for hypertension LV diastolic heart failure, chronic On ASA, Crestor, Betapace, started on Lasix Cardiology outpatient follow up Hypertension, chronic/improving after Lisinopril increase Will monitor BP Cardiology follow up outpatient Hyperlipidemia, chronic On Crestor DVT history, on Coumadin INR 1.9 today, will monito as she is on antibiotics Discharge home today. Minutes to complete discharge: 45 Discharge Summary Reason For Visit: ATRIAL FIBRILLATION, CELLULITIS Current Active Problems Cellulitis (Acute) Palpitations (Acute) Condition: Guarded - Instructions Diet, Activity, Other Instructions: Mrs. Wiggins: Please continue the cardiac medications as ordered by your informatics scientist. New medications have been called into your pharmacy. Keflex is an antibiotics for your leg wounds, please continue until January 22. Continue taking your Coumadin and please follow up with your primary to have your INR checked. Please call me with any questions that you may have. [facility] @ [facility] [phone] Referrals: Tahira Quiñones MD [Non Staff, Medical] - 1 Week Kale Quiñones MD [Primary Care Provider] - Disposition: HOME - Home Medications Comprehensive Discharge Medication List: Ambulatory Orders Aspirin [ASA -] 81 mg PO DAILY #0 tab.chew 09/22/17 Furosemide [Lasix] 20 mg PO ASDIR 01/14/18 Hydrochlorothiazide [Hctz -] 12.5 mg PO DAILY 01/14/18 Nebivolol HCl [Bystolic] 10 mg PO BID 01/14/18 Omeprazole 40 mg PO BID 01/14/18 Rosuvastatin Calcium [Crestor] 10 mg PO DAILY 01/14/18 Warfarin Na [Coumadin -] 2 mg PO DAILY@1800 01/14/18 This patient is new to me today: Yes Date on this admission: 01/19/18 Emergency Visit: Yes ED Registration Date: 01/15/18 Care time: The patient presented to the Emergency Department on the above date and was hospitalized for further evaluation of their emergent condition. Critical Care patient: No - Discharge Referral Referred to [facility] No
--- NOTE | 2018-01-20 15:33 | EKG ---
Test Reason : Blood Pressure : / mmHG Vent. Rate : 084 BPM Atrial Rate : 220 BPM P-R Int : 000 ms QRS Dur : 084 ms QT Int : 410 ms P-R-T Axes : 000 052 032 degrees QTc Int : 484 ms ATRIAL FIBRILLATION ABNORMAL ECG WHEN COMPARED WITH ECG OF 18-JAN-2018 10:20, ATRIAL FIBRILLATION HAS REPLACED ATRIAL FLUTTER NONSPECIFIC T WAVE ABNORMALITY, WORSE IN INFERIOR LEADS Confirmed by REYNALDO SRINIVASAN, JUANA ([id number]) on 01/20/2018 3:32:53 PM Referred By: Confirmed By:JUANA JACOBS MD
== END 2018-01-19 19:24 | disposition home or self-care (01) | DRG 603 ==
LOC: JER 10:40 → JERBED 14:17 → J2W 17:09 → OBSVTOIN 01-15 14:53 → J4S 01-17 06:19
PROVIDERS: ADMIT Hospitalist; ATTEND Nurse Practitioner Family
DX: L03.116 Cellulitis of left lower limb (principal); I48.92 Unspecified atrial flutter; I50.32 Chronic diastolic (congestive) heart failure; L97.929 Non-pressure chronic ulcer of unspecified part of left lower leg with unspecified severity; I11.0 Hypertensive heart disease with heart failure; R00.2 Palpitations; L03.115 Cellulitis of right lower limb; D64.9 Anemia, unspecified; I48.91 Unspecified atrial fibrillation; E78.5 Hyperlipidemia, unspecified; I44.30 Unspecified atrioventricular block; Z72.820 Sleep deprivation; Z86.718 Personal history of other venous thrombosis and embolism; Z87.442 Personal history of urinary calculi; Z79.01 Long term (current) use of anticoagulants; Z86.73 Personal history of transient ischemic attack (TIA), and cerebral infarction without residual deficits
CPT/HCPCS: 36415; 71045-TC-FY; 73502-TC-LT-FY; 80048; 80053; 81003; 81015; 82465; 83036; 83735; 83880; 84443; 84484; 85025; 85027; 85610; 85730; 87040; 87086; 93005; 93010; 93970-TC; 97116-GP; 97161-GP; 99285-25; G0378

== ENCOUNTER 2018-08-05 11:04 | Inpatient (IN) | payer OTHER ==
--- NOTE | 2018-08-05 12:39 | PDOC ---
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 Quiñones for evaluation of shortness of breath. The patient reportedly saw Dr. Quiñones last week and during a phone call today noticed the patient to be short of breath. THe patient states she felt short of breath while laying flat last night. She states she also felt a faint unusual chest discomfort which has since resolved. Secondarily, Dr. Quiñones reports he wanted the patient to see wound care last week but unable to get the patient an appointment for that time. The patient states her microwave, stove, bathroom light, and oven are not working. She states she has had to order food out in order to eat. The patient denies headache, cough, and dizziness. The patient denies fevers, chills, nausea, vomit, diarrhea, and constipation. The patient denies dysuria, frequency, urgency, and hematuria. Allergies: NKA Past surgical history: Hysterectomy. Kidney stones. Social history: Former smoker. No reported alcohol or drug use. PCP/Cardio: Dr. Quiñones - Physicial Exam PE: 08/05/18 15:32 GENERAL: The patient is awake, alert, and fully oriented, Nontoxic - in no acute distress. HEAD: Normocephalic, atraumatic. EYES: extraocular movements intact, sclera anicteric, conjunctiva clear. ENT: Normal voice, Moist mucous membranes. NECK: Normal range of motion, supple LUNGS: Breath sounds equal, clear to auscultation bilaterally. No wheezes, no rhonchi, no rales. HEART: irregularly irregular ABDOMEN: Soft, nontender, No guarding, no rebound.No CVA tenderness EXTREMITIES: Normal range of motion, +pitting edema, milderythema that is not warm, nontender to palpation, no induration NEUROLOGICAL: No facial assymetry, Normal speech, moving all 4 extremities spontaneously and symmetrically PSYCH: Normal mood, normal affect. SKIN: Warm, Dry, normal turgor, - Medical Decision Making 08/05/18 15:33 Documentation prepared by Cecilia Brush, acting as medical coding manager for Micah Bella MD <Cecilia Brush - Last Filed: 08/05/18 15:32> - Resident Resident Name: Efren Teague - ED Attending Attestation I have performed the following: I have examined & evaluated the patient, The case was reviewed & discussed with the resident, I agree w/resident's findings & plan, Exceptions are as noted - Medical Decision Making 08/05/18 12:36 83y F HTN, CVA ( residual memory/spatial deficits), afib on coumadin, hl, sent to the ED for evaluation by Dr. Quiñones for sob. The pt notes that she occsaionally feels sob, particularly at rest (last night), endorses a 'funny feeling' in her chest last night associtaed with the sob - denies any current sob, cp, palpitations, lighteahdedness. on exam pt in no distress ddx - chf/orthpnea - will obtain blood work to r/o anemia, metbolic dernagement, ua to r/o uti will reassess there was some concern into the pts ambulation status - per PT, pt ambulates well without assistance A portion of this note was documented by scribe services under my direction. I have reviewed the details of the note, within reason, and agree with the documentation with the following case summary and management plan written by me <Micah Bella - Last Filed: 08/05/18 16:00> Heart Score/ECG Review - ECG Impressions Comment:: 08/05/18 15:59 Twelve-lead EKG was performed and reviewed by me. There is normal sinus rhythm with a normal rate. Rate of 65 The axis is normal. The intervals are normal. There is normal R wave progression There are no ST or T wave abnormalities. Impression: Normal twelve-lead EKG <Micah Bella - Last Filed: 08/05/18 16:00>
--- NOTE | 2018-08-05 12:52 | PDOC ---
History of Present Illness - General Chief Complaint: Pain, Acute Stated Complaint: LEG PAIN Time Seen by Provider: 08/05/18 11:57 History Source: Patient, Friend, Primary Care Provider Exam Limitations: No Limitations - History of Present Illness Initial Comments: 83 y/o female presenting to [facility] ER via private auto complaining of pain to chronic and unchanged bilateral lower extremity wounds. Pt states she was evaluated by her PCP Dr. Quiñones last who urged her to be evaluated at the emergency department because her legs were not healing like hed hoped. She denies acute changes to legs. Unable to recall the last time she was prescribed antibiotics for the wounds. Denies fevers, chills, or diaphoresis. Pt is accompanied by her friend and former employee Myrtle Savage who privately reported that the pt was having trouble caring for herself at home. She lives alone. Pt has been found on the floor multiple times by housekeepers and friends. All of her electronic appliances, including refrigerator and stove , are not functioning. The pt is not eating regularly. Her son is a accounting lecturer currently residing in [facility]). Her brother is infirmed with CLL in [place]. Pt has not other family members. PCP: Dr. 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) - DVT - DIC - H/o septic shock - Kidney stones Surgical Hx: - Appendectomy - Tonsillectomy - Hysterectomy - Oophorectomy Past History - Past Medical History Allergies/Adverse Reactions: Allergies Allergy/AdvReac Type Severity Reaction Status Date / Time No Known Allergies Allergy Verified 08/05/18 11:12 Home Medications: Ambulatory Orders Aspirin [ASA -] 81 mg PO DAILY #0 tab.chew 09/22/17 Rosuvastatin Calcium [Crestor] 10 mg PO DAILY 01/14/18 Warfarin Na [Coumadin -] 2 mg PO DAILY@1800 01/14/18 Furosemide [Lasix -] 20 mg PO DAILY #30 tablet 01/19/18 Sotalol HCl [Betapace -] 40 mg PO BID #30 tablet 01/19/18 Anemia: Yes Asthma: No Cancer: No Cardiac Disorders: Yes (a.fib) CVA: Yes (x3) COPD: No CHF: No DVT: Yes Dementia: No Diabetes: No GI Disorders: Yes Disorders: Yes (KIDNEY STONES) HTN: Yes Hypercholesterolemia: Yes Liver Disease: No Seizures: No Thyroid Disease: No - Surgical History Abdominal Surgery: Yes Appendectomy: Yes Cardiac Surgery: No Cholecystectomy: No Lung Surgery: No Neurologic Surgery: No Orthopedic Surgery: No - Immunization History Immunization Up to Date: Yes - Suicide/Smoking/Psychosocial Hx Smoking History: Unknown if ever smoked Have you smoked in the past 12 months: No If you are a former smoker, when did you quit?: 40yrs Hx Alcohol Use: No Drug/Substance Use Hx: No Substance Use Type: None Hx Substance Use Treatment: No Review of Systems - Review of Systems Able to Perform ROS?: Yes Comments:: In addition to that documented in the HPI above, the additional ROS was obtained : Constitutional: Denies fevers or chills Eyes: Denies vision changes ENMT: Denies sore throat CV: Denies chest pain Resp: Endorses a single, resolved episode of shortness of breath last evening GI: Denies vomiting or diarrhea Is the patient limited Yi proficient: No *Physical Exam - Vital Signs Last Vital Signs Temp Pulse Resp BP Pulse Ox 97.8 F 78 26 H 177/44 H 97 08/05/18 11:12 08/05/18 11:12 08/05/18 11:12 08/05/18 11:12 08/05/18 11:12 - Physical Exam Comments: Constitutional: Non-toxic female in no acute distress or obvious discomfort. Found sitting upright in wheelchair, able to transfer to hospital bed without assistance. Alert and oriented x4. Answered all questions appropriately and completely. Speech was non-labored, non-pressured. HEENT: Normocephalic. No obvious external signs of trauma. Hearing grossly normal. No nasal discharge. Neck is supple, trachea is midline. Cardiovascular: Regular rate and regular rhythm. No murmur, rubs, clicks, or gallops. Peripheral pulses: Radial pulses full. Respiratory: Breathing unlabored. Equal chest rise and fall. Clear to auscultation bilaterally. No stridor, no wheezing, no rhonchi. Neuro: Alert and oriented. Moving all four extremities spontaneously. Intact sensation to all four extremities. Lower extremity proximal and distal strength 5/5, weatherization field technician strength 5/5 - equal and symmetric. Plantar flexion and dorsiflexion 5 /5. Skin: Warm and dry. 1+ pretibial edema bilaterally to mid-tibia. Chronic wounds bilaterally without cellulitic lesions. One circumferential area of partial thickness skin breakdown with minimal drainage to posterior of lower left extremity. Psych: Affect: appropriate. Mood: normal. ED Treatment Course - LABORATORY CBC & Chemistry Diagram: 08/05/18 14:15 08/05/18 14:15 Medical Decision Making - Medical Decision Making *Reviewed vital signs, nursing notes, and prior visit documentation (if available). 83 y/o female initially complaining of bilateral lower extremity pain. H/o chronically poor healing wounds; pt reports these are not changed. Vitals remarkable for hypertension without tachycardia. Physical exam as above. Low suspicion for acute wound changes or active infection. Concern for reported multiple falls and possible poor home condition. Will obtain CBC, CMP, UA, and urine culture. Will obtain PT consult to evaluate ambulatory status. 13:40 Physical Therapy reports ambulatory without devices. CBC revealed leukocytosis to 17. Possible reactionary. Low suspicion for infectious etiology given afebrile, vitals unremarkable for hypotension or tachycardia. Awaiting UA and culture. CMP unremarkable for electrolyte derangement. LFTs not elevated. 13:[address] Quiñones who stated he actually referred the pt to follow up with the wound care team last not the emergency department. He spoke to the pt on the telephone this morning and found that she sounded short of breath. He requested she be evaluated at the ER at this time. Will order EKG, CXR, and BNP. EKG showed a sinus rhythm with a ventricular rate of 65 bpm. Normal axis and normal intervals. No ST segment elevation or depression. No hyperacute T waves. CXR revealed slightly increased bilaterally interstitial shaver. Possibly mild pulmonary venous congestion superimposed over chronic interstitial lung disease. Compared to prior CXR dated 09/19/2017 and 01/14/2018. Awaiting BNP. 16:35 Pt has not provided urine. States she lost her urine cup and already voided. Provided cup of coffee and a second collection cup. BMP elevated. Trend upward of 300 from prior admission in December 2017. 16:45 Dr. Quiñones, pts PCP and coagulating operator, called for pt updates. Provided results. Requested the pt be admitted to either Drs. Rivera services for acute heart failure given increased pulmonary congestion and elevated BNP. Will evaluate pt this evening. Pt not reporting dyspnea at this time. Will hold diuretics at this time and defer additional management to cardiology. 16:59 Telephone page sent to Dr. Jacki Schmitz for admission. Returned call. Agrees to admit to telemetry on inpatient status for heart failure. No additional orders given. Still awaiting UA results. Ordered evening home sotalol dose as pressure remains elevated to 170s systolic. *DC/Admit/Observation/Transfer Diagnosis at time of Disposition: Heart failure Qualifiers: Heart failure type: unspecified Heart failure chronicity: unspecified Qualified Code(s): I50.9 - Heart failure, unspecified - Discharge Dispostion Condition at time of disposition: Stable Decision to Admit order: Yes - Referrals Referrals: ON STAFF,NOT [Primary Care Provider] - - Patient Instructions - Post Discharge Activity
[2018-08-05] MEDS ORDERED: SODIUM CHLORIDE 0.9% 500 ML INFUS.BAG IV ONE (12:55)
[2018-08-05 14:25] LABS: BASO % 0.6 % (0-2.0); EOS % 1.6 % (0-4.5); HEMATOCRIT 38.9 % (32.4-45.2); LYMPH % 6.8 % (8-40); MCH 29.6 pg (25.7-33.7); MCHC 33.3 g/dl (32.0-36.0); MONO % 18.8 % (3.8-10.2); NEUT % 72.2 % (42.8-82.8); PLATELET COUNT 249 K/MM3 (134-434); RBC 4.38 M/mm3 (3.60-5.2); RDW 13.3 % (11.6-15.6); WHITE BLOOD COUNT 17.9 K/mm3 (4.0-10.0)
[2018-08-05 15:00] LABS: ALBUMIN 3.3 g/dl (3.4-5.0); ALK PHOS 110 U/L (45-117); ANION GAP 7 MMOL/L (8-16); BILIRUBIN,TOTAL 1.4 mg/dL (0.2-1); BLOOD UREA NITROGEN 19 mg/dL (7-18); CALCIUM 8.4 mg/dL (8.5-10.1); CHLORIDE 106 mmol/L (98-107); CO2 31 mmol/L (21-32); CREATININE 0.7 mg/dL (0.55-1.3); GLUCOSE,RANDOM 93 mg/dL (74-106); POTASSIUM 4.6 mmol/L (3.5-5.1); SGOT/AST 25 U/L (15-37); SGPT/ALT 20 U/L (13-61); SODIUM 144 mmol/L (136-145); TOT PROT 6.6 g/dl (6.4-8.2)
[2018-08-05 16:48] LABS: N-TERMINAL BNP 5661.6 pg/ml (5-450)
[2018-08-05] MEDS ORDERED: SOTALOL HCL PO ONE (18:07)
--- NOTE | 2018-08-05 18:16 | HP ---
Admitting History and Physical - Primary Care Physician PCP: Costa Schmitz - Admission Chief Complaint: SOB History of Present Illness: Pt with progressive SOB and LE edema for couple of days called Dr Quiñones today who noticed pt be dyspneic while talking. Dr. Quiñones recommended to patient to come to ER for evaluation and treatment. 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 Cardiovascular: Yes: AFIB, CHF, Deep Vein Thrombosis, HTN, Hyperlipdemia Renal/: Yes: Renal Calculi (and sepsis) Heme/Onc: Yes: Other (DIC) - Past Surgical History Past Surgical History: Yes: Hysterectomy (and abdominal hernia) - Smoking History Smoking history: Former smoker Have you smoked in the past 12 months: No If you are a former smoker, when did you quit?: 40yrs - Alcohol/Substance Use Hx Alcohol Use: No Home Medications - Allergies Allergies/Adverse Reactions: Allergies Allergy/AdvReac Type Severity Reaction Status Date / Time No Known Allergies Allergy Verified 08/05/18 11:12 - Home Medications Home Medications: Ambulatory Orders Aspirin [ASA -] 81 mg PO DAILY #0 tab.chew 09/22/17 Rosuvastatin Calcium [Crestor] 10 mg PO DAILY 01/14/18 Warfarin Na [Coumadin -] 2 mg PO DAILY@1800 01/14/18 Furosemide [Lasix -] 20 mg PO DAILY #30 tablet 01/19/18 Sotalol HCl [Betapace -] 40 mg PO BID #30 tablet 01/19/18 Review of Systems - Review of Systems Constitutional: denies: Chills, Fever Eyes: denies: Blurred Vision, Double Vision HENT: denies: Ear Discharge, Ear Pain, Nasal Congestion, Throat Pain Neck: denies: Decreased ROM, Stiffness Cardiovascular: reports: Shortness of Breath. denies: Chest Pain, Edema, Palpitations Respiratory: reports: SOB on Exertion. denies: Cough, Wheezing Gastrointestinal: denies: Abdominal Pain, Diarrhea, Vomiting Genitourinary: denies: Burning, Dysuria Musculoskeletal: denies: Back Pain, Muscle Pain Integumentary: reports: Wound (of left leg). denies: Bruising Neurological: reports: Unsteady Gait. denies: Change in LOC, Numbness, Weakness Endocrine: denies: Excessive Sweating, Intolerance to Cold Hematology/Lymphatic: denies: Easily Bruised, Excessive Bleeding Psychiatric: denies: Anxiety, Depression Physical Examination Vital Signs: Vital Signs Temperature 97.8 F 08/05/18 11:12 Pulse Rate 75 08/05/18 17:33 Respiratory Rate 20 08/05/18 17:33 Blood Pressure 171/50 H 08/05/18 17:33 O2 Sat by Pulse Oximetry (%) 96 08/05/18 17:33 Constitutional: Yes: No Distress, Calm Eyes: Yes: Conjunctiva Clear, EOM Intact, PERRL HENT: Yes: Normocephalic, Pharyngeal Erythema. No: Rhinnorhea Neck: Yes: Trachea Midline. No: Lymphadenopathy Cardiovascular: Yes: Regular Rate and Rhythm, S1, S2 Respiratory: Yes: Regular, Other (crackles at both bases) Gastrointestinal: Yes: Normal Bowel Sounds, Soft, Hernia ...Rectal Exam: Yes: Deferred Breast(s): Yes: Other (deferred) Musculoskeletal: Yes: Back Pain. No: Joint Swelling Edema: LLE: 1+, RLE: 1+ Wound/Incision: Yes: Other (left leg, posterior,above the ankle, 2 cm diameter stage 2 ulcer) Neurological: Yes: Alert, Oriented, Other (motor and sensory examination grossly symetric in UE/ LE/ face) Psychiatric: Yes: Alert, Oriented Labs: CBC, BMP 08/05/18 14:15 08/05/18 14:15 Imaging - Results Chest X-ray: Image Reviewed Problem List - Problems (1) Acute exacerbation of CHF (congestive heart failure) Code(s): I50.9 - HEART FAILURE, UNSPECIFIED (2) HTN (hypertension) Code(s): I10 - ESSENTIAL (PRIMARY) HYPERTENSION (3) Paroxysmal A-fib Code(s): I48.0 - PAROXYSMAL ATRIAL FIBRILLATION (4) Leg ulcer Code(s): L97.909 - NON-PRS CHRONIC ULC UNSP PRT OF UNSP LOW LEG W UNSP SEVERITY (5) Hypercholesterolemia Code(s): E78.00 - PURE HYPERCHOLESTEROLEMIA, UNSPECIFIED (6) CVA (cerebral vascular accident) Code(s): I63.9 - CEREBRAL INFARCTION, UNSPECIFIED Qualifiers: CVA mechanism: unspecified Qualified Code(s): I63.9 - Cerebral infarction, unspecified Assessment/Plan IV Lasix ECHO to evaluate LV funtion Cardiology consult; case was d/w Dr. Quiñones at bedside Admit to monitor bed Surgery consult for leg ulcer, probable PAD AM labs
[2018-08-05] MEDS ORDERED: SOTALOL HCL 80 MG TABLET (FP) PO ONE (18:30)
[2018-08-05] MEDS ORDERED: FUROSEMIDE 40 MG/4 ML INJECTABLE VIAL IVPUSH ONE (19:12)
[2018-08-05] MEDS ORDERED: FUROSEMIDE 40 MG/4 ML INJECTABLE VIAL ONE (19:57)
[2018-08-05] MEDS ORDERED: WARFARIN NA 1 MG TABLET (FP) ONE (19:57)
[2018-08-05] MEDS: WARFARIN NA 3 MG TABLET PO SCH (20:07)
[2018-08-05] MEDS: SOTALOL HCL 80 MG TABLET (FP) PO SCH (20:07)
--- NOTE | 2018-08-05 20:34 | CONS ---
CARDIOLOGY CONSULTATION DATE OF CONSULTATION: 08/05/2018 REQUESTING PHYSICIAN: Dr. Schmitz CHIEF COMPLAINTS: 1. Shortness of breath. 2. Lower extremity pedal edema. 3. Ulceration involving the lower extremities. 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 She has longstanding history of hypertension, hypertensive cardiovascular disease, hypercholesterolemia, history of congestive heart failure related to left ventricular diastolic dysfunction, paroxysmal atrial fibrillation, status post cerebrovascular accident back in August, followed by a prolonged hospitalization. Since her discharge from a senior care facility, she has been living alone in her house and has been having difficulty coping with her day-to-day activity. She denies having chest pain or discomfort either at rest or with exertion. She has been experiencing dyspnea for the past several days, mostly on exertion. Denies having paroxysmal nocturnal dyspnea. Has intermittent pedal edema. There is no history of palpitations, lightheadedness, dizziness, presyncope, or syncope reported. Patient was advised to come to the emergency room and was brought here by her friend. PAST HISTORY: As mentioned in the history of present illness. History of septicemia related to renal lithiasis. History of hyperuricemia. SURGICAL HISTORY: Status post hysterectomy for a large fibroid. 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 She is a . Has 1 son who is a counseling case manager. She used to smoke, stopped several years ago. Has a social drink. FAMILY HISTORY: Mother in her 60s, apparently related to an infectious process. Father in his 50s due to complications of carcinoma of the colon. He had history of coronary artery disease and hypertension. Has 1 brother who has dilated cardiomyopathy, has permanent atrial fibrillation, has had congestive heart failure, and has chronic lymphocytic leukemia. ALLERGIES: None reported. MEDICATION: Her pharmacy was called, and she has been on the following medications. 1. Lasix 20 mg p.o. daily. 2. Sotalol AF 80 mg 1/2 tablet p.o. b.i.d. 3. Rosuvastatin 10 mg p.o. daily. 4. Warfarin 2 mg. She generally takes 2 mg plus 2 mg plus 3 mg. 5. Triamcinolone cream 0.025%. 6. Aspirin 81 mg p.o. daily. REVIEW OF SYSTEMS: Constitutional: No history of chills, fever, or night sweats reported. No history of unintentional weight loss. HEENT: No history of headaches. History of bilateral retinal puckering, status post right cataract extraction and intraocular lens implantation. No history of diplopia or blurred vision reported. No history of epistaxis, hoarseness, tinnitus, or deafness. Cardiovascular: See history of present illness. Respiratory: No history of cough, expectoration, or hemoptysis. Gastrointestinal: No history of nausea, vomiting, melena, or hematemesis. No history of abdominal pain or discomfort. History of an incisional hernia. Musculoskeletal: History of arthralgias involving both knees and ankles. Endocrine: No history of polyuria or polydipsia. No history of intolerance to cold or warm weather. Hematological: No history of anemia, bleeding, or ecchymosis. PHYSICAL EXAMINATION: General: An 83-year-old female who is alert, in no acute distress. No pallor, cyanosis, clubbing, or jaundice. Vital Signs: Blood pressure 188/69 mmHg. Pulse 64 beats per minute and regular. Temperature 97.8 degrees Fahrenheit. Respirations 20 per minute. Oxygen saturation 97% on room air. Neck: Supple. Jugular venous distention at 30 degrees with positive hepatojugular reflux. Carotids were 2+. Upstrokes were normal. No bruits were heard, and no thyromegaly was present. Heart: PMI was in the fifth intercostal space. No heaves or thrills. S1 and S2 were normal. A grade 1/6 apical systolic murmur was heard. There was an S4 gallop at the apex. No diastolic murmur was heard. Lungs: Clear with decreased breath sounds at the bases. Abdomen: Soft, protuberant, and nontender. No hepatosplenomegaly or palpable masses were felt. There was a reducible surgical hernia. Bowel sounds are present. No bruits were heard. Extremities: There were stasis changes involving both lower extremities. There was ulceration involving the left lower extremity involving the posterior calf and lateral calf. There was hyperemia involving the right lower extremity. There were deformities of her toes. Dorsalis pedis and posterior tibial pulses were weak. Femoral pulses were 2+. LABORATORY DATA: CBC: WBC count 17,900, hemoglobin 13.0 g/dL, platelet count 249,000. Neutrophils were 72.2%; lymphocytes 6.8%; monocytes were elevated at 18.8%; eosinophils 1.6%; basophils 0.6%. INR was pending. Chemistry: Sodium 144, potassium 4.6, chloride 106, CO2 of 31 mmol/L. BUN 19, creatinine 0.7 mg/dL. Random glucose was 93 mg/dL. Calcium 8.4 mg/dL. BNP was 5661.6. Albumin was 3.3, and total protein was 6.6. X-ray chest revealed bilateral increased interstitial markings that have slightly worsened since the prior chest x-ray dated September 19, 2017 and January 14, 2018. This may be on the basis of mild pulmonary venous congestion superimposed over chronic interstitial lung disease. Correlate clinically and followup is needed. IMPRESSION: 1. Congestive heart failure, [place] Heart Classification 2. 2. Hypertension, hypertensive cardiovascular disease, poorly controlled. 3. Left ventricular diastolic dysfunction. 4. Hypercholesterolemia. 5. Embolic in etiology. 6. Paroxysmal atrial fibrillation, currently in sinus rhythm. 7. Ulceration involving the left lower extremity and hyperemia and stasis of the right lower extremity. Possibility of cellulitis needs to be excluded. 8. History of hyperuricemia. RECOMMENDATIONS: 1. Consider adding ARB of her persistent elevation of blood pressure. 2. Resume Lasix initially intravenously and then p.o. 3. Continue Coumadin according to INR. 4. Peripheral arterial Dopplers. 5. Vascular surgical evaluation. 6. If blood pressure remains elevated, further addition of antihypertensive therapy would be warranted. 7. Echocardiogram for evaluation of left ventricular function. 8. Followup chest x-ray. 9. Follow the ECG and enzymes. 10. T3, T4, TSH. PROGNOSIS: Guarded. Thank you for your referral. Yours sincerely, DOUG CUETO M.D. [id number]
[2018-08-06] MEDS ORDERED: amLODIPine BESYLATE 2.5 MG TABLET (FP) PO ONE (04:15)
[2018-08-06 07:10] LABS: HEMATOCRIT 35.6 % (32.4-45.2); HEMOGLOBIN 12.5 GM/dL (10.7-15.3); MCH 31.1 pg (25.7-33.7); MCHC 35.3 g/dl (32.0-36.0); MEAN CELL VOLUME 88.1 fl (80-96); MEAN PLT VOLUME 8.3 fl (7.5-11.1); PLATELET COUNT 241 K/MM3 (134-434); RBC 4.04 M/mm3 (3.60-5.2); RDW 12.9 % (11.6-15.6); WHITE BLOOD COUNT 13.1 K/mm3 (4.0-10.0)
[2018-08-06 07:37] LABS: ALBUMIN 2.7 g/dl (3.4-5.0); ALK PHOS 87 U/L (45-117); ANION GAP 8 MMOL/L (8-16); BILIRUBIN,TOTAL 1.4 mg/dL (0.2-1); BLOOD UREA NITROGEN 21 mg/dL (7-18); CALCIUM 7.8 mg/dL (8.5-10.1); CHLORIDE 104 mmol/L (98-107); CO2 31 mmol/L (21-32); CREATININE 0.8 mg/dL (0.55-1.3); GLUCOSE,RANDOM 111 mg/dL (74-106); POTASSIUM 3.5 mmol/L (3.5-5.1); SGOT/AST 17 U/L (15-37); SGPT/ALT 16 U/L (13-61); SODIUM 142 mmol/L (136-145); TOT PROT 5.6 g/dl (6.4-8.2)
--- NOTE | 2018-08-06 08:11 | CONSULT ---
- Consultation REQUESTING PROVIDER: CONSULT REQUEST: We have been asked to surgically evaluate this patient for chronic Left LE ulcer. 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 Quiñones for evaluation of shortness of breath. She reports having a chronic wound on her Left leg after bumping it several weeks ago. She was instructed to follow up in the wound care clinic but never went because she didn't have anyone to drive her. She denies any CP, SOB, N/V, fever or chills. PMHx: Afib RAYNA DVT HNT DIC kidney stones hyperlipemia PSHx: Hysterectomy Home Medications Medication Instructions Recorded Aspirin [ASA -] 81 mg PO DAILY #0 tab.chew 09/22/17 Rosuvastatin Calcium [Crestor] 10 mg PO DAILY 01/14/18 Warfarin Na [Coumadin -] 2 mg PO DAILY@1800 01/14/18 Furosemide [Lasix -] 20 mg PO DAILY #30 tablet 01/19/18 Sotalol HCl [Betapace -] 40 mg PO BID #30 tablet 01/19/18 Allergies Allergy/AdvReac Type Severity Reaction Status Date / Time No Known Allergies Allergy Verified 08/05/18 11:12 REVIEW OF SYSTEMS: CONSTITUTIONAL: Absent: fever, chills, diaphoresis, generalized weakness, malaise, CARDIOVASCULAR: Absent: chest pain, syncope, + irregular heart rate, RESPIRATORY: Absent: cough, + shortness of breath, dyspnea with exertion, + Orthopnea GASTROINTESTINAL: Absent: abdominal pain, abdominal distension, nausea, vomiting, diarrhea GENITOURINARY: Absent: dysuria, frequency, urgency, MUSCULOSKELETAL: Absent: myalgia, + arthralgia, joint swelling, back pain, neck pain SKIN: Absent: rash, itching, pallor HEMATOLOGIC/IMMUNOLOGIC: Absent: easy bleeding, easy bruising, NEUROLOGIC: Absent: headache, focal weakness, paresthesias, bladder or bowel incontinence PSYCHIATRIC: Absent: anxiety, depression, suicidal or homicidal ideation, hallucinations. PHYSICAL EXAM: GENERAL: Awake, alert, and fully oriented, in no acute distress. HEAD: Normal with no signs of trauma. EYES: sclera anicteric, conjunctiva clear. LUNGS: No auditory wheezes, No accessory muscle use. MUSCULOSKELETAL: Moving all extremities without limitation, No bony deformities or tenderness. UPPER EXTREMITIES: 2+ pulses, warm, well-perfused. No peripheral edema. LOWER EXTREMITIES: Left LE with [id number] healing ulcer over the posterior aspect of the calf with well defined boarders and scabbed over base,no evidence of d/c or foul smell, Some mild erythema surrounding wound, Several small healing wound seen over b/l LE at various stages consistent with patient reported injuries from bumping into things, 1+ pulses, warm, well-perfused. + calf tenderness around wound. No peripheral edema. NEUROLOGICAL: Normal speech, gait not observed. PSYCH: Cooperative. Good eye contact. Appropriate mood and affect. SKIN: Warm, dry, normal turgor, no rashes or lesions noted. Vital Signs Temperature 98 F 08/06/18 02:00 Pulse Rate 68 08/06/18 02:00 Respiratory Rate 20 08/06/18 02:00 Blood Pressure 189/84 H 08/06/18 02:00 O2 Sat by Pulse Oximetry (%) 94 L 08/05/18 23:05 Lab Results WBC 13.1 K/mm3 (4.0-10.0) H 08/06/18 05:30 RBC 4.04 M/mm3 (3.60-5.2) 08/06/18 05:30 Hgb 12.5 GM/dL (10.7-15.3) 08/06/18 05:30 Hct 35.6 % (32.4-45.2) 08/06/18 05:30 MCV 88.1 fl (80-96) 08/06/18 05:30 MCHC 35.3 g/dl (32.0-36.0) 08/06/18 05:30 RDW 12.9 % (11.6-15.6) 08/06/18 05:30 Plt Count 241 K/MM3 (134-434) 08/06/18 05:30 Sodium 142 mmol/L (136-145) 08/06/18 05:30 Potassium 3.5 mmol/L (3.5-5.1) 08/06/18 05:30 Chloride 104 mmol/L (98-107) 08/06/18 05:30 Carbon Dioxide 31 mmol/L (21-32) 08/06/18 05:30 Anion Gap 8 MMOL/L (8-16) 08/06/18 05:30 BUN 21 mg/dL (7-18) H 08/06/18 05:30 Creatinine 0.8 mg/dL (0.55-1.3) 08/06/18 05:30 Random Glucose 111 mg/dL (74-106) H 08/06/18 05:30 Calcium 7.8 mg/dL (8.5-10.1) L 08/06/18 05:30 INR Cancelled 08/05/18 16:00 A/P Left LE chronic wound in the setting of palpable DP pulses and no indication for vascular intervention. Plan: 1) Santyl to left leg wound daily 2) Keep wound dressing clean and dry 3) offload pressure to area 4) Iv ABX per ID/med 5) Re-consult vascular surgery as needed Evaluation and plan discussed with Dr Webster Visit type - Case Type Case Type: ED Admission - Emergency Emergency Visit: Yes ED Registration Date: 08/05/18 Care time: The patient presented to the Emergency Department on the above date and was hospitalized for further evaluation of their emergent condition. - New patient This patient is new to me today: Yes Date on this admission: 08/06/18
[2018-08-06] MEDS: SOTALOL HCL 80 MG TABLET (FP) PO SCH ×2 (08:22→21:11)
[2018-08-06 08:43] LABS: PROTHROMBIN TIME (PATIENT) 55.9 SEC (9.7-13.0)
[2018-08-06 08:52] LABS: INR 4.66 (0.83-1.09)
[2018-08-06] MEDS: FUROSEMIDE 20 MG TABLET (FP) PO SCH (09:33)
[2018-08-06] MEDS: ASPIRIN 81 MG CHEWABLE TABLETS PO SCH (09:33)
[2018-08-06] MEDS ORDERED: FLU VACCINE QUAD 60 MCG/0.5 ML (MDV 18-19) IM ONE (10:00)
--- NOTE | 2018-08-06 10:03 | PN ---
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 Illness: Pt breathing is better. Pt w/o SOB, CP, abd pain. - Current Medication List Current Medications: Active Medications Acetaminophen (Tylenol -) 650 mg PO Q6H PRN PRN Reason: PAIN LEVEL 1-5 Aspirin (Asa -) 81 mg PO DAILY [facility] Last Admin: 08/06/18 09:33 Dose: 81 mg Furosemide (Lasix -) 20 mg PO DAILY [facility] Last Admin: 08/06/18 09:33 Dose: 20 mg Lisinopril (Prinivil) 2.5 mg PO DAILY [facility] Rosuvastatin Calcium (Crestor -) 10 mg PO DAILY [facility] Sotalol HCl (Betapace -) 40 mg PO Q12H [facility] Last Admin: 08/06/18 08:22 Dose: 40 mg Warfarin Sodium (Coumadin -) 3 mg PO DAILY@1800 [facility] Last Admin: 08/05/18 20:07 Dose: 3 mg - Objective Vital Signs: Vital Signs Temperature 98 F 08/06/18 02:00 Pulse Rate 68 08/06/18 02:00 Respiratory Rate 20 08/06/18 02:00 Blood Pressure 189/84 H 08/06/18 02:00 O2 Sat by Pulse Oximetry (%) 94 L 08/05/18 23:05 Constitutional: Yes: No Distress, Calm Cardiovascular: Yes: Regular Rate and Rhythm, S1, S2 Respiratory: Yes: Regular, Rales (crackles at bases) Gastrointestinal: Yes: Normal Bowel Sounds, Soft. No: Tenderness Edema: LLE: Trace, RLE: Trace Labs: CBC, BMP 08/06/18 05:30 08/06/18 05:30 INR, PTT INR 4.66 (0.83-1.09) H* 08/06/18 05:30 Problem List - Problems (1) Acute exacerbation of CHF (congestive heart failure) Code(s): I50.9 - HEART FAILURE, UNSPECIFIED (2) HTN (hypertension) Code(s): I10 - ESSENTIAL (PRIMARY) HYPERTENSION (3) Paroxysmal A-fib Code(s): I48.0 - PAROXYSMAL ATRIAL FIBRILLATION (4) Leg ulcer Code(s): L97.909 - NON-PRS CHRONIC ULC UNSP PRT OF UNSP LOW LEG W UNSP SEVERITY (5) Hypercholesterolemia Code(s): E78.00 - PURE HYPERCHOLESTEROLEMIA, UNSPECIFIED (6) CVA (cerebral vascular accident) Code(s): I63.9 - CEREBRAL INFARCTION, UNSPECIFIED Qualifiers: CVA mechanism: unspecified Qualified Code(s): I63.9 - Cerebral infarction, unspecified Assessment/Plan Admitted to Telemetry Lasix ECHO to evaluate LV function To f/u with Dr. Quiñones. Pt agrees with trial of Lisinopril Surgery consult for leg ulcer, probable PAD AM labs Case was d/w pt's nurse
--- NOTE | 2018-08-06 11:24 | PN ---
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 (short form) - Note 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: 83 year old femake admirred with SOB and wheezing and accelerated hypertension found to be acute LV failure. H/o of CVA, paroxysmal atrial fib. hypercholesterolemia. No further wheezing or SOB, No chest pain or discomfort, no palpitations. Active Medications Acetaminophen (Tylenol -) 650 mg PO Q6H PRN PRN Reason: PAIN LEVEL 1-5 Aspirin (Asa -) 81 mg PO DAILY [facility] Last Admin: 08/06/18 09:33 Dose: 81 mg Furosemide (Lasix -) 20 mg PO DAILY [facility] Last Admin: 08/06/18 09:33 Dose: 20 mg Lisinopril (Prinivil) 2.5 mg PO DAILY [facility] Rosuvastatin Calcium (Crestor -) 10 mg PO DAILY [facility] Sotalol HCl (Betapace -) 40 mg PO Q12H [facility] Last Admin: 08/06/18 08:22 Dose: 40 mg Warfarin Sodium (Coumadin -) 3 mg PO DAILY@1800 [facility] Last Admin: 08/05/18 20:07 Dose: 3 mg 83 year old female in no distress, no pallor, cyanosis, clubbing or jaundice. NECK; Supple, no JVD, carotids 2+, no bruits or thyromegaly. HEART: PMI in the 5th ICS, no heaves or thrills. Grade I/ apical systolic murmur, no gallops. LUNGS: Clear on auscultation. ABDOMEN: Soft, nontender, no organomegaly. Incisional hernia. EXTREMITIES: Trace left ankle edema. ulcerations left calf, slight hyperemia of the right lower calf. CBC, BMP 08/06/18 05:30 08/06/18 05:30 IMPRESSION: 1. Acute LV failure, etilogy: a). Accelerated hypertension. b). LV diastolic dysfunction. 2. Hypercholesrerolemia 3. S/p CVA. 4. Left lower extremity ulcerations. 5. Paroxysmal atrial fif. RECOMMENDATIONS: 1. Add Benicar 20mg.po daily and d/c lisinopril as BP is elevated 2. F/u BMP. 3. Close f/u of K levels.
--- NOTE | 2018-08-06 12:09 | EKG ---
Test Reason : Blood Pressure : / mmHG Vent. Rate : 065 BPM Atrial Rate : 065 BPM P-R Int : 136 ms QRS Dur : 080 ms QT Int : 454 ms P-R-T Axes : 043 068 063 degrees QTc Int : 472 ms POOR DATA QUALITY, INTERPRETATION MAY BE ADVERSELY AFFECTED NORMAL SINUS RHYTHM NORMAL ECG Confirmed by MD KALEN, YAAKOV ([id number]) on 08/06/2018 12:09:08 PM Referred By: Confirmed By:YAAKOV HIGUERA MD
[2018-08-06] MEDS: LISINOPRIL 5 MG TABLET (FP) PO SCH (12:15)
--- NOTE | 2018-08-06 14:14 | ECHO ---
Name: NILAY GUZMAN Exam:Adult Echocardiogram Study Date: 08/06/2018 11:01 AM Age: 83 yrs Reason For Study: EVALUATE LVF Height: 65 in Weight: 119 lb BSA: 1.6 m2 MMode/2D Measurements & Calculations IVSd: 1.0 cm Ao root diam: 2.5 cm LVIDd: 4.4 cm LA dimension: 3.8 cm LVIDs: 3.2 cm LVPWd: 0.83 cm EDV(Teich): 87.2 ml ESV(Teich): 40.7 ml Doppler Measurements & Calculations MV E max helena: 78.3 cm/sec MR max helena: 511.2 cm/sec MV A max helena: 62.9 cm/sec MR max P.6 mmHg MV E/A: 1.2 MV dec time: 0.15 sec Med Peak E' Helena: 5.9 cm/sec Med E/e': 13.2 Lat Peak E' Helena: 6.3 cm/sec Lat E/e': 12.3 Procedure A complete two-dimensional transthoracic echocardiogram was performed (2D, M-mode, Doppler and color flow Doppler). The study was technically good with many images being of high quality. Left Ventricle The left ventricular size, thickness and function are normal. The left ventricular ejection fraction is normal. Ejection Fraction = 60%. Diastolic dysfunction, Grade II (pseudonormalization pattern). Right Ventricle The right ventricle is normal in size and function. Atria Normal left and right atrial size and function. Mitral Valve There is moderate mitral annular calcification. There is mild mitral regurgitation. Tricuspid Valve The tricuspid valve is normal in structure and function. There is trace tricuspid regurgitation. Aortic Valve The aortic valve is normal in structure and function. Pulmonic Valve The pulmonic valve is not well visualized. Great Vessels The aortic root is normal size. Pericardium/Pleura There is no pericardial effusion. Interpretation Summary The left ventricular size, thickness and function are normal The right ventricle is normal in size and function. There is moderate mitral annular calcification. There is mild mitral regurgitation. Stanley New 08/06/2018 02:14 PM
[2018-08-06] MEDS: WARFARIN NA 3 MG TABLET PO SCH (17:28)
[2018-08-06] MEDS: COLLAGENASE CLOSTRIDIUM HIST. 30 GRAMS TUBE TP SCH (21:10)
[2018-08-06] MEDS: ROSUVASTATIN CA 10 MG TABLET (FP) PO SCH (21:12)
[2018-08-06] MEDS: ACETAMINOPHEN 325 MG TABLET (FP) PO PRN (23:19)
[2018-08-07 06:26] LABS: HEMATOCRIT 39.4 % (32.4-45.2); HEMOGLOBIN 13.4 GM/dL (10.7-15.3); MCH 30.2 pg (25.7-33.7); MCHC 34.1 g/dl (32.0-36.0); MEAN CELL VOLUME 88.5 fl (80-96); MEAN PLT VOLUME 8.4 fl (7.5-11.1); PLATELET COUNT 257 K/MM3 (134-434); RBC 4.45 M/mm3 (3.60-5.2); WHITE BLOOD COUNT 11.9 K/mm3 (4.0-10.0)
[2018-08-07 07:00] LABS: ANION GAP 7 MMOL/L (8-16); BLOOD UREA NITROGEN 25 mg/dL (7-18); CALCIUM 8.1 mg/dL (8.5-10.1); CHLORIDE 106 mmol/L (98-107); CO2 31 mmol/L (21-32); CREATININE 0.9 mg/dL (0.55-1.3); GLUCOSE,RANDOM 105 mg/dL (74-106); MAGNESIUM 2.4 mg/dL (1.8-2.4); POTASSIUM 4.7 mmol/L (3.5-5.1); SODIUM 143 mmol/L (136-145)
[2018-08-07] MEDS: SOTALOL HCL 80 MG TABLET (FP) PO SCH ×2 (08:07→20:14)
[2018-08-07] MEDS: ASPIRIN 81 MG CHEWABLE TABLETS PO SCH (09:57)
[2018-08-07] MEDS: FUROSEMIDE 20 MG TABLET (FP) PO SCH (09:57)
[2018-08-07] MEDS: COLLAGENASE CLOSTRIDIUM HIST. 30 GRAMS TUBE TP SCH (10:00)
--- NOTE | 2018-08-07 10:08 | PN ---
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 (short form) - Note 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: 83 year old female admitted with SOB and wheezing and accelerated hypertension found to be acute LV failure. H/o of CVA, paroxysmal atrial fib. hypercholesterolemia. No further wheezing or SOB, No chest pain or discomfort, no palpitations. Blood pressure remains elevated and suggested to start her on Benicar which is non- formulary. Active Medications Acetaminophen (Tylenol -) 650 mg PO Q6H PRN PRN Reason: PAIN LEVEL 1-5 Last Admin: 08/06/18 23:19 Dose: 650 mg Aspirin (Asa -) 81 mg PO DAILY [facility] Last Admin: 08/06/18 09:33 Dose: 81 mg Collagenase (Santyl -) 1 applic TP DAILY [facility]; Protocol Last Admin: 08/06/18 21:10 Dose: 1 applic Furosemide (Lasix -) 20 mg PO DAILY [facility] Last Admin: 08/06/18 09:33 Dose: 20 mg Lisinopril (Prinivil) 2.5 mg PO DAILY [facility] Last Admin: 08/06/18 12:15 Dose: 2.5 mg Rosuvastatin Calcium (Crestor -) 10 mg PO DAILY [facility] Last Admin: 08/06/18 21:12 Dose: 10 mg Sotalol HCl (Betapace -) 40 mg PO Q12H [facility] Last Admin: 08/07/18 08:07 Dose: 40 mg Warfarin Sodium (Coumadin -) 3 mg PO DAILY@1800 [facility] Last Admin: 08/06/18 17:28 Dose: Not Given 83 year old female in no distress, no pallor, cyanosis, clubbing or jaundice. NECK; Supple, no JVD, carotids 2+, no bruits or thyromegaly. HEART: PMI in the 5th ICS, no heaves or thrills. Grade I/ apical systolic murmur, no gallops. LUNGS: Clear on auscultation. ABDOMEN: Soft, nontender, no organomegaly. Incisional hernia. EXTREMITIES: Trace left ankle edema. ulcerations left calf, slight hyperemia of the right lower calf. CBC, BMP 08/07/18 05:30 08/07/18 05:30 IMPRESSION: 1. Acute LV failure, etiology: a). Accelerated hypertension. b). LV diastolic dysfunction. 2. Hypercholesterolemia 3. S/p CVA. 4. Left lower extremity ulcerations. 5. Paroxysmal atrial fibrillation, currently in sinus rhythm. RECOMMENDATIONS: 1. Trial with Losartan 50 mg PO daily and titrate to 100 mg if necessary. 2. D/c Lisinopril. 3. Close f/u of K levels. 4. Peripheral arterial dopplers.
[2018-08-07] MEDS: LISINOPRIL 5 MG TABLET (FP) PO SCH (12:10)
--- NOTE | 2018-08-07 12:10 | PN ---
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, Physician Chief Complaint: in bed NAD no c/o no pain no SOB meds consults tests reviewed and d/w pt - Current Medication List Current Medications: Active Medications Acetaminophen (Tylenol -) 650 mg PO Q6H PRN PRN Reason: PAIN LEVEL 1-5 Last Admin: 08/06/18 23:19 Dose: 650 mg Aspirin (Asa -) 81 mg PO DAILY [facility] Last Admin: 08/07/18 09:57 Dose: 81 mg Collagenase (Santyl -) 1 applic TP DAILY [facility]; Protocol Last Admin: 08/06/18 21:10 Dose: 1 applic Furosemide (Lasix -) 20 mg PO DAILY [facility] Last Admin: 08/07/18 09:57 Dose: 20 mg Losartan Potassium (Cozaar -) 50 mg PO DAILY [facility] Rosuvastatin Calcium (Crestor -) 10 mg PO DAILY [facility] Last Admin: 08/06/18 21:12 Dose: 10 mg Sotalol HCl (Betapace -) 40 mg PO Q12H [facility] Last Admin: 08/07/18 08:07 Dose: 40 mg Warfarin Sodium (Coumadin -) 3 mg PO DAILY@1800 [facility] Last Admin: 08/06/18 17:28 Dose: Not Given - Objective Vital Signs: Vital Signs Temperature 97.5 F L 08/07/18 09:40 Pulse Rate 62 08/07/18 09:40 Respiratory Rate 18 08/07/18 09:40 Blood Pressure 175/64 H 08/07/18 09:40 O2 Sat by Pulse Oximetry (%) 96 08/07/18 09:00 Constitutional: Yes: No Distress, Calm Eyes: Yes: Conjunctiva Clear HENT: Yes: Atraumatic Neck: Yes: Supple Cardiovascular: Yes: Regular Rate and Rhythm Respiratory: Yes: CTA Bilaterally Gastrointestinal: Yes: Soft Genitourinary: No: CVA Tenderness - Left, CVA Tenderness - Right Musculoskeletal: No: Joint Stiffness, Joint Swelling Extremities: No: Cold, Cool Edema: No Integumentary: Yes: Rash (below knees bilat) Wound/Incision: Yes: Open to air (L wound around L ankle no draiange) Neurological: Yes: WNL, Alert, Oriented ...Motor Strength: WNL Psychiatric: Yes: WNL, Alert, Oriented. No: Agitated, Suicidal Ideation Labs: CBC, BMP 08/07/18 05:30 08/07/18 05:30 INR, PTT INR 4.66 (0.83-1.09) H* 08/06/18 05:30 - ....Imaging Other: Report Reviewed Assessment/Plan The patient is an 82 year old female h/o ASHD CHF AFib (on Coumadin), CVA (x4, last in 08/2017), DVT, HTN, DIC, septic shock secondary to kidney stones, and hyperlipidemia admitted with shortness of breath CHF exac; failure to thrive; L leg wound PVR r/o PVD pending I suggested ID kaylene pt wants to hold off for now said she just finished ATB po for teeth and did not help her wound (Not sure what ATB). surgery f/u cardiology f/u falls decubs DVT pfx d/w pt and staff; PT and business case analyst kaylene
[2018-08-07] MEDS: LOSARTAN POTASSIUM 50 MG TABLET (FP) PO SCH (12:20)
[2018-08-07] MEDS: ROSUVASTATIN CA 10 MG TABLET (FP) PO SCH (21:13)
[2018-08-07 21:36] LABS: INR 2.34 (0.83-1.09); PROTHROMBIN TIME (PATIENT) 27.8 SEC (9.7-13.0)
[2018-08-07] MEDS: WARFARIN NA 3 MG TABLET PO SCH (22:32)
[2018-08-08] MEDS: ASPIRIN 81 MG CHEWABLE TABLETS PO SCH (09:08)
[2018-08-08] MEDS: FUROSEMIDE 20 MG TABLET (FP) PO SCH (09:09)
[2018-08-08] MEDS: SOTALOL HCL 80 MG TABLET (FP) PO SCH ×2 (09:09→22:01)
[2018-08-08] MEDS: COLLAGENASE CLOSTRIDIUM HIST. 30 GRAMS TUBE TP SCH (09:09)
[2018-08-08] MEDS: LOSARTAN POTASSIUM 50 MG TABLET (FP) PO SCH (09:09)
--- NOTE | 2018-08-08 09:41 | PN ---
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, Physician Chief Complaint: in bed awake alert NAD VSS no new co PVR c/w moderate PVD bilateral d/w pt and dr Quiñones at bedside - will ask ID and vascular sx f/u pt agreed - Current Medication List Current Medications: Active Medications Acetaminophen (Tylenol -) 650 mg PO Q6H PRN PRN Reason: PAIN LEVEL 1-5 Last Admin: 08/06/18 23:19 Dose: 650 mg Aspirin (Asa -) 81 mg PO DAILY [facility] Last Admin: 08/08/18 09:08 Dose: 81 mg Collagenase (Santyl -) 1 applic TP DAILY [facility]; Protocol Last Admin: 08/08/18 09:09 Dose: 1 applic Furosemide (Lasix -) 20 mg PO DAILY [facility] Last Admin: 08/08/18 09:09 Dose: 20 mg Losartan Potassium (Cozaar -) 50 mg PO DAILY [facility] Last Admin: 08/08/18 09:09 Dose: 50 mg Rosuvastatin Calcium (Crestor -) 10 mg PO DAILY [facility] Last Admin: 08/07/18 21:13 Dose: 10 mg Sotalol HCl (Betapace -) 40 mg PO Q12H [facility] Last Admin: 08/08/18 09:09 Dose: 40 mg Warfarin Sodium (Coumadin -) 3 mg PO DAILY@1800 [facility] Last Admin: 08/07/18 22:32 Dose: 3 mg - Objective Vital Signs: Vital Signs Temperature 97.7 F 08/08/18 09:16 Pulse Rate 70 08/08/18 09:16 Respiratory Rate 20 08/08/18 09:16 Blood Pressure 187/75 H 08/08/18 09:16 O2 Sat by Pulse Oximetry (%) 98 08/07/18 21:00 Constitutional: Yes: No Distress, Calm Eyes: Yes: Conjunctiva Clear HENT: Yes: Atraumatic Neck: Yes: Supple Cardiovascular: Yes: Regular Rate and Rhythm Respiratory: Yes: CTA Bilaterally Gastrointestinal: Yes: Soft. No: Distention Genitourinary: No: Hematuria Musculoskeletal: No: Joint Stiffness, Joint Swelling Extremities: No: Cold, Cool Edema: No Integumentary: Yes: Rash (legs) Wound/Incision: Yes: Open to air (L leg) Neurological: Yes: WNL, Alert, Oriented ...Motor Strength: WNL Psychiatric: Yes: WNL, Alert, Oriented. No: Agitated, Suicidal Ideation Labs: CBC, BMP 08/07/18 05:30 08/07/18 05:30 INR, PTT INR 2.34 (0.83-1.09) H 08/07/18 20:00 - ....Imaging Other: Report Reviewed Assessment/Plan The patient is an 82 year old female h/o ASHD CHF AFib (on Coumadin), CVA (x4, last in 08/2017), DVT, HTN, DIC, septic shock secondary to kidney stones, and hyperlipidemia admitted with shortness of breath CHF exac; failure to thrive; L leg wound PVR r/o PVD pending I suggested ID eval pt wants to hold off for now said she just finished ATB po for teeth and did not help her wound (Not sure what ATB). surgery f/u cardiology f/u; ID and vascular sx eval falls decubs DVT pfx d/w pt and staff; PT and briefcase sewer kaylene
--- NOTE | 2018-08-08 10:31 | PN ---
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 (short form) - Note 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: 83 year old female admitted with SOB and wheezing and accelerated hypertension found to be acute LV failure. H/o of CVA, paroxysmal atrial fib. hypercholesterolemia. Hypertension remains poorly controlled.No further wheezing or SOB, No chest pain or discomfort, no palpitations. Blood pressure remains elevated and suggested to start her on Benicar which is non-formulary. Active Medications Acetaminophen (Tylenol -) 650 mg PO Q6H PRN PRN Reason: PAIN LEVEL 1-5 Last Admin: 08/06/18 23:19 Dose: 650 mg Aspirin (Asa -) 81 mg PO DAILY [facility] Last Admin: 08/06/18 09:33 Dose: 81 mg Collagenase (Santyl -) 1 applic TP DAILY [facility]; Protocol Last Admin: 08/06/18 21:10 Dose: 1 applic Furosemide (Lasix -) 20 mg PO DAILY [facility] Last Admin: 08/06/18 09:33 Dose: 20 mg Lisinopril (Prinivil) 2.5 mg PO DAILY [facility] Last Admin: 08/06/18 12:15 Dose: 2.5 mg Rosuvastatin Calcium (Crestor -) 10 mg PO DAILY [facility] Last Admin: 08/06/18 21:12 Dose: 10 mg Sotalol HCl (Betapace -) 40 mg PO Q12H [facility] Last Admin: 08/07/18 08:07 Dose: 40 mg Warfarin Sodium (Coumadin -) 3 mg PO DAILY@1800 [facility] Last Admin: 08/06/18 17:28 Dose: Not Given 83 year old female in no distress, no pallor, cyanosis, clubbing or jaundice. NECK; Supple, no JVD, carotids 2+, no bruits or thyromegaly. HEART: PMI in the 5th ICS, no heaves or thrills. Grade I/ apical systolic murmur, no gallops. LUNGS: Clear on auscultation. ABDOMEN: Soft, nontender, no organomegaly. Incisional hernia. EXTREMITIES: Trace left ankle edema. ulcerations left calf, slight hyperemia of the right lower calf. CBC, BMP 08/07/18 05:30 08/07/18 05:30 IMPRESSION: 1. Acute LV failure, etiology: a). Accelerated hypertension. b). LV diastolic dysfunction. 2. Hypercholesterolemia 3. S/p CVA. 4. Left lower extremity ulcerations. 5. Paroxysmal atrial fibrillation, currently in sinus rhythm. RECOMMENDATIONS: 1. Trial with Losartan 50 mg PO daily and titrate to 100 mg if necessary. 2. D/c Lisinopril. 3. Close f/u of K levels. 4. Peripheral arterial dopplers.
[2018-08-08] MEDS ORDERED: LOSARTAN POTASSIUM 50 MG TABLET (FP) PO ONE (12:30)
[2018-08-08 14:14] LABS: INR 2.45 (0.83-1.09); PROTHROMBIN TIME (PATIENT) 29.2 SEC (9.7-13.0)
[2018-08-08] MEDS: WARFARIN NA 3 MG TABLET PO SCH (17:07)
--- NOTE | 2018-08-08 17:57 | PN ---
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 (short form) - Note 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: ID Consult dictated Cellulitis LE L LE ulcer Leukocytosis R/O sepsis secondary to skin source Obtain blood c/s Cefazolin 1gm IVPB q8h
[2018-08-08] MEDS ORDERED: DEXTROSE 5%-WATER - 50 ML IVPB ONE (18:12)
[2018-08-08] MEDS ORDERED: ceFAZolin SODIUM 1 GM VIAL ONE (18:12)
--- NOTE | 2018-08-08 18:18 | CONS ---
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 She was admitted to the hospital on August 05, 2018, with worsening shortness of breath and chest discomfort. She was diagnosed with congestive heart failure. Her hospital course was significant for elevated white blood cell count and erythema of the lower extremities bilaterally. She has a nonhealing ulceration present over the Achilles tendon area of the left lower extremity. She denies any pain. She states the wound began after she rubbed an area over hard surface. She denies any purulent drainage, no associated fever or chills. PAST MEDICAL HISTORY: Positive for atrial fibrillation, stroke, hypertension, nephrolithiasis, hyperlipidemia, DVT. PAST SURGICAL HISTORY: Status post hysterectomy. ALLERGIES: No known allergies. MEDICATION: Aspirin, Crestor, Coumadin, Lasix, sotalol. 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 LABORATORY DATA: White count on admission 17.9, presently 11.9. Hematocrit 39.4, platelet count 257, BUN 25, creatinine 0.9. PHYSICAL EXAMINATION: General: On exam, she is awake and alert, she is seated in bed eating dinner. Vital signs: Temperature 97.9, blood pressure 164/56, pulse 69 regular, respirations 18 per minute. HEENT: Sclerae anicteric. Cardiovascular: Heart sounds S1, S2. Irregular. Lungs: Clear. Abdomen: Soft, no tenderness elicited. Extremities: Examination of lower extremities, 1+ lower extremity edema. There is confluent erythema and warmth present over the distal left lower extremity from the mid calf to the foot. There is an ulceration present over the Achilles tendon area which appears superficial. No purulent drainage is noted. There is erythema involving the distal left lower extremity to a lesser degree. No open areas noted. IMPRESSION: 1. Bilateral lower extremity cellulitis. 2. Leukocytosis, rule out sepsis secondary to skin source. 3. Nonhealing left lower extremity ulcer. Will obtain blood cultures. Empiric antibiotic coverage with cephazolin 1 g IV piggyback every 8 hours, elevation, local wound care, will follow, thank you for the kind referral. ANDREI STRONG M.D. [id number]
[2018-08-08] MEDS: CEFAZOLIN 1 GM in DEXTROSE 5%-WATER - 50 ML IVPB SCH (18:22)
[2018-08-08] MEDS: ROSUVASTATIN CA 10 MG TABLET (FP) PO SCH (22:02)
[2018-08-09] MEDS ORDERED: ceFAZolin SODIUM 1 GM VIAL ONE ×3 (00:58→17:27)
[2018-08-09] MEDS ORDERED: DEXTROSE 5%-WATER - 50 ML IVPB ONE ×3 (00:58→17:27)
[2018-08-09] MEDS: CEFAZOLIN 1 GM in DEXTROSE 5%-WATER - 50 ML IVPB SCH ×3 (01:21→17:42)
[2018-08-09] MEDS: LOSARTAN POTASSIUM 50 MG TABLET (FP) PO SCH (06:45)
[2018-08-09 07:25] LABS: BASO % 0.9 % (0-2.0); EOS % 4.6 % (0-4.5); HEMATOCRIT 38.5 % (32.4-45.2); HEMOGLOBIN 12.5 GM/dL (10.7-15.3); LYMPH % 10.6 % (8-40); MCH 28.8 pg (25.7-33.7); MCHC 32.6 g/dl (32.0-36.0); MEAN CELL VOLUME 88.5 fl (80-96); MEAN PLT VOLUME 8.4 fl (7.5-11.1); MONO % 17.3 % (3.8-10.2); NEUT % 66.6 % (42.8-82.8); PLATELET COUNT 246 K/MM3 (134-434); RBC 4.36 M/mm3 (3.60-5.2); RDW 13.2 % (11.6-15.6); WHITE BLOOD COUNT 12.2 K/mm3 (4.0-10.0)
[2018-08-09 07:50] LABS: ALBUMIN 2.9 g/dl (3.4-5.0); ALK PHOS 98 U/L (45-117); ANION GAP 6 MMOL/L (8-16); BILIRUBIN,TOTAL 0.4 mg/dL (0.2-1); BLOOD UREA NITROGEN 29 mg/dL (7-18); CALCIUM 8.2 mg/dL (8.5-10.1); CHLORIDE 106 mmol/L (98-107); CO2 30 mmol/L (21-32); CREATININE 0.9 mg/dL (0.55-1.3); GLUCOSE,RANDOM 110 mg/dL (74-106); POTASSIUM 4.8 mmol/L (3.5-5.1); SGOT/AST 19 U/L (15-37); SGPT/ALT 19 U/L (13-61); SODIUM 142 mmol/L (136-145); TOT PROT 5.9 g/dl (6.4-8.2)
[2018-08-09 08:32] LABS: INR 2.43 (0.83-1.09); PROTHROMBIN TIME (PATIENT) 28.9 SEC (9.7-13.0)
--- NOTE | 2018-08-09 10:46 | PN ---
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 Illness: Pt breathing is better. Pt w/o SOB, CP, abd pain. - Current Medication List Current Medications: Active Medications Acetaminophen (Tylenol -) 650 mg PO Q6H PRN PRN Reason: PAIN LEVEL 1-5 Last Admin: 08/06/18 23:19 Dose: 650 mg Aspirin (Asa -) 81 mg PO DAILY [facility] Last Admin: 08/08/18 09:08 Dose: 81 mg Collagenase (Santyl -) 1 applic TP DAILY [facility]; Protocol Last Admin: 08/08/18 09:09 Dose: 1 applic Furosemide (Lasix -) 20 mg PO DAILY [facility] Last Admin: 08/08/18 09:09 Dose: 20 mg Cefazolin Sodium 1 gm/ (Dextrose) 50 mls @ 100 mls/hr IVPB Q8H-IV [facility] Last Admin: 08/09/18 01:21 Dose: 100 mls/hr Losartan Potassium (Cozaar -) 100 mg PO DAILY [facility] Last Admin: 08/09/18 06:45 Dose: 100 mg Rosuvastatin Calcium (Crestor -) 10 mg PO HS [facility] Sotalol HCl (Betapace -) 40 mg PO Q12H [facility] Last Admin: 08/08/18 22:01 Dose: 40 mg Warfarin Sodium (Coumadin -) 3 mg PO DAILY@1800 [facility] Last Admin: 08/08/18 17:07 Dose: 3 mg - Objective Vital Signs: Vital Signs Temperature 97.6 F 08/09/18 03:00 Pulse Rate 64 08/09/18 06:00 Respiratory Rate 18 08/09/18 06:00 Blood Pressure 185/82 H 08/09/18 06:00 O2 Sat by Pulse Oximetry (%) 97 08/08/18 20:52 Constitutional: Yes: No Distress, Calm Cardiovascular: Yes: Regular Rate and Rhythm, S1, S2 Respiratory: Yes: Regular, CTA Bilaterally. No: Rales Gastrointestinal: Yes: Normal Bowel Sounds, Soft. No: Tenderness Edema: LLE: Trace, RLE: Trace Integumentary: Yes: Other (left leg ulcer) Neurological: Yes: Alert, Oriented Labs: CBC, BMP 08/09/18 05:30 08/09/18 05:30 INR, PTT INR 2.43 (0.83-1.09) H 08/09/18 05:30 Problem List - Problems (1) Acute exacerbation of CHF (congestive heart failure) Code(s): I50.9 - HEART FAILURE, UNSPECIFIED (2) HTN (hypertension) Assessment/Plan: uncontrolled last night; pari normal; to monitor. Code(s): I10 - ESSENTIAL (PRIMARY) HYPERTENSION (3) Paroxysmal A-fib Code(s): I48.0 - PAROXYSMAL ATRIAL FIBRILLATION (4) Leg ulcer Code(s): L97.909 - NON-PRS CHRONIC ULC UNSP PRT OF UNSP LOW LEG W UNSP SEVERITY (5) Hypercholesterolemia Code(s): E78.00 - PURE HYPERCHOLESTEROLEMIA, UNSPECIFIED (6) CVA (cerebral vascular accident) Code(s): I63.9 - CEREBRAL INFARCTION, UNSPECIFIED Qualifiers: CVA mechanism: unspecified Qualified Code(s): I63.9 - Cerebral infarction, unspecified (7) Cellulitis Assessment/Plan: of LEs Code(s): L03.90 - CELLULITIS, UNSPECIFIED Qualifiers: Site of cellulitis: extremity Site of cellulitis of extremity: lower extremity Laterality: unspecified laterality Qualified Code(s): L03.119 - Cellulitis of unspecified part of limb Assessment/Plan Admitted to Telemetry Pt on Lasix Cardio, Surgery, ID consults are appreciated AM labs Case was d/w pt's nurse
--- NOTE | 2018-08-09 11:21 | PN ---
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 (short form) - Note 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: 83 year old female admitted with SOB and wheezing and accelerated hypertension found to be acute LV failure. H/o of CVA, paroxysmal atrial fib. hypercholesterolemia. No further wheezing or SOB, no chest pain or discomfort, no palpitations. Dose of Losartan was increased to 100 mg and patient is currently normotensive. Active Medications Acetaminophen (Tylenol -) 650 mg PO Q6H PRN PRN Reason: PAIN LEVEL 1-5 Last Admin: 08/06/18 23:19 Dose: 650 mg Aspirin (Asa -) 81 mg PO DAILY [facility] Last Admin: 08/08/18 09:08 Dose: 81 mg Collagenase (Santyl -) 1 applic TP DAILY [facility]; Protocol Last Admin: 08/08/18 09:09 Dose: 1 applic Furosemide (Lasix -) 20 mg PO DAILY [facility] Last Admin: 08/08/18 09:09 Dose: 20 mg Cefazolin Sodium 1 gm/ (Dextrose) 50 mls @ 100 mls/hr IVPB Q8H-IV [facility] Last Admin: 08/09/18 01:21 Dose: 100 mls/hr Losartan Potassium (Cozaar -) 100 mg PO DAILY [facility] Last Admin: 08/09/18 06:45 Dose: 100 mg Rosuvastatin Calcium (Crestor -) 10 mg PO HS [facility] Sotalol HCl (Betapace -) 40 mg PO Q12H [facility] Last Admin: 08/08/18 22:01 Dose: 40 mg Warfarin Sodium (Coumadin -) 3 mg PO DAILY@1800 [facility] Last Admin: 08/08/18 17:07 Dose: 3 mg 83 year old female in no distress, no pallor, cyanosis, clubbing or jaundice. Last Vital Signs Temp Pulse Resp BP Pulse Ox 97.6 F 64 18 134/47 H 97 08/09/18 03:00 08/09/18 06:00 08/09/18 06:00 08/09/18 06:00 08/08/18 20:52 NECK; Supple, no JVD, carotids 2+, no bruits or thyromegaly. HEART: PMI in the 5th ICS, no heaves or thrills. Grade I/ apical systolic murmur, no gallops. LUNGS: Clear on auscultation. ABDOMEN: Soft, nontender, no organomegaly. Incisional hernia. EXTREMITIES: Trace left ankle edema. ulcerations left calf, slight hyperemia of the right lower calf. CBC, BMP 08/09/18 05:30 08/09/18 05:30 Arterial Lower extremity Doppler 08/07/18: moderate atherosclerotic disease with abnormal flow bilaterally suggesting inflow pathology. IMPRESSION: 1. Acute LV failure, compensated. 2. Hypercholesterolemia 3. S/p CVA. 4. Left lower extremity ulcerations. 5. Paroxysmal atrial fibrillation, currently in sinus rhythm. RECOMMENDATIONS: 1. Continue current therapy. 2. Follow up BMP. 3. Outpatient follow up at the wound care center. 4. Discharge when medically stable.
[2018-08-09] MEDS: ASPIRIN 81 MG CHEWABLE TABLETS PO SCH (11:30)
[2018-08-09] MEDS: SOTALOL HCL 80 MG TABLET (FP) PO SCH ×2 (11:30→21:17)
[2018-08-09] MEDS: FUROSEMIDE 20 MG TABLET (FP) PO SCH (11:31)
[2018-08-09] MEDS: COLLAGENASE CLOSTRIDIUM HIST. 30 GRAMS TUBE TP SCH (11:32)
[2018-08-09 11:36] LABS: ERYTHROCYTE SEDIMENTATION RATE 33 mm/hr (0-30)
--- NOTE | 2018-08-09 11:41 | PN ---
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 Illness: C/O pain at site of L LE ulcer No c/o fever/ chills Afebrile WBC remains elevated Refused blood c/s - Current Medication List Current Medications: Active Medications Acetaminophen (Tylenol -) 650 mg PO Q6H PRN PRN Reason: PAIN LEVEL 1-5 Last Admin: 08/06/18 23:19 Dose: 650 mg Aspirin (Asa -) 81 mg PO DAILY [facility] Last Admin: 08/09/18 11:30 Dose: 81 mg Collagenase (Santyl -) 1 applic TP DAILY [facility]; Protocol Last Admin: 08/09/18 11:32 Dose: 1 applic Furosemide (Lasix -) 20 mg PO DAILY [facility] Last Admin: 08/09/18 11:31 Dose: 20 mg Cefazolin Sodium 1 gm/ (Dextrose) 50 mls @ 100 mls/hr IVPB Q8H-IV [facility] Last Admin: 08/09/18 11:31 Dose: 100 mls/hr Losartan Potassium (Cozaar -) 100 mg PO DAILY [facility] Last Admin: 08/09/18 06:45 Dose: 100 mg Rosuvastatin Calcium (Crestor -) 10 mg PO HS [facility] Sotalol HCl (Betapace -) 40 mg PO Q12H [facility] Last Admin: 08/09/18 11:30 Dose: 40 mg Warfarin Sodium (Coumadin -) 3 mg PO DAILY@1800 [facility] Last Admin: 08/08/18 17:07 Dose: 3 mg - Objective Vital Signs: Vital Signs Temperature 97.6 F 08/09/18 10:00 Pulse Rate 70 08/09/18 10:00 Respiratory Rate 20 08/09/18 10:00 Blood Pressure 134/47 L 08/09/18 10:00 O2 Sat by Pulse Oximetry (%) 97 08/08/18 20:52 Constitutional: Yes: No Distress Eyes: Yes: Conjunctiva Clear Cardiovascular: Yes: Regular Rate and Rhythm, S1, S2 Respiratory: Yes: CTA Bilaterally Gastrointestinal: Yes: Normal Bowel Sounds, Soft. No: Tenderness Extremities: Yes: Other (decreased erythema LE bilaterally +posterior L LE ulcer no drainage) Labs: CBC, BMP 08/09/18 05:30 08/09/18 05:30 INR, PTT INR 2.43 (0.83-1.09) H 08/09/18 05:30 Assessment/Plan Cellulitis LE bilaterally Non healing L LE ulcer Leukocytosis Continue cefazolin/ elevation Local wound care
[2018-08-09] MEDS: WARFARIN NA 3 MG TABLET PO SCH (17:42)
[2018-08-09] MEDS: hydrALAZINE HCL 25 MG TABLET (FP) PO SCH ×2 (21:17→21:36)
[2018-08-09] MEDS: ROSUVASTATIN CA 10 MG TABLET (FP) PO SCH (21:18)
[2018-08-10] MEDS ORDERED: ceFAZolin SODIUM 1 GM VIAL ONE ×3 (02:21→16:48)
[2018-08-10] MEDS ORDERED: DEXTROSE 5%-WATER - 50 ML IVPB ONE ×3 (02:22→16:49)
[2018-08-10] MEDS: CEFAZOLIN 1 GM in DEXTROSE 5%-WATER - 50 ML IVPB SCH ×3 (02:37→17:44)
[2018-08-10 07:42] LABS: MCH 28.8 pg (25.7-33.7); MCHC 32.6 g/dl (32.0-36.0); MEAN CELL VOLUME 88.2 fl (80-96); MEAN PLT VOLUME 8.3 fl (7.5-11.1); PLATELET COUNT 261 K/MM3 (134-434); RBC 4.54 M/mm3 (3.60-5.2); RDW 12.8 % (11.6-15.6); WHITE BLOOD COUNT 11.9 K/mm3 (4.0-10.0)
[2018-08-10 08:00] LABS: INR 2.78 (0.83-1.09); PROTHROMBIN TIME (PATIENT) 33.2 SEC (9.7-13.0)
[2018-08-10 08:32] LABS: ANION GAP 7 MMOL/L (8-16); BLOOD UREA NITROGEN 29 mg/dL (7-18); CALCIUM 8.5 mg/dL (8.5-10.1); CHLORIDE 107 mmol/L (98-107); CO2 28 mmol/L (21-32); CREATININE 0.9 mg/dL (0.55-1.3); GLUCOSE,RANDOM 99 mg/dL (74-106); POTASSIUM 4.8 mmol/L (3.5-5.1); SODIUM 141 mmol/L (136-145)
[2018-08-10] MEDS: SOTALOL HCL 80 MG TABLET (FP) PO SCH ×2 (08:48→21:02)
[2018-08-10] MEDS: ASPIRIN 81 MG CHEWABLE TABLETS PO SCH (09:54)
[2018-08-10] MEDS: hydrALAZINE HCL 25 MG TABLET (FP) PO SCH ×2 (09:54→21:49)
[2018-08-10] MEDS: LOSARTAN POTASSIUM 50 MG TABLET (FP) PO SCH (09:54)
[2018-08-10] MEDS: FUROSEMIDE 20 MG TABLET (FP) PO SCH (09:54)
--- NOTE | 2018-08-10 10:39 | CONSULT ---
Consult Consult Specialty:: Efren Neumann DPM Podiatry Reason for Consultation:: Patient reports pain from hypertrophic toenails. - History of Present Illness Chief Complaint: shortness of breath - Past Medical History [employer] WORK[employer]: Yes: CVA Cardio/Vascular: Yes: AFIB, CHF, Deep Vein Thrombosis, HTN, Hyperlipdemia Renal/: Yes: Renal Calculi (and sepsis) - Past Surgical History Past Surgical History: Yes: Hysterectomy (and abdominal hernia) - Alcohol/Substance Use Hx Alcohol Use: No - Smoking History Smoking history: Former smoker Have you smoked in the past 12 months: No If you are a former smoker, when did you quit?: 40yrs Home Medications - Allergies Allergies/Adverse Reactions: Allergies Allergy/AdvReac Type Severity Reaction Status Date / Time No Known Allergies Allergy Verified 08/05/18 11:12 - Home Medications Home Medications: Ambulatory Orders Aspirin [ASA -] 81 mg PO DAILY #0 tab.chew 09/22/17 Rosuvastatin Calcium [Crestor] 10 mg PO DAILY 01/14/18 Warfarin Na [Coumadin -] 2 mg PO DAILY@1800 01/14/18 Furosemide [Lasix -] 20 mg PO DAILY #30 tablet 01/19/18 Sotalol HCl [Betapace -] 40 mg PO BID #30 tablet 01/19/18 Physical Exam Vital Signs: Vital Signs Temperature 98 F 08/10/18 09:00 Pulse Rate 78 08/10/18 09:00 Respiratory Rate 18 08/10/18 09:00 Blood Pressure 138/58 L 08/10/18 09:00 O2 Sat by Pulse Oximetry (%) 96 08/09/18 20:49 Peripheral Pulses WNL: No (pedal pulses poorly palpable) Integumentary: Yes: Other (Toenails are hypertrophic and pinch skin on adjacent toes. No foot ulcerations are noted.) Labs: CBC, BMP 08/10/18 06:15 08/10/18 06:15 Assessment/Plan Assessment Abnormal peripheral arterial perfusion. No foot ulcerations Toenails pinch skin of adjacent toes but have not as yet caused any foot wound. Plan All 10 toenails were atraumatically trimmed. Patient will follow up in my office when necessary. Thanks for the consultation, Efren Neumann DPM
--- NOTE | 2018-08-10 11:54 | PN ---
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 (short form) - Note 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: cardiology, covering for dr. wood 83 year old female admitted with SOB and wheezing and accelerated hypertension found to be acute LV failure. H/o of CVA, paroxysmal atrial fib. hypercholesterolemia. no cp sob palps dizzy Current Medications Generic Name Dose Route Start Last Admin Trade Name Freq PRN Reason Stop Dose Admin Acetaminophen 650 mg 08/06/18 04:03 08/06/18 23:19 Tylenol - PO 650 mg Q6H PRN Administration PAIN LEVEL 1-5 Aspirin 81 mg 08/06/18 10:00 08/10/18 09:54 Asa - PO 81 mg DAILY [facility] Administration Collagenase 1 applic 08/06/18 12:00 08/09/18 11:32 Santyl - TP 1 applic DAILY [facility] Administration Protocol Furosemide 20 mg 08/06/18 10:00 08/10/18 09:54 Lasix - PO 20 mg DAILY [facility] Administration Hydralazine HCl 25 mg 08/09/18 22:00 08/10/18 09:54 Apresoline - PO 25 mg BID [facility] Administration Cefazolin Sodium 1 gm/ 50 mls @ 100 mls/hr 08/08/18 18:00 08/10/18 09:54 Dextrose IVPB 100 mls/hr Q8H-IV [facility] Administration Losartan Potassium 100 mg 08/09/18 06:15 08/10/18 09:54 Cozaar - PO 100 mg DAILY [facility] Administration Rosuvastatin Calcium 10 mg 08/09/18 22:00 08/09/18 21:18 Crestor - PO 10 mg HS [facility] Administration Sotalol HCl 40 mg 08/05/18 20:00 08/10/18 08:48 Betapace - PO 40 mg Q12H [facility] Administration Warfarin Sodium 3 mg 08/05/18 19:30 08/09/18 17:42 Coumadin - PO 3 mg DAILY@1800 [facility] Administration Warfarin Sodium 2 mg 08/10/18 18:00 Coumadin - PO 08/10/18 18:01 ONCE@1800 ONE Vital Signs Period Temp Pulse Resp BP Sys/Espinoza Pulse Ox Last 24 Hr 97.4 F-98.1 F 64-78 18-20 135-194/58-90 95-96 nad no jvd rrr s1s2 no mrg cta bl nl eff no le e/c/c abd nt nd pos bs no jaudice diaphoresis Laboratory Last Values WBC 11.9 K/mm3 (4.0-10.0) H 08/10/18 06:15 RBC 4.54 M/mm3 (3.60-5.2) 08/10/18 06:15 Hgb 13.0 GM/dL (10.7-15.3) 08/10/18 06:15 Hct 40.0 % (32.4-45.2) 08/10/18 06:15 MCV 88.2 fl (80-96) 08/10/18 06:15 MCH 28.8 pg (25.7-33.7) 08/10/18 06:15 MCHC 32.6 g/dl (32.0-36.0) 08/10/18 06:15 RDW 12.8 % (11.6-15.6) 08/10/18 06:15 Plt Count 261 K/MM3 (134-434) 08/10/18 06:15 MPV 8.3 fl (7.5-11.1) 08/10/18 06:15 Absolute Neuts (auto) 8.1 K/mm3 (1.5-8.0) H 08/09/18 05:30 Neutrophils % 66.6 % (42.8-82.8) 08/09/18 05:30 Lymphocytes % 10.6 % (8-40) D 08/09/18 05:30 Monocytes % 17.3 % (3.8-10.2) H 08/09/18 05:30 Eosinophils % 4.6 % (0-4.5) H D 08/09/18 05:30 Basophils % 0.9 % (0-2.0) 08/09/18 05:30 Nucleated RBC % 0 % (0-0) 08/09/18 05:30 ESR 33 mm/hr (0-30) H 08/09/18 05:30 PT with INR 33.20 SEC (9.7-13.0) H 08/10/18 06:15 INR 2.78 (0.83-1.09) H 08/10/18 06:15 Sodium 141 mmol/L (136-145) 08/10/18 06:15 Potassium 4.8 mmol/L (3.5-5.1) 11/10/18 06:15 Chloride 107 mmol/L (98-107) 08/10/18 06:15 Carbon Dioxide 28 mmol/L (21-32) 08/10/18 06:15 Anion Gap 7 MMOL/L (8-16) L 08/10/18 06:15 BUN 29 mg/dL (7-18) H 08/10/18 06:15 Creatinine 0.9 mg/dL (0.55-1.3) 08/10/18 06:15 Creat Clearance w eGFR 59.51 (>60) 08/10/18 06:15 Random Glucose 99 mg/dL (74-106) 08/10/18 06:15 Calcium 8.5 mg/dL (8.5-10.1) 08/10/18 06:15 Magnesium 2.4 mg/dL (1.8-2.4) 08/07/18 05:30 Total Bilirubin 0.4 mg/dL (0.2-1) 08/09/18 05:30 AST 19 U/L (15-37) 08/09/18 05:30 ALT 19 U/L (13-61) 08/09/18 05:30 Alkaline Phosphatase 98 U/L (45-117) 08/09/18 05:30 B-Natriuretic Peptide 5661.6 pg/ml (5-450) H 08/05/18 14:15 Total Protein 5.9 g/dl (6.4-8.2) L 08/09/18 05:30 Albumin 2.9 g/dl (3.4-5.0) L 08/09/18 05:30 tele: sr Arterial Lower extremity Doppler 08/07/18: moderate atherosclerotic disease with abnormal flow bilaterally suggesting inflow pathology. IMPRESSION: 1. Acute LV failure, compensated. 2. Hypercholesterolemia 3. S/p CVA. 4. Left lower extremity ulcerations. 5. Paroxysmal atrial fibrillation, currently in sinus rhythm. RECOMMENDATIONS: 1. Continue current lasix. Vol stable. 2. Cont statin. 3. Cont ac for afib, cont sotalol, in sr now 4. BP labile but has been better, continue same meds. Increase hydralazine if persistent elevations.
[2018-08-10] MEDS: COLLAGENASE CLOSTRIDIUM HIST. 30 GRAMS TUBE TP SCH (12:41)
--- NOTE | 2018-08-10 15:06 | PN ---
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 Illness: Pt w/o SOB, Palpitations, dizziness, CP, abd pain. - Current Medication List Current Medications: Active Medications Acetaminophen (Tylenol -) 650 mg PO Q6H PRN PRN Reason: PAIN LEVEL 1-5 Last Admin: 08/06/18 23:19 Dose: 650 mg Aspirin (Asa -) 81 mg PO DAILY [facility] Last Admin: 08/10/18 09:54 Dose: 81 mg Collagenase (Santyl -) 1 applic TP DAILY [facility]; Protocol Last Admin: 08/10/18 12:41 Dose: 1 applic Furosemide (Lasix -) 20 mg PO DAILY [facility] Last Admin: 08/10/18 09:54 Dose: 20 mg Hydralazine HCl (Apresoline -) 25 mg PO BID [facility] Last Admin: 08/10/18 09:54 Dose: 25 mg Cefazolin Sodium 1 gm/ (Dextrose) 50 mls @ 100 mls/hr IVPB Q8H-IV [facility] Last Admin: 08/10/18 09:54 Dose: 100 mls/hr Losartan Potassium (Cozaar -) 100 mg PO DAILY [facility] Last Admin: 08/10/18 09:54 Dose: 100 mg Rosuvastatin Calcium (Crestor -) 10 mg PO HS [facility] Last Admin: 08/09/18 21:18 Dose: 10 mg Sotalol HCl (Betapace -) 40 mg PO Q12H [facility] Last Admin: 08/10/18 08:48 Dose: 40 mg Warfarin Sodium (Coumadin -) 3 mg PO DAILY@1800 [facility] Last Admin: 08/09/18 17:42 Dose: 3 mg Warfarin Sodium (Coumadin -) 2 mg PO ONCE@1800 ONE Stop: 08/10/18 18:01 - Objective Vital Signs: Vital Signs Temperature 98.2 F 08/10/18 14:50 Pulse Rate 72 08/10/18 14:50 Respiratory Rate 20 08/10/18 14:50 Blood Pressure 153/54 L 08/10/18 14:50 O2 Sat by Pulse Oximetry (%) 96 08/09/18 20:49 Constitutional: Yes: No Distress, Calm Cardiovascular: Yes: Regular Rate and Rhythm, S1, S2 Respiratory: Yes: Regular, CTA Bilaterally. No: Rales Gastrointestinal: Yes: Normal Bowel Sounds, Soft, Tenderness Edema: LLE: Trace, RLE: Trace Neurological: Yes: Alert, Oriented Labs: CBC, BMP 08/10/18 06:15 08/10/18 06:15 INR, PTT INR 2.78 (0.83-1.09) H 08/10/18 06:15 Problem List - Problems (1) Acute exacerbation of CHF (congestive heart failure) Code(s): I50.9 - HEART FAILURE, UNSPECIFIED (2) HTN (hypertension) Code(s): I10 - ESSENTIAL (PRIMARY) HYPERTENSION (3) Paroxysmal A-fib Code(s): I48.0 - PAROXYSMAL ATRIAL FIBRILLATION (4) Leg ulcer Code(s): L97.909 - NON-PRS CHRONIC ULC UNSP PRT OF UNSP LOW LEG W UNSP SEVERITY (5) Hypercholesterolemia Code(s): E78.00 - PURE HYPERCHOLESTEROLEMIA, UNSPECIFIED (6) CVA (cerebral vascular accident) Code(s): I63.9 - CEREBRAL INFARCTION, UNSPECIFIED Qualifiers: CVA mechanism: unspecified Qualified Code(s): I63.9 - Cerebral infarction, unspecified Assessment/Plan Pt's blood pressure is labile, started on Hydralazine last night; to monitor BP Cont Sotalol, Losartan, Lasix Cardiology, ID, Surgery, Podiatry consults and f/u are appreciated Coumadin was adjusted for tonight AM labs
[2018-08-10] MEDS ORDERED: WARFARIN NA 2 MG TABLET (UD) PO ONE (18:00)
--- NOTE | 2018-08-10 18:49 | PN ---
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 Illness: C/O pain at site of L LE ulcer No c/o fever/ chills Afebrile WBC improved - Current Medication List Current Medications: Active Medications Acetaminophen (Tylenol -) 650 mg PO Q6H PRN PRN Reason: PAIN LEVEL 1-5 Last Admin: 08/06/18 23:19 Dose: 650 mg Aspirin (Asa -) 81 mg PO DAILY [facility] Last Admin: 08/10/18 09:54 Dose: 81 mg Collagenase (Santyl -) 1 applic TP DAILY [facility]; Protocol Last Admin: 08/10/18 12:41 Dose: 1 applic Furosemide (Lasix -) 20 mg PO DAILY [facility] Last Admin: 08/10/18 09:54 Dose: 20 mg Hydralazine HCl (Apresoline -) 25 mg PO BID [facility] Last Admin: 08/10/18 09:54 Dose: 25 mg Cefazolin Sodium 1 gm/ (Dextrose) 50 mls @ 100 mls/hr IVPB Q8H-IV [facility] Last Admin: 08/10/18 17:44 Dose: 100 mls/hr Losartan Potassium (Cozaar -) 100 mg PO DAILY [facility] Last Admin: 08/10/18 09:54 Dose: 100 mg Rosuvastatin Calcium (Crestor -) 10 mg PO HS [facility] Last Admin: 08/09/18 21:18 Dose: 10 mg Sotalol HCl (Betapace -) 40 mg PO Q12H [facility] Last Admin: 08/10/18 08:48 Dose: 40 mg Warfarin Sodium (Coumadin -) 3 mg PO DAILY@1800 [facility] Last Admin: 08/09/18 17:42 Dose: 3 mg - Objective Vital Signs: Vital Signs Temperature 98.2 F 08/10/18 14:50 Pulse Rate 72 08/10/18 14:50 Respiratory Rate 20 08/10/18 14:50 Blood Pressure 153/54 L 08/10/18 14:50 O2 Sat by Pulse Oximetry (%) 96 08/10/18 09:00 Constitutional: Yes: No Distress Eyes: Yes: Conjunctiva Clear Cardiovascular: Yes: Regular Rate and Rhythm, S1, S2 Respiratory: Yes: CTA Bilaterally Gastrointestinal: Yes: Normal Bowel Sounds, Soft Extremities: Yes: Other (decreased erythema LE bilaterally. + erythema surrounding L posterior leg ulcer) Labs: CBC, BMP 08/10/18 06:15 08/10/18 06:15 INR, PTT INR 2.78 (0.83-1.09) H 08/10/18 06:15 Assessment/Plan Cellulitis LE bilaterally improved Non healing L LE ulcer Leukocytosis Continue cefazolin/ elevation Local wound care
[2018-08-10] MEDS: ROSUVASTATIN CA 10 MG TABLET (FP) PO SCH (21:49)
[2018-08-10] MEDS: ACETAMINOPHEN 325 MG TABLET (FP) PO PRN (21:49)
[2018-08-11] MEDS ORDERED: ceFAZolin SODIUM 1 GM VIAL ONE ×3 (02:18→16:55)
[2018-08-11] MEDS ORDERED: DEXTROSE 5%-WATER - 50 ML IVPB ONE ×3 (02:18→16:55)
[2018-08-11] MEDS: CEFAZOLIN 1 GM in DEXTROSE 5%-WATER - 50 ML IVPB SCH ×3 (02:27→17:38)
[2018-08-11 06:49] LABS: HEMATOCRIT 44.3 % (32.4-45.2); HEMOGLOBIN 14.4 GM/dL (10.7-15.3); MCHC 32.5 g/dl (32.0-36.0); MEAN CELL VOLUME 89.3 fl (80-96); MEAN PLT VOLUME 8.4 fl (7.5-11.1); PLATELET COUNT 299 K/MM3 (134-434); RBC 4.96 M/mm3 (3.60-5.2); RDW 12.9 % (11.6-15.6); WHITE BLOOD COUNT 14.3 K/mm3 (4.0-10.0)
[2018-08-11 07:06] LABS: INR 2.85 (0.83-1.09)
[2018-08-11 07:27] LABS: ANION GAP 8 MMOL/L (8-16); BLOOD UREA NITROGEN 34 mg/dL (7-18); CALCIUM 8.6 mg/dL (8.5-10.1); CHLORIDE 105 mmol/L (98-107); CO2 28 mmol/L (21-32); GLUCOSE,RANDOM 109 mg/dL (74-106); POTASSIUM 4.9 mmol/L (3.5-5.1); SODIUM 141 mmol/L (136-145)
[2018-08-11] MEDS: SOTALOL HCL 80 MG TABLET (FP) PO SCH ×2 (08:18→21:09)
[2018-08-11] MEDS: ASPIRIN 81 MG CHEWABLE TABLETS PO SCH (09:45)
[2018-08-11] MEDS: FUROSEMIDE 20 MG TABLET (FP) PO SCH (09:45)
[2018-08-11] MEDS: LOSARTAN POTASSIUM 50 MG TABLET (FP) PO SCH (09:45)
[2018-08-11] MEDS: hydrALAZINE HCL 50 MG TABLET (FP) PO SCH ×2 (09:45→21:35)
--- NOTE | 2018-08-11 11:01 | PN ---
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 Illness: Pt w/o fever, SOB, palpitations, CP, abd pain. - Current Medication List Current Medications: Active Medications Acetaminophen (Tylenol -) 650 mg PO Q6H PRN PRN Reason: PAIN LEVEL 1-5 Last Admin: 08/10/18 21:49 Dose: 650 mg Aspirin (Asa -) 81 mg PO DAILY [facility] Last Admin: 08/11/18 09:45 Dose: 81 mg Collagenase (Santyl -) 1 applic TP DAILY [facility]; Protocol Last Admin: 08/10/18 12:41 Dose: 1 applic Furosemide (Lasix -) 20 mg PO DAILY [facility] Last Admin: 08/11/18 09:45 Dose: 20 mg Hydralazine HCl (Apresoline -) 50 mg PO BID [facility] Last Admin: 08/11/18 09:45 Dose: 50 mg Cefazolin Sodium 1 gm/ (Dextrose) 50 mls @ 100 mls/hr IVPB Q8H-IV [facility] Last Admin: 08/11/18 09:45 Dose: 100 mls/hr Losartan Potassium (Cozaar -) 100 mg PO DAILY [facility] Last Admin: 08/11/18 09:45 Dose: 100 mg Rosuvastatin Calcium (Crestor -) 10 mg PO HS [facility] Last Admin: 08/10/18 21:49 Dose: 10 mg Sotalol HCl (Betapace -) 40 mg PO Q12H [facility] Last Admin: 08/11/18 08:18 Dose: 40 mg Warfarin Sodium (Coumadin -) 3 mg PO DAILY@1800 [facility] Last Admin: 08/09/18 17:42 Dose: 3 mg Warfarin Sodium (Coumadin -) 1 mg PO ONCE@1800 [facility] Stop: 08/11/18 18:01 - Objective Vital Signs: Vital Signs Temperature 98.5 F 08/11/18 08:15 Pulse Rate 68 08/11/18 08:15 Respiratory Rate 18 08/11/18 08:15 Blood Pressure 178/74 H 08/11/18 08:15 O2 Sat by Pulse Oximetry (%) 96 08/10/18 21:00 Constitutional: Yes: No Distress, Calm Cardiovascular: Yes: Regular Rate and Rhythm, S1, S2 Respiratory: Yes: Regular, CTA Bilaterally. No: Rales Gastrointestinal: Yes: Normal Bowel Sounds, Soft. No: Tenderness Edema: No Neurological: Yes: Alert, Oriented Labs: CBC, BMP 08/11/18 05:20 08/11/18 05:20 INR, PTT INR 2.85 (0.83-1.09) H 08/11/18 05:20 Problem List - Problems (1) Acute exacerbation of CHF (congestive heart failure) Code(s): I50.9 - HEART FAILURE, UNSPECIFIED (2) HTN (hypertension) Code(s): I10 - ESSENTIAL (PRIMARY) HYPERTENSION (3) Paroxysmal A-fib Code(s): I48.0 - PAROXYSMAL ATRIAL FIBRILLATION (4) Leg ulcer Code(s): L97.909 - NON-PRS CHRONIC ULC UNSP PRT OF UNSP LOW LEG W UNSP SEVERITY (5) Hypercholesterolemia Code(s): E78.00 - PURE HYPERCHOLESTEROLEMIA, UNSPECIFIED (6) CVA (cerebral vascular accident) Code(s): I63.9 - CEREBRAL INFARCTION, UNSPECIFIED Qualifiers: CVA mechanism: unspecified Qualified Code(s): I63.9 - Cerebral infarction, unspecified (7) Cellulitis Assessment/Plan: of LEs Code(s): L03.90 - CELLULITIS, UNSPECIFIED Qualifiers: Site of cellulitis: extremity Site of cellulitis of extremity: lower extremity Laterality: unspecified laterality Qualified Code(s): L03.119 - Cellulitis of unspecified part of limb (8) Leg ulcer, left Code(s): L97.929 - NON-PRS CHRONIC ULC UNSP PRT OF L LOW LEG W UNSP SEVERITY Assessment/Plan Pt's blood pressure is better; pt was started on Hydralazine, dose was increased ; to continue to monitor BP Cont Sotalol, Losartan, Lasix, Hydralazine Cardiology, ID, Surgery, Podiatry consults and f/u are appreciated Coumadin was adjusted for tonight AM labs
--- NOTE | 2018-08-11 12:27 | PN ---
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 (short form) - Note 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: cardiology, covering for dr. wood 83 year old female admitted with SOB and wheezing and accelerated hypertension found to be acute LV failure. H/o of CVA, paroxysmal atrial fib. hypercholesterolemia. no cp sob palps dizzy Current Medications Generic Name Dose Route Start Last Admin Trade Name Freq PRN Reason Stop Dose Admin Acetaminophen 650 mg 08/06/18 04:03 08/10/18 21:49 Tylenol - PO 650 mg Q6H PRN Administration PAIN LEVEL 1-5 Aspirin 81 mg 08/06/18 10:00 08/11/18 09:45 Asa - PO 81 mg DAILY [facility] Administration Collagenase 1 applic 08/06/18 12:00 08/10/18 12:41 Santyl - TP 1 applic DAILY [facility] Administration Protocol Furosemide 20 mg 08/06/18 10:00 08/11/18 09:45 Lasix - PO 20 mg DAILY [facility] Administration Hydralazine HCl 50 mg 08/11/18 10:00 08/11/18 09:45 Apresoline - PO 50 mg BID [facility] Administration Cefazolin Sodium 1 gm/ 50 mls @ 100 mls/hr 08/08/18 18:00 08/11/18 09:45 Dextrose IVPB 100 mls/hr Q8H-IV [facility] Administration Losartan Potassium 100 mg 08/09/18 06:15 08/11/18 09:45 Cozaar - PO 100 mg DAILY [facility] Administration Rosuvastatin Calcium 10 mg 08/09/18 22:00 08/10/18 21:49 Crestor - PO 10 mg HS [facility] Administration Sotalol HCl 40 mg 08/05/18 20:00 08/11/18 08:18 Betapace - PO 40 mg Q12H [facility] Administration Warfarin Sodium 3 mg 08/05/18 19:30 08/09/18 17:42 Coumadin - PO 3 mg DAILY@1800 [facility] Administration Warfarin Sodium 1 mg 08/11/18 18:00 Coumadin - PO 08/11/18 18:01 ONCE@1800 ONE Vital Signs Period Temp Pulse Resp BP Sys/Espinoza Pulse Ox Last 24 Hr 98.0 F-98.6 F 66-72 18-20 132-209/52-76 96 nad no jvd rrr s1s2 no mrg cta bl nl eff no le e/c/c abd nt nd pos bs no jaudice diaphoresis CBC, BMP 11/11/18 05:20 08/11/18 05:20 tele: sr, occ pvcs Arterial Lower extremity Doppler 08/07/18: moderate atherosclerotic disease with abnormal flow bilaterally suggesting inflow pathology. IMPRESSION: 1. Acute LV failure, compensated. 2. Hypercholesterolemia 3. S/p CVA. 4. Left lower extremity ulcerations. 5. Paroxysmal atrial fibrillation, currently in sinus rhythm. RECOMMENDATIONS: 1. Continue current lasix. Vol stable. 2. Cont statin. 3. Cont ac for afib, cont sotalol, in sr now 4. BP labile but high at times still, will increase hydralazine today. cont other htn meds.
[2018-08-11] MEDS: COLLAGENASE CLOSTRIDIUM HIST. 30 GRAMS TUBE TP SCH (13:43)
[2018-08-11] MEDS ORDERED: WARFARIN NA 1 MG TABLET (FP) PO ONE (18:00)
[2018-08-11] MEDS: ROSUVASTATIN CA 10 MG TABLET (FP) PO SCH (21:35)
[2018-08-11] MEDS: ACETAMINOPHEN 325 MG TABLET (FP) PO PRN (21:35)
[2018-08-12] MEDS ORDERED: ceFAZolin SODIUM 1 GM VIAL ONE ×3 (02:41→17:00)
[2018-08-12] MEDS ORDERED: DEXTROSE 5%-WATER - 50 ML IVPB ONE ×3 (02:42→17:01)
[2018-08-12] MEDS: CEFAZOLIN 1 GM in DEXTROSE 5%-WATER - 50 ML IVPB SCH ×3 (03:00→17:04)
[2018-08-12 07:45] LABS: HEMATOCRIT 38.4 % (32.4-45.2); HEMOGLOBIN 12.4 GM/dL (10.7-15.3); MCH 28.7 pg (25.7-33.7); MCHC 32.3 g/dl (32.0-36.0); MEAN CELL VOLUME 88.8 fl (80-96); MEAN PLT VOLUME 8.2 fl (7.5-11.1); PLATELET COUNT 257 K/MM3 (134-434); RBC 4.33 M/mm3 (3.60-5.2); RDW 13.1 % (11.6-15.6); WHITE BLOOD COUNT 16.4 K/mm3 (4.0-10.0)
[2018-08-12 07:52] LABS: INR 3.13 (0.83-1.09); PROTHROMBIN TIME (PATIENT) 37.4 SEC (9.7-13.0)
[2018-08-12 07:57] LABS: ANION GAP 8 MMOL/L (8-16); BLOOD UREA NITROGEN 33 mg/dL (7-18); CALCIUM 8.1 mg/dL (8.5-10.1); CHLORIDE 109 mmol/L (98-107); CO2 25 mmol/L (21-32); CREATININE 0.8 mg/dL (0.55-1.3); GLUCOSE,RANDOM 102 mg/dL (74-106); POTASSIUM 4.8 mmol/L (3.5-5.1); SODIUM 142 mmol/L (136-145)
[2018-08-12] MEDS: FUROSEMIDE 20 MG TABLET (FP) PO SCH (09:22)
[2018-08-12] MEDS: SOTALOL HCL 80 MG TABLET (FP) PO SCH ×2 (09:22→20:00)
[2018-08-12] MEDS: hydrALAZINE HCL 50 MG TABLET (FP) PO SCH ×2 (09:22→21:31)
[2018-08-12] MEDS: ASPIRIN 81 MG CHEWABLE TABLETS PO SCH (09:22)
[2018-08-12] MEDS: LOSARTAN POTASSIUM 50 MG TABLET (FP) PO SCH (09:23)
[2018-08-12] MEDS: COLLAGENASE CLOSTRIDIUM HIST. 30 GRAMS TUBE TP SCH (09:24)
[2018-08-12 09:54] LABS: ALK PHOS 94 U/L (45-117); BILIRUBIN,TOTAL 0.3 mg/dL (0.2-1); SGOT/AST 19 U/L (15-37); SGPT/ALT 17 U/L (13-61); TOT PROT 5.8 g/dl (6.4-8.2)
--- NOTE | 2018-08-12 14:37 | PN ---
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 Illness: Awake, alert Supine in bed Reports less pain at site of L LE ulcer No c/o fever/ chills Afebrile WBC 16K Wound c/s mixed, including MRSA - Current Medication List Current Medications: Active Medications Acetaminophen (Tylenol -) 650 mg PO Q6H PRN PRN Reason: PAIN LEVEL 1-5 Last Admin: 08/11/18 21:35 Dose: 650 mg Aspirin (Asa -) 81 mg PO DAILY [facility] Last Admin: 08/12/18 09:22 Dose: 81 mg Collagenase (Santyl -) 1 applic TP DAILY [facility]; Protocol Last Admin: 08/12/18 09:24 Dose: 1 applic Furosemide (Lasix -) 20 mg PO DAILY [facility] Last Admin: 08/12/18 09:22 Dose: 20 mg Hydralazine HCl (Apresoline -) 50 mg PO BID [facility] Last Admin: 08/12/18 09:22 Dose: 50 mg Cefazolin Sodium 1 gm/ (Dextrose) 50 mls @ 100 mls/hr IVPB Q8H-IV [facility] Last Admin: 08/12/18 09:22 Dose: 100 mls/hr Losartan Potassium (Cozaar -) 100 mg PO DAILY [facility] Last Admin: 08/12/18 09:23 Dose: 100 mg Rosuvastatin Calcium (Crestor -) 10 mg PO HS [facility] Last Admin: 08/11/18 21:35 Dose: 10 mg Sotalol HCl (Betapace -) 40 mg PO Q12H [facility] Last Admin: 08/12/18 09:22 Dose: 40 mg Warfarin Sodium (Coumadin -) 3 mg PO DAILY@1800 [facility] Last Admin: 08/09/18 17:42 Dose: 3 mg - Objective Vital Signs: Vital Signs Temperature 97.6 F 08/12/18 10:00 Pulse Rate 68 08/12/18 10:00 Respiratory Rate 20 08/12/18 10:00 Blood Pressure 150/65 08/12/18 10:00 O2 Sat by Pulse Oximetry (%) 96 08/12/18 09:00 Eyes: Yes: Conjunctiva Clear Cardiovascular: Yes: S1, S2 Respiratory: Yes: CTA Bilaterally Gastrointestinal: Yes: Normal Bowel Sounds, Soft. No: Tenderness Extremities: Yes: Other (decreased erythema LE bilaterally; 2x2cm ulceration distal calf. decreased erythema. No drainage) Labs: CBC, BMP 08/12/18 06:55 08/12/18 06:55 INR, PTT INR 3.13 (0.83-1.09) H 08/12/18 06:55 Assessment/Plan Cellulitis LE bilaterally improved Non healing L LE ulcer Leukocytosis + wound c/s polymicrobial, including MRSA Substitute po bactrim next 24hr Contact precautions Local wound care
--- NOTE | 2018-08-12 19:59 | PN ---
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 (short form) - Note 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: 83 year old female admitted with SOB and wheezing and accelerated hypertension found to be acute LV failure. H/o of CVA, paroxysmal atrial fib. hypercholesterolemia. Started on hydralazine 25mg BID, no SOB or chest pain, periods of systolic hypertension. Wound c/s reveals multiple organisms including MRSA. Active Medications Acetaminophen (Tylenol -) 650 mg PO Q6H PRN PRN Reason: PAIN LEVEL 1-5 Last Admin: 08/11/18 21:35 Dose: 650 mg Aspirin (Asa -) 81 mg PO DAILY [facility] Last Admin: 08/12/18 09:22 Dose: 81 mg Collagenase (Santyl -) 1 applic TP DAILY [facility]; Protocol Last Admin: 08/12/18 09:24 Dose: 1 applic Furosemide (Lasix -) 20 mg PO DAILY [facility] Last Admin: 08/12/18 09:22 Dose: 20 mg Hydralazine HCl (Apresoline -) 50 mg PO BID [facility] Last Admin: 08/12/18 09:22 Dose: 50 mg Cefazolin Sodium 1 gm/ (Dextrose) 50 mls @ 100 mls/hr IVPB Q8H-IV [facility] Last Admin: 08/12/18 17:04 Dose: 100 mls/hr Losartan Potassium (Cozaar -) 100 mg PO DAILY [facility] Last Admin: 08/12/18 09:23 Dose: 100 mg Rosuvastatin Calcium (Crestor -) 10 mg PO HS [facility] Last Admin: 08/11/18 21:35 Dose: 10 mg Sotalol HCl (Betapace -) 40 mg PO Q12H [facility] Last Admin: 08/12/18 09:22 Dose: 40 mg Warfarin Sodium (Coumadin -) 3 mg PO DAILY@1800 [facility] Last Admin: 08/09/18 17:42 Dose: 3 mg 83 year old female in no distress, no pallor, cyanosis, clubbing or jaundice. Last Vital Signs Temp Pulse Resp BP Pulse Ox 97.9 F 72 20 145/58 L 96 08/12/18 15:57 08/12/18 15:57 08/12/18 15:57 08/12/18 15:57 08/12/18 09:00 NECK; Supple, no JVD, carotids 2+, no bruits or thyromegaly. HEART: PMI in the 5th ICS, no heaves or thrills. Grade I/ apical systolic murmur, no gallops. LUNGS: Clear on auscultation. ABDOMEN: Soft, nontender, no organomegaly. Incisional hernia. EXTREMITIES: Trace left ankle edema. ulcerations left calf, bandged, slight hyperemia of the right lower calf. CBC, BMP 08/12/18 06:55 08/12/18 06:55 IMPRESSION: 1. LV failure, compensated. 2. Hypercholesterolemia 3. S/p CVA. 4. Left lower extremity ulcerations. 5. Paroxysmal atrial fibrillation, currently in sinus rhythm. RECOMMENDATIONS: 1. Would care in progress 2. MRA with and without contrast ofthe renal arteries. 3. Outpatient follow up at the wound care center. 4. F/u of leukocytosis.
[2018-08-12] MEDS: ROSUVASTATIN CA 10 MG TABLET (FP) PO SCH (21:31)
[2018-08-12] MEDS: ACETAMINOPHEN 325 MG TABLET (FP) PO PRN (21:32)
--- NOTE | 2018-08-12 23:14 | PN ---
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 Illness: Pt w/o fever, chills, SOB, cough, palpitations, CP, abd pain. - Current Medication List Current Medications: Active Medications Acetaminophen (Tylenol -) 650 mg PO Q6H PRN PRN Reason: PAIN LEVEL 1-5 Last Admin: 08/12/18 21:32 Dose: 650 mg Aspirin (Asa -) 81 mg PO DAILY [facility] Last Admin: 08/12/18 09:22 Dose: 81 mg Collagenase (Santyl -) 1 applic TP DAILY [facility]; Protocol Last Admin: 08/12/18 09:24 Dose: 1 applic Furosemide (Lasix -) 20 mg PO DAILY [facility] Last Admin: 08/12/18 09:22 Dose: 20 mg Hydralazine HCl (Apresoline -) 50 mg PO BID [facility] Last Admin: 08/12/18 21:31 Dose: 50 mg Cefazolin Sodium 1 gm/ (Dextrose) 50 mls @ 100 mls/hr IVPB Q8H-IV [facility] Last Admin: 08/12/18 17:04 Dose: 100 mls/hr Losartan Potassium (Cozaar -) 100 mg PO DAILY [facility] Last Admin: 08/12/18 09:23 Dose: 100 mg Rosuvastatin Calcium (Crestor -) 10 mg PO HS [facility] Last Admin: 08/12/18 21:31 Dose: 10 mg Sotalol HCl (Betapace -) 40 mg PO Q12H [facility] Last Admin: 08/12/18 20:00 Dose: 40 mg Warfarin Sodium (Coumadin -) 3 mg PO DAILY@1800 [facility] Last Admin: 08/09/18 17:42 Dose: 3 mg - Objective Vital Signs: Vital Signs Temperature 98.3 F 08/12/18 19:50 Pulse Rate 73 08/12/18 19:50 Respiratory Rate 18 08/12/18 19:50 Blood Pressure 143/62 08/12/18 19:50 O2 Sat by Pulse Oximetry (%) 96 08/12/18 20:47 Constitutional: Yes: No Distress, Calm Cardiovascular: Yes: Regular Rate and Rhythm, S1, S2 Respiratory: Yes: Regular, CTA Bilaterally, Diminished Gastrointestinal: Yes: Normal Bowel Sounds, Soft. No: Tenderness Neurological: Yes: Alert, Oriented Labs: CBC, BMP 08/12/18 06:55 08/12/18 06:55 INR, PTT INR 3.13 (0.83-1.09) H 08/12/18 06:55 Problem List - Problems (1) Acute exacerbation of CHF (congestive heart failure) Code(s): I50.9 - HEART FAILURE, UNSPECIFIED (2) HTN (hypertension) Code(s): I10 - ESSENTIAL (PRIMARY) HYPERTENSION (3) Paroxysmal A-fib Code(s): I48.0 - PAROXYSMAL ATRIAL FIBRILLATION (4) Leg ulcer Code(s): L97.909 - NON-PRS CHRONIC ULC UNSP PRT OF UNSP LOW LEG W UNSP SEVERITY (5) Hypercholesterolemia Code(s): E78.00 - PURE HYPERCHOLESTEROLEMIA, UNSPECIFIED (6) CVA (cerebral vascular accident) Code(s): I63.9 - CEREBRAL INFARCTION, UNSPECIFIED Qualifiers: CVA mechanism: unspecified Qualified Code(s): I63.9 - Cerebral infarction, unspecified (7) Cellulitis Code(s): L03.90 - CELLULITIS, UNSPECIFIED Qualifiers: Site of cellulitis: extremity Site of cellulitis of extremity: lower extremity Laterality: unspecified laterality Qualified Code(s): L03.119 - Cellulitis of unspecified part of limb (8) Leg ulcer, left Code(s): L97.929 - NON-PRS CHRONIC ULC UNSP PRT OF L LOW LEG W UNSP SEVERITY (9) Labile essential hypertension Assessment/Plan: TO send pt to renal MRA, to R/o arthery stenosis Code(s): I10 - ESSENTIAL (PRIMARY) HYPERTENSION Assessment/Plan Pt's blood pressure is not brtter rhis AMbetter; pt was started on Hydralazine, dose was increased; to continue to monitor BP Cont Sotalol, Losartan, Lasix, Hydralazine Cardiology, ID, Surgery, Podiatry consults and f/u are appreciated was d/[facility]; to [facility] MRA to R/O renal artery stenosis Coumadin was adjusted for tonight AM labs
[2018-08-12 23:30] VITALS: BMI 22.6
[2018-08-13] MEDS ORDERED: ceFAZolin SODIUM 1 GM VIAL ONE ×3 (01:05→16:57)
[2018-08-13] MEDS ORDERED: DEXTROSE 5%-WATER - 50 ML IVPB ONE ×3 (01:06→16:58)
[2018-08-13] MEDS: CEFAZOLIN 1 GM in DEXTROSE 5%-WATER - 50 ML IVPB SCH ×3 (01:21→17:18)
[2018-08-13 06:45] LABS: INR 2.16 (0.83-1.09); PROTHROMBIN TIME (PATIENT) 25.7 SEC (9.7-13.0)
[2018-08-13 07:59] LABS: ALBUMIN 2.9 g/dl (3.4-5.0); ALK PHOS 90 U/L (45-117); ANION GAP 6 MMOL/L (8-16); BILIRUBIN,TOTAL 0.4 mg/dL (0.2-1); BLOOD UREA NITROGEN 38 mg/dL (7-18); CALCIUM 8.5 mg/dL (8.5-10.1); CHLORIDE 110 mmol/L (98-107); CO2 25 mmol/L (21-32); CREATININE 0.9 mg/dL (0.55-1.3); GLUCOSE,RANDOM 102 mg/dL (74-106); POTASSIUM 4.7 mmol/L (3.5-5.1); SGOT/AST 18 U/L (15-37); SGPT/ALT 15 U/L (13-61); SODIUM 141 mmol/L (136-145); TOT PROT 5.7 g/dl (6.4-8.2); URIC ACID 4.9 mg/dL (2.6-7.2)
[2018-08-13] MEDS: SOTALOL HCL 80 MG TABLET (FP) PO SCH ×2 (08:46→21:36)
[2018-08-13] MEDS: ASPIRIN 81 MG CHEWABLE TABLETS PO SCH (10:06)
[2018-08-13] MEDS: LOSARTAN POTASSIUM 50 MG TABLET (FP) PO SCH (10:06)
[2018-08-13] MEDS: hydrALAZINE HCL 50 MG TABLET (FP) PO SCH ×2 (10:06→22:23)
[2018-08-13] MEDS: COLLAGENASE CLOSTRIDIUM HIST. 30 GRAMS TUBE TP SCH (10:06)
[2018-08-13] MEDS: FUROSEMIDE 20 MG TABLET (FP) PO SCH (10:06)
--- NOTE | 2018-08-13 11:16 | PN ---
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 Illness: Pt w/o fever, chills, SOB, cough, palpitations, CP, abd pain, leg pain. - Current Medication List Current Medications: Active Medications Acetaminophen (Tylenol -) 650 mg PO Q6H PRN PRN Reason: PAIN LEVEL 1-5 Last Admin: 08/12/18 21:32 Dose: 650 mg Aspirin (Asa -) 81 mg PO DAILY [facility] Last Admin: 08/13/18 10:06 Dose: 81 mg Collagenase (Santyl -) 1 applic TP DAILY [facility]; Protocol Last Admin: 08/13/18 10:06 Dose: 1 applic Furosemide (Lasix -) 20 mg PO DAILY [facility] Last Admin: 08/13/18 10:06 Dose: 20 mg Hydralazine HCl (Apresoline -) 50 mg PO BID [facility] Last Admin: 08/13/18 10:06 Dose: 50 mg Cefazolin Sodium 1 gm/ (Dextrose) 50 mls @ 100 mls/hr IVPB Q8H-IV [facility] Last Admin: 08/13/18 10:06 Dose: 100 mls/hr Losartan Potassium (Cozaar -) 100 mg PO DAILY [facility] Last Admin: 08/13/18 10:06 Dose: 100 mg Rosuvastatin Calcium (Crestor -) 10 mg PO HS [facility] Last Admin: 08/12/18 21:31 Dose: 10 mg Sotalol HCl (Betapace -) 40 mg PO Q12H [facility] Last Admin: 08/13/18 08:46 Dose: 40 mg Warfarin Sodium (Coumadin -) 3 mg PO DAILY@1800 [facility] Last Admin: 08/09/18 17:42 Dose: 3 mg - Objective Vital Signs: Vital Signs Temperature 97.9 F 08/13/18 10:00 Pulse Rate 72 08/13/18 10:00 Respiratory Rate 20 08/13/18 10:00 Blood Pressure 183/73 H 08/13/18 10:00 O2 Sat by Pulse Oximetry (%) 97 08/13/18 09:00 Constitutional: Yes: No Distress, Calm Cardiovascular: Yes: Regular Rate and Rhythm, S1, S2 Respiratory: Yes: Regular, CTA Bilaterally. No: Rales Gastrointestinal: Yes: Normal Bowel Sounds, Soft. No: Tenderness Extremities: Yes: Other (clean left leg dressing) Neurological: Yes: Alert, Oriented Labs: CBC, BMP 08/12/18 06:55 08/13/18 05:30 INR, PTT INR 2.16 (0.83-1.09) H 08/13/18 05:30 Problem List - Problems (1) Acute exacerbation of CHF (congestive heart failure) Code(s): I50.9 - HEART FAILURE, UNSPECIFIED (2) HTN (hypertension) Code(s): I10 - ESSENTIAL (PRIMARY) HYPERTENSION (3) Paroxysmal A-fib Code(s): I48.0 - PAROXYSMAL ATRIAL FIBRILLATION (4) Leg ulcer Code(s): L97.909 - NON-PRS CHRONIC ULC UNSP PRT OF UNSP LOW LEG W UNSP SEVERITY (5) Hypercholesterolemia Code(s): E78.00 - PURE HYPERCHOLESTEROLEMIA, UNSPECIFIED (6) CVA (cerebral vascular accident) Code(s): I63.9 - CEREBRAL INFARCTION, UNSPECIFIED Qualifiers: CVA mechanism: unspecified Qualified Code(s): I63.9 - Cerebral infarction, unspecified (7) Cellulitis Code(s): L03.90 - CELLULITIS, UNSPECIFIED Qualifiers: Site of cellulitis: extremity Site of cellulitis of extremity: lower extremity Laterality: unspecified laterality Qualified Code(s): L03.119 - Cellulitis of unspecified part of limb (8) Leg ulcer, left Code(s): L97.929 - NON-PRS CHRONIC ULC UNSP PRT OF L LOW LEG W UNSP SEVERITY (9) Labile essential hypertension Code(s): I10 - ESSENTIAL (PRIMARY) HYPERTENSION Assessment/Plan Pt with labile BP; Renal artery MRA is pending Cont Sotalol, Losartan, Lasix, Hydralazine Cardiology, ID, Surgery, Podiatry consults and f/u are appreciated Coumadin dose was adjusted. AM labs
[2018-08-13] MEDS ORDERED: PT OWN MED DRAWER 7, Y5N ONE (15:42)
[2018-08-13] MEDS ORDERED: WARFARIN NA 2.5 MG TABLET (FP) PO SCH (18:00)
--- NOTE | 2018-08-13 19:24 | PN ---
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 (short form) - Note 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: Vascular surgery Will follow MRA of abdomen ordered by cardiology to rule out renal artery stenosis for uncontrolled htn. Cont local wound care. Ty Webster DO
--- NOTE | 2018-08-13 20:39 | PN ---
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 (short form) - Note 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: 83 year old female admitted with SOB and wheezing and accelerated hypertension found to be acute LV failure. H/o of CVA, paroxysmal atrial fib. hypercholesterolemia. Started on hydralazine 25mg BID and BP is better controlled, no SOB or chest pain, periods of systolic hypertension. Wound c/s reveals multiple organisms including MRSA. Active Medications Acetaminophen (Tylenol -) 650 mg PO Q6H PRN PRN Reason: PAIN LEVEL 1-5 Last Admin: 08/12/18 21:32 Dose: 650 mg Aspirin (Asa -) 81 mg PO DAILY [facility] Last Admin: 08/13/18 10:06 Dose: 81 mg Collagenase (Santyl -) 1 applic TP DAILY [facility]; Protocol Last Admin: 08/13/18 10:06 Dose: 1 applic Furosemide (Lasix -) 20 mg PO DAILY [facility] Last Admin: 08/13/18 10:06 Dose: 20 mg Hydralazine HCl (Apresoline -) 50 mg PO BID [facility] Last Admin: 08/13/18 10:06 Dose: 50 mg Cefazolin Sodium 1 gm/ (Dextrose) 50 mls @ 100 mls/hr IVPB Q8H-IV [facility] Last Admin: 08/13/18 17:18 Dose: 100 mls/hr Losartan Potassium (Cozaar -) 100 mg PO DAILY [facility] Last Admin: 08/13/18 10:06 Dose: 100 mg Rosuvastatin Calcium (Crestor -) 10 mg PO HS [facility] Last Admin: 08/12/18 21:31 Dose: 10 mg Sotalol HCl (Betapace -) 40 mg PO Q12H [facility] Last Admin: 08/13/18 08:46 Dose: 40 mg Warfarin Sodium (Coumadin -) 2.5 mg PO DAILY@1800 [facility] Last Admin: 08/13/18 17:18 Dose: 2.5 mg 83 year old female in no distress, no pallor, cyanosis, clubbing or jaundice. Last Vital Signs Temp Pulse Resp BP Pulse Ox 98.0 F 72 20 142/61 97 08/13/18 17:00 08/13/18 17:00 08/13/18 17:00 08/13/18 17:00 08/13/18 09:00 Intake & Output 08/10/18 08/11/18 08/12/18 08/13/18 23:59 23:59 23:59 23:59 Intake Total 340 1290 1220 1230 Balance 340 1290 1220 1230 Weight 116 lb 9.6 oz 116 lb 3.2 oz 116 lb NECK; Supple, no JVD, carotids 2+, no bruits or thyromegaly. HEART: PMI in the 5th ICS, no heaves or thrills. Grade I/ apical systolic murmur, no gallops. LUNGS: Clear on auscultation. ABDOMEN: Soft, nontender, no organomegaly. Incisional hernia. EXTREMITIES: Trace left ankle edema. ulcerations left calf, bandaged, slight hyperemia of the right lower calf. CBC, BMP 08/12/18 06:55 08/13/18 05:30 IMPRESSION: 1. LV failure,resolved 2. Hypercholesterolemia 3. S/p CVA. 4. Left lower extremity ulcerations. 5. Paroxysmal atrial fibrillation, currently in sinus rhythm. RECOMMENDATIONS: 1. Would care in progress. 2. MRA with and without contrast ofthe renal arteries. 3. Outpatient follow up at the wound care center. 4. F/u of leukocytosis.
[2018-08-13] MEDS: ACETAMINOPHEN 325 MG TABLET (FP) PO PRN (22:23)
[2018-08-13] MEDS: ROSUVASTATIN CA 10 MG TABLET (FP) PO SCH (22:23)
[2018-08-14] MEDS ORDERED: ceFAZolin SODIUM 1 GM VIAL ONE ×2 (01:29→08:21)
[2018-08-14] MEDS ORDERED: DEXTROSE 5%-WATER - 50 ML IVPB ONE ×2 (01:29→08:21)
[2018-08-14] MEDS: CEFAZOLIN 1 GM in DEXTROSE 5%-WATER - 50 ML IVPB SCH (02:00)
[2018-08-14 07:19] LABS: HEMATOCRIT 37.4 % (32.4-45.2); MCH 28.6 pg (25.7-33.7); MEAN CELL VOLUME 89.2 fl (80-96); MEAN PLT VOLUME 8.5 fl (7.5-11.1); PLATELET COUNT 264 K/MM3 (134-434); RBC 4.19 M/mm3 (3.60-5.2); RDW 13.2 % (11.6-15.6); WHITE BLOOD COUNT 11.3 K/mm3 (4.0-10.0)
[2018-08-14 08:41] LABS: ANION GAP 8 MMOL/L (8-16); BLOOD UREA NITROGEN 36 mg/dL (7-18); CALCIUM 8.1 mg/dL (8.5-10.1); CHLORIDE 109 mmol/L (98-107); CO2 23 mmol/L (21-32); CREATININE 0.8 mg/dL (0.55-1.3); GLUCOSE,RANDOM 89 mg/dL (74-106); POTASSIUM 4.7 mmol/L (3.5-5.1); SODIUM 140 mmol/L (136-145)
[2018-08-14] MEDS: SOTALOL HCL 80 MG TABLET (FP) PO SCH (08:54)
[2018-08-14] MEDS ORDERED: SULFAMETHOXAZOLE/TRIMETHOPRIM 800MG/160MG D.S. TABLET PO SCH (10:15)
[2018-08-14] MEDS: LOSARTAN POTASSIUM 50 MG TABLET (FP) PO SCH (10:42)
[2018-08-14] MEDS: ASPIRIN 81 MG CHEWABLE TABLETS PO SCH (10:42)
[2018-08-14] MEDS: FUROSEMIDE 20 MG TABLET (FP) PO SCH (10:43)
[2018-08-14] MEDS: hydrALAZINE HCL 50 MG TABLET (FP) PO SCH (10:43)
[2018-08-14] MEDS: COLLAGENASE CLOSTRIDIUM HIST. 30 GRAMS TUBE TP SCH (10:43)
--- NOTE | 2018-08-14 11:40 | PN ---
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 (short form) - Note 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: 83 year old female admitted with SOB and wheezing and accelerated hypertension found to be acute LV failure. H/o of CVA, paroxysmal atrial fib. hypercholesterolemia. Morning blood pressure is elevated. No SOB or chest pain, periods of systolic hypertension. MRI/MRA of the renal arteries was done. Report is still pending. She has been switched to oral antibiotics. Active Medications Acetaminophen (Tylenol -) 650 mg PO Q6H PRN PRN Reason: PAIN LEVEL 1-5 Last Admin: 08/13/18 22:23 Dose: 650 mg Aspirin (Asa -) 81 mg PO DAILY [facility] Last Admin: 08/14/18 10:42 Dose: 81 mg Collagenase (Santyl -) 1 applic TP DAILY [facility]; Protocol Last Admin: 08/14/18 10:43 Dose: 1 applic Furosemide (Lasix -) 20 mg PO DAILY [facility] Last Admin: 08/14/18 10:43 Dose: 20 mg Hydralazine HCl (Apresoline -) 50 mg PO BID [facility] Last Admin: 08/14/18 10:43 Dose: 50 mg Losartan Potassium (Cozaar -) 100 mg PO DAILY [facility] Last Admin: 08/14/18 10:42 Dose: 100 mg Rosuvastatin Calcium (Crestor -) 10 mg PO HS [facility] Last Admin: 08/13/18 22:23 Dose: 10 mg Sotalol HCl (Betapace -) 40 mg PO Q12H [facility] Last Admin: 08/14/18 08:54 Dose: 40 mg Trimethoprim/Sulfamethoxazole (Bactrim Ds -) 1 each PO BID [facility] Last Admin: 08/14/18 10:43 Dose: 1 each Warfarin Sodium (Coumadin -) 2.5 mg PO DAILY@1800 [facility] Last Admin: 08/13/18 17:18 Dose: 2.5 mg 83 year old female in no distress, no pallor, cyanosis, clubbing or jaundice. Last Vital Signs Temp Pulse Resp BP Pulse Ox 98.2 F 66 20 188/81 H 98 08/14/18 10:00 08/14/18 10:00 08/14/18 10:00 08/14/18 10:00 08/14/18 09:00 Intake & Output 08/11/18 08/12/18 08/13/18 08/14/18 23:59 23:59 23:59 23:59 Intake Total 1290 1220 1230 50 Balance 1290 1220 1230 50 Weight 116 lb 3.2 oz 116 lb 119 lb 9.6 oz Laboratory Results - last 24 hr 08/14/18 08/14/18 05:30 05:30 WBC 11.3 H RBC 4.19 Hgb 12.0 Hct 37.4 MCV 89.2 MCH 28.6 MCHC 32.0 RDW 13.2 Plt Count 264 MPV 8.5 Sodium 140 Potassium 4.7 Chloride 109 H Carbon Dioxide 23 Anion Gap 8 BUN 36 H Creatinine 0.8 Creat Clearance w eGFR > 60 Random Glucose 89 Calcium 8.1 L INR: 2.16 NECK; Supple, no JVD, carotids 2+, no bruits or thyromegaly. HEART: PMI in the 5th ICS, no heaves or thrills. Grade I/ apical systolic murmur, no gallops. LUNGS: Clear on auscultation. ABDOMEN: Soft, nontender, no organomegaly. Incisional hernia. EXTREMITIES: Trace left ankle edema. ulcerations left calf, bandaged, slight hyperemia of the right lower calf. IMPRESSION: 1. LV failure,resolved 2. Hypercholesterolemia 3. S/p CVA. 4. Left lower extremity ulcerations. 5. Paroxysmal atrial fibrillation, currently in sinus rhythm. RECOMMENDATIONS: 1. Would care in progress. 2. MRA results are pending. 3. Outpatient follow up at the wound care center. 4. F/u of leukocytosis. 5. Discharge when medically stable and she is normotensive. 6. Dose of hydralazine could be increased to 50 mg BID.
--- NOTE | 2018-08-14 12:13 | PN ---
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 Illness: Pt w/o SOB, cough, palpitations, CP, abd pain, leg pain. - Current Medication List Current Medications: Active Medications Acetaminophen (Tylenol -) 650 mg PO Q6H PRN PRN Reason: PAIN LEVEL 1-5 Last Admin: 08/13/18 22:23 Dose: 650 mg Aspirin (Asa -) 81 mg PO DAILY [facility] Last Admin: 08/14/18 10:42 Dose: 81 mg Collagenase (Santyl -) 1 applic TP DAILY [facility]; Protocol Last Admin: 08/14/18 10:43 Dose: 1 applic Furosemide (Lasix -) 20 mg PO DAILY [facility] Last Admin: 08/14/18 10:43 Dose: 20 mg Hydralazine HCl (Apresoline -) 50 mg PO BID [facility] Last Admin: 08/14/18 10:43 Dose: 50 mg Losartan Potassium (Cozaar -) 100 mg PO DAILY [facility] Last Admin: 08/14/18 10:42 Dose: 100 mg Rosuvastatin Calcium (Crestor -) 10 mg PO HS [facility] Last Admin: 08/13/18 22:23 Dose: 10 mg Sotalol HCl (Betapace -) 40 mg PO Q12H [facility] Last Admin: 08/14/18 08:54 Dose: 40 mg Trimethoprim/Sulfamethoxazole (Bactrim Ds -) 1 each PO BID [facility] Last Admin: 08/14/18 10:43 Dose: 1 each Warfarin Sodium (Coumadin -) 2.5 mg PO DAILY@1800 [facility] Last Admin: 08/13/18 17:18 Dose: 2.5 mg - Objective Vital Signs: Vital Signs Temperature 98.2 F 08/14/18 10:00 Pulse Rate 66 08/14/18 10:00 Respiratory Rate 20 08/14/18 10:00 Blood Pressure 188/81 H 08/14/18 10:00 O2 Sat by Pulse Oximetry (%) 98 08/14/18 09:00 Constitutional: Yes: No Distress, Calm Cardiovascular: Yes: Regular Rate and Rhythm, S1, S2 Respiratory: Yes: Regular, CTA Bilaterally. No: Rales Gastrointestinal: Yes: Normal Bowel Sounds, Soft. No: Tenderness Extremities: Yes: Other (clean dressing) Neurological: Yes: Alert, Oriented Labs: CBC, BMP 08/14/18 05:30 08/14/18 05:30 INR, PTT INR 2.16 (0.83-1.09) H 08/13/18 05:30 - ....Imaging MRI: Report Reviewed Problem List - Problems (1) Acute exacerbation of CHF (congestive heart failure) Code(s): I50.9 - HEART FAILURE, UNSPECIFIED (2) HTN (hypertension) Code(s): I10 - ESSENTIAL (PRIMARY) HYPERTENSION (3) Paroxysmal A-fib Code(s): I48.0 - PAROXYSMAL ATRIAL FIBRILLATION (4) Leg ulcer Code(s): L97.909 - NON-PRS CHRONIC ULC UNSP PRT OF UNSP LOW LEG W UNSP SEVERITY (5) Hypercholesterolemia Code(s): E78.00 - PURE HYPERCHOLESTEROLEMIA, UNSPECIFIED (6) CVA (cerebral vascular accident) Code(s): I63.9 - CEREBRAL INFARCTION, UNSPECIFIED Qualifiers: CVA mechanism: unspecified Qualified Code(s): I63.9 - Cerebral infarction, unspecified (7) Cellulitis Code(s): L03.90 - CELLULITIS, UNSPECIFIED Qualifiers: Site of cellulitis: extremity Site of cellulitis of extremity: lower extremity Laterality: unspecified laterality Qualified Code(s): L03.119 - Cellulitis of unspecified part of limb (8) Leg ulcer, left Code(s): L97.929 - NON-PRS CHRONIC ULC UNSP PRT OF L LOW LEG W UNSP SEVERITY (9) Labile essential hypertension Code(s): I10 - ESSENTIAL (PRIMARY) HYPERTENSION Assessment/Plan Pt with labile BP; Renal artery MRA is pending -if no significant stenosis to DC home with f/u with Dr Quiñones and Darin Cont Sotalol, Losartan, Lasix, Hydralazine- to increase to 75 mg BID Cardiology, ID, Surgery, Podiatry consults and f/u are appreciated Coumadin dose was adjusted. Monitor INR Might go homre today pending MRA report Case was d/w pt's nurse.
[2018-08-14] MEDS ORDERED: hydrALAZINE HCL 50 MG TABLET (FP) PO SCH (12:42)
[2018-08-14] MEDS ORDERED: FLU VACCINE QUAD 60 MCG/0.5 ML (MDV 18-19) IM ONE (13:23)
[2018-08-14 14:17] VITALS: BP 141/71; PULSE 68; TEMP 97.8
--- NOTE | 2018-08-14 23:15 | DS ---
Physical Examination Vital Signs: Vital Signs Temperature 97.8 F 08/14/18 14:00 Pulse Rate 68 08/14/18 14:00 Respiratory Rate 20 08/14/18 10:00 Blood Pressure 141/71 08/14/18 14:00 O2 Sat by Pulse Oximetry (%) 98 08/14/18 09:00 Findings/Remarks: see today 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 for HPI, PE, Plan Labs: CBC, BMP 08/14/18 05:30 08/14/18 05:30 Discharge Summary Reason For Visit: HEART FAILURE Procedures: Principal: Abd MRI and MRA. LE US. CXR Hospital Course: Pt came to ER with progresive SOB, to the point that pt developed dyspneea while talking. Pt was admitted to Telemetry for Acute CHF excerbation and was given IV Lasix, with improvement in symptoms; pt was seen in consult by cardio ( Dr. Quiñones). Pt was noticed to have left leg ulcer, CX was + for MRSA; pt was seen in consult by ID (Dr. Bynum) and surgery (Dr. Webster); pt was treated with IV abtx. Pt also with labile, resistant to meds HTN; to had abd MRI and MRA, without significant renal arteries stenosis. Pt to be DC'ed home with close f/u with Dr. Quiñones and Dr. Webster. Condition: Improved - Instructions Diet, Activity, Other Instructions: Needs BMP, INR checked this week Referrals: ON STAFF,NOT [Primary Care Provider] - Ty Webster MD [Staff Physician] - ([facility]) Kale Quiñones MD [Staff Physician] - (this week) Disposition: HOME - Home Medications Comprehensive Discharge Medication List: Ambulatory Orders see DC instructions
== END 2018-08-14 15:40 | disposition home or self-care (01) | DRG 602 ==
LOC: JER 11:04 → JERBED 17:11 → J4W 22:04
PROVIDERS: ADMIT Internal Medicine; ATTEND Internal Medicine
DX: L03.116 Cellulitis of left lower limb (principal); I50.31 Acute diastolic (congestive) heart failure; D65 Disseminated intravascular coagulation [defibrination syndrome]; L97.828 Non-pressure chronic ulcer of other part of left lower leg with other specified severity; L03.115 Cellulitis of right lower limb; I48.91 Unspecified atrial fibrillation; E78.5 Hyperlipidemia, unspecified; K46.9 Unspecified abdominal hernia without obstruction or gangrene; L89.892 Pressure ulcer of other site, stage 2; I48.0 Paroxysmal atrial fibrillation; R62.7 Adult failure to thrive; A49.02 Methicillin resistant Staphylococcus aureus infection, unspecified site; L60.2 Onychogryphosis; I11.0 Hypertensive heart disease with heart failure; Z87.891 Personal history of nicotine dependence; Z86.718 Personal history of other venous thrombosis and embolism; Z86.73 Personal history of transient ischemic attack (TIA), and cerebral infarction without residual deficits; Z87.442 Personal history of urinary calculi
CPT/HCPCS: 36415; 71046-TC-FY; 80048; 80053; 83735; 83880; 84550; 85025; 85027; 85610; 85651; 87070; 87186; 87205; 90688; 93005; 93010; 93306-TC; 93925-TC; 97116-GP; 97161-GP; 99284-25; C1887; C8902; G0008

== ENCOUNTER 2018-11-11 16:06 | Inpatient (IN) | payer OTHER ==
--- NOTE | 2018-11-11 16:45 | PDOC ---
Attending Attestation - Resident Resident Name: Jaden Gregg - ED Attending Attestation I have performed the following: I have examined & evaluated the patient, The case was reviewed & discussed with the resident, I agree w/resident's findings & plan, Exceptions are as noted - HPI HPI: 11/11/18 16:45 83 yo female reportedly hs a recent cva and fell and hit her head yesterday and today she saw her customer consulting manager who referred her to the emergency dept. The pt is on coumadin for atrial fibrillation 11/11/18 17:32 diff diag includes ACS,cva,subdural hematoma,fractures vertebral fx - Physicial Exam PE: 11/11/18 17:35 alert and conversant 83 yo thin female head 1 cm linear laceration ( 1 day old), bruising over her nasal bridge neck supple Mid thoracic bruising and tenderness around T8 abd reducible ventral hernia cvs reg,irreg rhythm lungs cta b/l extremities no deformities, right shoulder is bruised skin scattered bruising neuro axox3 - Medical Decision Making 11/11/18 17:[address] scan head,ekg,trop,comp,cbc,INR 11/11/18 19:54 ct scan of brain NEGATIVE for any acute intracranial pathology ct scan of c spine no acute fractures,extensive djd inr=1.05 negative trop hyperglycemia <Niki Merino - Last Filed: 11/11/18 19:54> - Medical Decision Making Patient will be admitted to Dr. Schmitz's service for further evaluation. <Elijah Deleon - Last Filed: 11/12/18 01:36>
--- NOTE | 2018-11-11 16:58 | PDOC ---
History of Present Illness - General Chief Complaint: CVA/TIA Stated Complaint: REFFERED BY DR CUETO Time Seen by Provider: 11/11/18 16:38 History Source: Patient Exam Limitations: No Limitations - History of Present Illness Initial Comments: 83 yo F w a pmh of multiple CVAs, AFIB, CHF, DVT, HTN, HLD, Renal calculi, DIC, hysterectomy presents to the ER with questionable stroke symptoms as well as a fall last night on her face and hit her head, face, right shoulder and then landed on her back. She presents with multiple abrasions from the fall on her forehead, left knee, right shoulder, and thoracic back. She reports she is currently on warfarin and aspirin. her son is with her at bedside who reports that he thinks she was slurring her speech somewhat throughout the day as well. The patient says that she has had a cough for the past 10 days which was originally dry but then became productive of green sputum associated with chills and body aches. She says she does not believe she had a fever during this time period. Lastly she endorses some mild right arm weakness but she is not sure if this is true weakness or just pain from the fall. Denies having a headache, blurry vision, fevers, chest pain, nausea, vomiting, diarrhea, constipation, numbness, tingling, or chills. PCP: Costa Schmitz PSH: Hysterectomy, abdominal hernia Social Hx: Former smoker Allergies: TMP-SMX Past History - Past Medical History Allergies/Adverse Reactions: Allergies Allergy/AdvReac Type Severity Reaction Status Date / Time sulfamethoxazole Allergy Verified 08/19/18 09:49 [From Bactrim] trimethoprim [From Bactrim] Allergy Verified 08/19/18 09:49 Home Medications: Ambulatory Orders Aspirin [ASA -] 81 mg PO DAILY #0 tab.chew 09/22/17 Rosuvastatin Calcium [Crestor] 10 mg PO DAILY 01/14/18 Furosemide [Lasix -] 20 mg PO DAILY #30 tablet 01/19/18 Sotalol HCl [Betapace -] 40 mg PO BID #30 tablet 01/19/18 Losartan Potassium [Cozaar -] 100 mg PO DAILY 30 Days #30 tablet 08/14/18 hydrALAZINE HCL [Apresoline -] 75 mg PO BID #90 tablet MDD 2 08/14/18 Amox-Tr/K Cl [Augmentin 875-125mg Tablet -] 1 tab PO BID@0800,1730 8 Days tablet 11/13/18 Apixaban [Eliquis -] 2.5 mg PO BID tablet 11/13/18 Anemia: Yes Asthma: No Cancer: No Cardiac Disorders: Yes (a.fib) CVA: Yes (x3) COPD: No CHF: No DVT: Yes Dementia: No Diabetes: No GI Disorders: Yes Disorders: Yes (KIDNEY STONES) HTN: Yes Hypercholesterolemia: Yes Liver Disease: No Seizures: No Thyroid Disease: No - Surgical History Abdominal Surgery: Yes Appendectomy: Yes Cardiac Surgery: No Cholecystectomy: No Lung Surgery: No Neurologic Surgery: No Orthopedic Surgery: No - Immunization History Immunization Up to Date: Yes - Suicide/Smoking/Psychosocial Hx Smoking History: Never smoked Have you smoked in the past 12 months: No If you are a former smoker, when did you quit?: 40yrs Information on smoking cessation initiated: No 'Breaking Loose' booklet given: 08/05/18 Hx Alcohol Use: No Drug/Substance Use Hx: No Substance Use Type: None Hx Substance Use Treatment: No Review of Systems - Review of Systems Able to Perform ROS?: Yes Comments:: CONSTITUTIONAL: Absent: fever, no chills, no fatigue EYES: Absent: visual changes ENT: Absent: ear pain, no sore throat CARDIOVASCULAR: Absent: chest pain, no palpitations RESPIRATORY: Present: cough, no SOB GI: Absent: abdominal pain, no nausea, no vomiting, no constipation, no diarrhea GENITOURINARY: Absent: dysuria, no frequency, no hematuria MUSKULOSKELETAL: Present: Back pain, arthralgia Absent: no myalgia SKIN: Present: rash NEURO: Absent: headache *Physical Exam - Vital Signs Last Vital Signs Temp Pulse Resp BP Pulse Ox 98.2 F 89 16 169/64 95 11/11/18 16:31 11/11/18 16:31 11/11/18 16:31 11/11/18 16:31 11/11/18 16:31 - Physical Exam General Appearance: Yes: Nourished, Appropriately Dressed. No: Apparent Distress HEENT: positive: EOMI, [place]BASTI[place]N, Normal ENT Inspection, Normal Voice, Nasal Congestion, Rhinorrhea Neck: positive: Trachea midline, Supple. negative: Rigid, Stridor, Lymphadenopathy (R), Lymphadenopathy (L) Respiratory/Chest: positive: Lungs Clear, Normal Breath Sounds. negative: Respiratory Distress, Accessory Muscle Use, Rapid RR, Crackles, Rales, Rhonchi, Stridor, Wheezing Cardiovascular: positive: Regular Rhythm, Regular Rate, S1, S2 Vascular Pulses: Dorsalis-Pedis (R): 2+, Doralis-Pedis (L): 2+ Gastrointestinal/Abdominal: positive: Normal Bowel Sounds, Flat, Soft. negative : Tender, Distended, Guarding, Rebound Rectal Exam: positive: deferred Lymphatic: negative: Adenopathy Musculoskeletal: positive: Decreased Range of Motion (Limited right shoulder mobility), Vertebral Tenderness (Lower thoracic TTP), Other (Left knee tenderness). negative: Normal Inspection, CVA Tenderness Extremity: positive: Normal Capillary Refill. negative: Normal Inspection ( scratches and abrasions on the left knee, right shoulder, forehead, and back), Normal Range of Motion Integumentary: positive: Normal Color, Dry, Warm, Rash Neurologic: positive: hair or beauty salon assistant II-XII NML intact, Fully Oriented, Alert, Normal Mood/ Affect, Normal Response Moderate Sedation - Procedure Monitoring Vital Signs: Procedure Monitoring Vital Signs Temperature 98.2 F 11/11/18 16:31 Pulse Rate 89 11/11/18 16:31 Respiratory Rate 16 11/11/18 16:31 Blood Pressure 169/64 11/11/18 16:31 O2 Sat by Pulse Oximetry (%) 95 11/11/18 16:31 ED Treatment Course - LABORATORY CBC & Chemistry Diagram: 11/13/18 07:00 11/13/18 07:00 Medical Decision Making - Medical Decision Making 83 yo F w a pmh of multiple CVAs, AFIB, CHF, DVT, HTN, HLD, Renal calculi, DIC, hysterectomy presents to the ER with questionable stroke symptoms as well as a fall last night on her face and hit her head, face, right shoulder and then landed on her back. She presents with multiple abrasions from the fall on her forehead, left knee, right shoulder, and thoracic back. She reports she is currently on warfarin and aspirin. her son is with her at bedside who reports that he thinks she was slurring her speech somewhat throughout the day as well. The patient says that she has had a cough for the past 10 days which was originally dry but then became productive of green sputum associated with chills and body aches. She says she does not believe she had a fever during this time period. Lastly she endorses some mild right arm weakness but she is not sure if this is true weakness or just pain from the fall. - VS: WNL DDx IBNLT: CVA/TIA, brain bleed, Sepsis, pneumonia, uri, viral vs bacterial infection, vertebral fx. Plan: Labs, urine, x-rays, EKG, CT, analgesia, re-assess. Labs: CBCD WBC 11.8 K/mm3 (4.0-10.0) H 11/11/18 17:12 RBC 4.57 M/mm3 (3.60-5.2) 11/11/18 17:12 Hgb 13.7 GM/dL (10.7-15.3) 11/11/18 17:12 Hct 40.7 % (32.4-45.2) 11/11/18 17:12 MCV 89.1 fl (80-96) 11/11/18 17:12 MCHC 33.6 g/dl (32.0-36.0) 11/11/18 17:12 RDW 14.8 % (11.6-15.6) D 11/11/18 17:12 Plt Count 214 K/MM3 (134-434) 11/11/18 17:12 MPV 8.4 fl (7.5-11.1) 11/11/18 17:12 CMP Sodium 139 mmol/L (136-145) 11/11/18 17:12 Potassium 4.5 mmol/L (3.5-5.1) 11/11/18 17:12 Chloride 104 mmol/L (98-107) 11/11/18 17:12 Carbon Dioxide 30 mmol/L (21-32) 11/11/18 17:12 Anion Gap 5 MMOL/L (8-16) L 11/11/18 17:12 BUN 21 mg/dL (7-18) H 11/11/18 17:12 Creatinine 1.0 mg/dL (0.55-1.3) 11/11/18 17:12 Creat Clearance w eGFR 52.69 (>60) 11/11/18 17:12 Calcium 8.4 mg/dL (8.5-10.1) L 11/11/18 17:12 Total Bilirubin 1.1 mg/dL (0.2-1) H 11/11/18 17:12 AST 24 U/L (15-37) 11/11/18 17:12 ALT 24 U/L (13-61) 11/11/18 17:12 Alkaline Phosphatase 80 U/L (45-117) 11/11/18 17:12 Total Protein 6.6 g/dl (6.4-8.2) 11/11/18 17:12 Albumin 3.3 g/dl (3.4-5.0) L 11/11/18 17:12 CT results: Head: Impression: Large area of encephalomalacia again seen in the right cerebellum and right posterior temporal and parietal lobe. No gross acute intracranial pathology is identified. However, clinical correlation, follow-up CT scan or MRI is needed in view of the clinical history. Chronic sinusitis mainly involving the ethmoid air cells with a small air-fluid level in the left maxillary antrum suggestive of superimposed acute sinusitis. Neck: The alignment is satisfactory. No gross fracture or subluxation are identified. Multilevel degenerative disc disease with anterior and posterior spur formation as well as bilateral uncovertebral hypertrophy, as described above. Fusion of C6 and C7 vertebral bodies with mild posterior spur formation and bilateral uncovertebral hypertrophy. Small sclerotic density in T1 vertebral body unchanged since prior CT scan of the chest dated 09/[address] Schmitz who accepts patient as admission to his service. *DC/Admit/Observation/Transfer Diagnosis at time of Disposition: URI (upper respiratory infection), Bronchitis, Fall - Discharge Dispostion Condition at time of disposition: Improved Decision to Admit order: Yes - Referrals - Patient Instructions - Post Discharge Activity
[2018-11-11 17:24] LABS: EOS % 1.4 % (0-4.5); HEMATOCRIT 40.7 % (32.4-45.2); HEMOGLOBIN 13.7 GM/dL (10.7-15.3); LYMPH % 6.7 % (8-40); MCHC 33.6 g/dl (32.0-36.0); MEAN CELL VOLUME 89.1 fl (80-96); MEAN PLT VOLUME 8.4 fl (7.5-11.1); MONO % 15.4 % (3.8-10.2); NEUT % 75.5 % (42.8-82.8); PLATELET COUNT 214 K/MM3 (134-434); RBC 4.57 M/mm3 (3.60-5.2); RDW 14.8 % (11.6-15.6); WHITE BLOOD COUNT 11.8 K/mm3 (4.0-10.0)
[2018-11-11 17:39] LABS: ACTIVATED PTT 30.8 SECONDS (25.2-36.5)
[2018-11-11 17:46] LABS: ALBUMIN 3.3 g/dl (3.4-5.0); ALK PHOS 80 U/L (45-117); ANION GAP 5 MMOL/L (8-16); BILIRUBIN,TOTAL 1.1 mg/dL (0.2-1); BLOOD UREA NITROGEN 21 mg/dL (7-18); CALCIUM 8.4 mg/dL (8.5-10.1); CHLORIDE 104 mmol/L (98-107); CHOLESTEROL 148 mg/dL (50-200); CO2 30 mmol/L (21-32); GLUCOSE,RANDOM 191 mg/dL (74-106); HDL CHOLESTEROL 42 mg/dL (40-60); POTASSIUM 4.5 mmol/L (3.5-5.1); SGOT/AST 24 U/L (15-37); SGPT/ALT 24 U/L (13-61); SODIUM 139 mmol/L (136-145); TOT PROT 6.6 g/dl (6.4-8.2); TRIGLYCERIDES 124 mg/dL (0-150)
[2018-11-11 18:00] LABS: INR 1.05 (0.83-1.09); PROTHROMBIN TIME (PATIENT) 12.4 SEC (9.7-13.0)
--- NOTE | 2018-11-11 19:08 | PDOC ---
*Physical Exam - Vital Signs Last Vital Signs Temp Pulse Resp BP Pulse Ox 98.2 F 83 16 169/64 96 11/11/18 16:31 11/11/18 16:59 11/11/18 16:31 11/11/18 16:31 11/11/18 16:59 ED Treatment Course - LABORATORY CBC & Chemistry Diagram: 11/11/18 17:12 11/11/18 17:12 - ADDITIONAL ORDERS Additional order review: Laboratory Results 11/11/18 11/11/18 11/11/18 17:12 17:12 17:12 PT with INR 12.40 INR 1.05 PTT (Actin FS) 30.8 Sodium 139 Potassium 4.5 Chloride 104 Carbon Dioxide 30 Anion Gap 5 L BUN 21 H Creatinine 1.0 Creat Clearance w eGFR 52.69 Random Glucose 191 H Calcium 8.4 L Total Bilirubin 1.1 H AST 24 ALT 24 Alkaline Phosphatase 80 Creatine Kinase 77 Troponin I < 0.02 Total Protein 6.6 Albumin 3.3 L Triglycerides 124 Cholesterol 148 Total LDL Cholesterol 92 HDL Cholesterol 42 Blood Type O POSITIVE Antibody Screen Negative 11/11/18 17:12 RBC 4.57 MCV 89.1 MCHC 33.6 RDW 14.8 D MPV 8.4 Neutrophils % 75.5 Lymphocytes % 6.7 L D Monocytes % 15.4 H Eosinophils % 1.4 Basophils % 1.0 Medical Decision Making - Medical Decision Making 11/11/18 19:07 Received sign out from resident Dr. Patterson. In short, pt is a 83 y/o female presenting s/p fall. Reporting 10 days of productive cough. H/o of multiple CVA with encephalomalacia. Will follow up on CXR, ortho plain films, and urine. 11/11/18 19:[address] Patterson. Pt never examined by this provider. *DC/Admit/Observation/Transfer Diagnosis at time of Disposition: URI (upper respiratory infection), Bronchitis, Fall - Discharge Dispostion Condition at time of disposition: Stable - Referrals Referrals: Kale Quiñones MD [Primary Care Provider] - - Patient Instructions - Post Discharge Activity
[2018-11-11] MEDS ORDERED: ACETAMINOPHEN 1000 MG/100 ML VIAL (NON FORMULARY) IVPB ONE (19:24)
[2018-11-11] MEDS ORDERED: ACETAMINOPHEN INJECTION 100 ML IVPB ONE (19:48)
[2018-11-11] MEDS ORDERED: SOTALOL HCL PO ONE (19:49)
[2018-11-11] MEDS: SODIUM CHLORIDE 1,000 ML IV SCH (19:54)
[2018-11-11] MEDS ORDERED: SOTALOL HCL 80 MG TABLET (FP) PO ONE (20:30)
[2018-11-11 23:17] LABS: URINE APPEARANCE CLEAR; URINE BILIRUBIN NEGATIVE (<2.0 mg/dL); URINE COLOR LTYELLOW; URINE GLUCOSE (UA) NEGATIVE (NEGATIVE); URINE KETONE NEGATIVE (NEGATIVE); URINE LEUK ESTERASE TRACE (NEGATIVE); URINE NITRITE NEGATIVE (NEGATIVE); URINE PROTEIN 3+ (NEGATIVE)
[2018-11-11] MEDS ORDERED: WARFARIN NA 2 MG TABLET (UD) PO ONE (23:45)
[2018-11-11 23:46] LABS: EPI CELLS RARE /HPF (FEW); URINE BACTERIA RARE /hpf (NONE SEEN); URINE MUCUS RARE
--- NOTE | 2018-11-11 23:49 | HP ---
Admitting History and Physical - Primary Care Physician PCP: Costa Schmitz - Admission Chief Complaint: Fall. Head trauma. Sore Throat History of Present Illness: Pt states that developed sore throat for couple of days, w/o fever/ chills/ myalgia; today in AM she was walking and developed a bout of cough and trip and fell hitting her head. Pt states that didn't have CP/ palpitations/ dizziness before or after fall, that didn't pass out. Pt couldn't came up from the floor until her son came to her help. 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 Cardiovascular: Yes: AFIB, CHF, Deep Vein Thrombosis, HTN, Hyperlipdemia Renal/: Yes: Renal Calculi (and sepsis) Heme/Onc: Yes: Other (DIC) - Past Surgical History Past Surgical History: Yes: Hysterectomy (and abdominal hernia) - Smoking History Smoking history: Never smoked Have you smoked in the past 12 months: No If you are a former smoker, when did you quit?: 40yrs - Alcohol/Substance Use Hx Alcohol Use: No Home Medications - Allergies Allergies/Adverse Reactions: Allergies Allergy/AdvReac Type Severity Reaction Status Date / Time sulfamethoxazole Allergy Verified 08/19/18 09:49 [From Bactrim] trimethoprim [From Bactrim] Allergy Verified 08/19/18 09:49 - Home Medications Home Medications: Ambulatory Orders Aspirin [ASA -] 81 mg PO DAILY #0 tab.chew 09/22/17 Rosuvastatin Calcium [Crestor] 10 mg PO DAILY 01/14/18 Warfarin Na [Coumadin -] 2 mg PO DAILY@1800 01/14/18 Furosemide [Lasix -] 20 mg PO DAILY #30 tablet 01/19/18 Sotalol HCl [Betapace -] 40 mg PO BID #30 tablet 01/19/18 Collagenase Clostridium Hist. [Santyl -] 1 applic TP DAILY #1 tube MDD 1 Losartan Potassium [Cozaar -] 100 mg PO DAILY 30 Days #30 tablet 08/14/18 Sulfamethoxazole/Trimethoprim [Bactrim DS -] 1 each PO BID 10 Days #20 tablet MDD 2 08/14/18 Warfarin Na [Coumadin -] 3 mg PO DAILY@1800 tablet 08/14/18 hydrALAZINE HCL [Apresoline -] 75 mg PO BID #90 tablet MDD 2 08/14/18 Review of Systems - Review of Systems Constitutional: denies: Chills, Fever Eyes: denies: Blurred Vision, Double Vision HENT: reports: Nasal Congestion, Throat Pain, Other (no headache). denies: Ear Discharge, Ear Pain Cardiovascular: denies: Chest Pain, Edema, Palpitations Respiratory: reports: Cough. denies: SOB, SOB on Exertion, Wheezing Gastrointestinal: denies: Abdominal Pain, Diarrhea, Nausea, Vomiting Genitourinary: denies: Burning, Discharge Musculoskeletal: reports: Joint Pain (after the fall). denies: Back Pain, Muscle Pain Integumentary: reports: Bruising. denies: Rash Neurological: denies: Change in LOC, Change in Speech, Numbness, Tremors, Unsteady Gait Endocrine: denies: Excessive Sweating, Intolerance to Cold Hematology/Lymphatic: denies: Easily Bruised, Excessive Bleeding Psychiatric: denies: Anxiety, Depression Physical Examination Vital Signs: Vital Signs Temperature 98.2 F 11/11/18 16:31 Pulse Rate 104 H 11/11/18 22:40 Respiratory Rate 16 11/11/18 22:40 Blood Pressure 120/87 11/11/18 22:40 O2 Sat by Pulse Oximetry (%) 100 11/11/18 22:40 Constitutional: Yes: No Distress, Calm Eyes: Yes: Conjunctiva Clear, EOM Intact, PERRL HENT: Yes: Pharyngeal Erythema. No: Epistaxis, Rhinnorhea Neck: Yes: Trachea Midline. No: Lymphadenopathy Cardiovascular: Yes: Regular Rate and Rhythm, S1, S2 Respiratory: Yes: Regular, CTA Bilaterally. No: Rhonchi Gastrointestinal: Yes: Normal Bowel Sounds, Soft. No: Tenderness ...Rectal Exam: Yes: Deferred Renal/: No: CVA Tenderness - Left, CVA Tenderness - Right Breast(s): Yes: Other (deferred) Musculoskeletal: No: Joint Stiffness, Joint Swelling Edema: No Integumentary: Yes: Other (multiple bruises on the arms, shoulders.) Labs: CBC, BMP 11/11/18 17:12 11/11/18 17:12 Problem List - Problems (1) Fall Code(s): W19.XXXA - UNSPECIFIED FALL, INITIAL ENCOUNTER (2) Head trauma Code(s): S09.90XA - UNSPECIFIED INJURY OF HEAD, INITIAL ENCOUNTER (3) Acute bacterial pharyngitis Code(s): J02.8 - ACUTE PHARYNGITIS DUE TO OTHER SPECIFIED ORGANISMS; B96.89 - OTH BACTERIAL AGENTS THE CAUSE OF DISEASES CLASSD ELSWHR (4) CVA (cerebral vascular accident) Code(s): I63.9 - CEREBRAL INFARCTION, UNSPECIFIED (5) HTN (hypertension) Code(s): I10 - ESSENTIAL (PRIMARY) HYPERTENSION (6) Hypercholesterolemia Code(s): E78.00 - PURE HYPERCHOLESTEROLEMIA, UNSPECIFIED (7) Paroxysmal A-fib Code(s): I48.0 - PAROXYSMAL ATRIAL FIBRILLATION Assessment/Plan Abtx Restart home meds Pt with frequent falls Consider Neuro consult ( per AM examination) AM labs
[2018-11-11] MEDS ORDERED: AMOX TR/POT CLAV 875MG/125MG TABLETS (FP) PO ONE (23:51)
[2018-11-12] MEDS ORDERED: AMOX TR/POT CLAV 875MG/125MG TABLETS (FP) ONE (00:20)
[2018-11-12 06:00] VITALS: BMI 20.8
[2018-11-12] MEDS: ASPIRIN 81 MG CHEWABLE TABLETS PO SCH (09:53)
[2018-11-12] MEDS: LOSARTAN POTASSIUM 50 MG TABLET (FP) PO SCH (09:53)
[2018-11-12] MEDS: hydrALAZINE HCL 25 MG TABLET (FP) PO SCH ×2 (09:53→22:10)
[2018-11-12] MEDS: SOTALOL HCL 80 MG TABLET (FP) PO SCH ×2 (09:53→22:10)
[2018-11-12] MEDS: FUROSEMIDE 20 MG TABLET (FP) PO SCH (09:54)
[2018-11-12 10:26] LABS: HEMATOCRIT 39.5 % (32.4-45.2); HEMOGLOBIN 13.7 GM/dL (10.7-15.3); MCH 31.2 pg (25.7-33.7); MCHC 34.7 g/dl (32.0-36.0); MEAN PLT VOLUME 8.3 fl (7.5-11.1); PLATELET COUNT 201 K/MM3 (134-434); RBC 4.38 M/mm3 (3.60-5.2); RDW 14.4 % (11.6-15.6); WHITE BLOOD COUNT 9.3 K/mm3 (4.0-10.0)
[2018-11-12 11:16] LABS: ANION GAP 6 MMOL/L (8-16); BLOOD UREA NITROGEN 17 mg/dL (7-18); CALCIUM 8.4 mg/dL (8.5-10.1); CHLORIDE 109 mmol/L (98-107); CO2 28 mmol/L (21-32); CREATININE 0.8 mg/dL (0.55-1.3); GLUCOSE,RANDOM 131 mg/dL (74-106); POTASSIUM 4.3 mmol/L (3.5-5.1); SODIUM 143 mmol/L (136-145)
--- NOTE | 2018-11-12 16:21 | PN ---
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 Illness: Pt w/o motor or sensory deficit in UE/ LE/ face. Pt w/o fever, chills, CP, palpitations, dizziness, abd pain - Current Medication List Current Medications: Active Medications Amoxicillin/Clavulanate Potassium (Augmentin - 875mg Tablet) 1 tab PO BID@0800, 1730 [facility] Aspirin (Asa -) 81 mg PO DAILY [facility] Last Admin: 11/12/18 09:53 Dose: 81 mg Furosemide (Lasix -) 20 mg PO DAILY [facility] Last Admin: 11/12/18 09:54 Dose: 20 mg Hydralazine HCl (Apresoline -) 75 mg PO BID [facility] Last Admin: 11/12/18 09:53 Dose: 75 mg Sodium Chloride (Normal Saline -) 1,000 mls @ 42 mls/hr IV ASDIR [facility] Last Admin: 11/11/18 19:54 Dose: 42 mls/hr Losartan Potassium (Cozaar -) 100 mg PO DAILY [facility] Last Admin: 11/12/18 09:53 Dose: 100 mg Rosuvastatin Calcium (Crestor -) 10 mg PO HS [facility] Sotalol HCl (Betapace -) 40 mg PO BID [facility] Last Admin: 11/12/18 09:53 Dose: 40 mg - Objective Vital Signs: Vital Signs Temperature 98.3 F 11/12/18 14:00 Pulse Rate 90 11/12/18 14:00 Respiratory Rate 20 11/12/18 14:00 Blood Pressure 100/68 11/12/18 14:00 O2 Sat by Pulse Oximetry (%) 97 11/12/18 11:30 Constitutional: Yes: No Distress, Calm Cardiovascular: Yes: Regular Rate and Rhythm, S1, S2 Respiratory: Yes: Regular, Other (coarse BS) Gastrointestinal: Yes: Normal Bowel Sounds, Soft. No: Tenderness Edema: No Neurological: Yes: Alert, Oriented (person), Other (pt seems a little slow at times. Motor and sensory examination is symmetric in UE/ LE/ face) Labs: CBC, BMP 11/12/18 10:00 11/12/18 10:00 INR, PTT INR 1.05 (0.83-1.09) 11/11/18 17:12 Problem List - Problems (1) Fall Code(s): W19.XXXA - UNSPECIFIED FALL, INITIAL ENCOUNTER (2) Head trauma Code(s): S09.90XA - UNSPECIFIED INJURY OF HEAD, INITIAL ENCOUNTER (3) Acute bacterial pharyngitis Code(s): J02.8 - ACUTE PHARYNGITIS DUE TO OTHER SPECIFIED ORGANISMS; B96.89 - OTH BACTERIAL AGENTS THE CAUSE OF DISEASES CLASSD ELSWHR (4) CVA (cerebral vascular accident) Code(s): I63.9 - CEREBRAL INFARCTION, UNSPECIFIED (5) HTN (hypertension) Code(s): I10 - ESSENTIAL (PRIMARY) HYPERTENSION (6) Hypercholesterolemia Code(s): E78.00 - PURE HYPERCHOLESTEROLEMIA, UNSPECIFIED (7) Paroxysmal A-fib Code(s): I48.0 - PAROXYSMAL ATRIAL FIBRILLATION (8) Subtherapeutic international normalized ratio (INR) Code(s): R79.1 - ABNORMAL COAGULATION PROFILE Assessment/Plan Repeat Head CT Pt is refusing Heparin IV or to change Coumadin to NOAC, although is aware of risks associated with low INR (including CVA). To give extra dose of Coumadin. INR in AM Neuro consult Cardio consult, pt's condition was d/w Dr. Sheikh Hein AM labs
--- NOTE | 2018-11-12 16:31 | EKG ---
Test Reason : Blood Pressure : / mmHG Vent. Rate : 079 BPM Atrial Rate : 079 BPM P-R Int : 130 ms QRS Dur : 086 ms QT Int : 404 ms P-R-T Axes : 049 060 060 degrees QTc Int : 463 ms SINUS RHYTHM WITH PREMATURE ATRIAL COMPLEXES MINIMAL VOLTAGE CRITERIA FOR LVH, MAY BE NORMAL VARIANT NONSPECIFIC ST ABNORMALITY ABNORMAL ECG WHEN COMPARED WITH ECG OF 05-AUG-2018 15:27, PREMATURE ATRIAL COMPLEXES ARE NOW PRESENT Confirmed by Stanley New ([id number]) on 11/12/2018 4:30:51 PM Referred By: Confirmed By:Stanley New
--- NOTE | 2018-11-12 17:27 | CONS ---
DATE OF CONSULTATION: CARDIOLOGY CONSULTATION REQUESTING PHYSICIAN: Costa Schmitz M.D. CHIEF COMPLAINT: History of fall. Probable loss of consciousness. 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 Patient history was partly obtained from her son, who stated that he found her lying face down in the house, and she was not responsive and had lost control over her bowels. He was not sure as to how long she had been lying on the floor. She refused to go to the emergency room, and after being bathed she went to bed. The following day, the son called and described her injuries and was advised to have her transported to the emergency room. According to her son, he felt that she probably lost consciousness, but she states that she tripped over some boxes and fell. There is no history of chest pain or discomfort either at rest or with exertion. No exertion of dyspnea reported. No history of paroxysmal nocturnal dyspnea or orthopnea. No history of recent pedal edema. PAST HISTORY: 1. As mentioned in the history of present illness. 2. Status post septicemia related to renal lithiasis. 3. History of hyperuricemia. SURGICAL HISTORY: Status post hysterectomy. 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 Stopped smoking several years ago. States that she has a social drink. FAMILY HISTORY: Father in his 50s related to complications of carcinoma of the colon. He was hypertensive and had coronary artery disease. Mother in her 60s apparently related to an infectious process. One brother who has dilated congestive cardiomyopathy and has permanent atrial fibrillation and also has chronic lymphocytic leukemia. ALLERGIES: Denies any allergies. MEDICATION: 1. Losartan 100 mg p.o. daily. 2. Sotalol 40 mg p.o. b.i.d. 3. Hydralazine 75 mg p.o. b.i.d. 4. Crestor 10 mg p.o. daily. 5. Furosemide 20 mg p.o. daily. 6. Aspirin 81 mg p.o. daily. 7. Warfarin dose is uncertain. Currently she is receiving 4 mg because of subtherapeutic INR. REVIEW OF SYSTEMS: HEENT: Denies having headaches, diplopia, blurred vision, no history of epistaxis, hoarseness, tinnitus, or deafness reported. Cardiovascular: See history of present illness. Respiratory: Denies any cough, expectoration, or hemoptysis. Gastrointestinal: No history of nausea, vomiting, melena, or hematemesis. Urological: See history of present illness. No history of seizures. Musculoskeletal: No history of myalgias or arthralgias reported. Endocrine: No history of diabetes mellitus, or known endocrine disorder. Hematological: No history of anemia. History of multiple ecchymosis and according to the son, there was bleeding from the forehead. PHYSICAL EXAMINATION: General: An 83-year-old female who was agitated, no pallor, cyanosis, clubbing or jaundice. Vital signs: Blood pressure 100/68 mmHg. Pulse 90 beats per minute and irregularly irregular. Respirations 20 per minute. Temperature 98.3 degrees Fahrenheit. Head: Patient had small laceration on the forehead which is not bleeding. She has ecchymosis on the right side of the face and also on the right side of the neck. Neck: Supple. No jugulovenous distention, carotids were 2+, upstrokes were normal, no bruits were heard, and no thyromegaly was present. Heart: PMI was in the 5th intercostal space, no heaves or thrills. S1 was variable, S2 was normal. Grade 1/6 systolic ejection murmur was heard at the 2nd right intercostal space. No diastolic murmur or gallops were heard. Lungs: Clear on auscultation. Chest: Ecchymosis involving the right shoulder and clavicular area. Expansion was symmetrical. Abdomen: Soft, protuberant and nontender. No hepatosplenomegaly. She has umbilical hernia and an incisional hernia. Multiple incisional scars. Extremities: No calf tenderness or dependent edema, femoral pulses were 2+, dorsalis pedis pulses were weak. Posterior tibial pulses could not be palpated. LABORATORY DATA: On November 12, 2018: WBC count 9300, hemoglobin 13.7 g, platelet count 201,000. Chemistry: sodium 143, potassium 4.3, chloride 109, CO2 of 28 mmol/L. BUN 17, creatinine 0.8 mg/dL. Random glucose 131 mg/dL. Calcium was 8.4 mg/dL. Total cholesterol: 148, triglycerides 124, LDL cholesterol 92, HDL cholesterol 42. INR was subtherapeutic at 1.05. ECG is not available. X-ray chest, impression: Since prior x-ray dated August 05, 2018, cardiac silhouette remains within normal limits in size. Atherosclerotic calcification of the aortic arch. The lung is clear. Mediastinum and visualized osseus structures appear intact. IMPRESSION: 1. Hypertension. Hypertensive cardiovascular disease. 2. History of a fall, syncope cannot be excluded. 3. Multiple ecchymosis and small laceration of the forehead. 4. History of left ventricular diastolic dysfunction. 5. Paroxysmal atrial fibrillation. 6. Hypercholesterolemia. 7. Status post cerebrovascular accident. 8. Status post left ventricular failure. 9. History of recurring falls. RECOMMENDATION: 1. Patient will need neurological evaluation. 2. Physical therapy and neuropsychological evaluation at the rehabilitation center. 3. Continue medications as outlined. 4. patient may be better anticoagulated with , but she refuses to consider them. 5. ECG. 6. Consider Holter monitor. Prognosis guarded. Thank you for your referral. Yours sincerely, DOUG CUETO M.D. [id number]
[2018-11-12] MEDS: AMOX TR/POT CLAV 875MG/125MG TABLETS (FP) PO SCH (17:51)
[2018-11-12] MEDS ORDERED: WARFARIN NA 2 MG TABLET (UD) PO ONE (18:00)
--- NOTE | 2018-11-12 19:02 | CONSULT ---
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 Case discussed with Dr. Alisson Schmitz [facility] sig for HTN, ASHD, CHF and Afib. Meds include: Aspirin 81; Crestor; Coumadin; Furosemide; Sotalol 40 mg PO BID; Losartan; Bactrim DS; and hydrALAZINE. Today she was cleaning her home when she had the urge to defecate and ambulated to bathroom but had unwitnessed LOC. Pt. Denied prodromal symptoms but her son, alerted by her fall, suggested brief LOC. Fecal incontinence apparently occurred. Pt C/O right shoulder pain with mov't. Not using a cane or walker at home. In ER CT of head (reviewed): Old right cerebellar and right parietal CVA's; atrophy; ex vacuo hydrocephalus and microvascular changes. INR= 1.05. Pt is refusing heparin. Given 4 mg coumadin today. Repeat CT unchanged CT of C-spine. Diffuse spondylosis without fracture or HNP. Foraminal stenosis at C4C5 on right possible R C5 root impingement. CONNOR: Right supraorbital and bridge of nose ecchymoses. Pain on Right shoulder ROM. - Weiss's signs. - Orbital ecchymoses. NEURO: [facility]. 1917. Trump. Poor reversals and recalls 1 of 3. Speech sl. dysarthric CN II-XII: Left homonomous hemianopsia. Full EOM's. No facial. Decreased tongue MARISA's. Gag OK Motor: Min right drift but grasps 5/5 B/L. No focal weakness. Sl increased reflexes on left. Coord: No obvious FTN dystaxia Sensory: Decreased vib feet. Romberg - Gait: Sl. flexed. Wide-based. Unsteady with turns. IMP: Fall with head trauma. R/O Syncope. R/O seizure due to old CVA's. 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 Hydrocephalus may be contributing. Mild underlying OMS SUGGEST: Re-Anticoagulate expeditiously Check B12, TSH. Check orthostatic BP's. Compare ventricular diameter to prior CT scans. PT for gait training with quad cane and/or walker. EEG. Telemetry/holter and cardiac evaluation as per Dr. Quiñones. Thank you esvin craig, Suman Pérez MD
[2018-11-12] MEDS: ROSUVASTATIN CA 10 MG TABLET (FP) PO SCH (22:11)
[2018-11-13 08:02] LABS: BASO % 0.8 % (0-2.0); EOS % 4.5 % (0-4.5); HEMATOCRIT 37.5 % (32.4-45.2); HEMOGLOBIN 12.7 GM/dL (10.7-15.3); MCH 30.1 pg (25.7-33.7); MCHC 33.7 g/dl (32.0-36.0); MEAN CELL VOLUME 89.1 fl (80-96); MEAN PLT VOLUME 8.5 fl (7.5-11.1); MONO % 29.6 % (3.8-10.2); NEUT % 51.1 % (42.8-82.8); PLATELET COUNT 208 K/MM3 (134-434); RBC 4.21 M/mm3 (3.60-5.2); RDW 14.8 % (11.6-15.6); WHITE BLOOD COUNT 7.4 K/mm3 (4.0-10.0)
[2018-11-13 08:32] LABS: ANION GAP 7 MMOL/L (8-16); BLOOD UREA NITROGEN 20 mg/dL (7-18); CALCIUM 7.8 mg/dL (8.5-10.1); CHLORIDE 110 mmol/L (98-107); CO2 25 mmol/L (21-32); CREATININE 0.7 mg/dL (0.55-1.3); GLUCOSE,RANDOM 107 mg/dL (74-106); POTASSIUM 3.8 mmol/L (3.5-5.1); SODIUM 142 mmol/L (136-145)
[2018-11-13 09:09] LABS: INR 0.98 (0.83-1.09); PROTHROMBIN TIME (PATIENT) 11.6 SEC (9.7-13.0)
--- NOTE | 2018-11-13 10:31 | PN ---
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 Patient has periods of agitation and wants to leave the hospital. She remains unsteady and has been advised that she needs physical therapy and also may neuropsychological re-evaluation. No history of chest pain or discomfort either at rest or with exertion. No exertion of dyspnea reported. No history of paroxysmal nocturnal dyspnea or orthopnea. No history of recent pedal edema. Patient has refused physical therapy and does not want to undergo holter monitoring. Active Medications Amoxicillin/Clavulanate Potassium (Augmentin - 875mg Tablet) 1 tab PO BID@0800, 1730 [facility] Last Admin: 11/12/18 17:51 Dose: 1 tab Aspirin (Asa -) 81 mg PO DAILY [facility] Last Admin: 11/12/18 09:53 Dose: 81 mg Furosemide (Lasix -) 20 mg PO DAILY [facility] Last Admin: 11/12/18 09:54 Dose: 20 mg Hydralazine HCl (Apresoline -) 75 mg PO BID [facility] Last Admin: 11/12/18 22:10 Dose: 75 mg Sodium Chloride (Normal Saline -) 1,000 mls @ 42 mls/hr IV ASDIR [facility] Last Admin: 11/11/18 19:54 Dose: 42 mls/hr Losartan Potassium (Cozaar -) 100 mg PO DAILY [facility] Last Admin: 11/12/18 09:53 Dose: 100 mg Rosuvastatin Calcium (Crestor -) 10 mg PO HS [facility] Last Admin: 11/12/18 22:11 Dose: 10 mg Sotalol HCl (Betapace -) 40 mg PO BID [facility] Last Admin: 11/12/18 22:10 Dose: 40 mg An 83-year-old female who was agitated, no pallor, cyanosis, clubbing or jaundice. Last Vital Signs Temp Pulse Resp BP Pulse Ox 98.5 F 78 20 155/76 97 11/13/18 06:00 11/13/18 06:00 11/13/18 06:00 11/13/18 06:00 11/13/18 03:00 Neck: Supple. No jugulovenous distention, carotids were 2+, upstrokes were normal, no bruits were heard, and no thyromegaly was present. Heart: PMI was in the 5th intercostal space, no heaves or thrills. S1 was variable, S2 was normal. Grade I/ systolic ejection murmur was heard at the 2nd right intercostal space. No diastolic murmur or gallops were heard. Lungs: Clear on auscultation. Chest: Ecchymosis involving the right shoulder and clavicular area. Expansion was symmetrical. Abdomen: Soft, protuberant and nontender. No hepatosplenomegaly. She has umbilical hernia and an incisional hernia. Multiple incisional scars. Extremities: No calf tenderness or dependent edema, femoral pulses were 2+, dorsalis pedis pulses were weak. Posterior tibial pulses could not be palpated. CBC, BMP 11/13/18 07:00 11/13/18 07:[address] 11/12/18 Impression No significant interval change or gross acute intracranial pathology. Mild chronic sinusitis. IMPRESSION: 1. Hypertension. Hypertensive cardiovascular disease. 2. History of a fall, syncope cannot be excluded. 3. Multiple ecchymosis and small laceration of the forehead. 4. History of left ventricular diastolic dysfunction. 5. Paroxysmal atrial fibrillation. 6. Hypercholesterolemia. 7. Status post cerebrovascular accident. 8. Status post left ventricular failure. 9. History of recurring falls. 10. Poor Compliance. RECOMMENDATION: 1. Patient will need neurological evaluation. 2. Physical therapy and neuropsychological evaluation at the rehabilitation center. 3. Continue medications as outlined. 4. Patient was again advised that she should consider Eliquis as she remains sub-theraputic on Warfarin and has not been following dietary instructions. She is aware of risks associated with NOAC. DOUG CUETO M.D.
[2018-11-13] MEDS: LOSARTAN POTASSIUM 50 MG TABLET (FP) PO SCH (11:02)
[2018-11-13] MEDS: FUROSEMIDE 20 MG TABLET (FP) PO SCH (11:02)
[2018-11-13] MEDS: ASPIRIN 81 MG CHEWABLE TABLETS PO SCH (11:02)
[2018-11-13] MEDS: SOTALOL HCL 80 MG TABLET (FP) PO SCH ×2 (11:03→21:33)
[2018-11-13] MEDS: hydrALAZINE HCL 25 MG TABLET (FP) PO SCH ×2 (11:03→21:33)
[2018-11-13] MEDS: AMOX TR/POT CLAV 875MG/125MG TABLETS (FP) PO SCH ×2 (11:03→18:56)
[2018-11-13 11:19] LABS: ANISOCYTOSIS 1+; MACROCYTOSIS 0; PLATELET ESTIMATE NORMAL
--- NOTE | 2018-11-13 12:10 | PN ---
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 Illness: Pt w/o motor or sensory deficit in UE/ LE/ face. Pt w/o fever, chills, CP, palpitations, dizziness, abd pain. Pt is sitting in the chair, she states that doesn't want anymore tests ( including the Holter monitor), wants to go to Rehab or will sign out AMA. I d/w about her Coumadin dose and INR results; pt states that is not taking Coumadin all the time; I reinforced to pt the need for compliance with Coumadin , to avoid a new stroke. Pt states that doesn't wants to deal with INR anymore and wants to change to Eliquis - pt states that she was adviced in the past about it, including by Dr. Major, and she is aware about risks associated with this medication. - Current Medication List Current Medications: Active Medications Amoxicillin/Clavulanate Potassium (Augmentin - 875mg Tablet) 1 tab PO BID@0800, 1730 [facility] Last Admin: 11/13/18 11:03 Dose: 1 tab Aspirin (Asa -) 81 mg PO DAILY [facility] Last Admin: 11/13/18 11:02 Dose: 81 mg Furosemide (Lasix -) 20 mg PO DAILY [facility] Last Admin: 11/13/18 11:02 Dose: 20 mg Hydralazine HCl (Apresoline -) 75 mg PO BID [facility] Last Admin: 11/13/18 11:03 Dose: 75 mg Sodium Chloride (Normal Saline -) 1,000 mls @ 42 mls/hr IV ASDIR [facility] Last Admin: 11/11/18 19:54 Dose: 42 mls/hr Losartan Potassium (Cozaar -) 100 mg PO DAILY [facility] Last Admin: 11/13/18 11:02 Dose: 100 mg Rosuvastatin Calcium (Crestor -) 10 mg PO HS [facility] Last Admin: 11/12/18 22:11 Dose: 10 mg Sotalol HCl (Betapace -) 40 mg PO BID [facility] Last Admin: 11/13/18 11:03 Dose: 40 mg Warfarin Sodium (Coumadin -) 5 mg PO ONCE@1800 ONE Stop: 11/13/18 18:01 - Objective Vital Signs: Vital Signs Temperature 98.5 F 11/13/18 06:00 Pulse Rate 78 11/13/18 06:00 Respiratory Rate 20 11/13/18 06:00 Blood Pressure 155/76 11/13/18 06:00 O2 Sat by Pulse Oximetry (%) 97 11/13/18 03:00 Constitutional: Yes: No Distress, Calm Cardiovascular: Yes: Regular Rate and Rhythm, S1, S2 Respiratory: Yes: Regular, CTA Bilaterally. No: Rales Gastrointestinal: Yes: Normal Bowel Sounds, Soft. No: Tenderness Edema: No Neurological: Yes: Alert, Oriented Labs: CBC, BMP 11/13/18 07:00 11/13/18 07:00 INR, PTT INR 0.98 (0.83-1.09) 11/13/18 07:00 Problem List - Problems (1) Fall Code(s): W19.XXXA - UNSPECIFIED FALL, INITIAL ENCOUNTER (2) Head trauma Code(s): S09.90XA - UNSPECIFIED INJURY OF HEAD, INITIAL ENCOUNTER (3) Acute bacterial pharyngitis Code(s): J02.8 - ACUTE PHARYNGITIS DUE TO OTHER SPECIFIED ORGANISMS; B96.89 - OTH BACTERIAL AGENTS THE CAUSE OF DISEASES CLASSD ELSWHR (4) CVA (cerebral vascular accident) Code(s): I63.9 - CEREBRAL INFARCTION, UNSPECIFIED (5) HTN (hypertension) Code(s): I10 - ESSENTIAL (PRIMARY) HYPERTENSION (6) Hypercholesterolemia Code(s): E78.00 - PURE HYPERCHOLESTEROLEMIA, UNSPECIFIED (7) Paroxysmal A-fib Code(s): I48.0 - PAROXYSMAL ATRIAL FIBRILLATION (8) Subtherapeutic international normalized ratio (INR) Code(s): R79.1 - ABNORMAL COAGULATION PROFILE Assessment/Plan Repeated Head CT w/o change To start [facility], adjusted to age and weight. Cardio, Neuro consults are appreciated; pt's condition was d/w Dr. Cruz and agrees with Sangeetha and DC to Rehab, as pt is refusing further tests. To DC to Rehab, d/w AMA and nurse.
--- NOTE | 2018-11-13 13:00 | DS ---
Physical Examination Vital Signs: Vital Signs Temperature 98.5 F 11/13/18 06:00 Pulse Rate 78 11/13/18 06:00 Respiratory Rate 20 11/13/18 06:00 Blood Pressure 155/76 11/13/18 06:00 O2 Sat by Pulse Oximetry (%) 97 11/13/18 03:00 Findings/Remarks: See 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 for HPI, ROS, PE, Plan. Time spent for managing patient's care: over 50 minutes Labs: CBC, BMP 11/13/18 07:00 11/13/18 07:00 Discharge Summary Reason For Visit: UPPER RESPIRATORY TRACT INFECTION,BRONCHITIS Current Active Problems Acute bacterial pharyngitis (Acute) Bronchitis (Acute) Fall (Acute) Head trauma (Acute) Subtherapeutic international normalized ratio (INR) (Acute) URI (upper respiratory infection) (Acute) Procedures: Principal: Head CT scan X 2. XR's Hospital Course: Pt came to ER s/p fall at home, while walking and coughing and tripping; pt hit her head, couldn't get up and waited for her son. Pt had negative Head CT scans (X2), and joints XRs. Pt was noticed to have normal INR (consistant with noncompliance with Coumadin, fact stated by patient later); she refused any type of anticoagulation other than Coumadin until the discharge day when asked to be switched to Eliquis (it was offered to her in the past). Pt was started on PO Augmentin for acute Pharyngitis. Pt was seen Cardio (Dr Sandhu) and Neuro (Dr. Pérez); pt refused further workup for her fall. She agree to go to Rehab. Condition: Improved - Instructions Diet, Activity, Other Instructions: Low salt, low cholesterol Referrals: Kale Quiñones MD [Primary Care Provider] - [facility]position[facility] - Home Medications Comprehensive Discharge Medication List: Ambulatory Orders see DC instructions
[2018-11-13] MEDS: APIXABAN 2.5 MG TABLET PO SCH ×3 (13:47→21:33)
[2018-11-13] MEDS: SODIUM CHLORIDE 1,000 ML IV SCH (16:17)
[2018-11-13] MEDS ORDERED: WARFARIN NA 5 MG TABLET (UD) PO ONE (18:00)
[2018-11-13] MEDS: ROSUVASTATIN CA 10 MG TABLET (FP) PO SCH (21:33)
[2018-11-14] MEDS: AMOX TR/POT CLAV 875MG/125MG TABLETS (FP) PO SCH ×2 (08:55→18:37)
[2018-11-14] MEDS: LOSARTAN POTASSIUM 50 MG TABLET (FP) PO SCH (10:59)
[2018-11-14] MEDS: ASPIRIN 81 MG CHEWABLE TABLETS PO SCH (10:59)
[2018-11-14] MEDS: APIXABAN 2.5 MG TABLET PO SCH ×2 (10:59→21:26)
[2018-11-14] MEDS: hydrALAZINE HCL 25 MG TABLET (FP) PO SCH ×2 (10:59→21:26)
[2018-11-14] MEDS: FUROSEMIDE 20 MG TABLET (FP) PO SCH (11:00)
[2018-11-14] MEDS: SOTALOL HCL 80 MG TABLET (FP) PO SCH ×2 (11:00→21:24)
--- NOTE | 2018-11-14 12:09 | PN ---
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 (short form) - Note 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: NEUROLOGY PROGRESS: Events reviewed and discussed with staff. INR 1.05 with refusal of coumadin. Transitioned to eliquis 2.5 mg po bid. Pending D/C to rehab center. Continues on Augmentin for pharyngitis. Pt doing well without complaints at this time. CONNOR: Fading Right supraorbital and bridge of nose ecchymoses. Normal shoulder mechanics. NEURO: Ox [facility]. 2018. "Hernandez's Day" Trump. Poor reversals and recalls 1 of 3. Speech fluent. CN II-XII: Left homonomous hemianopsia. Full EOM's. Gag OK Motor: No focal weakness. Coord: No obvious FTN dystaxia Sensory: Decreased vib feet. Romberg - Gait: Sl. flexed. Wide-based. Unsteady with turns. IMP: Fall with head trauma. R/O Syncope. R/O seizure due to old CVA's. 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 Hydrocephalus may be contributing. Mild underlying OMS SUGGEST: Continue NOAC therapy as outpatient Continue outpatient PT for gait training with quad cane and/or walker. Neuro f/u and EEG as outpatient. Thank you very much, Suman Pérez MD
--- NOTE | 2018-11-14 14:39 | PN ---
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 Illness: Pt w/o motor or sensory deficit in UE/ LE/ face. Pt w/o fever, chills, CP, palpitations, dizziness, abd pain. Pr is upset that her dentures were lost. Pt want to go to Rehab as feels that is weak and cannot manage it home. - Current Medication List Current Medications: Active Medications Amoxicillin/Clavulanate Potassium (Augmentin - 875mg Tablet) 1 tab PO BID@0800, 1730 [facility] Last Admin: 11/14/18 08:55 Dose: 1 tab Apixaban (Eliquis -) 2.5 mg PO BID [facility] Last Admin: 11/14/18 10:59 Dose: 2.5 mg Aspirin (Asa -) 81 mg PO DAILY [facility] Last Admin: 11/14/18 10:59 Dose: 81 mg Furosemide (Lasix -) 20 mg PO DAILY [facility] Last Admin: 11/14/18 11:00 Dose: 20 mg Hydralazine HCl (Apresoline -) 75 mg PO BID [facility] Last Admin: 11/14/18 10:59 Dose: 75 mg Sodium Chloride (Normal Saline -) 1,000 mls @ 42 mls/hr IV ASDIR [facility] Last Admin: 11/13/18 16:17 Dose: Not Given Losartan Potassium (Cozaar -) 100 mg PO DAILY [facility] Last Admin: 11/14/18 10:59 Dose: 100 mg Rosuvastatin Calcium (Crestor -) 10 mg PO HS [facility] Last Admin: 11/13/18 21:33 Dose: Not Given Sotalol HCl (Betapace -) 40 mg PO BID [facility] Last Admin: 11/14/18 11:00 Dose: 40 mg - Objective Vital Signs: Vital Signs Temperature 97.3 F L 11/14/18 06:00 Pulse Rate 70 11/14/18 13:37 Respiratory Rate 22 H 11/14/18 13:37 Blood Pressure 128/51 L 11/14/18 13:37 O2 Sat by Pulse Oximetry (%) 97 11/13/18 19:00 Constitutional: Yes: No Distress, Calm Cardiovascular: Yes: Pulse Irregular, S1, S2 Respiratory: Yes: Regular, CTA Bilaterally Gastrointestinal: Yes: Normal Bowel Sounds, Soft. No: Tenderness Edema: No Neurological: Yes: Alert, Oriented Labs: CBC, BMP 11/13/18 07:00 11/13/18 07:00 INR, PTT INR 0.98 (0.83-1.09) 11/13/18 07:00 Problem List - Problems (1) Fall Code(s): W19.XXXA - UNSPECIFIED FALL, INITIAL ENCOUNTER (2) Head trauma Code(s): S09.90XA - UNSPECIFIED INJURY OF HEAD, INITIAL ENCOUNTER (3) Acute bacterial pharyngitis Code(s): J02.8 - ACUTE PHARYNGITIS DUE TO OTHER SPECIFIED ORGANISMS; B96.89 - OTH BACTERIAL AGENTS THE CAUSE OF DISEASES CLASSD ELSWHR (4) CVA (cerebral vascular accident) Code(s): I63.9 - CEREBRAL INFARCTION, UNSPECIFIED (5) HTN (hypertension) Code(s): I10 - ESSENTIAL (PRIMARY) HYPERTENSION (6) Hypercholesterolemia Code(s): E78.00 - PURE HYPERCHOLESTEROLEMIA, UNSPECIFIED (7) Paroxysmal A-fib Code(s): I48.0 - PAROXYSMAL ATRIAL FIBRILLATION (8) Subtherapeutic international normalized ratio (INR) Code(s): R79.1 - ABNORMAL COAGULATION PROFILE Assessment/Plan Repeated Head CT w/o change when caomparing with previous one. Pt was started on Eliquist, adjusted to age and weight, tolerating it well. Cardio, Neuro consults are appreciated; To DC to Rehab. Pt's care was reviewed with her nurse.
[2018-11-14] MEDS: ROSUVASTATIN CA 10 MG TABLET (FP) PO SCH (21:26)
--- NOTE | 2018-11-15 10:46 | PN ---
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 Illness: Pt w/o fever, chills, cough, CP, palpitations, dizziness, abd pain. Pt want to go to Rehab as feels that is weak and cannot manage it home. - Current Medication List Current Medications: Active Medications Amoxicillin/Clavulanate Potassium (Augmentin - 875mg Tablet) 1 tab PO BID@0800, 1730 [facility] Last Admin: 11/14/18 18:37 Dose: Not Given Apixaban (Eliquis -) 2.5 mg PO BID [facility] Last Admin: 11/14/18 21:26 Dose: Not Given Aspirin (Asa -) 81 mg PO DAILY [facility] Last Admin: 11/14/18 10:59 Dose: 81 mg Furosemide (Lasix -) 20 mg PO DAILY [facility] Last Admin: 11/14/18 11:00 Dose: 20 mg Hydralazine HCl (Apresoline -) 75 mg PO BID [facility] Last Admin: 11/14/18 21:26 Dose: Not Given Sodium Chloride (Normal Saline -) 1,000 mls @ 42 mls/hr IV ASDIR [facility] Last Admin: 11/13/18 16:17 Dose: Not Given Losartan Potassium (Cozaar -) 100 mg PO DAILY [facility] Last Admin: 11/14/18 10:59 Dose: 100 mg Rosuvastatin Calcium (Crestor -) 10 mg PO HS [facility] Last Admin: 11/14/18 21:26 Dose: Not Given Sotalol HCl (Betapace -) 40 mg PO BID [facility] Last Admin: 11/14/18 21:24 Dose: 40 mg - Objective Vital Signs: Vital Signs Temperature 97.6 F 11/15/18 05:44 Pulse Rate 65 11/15/18 05:44 Respiratory Rate 20 11/15/18 05:44 Blood Pressure 153/88 11/15/18 05:44 O2 Sat by Pulse Oximetry (%) 97 11/14/18 11:00 Constitutional: Yes: No Distress, Calm Cardiovascular: Yes: Pulse Irregular, S1, S2 Respiratory: Yes: Regular, CTA Bilaterally. No: Rales Gastrointestinal: Yes: Normal Bowel Sounds, Soft. No: Tenderness Edema: No Neurological: Yes: Alert, Oriented Labs: CBC, BMP 11/13/18 07:00 11/13/18 07:00 INR, PTT INR 0.98 (0.83-1.09) 11/13/18 07:00 Problem List - Problems (1) Fall Code(s): W19.XXXA - UNSPECIFIED FALL, INITIAL ENCOUNTER (2) Head trauma Code(s): S09.90XA - UNSPECIFIED INJURY OF HEAD, INITIAL ENCOUNTER (3) Acute bacterial pharyngitis Code(s): J02.8 - ACUTE PHARYNGITIS DUE TO OTHER SPECIFIED ORGANISMS; B96.89 - OTH BACTERIAL AGENTS THE CAUSE OF DISEASES CLASSD ELSWHR (4) CVA (cerebral vascular accident) Code(s): I63.9 - CEREBRAL INFARCTION, UNSPECIFIED (5) HTN (hypertension) Code(s): I10 - ESSENTIAL (PRIMARY) HYPERTENSION (6) Hypercholesterolemia Code(s): E78.00 - PURE HYPERCHOLESTEROLEMIA, UNSPECIFIED (7) Paroxysmal A-fib Code(s): I48.0 - PAROXYSMAL ATRIAL FIBRILLATION (8) Subtherapeutic international normalized ratio (INR) Code(s): R79.1 - ABNORMAL COAGULATION PROFILE Assessment/Plan Pt was started on Eliquist, adjusted to age and weight, tolerating it well. Cardio, Neuro consults are appreciated; To DC to Rehab. Pt's care was reviewed with her nurse and PT (pt is refusing cane, holding on the banister for balance, while supported by PT).
[2018-11-15] MEDS: AMOX TR/POT CLAV 875MG/125MG TABLETS (FP) PO SCH (11:53)
[2018-11-15] MEDS: LOSARTAN POTASSIUM 50 MG TABLET (FP) PO SCH (11:54)
[2018-11-15] MEDS: hydrALAZINE HCL 25 MG TABLET (FP) PO SCH (11:54)
[2018-11-15] MEDS: SOTALOL HCL 80 MG TABLET (FP) PO SCH (11:54)
[2018-11-15] MEDS: APIXABAN 2.5 MG TABLET PO SCH (11:54)
[2018-11-15] MEDS: ASPIRIN 81 MG CHEWABLE TABLETS PO SCH (11:54)
[2018-11-15] MEDS: FUROSEMIDE 20 MG TABLET (FP) PO SCH (11:54)
--- NOTE | 2018-11-15 13:30 | PN ---
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 Patient has periods of agitation and wants to leave the hospital. She remains unsteady and has been advised that she needs physical therapy and also may neuropsychological re-evaluation. No history of chest pain or discomfort either at rest or with exertion. No exertion of dyspnea reported. No history of paroxysmal nocturnal dyspnea or orthopnea. No history of recent pedal edema. Patient has refused physical therapy and does not want to undergo holter monitoring. Patient is scheduled to be transferred to SNF for rehab. Active Medications Amoxicillin/Clavulanate Potassium (Augmentin - 875mg Tablet) 1 tab PO BID@0800, 1730 [facility] Last Admin: 11/12/18 17:51 Dose: 1 tab Aspirin (Asa -) 81 mg PO DAILY [facility] Last Admin: 11/12/18 09:53 Dose: 81 mg Furosemide (Lasix -) 20 mg PO DAILY [facility] Last Admin: 11/12/18 09:54 Dose: 20 mg Hydralazine HCl (Apresoline -) 75 mg PO BID [facility] Last Admin: 11/12/18 22:10 Dose: 75 mg Sodium Chloride (Normal Saline -) 1,000 mls @ 42 mls/hr IV ASDIR [facility] Last Admin: 11/11/18 19:54 Dose: 42 mls/hr Losartan Potassium (Cozaar -) 100 mg PO DAILY [facility] Last Admin: 11/12/18 09:53 Dose: 100 mg Rosuvastatin Calcium (Crestor -) 10 mg PO HS [facility] Last Admin: 11/12/18 22:11 Dose: 10 mg Sotalol HCl (Betapace -) 40 mg PO BID [facility] Last Admin: 11/12/18 22:10 Dose: 40 mg 83-year-old female who was agitated, no pallor, cyanosis, clubbing or jaundice. Last Vital Signs Temp Pulse Resp BP Pulse Ox 98.2 F 70 21 H 147/58 L 98 11/15/18 13:37 11/15/18 13:37 11/15/18 13:37 11/15/18 13:37 11/15/18 11:00 Neck: Supple. No jugulovenous distention, carotids were 2+, upstrokes were normal, no bruits were heard, and no thyromegaly was present. Heart: PMI was in the 5th intercostal space, no heaves or thrills. S1 was variable, S2 was normal. Grade I/ systolic ejection murmur was heard at the 2nd right intercostal space. No diastolic murmur or gallops were heard. Lungs: Clear on auscultation. Chest: Ecchymosis involving the right shoulder and clavicular area. Expansion was symmetrical. Abdomen: Soft, protuberant and nontender. No hepatosplenomegaly. She has umbilical hernia and an incisional hernia. Multiple incisional scars. Extremities: No calf tenderness or dependent edema, femoral pulses were 2+, dorsalis pedis pulses were weak. Posterior tibial pulses could not be palpated. CBC, BMP 11/13/18 07:00 11/13/18 07:00 IMPRESSION: 1. Hypertension. Hypertensive cardiovascular disease. 2. History of a fall, syncope cannot be excluded. 3. Periods of agitation, etiology to be determined. 4. History of left ventricular diastolic dysfunction. 5. Paroxysmal atrial fibrillation. 6. Hypercholesterolemia. 7. Status post cerebrovascular accident. 8. Status post left ventricular failure. 9. History of recurring falls. 10. Poor Compliance. RECOMMENDATION: 1. Awaiting transfer to [facility]. 2. Physical therapy and neuropsychological evaluation at the rehabilitation center. 3. Continue medications as outlined. 4. As patient is unable to maintain therapeutic INR on Coumadin, consider use of Eliquis. DOUG CUETO M.D.
[2018-11-15 13:38] VITALS: BP 147/58; PULSE 70; TEMP 98.2
== END 2018-11-15 14:30 | DRG 914 ==
LOC: JER 16:06 → JERBED 19:51 → INTOOBSV 19:51 → J6S 11-12 05:37 → OBSVTOIN 11-14 17:25
PROVIDERS: ADMIT Specialist; ATTEND Specialist
DX: S09.90XA Unspecified injury of head, initial encounter (principal); I48.91 Unspecified atrial fibrillation; I11.0 Hypertensive heart disease with heart failure; I50.9 Heart failure, unspecified; Z86.718 Personal history of other venous thrombosis and embolism; Z86.73 Personal history of transient ischemic attack (TIA), and cerebral infarction without residual deficits; J06.9 Acute upper respiratory infection, unspecified; I48.0 Paroxysmal atrial fibrillation; R29.6 Repeated falls; R79.1 Abnormal coagulation profile; R27.0 Ataxia, unspecified; J02.8 Acute pharyngitis due to other specified organisms; W01.0XXA Fall on same level from slipping, tripping and stumbling without subsequent striking against object, initial encounter; E78.5 Hyperlipidemia, unspecified; Y93.89 Activity, other specified; Y92.89 Other specified places as the place of occurrence of the external cause; Y99.8 Other external cause status; Z91.14 Patient's other noncompliance with medication regimen
CPT/HCPCS: 36415; 70450-TC; 71045-TC-FY; 72070-TC-FY; 72100-TC-FY; 72125-TC; 73030-TC-RT-FY; 73560-TC-LT-FY; 80048; 80053; 81003; 81015; 82465; 82550; 83718; 83721; 84478; 84484; 85025; 85027; 85610; 85730; 86850; 86900; 86901; 93005; 93010; 97116-GP; 97161-GP; 99285-25; G0378; J0131; J7030

== ENCOUNTER 2019-09-16 13:57 | Inpatient (IN) | payer OTHER ==
[2019-09-16 14:19] VITALS: BMI 20.1
[2019-09-16] MEDS ORDERED: ALBUTEROL SO4 2.5/IPRATROPIUM 0.5 INH SOL 3 ML VIAL.NEB. NEB ONE ×3 (14:24→15:02)
[2019-09-16] MEDS ORDERED: methylPREDNISolone NA SUCC 125 MG/2 ML VIAL IVPUSH ONE (14:28)
--- NOTE | 2019-09-16 14:41 | PDOC ---
History of Present Illness <Monica Sue - Last Filed: 09/16/19 16:06> - History of Present Illness Initial Comments: 09/16/19 14:42 84yo F with PMH of Afib (eliquis), CVA x3 (most recent 08/2017), DVT, HTN, HLD from [facility] who presents with 1 week of cough productive of white phlegm and some shortness of breath. The patient denies any fevers, chest pain, abdominal pain, dysuria or any other complaints. She reports there was another resident in her facility that had the flu. ROS GENERAL/CONSTITUTIONAL: No fever or chills. No weakness. HEAD, EYES, EARS, NOSE AND THROAT: No ear pain or discharge. No sore throat. CARDIOVASCULAR: No chest pain, +shortness of breath RESPIRATORY: + cough, wheezing, or hemoptysis. GASTROINTESTINAL: No nausea, vomiting, diarrhea or constipation. GENITOURINARY: No dysuria, frequency, or change in urination. MUSCULOSKELETAL: No joint or muscle swelling or pain. No neck or back pain. SKIN: No rash PE GENERAL: Awake, alert, and fully oriented, in no acute distress HEAD: No signs of trauma, normocephalic, atraumatic EYES: EOMI, sclera anicteric, conjunctiva clear ENT: oropharynx clear without exudates. Moist mucosa NECK: Normal ROM, supple LUNGS: No distress, speaks full sentences, + diffuse expiratory wheeze HEART: Regular rate and rhythm, normal S1 and S2, no murmurs, rubs or gallops, peripheral pulses normal and equal bilaterally. ABDOMEN: Soft, nontender No guarding, no rebound. No masses EXTREMITIES : Normal inspection, Normal range of motion, no edema. No clubbing or cyanosis. NEUROLOGICAL: Cranial nerves II through XII grossly intact. Normal speech, no focal sensorimotor deficits SKIN: Warm, Dry, normal turgor, no rashes or lesions noted MDM DDX including but not limited to: pna vs flu ED Course: + UTI CXR with no focal infiltrate patient reassessed after 3 duoneb treatements, found to have improved but persistent expiratory wheeze, with o2 sat at 92 at rest plan to admit for respiratory distress and uti will dose ceftriaxone Page sent to PCP Dr. Schmitz at [phone] pending call back for admission Radha Wilkes PGY2 Emergency Medicine 09/16/19 16:22 <Radha Wilkes - Last Filed: 09/16/19 16:22> - General Chief Complaint: Respiratory Stated Complaint: Cough/wheezing Time Seen by Provider: 09/16/19 14:20 Past History <Monica Sue - Last Filed: 09/16/19 16:06> - Past Medical History Anemia: Yes Asthma: No Cancer: No Cardiac Disorders: Yes (a.fib) CVA: Yes (x3) COPD: No CHF: No DVT: Yes Dementia: No Diabetes: No GI Disorders: Yes Disorders: Yes (KIDNEY STONES) HTN: Yes Hypercholesterolemia: Yes Liver Disease: No Seizures: No Thyroid Disease: No - Surgical History Abdominal Surgery: Yes Appendectomy: Yes Cardiac Surgery: No Cholecystectomy: No Lung Surgery: No Neurologic Surgery: No Orthopedic Surgery: No - Immunization History Immunization Up to Date: Yes - Psycho Social/Smoking Cessation Hx Smoking History: Former smoker Have you smoked in the past 12 months: No If you are a former smoker, when did you quit?: 40yrs Information on smoking cessation initiated: No 'Breaking Loose' booklet given: 08/05/18 Hx Alcohol Use: No Drug/Substance Use Hx: No Substance Use Type: None Hx Substance Use Treatment: No <Radha Wilkes - Last Filed: 09/16/19 16:22> - Past Medical History Allergies/Adverse Reactions: Allergies Allergy/AdvReac Type Severity Reaction Status Date / Time sulfamethoxazole Allergy Verified 09/16/19 14:19 [From Bactrim] trimethoprim [From Bactrim] Allergy Verified 09/16/19 14:19 Home Medications: Ambulatory Orders Apixaban [Eliquis -] 2.5 mg PO BID #60 tablet 05/23/19 Aspirin [ASA -] 81 mg PO DAILY #30 tab.chew 05/23/19 Citalopram Hydrobromide [Celexa -] 10 mg PO DAILY #30 tablet 05/23/19 Furosemide [Lasix -] 20 mg PO DAILY #30 tablet 05/23/19 Losartan Potassium [Cozaar -] 100 mg PO DAILY 30 Days #30 tablet 05/23/19 Metoprolol Succinate [Toprol Xl -] 50 mg PO DAILY #30 tablet 05/23/19 Rosuvastatin Calcium [Crestor] 10 mg PO DAILY #30 tablet 05/23/19 hydrALAZINE HCL [Apresoline -] 25 mg PO BID [facility]D 2 09/16/19 *Physical Exam - Vital Signs Last Vital Signs Temp Pulse Resp BP Pulse Ox 97.7 F 75 24 H 155/98 95 09/16/19 14:13 09/16/19 14:13 09/16/19 14:13 09/16/19 14:13 09/16/19 15:56 <Monica Sue Shirley - Last Filed: 09/16/19 16:06> - Vital Signs Last Vital Signs Temp Pulse Resp BP Pulse Ox 97.7 F 75 24 H 155/98 95 09/16/19 14:13 09/16/19 14:13 09/16/19 14:13 09/16/19 14:13 09/16/19 14:13 <Radha Wilkes - Last Filed: 09/16/19 16:22> ED Treatment Course - LABORATORY CBC & Chemistry Diagram: 09/16/19 14:30 09/16/19 14:30 - ADDITIONAL ORDERS Additional order review: Laboratory Results 09/16/19 09/16/19 09/16/19 14:30 14:30 14:30 WBC RBC Hgb Hct MCV MCH MCHC RDW Plt Count MPV Absolute Neuts (auto) Neutrophils % Lymphocytes % Monocytes % Eosinophils % Basophils % Nucleated RBC % Sodium 140 Potassium 4.5 Chloride 105 Carbon Dioxide 28 Anion Gap 8 BUN 19.9 H Creatinine 1.0 Est GFR (CKD-EPI)AfAm 59.08 Est GFR (CKD-EPI)NonAf 50.97 Random Glucose 81 Calcium 8.4 L Phosphorus 3.4 Magnesium 2.2 Total Bilirubin 0.7 AST 38 H ALT 28 Alkaline Phosphatase 92 Total Protein 6.4 Albumin 2.8 L Urine Color Yellow Urine Appearance Cloudy Urine pH 5.0 Ur Specific [place] 1.011 Urine Protein 1+ H Urine Glucose (UA) Negative Urine Ketones Negative Urine Blood Negative Urine Nitrite Positive H Urine Bilirubin Negative Urine Urobilinogen 0.2 Ur Leukocyte Esterase 1+ H Urine WBC (Auto) 43 Urine RBC (Auto) 4 Urine Casts (Auto) 6 U Epithel Cells (Auto) 0.7 Urine Bacteria (Auto) 6341.8 Influenza A (Rapid) Influenza B (Rapid) 09/16/19 09/16/19 14:30 14:30 WBC 8.9 RBC 4.45 Hgb 13.2 Hct 38.8 MCV 87.1 MCH 29.7 MCHC 34.1 RDW 14.3 Plt Count 252 MPV 7.9 Absolute Neuts (auto) 5.9 Neutrophils % 66.1 Lymphocytes % 11.8 D Monocytes % 20.9 H Eosinophils % 0.4 D Basophils % 0.8 Nucleated RBC % 0 Sodium Potassium Chloride Carbon Dioxide Anion Gap BUN Creatinine Est GFR (CKD-EPI)AfAm Est GFR (CKD-EPI)NonAf Random Glucose Calcium Phosphorus Magnesium Total Bilirubin AST ALT Alkaline Phosphatase Total Protein Albumin Urine Color Urine Appearance Urine pH Ur Specific [place] Urine Protein Urine Glucose (UA) Urine Ketones Urine Blood Urine Nitrite Urine Bilirubin Urine Urobilinogen Ur Leukocyte Esterase Urine WBC (Auto) Urine RBC (Auto) Urine Casts (Auto) U Epithel Cells (Auto) Urine Bacteria (Auto) Influenza A (Rapid) Negative Influenza B (Rapid) Negative 09/16/19 14:30 RBC 4.45 MCV 87.1 MCHC 34.1 RDW 14.3 MPV 7.9 Neutrophils % 66.1 Lymphocytes % 11.8 D Monocytes % 20.9 H Eosinophils % 0.4 D Basophils % 0.8 - RADIOLOGY Radiology Studies Ordered: Category Date Time Status CHEST X-RAY PORTABLE* [RAD] Stat Radiology 09/16/19 14:22 Taken - Medications Given in the ED: ED Medications Discontinued Medications Generic Name Dose Route Start Last Admin Trade Name Freq PRN Reason Stop Dose Admin Albuterol/Ipratropium 1 amp 09/16/19 14:24 09/16/19 14:30 Duoneb - NEB 09/16/19 14:25 1 amp ONCE ONE Administration Methylprednisolone Sodium Succinate 125 mg 09/16/19 14:28 09/16/19 15:10 Solu-Medrol - IVPUSH 09/16/19 14:29 125 mg ONCE ONE Administration <Monica Sue - Last Filed: 09/16/19 16:06> - LABORATORY CBC & Chemistry Diagram: 09/16/19 14:30 09/16/19 14:30 <Radha Wilkes - Last Filed: 09/16/19 16:22> Discharge - Discharge Information Problems reviewed: Yes <Monica Sue - Last Filed: 09/16/19 16:06> <Radha Wilkes - Last Filed: 09/16/19 16:22> - Discharge Information Clinical Impression/Diagnosis: Wheezing Acute bronchitis Qualifiers: Bronchitis organism: unspecified organism Qualified Code(s): J20.9 - Acute bronchitis, unspecified UTI (urinary tract infection) Qualifiers: Urinary tract infection type: site unspecified - Follow up/Referral Referrals: Kale Quiñones MD [Primary Care Provider] - - Patient Discharge Instructions - Post Discharge Activity
[2019-09-16 14:49] LABS: EPI CELLS 0.7 /HPF (0-5/HPF); HYALINE CASTS 6 /lpf (0-8); URINE APPEARANCE CLOUDY; URINE BACTERIA 6341.8 /hpf (NEGATIVE); URINE BILIRUBIN NEGATIVE (NEGATIVE); URINE COLOR YELLOW; URINE GLUCOSE (UA) NEGATIVE (NEGATIVE); URINE KETONE NEGATIVE (NEGATIVE); URINE LEUK ESTERASE 1+ (NEGATIVE); URINE NITRITE POSITIVE (NEGATIVE); URINE PROTEIN 1+ (NEGATIVE); URINE RBC 4 /hpf (0-4); URINE UROBILINOGEN 0.2 mg/dL (0.2-1.0); URINE WBC 43 /hpf (0-5)
--- NOTE | 2019-09-16 14:58 | PDOC ---
Attending Attestation - Resident Resident Name: ChungRadha - ED Attending Attestation I have performed the following: I have examined & evaluated the patient, The case was reviewed & discussed with the resident, I agree w/resident's findings & plan - HPI HPI: 09/16/19 16:05 84yo F with PMH of Afib (Eliquis), CVA x3 (most recent 08/2017), DVT, HTN, HLD from [facility] who presents with 1 week of cough productive of white phlegm and some shortness of breath, wheezing. She reports there was another resident in her facility that had the flu. 09/16/19 16:24 - Physicial Exam PE: 09/16/19 14:57 Agree with the resident's HPI and PE as documented in the electronic medical record. pleasant demented EOMI, PERRL, nl conjunctiva, anicteric; neck supple. lungs with b/l wheezing, tachycardic, irregularly irregular, abdomen soft nontender. no rebound, guarding. Back nontender. FLOWERS x4, no focal neuro deficits. No peripheral edema. normal color for ethnicity, WWP. 09/16/19 16:21 09/16/19 16:23 - Medical Decision Making 09/16/19 14:57 Vital Signs Temp Pulse Resp BP Pulse Ox 97.7 F 75 24 H 155/98 95 09/16/19 14:13 09/16/19 14:13 09/16/19 14:13 09/16/19 14:13 09/16/19 14:13 Differential diagnosis includes viral syndrome, pneumonia, influenza, pulmonary edema, pleurisy, pleural effusion, anemia, dehydration, anemia/electrolyte abnormalities, infection, Laboratory work-up is unremarkable, no WBC count, electrolytes and creatinine are within normal limits. Flu negative. Chest x-ray appears clear no evidence of pneumonia. given duonebs and solumedrol, for wheezing pt does get hypoxic on RA to 90-91%, so placed on 2L O2 already on Eliquis for AC/Afib, unlikely PE given she is anticoagulated. empiric coverage with Azithromycin/ceftriaxone for pna, given her wheeze/pna, risk factors, [place] residence and hypoxia, sick contacts diltiazem 10mg x1 for Afib RVR, min symptomatic likely from wheeze/treatments. has h/o Afib, held off on BB due to wheezing and negating effect of the albuterol. Afib RVR controlled with low dose CCB for now Laboratory results are faxed over to her nursing facility at [facility] due to influenza presents there and Department of Health currently being involved. Prior history of E. coli and Klebsiella, relatively pansensitive to multiple antibiotics. We will treat the UTI with ceftriaxone IV. Admit for urinary tract infection, bronchitis (URI/viral syndrome), hypoxia requiring some O2. Dr Schmitz 09/16/19 16:25 09/16/19 17:27 09/16/19 17:41 Heart Score/ECG Review #1 ECG reviewed & interpreted by me at: 14:15 09/16/19 16:29 Atrial fibrillation at 108 bpm, nonspecific T wave abnormalities could be rate related, intermittent PVCs are noted, narrow QRS, normal intervals, patient with a history of atrial fibrillation
[2019-09-16] MEDS ORDERED: methylPREDNISolone NA SUCC 125 MG/2 ML VIAL ONE (15:02)
[2019-09-16] MEDS ORDERED: ALBUTEROL SO4 2.5/IPRATROPIUM 0.5 INH SOL 3 ML VIAL.NEB. NEB SCH (15:15)
[2019-09-16 15:22] LABS: BASO % 0.8 % (0-2.0); EOS % 0.4 % (0-4.5); HEMATOCRIT 38.8 % (32.4-45.2); HEMOGLOBIN 13.2 GM/dL (10.7-15.3); LYMPH % 11.8 % (8-40); MCH 29.7 pg (25.7-33.7); MCHC 34.1 g/dl (32.0-36.0); MEAN CELL VOLUME 87.1 fl (80-96); MEAN PLT VOLUME 7.9 fl (7.5-11.1); MONO % 20.9 % (3.8-10.2); NEUT % 66.1 % (42.8-82.8); PLATELET COUNT 252 K/MM3 (134-434); RBC 4.45 M/mm3 (3.60-5.2); RDW 14.3 % (11.6-15.6); WHITE BLOOD COUNT 8.9 K/mm3 (4.0-10.0)
[2019-09-16 15:52] LABS: ALBUMIN 2.8 g/dl (3.4-5.0); BILIRUBIN,TOTAL 0.7 mg/dL (0.2-1); BLOOD UREA NITROGEN 19.9 mg/dL (7-18); CALCIUM 8.4 mg/dL (8.5-10.1); PHOSPHOROUS 3.4 mg/dL (2.5-4.9); POTASSIUM 4.5 mmol/L (3.5-5.1); TOT PROT 6.4 g/dl (6.4-8.2)
[2019-09-16] MEDS ORDERED: AZITHROMYCIN 250 MG TABLET PO ONE (16:20)
[2019-09-16] MEDS ORDERED: CEPHALEXIN MONOHYDRATE 500 MG CAPSULE (UD) PO ONE (16:23)
[2019-09-16] MEDS ORDERED: CEFTRIAXONE 1 GM/50 ML BAG ONE (16:36)
[2019-09-16] MEDS ORDERED: AZITHROMYCIN 250 MG TABLET ONE (16:36)
[2019-09-16] MEDS ORDERED: CEPHALEXIN MONOHYDRATE 500 MG CAPSULE (UD) ONE (16:36)
[2019-09-16] MEDS ORDERED: dilTIAZem HCL 50 MG/10 ML - 10 ML VIAL IVPUSH ONE (17:27)
[2019-09-16] MEDS ORDERED: dilTIAZem HCL 125 MG/25 ML - 25 ML VIAL ONE (17:31)
[2019-09-16 19:02] LABS: PLATELET ESTIMATE ADEQUATE
--- NOTE | 2019-09-16 19:46 | HP ---
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: CVA Cardiovascular: Yes: AFIB (on AC), CHF, Deep Vein Thrombosis, HTN, Hyperlipdemia Renal/: Yes: Renal Calculi (and sepsis) Heme/Onc: Yes: Other (DIC) - Past Surgical History Past Surgical History: Yes: Hysterectomy (and abdominal hernia) - Smoking History Smoking history: Former smoker (for many years) Have you smoked in the past 12 months: No If you are a former smoker, when did you quit?: 40yrs - Alcohol/Substance Use Hx Alcohol Use: No Home Medications - Allergies Allergies/Adverse Reactions: Allergies Allergy/AdvReac Type Severity Reaction Status Date / Time sulfamethoxazole Allergy Verified 09/16/19 14:19 [From Bactrim] trimethoprim [From Bactrim] Allergy Verified 09/16/19 14:19 - Home Medications Home Medications: Ambulatory Orders Apixaban [Eliquis -] 2.5 mg PO BID #60 tablet 05/23/19 Aspirin [ASA -] 81 mg PO DAILY #30 tab.chew 05/23/19 Citalopram Hydrobromide [Celexa -] 10 mg PO DAILY #30 tablet 05/23/19 Furosemide [Lasix -] 20 mg PO DAILY #30 tablet 05/23/19 Losartan Potassium [Cozaar -] 100 mg PO DAILY 30 Days #30 tablet 05/23/19 Metoprolol Succinate [Toprol Xl -] 50 mg PO DAILY #30 tablet 05/23/19 Rosuvastatin Calcium [Crestor] 10 mg PO DAILY #30 tablet 05/23/19 hydrALAZINE HCL [Apresoline -] 25 mg PO BID MDD 2 09/16/19 Review of Systems - Review of Systems Constitutional: reports: Chills. denies: Fever Eyes: denies: Blurred Vision, Recent Change in Vision HENT: denies: Ear Discharge, Nasal Congestion, Throat Pain Neck: denies: Pain on Movement, Tenderness Cardiovascular: denies: Chest Pain, Edema, Palpitations Respiratory: reports: Cough, Wheezing. denies: Hemoptysis Gastrointestinal: denies: Abdominal Pain, Diarrhea, Vomiting Genitourinary: denies: Burning, Discharge, Dysuria, Flank Pain Musculoskeletal: denies: Back Pain, Joint Pain, Joint Swelling Integumentary: denies: Bruising, Rash Neurological: denies: Change in LOC, Confusion, Numbness, Weakness Endocrine: denies: Intolerance to Cold, Intolerance to Heat Hematology/Lymphatic: denies: Easily Bruised, Excessive Bleeding Psychiatric: denies: Anxiety, Depression Physical Examination Vital Signs: Vital Signs Temperature 98.3 F 09/16/19 19:07 Pulse Rate 103 H 09/16/19 19:07 Respiratory Rate 20 09/16/19 19:07 Blood Pressure 116/73 09/16/19 19:07 O2 Sat by Pulse Oximetry (%) 93 L 09/16/19 19:07 Constitutional: Yes: No Distress, Calm Eyes: Yes: Conjunctiva Clear, EOM Intact HENT: Yes: Normocephalic. No: Pharyngeal Erythema, Rhinnorhea Neck: Yes: Trachea Midline. No: Lymphadenopathy Cardiovascular: Yes: Pulse Irregular, S1, S2 Respiratory: Yes: Regular, Rales, Other (coarse BS blateral,) Gastrointestinal: Yes: Normal Bowel Sounds, Soft. No: Tenderness ...Rectal Exam: Yes: Deferred Renal/: No: CVA Tenderness - Left, CVA Tenderness - Right Breast(s): Yes: Other (deferred) Musculoskeletal: No: Back Pain, Joint Stiffness, Joint Swelling Extremities: No: Cold, Cyanosis Edema: No Integumentary: No: Jaundice, Rash Neurological: Yes: Alert, Oriented, Other (motor and sensory examination is grossly intact) Psychiatric: Yes: Alert, Oriented Labs: CBC, BMP 09/16/19 14:30 09/16/19 14:30 Imaging - Results Chest X-ray: Report Reviewed Problem List - Problems (1) Acute bronchitis Code(s): J20.9 - ACUTE BRONCHITIS, UNSPECIFIED Qualifiers: Bronchitis organism: unspecified organism Qualified Code(s): J20.9 - Acute bronchitis, unspecified (2) Wheezing Code(s): R06.2 - WHEEZING (3) UTI (urinary tract infection) Code(s): N39.0 - URINARY TRACT INFECTION, SITE NOT SPECIFIED Qualifiers: Urinary tract infection type: site unspecified (4) CHF (congestive heart failure), NYHA class II Code(s): I50.9 - HEART FAILURE, UNSPECIFIED (5) CVA (cerebral vascular accident) Code(s): I63.9 - CEREBRAL INFARCTION, UNSPECIFIED Qualifiers: CVA mechanism: unspecified Qualified Code(s): I63.9 - Cerebral infarction, unspecified (6) HTN (hypertension) Code(s): I10 - ESSENTIAL (PRIMARY) HYPERTENSION (7) Hypercholesterolemia Code(s): E78.00 - PURE HYPERCHOLESTEROLEMIA, UNSPECIFIED (8) Paroxysmal A-fib Code(s): I48.0 - PAROXYSMAL ATRIAL FIBRILLATION Assessment/Plan Possible Acute COPD exacerbation IV abtx. Steroid IV Pulmonary consult Cardio consult AM labs
[2019-09-16] MEDS: hydrALAZINE HCL 25 MG TABLET (FP) PO SCH (22:03)
[2019-09-16] MEDS: APIXABAN 2.5 MG TABLET PO SCH (22:03)
[2019-09-16] MEDS: ALBUTEROL SO4 0.083% IH SOL 2.5 MG/3 ML VIAL.NEB. NEB SCH (22:40)
[2019-09-16] MEDS ORDERED: FLU VACCINE QUAD 60 MCG/0.5 ML (MDV 19-20) IM ONE (23:16)
[2019-09-17] MEDS: ALBUTEROL SO4 0.083% IH SOL 2.5 MG/3 ML VIAL.NEB. NEB SCH ×6 (00:07→20:49)
[2019-09-17] MEDS ORDERED: PT OWN MED DRAWER 7, Y5N ONE ×2 (05:46→10:00)
[2019-09-17] MEDS ORDERED: FLU VACCINE QUAD 60 MCG/0.5 ML (MDV 19-20) IM ONE (06:00)
[2019-09-17 08:36] LABS: HEMOGLOBIN 11.8 GM/dL (10.7-15.3); MCH 29.2 pg (25.7-33.7); MCHC 33.7 g/dl (32.0-36.0); MEAN CELL VOLUME 86.6 fl (80-96); PLATELET COUNT 212 K/MM3 (134-434); RBC 4.04 M/mm3 (3.60-5.2); RDW 14.3 % (11.6-15.6); WHITE BLOOD COUNT 6.2 K/mm3 (4.0-10.0)
[2019-09-17 08:59] LABS: ALBUMIN 2.6 g/dl (3.4-5.0); BILIRUBIN,TOTAL 0.4 mg/dL (0.2-1); BLOOD UREA NITROGEN 22.9 mg/dL (7-18); CALCIUM 8.3 mg/dL (8.5-10.1); CREATININE 1.1 mg/dL (0.55-1.3); POTASSIUM 4.4 mmol/L (3.5-5.1)
[2019-09-17] MEDS ORDERED: DEXTROSE 5%-WATER - 50 ML IVPB ONE (10:00)
[2019-09-17] MEDS ORDERED: CITALOPRAM HYDROBROMIDE 10 MG TABLET PO SCH (10:00)
[2019-09-17] MEDS ORDERED: cefTRIAXone SODIUM 1 GM VIAL ONE (10:00)
[2019-09-17] MEDS: ASPIRIN 81 MG CHEWABLE TABLETS PO SCH (10:17)
[2019-09-17] MEDS: hydrALAZINE HCL 25 MG TABLET (FP) PO SCH ×3 (10:17→21:30)
[2019-09-17] MEDS: LOSARTAN POTASSIUM 50 MG TABLET (FP) PO SCH (10:17)
[2019-09-17] MEDS: APIXABAN 2.5 MG TABLET PO SCH ×2 (10:18→21:24)
[2019-09-17] MEDS: ROSUVASTATIN CA 10 MG TABLET (FP) PO SCH (10:18)
[2019-09-17] MEDS: CEFTRIAXONE 1 GM in DEXTROSE 5%-WATER - 50 ML IVPB SCH (10:18)
[2019-09-17] MEDS: FUROSEMIDE 20 MG TABLET (FP) PO SCH (10:18)
[2019-09-17] MEDS: methylPREDNISolone NA SUCC 40 MG/1 ML VIAL IVPUSH SCH (10:19)
[2019-09-17] MEDS: AZITHROMYCIN IVPB 500 MG/250 ML BAG IVPB SCH (11:19)
--- NOTE | 2019-09-17 12:40 | EKG ---
Test Reason : Blood Pressure : / mmHG Vent. Rate : 108 BPM Atrial Rate : 125 BPM P-R Int : 000 ms QRS Dur : 082 ms QT Int : 308 ms P-R-T Axes : 000 067 061 degrees QTc Int : 412 ms POOR DATA QUALITY, INTERPRETATION MAY BE ADVERSELY AFFECTED ATRIAL FIBRILLATION WITH RAPID VENTRICULAR RESPONSE WITH PREMATURE VENTRICULAR OR ABERRANTLY CONDUCTED COMPLEXES NONSPECIFIC ST AND T WAVE ABNORMALITY ABNORMAL ECG WHEN COMPARED WITH ECG OF 12-MAY-2019 09:52, T WAVE INVERSION NO LONGER EVIDENT IN INFERIOR LEADS NONSPECIFIC T WAVE ABNORMALITY NO LONGER EVIDENT IN ANTERIOR LEADS QT HAS SHORTENED Confirmed by REYNALDO SRINIVASAN, JUANA ([id number]) on 09/17/2019 12:40:24 PM Referred By: Confirmed By:JUANA JACOBS MD
--- NOTE | 2019-09-17 19:54 | PN ---
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 Illness: Pt still coughs, Pt w/o fever, chills, CP, palpitations, abd pain - Current Medication List Current Medications: Active Medications Albuterol Sulfate (Ventolin 0.083% Nebulizer Soln -) 1 amp NEB RQ4H [facility] Last Admin: 09/17/19 16:15 Dose: 1 amp Apixaban (Eliquis -) 2.5 mg PO BID [facility] Last Admin: 09/17/19 10:18 Dose: 2.5 mg Aspirin (Asa -) 81 mg PO DAILY [facility] Last Admin: 09/17/19 10:17 Dose: 81 mg Citalopram Hydrobromide (Celexa -) 10 mg PO DAILY [facility] Furosemide (Lasix -) 20 mg PO DAILY [facility] Last Admin: 09/17/19 10:18 Dose: 20 mg Hydralazine HCl (Apresoline -) 25 mg PO BID [facility] Last Admin: 09/17/19 10:17 Dose: 25 mg Azithromycin (Zithromax 500mg Ivpb (Pre-Docked)) 500 mg in 250 mls @ 250 mls/ hr IVPB DAILY [facility] Last Admin: 09/17/19 11:19 Dose: 250 mls/hr Ceftriaxone Sodium 1 gm/ (Dextrose) 50 mls @ 100 mls/hr IVPB DAILY [facility] Last Admin: 09/17/19 10:18 Dose: 100 mls/hr Losartan Potassium (Cozaar -) 100 mg PO DAILY [facility] Last Admin: 09/17/19 10:17 Dose: 100 mg Methylprednisolone Sodium Succinate (Solu-Medrol -) 40 mg IVPUSH DAILY [facility] Last Admin: 09/17/19 10:19 Dose: 40 mg Metoprolol Succinate (Toprol Xl -) 50 mg PO DAILY [facility] Last Admin: 09/17/19 10:18 Dose: 50 mg Rosuvastatin Calcium (Crestor -) 10 mg PO DAILY [facility] Last Admin: 09/17/19 10:18 Dose: 10 mg - Objective Vital Signs: Vital Signs Temperature 97.7 F 09/17/19 19:51 Pulse Rate 88 09/17/19 19:51 Respiratory Rate 20 09/17/19 19:51 Blood Pressure 131/80 09/17/19 19:51 O2 Sat by Pulse Oximetry (%) 96 09/16/19 22:25 Constitutional: Yes: No Distress, Calm Cardiovascular: Yes: Regular Rate and Rhythm, S1, S2 Respiratory: Yes: Regular, Rales, Rhonchi Gastrointestinal: Yes: Normal Bowel Sounds, Soft. No: Tenderness Edema: No Neurological: Yes: Alert, Oriented Labs: CBC, BMP 09/17/19 07:40 09/17/19 07:40 Problem List - Problems (1) Acute bronchitis Code(s): J20.9 - ACUTE BRONCHITIS, UNSPECIFIED Qualifiers: Bronchitis organism: unspecified organism Qualified Code(s): J20.9 - Acute bronchitis, unspecified (2) Wheezing Code(s): R06.2 - WHEEZING (3) UTI (urinary tract infection) Code(s): N39.0 - URINARY TRACT INFECTION, SITE NOT SPECIFIED Qualifiers: Urinary tract infection type: site unspecified (4) CHF (congestive heart failure), NYHA class II Code(s): I50.9 - HEART FAILURE, UNSPECIFIED (5) CVA (cerebral vascular accident) Code(s): I63.9 - CEREBRAL INFARCTION, UNSPECIFIED Qualifiers: CVA mechanism: unspecified Qualified Code(s): I63.9 - Cerebral infarction, unspecified (6) HTN (hypertension) Code(s): I10 - ESSENTIAL (PRIMARY) HYPERTENSION (7) Hypercholesterolemia Code(s): E78.00 - PURE HYPERCHOLESTEROLEMIA, UNSPECIFIED (8) Paroxysmal A-fib Code(s): I48.0 - PAROXYSMAL ATRIAL FIBRILLATION Assessment/Plan Possible Acute COPD exacerbation IV abtx. Steroid IV Pulmonary consult Cardio consult Chest CT scan AM labs
[2019-09-18] MEDS: ALBUTEROL SO4 0.083% IH SOL 2.5 MG/3 ML VIAL.NEB. NEB SCH ×3 (00:37→08:22)
[2019-09-18 08:19] LABS: HEMOGLOBIN 12.4 GM/dL (10.7-15.3); MCH 29.1 pg (25.7-33.7); MCHC 33.6 g/dl (32.0-36.0); MEAN CELL VOLUME 86.6 fl (80-96); MEAN PLT VOLUME 8.1 fl (7.5-11.1); PLATELET COUNT 230 K/MM3 (134-434); RBC 4.28 M/mm3 (3.60-5.2); RDW 14.4 % (11.6-15.6); WHITE BLOOD COUNT 16.5 K/mm3 (4.0-10.0)
[2019-09-18 08:47] LABS: ALBUMIN 2.8 g/dl (3.4-5.0); BILIRUBIN,TOTAL 0.5 mg/dL (0.2-1); BLOOD UREA NITROGEN 22.4 mg/dL (7-18); CALCIUM 8.6 mg/dL (8.5-10.1); POTASSIUM 4.3 mmol/L (3.5-5.1); TOT PROT 6.1 g/dl (6.4-8.2)
--- NOTE | 2019-09-18 09:27 | PN ---
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, Physician - Current Medication List Current Medications: Active Medications Albuterol Sulfate (Ventolin 0.083% Nebulizer Soln -) 1 amp NEB RQ4H [facility] Last Admin: 09/18/19 08:22 Dose: 1 amp Apixaban (Eliquis -) 2.5 mg PO BID [facility] Last Admin: 09/17/19 21:24 Dose: 2.5 mg Aspirin (Asa -) 81 mg PO DAILY [facility] Last Admin: 09/17/19 10:17 Dose: 81 mg Citalopram Hydrobromide (Celexa -) 10 mg PO DAILY [facility] Furosemide (Lasix -) 20 mg PO DAILY [facility] Last Admin: 09/17/19 10:18 Dose: 20 mg Hydralazine HCl (Apresoline -) 25 mg PO BID [facility] Last Admin: 09/17/19 21:30 Dose: Not Given Azithromycin (Zithromax 500mg Ivpb (Pre-Docked)) 500 mg in 250 mls @ 250 mls/ hr IVPB DAILY [facility] Last Admin: 09/17/19 11:19 Dose: 250 mls/hr Ceftriaxone Sodium 1 gm/ (Dextrose) 50 mls @ 100 mls/hr IVPB DAILY [facility] Last Admin: 09/17/19 10:18 Dose: 100 mls/hr Losartan Potassium (Cozaar -) 100 mg PO DAILY [facility] Last Admin: 09/17/19 10:17 Dose: 100 mg Methylprednisolone Sodium Succinate (Solu-Medrol -) 40 mg IVPUSH DAILY [facility] Last Admin: 09/17/19 10:19 Dose: 40 mg Metoprolol Succinate (Toprol Xl -) 50 mg PO DAILY [facility] Last Admin: 09/17/19 10:18 Dose: 50 mg Rosuvastatin Calcium (Crestor -) 10 mg PO DAILY [facility] Last Admin: 09/17/19 10:18 Dose: 10 mg - Objective Vital Signs: Vital Signs Temperature 97.8 F 09/18/19 04:00 Pulse Rate 86 09/18/19 04:00 Respiratory Rate 20 09/18/19 04:00 Blood Pressure 177/81 H 09/18/19 04:00 O2 Sat by Pulse Oximetry (%) 96 09/17/19 22:00 Labs: CBC, BMP 09/18/19 07:15 09/18/19 07:15
[2019-09-18] MEDS ORDERED: PT OWN MED DRAWER 7, Y5N ONE (10:01)
[2019-09-18] MEDS ORDERED: cefTRIAXone SODIUM 1 GM VIAL ONE (10:01)
[2019-09-18] MEDS ORDERED: DEXTROSE 5%-WATER - 50 ML IVPB ONE (10:01)
[2019-09-18] MEDS: hydrALAZINE HCL 25 MG TABLET (FP) PO SCH ×3 (10:05→21:46)
[2019-09-18] MEDS: ROSUVASTATIN CA 10 MG TABLET (FP) PO SCH (10:06)
[2019-09-18] MEDS: LOSARTAN POTASSIUM 50 MG TABLET (FP) PO SCH (10:06)
[2019-09-18] MEDS: ASPIRIN 81 MG CHEWABLE TABLETS PO SCH (10:06)
[2019-09-18] MEDS: APIXABAN 2.5 MG TABLET PO SCH ×2 (10:06→21:43)
[2019-09-18] MEDS: FUROSEMIDE 20 MG TABLET (FP) PO SCH (10:06)
[2019-09-18] MEDS: CEFTRIAXONE 1 GM in DEXTROSE 5%-WATER - 50 ML IVPB SCH (10:07)
[2019-09-18] MEDS: methylPREDNISolone NA SUCC 40 MG/1 ML VIAL IVPUSH SCH ×2 (10:08→17:41)
[2019-09-18] MEDS ORDERED: ALBUTEROL SO4 0.083% IH SOL 2.5 MG/3 ML VIAL.NEB. NEB PRN (10:31)
--- NOTE | 2019-09-18 10:32 | CON.PULM ---
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 No fevers, chills or sweats. The cough is nonproductive and she has been wheezing. Reports sick contacts in her facility. She is a former smoker. - History Source History Provided By: Patient, Medical Record Limitations to Obtaining History: Poor Historian - Past Medical History EXP[employer]ION [employer]EL[employer] HAND: Yes: CVA Cardio/Vascular: Yes: AFIB (on AC), CHF, Deep Vein Thrombosis, HTN, Hyperlipdemia Renal/: Yes: Renal Calculi (and sepsis) - Past Surgical History Past Surgical History: Yes: Hysterectomy (and abdominal hernia) - Alcohol/Substance Use Hx Alcohol Use: No - Smoking History Smoking history: Former smoker (for many years) Have you smoked in the past 12 months: No If you are a former smoker, when did you quit?: 40yrs Home Medications - Allergies Allergies/Adverse Reactions: Allergies Allergy/AdvReac Type Severity Reaction Status Date / Time sulfamethoxazole Allergy Verified 09/16/19 14:19 [From Bactrim] trimethoprim [From Bactrim] Allergy Verified 09/16/19 14:19 - Home Medications Home Medications: Ambulatory Orders Apixaban [Eliquis -] 2.5 mg PO BID #60 tablet 05/23/19 Aspirin [ASA -] 81 mg PO DAILY #30 tab.chew 05/23/19 Citalopram Hydrobromide [Celexa -] 10 mg PO DAILY #30 tablet 05/23/19 Furosemide [Lasix -] 20 mg PO DAILY #30 tablet 05/23/19 Losartan Potassium [Cozaar -] 100 mg PO DAILY 30 Days #30 tablet 05/23/19 Metoprolol Succinate [Toprol Xl -] 50 mg PO DAILY #30 tablet 05/23/19 Rosuvastatin Calcium [Crestor] 10 mg PO DAILY #30 tablet 05/23/19 hydrALAZINE HCL [Apresoline -] 25 mg PO BID MDD 2 09/16/19 Review of Systems - Review of Systems Constitutional: reports: Weakness. denies: Chills, Fever Eyes: denies: Recent Change in Vision HENT: denies: Nasal Congestion, Throat Pain Neck: denies: Stiffness, Tenderness Cardiovascular: reports: Shortness of Breath. denies: Chest Pain, Palpitations Respiratory: reports: Cough, SOB, Wheezing. denies: Hemoptysis Gastrointestinal: denies: Abdominal Pain, Nausea, Vomiting Genitourinary: denies: Dysuria, Hematuria Neurological: denies: Dizziness, Headache Endocrine: denies: Unexplained Weight Loss Physical Exam Vital Sings: Vital Signs Temperature 97.8 F 09/18/19 04:00 Pulse Rate 86 09/18/19 04:00 Respiratory Rate 20 09/18/19 04:00 Blood Pressure 177/81 H 09/18/19 04:00 O2 Sat by Pulse Oximetry (%) 96 09/17/19 22:00 Constitutional: Yes: Calm Eyes: Yes: Conjunctiva Clear, EOM Intact HENT: Yes: Atraumatic, Normocephalic Neck: Yes: Supple, Trachea Midline Cardiovascular: Yes: Regular Rate and Rhythm Respiratory: Yes: Rhonchi (scattered ) ...Clubbing: No Gastrointestinal: Yes: Normal Bowel Sounds, Soft. No: Tenderness Edema: No Neurological: Yes: Alert Labs: CBC, BMP 09/18/19 07:15 09/18/19 07:15 Imaging - Results Cat Scan: Image Reviewed (patchy right sided infiltrates, emphysematous changes) Problem List - Problems (1) COPD with acute exacerbation Code(s): J44.1 - CHRONIC OBSTRUCTIVE PULMONARY DISEASE W (ACUTE) EXACERBATION Assessment/Plan Acute COPD Exacerbation Pneumonia UTI Atrial Fibrillation h/o CVA HTN Hyperlipidemia - agree with antibiotic coverage - f/u cultures - urinary antigens - will increase medrol - inhaled bronchodilators - O2 to keep SpO2 >90% - rate control - continue anticoagulation Thank you for this consult Osvaldo Washington MD
[2019-09-18] MEDS: AZITHROMYCIN IVPB 500 MG/250 ML BAG IVPB SCH (10:53)
--- NOTE | 2019-09-18 11:14 | PN ---
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 history of o hypertension, permanent atrial fibrillation, status post cerebrovascular accident and hypothyroidism. She still has a residua coughl, no shortness of breath. No history of chest pain or discomfort. Active Medications Albuterol Sulfate (Ventolin 0.083% Nebulizer Soln -) 1 amp NEB RQ4H PRN PRN Reason: SHORT OF BREATH/WHEEZING Albuterol/Ipratropium (Duoneb -) 1 amp NEB RQID [facility] Last Admin: 09/18/19 20:00 Dose: 1 amp Apixaban (Eliquis -) 2.5 mg PO BID [facility] Last Admin: 09/18/19 21:43 Dose: 2.5 mg Aspirin (Asa -) 81 mg PO DAILY [facility] Last Admin: 09/18/19 10:06 Dose: 81 mg Citalopram Hydrobromide (Celexa -) 10 mg PO DAILY [facility] Furosemide (Lasix -) 20 mg PO DAILY [facility] Last Admin: 09/18/19 10:06 Dose: 20 mg Hydralazine HCl (Apresoline -) 25 mg PO BID [facility] Last Admin: 09/18/19 21:46 Dose: 25 mg Azithromycin (Zithromax 500mg Ivpb (Pre-Docked)) 500 mg in 250 mls @ 250 mls/ hr IVPB DAILY [facility] Last Admin: 09/18/19 10:53 Dose: 250 mls/hr Ceftriaxone Sodium 1 gm/ (Dextrose) 50 mls @ 100 mls/hr IVPB DAILY [facility] Last Admin: 09/18/19 10:07 Dose: 100 mls/hr Losartan Potassium (Cozaar -) 100 mg PO DAILY [facility] Last Admin: 09/18/19 10:06 Dose: 100 mg Methylprednisolone Sodium Succinate (Solu-Medrol -) 40 mg IVPUSH Q8H-IV [facility] Last Admin: 09/18/19 17:41 Dose: 40 mg Metoprolol Succinate (Toprol Xl -) 50 mg PO DAILY [facility] Last Admin: 09/18/19 10:06 Dose: 50 mg Rosuvastatin Calcium (Crestor -) 10 mg PO DAILY [facility] Last Admin: 09/18/19 10:06 Dose: 10 mg Last Vital Signs Temp Pulse Resp BP Pulse Ox 98.0 F 82 20 132/82 96 09/18/19 17:11 09/18/19 17:11 09/18/19 17:11 09/18/19 17:11 09/17/19 22:00 Neck:supple, no JVD, carotids are 2+, upstrokes were normal. Heart: S1 was variable, S2 was normal. grade 2/6 DEMARIO heard at the right intercostal space, no diastolic murmur or gallops were heard. Lungs: Scattered expiratory wheezing. Abdomen: Soft, nontender, no hepatosplenomegaly, no palpable masses. Umbilical hernia and well-healed surgical scar. Extremities: No calf tenderness or dependent edema. CBC, BMP 09/18/19 07:15 09/18/19 07:15 Impression: 1.acute anastomotic bronchi 2. Hypertension. 3. Permanent atrial fibrillation. 4. Hypothyroidism. 5. COPD. 6. Status post CVA. 7. Elevated blood sugar. 8. Hypercholesterolemia. Recommendations: 1. Hemoglobin A1c. 2. Continue current cardiac medication. 3. Increase ambulation. 4. Physical therapy. Kale Quiñones MD.
[2019-09-18] MEDS: ALBUTEROL SO4 2.5/IPRATROPIUM 0.5 INH SOL 3 ML VIAL.NEB. NEB SCH ×3 (12:20→20:00)
--- NOTE | 2019-09-18 21:21 | PN ---
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, Physician Chief Complaint: in bed awake alert NAD coughing no CP SOB afebrile consults meds appreciated - Current Medication List Current Medications: Active Medications Albuterol Sulfate (Ventolin 0.083% Nebulizer Soln -) 1 amp NEB RQ4H PRN PRN Reason: SHORT OF BREATH/WHEEZING Albuterol/Ipratropium (Duoneb -) 1 amp NEB RQID [facility] Last Admin: 09/18/19 15:09 Dose: 1 amp Apixaban (Eliquis -) 2.5 mg PO BID [facility] Last Admin: 09/18/19 10:06 Dose: 2.5 mg Aspirin (Asa -) 81 mg PO DAILY [facility] Last Admin: 09/18/19 10:06 Dose: 81 mg Citalopram Hydrobromide (Celexa -) 10 mg PO DAILY [facility] Furosemide (Lasix -) 20 mg PO DAILY [facility] Last Admin: 09/18/19 10:06 Dose: 20 mg Hydralazine HCl (Apresoline -) 25 mg PO BID [facility] Last Admin: 09/18/19 10:05 Dose: 25 mg Azithromycin (Zithromax 500mg Ivpb (Pre-Docked)) 500 mg in 250 mls @ 250 mls/ hr IVPB DAILY [facility] Last Admin: 09/18/19 10:53 Dose: 250 mls/hr Ceftriaxone Sodium 1 gm/ (Dextrose) 50 mls @ 100 mls/hr IVPB DAILY [facility] Last Admin: 09/18/19 10:07 Dose: 100 mls/hr Losartan Potassium (Cozaar -) 100 mg PO DAILY [facility] Last Admin: 09/18/19 10:06 Dose: 100 mg Methylprednisolone Sodium Succinate (Solu-Medrol -) 40 mg IVPUSH Q8H-IV [facility] Last Admin: 09/18/19 17:41 Dose: 40 mg Metoprolol Succinate (Toprol Xl -) 50 mg PO DAILY [facility] Last Admin: 09/18/19 10:06 Dose: 50 mg Rosuvastatin Calcium (Crestor -) 10 mg PO DAILY [facility] Last Admin: 09/18/19 10:06 Dose: 10 mg - Objective Vital Signs: Vital Signs Temperature 98.0 F 09/18/19 17:11 Pulse Rate 82 09/18/19 17:11 Respiratory Rate 20 09/18/19 17:11 Blood Pressure 132/82 09/18/19 17:11 O2 Sat by Pulse Oximetry (%) 96 09/17/19 22:00 Constitutional: Yes: No Distress, Calm Eyes: Yes: Conjunctiva Clear HENT: Yes: Atraumatic Neck: Yes: Supple Cardiovascular: No: Regular Rate and Rhythm Respiratory: Yes: Diminished Gastrointestinal: Yes: Soft. No: Tenderness Genitourinary: No: Hematuria Musculoskeletal: No: Joint Stiffness, Joint Swelling Extremities: No: Cold, Cool Edema: No Integumentary: No: Rash, Venous Stasis Changes Neurological: Yes: Alert ...Motor Strength: WNL Psychiatric: Yes: Alert. No: Agitated, Suicidal Ideation Labs: CBC, BMP 09/18/19 07:15 09/18/19 07:15 - ....Imaging Other: Report Reviewed Assessment/Plan 84yo F with PMH of Afib (Eliquis), CVA x3 (most recent 08/2017), DVT, HTN, HLD from [facility] who presents with 1 week of cough productive of white phlegm and some shortness of breath, wheezing. Dx PNA and UTI IV ATB f/u cultures and labs falls decubs PFX cardiology f/u d/w pt and staff
[2019-09-19] MEDS: methylPREDNISolone NA SUCC 40 MG/1 ML VIAL IVPUSH SCH ×2 (02:12→11:08)
--- NOTE | 2019-09-19 06:12 | PN ---
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, Physician Chief Complaint: in bed awake alert NAD feels better - Current Medication List Current Medications: Active Medications Albuterol Sulfate (Ventolin 0.083% Nebulizer Soln -) 1 amp NEB RQ4H PRN PRN Reason: SHORT OF BREATH/WHEEZING Albuterol/Ipratropium (Duoneb -) 1 amp NEB RQID [facility] Last Admin: 09/18/19 20:00 Dose: 1 amp Apixaban (Eliquis -) 2.5 mg PO BID [facility] Last Admin: 09/18/19 21:43 Dose: 2.5 mg Aspirin (Asa -) 81 mg PO DAILY [facility] Last Admin: 09/18/19 10:06 Dose: 81 mg Citalopram Hydrobromide (Celexa -) 10 mg PO DAILY [facility] Furosemide (Lasix -) 20 mg PO DAILY [facility] Last Admin: 09/18/19 10:06 Dose: 20 mg Hydralazine HCl (Apresoline -) 25 mg PO BID [facility] Last Admin: 09/18/19 21:46 Dose: 25 mg Azithromycin (Zithromax 500mg Ivpb (Pre-Docked)) 500 mg in 250 mls @ 250 mls/ hr IVPB DAILY [facility] Last Admin: 09/18/19 10:53 Dose: 250 mls/hr Ceftriaxone Sodium 1 gm/ (Dextrose) 50 mls @ 100 mls/hr IVPB DAILY [facility] Last Admin: 09/18/19 10:07 Dose: 100 mls/hr Losartan Potassium (Cozaar -) 100 mg PO DAILY [facility] Last Admin: 09/18/19 10:06 Dose: 100 mg Methylprednisolone Sodium Succinate (Solu-Medrol -) 40 mg IVPUSH Q8H-IV [facility] Last Admin: 09/19/19 02:12 Dose: 40 mg Metoprolol Succinate (Toprol Xl -) 50 mg PO DAILY [facility] Last Admin: 09/18/19 10:06 Dose: 50 mg Rosuvastatin Calcium (Crestor -) 10 mg PO DAILY [facility] Last Admin: 09/18/19 10:06 Dose: 10 mg - Objective Vital Signs: Vital Signs Temperature 97.6 F 09/18/19 23:00 Pulse Rate 102 H 09/18/19 23:00 Respiratory Rate 20 09/18/19 23:00 Blood Pressure 148/76 09/18/19 23:00 O2 Sat by Pulse Oximetry (%) 96 09/17/19 22:00 Constitutional: Yes: No Distress, Calm Eyes: Yes: Conjunctiva Clear HENT: Yes: Atraumatic Neck: Yes: Supple Cardiovascular: Yes: Regular Rate and Rhythm Respiratory: Yes: Diminished Gastrointestinal: Yes: Soft. No: Tenderness Genitourinary: No: Hematuria Musculoskeletal: No: Joint Stiffness, Joint Swelling Extremities: No: Cold, Cool, Cyanosis Edema: No Integumentary: No: Pressure Ulcer, Rash, Venous Stasis Changes Neurological: Yes: Alert ...Motor Strength: WNL Psychiatric: Yes: Alert. No: Agitated Labs: CBC, BMP 09/18/19 07:15 09/18/19 07:15 - ....Imaging Other: Report Reviewed Assessment/Plan 84yo F with PMH of Afib (Eliquis), CVA x3 (most recent 08/2017), DVT, HTN, HLD from [facility] [place] who presents with 1 week of cough productive of white phlegm and some shortness of breath, wheezing. Dx PNA and UTI IV ATB f/u cultures and labs falls decubs PFX cardiology f/u d/w pt and staff
[2019-09-19 08:21] LABS: BASO % 0.1 % (0-2.0); HEMATOCRIT 35.1 % (32.4-45.2); HEMOGLOBIN 11.9 GM/dL (10.7-15.3); LYMPH % 5.8 % (8-40); MCH 29.2 pg (25.7-33.7); MCHC 33.8 g/dl (32.0-36.0); MEAN CELL VOLUME 86.4 fl (80-96); MEAN PLT VOLUME 8.5 fl (7.5-11.1); MONO % 7.6 % (3.8-10.2); NEUT % 86.5 % (42.8-82.8); PLATELET COUNT 204 K/MM3 (134-434); RBC 4.07 M/mm3 (3.60-5.2); RDW 14.3 % (11.6-15.6); WHITE BLOOD COUNT 9.4 K/mm3 (4.0-10.0)
[2019-09-19] MEDS: ALBUTEROL SO4 2.5/IPRATROPIUM 0.5 INH SOL 3 ML VIAL.NEB. NEB SCH ×4 (08:33→20:30)
[2019-09-19 08:39] LABS: ALBUMIN 2.6 g/dl (3.4-5.0); BILIRUBIN,TOTAL 0.8 mg/dL (0.2-1); BLOOD UREA NITROGEN 24.5 mg/dL (7-18); CALCIUM 8.3 mg/dL (8.5-10.1); CREATININE 0.9 mg/dL (0.55-1.3); TOT PROT 5.8 g/dl (6.4-8.2)
[2019-09-19] MEDS ORDERED: cefTRIAXone SODIUM 1 GM VIAL ONE (09:10)
[2019-09-19] MEDS ORDERED: PT OWN MED DRAWER 7, Y5N ONE (09:10)
[2019-09-19] MEDS ORDERED: DEXTROSE 5%-WATER - 50 ML IVPB ONE (09:10)
[2019-09-19] MEDS: LOSARTAN POTASSIUM 50 MG TABLET (FP) PO SCH (11:06)
[2019-09-19] MEDS: ASPIRIN 81 MG CHEWABLE TABLETS PO SCH (11:06)
[2019-09-19] MEDS: hydrALAZINE HCL 25 MG TABLET (FP) PO SCH ×2 (11:06→21:07)
[2019-09-19] MEDS: ROSUVASTATIN CA 10 MG TABLET (FP) PO SCH (11:06)
[2019-09-19] MEDS: FUROSEMIDE 20 MG TABLET (FP) PO SCH (11:07)
[2019-09-19] MEDS: APIXABAN 2.5 MG TABLET PO SCH ×2 (11:07→21:07)
[2019-09-19] MEDS: CEFTRIAXONE 1 GM in DEXTROSE 5%-WATER - 50 ML IVPB SCH (11:08)
[2019-09-19] MEDS: AZITHROMYCIN IVPB 500 MG/250 ML BAG IVPB SCH (11:09)
--- NOTE | 2019-09-19 11:18 | PN ---
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 (short form) - Note 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: PULMONARY AWAKE/ALERT/ASKING TO GO HOME VSS/AFEBRILE Constitutional: Yes: Calm Eyes: Yes: Conjunctiva Clear, EOM Intact HENT: Yes: Atraumatic, Normocephalic Neck: Yes: Supple, Trachea Midline Cardiovascular: Yes: Regular Rate and Rhythm Respiratory: Yes: Rhonchi (scattered ) ...Clubbing: No Gastrointestinal: Yes: Normal Bowel Sounds, Soft. No: Tenderness Edema: No Neurological: Yes: Alert Labs/notes/images/micro/meds noted Cat Scan: Image Reviewed (patchy right sided infiltrates, emphysematous changes) Acute COPD Exacerbation Pneumonia UTI Atrial Fibrillation h/o CVA HTN Hyperlipidemia - antibiotic coverage - urine culture positive - urinary antigens are negative - change medrol in am to prednisone - inhaled bronchodilators - O2 to keep SpO2 >90% - rate control - continue anticoagulation Nellie HENSON MD
--- NOTE | 2019-09-19 19:33 | PN ---
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 history of o hypertension, permanent atrial fibrillation, status post cerebrovascular accident and hypothyroidism. Minimal cough, no shortness of breath reported. No history of chest pain or discomfort. Active Medications Generic Name Dose Route Start Last Admin Trade Name Freq PRN Reason Stop Dose Admin Albuterol Sulfate 1 amp 09/18/19 10:31 Ventolin 0.083% Nebulizer Soln - NEB RQ4H PRN SHORT OF BREATH/WHEEZING Albuterol/Ipratropium 1 amp 09/18/19 12:00 09/19/19 15:29 Duoneb - NEB 1 amp RQID SHAHRAM Administration Apixaban 2.5 mg 09/16/19 22:00 09/19/19 11:07 Eliquis - PO 2.5 mg BID SHAHRAM Administration Aspirin 81 mg 09/17/19 10:00 09/19/19 11:06 Asa - PO 81 mg DAILY SHAHRAM Administration Citalopram Hydrobromide 10 mg 09/17/19 10:00 Celexa - PO DAILY SHAHRAM Furosemide 20 mg 09/17/19 10:00 09/19/19 11:07 Lasix - PO 20 mg DAILY SHAHRAM Administration Hydralazine HCl 25 mg 09/16/19 22:00 09/19/19 11:06 Apresoline - PO 25 mg BID SHAHRAM Administration Azithromycin 500 mg in 250 mls @ 250 mls/hr 09/17/19 10:00 09/19/19 11:09 Zithromax 500mg Ivpb (Pre-Docked) IVPB 250 mls/hr DAILY SHAHRAM Administration Ceftriaxone Sodium 1 gm/ 50 mls @ 100 mls/hr 09/17/19 10:00 09/19/19 11:08 Dextrose IVPB 100 mls/hr DAILY SHAHRAM Administration Losartan Potassium 100 mg 09/17/19 10:00 09/19/19 11:06 Cozaar - PO 100 mg DAILY SHAHRAM Administration Metoprolol Succinate 50 mg 09/17/19 10:00 09/19/19 11:08 Toprol Xl - PO 50 mg DAILY SHAHRAM Administration Prednisone 20 mg 09/20/19 10:00 Deltasone - PO DAILY SHAHRAM Rosuvastatin Calcium 10 mg 09/17/19 10:00 09/19/19 11:06 Crestor - PO 10 mg DAILY SHAHRAM Administration Last Vital Signs Temp Pulse Resp BP Pulse Ox 98 F 98 irregular. 20 106/43 L 99 09/19/19 14:51 09/19/19 14:51 09/19/19 14:51 09/19/19 14:51 09/19/19 09:00 Neck:supple, no JVD, carotids are 2+, upstrokes were normal. Heart: S1 was variable, S2 was normal. grade 2/6 DEMARIO heard at the right intercostal space, no diastolic murmur or gallops were heard. Lungs: Scattered expiratory wheezing. Abdomen: Soft, nontender, no hepatosplenomegaly, no palpable masses. Umbilical hernia and well-healed surgical scar. Extremities: No calf tenderness or dependent edema. Impression: 1. Acute asthmatic bronchitis, resolving. 2. Hypertension, HVCD. 3. Permanent atrial fibrillation with mostly controlled ventricular response. 4. Hypothyroidism. 5. Suspect chronic obstru 6. Status post CVA. 7. Elevated blood sugar. 8. Hypercholesterolemia Recommendations: 1. Continue current cardiac medication. 2. Increase ambulation. 3. Discharge when medically stable. 4. Physical therapy. Kale Quiñones MD.
[2019-09-20] MEDS: ALBUTEROL SO4 2.5/IPRATROPIUM 0.5 INH SOL 3 ML VIAL.NEB. NEB SCH ×4 (07:36→21:32)
[2019-09-20] MEDS ORDERED: cefTRIAXone SODIUM 1 GM VIAL ONE (09:06)
[2019-09-20] MEDS ORDERED: DEXTROSE 5%-WATER - 50 ML IVPB ONE (09:06)
[2019-09-20] MEDS: CEFTRIAXONE 1 GM in DEXTROSE 5%-WATER - 50 ML IVPB SCH (09:15)
[2019-09-20] MEDS: ROSUVASTATIN CA 10 MG TABLET (FP) PO SCH (09:15)
[2019-09-20] MEDS: APIXABAN 2.5 MG TABLET PO SCH ×2 (09:18→21:39)
[2019-09-20] MEDS: ASPIRIN 81 MG CHEWABLE TABLETS PO SCH (09:18)
[2019-09-20] MEDS: FUROSEMIDE 20 MG TABLET (FP) PO SCH (09:18)
[2019-09-20] MEDS: hydrALAZINE HCL 25 MG TABLET (FP) PO SCH ×2 (09:18→21:39)
[2019-09-20] MEDS: predniSONE 20 MG TABLET (UD) PO SCH (09:19)
[2019-09-20] MEDS: LOSARTAN POTASSIUM 50 MG TABLET (FP) PO SCH (09:19)
[2019-09-20] MEDS: AZITHROMYCIN IVPB 500 MG/250 ML BAG IVPB SCH (09:21)
--- NOTE | 2019-09-20 13:42 | PN ---
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 Illness: Pt w/o fever, chills, cough, CP, palpitations, abd pain - Current Medication List Current Medications: Active Medications Albuterol Sulfate (Ventolin 0.083% Nebulizer Soln -) 1 amp NEB RQ4H PRN PRN Reason: SHORT OF BREATH/WHEEZING Albuterol/Ipratropium (Duoneb -) 1 amp NEB RQID [facility] Last Admin: 09/20/19 12:00 Dose: 1 amp Apixaban (Eliquis -) 2.5 mg PO BID [facility] Last Admin: 09/20/19 09:18 Dose: 2.5 mg Aspirin (Asa -) 81 mg PO DAILY [facility] Last Admin: 09/20/19 09:18 Dose: 81 mg Citalopram Hydrobromide (Celexa -) 10 mg PO DAILY [facility] Furosemide (Lasix -) 20 mg PO DAILY [facility] Last Admin: 09/20/19 09:18 Dose: 20 mg Hydralazine HCl (Apresoline -) 25 mg PO BID [facility] Last Admin: 09/20/19 09:18 Dose: 25 mg Azithromycin (Zithromax 500mg Ivpb (Pre-Docked)) 500 mg in 250 mls @ 250 mls/ hr IVPB DAILY [facility] Last Admin: 09/20/19 09:21 Dose: 250 mls/hr Ceftriaxone Sodium 1 gm/ (Dextrose) 50 mls @ 100 mls/hr IVPB DAILY [facility] Last Admin: 09/20/19 09:15 Dose: 100 mls/hr Losartan Potassium (Cozaar -) 100 mg PO DAILY [facility] Last Admin: 09/20/19 09:19 Dose: 100 mg Metoprolol Succinate (Toprol Xl -) 50 mg PO DAILY [facility] Last Admin: 09/20/19 09:18 Dose: 50 mg Prednisone (Deltasone -) 20 mg PO DAILY [facility] Last Admin: 09/20/19 09:19 Dose: 20 mg Rosuvastatin Calcium (Crestor -) 10 mg PO DAILY [facility] Last Admin: 09/20/19 09:15 Dose: 10 mg - Objective Vital Signs: Vital Signs Temperature 98.1 F 09/19/19 19:37 Pulse Rate 106 H 09/19/19 19:37 Respiratory Rate 20 09/19/19 20:03 Blood Pressure 128/68 09/19/19 19:37 O2 Sat by Pulse Oximetry (%) 99 09/19/19 09:00 Constitutional: Yes: No Distress, Calm Cardiovascular: Yes: Regular Rate and Rhythm, S1, S2 Respiratory: Yes: Regular, Rhonchi (with deep inspiration, scattered) Gastrointestinal: Yes: Normal Bowel Sounds, Soft. No: Palpable Mass, Tenderness Edema: No Neurological: Yes: Alert, Oriented Labs: CBC, BMP 09/19/19 07:10 09/19/19 07:10 Problem List - Problems (1) Acute bronchitis Code(s): J20.9 - ACUTE BRONCHITIS, UNSPECIFIED Qualifiers: Bronchitis organism: unspecified organism Qualified Code(s): J20.9 - Acute bronchitis, unspecified (2) Wheezing Code(s): R06.2 - WHEEZING (3) UTI (urinary tract infection) Code(s): N39.0 - URINARY TRACT INFECTION, SITE NOT SPECIFIED Qualifiers: Urinary tract infection type: site unspecified (4) CHF (congestive heart failure), NYHA class II Code(s): I50.9 - HEART FAILURE, UNSPECIFIED (5) CVA (cerebral vascular accident) Code(s): I63.9 - CEREBRAL INFARCTION, UNSPECIFIED Qualifiers: CVA mechanism: unspecified Qualified Code(s): I63.9 - Cerebral infarction, unspecified (6) HTN (hypertension) Code(s): I10 - ESSENTIAL (PRIMARY) HYPERTENSION (7) Hypercholesterolemia Code(s): E78.00 - PURE HYPERCHOLESTEROLEMIA, UNSPECIFIED (8) Paroxysmal A-fib Code(s): I48.0 - PAROXYSMAL ATRIAL FIBRILLATION (9) Pneumonia Code(s): J18.9 - PNEUMONIA, UNSPECIFIED ORGANISM Qualifiers: Pneumonia type: due to unspecified organism Laterality: left Lung location: lower lobe of lung Assessment/Plan IV abtx. Steroids Pulmonary, Cardio consults are appreciated AM labs
--- NOTE | 2019-09-20 14:42 | PN ---
Progress Note (short form) - Note Progress Note: PULMONARY Denies shortness of breath, cough or wheezing. Vital Signs Period Temp Pulse Resp BP Sys/Espinoza Pulse Ox Last 24 Hr 97.4 F-98.1 F 92-114 19-20 106-152/43-68 Gen: NAD at rest Heart: RRR Lung: decreased breath sounds at the bases Abd: soft, nontender Ext: no edema CBC, BMP 09/19/19 07:10 09/19/19 07:10 Active Medications Albuterol Sulfate (Ventolin 0.083% Nebulizer Soln -) 1 amp NEB RQ4H PRN PRN Reason: SHORT OF BREATH/WHEEZING Albuterol/Ipratropium (Duoneb -) 1 amp NEB RQID [facility] Last Admin: 09/20/19 12:00 Dose: 1 amp Apixaban (Eliquis -) 2.5 mg PO BID [facility] Last Admin: 09/20/19 09:18 Dose: 2.5 mg Aspirin (Asa -) 81 mg PO DAILY [facility] Last Admin: 09/20/19 09:18 Dose: 81 mg Citalopram Hydrobromide (Celexa -) 10 mg PO DAILY [facility] Furosemide (Lasix -) 20 mg PO DAILY [facility] Last Admin: 09/20/19 09:18 Dose: 20 mg Hydralazine HCl (Apresoline -) 25 mg PO BID [facility] Last Admin: 09/20/19 09:18 Dose: 25 mg Azithromycin (Zithromax 500mg Ivpb (Pre-Docked)) 500 mg in 250 mls @ 250 mls/ hr IVPB DAILY [facility] Last Admin: 09/20/19 09:21 Dose: 250 mls/hr Ceftriaxone Sodium 1 gm/ (Dextrose) 50 mls @ 100 mls/hr IVPB DAILY [facility] Last Admin: 09/20/19 09:15 Dose: 100 mls/hr Losartan Potassium (Cozaar -) 100 mg PO DAILY [facility] Last Admin: 09/20/19 09:19 Dose: 100 mg Metoprolol Succinate (Toprol Xl -) 50 mg PO DAILY [facility] Last Admin: 09/20/19 09:18 Dose: 50 mg Prednisone (Deltasone -) 20 mg PO DAILY [facility] Last Admin: 09/20/19 09:19 Dose: 20 mg Rosuvastatin Calcium (Crestor -) 10 mg PO DAILY [facility] Last Admin: 09/20/19 09:15 Dose: 10 mg A/P Acute COPD Exacerbation Pneumonia UTI Atrial Fibrillation h/o CVA HTN Hyperlipidemia - continue antibiotics - prednisone taper - inhaled bronchodilators - O2 to keep SpO2 >90% - rate control - continue anticoagulation Problem List - Problems (1) COPD with acute exacerbation Code(s): J44.1 - CHRONIC OBSTRUCTIVE PULMONARY DISEASE W (ACUTE) EXACERBATION
[2019-09-21] MEDS: ALBUTEROL SO4 2.5/IPRATROPIUM 0.5 INH SOL 3 ML VIAL.NEB. NEB SCH ×4 (07:34→20:39)
[2019-09-21 08:32] LABS: HEMATOCRIT 37.2 % (32.4-45.2); HEMOGLOBIN 12.3 GM/dL (10.7-15.3); MCH 28.6 pg (25.7-33.7); MEAN CELL VOLUME 86.9 fl (80-96); MEAN PLT VOLUME 8.9 fl (7.5-11.1); PLATELET COUNT 228 K/MM3 (134-434); RBC 4.28 M/mm3 (3.60-5.2); RDW 14.4 % (11.6-15.6); WHITE BLOOD COUNT 14.3 K/mm3 (4.0-10.0)
[2019-09-21 09:00] LABS: BLOOD UREA NITROGEN 26.4 mg/dL (7-18); CALCIUM 7.9 mg/dL (8.5-10.1); CREATININE 0.9 mg/dL (0.55-1.3); POTASSIUM 4.4 mmol/L (3.5-5.1)
[2019-09-21] MEDS ORDERED: cefTRIAXone SODIUM 1 GM VIAL ONE (09:11)
[2019-09-21] MEDS ORDERED: DEXTROSE 5%-WATER - 50 ML IVPB ONE (09:12)
[2019-09-21] MEDS: LOSARTAN POTASSIUM 50 MG TABLET (FP) PO SCH (09:19)
[2019-09-21] MEDS: ROSUVASTATIN CA 10 MG TABLET (FP) PO SCH (09:19)
[2019-09-21] MEDS: hydrALAZINE HCL 25 MG TABLET (FP) PO SCH ×2 (09:19→21:41)
[2019-09-21] MEDS: FUROSEMIDE 20 MG TABLET (FP) PO SCH (09:19)
[2019-09-21] MEDS: predniSONE 20 MG TABLET (UD) PO SCH (09:19)
[2019-09-21] MEDS: ASPIRIN 81 MG CHEWABLE TABLETS PO SCH (09:19)
[2019-09-21] MEDS: APIXABAN 2.5 MG TABLET PO SCH ×2 (09:19→21:41)
[2019-09-21] MEDS: CEFTRIAXONE 1 GM in DEXTROSE 5%-WATER - 50 ML IVPB SCH (09:40)
[2019-09-21] MEDS: AZITHROMYCIN IVPB 500 MG/250 ML BAG IVPB SCH (10:39)
--- NOTE | 2019-09-21 11:37 | PN ---
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 Illness: Pt w/o fever, chills, cough, CP, palpitations, abd pain. Pt with left shoulder pain, this AM, no specific trigger. Pt's son is at bedside - Current Medication List Current Medications: Active Medications Albuterol Sulfate (Ventolin 0.083% Nebulizer Soln -) 1 amp NEB RQ4H PRN PRN Reason: SHORT OF BREATH/WHEEZING Albuterol/Ipratropium (Duoneb -) [address] [facility] Last Admin: 09/21/19 07:34 Dose: 1 amp Apixaban (Eliquis -) 2.[address] [facility] Last Admin: 09/21/19 09:19 Dose: 2.5 mg Aspirin (Asa -) [address] [facility] Last Admin: 09/21/19 09:19 Dose: 81 mg Citalopram Hydrobromide (Celexa -) [address] [facility] Furosemide (Lasix -) [address] [facility] Last Admin: 09/21/19 09:19 Dose: 20 mg Hydralazine HCl (Apresoline -) [address] [facility] Last Admin: 09/21/19 09:19 Dose: 25 mg Azithromycin (Zithromax 500mg Ivpb (Pre-Docked)) 500 mg in 250 mls @ 250 mls/ hr IVPB DAILY [facility] Last Admin: 09/21/19 10:39 Dose: 250 mls/hr Ceftriaxone Sodium 1 gm/ (Dextrose) 50 mls @ 100 mls/hr IVPB DAILY [facility] Last Admin: 09/21/19 09:40 Dose: 100 mls/hr Losartan Potassium (Cozaar -) [address] [facility] Last Admin: 09/21/19 09:19 Dose: 100 mg Metoprolol Succinate (Toprol Xl -) [address] [facility] Last Admin: 09/21/19 09:19 Dose: 50 mg Prednisone (Deltasone -) [address] [facility] Last Admin: 09/21/19 09:19 Dose: 20 mg Rosuvastatin Calcium (Crestor -) [address] [facility] Last Admin: 09/21/19 09:19 Dose: 10 mg - Objective Vital Signs: Vital Signs Temperature 98.2 F 09/21/19 05:34 Pulse Rate 86 09/21/19 05:34 Respiratory Rate 18 09/21/19 05:34 Blood Pressure 151/78 09/21/19 05:34 O2 Sat by Pulse Oximetry (%) 99 09/19/19 09:00 Constitutional: Yes: No Distress, Calm Cardiovascular: Yes: Regular Rate and Rhythm, S1, S2 Respiratory: Yes: Regular, Wheezes (expiratory) Gastrointestinal: Yes: Normal Bowel Sounds, Soft. No: Tenderness Extremities: Yes: Other (Lefdt shoulder: no bruise, no deformity, no pain w passive moivements, + pain with active movements.) Edema: No Neurological: Yes: Alert, Oriented Labs: CBC, BMP 09/21/19 07:18 09/21/19 07:18 Problem List - Problems (1) Acute bronchitis Code(s): J20.9 - ACUTE BRONCHITIS, UNSPECIFIED Qualifiers: Bronchitis organism: unspecified organism Qualified Code(s): J20.9 - Acute bronchitis, unspecified (2) Wheezing Code(s): R06.2 - WHEEZING (3) UTI (urinary tract infection) Code(s): N39.0 - URINARY TRACT INFECTION, SITE NOT SPECIFIED Qualifiers: Urinary tract infection type: site unspecified (4) CHF (congestive heart failure), NYHA class II Code(s): I50.9 - HEART FAILURE, UNSPECIFIED (5) CVA (cerebral vascular accident) Code(s): I63.9 - CEREBRAL INFARCTION, UNSPECIFIED Qualifiers: CVA mechanism: unspecified Qualified Code(s): I63.9 - Cerebral infarction, unspecified (6) HTN (hypertension) Code(s): I10 - ESSENTIAL (PRIMARY) HYPERTENSION (7) Hypercholesterolemia Code(s): E78.00 - PURE HYPERCHOLESTEROLEMIA, UNSPECIFIED (8) Paroxysmal A-fib Code(s): I48.0 - PAROXYSMAL ATRIAL FIBRILLATION (9) Pneumonia Code(s): J18.9 - PNEUMONIA, UNSPECIFIED ORGANISM Qualifiers: Pneumonia type: due to unspecified organism Laterality: left Lung location: lower lobe of lung Qualified Code(s): J18.9 - Pneumonia, unspecified organism (10) Shoulder pain, left Code(s): M25.512 - PAIN IN LEFT SHOULDER Assessment/Plan IV abtx. Steroids Pulmonary, Cardio consults are appreciated Left shoulder XR; Tylenol for pain, PRN AM labs
[2019-09-21] MEDS ORDERED: ACETAMINOPHEN 325 MG TABLET (FP) PO PRN (11:46)
--- NOTE | 2019-09-21 13:20 | PN ---
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 history of o hypertension, permanent atrial fibrillation, status post cerebrovascular accident and hypothyroidism. Minimal cough cough, no shortness of breatt or dyspnea. Active Medications Generic Name Dose Route Start Last Admin Trade Name Freq PRN Reason Stop Dose Admin Acetaminophen 650 mg 09/21/19 11:46 09/21/19 11:53 Tylenol - PO 650 mg Q6H PRN Administration PAIN 1-3 Albuterol Sulfate 1 amp 09/18/19 10:31 Ventolin 0.083% Nebulizer Soln - NEB RQ4H PRN SHORT OF BREATH/WHEEZING Albuterol/Ipratropium 1 amp 09/18/19 12:00 09/21/19 12:39 Duoneb - NEB 1 amp RQID SHAHRAM Administration Apixaban 2.5 mg 09/16/19 22:00 09/21/19 09:19 Eliquis - PO 2.5 mg BID SHAHRAM Administration Aspirin 81 mg 09/17/19 10:00 09/21/19 09:19 Asa - PO 81 mg DAILY SHAHRAM Administration Citalopram Hydrobromide 10 mg 09/17/19 10:00 Celexa - PO DAILY SHAHRAM Furosemide 20 mg 09/17/19 10:00 09/21/19 09:19 Lasix - PO 20 mg DAILY SHAHRAM Administration Hydralazine HCl 25 mg 09/16/19 22:00 09/21/19 09:19 Apresoline - PO 25 mg BID SHAHRAM Administration Azithromycin 500 mg in 250 mls @ 250 mls/hr 09/17/19 10:00 09/21/19 10:39 Zithromax 500mg Ivpb (Pre-Docked) IVPB 250 mls/hr DAILY SHAHRAM Administration Ceftriaxone Sodium 1 gm/ 50 mls @ 100 mls/hr 09/17/19 10:00 09/21/19 09:40 Dextrose IVPB 100 mls/hr DAILY SHAHRAM Administration Losartan Potassium 100 mg 09/17/19 10:00 09/21/19 09:19 Cozaar - PO 100 mg DAILY SHAHRAM Administration Metoprolol Succinate 50 mg 09/17/19 10:00 09/21/19 09:19 Toprol Xl - PO 50 mg DAILY SHAHRAM Administration Prednisone 20 mg 09/20/19 10:00 09/21/19 09:19 Deltasone - PO 20 mg DAILY SHAHRAM Administration Rosuvastatin Calcium 10 mg 09/17/19 10:00 09/21/19 09:19 Crestor - PO 10 mg DAILY SHAHRAM Administration Last Vital Signs Temp Pulse Resp BP Pulse Ox 98.2 F 102 H 18 154/74 99 09/21/19 10:00 09/21/19 10:00 09/21/19 10:00 09/21/19 10:00 09/19/19 09:00 Neck:supple, no JVD, carotids are 2+, upstrokes were normal. Heart: S1 was variable, S2 was normal. grade II/ DEMARIO heard at the right intercostal space, no diastolic murmur or gallops were heard. Lungs: Scattered expiratory wheezing. Abdomen: Soft, nontender, no hepatosplenomegaly, no palpable masses. Umbilical hernia and well-healed surgical scar. Extremities: No calf tenderness or dependent edema. CBC, BMP 09/21/19 07:18 09/21/19 07:18 Impression: 1. Asthamatic bronchitis, resolved 2. Hypertension. 3. Permanent atrial fibrillation. 4. Hypothyroidism. 5. COPD. 6. Status post CVA. 7. Elevated blood sugar. 8. Hypercholesterolemia. Recommendations: 1. Continue current cardiac medication. 2. Increase ambulation. 3. Physical therapy. 4. Discharge when medically stable. Kale Quiñones MD.
--- NOTE | 2019-09-21 13:48 | PN ---
Progress Note (short form) - Note Progress Note: PULMONARY Denies shortness of breath, cough or wheezing. Vital Signs Period Temp Pulse Resp BP Sys/Espinoza Pulse Ox Last 24 Hr 97.6 F-98.2 F 84-102 18-18 126-154/66-78 Gen: NAD at rest Heart: RRR Lung: decreased breath sounds at the bases Abd: soft, nontender Ext: no edema CBC, BMP 09/21/19 07:18 09/21/19 07:18 Active Medications Acetaminophen (Tylenol -) 650 mg PO Q6H PRN PRN Reason: PAIN 1-3 Last Admin: 09/21/19 11:53 Dose: 650 mg Albuterol Sulfate (Ventolin 0.083% Nebulizer Soln -) 1 amp NEB RQ4H PRN PRN Reason: SHORT OF BREATH/WHEEZING Albuterol/Ipratropium (Duoneb -) 1 amp NEB RQID [facility] Last Admin: 09/21/19 12:39 Dose: 1 amp Apixaban (Eliquis -) 2.5 mg PO BID [facility] Last Admin: 09/21/19 09:19 Dose: 2.5 mg Aspirin (Asa -) 81 mg PO DAILY [facility] Last Admin: 09/21/19 09:19 Dose: 81 mg Citalopram Hydrobromide (Celexa -) 10 mg PO DAILY [facility] Furosemide (Lasix -) 20 mg PO DAILY [facility] Last Admin: 09/21/19 09:19 Dose: 20 mg Hydralazine HCl (Apresoline -) 25 mg PO BID [facility] Last Admin: 09/21/19 09:19 Dose: 25 mg Azithromycin (Zithromax 500mg Ivpb (Pre-Docked)) 500 mg in 250 mls @ 250 mls/ hr IVPB DAILY [facility] Last Admin: 09/21/19 10:39 Dose: 250 mls/hr Ceftriaxone Sodium 1 gm/ (Dextrose) 50 mls @ 100 mls/hr IVPB DAILY [facility] Last Admin: 09/21/19 09:40 Dose: 100 mls/hr Losartan Potassium (Cozaar -) 100 mg PO DAILY [facility] Last Admin: 09/21/19 09:19 Dose: 100 mg Metoprolol Succinate (Toprol Xl -) 50 mg PO DAILY [facility] Last Admin: 09/21/19 09:19 Dose: 50 mg Prednisone (Deltasone -) 20 mg PO DAILY [facility] Last Admin: 09/21/19 09:19 Dose: 20 mg Rosuvastatin Calcium (Crestor -) 10 mg PO DAILY [facility] Last Admin: 09/21/19 09:19 Dose: 10 mg A/P Acute COPD Exacerbation Pneumonia UTI Atrial Fibrillation h/o CVA HTN Hyperlipidemia - continue antibiotics - prednisone taper - inhaled bronchodilators - O2 to keep SpO2 >90% - rate control - continue anticoagulation Problem List - Problems (1) COPD with acute exacerbation Code(s): J44.1 - CHRONIC OBSTRUCTIVE PULMONARY DISEASE W (ACUTE) EXACERBATION
[2019-09-22] MEDS: ALBUTEROL SO4 2.5/IPRATROPIUM 0.5 INH SOL 3 ML VIAL.NEB. NEB SCH ×3 (07:50→15:49)
[2019-09-22 08:11] LABS: HEMATOCRIT 37.1 % (32.4-45.2); HEMOGLOBIN 12.3 GM/dL (10.7-15.3); MCH 28.8 pg (25.7-33.7); MCHC 33.2 g/dl (32.0-36.0); MEAN CELL VOLUME 86.7 fl (80-96); MEAN PLT VOLUME 8.5 fl (7.5-11.1); PLATELET COUNT 232 K/MM3 (134-434); RBC 4.28 M/mm3 (3.60-5.2); RDW 14.4 % (11.6-15.6)
[2019-09-22] MEDS ORDERED: PT OWN MED DRAWER 7, Y5N ONE (09:53)
[2019-09-22] MEDS ORDERED: DEXTROSE 5%-WATER - 50 ML IVPB ONE (09:54)
[2019-09-22] MEDS ORDERED: cefTRIAXone SODIUM 1 GM VIAL ONE (09:54)
--- NOTE | 2019-09-22 09:54 | PN ---
Progress Note (short form) - Note Progress Note: Denies shortness of breath, cough or wheezing. Afebrile. No acute events overnight. Intake & Output 09/19/19 09/20/19 09/21/19 09/22/19 23:59 23:59 23:59 23:59 Intake Total 1100 1090 440 Balance 1100 1090 440 Last Vital Signs Temp Pulse Resp BP Pulse Ox 98.2 F 85 18 160/82 99 09/22/19 06:00 09/21/19 20:08 09/22/19 06:00 09/22/19 06:00 09/21/19 22:00 Active Medications Acetaminophen (Tylenol -) 650 mg PO Q6H PRN PRN Reason: PAIN 1-3 Last Admin: 09/21/19 11:53 Dose: 650 mg Albuterol Sulfate (Ventolin 0.083% Nebulizer Soln -) 1 amp NEB RQ4H PRN PRN Reason: SHORT OF BREATH/WHEEZING Albuterol/Ipratropium (Duoneb -) 1 amp NEB RQID [facility] Last Admin: 09/22/19 07:50 Dose: 1 amp Apixaban (Eliquis -) 2.5 mg PO BID [facility] Last Admin: 09/21/19 21:41 Dose: 2.5 mg Aspirin (Asa -) 81 mg PO DAILY [facility] Last Admin: 09/21/19 09:19 Dose: 81 mg Citalopram Hydrobromide (Celexa -) 10 mg PO DAILY [facility] Furosemide (Lasix -) 20 mg PO DAILY [facility] Last Admin: 09/21/19 09:19 Dose: 20 mg Hydralazine HCl (Apresoline -) 25 mg PO BID [facility] Last Admin: 09/21/19 21:41 Dose: 25 mg Azithromycin (Zithromax 500mg Ivpb (Pre-Docked)) 500 mg in 250 mls @ 250 mls/ hr IVPB DAILY [facility] Last Admin: 09/21/19 10:39 Dose: 250 mls/hr Ceftriaxone Sodium 1 gm/ (Dextrose) 50 mls @ 100 mls/hr IVPB DAILY [facility] Last Admin: 09/21/19 09:40 Dose: 100 mls/hr Losartan Potassium (Cozaar -) 100 mg PO DAILY [facility] Last Admin: 09/21/19 09:19 Dose: 100 mg Metoprolol Succinate (Toprol Xl -) 50 mg PO DAILY [facility] Last Admin: 09/21/19 09:19 Dose: 50 mg Prednisone (Deltasone -) 20 mg PO DAILY [facility] Last Admin: 09/21/19 09:19 Dose: 20 mg Rosuvastatin Calcium (Crestor -) 10 mg PO DAILY [facility] Last Admin: 09/21/19 09:19 Dose: 10 mg Gen: NAD at rest Heart: RRR Lung: decreased breath sounds at the bases Abd: soft, nontender Ext: no edema Laboratory Results - last 24 hr 09/22/19 07:26 WBC 15.0 H RBC 4.28 Hgb 12.3 Hct 37.1 MCV 86.7 MCH 28.8 MCHC 33.2 RDW 14.4 Plt Count 232 MPV 8.5 A/P Acute COPD Exacerbation Pneumonia UTI Atrial Fibrillation h/o CVA HTN Hyperlipidemia - continue antibiotics - prednisone taper - inhaled bronchodilators - O2 to keep SpO2 >90% - rate control - continue anticoagulation Problem List - Problems (1) COPD with acute exacerbation Code(s): J44.1 - CHRONIC OBSTRUCTIVE PULMONARY DISEASE W (ACUTE) EXACERBATION A/P Acute COPD Exacerbation Pneumonia UTI Atrial Fibrillation h/o CVA HTN Hyperlipidemia - Today is day#7 of ABX: Can DC and observe - prednisone taper - inhaled bronchodilators - O2 to keep SpO2 >90% - rate control - continue anticoagulation - There is no Pulmonary contraindication for DC home Dr Quintanilla
[2019-09-22] MEDS: hydrALAZINE HCL 25 MG TABLET (FP) PO SCH (09:57)
[2019-09-22] MEDS: ASPIRIN 81 MG CHEWABLE TABLETS PO SCH (09:57)
[2019-09-22] MEDS: LOSARTAN POTASSIUM 50 MG TABLET (FP) PO SCH (09:58)
[2019-09-22] MEDS: predniSONE 20 MG TABLET (UD) PO SCH (09:58)
[2019-09-22] MEDS: ROSUVASTATIN CA 10 MG TABLET (FP) PO SCH (09:58)
[2019-09-22] MEDS: FUROSEMIDE 20 MG TABLET (FP) PO SCH (09:59)
[2019-09-22] MEDS: CEFTRIAXONE 1 GM in DEXTROSE 5%-WATER - 50 ML IVPB SCH (09:59)
[2019-09-22] MEDS: APIXABAN 2.5 MG TABLET PO SCH (09:59)
[2019-09-22] MEDS: AZITHROMYCIN IVPB 500 MG/250 ML BAG IVPB SCH (10:39)
[2019-09-22 13:56] VITALS: BP 128/71; PULSE 117; TEMP 98
--- NOTE | 2019-09-22 14:30 | DS ---
Physical Examination Vital Signs: Vital Signs Temperature 98.0 F 09/22/19 13:56 Pulse Rate 117 H 09/22/19 13:56 Respiratory Rate 20 09/22/19 13:56 Blood Pressure 128/71 09/22/19 13:56 O2 Sat by Pulse Oximetry (%) 96 09/22/19 10:00 Findings/Remarks: Pt w/o SOB, CP, palpitations, abd pain; pt 's cough is improved, occasionally. Constitutional: Yes: No Distress, Calm Cardiovascular: Yes: Regular Rate and Rhythm, S1, S2 Respiratory: Yes: Regular. No: Rales Gastrointestinal: Yes: Normal Bowel Sounds, Soft. No: Tenderness Edema: No Neurological: Yes: Alert, Oriented, Other (symmetric motor and sensory examination in UE/ LE) Labs: CBC, BMP 09/22/19 07:26 09/21/19 07:18 Discharge Summary Problems reviewed: Yes Reason For Visit: UTI BRONCHITIS Current Active Problems Acute bronchitis (Acute) CHF (congestive heart failure), NYHA class II (Acute) COPD with acute exacerbation (Acute) Shoulder pain, left (Acute) UTI (urinary tract infection) (Acute) Wheezing (Acute) Procedures: Principal: Chest CT scan. CXR Hospital Course: Pt came to ER with Hx/o productive cough for one week, associated with SOB and wheezing; pt was also noticed to have UTI. Pt was started on IV Abtx ( Ceftriaxone, Zithromax) and IV Solu-merdol; pt had Chest CT scan, positive for right lung acute infiltrates and chronic (intersitial)l domo disease. Pt was seen in consult by Pulmonary (Dr [place]/ [place]). Pt improved with current treatment, cleared by Pulmonary for DC. Pt to have CBC repeated (next Sunday, to f/u on elevated WBC -probable secondary to steroids). Condition: Improved - Instructions Diet, Activity, Other Instructions: Diet: Low salt/ Fat/ cholesterol Repeat CBC next Sunday (to f/u on WBC) Referrals: Kale Quiñones MD [Primary Care Provider] - Disposition: [facility]ILITY - Home Medications Comprehensive Discharge Medication List: Ambulatory Orders Apixaban [Eliquis -] 2.5 mg PO BID #60 tablet 05/23/19 Aspirin [ASA -] 81 mg PO DAILY #30 tab.chew 05/23/19 Citalopram Hydrobromide [Celexa -] 10 mg PO DAILY #30 tablet 05/23/19 Furosemide [Lasix -] 20 mg PO DAILY #30 tablet 05/23/19 Losartan Potassium [Cozaar -] 100 mg PO DAILY 30 Days #30 tablet 05/23/19 Metoprolol Succinate [Toprol XL -] 50 mg PO DAILY #30 tablet 05/23/19 Rosuvastatin Calcium [Crestor] 10 mg PO DAILY #30 tablet 05/23/19 hydrALAZINE HCL [Apresoline -] 25 mg PO BID [facility] 2 09/16/19 Acetaminophen [Tylenol .Regular Strength -] 650 mg PO Q6H PRN tablet 09/22/19 Albuterol 0.083% Nebulizer Sylvia [Ventolin 0.083% Nebulizer Soln -] 1 amp NEB Q6H PRN amp 09/22/19 predniSONE [Deltasone -] 10 mg PO DAILY 3 Days #3 tablet [facility]D 1 09/22/19
== END 2019-09-22 19:52 | DRG 190 ==
LOC: JER 13:57 → JERBED 16:10 → J8W 20:52
PROVIDERS: ADMIT Specialist; ATTEND Specialist
DX: J44.0 Chronic obstructive pulmonary disease with (acute) lower respiratory infection (principal); J18.9 Pneumonia, unspecified organism; N39.0 Urinary tract infection, site not specified; J20.9 Acute bronchitis, unspecified; J44.1 Chronic obstructive pulmonary disease with (acute) exacerbation; Z79.01 Long term (current) use of anticoagulants; I10 Essential (primary) hypertension; E78.5 Hyperlipidemia, unspecified; Z86.718 Personal history of other venous thrombosis and embolism; I48.0 Paroxysmal atrial fibrillation; E78.00 Pure hypercholesterolemia, unspecified; E03.9 Hypothyroidism, unspecified; M25.512 Pain in left shoulder
CPT/HCPCS: 36415; 71045-TC-FY; 71250-TC; 73030-TC-LT-FY; 80048; 80053; 81003; 83735; 84100; 85025; 85027; 87081; 87086; 87186; 87804; 87899; 93005; 93010; 94640; 99285-25; G0008; Q2036

== ENCOUNTER 2020-06-13 14:54 | Inpatient (IN) | payer OTHER ==
[2020-06-13] MEDS ORDERED: ACETAMINOPHEN 1000 MG/100 ML VIAL (NON FORMULARY) IVPB ONE (16:07)
[2020-06-13] MEDS ORDERED: ACETAMINOPHEN INJECTION 100 ML IVPB ONE (16:22)
--- NOTE | 2020-06-13 16:27 | PDOC ---
Documentation entered by Jacki Damon SCRIBE, acting as scribe for Thanh Kaur MD. Thanh Kaur MD: This documentation has been prepared by the sharonibeNelson Ana, SCRIBE, under my direction and personally reviewed by me in its entirety. I confirm that the documentation accurately reflects all work, treatment, procedures, and medical decision making performed by me. Attending Attestation - Resident Resident Name: Reymundo Worthy - ED Attending Attestation I have performed the following: I have examined & evaluated the patient, The case was reviewed & discussed with the resident, I agree w/resident's findings & plan, Exceptions are as noted - HPI HPI: 06/13/20 15:34 Patient is an 85 year old female with a significant past medical history of Afib, CVA, DVT, hypertension, and hyperlipidemia, who presents to the ED with weakness and shoulder pain. Patient denies: any other related symptoms. Allergies: sulfamethoxazole and trimethoprim - Physicial Exam PE: 06/13/20 15:35 Vitals: Triage vital signs reviewed General Appearance: No acute distress, well nourished, well developed Head: Atraumatic Neck: Supple; No nuchal rigidity Chest Wall: Nontender Cardiac: Regular rate and rhythm, no murmurs, no rubs, no gallops Lungs: Clear to auscultation bilateral, good air movement bilaterally Abdomen: Soft, nondistended, normal bowel sounds, nontender to palpation Extremities: Full range of motion to all extremities, no cyanosis, clubbing, or edema Skin: Warm and dry, no rashes or lesions, no rash, no petechiae Neuro: Strength intact to all extremities, Sensation intact to all extremities, gait normal Psych: Normal mood, normal affect - Medical Decision Making 06/13/20 16:28 Patient is an 85 year old female with a significant past medical history of Afib, CVA, DVT, hypertension, and hyperlipidemia, who presents to the ED with weakness and shoulder pain. Poor historian presents to the emergency department with generalized weakness will check labs chest x-ray urinalysis Dr. Merino to follow-up results and reassess. Discharge - Discharge Information Problems reviewed: Yes Clinical Impression/Diagnosis: UTI (urinary tract infection) Qualifiers: Urinary tract infection type: site unspecified Hematuria presence: without hematuria Qualified Code(s): N39.0 - Urinary tract infection, site not specified Condition: Good - Follow up/Referral - Patient Discharge Instructions - Post Discharge Activity
--- NOTE | 2020-06-13 16:45 | PDOC ---
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 She thinks this is why she was sent, but multiple attempts were made to contact the NH for more information with no success. Denies trauma or falls. Patient also reports SOB and wheezing. ROS otherwise negative. --Spoke with the son (Edward; [phone]), who states his mother was sent to the hospital for "side pain" (abdominal?) and diarrhea. Patient denies these symptoms. Son also confirms that patient is in NH for dementia. PCP: Kale Quiñones PMH/PSH: as above Home Medications Medication Instructions Recorded Apixaban [Eliquis -] 2.5 mg PO BID #60 tablet 05/23/19 Aspirin [ASA -] 81 mg PO DAILY #30 tab.chew 05/23/19 Citalopram Hydrobromide [Celexa -] 10 mg PO DAILY #30 tablet 05/23/19 Furosemide [Lasix -] 20 mg PO DAILY #30 tablet 05/23/19 Losartan Potassium [Cozaar -] 100 mg PO DAILY 30 Days #30 tablet 05/23/19 Metoprolol Succinate [Toprol XL -] 50 mg PO DAILY #30 tablet 05/23/19 Rosuvastatin Calcium [Crestor] 10 mg PO DAILY #30 tablet 05/23/19 hydrALAZINE HCL [Apresoline -] 25 mg PO BID MDD 2 09/16/19 Acetaminophen [Tylenol .Regular 650 mg PO Q6H PRN tablet 09/22/19 Strength -] Acetaminophen [Tylenol] 650 mg PO Q12H PRN #60 tablet MDD 4 09/22/19 Albuterol 0.083% Nebulizer Sylvia 1 amp NEB Q6H PRN amp 09/22/19 [Ventolin 0.083% Nebulizer Soln -] Albuterol 0.083% Nebulizer Sylvia 1 neb NEB Q6H PRN #100 vial MDD 4 09/22/19 [Ventolin 0.083% Nebulizer Soln -] predniSONE [Deltasone -] 10 mg PO DAILY #3 tablet MDD 1 09/22/19 predniSONE [Deltasone -] 10 mg PO DAILY 3 Days #3 tablet 09/22/19 MDD 1 Allergies Allergy/AdvReac Type Severity Reaction Status Date / Time sulfamethoxazole Allergy Verified 09/16/19 14:19 [From Bactrim] trimethoprim [From Bactrim] Allergy Verified 09/16/19 14:19 ROS GENERAL/CONSTITUTIONAL: No fever or chills. CARDIOVASCULAR: No chest pain. +shortness of breath RESPIRATORY: No cough. +wheezing GASTROINTESTINAL: No nausea, vomiting, diarrhea or constipation. GENITOURINARY: No dysuria or frequency MUSCULOSKELETAL: right shoulder pain. no back pain. SKIN: No rash NEUROLOGIC: No headache or loss of consciousness ENDOCRINE: No increased thirst. No abnormal weight change ALLERGIC/IMMUNOLOGIC: No hives or skin allergy. PE GENERAL: Awake, alert, and fully oriented, in no acute distress HEAD: No signs of trauma, normocephalic, atraumatic EYES: PERRLA, EOMI, sclera anicteric, conjunctiva clear ENT: Auricles normal inspection, hearing grossly normal, nares patent, oropharynx clear without exudates. Moist mucosa NECK: Normal ROM, supple, no lymphadenopathy, JVD, or masses LUNGS: No distress, speaks full sentences, clear to auscultation bilaterally. tachypneic HEART: irregularly irregular, normal rate, normal S1 and S2, no murmurs, rubs or gallops, peripheral pulses normal and equal bilaterally. ABDOMEN: Soft, distented, non-tender, normoactive bowel sounds. No guarding, no rebound. No masses EXTREMITIES : Normal inspection, Normal range of motion, no edema. No clubbing or cyanosis. 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 Also complains of SOB. On exam, she is tender in the left shoulder, tachypneic with audible wheezing but not hypoxic, and her abdomen is soft and non-tender. DDx includes shoulder fracture, ACS, pneumonia, UTI. -EKG -CXR -CBC, CMP, trops, UA/UC -left shoulder x-ray 06/13/20 18:13 EKG: atrial flutter with variable AV block, rate 66, normal axis, normal intervals, no ischemic changes CXR: no focal consolidation (my read) Shoulder x-ray: no obvious fracture or dislocation (my read) Labs: Laboratory Tests 06/13/20 06/13/20 06/13/20 16:59 17:50 17:50 WBC 16.5 H RBC 4.08 Hgb 12.5 Hct 37.1 MCV 91.0 MCH 30.6 MCHC 33.6 RDW 13.5 Plt Count 198 MPV 8.0 Absolute Neuts (auto) 12.1 H Neutrophils % 73.4 Lymphocytes % 7.4 L D Monocytes % 17.5 H D Eosinophils % 1.4 D Basophils % 0.3 Nucleated RBC % 0 Sodium 139 Potassium 4.1 Chloride 105 Carbon Dioxide 27 Anion Gap 7 L BUN 24.6 H Creatinine 1.2 Est GFR (CKD-EPI)AfAm 47.06 Est GFR (CKD-EPI)NonAf 40.60 Random Glucose 97 Calcium 8.5 Total Bilirubin 1.1 H AST 21 ALT 20 Alkaline Phosphatase 98 Creatine Kinase 119 Troponin I < 0.02 Total Protein 6.3 L Albumin 3.1 L Urine Color Yellow Urine Appearance Cloudy Urine pH 5.0 Ur Specific [place] 1.016 Urine Protein 2+ H Urine Glucose (UA) Negative Urine Ketones Negative Urine Blood Negative Urine Nitrite Positive H Urine Bilirubin Negative Urine Urobilinogen 0.2 Ur Leukocyte Esterase 2+ H Urine WBC (Auto) 388 Urine RBC (Auto) 7 Urine Casts (Auto) 31 U Pathogenic Cast Auto Negative U Epithel Cells (Auto) 7 Urine Bacteria (Auto) >9,000 UA shows evidence of UTI, and if the patient complained of "side pain" in the hospital, this would be a symptomatic UTI. Otherwise, labs show WBC of 16.5 without left shift, elevation in BUN (chronic) Will admit for UTI and SOB 06/13/20 18:52 Signed out to night team. Pending admission Past History - Medical History Allergies/Adverse Reactions: Allergies Allergy/AdvReac Type Severity Reaction Status Date / Time sulfamethoxazole Allergy Verified 06/13/20 18:13 [From Bactrim] trimethoprim [From Bactrim] Allergy Verified 06/13/20 18:13 Home Medications: Ambulatory Orders Apixaban [Eliquis -] 2.5 mg PO BID #60 tablet 05/23/19 Aspirin [ASA -] 81 mg PO DAILY #30 tab.chew 05/23/19 Citalopram Hydrobromide [Celexa -] 10 mg PO DAILY #30 tablet 05/23/19 Furosemide [Lasix -] 20 mg PO DAILY #30 tablet 05/23/19 Metoprolol Succinate [Toprol XL -] 50 mg PO DAILY #30 tablet 05/23/19 hydrALAZINE HCL [Apresoline -] 25 mg PO BID MDD 2 09/16/19 Losartan Potassium [Cozaar -] 50 mg PO BID 06/13/20 Quetiapine Fumarate [Seroquel -] 12.5 mg PO BID 06/13/20 Anemia: Yes Asthma: No Cancer: No Cardiac Disorders: Yes (a.fib) CVA: Yes (x3) COPD: No CHF: No DVT: Yes Dementia: No Diabetes: No GI Disorders: Yes Disorders: Yes (KIDNEY STONES) HTN: Yes Hypercholesterolemia: Yes Liver Disease: No Seizures: No Thyroid Disease: No - Surgical History Abdominal Surgery: Yes Appendectomy: Yes Cardiac Surgery: No Cholecystectomy: No Lung Surgery: No Neurologic Surgery: No Orthopedic Surgery: No - Reproductive History Is Patient Now?: No - Immunization History Immunization Up to Date: Yes - Psycho-Social/Smoking History Smoking History: Never smoked Have you smoked in the past 12 months: No If you are a former smoker, when did you quit?: 40yrs 'Breaking Loose' booklet given: 08/05/18 - Substance Abuse Hx (Audit-C & DAST Scrn) In the last yr the pt used illegal drug/Rx for NonMed reason: No Score: Yes response is considered Positive: 0 Screen Result (Positive result requires Nsg. DAST-10): Negative *Physical Exam - Vital Signs Last Vital Signs Temp Pulse Resp BP Pulse Ox 97.8 F 82 16 140/80 100 06/13/20 15:00 06/13/20 15:00 06/13/20 15:00 06/13/20 15:00 06/13/20 15:00 ED Treatment Course - LABORATORY CBC & Chemistry Diagram: 06/13/20 17:50 06/13/20 17:50 Discharge - Discharge Information Problems reviewed: Yes Clinical Impression/Diagnosis: UTI (urinary tract infection) Qualifiers: Urinary tract infection type: site unspecified Hematuria presence: without hematuria Qualified Code(s): N39.0 - Urinary tract infection, site not specified Condition: Stable - Follow up/Referral - Patient Discharge Instructions - Post Discharge Activity
[2020-06-13 17:27] LABS: EPI CELLS 7 /uL (0-25.1); HYALINE CASTS 31 /uL (0-3.1); URINE APPEARANCE CLOUDY; URINE BACTERIA >9,000 /uL (0-1359); URINE BILIRUBIN NEGATIVE (NEGATIVE); URINE COLOR YELLOW; URINE GLUCOSE (UA) NEGATIVE (NEGATIVE); URINE KETONE NEGATIVE (NEGATIVE); URINE LEUK ESTERASE 2+ (NEGATIVE); URINE NITRITE POSITIVE (NEGATIVE); URINE PROTEIN 2+ (NEGATIVE); URINE RBC 7 /uL (0-23.9); URINE UROBILINOGEN 0.2 mg/dL (0.2-1.0); URINE WBC 388 /uL (0-25.8)
[2020-06-13 17:57] LABS: BASO % 0.3 % (0-2.0); EOS % 1.4 % (0-4.5); HEMATOCRIT 37.1 % (32.4-45.2); HEMOGLOBIN 12.5 GM/dL (10.7-15.3); LYMPH % 7.4 % (8-40); MCH 30.6 pg (25.7-33.7); MCHC 33.6 g/dl (32.0-36.0); MONO % 17.5 % (3.8-10.2); NEUT % 73.4 % (42.8-82.8); PLATELET COUNT 198 K/MM3 (134-434); RBC 4.08 M/mm3 (3.60-5.2); RDW 13.5 % (11.6-15.6); WHITE BLOOD COUNT 16.5 K/mm3 (4.0-10.0)
[2020-06-13] MEDS ORDERED: CEFTRIAXONE 1 GM/50 ML BAG ONE (18:05)
[2020-06-13 18:43] LABS: ALBUMIN 3.1 g/dl (3.4-5.0); ALK PHOS 98 U/L (45-117); ANION GAP 7 MMOL/L (8-16); BILIRUBIN,TOTAL 1.1 mg/dL (0.2-1); BLOOD UREA NITROGEN 24.6 mg/dL (7-18); CALCIUM 8.5 mg/dL (8.5-10.1); CHLORIDE 105 mmol/L (98-107); CO2 27 mmol/L (21-32); CREATININE 1.2 mg/dL (0.55-1.3); GLUCOSE,RANDOM 97 mg/dL (74-106); POTASSIUM 4.1 mmol/L (3.5-5.1); SGOT/AST 21 U/L (15-37); SGPT/ALT 20 U/L (13-61); SODIUM 139 mmol/L (136-145); TOT PROT 6.3 g/dl (6.4-8.2)
--- NOTE | 2020-06-13 19:25 | PDOC ---
*Physical Exam - Vital Signs Last Vital Signs Temp Pulse Resp BP Pulse Ox 99.1 F 77 28 H 120/73 96 06/13/20 16:57 06/13/20 18:00 06/13/20 18:00 06/13/20 18:00 06/13/20 18:00 ED Treatment Course - LABORATORY CBC & Chemistry Diagram: 06/13/20 17:50 06/13/20 17:50 - ADDITIONAL ORDERS Additional order review: Laboratory Results 06/13/20 06/13/20 17:50 16:59 Sodium 139 Potassium 4.1 Chloride 105 Carbon Dioxide 27 Anion Gap 7 L BUN 24.6 H Creatinine 1.2 Est GFR (CKD-EPI)AfAm 47.06 Est GFR (CKD-EPI)NonAf 40.60 Random Glucose 97 Calcium 8.5 Total Bilirubin 1.1 H AST 21 ALT 20 Alkaline Phosphatase 98 Creatine Kinase 119 Troponin I < 0.02 Total Protein 6.3 L Albumin 3.1 L Urine Color Yellow Urine Appearance Cloudy Urine pH 5.0 Ur Specific [place] 1.016 Urine Protein 2+ H Urine Glucose (UA) Negative Urine Ketones Negative Urine Blood Negative Urine Nitrite Positive H Urine Bilirubin Negative Urine Urobilinogen 0.2 Ur Leukocyte Esterase 2+ H Urine WBC (Auto) 388 Urine RBC (Auto) 7 Urine Casts (Auto) 31 U Pathogenic Cast Auto Negative U Epithel Cells (Auto) 7 Urine Bacteria (Auto) >9,000 06/13/20 17:50 RBC 4.08 MCV 91.0 MCHC 33.6 RDW 13.5 MPV 8.0 Neutrophils % 73.4 Lymphocytes % 7.4 L D Monocytes % 17.5 H D Eosinophils % 1.4 D Basophils % 0.3 - Medications Given in the ED: ED Medications Discontinued Medications Generic Name Dose Route Start Last Admin Trade Name Freq PRN Reason Stop Dose Admin Acetaminophen 1,000 mg 06/13/20 16:07 06/13/20 18:00 Ofirmev Injection - IVPB 06/13/20 16:08 1,000 mg ONCE ONE Administration Medical Decision Making - Medical Decision Making 06/13/20 19:20 Signed out to me by Dr. Worthy. 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 DVT, HLD. Sent from [facility] for L shoulder pain. Evaluation remarkable for grossly dirty urine, diagnosed with UTI, started on Rocephin. Per MOLST, giving one round of antibiotics, no IVF. ECG Aflut with AV block, HR 66, QTc 408, no VINEET/D. Plan to admit for UTI treatment. 06/13/20 19:51 Discussed case with admitting team, accepts for admission to /S for UTI. Discharge - Discharge Information Problems reviewed: Yes Clinical Impression/Diagnosis: UTI (urinary tract infection) Qualifiers: Urinary tract infection type: site unspecified Hematuria presence: without h ematuria Qualified Code(s): N39.0 - Urinary tract infection, site not specified Condition: Stable - Follow up/Referral - Patient Discharge Instructions - Post Discharge Activity
--- NOTE | 2020-06-13 19:27 | PN ---
Teaching Attending Note Name of Resident: Jerry Bro ATTENDING PHYSICIAN STATEMENT I saw and evaluated the patient. I reviewed the resident's note and discussed the case with the resident. I agree with the resident's findings and plan as documented. 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 She thinks this is why she was sent, but multiple attempts were made to contact the NH for more information with no success. Denies trauma or falls. Patient also reports SOB and wheezing. ER staff spoke with the son (Edward; [phone]), who states his mother was sent to the hospital for "side pain" (abdominal?) and diarrhea. Patient denies these symptoms. Son also confirms that patient is in NH for dementia. Patient denies fever, chills, dysuria, frequency, urgency, melena, hematochezia or hematuria. Denies alcohol, tobacco or illicit drug use. No sick contacts or recent travels. Family history is unremarkable. OBJECTIVE: Alert Vital Signs Period Temp Pulse Resp BP Sys/Espinoza Pulse Ox Last 24 Hr 97.8 F-99.1 F 77-82 16-28 120-140/59-80 96-100 HEENT: No Jaundice, eye redness or discharge, PERRLA, EOMI. Normocephalic, atraumatic. External ears are normal and hearing is grossly intact. No nasal discharge. Neck: Supple, nontender. No palpable adenopathy or thyromegaly. No JVD Chest: Good effort. Clear to auscultation and percussion. Heart: Irregularly irregular. No S3, rub or murmur Abdomen: Not distended, soft, nontender and no HSM. No rebound or guarding. Normal bowel sounds. Ext: Peripheral pulses intact. No leg edema. Skin: Warm and dry. No petechiae, rash or ecchymosis. Neuro: Alert. Oriented x3. CN 2-12 grossly intact. Sensation grossly intact in all four extremities and DTR are symmetric. Psych: Appropriate mood and affect. Good insight. Home Medications Medication Instructions Recorded Apixaban [Eliquis -] 2.5 mg PO BID #60 tablet 05/23/19 Aspirin [ASA -] 81 mg PO DAILY #30 tab.chew 05/23/19 Citalopram Hydrobromide [Celexa -] 10 mg PO DAILY #30 tablet 05/23/19 Furosemide [Lasix -] 20 mg PO DAILY #30 tablet 05/23/19 Losartan Potassium [Cozaar -] 100 mg PO DAILY 30 Days #30 tablet 05/23/19 Metoprolol Succinate [Toprol XL -] 50 mg PO DAILY #30 tablet 05/23/19 hydrALAZINE HCL [Apresoline -] 25 mg PO BID MDD 2 09/16/19 Abnormal Lab Results 06/13/20 06/13/20 06/13/20 16:59 17:50 17:50 WBC 16.5 H Absolute Neuts (auto) 12.1 H Lymphocytes % 7.4 L D Monocytes % 17.5 H D Monocytes % (Manual) 19 H Anion Gap 7 L BUN 24.6 H Total Bilirubin 1.1 H Total Protein 6.3 L Albumin 3.1 L Urine Protein 2+ H Urine Nitrite Positive H Ur Leukocyte Esterase 2+ H Current Medications Generic Name Dose Route Start Last Admin Trade Name Freq PRN Reason Stop Dose Admin Apixaban 2.5 mg 06/13/20 22:00 06/13/20 21:56 Eliquis - PO 2.5 mg BID SHAHRAM Administration Aspirin 81 mg 06/14/20 10:00 Asa - PO DAILY SHAHRAM Furosemide 20 mg 06/14/20 10:00 Lasix - PO DAILY SHAHRAM Sodium Chloride 1,000 mls @ 60 mls/hr 06/13/20 22:32 06/13/20 22:34 Normal Saline - IV 60 mls/hr ASDIR SHAHRAM Administration Ceftriaxone Sodium 2 gm/ 100 mls @ 200 mls/hr 06/14/20 10:00 Dextrose IVPB DAILY SHAHRAM Metoprolol Succinate 50 mg 06/14/20 10:00 Toprol Xl - PO DAILY SHAHRAM ASSESSMENT AND PLAN: 1. UTI - No acute abnormality on CXR. No fracture or dislocation on left shoulder xray. Viral testing for COVID-19 ordered and patient placed on airborne, droplet and contact isolation. ER staff prescribed IV Ceftriaxone for UTI. EKG shows Atrial flutter with variable AV block at 66/minute and QTc [address]-T wave changes. Initial troponin is negative. Will continue comprehensive care for all of patients comorbid conditions. 2. DVT prophylaxis - On Eliquis for Aflutter. 3. Advance directives - DNR/DNI
[2020-06-13 19:38] LABS: ANISOCYTOSIS 1+; MACROCYTOSIS 0; OVALOCYTE 1+; PLATELET ESTIMATE NORMAL
[2020-06-13] MEDS ORDERED: SODIUM CHLORIDE 1,000 ML IV SCH (21:00)
[2020-06-13] MEDS ORDERED: CEFTRIAXONE 1,000 MG in DEXTROSE 5%-WATER - 50 ML IVPB STA (21:16)
[2020-06-13] MEDS: APIXABAN 2.5 MG TABLET PO SCH (21:56)
[2020-06-13] MEDS: SODIUM CHLORIDE 1,000 ML IV SCH (22:34)
[2020-06-14] MEDS ORDERED: HEPARIN NA (PORCINE) 5,000 UNITS/ML 1ML VIAL SQ SCH (02:00)
--- NOTE | 2020-06-14 04:44 | HP ---
CHIEF COMPLAINT: left shoulder pain with intermittent confusion PCP: Dr. Quiñones HISTORY OF PRESENT ILLNESS: 85 year old female patient with past medical history that includes Diastolic CHF, AFib on Eliquis, CVA x3, DVT, Vascular Dementia, HTN, HLD, CAD, Hx of Renal Calculi, and MRSA 2 years ago in a wound culture, who presented to the emergency room from [facility] with left shoulder pain and intermittent confusion. The son (Dusty) was called who explained that the patient's baseline mentation is that she has periods where she is able to have a conversation, but between those periods she is generally fatigued and lethargic. Recently her Neurologist increased her home medication dosage of Quetiapine due to suicidal ideation and paranoia on the part of the patient. The increase in dose of Quetiapine resolved the suicidal ideation and paranoia, but caused the patient to become much more fatigued. The patient is completely dependent on others for her activities of daily living. The son says that in the retirement the patient was reported to have 'side pain' (i.e. abdominal pain), but this may have been a miscommunication error, and they meant that the patient has 'shoulder pain'. The son denies the patient having any recent falls. The patient has also not been eating for the past day or two. The patient has also had labored breathing for the past couple of years. The patient is DNR/DNI. ER course was notable for: (1) U/A positive (Nitrite+, Leuk Est 2+, Protein 2+, Bacteria > 9k, Epithelial cells only 7) (2) ECG (Atrial flutter with variable AV block, 66bpm, QTc 408ms) (3) Recent Travel: PAST MEDICAL HISTORY: Diastolic CHF, AFib on Eliquis, CVA x3, DVT, Vascular Dementia, HTN, HLD, CAD, Hx of Renal Calculi, MRSA 2 years ago in a wound culture PAST SURGICAL HISTORY: Hysterectomy for a leiomyoma, Abdominal hernia Social History: Smokin packs/day. Quit > 50 years ago. Alcohol: Former drinker. 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) Allergies sulfamethoxazole [From Bactrim] Allergy (Verified 06/13/20 18:13) trimethoprim [From Bactrim] Allergy (Verified 06/13/20 18:13) HOME MEDICATIONS: Home Medications Medication Instructions Recorded Apixaban [Eliquis -] 2.5 mg PO BID #60 tablet 05/23/19 Aspirin [ASA -] 81 mg PO DAILY #30 tab.chew 05/23/19 Citalopram Hydrobromide [Celexa -] 10 mg PO DAILY #30 tablet 05/23/19 Furosemide [Lasix -] 20 mg PO DAILY #30 tablet 05/23/19 Metoprolol Succinate [Toprol XL -] 50 mg PO DAILY #30 tablet 05/23/19 hydrALAZINE HCL [Apresoline -] 25 mg PO BID MDD 2 09/16/19 Losartan Potassium [Cozaar -] 50 mg PO BID 06/13/20 Quetiapine Fumarate [Seroquel -] 12.5 mg PO BID 06/13/20 REVIEW OF SYSTEMS CONSTITUTIONAL: Sleepy, fatigued, and not responding to my questioning; ROS unable to be obtained from patient. Increased fatigue secondary to recent increase of dose of Quetiapine by patient's Neurologist per son. Absent: RESPIRATORY: Labored breathing for past couple of years per son. Absent: GASTROINTESTINAL: Recent diarrhea per son. Lack of appetite in the past day or two per the son. Possible recent 'side pain' (i.e. abdominal pain) per the son, although this may have been a miscommunication error and 'shoulder pain' was what was meant Absent: MUSCULOSKELETAL: Left shoulder pain per son. Son reports that 'side pain' may have been an error in communication, and 'shoulder pain' was what was meant Absent: NEUROLOGIC: Moments of ability to hold conversation with fatigue and lethargy in between those moments per the son Absent: No recent falls per son PSYCHIATRIC: Recent suicidial ideation and paranoia per son, which resolved with a recent increase of dose of Quetiapine by patient's Neurologist. Patient is completely dependent for all ADL's. Absent: PHYSICAL EXAMINATION Vital Signs - 24 hr 06/13/20 06/13/20 06/13/20 15:00 16:00 16:57 Temperature 97.8 F 99.1 F Pulse Rate 82 Pulse Rate [ 77 Radial] Respiratory 16 28 H Rate Blood Pressure 140/80 Blood Pressure 122/59 L [Right Arm] O2 Sat by Pulse 100 96 Oximetry (%) 06/13/20 06/13/20 06/13/20 18:00 19:00 20:30 Temperature Pulse Rate Pulse Rate [ 77 74 67 Radial] Respiratory 28 H 24 H 24 H Rate Blood Pressure Blood Pressure 120/73 102/56 L 102/53 L [Right Arm] O2 Sat by Pulse 96 95 96 Oximetry (%) 06/14/20 06/14/20 06/14/20 00:58 02:19 02:21 Temperature 98.5 F Pulse Rate Pulse Rate [ 64 69 Radial] Respiratory 23 H 23 H Rate Blood Pressure Blood Pressure 113/57 L 101/51 L [Right Arm] O2 Sat by Pulse 95 98 98 Oximetry (%) GENERAL: Fatigued and sleepy. Responsive to pain and opening eyes spontaneously but not talking when asked questions. HEAD: Normal with no signs of trauma. EYES: Pupils equal, round and reactive to light, extraocular movements intact. No lid lag. EARS, NOSE, THROAT: Ears normal, nares patent, oropharynx clear without exudates. Moist mucous membranes. NECK: Normal range of motion, supple without lymphadenopathy, JVD, or masses. LUNGS: Bilateral mild crackles. Tachypnea. Labored breathing. HEART: Irregular rate. Regular rhythm, normal S1 and S2. ABDOMEN: Soft, nontender, distended, normoactive bowel sounds, no guarding, no rebound, no masses. MUSCULOSKELETAL: Normal range of motion at all joints. No bony deformities or tenderness. UPPER EXTREMITIES: 2+ pulses, warm, well-perfused. No cyanosis. No clubbing. No peripheral edema. LOWER EXTREMITIES: 2+ pulses, warm, well-perfused. No calf tenderness. No peripheral edema. NEUROLOGICAL: Normal speech. Increased muscle tone. DTR's hard to obtain due to increased muscle tone. PSYCHIATRIC: Cooperative. Good eye contact. Appropriate mood and affect. SKIN: Warm, dry, normal turgor, no rashes or lesions noted, normal capillary refill. Bilateral bunions. Laboratory Results - last 24 hr 06/13/20 06/13/20 06/13/20 16:59 17:50 17:50 WBC 16.5 H RBC 4.08 Hgb 12.5 Hct 37.1 MCV 91.0 MCH 30.6 MCHC 33.6 RDW 13.5 Plt Count 198 MPV 8.0 Absolute Neuts (auto) 12.1 H Neutrophils % 73.4 Neutrophils % (Manual) 68.3 Band Neutrophils % 1.0 Lymphocytes % 7.4 L D Lymphocytes % (Manual) 9.9 Monocytes % 17.5 H D Monocytes % (Manual) 19 H Eosinophils % 1.4 D Eosinophils % (Manual) 1.0 Basophils % 0.3 Basophils % (Manual) 0.0 Myelocytes % (Man) 0 Promyelocytes % (Man) 0 Blast Cells % (Manual) 0 Nucleated RBC % 0 Metamyelocytes 0 Hypochromia 0 Platelet Estimate Normal Platelet Comment Present Polychromasia 1+ Poikilocytosis 1+ Anisocytosis 1+ Microcytosis 1+ Macrocytosis 0 Ovalocytes 1+ Sodium 139 Potassium 4.1 Chloride 105 Carbon Dioxide 27 Anion Gap 7 L BUN 24.6 H Creatinine 1.2 Est GFR (CKD-EPI)AfAm 47.06 Est GFR (CKD-EPI)NonAf 40.60 Random Glucose 97 Calcium 8.5 Total Bilirubin 1.1 H AST 21 ALT 20 Alkaline Phosphatase 98 Creatine Kinase 119 Troponin I < 0.02 Total Protein 6.3 L Albumin 3.1 L Urine Color Yellow Urine Appearance Cloudy Urine pH 5.0 Ur Specific [place] 1.016 Urine Protein 2+ H Urine Glucose (UA) Negative Urine Ketones Negative Urine Blood Negative Urine Nitrite Positive H Urine Bilirubin Negative Urine Urobilinogen 0.2 Ur Leukocyte Esterase 2+ H Urine WBC (Auto) 388 Urine RBC (Auto) 7 Urine Casts (Auto) 31 U Pathogenic Cast Auto Negative U Epithel Cells (Auto) 7 Urine Bacteria (Auto) >9,000 ASSESSMENT/PLAN: 85 year old female patient with past medical history that includes Diastolic CHF, AFib on Eliquis, CVA x3, DVT, Vascular Dementia, HTN, HLD, CAD, Hx of Renal Calculi, and MRSA 2 years ago in a wound culture, who presented to the emergency room from [facility] with left shoulder pain and intermittent confusion. 1. UTI - U/A positive for UTI - Urine Cx pending - ordered Ceftriaxone 1 gm daily - Gentle IV Hydration 2. Acute Encephalopathy on Chronic Dementia - Quetiapine held - ordered Ceftriaxone antibiotic to treat the UTI 3. Left shoulder pain possibly secondary to musculoskeletal etiology - X Ray 4. AFib on Eliquis - Home med Metoprolol continued - Home med Eliquis continued 5. Diastolic CHF - ECHO on 08/2018 showed EF 60% - ordered daily weights and I&O's 6. HTN - Home meds can be restarted when clinically appropriate #FEN - Normal Saline at 60. Monitoring Electrolytes. DVT PPx - Eliquis Patient is DNR/DNI per patient's signed documents brought from retirement (in patient's chart) Family Medical History Family History: Unable to Obtain Visit type - Medication Review Med list reviewed for High Risk Meds patients 65 and older: Yes - Emergency Visit Emergency Visit: Yes ED Registration Date: 06/13/20 Care time: The patient presented to the Emergency Department on the above date and was hospitalized for further evaluation of their emergent condition. - New Patient This patient is new to me today: Yes Date on this admission: 06/14/20 - Critical Care Critical Care patient: No ATTENDING PHYSICIAN STATEMENT I saw and evaluated the patient. I reviewed the resident's note and discussed the case with the resident. I agree with the resident's findings and plan as documented. SUBJECTIVE: OBJECTIVE: ASSESSMENT AND PLAN:
[2020-06-14 07:57] VITALS: BMI 23.8
[2020-06-14] MEDS ORDERED: CEFTRIAXONE 2 GM in DEXTROSE 5%-WATER 100 ML IVPB SCH (10:00)
[2020-06-14] MEDS ORDERED: FUROSEMIDE 20 MG TABLET (FP) PO SCH (10:00)
[2020-06-14] MEDS ORDERED: cefTRIAXone SODIUM 1 GM VIAL ONE (10:37)
[2020-06-14] MEDS ORDERED: DEXTROSE 5%-WATER - 50 ML IVPB ONE (10:37)
--- NOTE | 2020-06-14 10:43 | EKG ---
Test Reason : Blood Pressure : / mmHG Vent. Rate : 066 BPM Atrial Rate : 366 BPM P-R Int : 000 ms QRS Dur : 080 ms QT Int : 390 ms P-R-T Axes : 000 062 059 degrees QTc Int : 408 ms ATRIAL FIBRILLATION ABNORMAL ECG WHEN COMPARED WITH ECG OF 16-SEP-2019 14:15, VENT. RATE HAS DECREASED BY 42 BPM T WAVE VARIATION Confirmed by MARILOU GARCIA MD ([id number]) on 06/14/2020 10:42:53 AM Referred By: Confirmed By:MARILOU GARCIA MD
[2020-06-14] MEDS: CEFTRIAXONE 1 GM in DEXTROSE 5%-WATER - 50 ML IVPB SCH (10:44)
[2020-06-14] MEDS: APIXABAN 2.5 MG TABLET PO SCH ×2 (10:45→22:32)
[2020-06-14] MEDS: ASPIRIN 81 MG CHEWABLE TABLETS PO SCH (10:45)
[2020-06-14] MEDS: SODIUM CHLORIDE 1,000 ML IV SCH (10:52)
--- NOTE | 2020-06-14 13:49 | PN ---
Teaching Attending Note Name of Resident: Nallely Johnson ATTENDING PHYSICIAN STATEMENT I saw and evaluated the patient. I reviewed the resident's note and discussed the case with the resident. I agree with the resident's findings and plan as documented. SUBJECTIVE: Feeling well, no complaints. Reports resolution of dysuria and diarrhea. OBJECTIVE: Afebrile, hemodynamically Stable. Last Vital Signs Temp Pulse Resp BP Pulse Ox 98.2 F 73 20 139/71 96 06/14/20 09:00 06/14/20 09:00 06/14/20 09:00 06/14/20 09:00 06/14/20 09:00 HEENT - Atraumatic, Normocephalic. Heart - S1, S2, SM Lungs - clear to auscultation Abdomen - Soft, non-tender. Bowel Sounds normal Extremities -no edema, no calf tenderness. Toe deformities bilaterally. Neuro - AAO x 3. Tone/Power normal. Laboratory Results - last 24 hr 06/13/20 06/13/20 06/13/20 16:59 17:10 17:50 WBC 16.5 H RBC 4.08 Hgb 12.5 Hct 37.1 MCV 91.0 MCH 30.6 MCHC 33.6 RDW 13.5 Plt Count 198 MPV 8.0 Absolute Neuts (auto) 12.1 H Neutrophils % 73.4 Neutrophils % (Manual) 68.3 Band Neutrophils % 1.0 Lymphocytes % 7.4 L D Lymphocytes % (Manual) 9.9 Monocytes % 17.5 H D Monocytes % (Manual) 19 H Eosinophils % 1.4 D Eosinophils % (Manual) 1.0 Basophils % 0.3 Basophils % (Manual) 0.0 Myelocytes % (Man) 0 Promyelocytes % (Man) 0 Blast Cells % (Manual) 0 Nucleated RBC % 0 Metamyelocytes 0 Hypochromia 0 Platelet Estimate Normal Platelet Comment Present Polychromasia 1+ Poikilocytosis 1+ Anisocytosis 1+ Microcytosis 1+ Macrocytosis 0 Ovalocytes 1+ Sodium Potassium Chloride Carbon Dioxide Anion Gap BUN Creatinine Est GFR (CKD-EPI)AfAm Est GFR (CKD-EPI)NonAf Random Glucose Calcium Total Bilirubin AST ALT Alkaline Phosphatase Creatine Kinase Troponin I Total Protein Albumin Urine Color Yellow Urine Appearance Cloudy Urine pH 5.0 Ur Specific [place] 1.016 Urine Protein 2+ H Urine Glucose (UA) Negative Urine Ketones Negative Urine Blood Negative Urine Nitrite Positive H Urine Bilirubin Negative Urine Urobilinogen 0.2 Ur Leukocyte Esterase 2+ H Urine WBC (Auto) 388 Urine RBC (Auto) 7 Urine Casts (Auto) 31 U Pathogenic Cast Auto Negative U Epithel Cells (Auto) 7 Urine Bacteria (Auto) >9,000 COVID-19 (ALIYA) Not detected 06/13/20 17:50 WBC RBC Hgb Hct MCV MCH MCHC RDW Plt Count MPV Absolute Neuts (auto) Neutrophils % Neutrophils % (Manual) Band Neutrophils % Lymphocytes % Lymphocytes % (Manual) Monocytes % Monocytes % (Manual) Eosinophils % Eosinophils % (Manual) Basophils % Basophils % (Manual) Myelocytes % (Man) Promyelocytes % (Man) Blast Cells % (Manual) Nucleated RBC % Metamyelocytes Hypochromia Platelet Estimate Platelet Comment Polychromasia Poikilocytosis Anisocytosis Microcytosis Macrocytosis Ovalocytes Sodium 139 Potassium 4.1 Chloride 105 Carbon Dioxide 27 Anion Gap 7 L BUN 24.6 H Creatinine 1.2 Est GFR (CKD-EPI)AfAm 47.06 Est GFR (CKD-EPI)NonAf 40.60 Random Glucose 97 Calcium 8.5 Total Bilirubin 1.1 H AST 21 ALT 20 Alkaline Phosphatase 98 Creatine Kinase 119 Troponin I < 0.02 Total Protein 6.3 L Albumin 3.1 L Urine Color Urine Appearance Urine pH Ur Specific [place] Urine Protein Urine Glucose (UA) Urine Ketones Urine Blood Urine Nitrite Urine Bilirubin Urine Urobilinogen Ur Leukocyte Esterase Urine WBC (Auto) Urine RBC (Auto) Urine Casts (Auto) U Pathogenic Cast Auto U Epithel Cells (Auto) Urine Bacteria (Auto) COVID-19 (ALIYA) Current Medications Generic Name Dose Route Start Last Admin Trade Name Freq PRN Reason Stop Dose Admin Apixaban 2.5 mg 06/13/20 22:00 06/14/20 10:45 Eliquis - PO 2.5 mg BID SHAHRAM Administration Aspirin 81 mg 06/14/20 10:00 06/14/20 10:45 Asa - PO 81 mg DAILY SHAHRAM Administration Sodium Chloride 1,000 mls @ 60 mls/hr 06/13/20 22:32 06/14/20 10:52 Normal Saline - IV 60 mls/hr ASDIR SHAHRAM Administration Ceftriaxone Sodium 1 gm/ 50 mls @ 100 mls/hr 06/14/20 10:00 06/14/20 10:44 Dextrose IVPB 100 mls/hr DAILY SHAHRAM Administration Metoprolol Succinate 50 mg 06/14/20 10:00 06/14/20 10:45 Toprol Xl - PO 50 mg DAILY SHAHRAM Administration Home Medications Medication Instructions Recorded Apixaban [Eliquis -] 2.5 mg PO BID #60 tablet 05/23/19 Aspirin [ASA -] 81 mg PO DAILY #30 tab.chew 05/23/19 Citalopram Hydrobromide [Celexa -] 10 mg PO DAILY #30 tablet 05/23/19 Furosemide [Lasix -] 20 mg PO DAILY #30 tablet 05/23/19 Metoprolol Succinate [Toprol XL -] 50 mg PO DAILY #30 tablet 05/23/19 hydrALAZINE HCL [Apresoline -] 25 mg PO BID MDD 2 09/16/19 Losartan Potassium [Cozaar -] 50 mg PO BID 06/13/20 Quetiapine Fumarate [Seroquel -] 12.5 mg PO BID 06/13/20 ASSESSMENT/PLAN: 85 year old female with history of Chronic Diastolic CHF, Atrial Fibrillation on Eliquis, CVA x 3, Hx DVT on Eliquis, Vascular Dementia, HTN, HLD, CAD, Hx of Renal Calculi, and Hx MRSA 2 years ago in a wound culture, presented from [facility] with left shoulder pain and intermittent confusion. She also reports diarrhea and dysuria, oth of which have resolved. 1. Acute Metabolic Encephalopathy and Sepsis secondary to likely UTI Leukocytosis, Tachypnea, confusion, likely UTI supportive of Sepsis UA suggestive of UTI - Empiric Ceftriaxone pending Urine Culture results AMS resolved. baseline Dementia but currently AAO x 3. Afebrile, Hemodynamically Stable. 2. Diarrhea - appears to have resolved. No abdominal tenderness. If any further diarrhea, send for Cdiff/Stool Cx. 3. L Shoulder Pain. XRay - no fracture or dislocation. For Ortho eval as pout- patient. HTN 4. HTN - Resume Losartan, Metoprolol. Hydralazine held for now until medications are confirmed with PCP. 5. Hx CVA x 3 - on ASA and Apixaban. 6. Atrial Fibrillation - on Metoprolol and Eliquis 7. Hx DVT - on Eliquis. 8. Chronic Diastolic CHF - stable, no evidence of acute decompensation. Lasix held for now. 9. Dementia - AAO x 3. Continue Celexa, Quetiapine 10. HLD - Does not appear to be on Statin, likely due to advanced age. Will confirm with PCP. DVT Px - on Eliquis DNR/DNI
[2020-06-14 13:55] LABS: BASO % 0.3 % (0-2.0); EOS % 2.2 % (0-4.5); HEMATOCRIT 35.8 % (32.4-45.2); HEMOGLOBIN 11.9 GM/dL (10.7-15.3); LYMPH % 5.1 % (8-40); MCH 29.9 pg (25.7-33.7); MCHC 33.2 g/dl (32.0-36.0); MEAN PLT VOLUME 8.2 fl (7.5-11.1); MONO % 12.8 % (3.8-10.2); NEUT % 79.6 % (42.8-82.8); PLATELET COUNT 205 K/MM3 (134-434); RBC 3.98 M/mm3 (3.60-5.2); RDW 13.2 % (11.6-15.6); WHITE BLOOD COUNT 13.3 K/mm3 (4.0-10.0)
[2020-06-14 14:22] LABS: BLOOD UREA NITROGEN 28.5 mg/dL (7-18); CALCIUM 8.1 mg/dL (8.5-10.1); CREATININE 1.1 mg/dL (0.55-1.3); MAGNESIUM 2.5 mg/dL (1.8-2.4); POTASSIUM 3.9 mmol/L (3.5-5.1)
--- NOTE | 2020-06-14 16:53 | PN ---
Physical Exam: SUBJECTIVE: Patient seen and examined OBJECTIVE: Vital Signs Period Temp Pulse Resp BP Sys/Espinoza Pulse Ox Last 24 Hr 97.5 F-99.1 F 54-84 20-28 101-150/51-79 95-98 GENERAL: AAOx3, in no acute distress HEENT: NCAT, PERRLA, EOMI, sclera anicteric, conjunctiva clear, oropharynx clear w/o exudates. MMM. NECK: Normal ROM, supple, no lymphadenopathy, JVD, or masses LUNGS: CTABL no wheezes/ rhonchi/ rales. No distress, speaks in full sentences. No increased work of breathing. HEART: RRR, normal S1 S2, no M/R/G, peripheral pulses 2+ and equal b/l ABDOMEN: Soft, non-tender, + BS. No guarding or rebound. MSK: ROM WNL, NO CVA tenderness EXTREMITIES: Normal inspection. No peripheral edema. No clubbing or cyanosis. Toe deformities noticed b/l NEUROLOGICAL: CN II-XII intact. Normal speech, gait not observed, no focal sensorimotor deficits. PSYCH: Normal mood, normal affect. SKIN: Warm, Dry, normal turgor, no rashes or lesions noted Laboratory Results - last 24 hr 06/13/20 06/13/20 06/13/20 16:59 17:10 17:50 WBC 16.5 H RBC 4.08 Hgb 12.5 Hct 37.1 MCV 91.0 MCH 30.6 MCHC 33.6 RDW 13.5 Plt Count 198 MPV 8.0 Absolute Neuts (auto) 12.1 H Neutrophils % 73.4 Neutrophils % (Manual) 68.3 Band Neutrophils % 1.0 Lymphocytes % 7.4 L D Lymphocytes % (Manual) 9.9 Monocytes % 17.5 H D Monocytes % (Manual) 19 H Eosinophils % 1.4 D Eosinophils % (Manual) 1.0 Basophils % 0.3 Basophils % (Manual) 0.0 Myelocytes % (Man) 0 Promyelocytes % (Man) 0 Blast Cells % (Manual) 0 Nucleated RBC % 0 Metamyelocytes 0 Hypochromia 0 Platelet Estimate Normal Platelet Comment Present Polychromasia 1+ Poikilocytosis 1+ Anisocytosis 1+ Microcytosis 1+ Macrocytosis 0 Ovalocytes 1+ Sodium Potassium Chloride Carbon Dioxide Anion Gap BUN Creatinine Est GFR (CKD-EPI)AfAm Est GFR (CKD-EPI)NonAf Random Glucose Calcium Magnesium Total Bilirubin AST ALT Alkaline Phosphatase Creatine Kinase Troponin I Total Protein Albumin Urine Color Yellow Urine Appearance Cloudy Urine pH 5.0 Ur Specific [place] 1.016 Urine Protein 2+ H Urine Glucose (UA) Negative Urine Ketones Negative Urine Blood Negative Urine Nitrite Positive H Urine Bilirubin Negative Urine Urobilinogen 0.2 Ur Leukocyte Esterase 2+ H Urine WBC (Auto) 388 Urine RBC (Auto) 7 Urine Casts (Auto) 31 U Pathogenic Cast Auto Negative U Epithel Cells (Auto) 7 Urine Bacteria (Auto) >9,000 COVID-19 (ALIYA) Not detected 06/13/20 06/14/20 06/14/20 17:50 13:24 13:24 WBC 13.3 H RBC 3.98 Hgb 11.9 Hct 35.8 MCV 90.0 MCH 29.9 MCHC 33.2 RDW 13.2 Plt Count 205 MPV 8.2 Absolute Neuts (auto) 10.5 H Neutrophils % 79.6 Neutrophils % (Manual) Band Neutrophils % Lymphocytes % 5.1 L D Lymphocytes % (Manual) Monocytes % 12.8 H Monocytes % (Manual) Eosinophils % 2.2 Eosinophils % (Manual) Basophils % 0.3 Basophils % (Manual) Myelocytes % (Man) Promyelocytes % (Man) Blast Cells % (Manual) Nucleated RBC % 0 Metamyelocytes Hypochromia Platelet Estimate Platelet Comment Polychromasia Poikilocytosis Anisocytosis Microcytosis Macrocytosis Ovalocytes Sodium 139 140 Potassium 4.1 3.9 Chloride 105 108 H Carbon Dioxide 27 24 Anion Gap 7 L 8 BUN 24.6 H 28.5 H Creatinine 1.2 1.1 Est GFR (CKD-EPI)AfAm 47.06 52.28 Est GFR (CKD-EPI)NonAf 40.60 45.11 Random Glucose 97 215 H Calcium 8.5 8.1 L Magnesium 2.5 H Total Bilirubin 1.1 H AST 21 ALT 20 Alkaline Phosphatase 98 Creatine Kinase 119 Troponin I < 0.02 Total Protein 6.3 L Albumin 3.1 L Urine Color Urine Appearance Urine pH Ur Specific [place] Urine Protein Urine Glucose (UA) Urine Ketones Urine Blood Urine Nitrite Urine Bilirubin Urine Urobilinogen Ur Leukocyte Esterase Urine WBC (Auto) Urine RBC (Auto) Urine Casts (Auto) U Pathogenic Cast Auto U Epithel Cells (Auto) Urine Bacteria (Auto) COVID-19 (ALIYA) Active Medications Generic Name Dose Route Start Last Admin Trade Name Hipolito PRN Reason Stop Dose Admin Apixaban 2.5 mg 06/13/20 22:00 06/14/20 10:45 Eliquis - PO 2.5 mg BID SHAHRAM Administration Aspirin 81 mg 06/14/20 10:00 06/14/20 10:45 Asa - PO 81 mg DAILY SHAHRAM Administration Citalopram Hydrobromide 10 mg 06/15/20 10:00 Celexa - PO DAILY SHAHRAM Ceftriaxone Sodium 1 gm/ 50 mls @ 100 mls/hr 06/14/20 10:00 06/14/20 10:44 Dextrose IVPB 100 mls/hr DAILY SHAHRAM Administration Losartan Potassium 50 mg 06/14/20 22:00 Cozaar - PO BID SHAHRAM Metoprolol Succinate 50 mg 06/14/20 10:00 06/14/20 10:45 Toprol Xl - PO 50 mg DAILY SHAHRAM Administration Quetiapine Fumarate 12.5 mg 06/14/20 22:00 Seroquel - PO BID [facility] ASSESSMENT/PLAN: 85 year old female patient with past medical history that includes Diastolic CHF, AFib on Eliquis, CVA x3, DVT, Vascular Dementia, HTN, HLD, CAD, Hx of Renal Calculi, and MRSA 2 years ago in a wound culture, who presented to the emergency room from [facility] with left shoulder pain and intermittent confusion. #Sepsis (Leukocytosis 16.5, Tachypnea 24, AMS) #Acute metabolic Encephalopathy - Likely 2/2 to UTI - U/A suggestive of UTI, Urine Cx pending - Empiric treatment with Ceftriaxone - AMS resolved, patient is baseline dementia but currently AAOx3 - Afebrile #Left shoulder pain - Likely 2/2 musculoskeletal etiology - X Ray: no fracture or dislocation - will provide her with referral for Ortho eval as out-patient #Hx of AFib - Continue with Eliquis and Metoprolol #Hx of Chronic Diastolic CHF - ECHO on 08/2018 showed EF 60%, stable at this time - will f/u with weights and I&O's - holding Lasix for now #Hx of HTN - Continue with Losartan and Metoprolol - Holding Hydralazine #Hx of CVA #Hx of DVT - continue with ASA, Apixaban and eliquis #Hx of Dementia - Continue Celexa and Quetiapine FEN - No standing fluids - Continue to monitor Electrolytes - Diabetic/sodium Diet DVT PPx - On Eliquis Dispo Will continue to monitor in [place]. Patient is DNR/DNI. Visit type - Emergency Visit Emergency Visit: Yes ED Registration Date: 06/13/20 Care time: The patient presented to the Emergency Department on the above date and was hospitalized for further evaluation of their emergent condition. - New Patient This patient is new to me today: No - Critical Care Critical Care patient: No - Discharge Referral Referred to [facility] Med P.C[facility] No - Medication Review Med list reviewed for High Risk Meds patients 65 and older: Yes ATTENDING PHYSICIAN STATEMENT I saw and evaluated the patient. I reviewed the resident's note and discussed the case with the resident. I agree with the resident's findings and plan as documented. SUBJECTIVE: OBJECTIVE: ASSESSMENT AND PLAN:
[2020-06-14] MEDS ORDERED: ALBUTEROL SO4 2.5/IPRATROPIUM 0.5 INH SOL 3 ML VIAL.NEB. NEB ONE (21:35)
[2020-06-14] MEDS: QUEtiapine FUMARATE 25 MG TABLET PO SCH (22:32)
[2020-06-14] MEDS: LOSARTAN POTASSIUM 50 MG TABLET PO SCH (22:34)
[2020-06-14] MEDS ORDERED: MAGNESIUM SULF 50% (8.12 MEQ/2 ML-1 GM VIAL) IVPB ONE (22:55)
[2020-06-14] MEDS: ALBUTEROL SO4 2.5/IPRATROPIUM 0.5 INH SOL 3 ML VIAL.NEB. NEB SCH ×2 (23:00→23:15)
[2020-06-15 08:39] LABS: BASO % 0.4 % (0-2.0); EOS % 1.1 % (0-4.5); HEMATOCRIT 35.2 % (32.4-45.2); HEMOGLOBIN 11.6 GM/dL (10.7-15.3); LYMPH % 7.4 % (8-40); MCH 29.8 pg (25.7-33.7); MEAN CELL VOLUME 90.2 fl (80-96); MEAN PLT VOLUME 8.2 fl (7.5-11.1); MONO % 18.6 % (3.8-10.2); NEUT % 72.5 % (42.8-82.8); PLATELET COUNT 198 K/MM3 (134-434); RDW 13.4 % (11.6-15.6); WHITE BLOOD COUNT 11.2 K/mm3 (4.0-10.0)
[2020-06-15 09:04] LABS: ALBUMIN 2.6 g/dl (3.4-5.0); BILIRUBIN,TOTAL 0.8 mg/dL (0.2-1); BLOOD UREA NITROGEN 23.5 mg/dL (7-18); CALCIUM 7.9 mg/dL (8.5-10.1); MAGNESIUM 2.7 mg/dL (1.8-2.4); PHOSPHOROUS 4.1 mg/dL (2.5-4.9); POTASSIUM 4.4 mmol/L (3.5-5.1); TOT PROT 5.3 g/dl (6.4-8.2)
[2020-06-15] MEDS ORDERED: cefTRIAXone SODIUM 1 GM VIAL ONE (09:40)
[2020-06-15] MEDS ORDERED: DEXTROSE 5%-WATER - 50 ML IVPB ONE (09:41)
[2020-06-15] MEDS: CEFTRIAXONE 1 GM in DEXTROSE 5%-WATER - 50 ML IVPB SCH (09:42)
[2020-06-15] MEDS: APIXABAN 2.5 MG TABLET PO SCH (09:42)
[2020-06-15] MEDS: LOSARTAN POTASSIUM 50 MG TABLET PO SCH (09:42)
[2020-06-15] MEDS: ASPIRIN 81 MG CHEWABLE TABLETS PO SCH (09:42)
[2020-06-15] MEDS: QUEtiapine FUMARATE 25 MG TABLET PO SCH (09:42)
[2020-06-15] MEDS ORDERED: CITALOPRAM HYDROBROMIDE 10 MG TABLET PO SCH (10:00)
--- NOTE | 2020-06-15 14:18 | PN ---
Teaching Attending Note Name of Resident: Nallely Johnson ATTENDING PHYSICIAN STATEMENT I saw and evaluated the patient. I reviewed the resident's note and discussed the case with the resident. I agree with the resident's findings and plan as documented. SUBJECTIVE: pt seen and examined OBJECTIVE: Last Vital Signs Temp Pulse Resp BP Pulse Ox 96.8 F L 95 H 20 147/61 96 06/15/20 09:00 06/15/20 09:00 06/15/20 09:00 06/15/20 09:00 06/15/20 09:00 GENERAL: Awake, alert, and fully oriented, in no acute distress. HEAD: Normal with no signs of trauma. EYES: Pupils equal, round and reactive to light, sclera anicteric, conjunctiva clear. LUNGS: Breath sounds equal, clear to auscultation bilaterally. No wheezes, and no crackles. No accessory muscle use. HEART: Regular rate and rhythm, normal S1 and S2, systolic murmur 2/6 at LSB ABDOMEN: Soft, nontender, not distended, paraumbilical hernia, fat containing MUSCULOSKELETAL: Normal range of motion at all joints. No bony deformities or tenderness. No CVA tenderness. UPPER EXTREMITIES: 2+ pulses, warm, well-perfused. No cyanosis. No clubbing. No peripheral edema. LOWER EXTREMITIES: 2+ pulses, warm, well-perfused. No calf tenderness. No peripheral edema. NEUROLOGICAL: Cranial nerves II-XII intact. Normal speech. Laboratory Last Values WBC 11.2 K/mm3 (4.0-10.0) H 06/15/20 08:10 RBC 3.90 M/mm3 (3.60-5.2) 06/15/20 08:10 Hgb 11.6 GM/dL (10.7-15.3) 06/15/20 08:10 Hct 35.2 % (32.4-45.2) 06/15/20 08:10 MCV 90.2 fl (80-96) 06/15/20 08:10 MCH 29.8 pg (25.7-33.7) 06/15/20 08:10 MCHC 33.0 g/dl (32.0-36.0) 06/15/20 08:10 RDW 13.4 % (11.6-15.6) 06/15/20 08:10 Plt Count 198 K/MM3 (134-434) 06/15/20 08:10 MPV 8.2 fl (7.5-11.1) 06/15/20 08:10 Absolute Neuts (auto) 8.1 K/mm3 (1.5-8.0) H 06/15/20 08:10 Neutrophils % 72.5 % (42.8-82.8) 06/15/20 08:10 Neutrophils % (Manual) 68.3 % (42.8-82.8) 06/13/20 17:50 Band Neutrophils % 1.0 % 06/13/20 17:50 Lymphocytes % 7.4 % (8-40) L D 06/15/20 08:10 Lymphocytes % (Manual) 9.9 % (8-40) 06/13/20 17:50 Monocytes % 18.6 % (3.8-10.2) H 06/15/20 08:10 Monocytes % (Manual) 19 % (3.8-10.2) H 06/13/20 17:50 Eosinophils % 1.1 % (0-4.5) 06/15/20 08:10 Eosinophils % (Manual) 1.0 % (0-4.5) 06/13/20 17:50 Basophils % 0.4 % (0-2.0) 06/15/20 08:10 Basophils % (Manual) 0.0 % (0-2.0) 06/13/20 17:50 Myelocytes % (Man) 0 % (0-2) 06/13/20 17:50 Promyelocytes % (Man) 0 % (0-2) 06/13/20 17:50 Blast Cells % (Manual) 0 % (0-0) 06/13/20 17:50 Nucleated RBC % 0 % (0-0) 06/15/20 08:10 Metamyelocytes 0 % (0-2) 06/13/20 17:50 Hypochromia 0 06/13/20 17:50 Platelet Estimate Normal 06/13/20 17:50 Platelet Comment Present 06/13/20 17:50 Polychromasia 1+ 06/13/20 17:50 Poikilocytosis 1+ 06/13/20 17:50 Anisocytosis 1+ 06/13/20 17:50 Microcytosis 1+ 06/13/20 17:50 Macrocytosis 0 06/13/20 17:50 Ovalocytes 1+ 06/13/20 17:50 Sodium 141 mmol/L (136-145) 06/15/20 08:10 Potassium 4.4 mmol/L (3.5-5.1) 06/15/20 08:10 Chloride 108 mmol/L (98-107) H 06/15/20 08:10 Carbon Dioxide 27 mmol/L (21-32) 06/15/20 08:10 Anion Gap 5 MMOL/L (8-16) L 06/15/20 08:10 BUN 23.5 mg/dL (7-18) H 06/15/20 08:10 Creatinine 1.0 mg/dL (0.55-1.3) 06/15/20 08:10 Est GFR (CKD-EPI)AfAm 58.66 06/15/20 08:10 Est GFR (CKD-EPI)NonAf 50.61 06/15/20 08:10 Random Glucose 118 mg/dL (74-106) H 06/15/20 08:10 Calcium 7.9 mg/dL (8.5-10.1) L 06/15/20 08:10 Phosphorus 4.1 mg/dL (2.5-4.9) 06/15/20 08:10 Magnesium 2.7 mg/dL (1.8-2.4) H 06/15/20 08:10 Total Bilirubin 0.8 mg/dL (0.2-1) 06/15/20 08:10 AST 12 U/L (15-37) L 06/15/20 08:10 ALT 13 U/L (13-61) 06/15/20 08:10 Alkaline Phosphatase 80 U/L (45-117) 06/15/20 08:10 Creatine Kinase 119 U/L (26-192) 06/13/20 17:50 Troponin I < 0.02 ng/ml (0.00-0.05) 06/13/20 17:50 Total Protein 5.3 g/dl (6.4-8.2) L 06/15/20 08:10 Albumin 2.6 g/dl (3.4-5.0) L 06/15/20 08:10 Urine Color Yellow 06/13/20 16:59 Urine Appearance Cloudy 06/13/20 16:59 Urine pH 5.0 (5.0-8.0) 06/13/20 16:59 Ur Specific [place] 1.016 (1.010-1.035) 06/13/20 16:59 Urine Protein 2+ (NEGATIVE) H 06/13/20 16:59 Urine Glucose (UA) Negative (NEGATIVE) 06/13/20 16:59 Urine Ketones Negative (NEGATIVE) 06/13/20 16:59 Urine Blood Negative (NEGATIVE) 06/13/20 16:59 Urine Nitrite Positive (NEGATIVE) H 06/13/20 16:59 Urine Bilirubin Negative (NEGATIVE) 06/13/20 16:59 Urine Urobilinogen 0.2 mg/dL (0.2-1.0) 06/13/20 16:59 Ur Leukocyte Esterase 2+ (NEGATIVE) H 06/13/20 16:59 Urine WBC (Auto) 388 /uL (0-25.8) 06/13/20 16:59 Urine RBC (Auto) 7 /uL (0-23.9) 06/13/20 16:59 Urine Casts (Auto) 31 /uL (0-3.1) 06/13/20 16:59 U Pathogenic Cast Auto Negative /lpf (NEGATIVE) 06/13/20 16:59 U Epithel Cells (Auto) 7 /uL (0-25.1) 06/13/20 16:59 Urine Bacteria (Auto) >9,000 /uL (0-1359) 06/13/20 16:59 COVID-19 (ALIYA) Not detected (Not Detected) 06/13/20 17:10 Active Medications Apixaban (Eliquis -) 2.5 mg PO BID REPLACED BY [facility] Last Admin: 06/15/20 09:42 Dose: 2.5 mg Documented by: Aspirin (Asa -) 81 mg PO DAILY REPLACED BY [facility] Last Admin: 06/15/20 09:42 Dose: 81 mg Documented by: Citalopram Hydrobromide (Celexa -) 10 mg PO DAILY REPLACED BY [facility] Last Admin: 06/15/20 09:42 Dose: 10 mg Documented by: Ceftriaxone Sodium 1 gm/ (Dextrose) 50 mls @ 100 mls/hr IVPB DAILY REPLACED BY [facility] Last Admin: 06/15/20 09:42 Dose: 100 mls/hr Documented by: Losartan Potassium (Cozaar -) 50 mg PO BID REPLACED BY [facility] Last Admin: 09/15/20 09:42 Dose: 50 mg Documented by: Metoprolol Succinate (Toprol Xl -) 50 mg PO DAILY REPLACED BY [facility] Last Admin: 06/15/20 09:42 Dose: 50 mg Documented by: Quetiapine Fumarate (Seroquel -) 12.5 mg PO BID REPLACED BY [facility] Last Admin: 06/15/20 09:42 Dose: 12.5 mg Documented by: ASSESSMENT AND PLAN: 85 year old female with history of Chronic Diastolic CHF, Atrial Fibrillation on Eliquis, CVA x 3, Hx DVT on Eliquis, Vascular Dementia, HTN, HLD, CAD, Hx of Renal Calculi, and Hx MRSA 2 years ago in a wound culture, presented from [facility] with left shoulder pain and intermittent confusion. She also reports diarrhea and dysuria, oth of which have resolved. # Acute Metabolic Encephalopathy and Sepsis secondary to UTI resolved baseline Dementia but currently AAO x 3. Afebrile, Hemodynamically Stable, WBC trending down can deescalate Abx in AM Discharge planning L Shoulder Pain. For Ortho eval as outpatient. HTN CVA x 3 AFib on AC Hx DVT HFpEF Dementia HLD DVT Px - on Eliquis DNR/DNI
[2020-06-15 14:26] VITALS: BP 124/54; PULSE 104; TEMP 97.4
--- NOTE | 2020-06-15 14:42 | PN ---
Physical Exam: SUBJECTIVE: Patient seen and examined at bedside, reports that she had some wheezing overnight, which resolved with the medications. Denies any fever, chills, nausea, vomiting OBJECTIVE: Vital Signs Period Temp Pulse Resp BP Sys/Espinoza Pulse Ox Last 24 Hr 96.8 F-98.5 F 90-104 20-20 124-162/54-93 96-98 GENERAL: AAOx3, in no acute distress HEENT: NCAT, PERRLA, EOMI, sclera anicteric, conjunctiva clear, oropharynx clear w/o exudates. MMM. NECK: Normal ROM, supple, no lymphadenopathy, JVD, or masses LUNGS: CTABL no wheezes/ rhonchi/ rales. No distress, speaks in full sentences. No increased work of breathing. HEART: RRR, normal S1 S2, no M/R/G, peripheral pulses 2+ and equal b/l ABDOMEN: Soft, non-tender, + BS. No guarding or rebound. MSK: ROM WNL, NO CVA tenderness EXTREMITIES: Normal inspection. No peripheral edema. No clubbing or cyanosis. Toe deformities noticed b/l NEUROLOGICAL: CN II-XII intact. Normal speech, gait not observed, no focal sensorimotor deficits. PSYCH: Normal mood, normal affect. SKIN: Warm, Dry, normal turgor, no rashes or lesions noted Laboratory Results - last 24 hr 06/15/20 06/15/20 08:10 08:10 WBC 11.2 H RBC 3.90 Hgb 11.6 Hct 35.2 MCV 90.2 MCH 29.8 MCHC 33.0 RDW 13.4 Plt Count 198 MPV 8.2 Absolute Neuts (auto) 8.1 H Neutrophils % 72.5 Lymphocytes % 7.4 L D Monocytes % 18.6 H Eosinophils % 1.1 Basophils % 0.4 Nucleated RBC % 0 Sodium 141 Potassium 4.4 Chloride 108 H Carbon Dioxide 27 Anion Gap 5 L BUN 23.5 H Creatinine 1.0 Est GFR (CKD-EPI)AfAm 58.66 Est GFR (CKD-EPI)NonAf 50.61 Random Glucose 118 H Calcium 7.9 L Phosphorus 4.1 Magnesium 2.7 H Total Bilirubin 0.8 AST 12 L ALT 13 Alkaline Phosphatase 80 Total Protein 5.3 L Albumin 2.6 L Active Medications Generic Name Dose Route Start Last Admin Trade Name Freq PRN Reason Stop Dose Admin Apixaban 2.5 mg 06/13/20 22:00 06/15/20 09:42 Eliquis - PO 2.5 mg BID SHAHRAM Administration Aspirin 81 mg 06/14/20 10:00 06/15/20 09:42 Asa - PO 81 mg DAILY SHAHRAM Administration Citalopram Hydrobromide 10 mg 06/15/20 10:00 06/15/20 09:42 Celexa - PO 10 mg DAILY SHAHRAM Administration Ceftriaxone Sodium 1 gm/ 50 mls @ 100 mls/hr 06/14/20 10:00 06/15/20 09:42 Dextrose IVPB 100 mls/hr DAILY SHAHRAM Administration Losartan Potassium 50 mg 06/14/20 22:00 06/15/20 09:42 Cozaar - PO 50 mg BID SHAHRAM Administration Metoprolol Succinate 50 mg 06/14/20 10:00 06/15/20 09:42 Toprol Xl - PO 50 mg DAILY SHAHRAM Administration Quetiapine Fumarate 12.5 mg 06/14/20 22:00 06/15/20 09:42 Seroquel - PO 12.5 mg BID SHAHRAM Administration ASSESSMENT/PLAN: 85 year old female patient with past medical history that includes Diastolic CHF, AFib on Eliquis, CVA x3, DVT, Vascular Dementia, HTN, HLD, CAD, Hx of Renal Calculi, and MRSA 2 years ago in a wound culture, who presented to the emergency room from [facility] with left shoulder pain and intermittent confusion. #Sepsis (Leukocytosis 16.5, Tachypnea 24, AMS) #Acute metabolic Encephalopathy - Likely 2/2 to UTI - U/A suggestive of UTI, Urine Cx pending - Empiric treatment with Ceftriaxone - AMS resolved, patient is baseline dementia but currently AAOx3 - Leukocytosis improved from 16.5 to 11.2 - Afebrile and hemodynamically stable #Left shoulder pain - Likely 2/2 musculoskeletal etiology - X Ray: no fracture or dislocation - will provide her with referral for Ortho eval as out-patient #Hx of AFib - Continue with Eliquis and Metoprolol #Hx of Chronic Diastolic CHF - ECHO on 08/2018 showed EF 60%, stable at this time - will f/u with weights and I&O's - holding Lasix for now #Hx of HTN - Continue with Losartan and Metoprolol - Holding Hydralazine #Hx of CVA #Hx of DVT - continue with ASA, Apixaban and eliquis #Hx of Dementia - Continue Celexa and Quetiapine FEN - No standing fluids - Continue to monitor Electrolytes - Diabetic/sodium Diet DVT PPx - On Eliquis Dispo Will continue to monitor in [place]. Patient is DNR/DNI. Pending SNF placement/Social service Visit type - Emergency Visit Emergency Visit: Yes ED Registration Date: 06/13/20 Care time: The patient presented to the Emergency Department on the above date and was hospitalized for further evaluation of their emergent condition. - New Patient This patient is new to me today: No - Critical Care Critical Care patient: No - Discharge Referral Referred to [facility] Med [facility] No - Medication Review Med list reviewed for High Risk Meds patients 65 and older: Yes ATTENDING PHYSICIAN STATEMENT I saw and evaluated the patient. I reviewed the resident's note and discussed the case with the resident. I agree with the resident's findings and plan as documented. SUBJECTIVE: OBJECTIVE: ASSESSMENT AND PLAN:
--- NOTE | 2020-06-15 16:27 | DS ---
Physical Exam: SUBJECTIVE: Patient seen and examined at bedside, reports that she had some wheezing overnight, which resolved with the medications. Denies any fever, chills, nausea, vomiting OBJECTIVE: Vital Signs Period Temp Pulse Resp BP Sys/Espinoza Pulse Ox Last 24 Hr 96.8 F-98.5 F 90-104 20-20 124-162/54-93 96-98 PHYSICAL EXAM GENERAL: AAOx3, in no acute distress HEENT: NCAT, PERRLA, EOMI, sclera anicteric, conjunctiva clear, oropharynx clear w/o exudates. MMM. NECK: Normal ROM, supple, no lymphadenopathy, JVD, or masses LUNGS: CTABL no wheezes/ rhonchi/ rales. No distress, speaks in full sentences. No increased work of breathing. HEART: RRR, normal S1 S2, no M/R/G, peripheral pulses 2+ and equal b/l ABDOMEN: Soft, non-tender, + BS. No guarding or rebound. MSK: ROM WNL, NO CVA tenderness EXTREMITIES: Normal inspection. No peripheral edema. No clubbing or cyanosis. Toe deformities noticed b/l NEUROLOGICAL: CN II-XII intact. Normal speech, gait not observed, no focal sensorimotor deficits. PSYCH: Normal mood, normal affect. SKIN: Warm, Dry, normal turgor, no rashes or lesions noted LABS Laboratory Results - last 24 hr 06/15/20 06/15/20 08:10 08:10 WBC 11.2 H RBC 3.90 Hgb 11.6 Hct 35.2 MCV 90.2 MCH 29.8 MCHC 33.0 RDW 13.4 Plt Count 198 MPV 8.2 Absolute Neuts (auto) 8.1 H Neutrophils % 72.5 Lymphocytes % 7.4 L D Monocytes % 18.6 H Eosinophils % 1.1 Basophils % 0.4 Nucleated RBC % 0 Sodium 141 Potassium 4.4 Chloride 108 H Carbon Dioxide 27 Anion Gap 5 L BUN 23.5 H Creatinine 1.0 Est GFR (CKD-EPI)AfAm 58.66 Est GFR (CKD-EPI)NonAf 50.61 Random Glucose 118 H Calcium 7.9 L Phosphorus 4.1 Magnesium 2.7 H Total Bilirubin 0.8 AST 12 L ALT 13 Alkaline Phosphatase 80 Total Protein 5.3 L Albumin 2.6 L HOSPITAL COURSE: Date of Admission:06/13/20 85 year old female patient with past medical history that includes Diastolic CHF, AFib on Eliquis, CVA x3, DVT, Vascular Dementia, HTN, HLD, CAD, Hx of Renal Calculi, and MRSA 2 years ago in a wound culture, who presented to the emergency room from [facility] with left shoulder pain and intermittent confusion, admitted for Sepsis (Leukocytosis 16.5, Tachypnea 24, AMS)/Acute metabolic Encephalopathy 2/2 to UTI. Urine Cx showed Lactose fermenting neg Bacilli, treated empirically with Ceftriaxone. During the hospital course, AMS resolved, patient is baseline dementia but currently AAOx3. Leukocytosis improved and she remained Afebrile and hemodynamically stable. She also complained of Left shoulder pain on admission. X Ray revealed no fracture or dislocation. Likely 2/2 musculoskeletal etiology. Provided her with referral for Ortho eval as out-patient. She is clinically stable for discharge. Date of Discharge: 06/15/20 Minutes to complete discharge: 36 Discharge Summary Problems reviewed: Yes Reason For Visit: URINARY TRACT INFECTION,SHORTNESS OF BREATH Current Active Problems UTI (urinary tract infection) (Acute) Condition: Good - Instructions Diet, Activity, Other Instructions: YOUR VISIT: You were admitted to the hospital for a infection of your Urinary tract and Left shoulder pain. You were treated with antibiotics for the infection. Xray of your left shoulder did not show any fractures or dislocations. You will need out patient evaluation with ortho for your left shoulder pain. MEDICATIONS: Please START taking Bactrim twice a day for one more week Please do not take your hydralazine Continue to take all other home medications as prescribed FOLLOW UPS: Please follow up with your Orthopedic Doctor, , within 2 week for further evaluation and management of your left shoulder pain Please visit your primary care provider within 2 weeks to follow up with your labwork and hospital visit. ADDITIONAL INSTRUCTIONS: You are being discharged to your home. Please return to the Emergency department if you are experiencing worsening or concerning symptoms. Referrals: Gregg Dudley MD [Staff Physician] - Disposition: HOME - Home Medications Comprehensive Discharge Medication List: Ambulatory Orders Apixaban [Eliquis -] 2.5 mg PO BID #60 tablet 05/23/19 Aspirin [ASA -] 81 mg PO DAILY #30 tab.chew 05/23/19 Citalopram Hydrobromide [Celexa -] 10 mg PO DAILY #30 tablet 05/23/19 Furosemide [Lasix -] 20 mg PO DAILY #30 tablet 05/23/19 Metoprolol Succinate [Toprol XL -] 50 mg PO DAILY #30 tablet 05/23/19 Losartan Potassium [Cozaar -] 50 mg PO BID 06/13/20 Quetiapine Fumarate [Seroquel -] 12.5 mg PO BID 06/13/20 Sulfamethoxazole/Trimethoprim [Bactrim Ds -] 1 tab PO BID #14 tablet 06/15/20 This patient is new to me today: No Emergency Visit: Yes ED Registration Date: 06/13/20 Care time: The patient presented to the Emergency Department on the above date and was hospitalized for further evaluation of their emergent condition. Critical Care patient: No - Discharge Referral Referred to [facility] Med P.C.: No ATTENDING PHYSICIAN STATEMENT I saw and evaluated the patient. I reviewed the resident's note and discussed the case with the resident. I agree with the resident's findings and plan as documented. SUBJECTIVE: OBJECTIVE: ASSESSMENT AND PLAN:
--- NOTE | 2020-06-16 15:00 | PN ---
Progress Note (short form) - Note Progress Note: made aware of sulfa allergy. reviewed sensitivities. Abx changed to macrobid x 7 days. spoke with [place] [facility] on file.
== END 2020-06-15 19:50 | disposition home or self-care (01) | DRG 871 ==
LOC: JER 14:54 → JERBED 18:13 → J6S 06-14 07:31
PROVIDERS: ADMIT Internal Medicine; ATTEND Student in an Organized Health Care Education/Training Program
DX: A41.89 Other specified sepsis (principal); G93.41 Metabolic encephalopathy; N39.0 Urinary tract infection, site not specified; I50.32 Chronic diastolic (congestive) heart failure; I48.92 Unspecified atrial flutter; I48.91 Unspecified atrial fibrillation; E78.5 Hyperlipidemia, unspecified; I10 Essential (primary) hypertension; I44.30 Unspecified atrioventricular block; I25.10 Atherosclerotic heart disease of native coronary artery without angina pectoris; F01.50 Vascular dementia, unspecified severity, without behavioral disturbance, psychotic disturbance, mood disturbance, and anxiety; R19.7 Diarrhea, unspecified; R41.82 Altered mental status, unspecified; D72.829 Elevated white blood cell count, unspecified; M25.512 Pain in left shoulder; I11.0 Hypertensive heart disease with heart failure; Z86.718 Personal history of other venous thrombosis and embolism; Z86.73 Personal history of transient ischemic attack (TIA), and cerebral infarction without residual deficits
CPT/HCPCS: 36415; 71045-TC-FY; 73030-TC-LT-FY; 80048; 80053; 81003; 82550; 83735; 84100; 84484; 85025; 87086; 87186; 93005; 93010; 94640; 97116-GP; 97162-GP; 99285-25; J0131; U0003

== ENCOUNTER 2020-10-21 13:31 | Inpatient (IN) | payer OTHER ==
[2020-10-21 17:46] LABS: BASO % 0.3 % (0-2.0); EOS % 2.1 % (0-4.5); HEMATOCRIT 42.1 % (32.4-45.2); HEMOGLOBIN 13.9 GM/dL (10.7-15.3); MCH 29.4 pg (25.7-33.7); MCHC 32.9 g/dl (32.0-36.0); MEAN CELL VOLUME 89.4 fl (80-96); MEAN PLT VOLUME 9.1 fl (7.5-11.1); MONO % 36.9 % (3.8-10.2); NEUT % 49.7 % (42.8-82.8); PLATELET COUNT 248 K/MM3 (134-434); RBC 4.71 M/mm3 (3.60-5.2); RDW 14.2 % (11.6-15.6); WHITE BLOOD COUNT 10.8 K/mm3 (4.0-10.0)
[2020-10-21 17:56] LABS: INR 1.32 (0.83-1.09); PROTHROMBIN TIME (PATIENT) 15.8 SEC (9.7-13.0)
[2020-10-21 17:59] LABS: ACTIVATED PTT 33.3 SECONDS (25.2-36.5)
[2020-10-21 18:05] LABS: POTASSIUM 4.6 mmol/L (3.5-5.1)
[2020-10-21 18:07] LABS: ALBUMIN 3.3 g/dl (3.4-5.0); BLOOD UREA NITROGEN 48.3 mg/dL (7-18); CALCIUM 8.4 mg/dL (8.5-10.1)
[2020-10-21 18:10] LABS: CREATININE 2.3 mg/dL (0.55-1.3)
[2020-10-21 18:12] LABS: BILIRUBIN,TOTAL 0.4 mg/dL (0.2-1); TOT PROT 6.4 g/dl (6.4-8.2)
[2020-10-21 18:58] LABS: ANISOCYTOSIS 1+; MACROCYTOSIS 0; OVALOCYTE 1+; PLATELET ESTIMATE NORMAL
[2020-10-21] MEDS ORDERED: DEXAMETHASONE SOD PHOSPHATE 4 MG/1 ML VIAL IVPUSH ONE (19:24)
[2020-10-21] MEDS ORDERED: DEXAMETHASONE SOD PHOSPHATE 10 MG/1 ML VIAL ONE (19:28)
[2020-10-21] MEDS ORDERED: SODIUM CHLORIDE 1,000 ML IV SCH (21:00)
[2020-10-21] MEDS ORDERED: HEPARIN NA (PORCINE) 5,000 UNITS/ML 1ML VIAL SQ SCH (22:00)
[2020-10-22] MEDS ORDERED: ASPIRIN 81 MG CHEWABLE TABLETS ONE (08:43)
[2020-10-22] MEDS ORDERED: APIXABAN 2.5 MG TABLET ONE (08:44)
[2020-10-22] MEDS ORDERED: hydrALAZINE HCL 25 MG TABLET (FP) ONE (08:44)
[2020-10-22] MEDS ORDERED: CITALOPRAM HYDROBROMIDE 10 MG TABLET ONE (08:44)
[2020-10-22 08:55] LABS: BASO % 0.1 % (0-2.0); HEMATOCRIT 27.5 % (32.4-45.2); HEMOGLOBIN 9.3 GM/dL (10.7-15.3); LYMPH % 10.2 % (8-40); MCHC 33.7 g/dl (32.0-36.0); MEAN PLT VOLUME 8.3 fl (7.5-11.1); MONO % 8.7 % (3.8-10.2); PLATELET COUNT 145 K/MM3 (134-434); RBC 3.09 M/mm3 (3.60-5.2); RDW 14.1 % (11.6-15.6); WHITE BLOOD COUNT 5.1 K/mm3 (4.0-10.0)
[2020-10-22 09:17] LABS: POTASSIUM 3.2 mmol/L (3.5-5.1)
[2020-10-22 09:25] LABS: ALBUMIN 1.7 g/dl (3.4-5.0)
[2020-10-22 09:26] LABS: BLOOD UREA NITROGEN 33.4 mg/dL (7-18)
[2020-10-22] MEDS: CITALOPRAM HYDROBROMIDE 10 MG TABLET PO SCH (09:26)
[2020-10-22] MEDS: hydrALAZINE HCL 25 MG TABLET (FP) PO SCH (09:26)
[2020-10-22] MEDS: APIXABAN 2.5 MG TABLET PO SCH (09:26)
[2020-10-22] MEDS: ASPIRIN 81 MG CHEWABLE TABLETS PO SCH (09:26)
[2020-10-22 09:27] LABS: MAGNESIUM 1.4 mg/dL (1.8-2.4)
[2020-10-22 09:29] LABS: BILIRUBIN,TOTAL 0.2 mg/dL (0.2-1); PHOSPHOROUS 2.8 mg/dL (2.5-4.9)
[2020-10-22 10:04] LABS: TOT PROT 3.6 g/dl (6.4-8.2)
[2020-10-22] MEDS ORDERED: POTASSIUM CHLORIDE ORAL LIQUID 20 MEQ/15 ML PO ONE (10:10)
[2020-10-22 11:31] LABS: CALCIUM 5.1 mg/dL (8.5-10.1)
[2020-10-22] MEDS ORDERED: POTASSIUM CHLORIDE ORAL LIQUID 20 MEQ/15 ML ONE (12:23)
[2020-10-22] MEDS ORDERED: SODIUM CHLORIDE 1,000 ML IV SCH (15:45)
[2020-10-22 19:25] LABS: HEMATOCRIT 36.7 % (32.4-45.2); MCH 29.2 pg (25.7-33.7); MCHC 32.6 g/dl (32.0-36.0); MEAN CELL VOLUME 89.6 fl (80-96); MEAN PLT VOLUME 8.3 fl (7.5-11.1); PLATELET COUNT 216 K/MM3 (134-434)
[2020-10-22 19:48] LABS: CHLORIDE 125 mmol/L (98-107); POTASSIUM 3.3 mmol/L (3.5-5.1); SODIUM 147 mmol/L (136-145)
[2020-10-22 19:50] LABS: ALBUMIN 1.8 g/dl (3.4-5.0); ANION GAP 8 MMOL/L (8-16); BLOOD UREA NITROGEN 34.6 mg/dL (7-18); CO2 15 mmol/L (21-32); GLUCOSE,RANDOM 109 mg/dL (74-106)
[2020-10-22 19:53] LABS: CREATININE 0.9 mg/dL (0.55-1.3); SGOT/AST 13 U/L (15-37); SGPT/ALT 11 U/L (13-61)
[2020-10-22 19:55] LABS: BILIRUBIN,TOTAL < 0.1 mg/dL (0.2-1); TOT PROT 3.6 g/dl (6.4-8.2)
[2020-10-22 19:56] LABS: ALK PHOS 57 U/L (45-117)
[2020-10-22 19:59] LABS: CALCIUM 5.2 mg/dL (8.5-10.1)
[2020-10-23] MEDS: APIXABAN 2.5 MG TABLET PO SCH ×3 (03:59→21:44)
[2020-10-23] MEDS: hydrALAZINE HCL 25 MG TABLET (FP) PO SCH ×3 (03:59→21:44)
[2020-10-23 08:38] LABS: POTASSIUM 5.3 mmol/L (3.5-5.1)
[2020-10-23 08:42] LABS: HEMATOCRIT 41.4 % (32.4-45.2); HEMOGLOBIN 13.9 GM/dL (10.7-15.3); MCH 29.9 pg (25.7-33.7); MCHC 33.7 g/dl (32.0-36.0); MEAN CELL VOLUME 88.8 fl (80-96); MEAN PLT VOLUME 8.4 fl (7.5-11.1); PLATELET COUNT 243 K/MM3 (134-434); RBC 4.66 M/mm3 (3.60-5.2); RDW 14.6 % (11.6-15.6); WHITE BLOOD COUNT 18.5 K/mm3 (4.0-10.0)
[2020-10-23 09:18] LABS: CALCIUM 8.5 mg/dL (8.5-10.1)
[2020-10-23 09:19] LABS: ALBUMIN 3.1 g/dl (3.4-5.0); BLOOD UREA NITROGEN 40.3 mg/dL (7-18)
[2020-10-23 09:22] LABS: CREATININE 1.5 mg/dL (0.55-1.3)
[2020-10-23 09:24] LABS: BILIRUBIN,TOTAL 0.6 mg/dL (0.2-1)
[2020-10-23] MEDS ORDERED: POTASSIUM CHLORIDE TABS 20 MEQ TABLET.ER (FP) PO SCH (10:00)
[2020-10-23] MEDS: ASPIRIN 81 MG CHEWABLE TABLETS PO SCH (10:25)
[2020-10-23 13:55] VITALS: BMI 17.2
[2020-10-23] MEDS: CITALOPRAM HYDROBROMIDE 10 MG TABLET PO SCH (14:54)
[2020-10-23] MEDS: DEXTROSE 5%-0.45% SALINE 1,000 ML IV SCH (15:23)
[2020-10-23] MEDS: SODIUM BICARBONATE 650 MG TABLET PO SCH ×2 (16:31→21:40)
[2020-10-24] MEDS: DEXTROSE 5%-0.45% SALINE 1,000 ML IV SCH ×2 (05:50→18:31)
[2020-10-24] MEDS: SODIUM BICARBONATE 650 MG TABLET PO SCH (10:17)
[2020-10-24] MEDS: CITALOPRAM HYDROBROMIDE 10 MG TABLET PO SCH (10:18)
[2020-10-24] MEDS: APIXABAN 2.5 MG TABLET PO SCH ×2 (10:18→21:33)
[2020-10-24] MEDS: ASPIRIN 81 MG CHEWABLE TABLETS PO SCH (10:18)
[2020-10-24] MEDS: hydrALAZINE HCL 25 MG TABLET (FP) PO SCH ×2 (10:18→21:35)
[2020-10-24 13:24] LABS: BASO % 0.2 % (0-2.0); EOS % 0.1 % (0-4.5); HEMATOCRIT 39.6 % (32.4-45.2); HEMOGLOBIN 13.3 GM/dL (10.7-15.3); LYMPH % 5.8 % (8-40); MCH 29.5 pg (25.7-33.7); MCHC 33.7 g/dl (32.0-36.0); MEAN CELL VOLUME 87.7 fl (80-96); MEAN PLT VOLUME 8.6 fl (7.5-11.1); MONO % 23.6 % (3.8-10.2); NEUT % 70.3 % (42.8-82.8); PLATELET COUNT 208 K/MM3 (134-434); RBC 4.51 M/mm3 (3.60-5.2); RDW 13.9 % (11.6-15.6); WHITE BLOOD COUNT 11.3 K/mm3 (4.0-10.0)
[2020-10-24 13:45] LABS: POTASSIUM 4.5 mmol/L (3.5-5.1)
[2020-10-24 13:48] LABS: ALBUMIN 3.2 g/dl (3.4-5.0); BLOOD UREA NITROGEN 27.6 mg/dL (7-18)
[2020-10-24 13:51] LABS: CREATININE 1.2 mg/dL (0.55-1.3)
[2020-10-24 13:52] LABS: BILIRUBIN,TOTAL 0.8 mg/dL (0.2-1); TOT PROT 6.2 g/dl (6.4-8.2)
[2020-10-24 15:13] LABS: ANISOCYTOSIS 1+; MACROCYTOSIS 1+; PLATELET ESTIMATE NORMAL
[2020-10-24] MEDS: QUEtiapine FUMARATE 25 MG TABLET PO SCH (21:34)
[2020-10-25] MEDS: DEXTROSE 5%-0.45% SALINE 1,000 ML IV SCH ×2 (06:13→13:44)
[2020-10-25 09:27] LABS: BASO % 0.1 % (0-2.0); EOS % 0.4 % (0-4.5); HEMATOCRIT 36.9 % (32.4-45.2); HEMOGLOBIN 12.2 GM/dL (10.7-15.3); MEAN CELL VOLUME 87.9 fl (80-96); MEAN PLT VOLUME 8.7 fl (7.5-11.1); MONO % 23.1 % (3.8-10.2); NEUT % 69.4 % (42.8-82.8); PLATELET COUNT 175 K/MM3 (134-434); RDW 14.1 % (11.6-15.6); WHITE BLOOD COUNT 8.6 K/mm3 (4.0-10.0)
[2020-10-25 09:54] LABS: POTASSIUM 4.3 mmol/L (3.5-5.1)
[2020-10-25 10:17] LABS: ALBUMIN 2.6 g/dl (3.4-5.0); CALCIUM 7.9 mg/dL (8.5-10.1); MAGNESIUM 2.1 mg/dL (1.8-2.4)
[2020-10-25 10:20] LABS: CREATININE 1.1 mg/dL (0.55-1.3)
[2020-10-25 10:21] LABS: PHOSPHOROUS 2.2 mg/dL (2.5-4.9)
[2020-10-25 10:22] LABS: TOT PROT 5.2 g/dl (6.4-8.2)
[2020-10-25 10:30] LABS: BILIRUBIN,TOTAL 0.9 mg/dL (0.2-1)
[2020-10-25] MEDS: APIXABAN 2.5 MG TABLET PO SCH (10:56)
[2020-10-25] MEDS: CITALOPRAM HYDROBROMIDE 10 MG TABLET PO SCH (10:56)
[2020-10-25] MEDS: QUEtiapine FUMARATE 25 MG TABLET PO SCH ×2 (10:57→21:57)
[2020-10-25] MEDS: hydrALAZINE HCL 25 MG TABLET (FP) PO SCH ×2 (10:57→21:57)
[2020-10-25] MEDS: ASPIRIN 81 MG CHEWABLE TABLETS PO SCH (10:57)
[2020-10-25] MEDS ORDERED: SODIUM PHOSPHATE - 20 MM in DEXTROSE 5%-WATER - 250 ML IVPB ONE (13:00)
[2020-10-25 13:08] LABS: ANISOCYTOSIS 0; MACROCYTOSIS 0; PLATELET ESTIMATE NORMAL
[2020-10-25 17:34] LABS: BASO % 0.3 % (0-2.0); EOS % 1.8 % (0-4.5); HEMATOCRIT 39.1 % (32.4-45.2); HEMOGLOBIN 13.1 GM/dL (10.7-15.3); LYMPH % 9.5 % (8-40); MCH 29.7 pg (25.7-33.7); MCHC 33.5 g/dl (32.0-36.0); MEAN CELL VOLUME 88.8 fl (80-96); MEAN PLT VOLUME 8.9 fl (7.5-11.1); MONO % 23.2 % (3.8-10.2); NEUT % 65.2 % (42.8-82.8); PLATELET COUNT 183 K/MM3 (134-434); RBC 4.41 M/mm3 (3.60-5.2); RDW 14.5 % (11.6-15.6); WHITE BLOOD COUNT 9.1 K/mm3 (4.0-10.0)
[2020-10-25] MEDS: ALBUTEROL SO4 HFA INHALER IH PRN (17:52)
[2020-10-25 18:04] LABS: ANISOCYTOSIS 1+; MACROCYTOSIS 1+; PLATELET ESTIMATE NORMAL
[2020-10-25] MEDS ORDERED: PANTOPRAZOLE SODIUM 40 MG VIAL IVPUSH SCH (22:00)
[2020-10-26 09:09] LABS: BASO % 0.3 % (0-2.0); EOS % 1.5 % (0-4.5); HEMATOCRIT 38.6 % (32.4-45.2); HEMOGLOBIN 12.9 GM/dL (10.7-15.3); LYMPH % 10.8 % (8-40); MCH 29.4 pg (25.7-33.7); MCHC 33.3 g/dl (32.0-36.0); MEAN CELL VOLUME 88.1 fl (80-96); MEAN PLT VOLUME 8.6 fl (7.5-11.1); MONO % 20.4 % (3.8-10.2); PLATELET COUNT 199 K/MM3 (134-434); RBC 4.39 M/mm3 (3.60-5.2); WHITE BLOOD COUNT 9.7 K/mm3 (4.0-10.0)
[2020-10-26 09:29] LABS: POTASSIUM 4.2 mmol/L (3.5-5.1)
[2020-10-26 09:37] LABS: ALBUMIN 2.8 g/dl (3.4-5.0); BLOOD UREA NITROGEN 27.6 mg/dL (7-18); MAGNESIUM 2.1 mg/dL (1.8-2.4)
[2020-10-26 09:40] LABS: CREATININE 1.1 mg/dL (0.55-1.3); PHOSPHOROUS 3.3 mg/dL (2.5-4.9)
[2020-10-26 09:41] LABS: BILIRUBIN,TOTAL 0.7 mg/dL (0.2-1)
[2020-10-26 09:42] LABS: TOT PROT 5.7 g/dl (6.4-8.2)
[2020-10-26 11:08] LABS: ANISOCYTOSIS 0; MACROCYTOSIS 0; PLATELET ESTIMATE NORMAL
[2020-10-26] MEDS: CITALOPRAM HYDROBROMIDE 10 MG TABLET PO SCH (11:19)
[2020-10-26] MEDS: QUEtiapine FUMARATE 25 MG TABLET PO SCH ×2 (11:19→21:16)
[2020-10-26] MEDS: PANTOPRAZOLE 40 MG TABLET PO SCH (11:20)
[2020-10-26] MEDS: hydrALAZINE HCL 25 MG TABLET (FP) PO SCH ×2 (11:20→21:17)
[2020-10-27 10:42] LABS: BASO % 0.2 % (0-2.0); EOS % 4.6 % (0-4.5); HEMOGLOBIN 12.6 GM/dL (10.7-15.3); LYMPH % 10.9 % (8-40); MCH 29.9 pg (25.7-33.7); MEAN CELL VOLUME 87.8 fl (80-96); MEAN PLT VOLUME 8.6 fl (7.5-11.1); NEUT % 59.3 % (42.8-82.8); PLATELET COUNT 189 K/MM3 (134-434); RBC 4.21 M/mm3 (3.60-5.2); WHITE BLOOD COUNT 7.1 K/mm3 (4.0-10.0)
[2020-10-27 10:59] LABS: POTASSIUM 3.8 mmol/L (3.5-5.1)
[2020-10-27 11:01] LABS: CALCIUM 7.7 mg/dL (8.5-10.1)
[2020-10-27 11:02] LABS: ALBUMIN 2.6 g/dl (3.4-5.0); BLOOD UREA NITROGEN 23.4 mg/dL (7-18); MAGNESIUM 2.1 mg/dL (1.8-2.4)
[2020-10-27 11:05] LABS: CREATININE 1.1 mg/dL (0.55-1.3)
[2020-10-27 11:06] LABS: BILIRUBIN,TOTAL 0.5 mg/dL (0.2-1)
[2020-10-27 11:07] LABS: TOT PROT 5.4 g/dl (6.4-8.2)
[2020-10-27 11:32] LABS: ANISOCYTOSIS 0; MACROCYTOSIS 0; PLATELET ESTIMATE NORMAL
[2020-10-27] MEDS: DEXTROSE 5%-0.45% SALINE 1,000 ML IV SCH ×2 (12:09→12:12)
[2020-10-27] MEDS: QUEtiapine FUMARATE 25 MG TABLET PO SCH ×3 (12:10→21:17)
[2020-10-27] MEDS: CITALOPRAM HYDROBROMIDE 10 MG TABLET PO SCH ×2 (12:10→12:22)
[2020-10-27] MEDS: hydrALAZINE HCL 25 MG TABLET (FP) PO SCH ×3 (12:10→21:17)
[2020-10-27] MEDS: PANTOPRAZOLE 40 MG TABLET PO SCH ×2 (12:11→12:22)
[2020-10-27] MEDS: AMINO ACIDS/PROTEIN HYDROLYS 30 ML LIQUID.PKT PO SCH (18:14)
[2020-10-27] MEDS: BANATROL PLUS POWDER PACKET PO SCH (21:16)
[2020-10-28] MEDS: BANATROL PLUS POWDER PACKET PO SCH ×3 (06:18→21:56)
[2020-10-28] MEDS: PANTOPRAZOLE 40 MG TABLET PO SCH (10:40)
[2020-10-28] MEDS: MULTIVITAMINS THER W-MINERALS COMBO TABLET (FP) PO SCH (10:41)
[2020-10-28] MEDS: QUEtiapine FUMARATE 25 MG TABLET PO SCH ×2 (10:41→21:54)
[2020-10-28] MEDS: CITALOPRAM HYDROBROMIDE 10 MG TABLET PO SCH (10:42)
[2020-10-28] MEDS: AMINO ACIDS/PROTEIN HYDROLYS 30 ML LIQUID.PKT PO SCH ×2 (10:42→16:55)
[2020-10-28] MEDS: hydrALAZINE HCL 25 MG TABLET (FP) PO SCH ×2 (10:42→21:57)
[2020-10-28 12:47] LABS: BASO % 0.3 % (0-2.0); EOS % 3.1 % (0-4.5); HEMATOCRIT 35.5 % (32.4-45.2); HEMOGLOBIN 12.2 GM/dL (10.7-15.3); LYMPH % 10.7 % (8-40); MCH 29.7 pg (25.7-33.7); MCHC 34.3 g/dl (32.0-36.0); MEAN CELL VOLUME 86.7 fl (80-96); MEAN PLT VOLUME 7.9 fl (7.5-11.1); MONO % 22.8 % (3.8-10.2); NEUT % 63.1 % (42.8-82.8); PLATELET COUNT 190 K/MM3 (134-434); RDW 14.2 % (11.6-15.6); WHITE BLOOD COUNT 6.2 K/mm3 (4.0-10.0)
[2020-10-28 13:19] LABS: ALBUMIN 2.2 g/dl (3.4-5.0); BLOOD UREA NITROGEN 17.4 mg/dL (7-18); CALCIUM 7.3 mg/dL (8.5-10.1); MAGNESIUM 1.9 mg/dL (1.8-2.4)
[2020-10-28 13:22] LABS: CREATININE 0.9 mg/dL (0.55-1.3)
[2020-10-28 13:24] LABS: BILIRUBIN,TOTAL 0.4 mg/dL (0.2-1)
[2020-10-28 13:50] LABS: ANISOCYTOSIS 0; MACROCYTOSIS 0; PLATELET ESTIMATE NORMAL
[2020-10-28 14:11] LABS: POTASSIUM 3.4 mmol/L (3.5-5.1)
[2020-10-28] MEDS: DEXTROSE 5%-0.45% SALINE 1,000 ML IV SCH (15:16)
[2020-10-28] MEDS ORDERED: POTASSIUM CHLORIDE ORAL LIQUID 20 MEQ/15 ML PO ONE (16:34)
[2020-10-28] MEDS ORDERED: D5-1/2NS+20 MEQ KCL - 20 MEQ/1,000 ML INFUS.BAG IV SCH (18:15)
[2020-10-28 19:25] LABS: EPI CELLS 4 /uL (0-25.1); HYALINE CASTS 4 /uL (0-3.1); PH,URINE 5.5 (5.0-8.0); URINE APPEARANCE TURBID; URINE BACTERIA >9,000 /uL (0-1359); URINE BILIRUBIN NEGATIVE (NEGATIVE); URINE COLOR YELLOW; URINE GLUCOSE (UA) NEGATIVE (NEGATIVE); URINE KETONE NEGATIVE (NEGATIVE); URINE LEUK ESTERASE 3+ (NEGATIVE); URINE NITRITE POSITIVE (NEGATIVE); URINE PROTEIN 1+ (NEGATIVE); URINE RBC 73 /uL (0-23.9); URINE UROBILINOGEN 0.2 mg/dL (0.2-1.0); URINE WBC 4434 /uL (0-25.8)
[2020-10-28] MEDS: APIXABAN 2.5 MG TABLET PO SCH (21:55)
[2020-10-29] MEDS: BANATROL PLUS POWDER PACKET PO SCH ×3 (06:16→21:04)
[2020-10-29 10:28] LABS: HEMATOCRIT 39.6 % (32.4-45.2); HEMOGLOBIN 13.2 GM/dL (10.7-15.3); MCH 29.6 pg (25.7-33.7); MCHC 33.3 g/dl (32.0-36.0); MEAN PLT VOLUME 8.4 fl (7.5-11.1); PLATELET COUNT 185 K/MM3 (134-434); RBC 4.44 M/mm3 (3.60-5.2); RDW 14.1 % (11.6-15.6); WHITE BLOOD COUNT 7.5 K/mm3 (4.0-10.0)
[2020-10-29 10:29] LABS: POTASSIUM 5.3 mmol/L (3.5-5.1)
[2020-10-29 10:37] LABS: BLOOD UREA NITROGEN 17.2 mg/dL (7-18)
[2020-10-29 10:38] LABS: ALBUMIN 2.6 g/dl (3.4-5.0); CALCIUM 7.6 mg/dL (8.5-10.1)
[2020-10-29 10:39] LABS: TOT PROT 5.6 g/dl (6.4-8.2)
[2020-10-29 10:40] LABS: CREATININE 0.9 mg/dL (0.55-1.3)
[2020-10-29 10:44] LABS: BILIRUBIN,TOTAL 0.6 mg/dL (0.2-1)
[2020-10-29] MEDS: CEFTRIAXONE 1 GM in DEXTROSE 5%-WATER - 50 ML IVPB SCH (11:18)
[2020-10-29] MEDS: AMINO ACIDS/PROTEIN HYDROLYS 30 ML LIQUID.PKT PO SCH ×2 (11:19→17:32)
[2020-10-29] MEDS: PANTOPRAZOLE 40 MG TABLET PO SCH (11:20)
[2020-10-29] MEDS: MULTIVITAMINS THER W-MINERALS COMBO TABLET (FP) PO SCH (11:20)
[2020-10-29] MEDS: APIXABAN 2.5 MG TABLET PO SCH ×2 (11:21→21:05)
[2020-10-29] MEDS: CITALOPRAM HYDROBROMIDE 10 MG TABLET PO SCH (11:21)
[2020-10-29] MEDS: QUEtiapine FUMARATE 25 MG TABLET PO SCH ×2 (11:22→21:05)
[2020-10-29] MEDS: hydrALAZINE HCL 25 MG TABLET (FP) PO SCH ×2 (11:23→21:04)
[2020-10-29 18:00] LABS: POTASSIUM 4.2 mmol/L (3.5-5.1)
[2020-10-29 18:02] LABS: BLOOD UREA NITROGEN 18.6 mg/dL (7-18); CALCIUM 7.5 mg/dL (8.5-10.1)
[2020-10-29 18:06] LABS: CREATININE 0.9 mg/dL (0.55-1.3)
[2020-10-29] MEDS: DEXTROSE 5%-0.45% SALINE 1,000 ML IV SCH (18:16)
[2020-10-30] MEDS: BANATROL PLUS POWDER PACKET PO SCH ×3 (05:29→21:03)
[2020-10-30 09:05] LABS: POTASSIUM 4.2 mmol/L (3.5-5.1)
[2020-10-30 09:26] LABS: BLOOD UREA NITROGEN 17.8 mg/dL (7-18); CALCIUM 7.3 mg/dL (8.5-10.1)
[2020-10-30 09:30] LABS: CREATININE 0.9 mg/dL (0.55-1.3)
[2020-10-30] MEDS: AMINO ACIDS/PROTEIN HYDROLYS 30 ML LIQUID.PKT PO SCH ×2 (10:27→17:45)
[2020-10-30] MEDS: CEFTRIAXONE 1 GM in DEXTROSE 5%-WATER - 50 ML IVPB SCH (10:28)
[2020-10-30] MEDS: PANTOPRAZOLE 40 MG TABLET PO SCH (10:28)
[2020-10-30] MEDS: CITALOPRAM HYDROBROMIDE 10 MG TABLET PO SCH (10:29)
[2020-10-30] MEDS: hydrALAZINE HCL 25 MG TABLET (FP) PO SCH ×2 (10:30→21:03)
[2020-10-30] MEDS: APIXABAN 2.5 MG TABLET PO SCH ×2 (10:30→21:03)
[2020-10-30] MEDS: LOSARTAN POTASSIUM 50 MG TABLET PO SCH (10:32)
[2020-10-30] MEDS: QUEtiapine FUMARATE 25 MG TABLET PO SCH ×2 (10:49→21:03)
[2020-10-30] MEDS: DEXTROSE 5%-0.45% SALINE 1,000 ML IV SCH ×2 (10:50→21:02)
[2020-10-30] MEDS: MULTIVITAMINS THER W-MINERALS COMBO TABLET (FP) PO SCH (10:51)
[2020-10-30] MEDS: ALBUTEROL SO4 HFA INHALER IH PRN ×2 (10:51→22:06)
[2020-10-31] MEDS: BANATROL PLUS POWDER PACKET PO SCH ×3 (06:13→21:41)
[2020-10-31 09:14] LABS: HEMATOCRIT 32.7 % (32.4-45.2); HEMOGLOBIN 11.3 GM/dL (10.7-15.3); MCH 29.7 pg (25.7-33.7); MCHC 34.4 g/dl (32.0-36.0); MEAN CELL VOLUME 86.2 fl (80-96); MEAN PLT VOLUME 8.2 fl (7.5-11.1); PLATELET COUNT 185 K/MM3 (134-434); WHITE BLOOD COUNT 7.5 K/mm3 (4.0-10.0)
[2020-10-31 09:16] LABS: POTASSIUM 3.9 mmol/L (3.5-5.1)
[2020-10-31 09:19] LABS: CALCIUM 7.3 mg/dL (8.5-10.1)
[2020-10-31 09:23] LABS: CREATININE 0.7 mg/dL (0.55-1.3)
[2020-10-31] MEDS: PANTOPRAZOLE 40 MG TABLET PO SCH (09:52)
[2020-10-31] MEDS: LOSARTAN POTASSIUM 50 MG TABLET PO SCH (09:52)
[2020-10-31] MEDS: AMINO ACIDS/PROTEIN HYDROLYS 30 ML LIQUID.PKT PO SCH ×2 (09:52→17:11)
[2020-10-31] MEDS: MULTIVITAMINS THER W-MINERALS COMBO TABLET (FP) PO SCH (09:52)
[2020-10-31] MEDS: QUEtiapine FUMARATE 25 MG TABLET PO SCH ×2 (09:53→21:41)
[2020-10-31] MEDS: hydrALAZINE HCL 25 MG TABLET (FP) PO SCH ×2 (09:53→21:40)
[2020-10-31] MEDS: CITALOPRAM HYDROBROMIDE 10 MG TABLET PO SCH (09:54)
[2020-10-31] MEDS: APIXABAN 2.5 MG TABLET PO SCH ×2 (09:54→21:40)
[2020-10-31] MEDS: CEFTRIAXONE 1 GM in DEXTROSE 5%-WATER - 50 ML IVPB SCH (09:54)
[2020-10-31] MEDS: DEXTROSE 5%-0.45% SALINE 1,000 ML IV SCH (21:40)
[2020-11-01] MEDS: BANATROL PLUS POWDER PACKET PO SCH ×3 (05:32→22:49)
[2020-11-01 08:54] LABS: BASO % 0.2 % (0-2.0); EOS % 4.5 % (0-4.5); HEMATOCRIT 34.8 % (32.4-45.2); HEMOGLOBIN 11.8 GM/dL (10.7-15.3); LYMPH % 9.6 % (8-40); MCH 29.3 pg (25.7-33.7); MCHC 33.9 g/dl (32.0-36.0); MEAN CELL VOLUME 86.5 fl (80-96); MEAN PLT VOLUME 8.4 fl (7.5-11.1); MONO % 18.7 % (3.8-10.2); PLATELET COUNT 236 K/MM3 (134-434); RBC 4.02 M/mm3 (3.60-5.2); RDW 13.8 % (11.6-15.6); WHITE BLOOD COUNT 9.8 K/mm3 (4.0-10.0)
[2020-11-01 09:15] LABS: POTASSIUM 4.1 mmol/L (3.5-5.1)
[2020-11-01 09:23] LABS: ALBUMIN 2.3 g/dl (3.4-5.0); BLOOD UREA NITROGEN 12.5 mg/dL (7-18); CALCIUM 7.7 mg/dL (8.5-10.1); MAGNESIUM 2.2 mg/dL (1.8-2.4)
[2020-11-01 09:24] LABS: PHOSPHOROUS 2.6 mg/dL (2.5-4.9)
[2020-11-01 09:25] LABS: BILIRUBIN,TOTAL 0.5 mg/dL (0.2-1); TOT PROT 4.9 g/dl (6.4-8.2)
[2020-11-01 09:26] LABS: CREATININE 0.8 mg/dL (0.55-1.3)
[2020-11-01] MEDS: AMINO ACIDS/PROTEIN HYDROLYS 30 ML LIQUID.PKT PO SCH ×2 (11:38→17:09)
[2020-11-01] MEDS: hydrALAZINE HCL 25 MG TABLET (FP) PO SCH ×2 (11:39→22:47)
[2020-11-01] MEDS: LOSARTAN POTASSIUM 50 MG TABLET PO SCH (11:39)
[2020-11-01] MEDS: APIXABAN 2.5 MG TABLET PO SCH ×2 (11:39→22:49)
[2020-11-01] MEDS: QUEtiapine FUMARATE 25 MG TABLET PO SCH ×2 (11:39→22:48)
[2020-11-01] MEDS: MULTIVITAMINS THER W-MINERALS COMBO TABLET (FP) PO SCH (11:40)
[2020-11-01] MEDS: CITALOPRAM HYDROBROMIDE 10 MG TABLET PO SCH (11:41)
[2020-11-01] MEDS: DEXTROSE 5%-0.45% SALINE 1,000 ML IV SCH ×2 (11:43→22:46)
[2020-11-01] MEDS: CEFTRIAXONE 1 GM in DEXTROSE 5%-WATER - 50 ML IVPB SCH (11:43)
[2020-11-02] MEDS: BANATROL PLUS POWDER PACKET PO SCH ×3 (05:17→22:34)
[2020-11-02] MEDS: AMINO ACIDS/PROTEIN HYDROLYS 30 ML LIQUID.PKT PO SCH ×2 (12:55→18:23)
[2020-11-02] MEDS: hydrALAZINE HCL 25 MG TABLET (FP) PO SCH ×2 (12:55→22:34)
[2020-11-02] MEDS: APIXABAN 2.5 MG TABLET PO SCH ×2 (12:56→22:34)
[2020-11-02] MEDS: CITALOPRAM HYDROBROMIDE 10 MG TABLET PO SCH (12:56)
[2020-11-02] MEDS: LOSARTAN POTASSIUM 50 MG TABLET PO SCH (12:56)
[2020-11-02] MEDS: QUEtiapine FUMARATE 25 MG TABLET PO SCH ×2 (12:57→22:34)
[2020-11-02] MEDS: MULTIVITAMINS THER W-MINERALS COMBO TABLET (FP) PO SCH (12:58)
[2020-11-02] MEDS: CEFTRIAXONE 1 GM in DEXTROSE 5%-WATER - 50 ML IVPB SCH (12:59)
[2020-11-02] MEDS: DEXTROSE 5%-0.45% SALINE 1,000 ML IV SCH ×2 (15:10→18:22)
[2020-11-03] MEDS: BANATROL PLUS POWDER PACKET PO SCH ×3 (05:55→22:06)
[2020-11-03 08:29] LABS: BASO % 0.2 % (0-2.0); EOS % 2.1 % (0-4.5); HEMATOCRIT 34.8 % (32.4-45.2); HEMOGLOBIN 11.6 GM/dL (10.7-15.3); LYMPH % 5.3 % (8-40); MCH 29.2 pg (25.7-33.7); MCHC 33.3 g/dl (32.0-36.0); MEAN CELL VOLUME 87.7 fl (80-96); MEAN PLT VOLUME 7.7 fl (7.5-11.1); MONO % 18.2 % (3.8-10.2); NEUT % 74.2 % (42.8-82.8); PLATELET COUNT 266 K/MM3 (134-434); RBC 3.97 M/mm3 (3.60-5.2); RDW 13.6 % (11.6-15.6); WHITE BLOOD COUNT 14.7 K/mm3 (4.0-10.0)
[2020-11-03 08:58] LABS: ALBUMIN 2.3 g/dl (3.4-5.0); BLOOD UREA NITROGEN 7.4 mg/dL (7-18); MAGNESIUM 1.6 mg/dL (1.8-2.4)
[2020-11-03 09:01] LABS: BILIRUBIN,TOTAL 0.8 mg/dL (0.2-1); CREATININE 0.7 mg/dL (0.55-1.3); PHOSPHOROUS 2.9 mg/dL (2.5-4.9); TOT PROT 5.6 g/dl (6.4-8.2)
[2020-11-03] MEDS: AMINO ACIDS/PROTEIN HYDROLYS 30 ML LIQUID.PKT PO SCH ×2 (09:24→22:08)
[2020-11-03] MEDS: QUEtiapine FUMARATE 25 MG TABLET PO SCH ×2 (09:25→22:07)
[2020-11-03] MEDS: APIXABAN 2.5 MG TABLET PO SCH ×2 (09:25→22:07)
[2020-11-03] MEDS: MULTIVITAMINS THER W-MINERALS COMBO TABLET (FP) PO SCH (09:25)
[2020-11-03] MEDS: hydrALAZINE HCL 25 MG TABLET (FP) PO SCH ×2 (09:26→22:07)
[2020-11-03] MEDS: LOSARTAN POTASSIUM 50 MG TABLET PO SCH (09:31)
[2020-11-03] MEDS: CEFTRIAXONE 1 GM in DEXTROSE 5%-WATER - 50 ML IVPB SCH (09:32)
[2020-11-03] MEDS: CITALOPRAM HYDROBROMIDE 10 MG TABLET PO SCH (11:33)
[2020-11-03 12:11] LABS: CALCIUM 7.9 mg/dL (8.5-10.1); POTASSIUM 4.5 mmol/L (3.5-5.1)
[2020-11-03] MEDS: FUROSEMIDE 20 MG TABLET (FP) PO SCH (18:47)
[2020-11-03] MEDS ORDERED: ACETAMINOPHEN 1000 MG/100 ML VIAL (NON FORMULARY) IVPB ONE ×2 (22:28)
[2020-11-04] MEDS: BANATROL PLUS POWDER PACKET PO SCH ×3 (06:22→22:58)
[2020-11-04 08:28] LABS: BASO % 0.5 % (0-2.0); EOS % 2.8 % (0-4.5); HEMATOCRIT 34.5 % (32.4-45.2); HEMOGLOBIN 11.5 GM/dL (10.7-15.3); LYMPH % 9.1 % (8-40); MCH 29.2 pg (25.7-33.7); MCHC 33.4 g/dl (32.0-36.0); MEAN CELL VOLUME 87.5 fl (80-96); MEAN PLT VOLUME 8.1 fl (7.5-11.1); MONO % 18.6 % (3.8-10.2); PLATELET COUNT 253 K/MM3 (134-434); RBC 3.94 M/mm3 (3.60-5.2); RDW 14.2 % (11.6-15.6); WHITE BLOOD COUNT 10.7 K/mm3 (4.0-10.0)
[2020-11-04 08:43] LABS: POTASSIUM 3.8 mmol/L (3.5-5.1)
[2020-11-04 08:44] LABS: CALCIUM 7.5 mg/dL (8.5-10.1)
[2020-11-04 08:45] LABS: BLOOD UREA NITROGEN 16.3 mg/dL (7-18)
[2020-11-04 08:49] LABS: CREATININE 0.9 mg/dL (0.55-1.3)
[2020-11-04] MEDS ORDERED: DEXTROSE 5%-WATER - 50 ML IVPB ONE (09:41)
[2020-11-04] MEDS ORDERED: cefTRIAXone SODIUM 1 GM VIAL ONE (09:42)
[2020-11-04] MEDS: AMINO ACIDS/PROTEIN HYDROLYS 30 ML LIQUID.PKT PO SCH ×2 (09:45→18:38)
[2020-11-04] MEDS: CITALOPRAM HYDROBROMIDE 10 MG TABLET PO SCH (09:46)
[2020-11-04] MEDS: QUEtiapine FUMARATE 25 MG TABLET PO SCH ×2 (09:46→22:57)
[2020-11-04] MEDS: hydrALAZINE HCL 25 MG TABLET (FP) PO SCH ×2 (09:46→22:57)
[2020-11-04] MEDS: MULTIVITAMINS THER W-MINERALS COMBO TABLET (FP) PO SCH (09:46)
[2020-11-04] MEDS: FUROSEMIDE 20 MG TABLET (FP) PO SCH (09:47)
[2020-11-04] MEDS: LOSARTAN POTASSIUM 50 MG TABLET PO SCH (09:47)
[2020-11-04] MEDS: CEFTRIAXONE 1 GM in DEXTROSE 5%-WATER - 50 ML IVPB SCH (09:47)
[2020-11-04] MEDS: APIXABAN 2.5 MG TABLET PO SCH ×2 (09:47→22:57)
[2020-11-04] MEDS: ACETAMINOPHEN 325 MG TABLET (FP) PO PRN (18:38)
[2020-11-05] MEDS: BANATROL PLUS POWDER PACKET PO SCH ×4 (06:56→21:37)
[2020-11-05] MEDS: AMINO ACIDS/PROTEIN HYDROLYS 30 ML LIQUID.PKT PO SCH ×2 (09:32→18:49)
[2020-11-05] MEDS: QUEtiapine FUMARATE 25 MG TABLET PO SCH ×2 (09:33→18:49)
[2020-11-05] MEDS: LOSARTAN POTASSIUM 50 MG TABLET PO SCH (09:34)
[2020-11-05] MEDS: hydrALAZINE HCL 25 MG TABLET (FP) PO SCH ×2 (09:34→21:37)
[2020-11-05] MEDS: APIXABAN 2.5 MG TABLET PO SCH ×2 (09:34→21:37)
[2020-11-05] MEDS: CITALOPRAM HYDROBROMIDE 10 MG TABLET PO SCH (09:34)
[2020-11-05] MEDS: FUROSEMIDE 20 MG TABLET (FP) PO SCH (09:35)
[2020-11-05] MEDS: MULTIVITAMINS THER W-MINERALS COMBO TABLET (FP) PO SCH (09:35)
[2020-11-05] MEDS: ACETAMINOPHEN 325 MG TABLET (FP) PO PRN (18:50)
[2020-11-06] MEDS: ACETAMINOPHEN 325 MG TABLET (FP) PO PRN (04:53)
[2020-11-06] MEDS: BANATROL PLUS POWDER PACKET PO SCH ×3 (05:19→22:30)
[2020-11-06] MEDS: MULTIVITAMINS THER W-MINERALS COMBO TABLET (FP) PO SCH (09:55)
[2020-11-06] MEDS: LOSARTAN POTASSIUM 50 MG TABLET PO SCH (09:55)
[2020-11-06] MEDS: AMINO ACIDS/PROTEIN HYDROLYS 30 ML LIQUID.PKT PO SCH ×2 (09:56→17:53)
[2020-11-06] MEDS: APIXABAN 2.5 MG TABLET PO SCH ×2 (09:58→22:31)
[2020-11-06] MEDS: CITALOPRAM HYDROBROMIDE 10 MG TABLET PO SCH (09:58)
[2020-11-06] MEDS: QUEtiapine FUMARATE 25 MG TABLET PO SCH ×2 (09:59→17:52)
[2020-11-06] MEDS: hydrALAZINE HCL 25 MG TABLET (FP) PO SCH ×3 (10:01→22:30)
[2020-11-06 10:38] LABS: POTASSIUM 3.6 mmol/L (3.5-5.1)
[2020-11-06 10:41] LABS: BLOOD UREA NITROGEN 15.2 mg/dL (7-18); CALCIUM 8.3 mg/dL (8.5-10.1)
[2020-11-06 10:44] LABS: CREATININE 0.7 mg/dL (0.55-1.3)
[2020-11-06] MEDS ORDERED: hydrALAZINE HCL 25 MG TABLET (FP) PO SCH ×2 (14:00)
[2020-11-07] MEDS: hydrALAZINE HCL 25 MG TABLET (FP) PO SCH ×3 (05:34→22:21)
[2020-11-07] MEDS: BANATROL PLUS POWDER PACKET PO SCH ×3 (05:36→22:21)
[2020-11-07] MEDS: AMINO ACIDS/PROTEIN HYDROLYS 30 ML LIQUID.PKT PO SCH ×2 (08:31→17:49)
[2020-11-07] MEDS: APIXABAN 2.5 MG TABLET PO SCH ×2 (10:17→22:21)
[2020-11-07] MEDS: QUEtiapine FUMARATE 25 MG TABLET PO SCH ×2 (10:17→17:49)
[2020-11-07] MEDS: LOSARTAN POTASSIUM 50 MG TABLET PO SCH (10:17)
[2020-11-07] MEDS: MULTIVITAMINS THER W-MINERALS COMBO TABLET (FP) PO SCH (10:17)
[2020-11-07] MEDS: CITALOPRAM HYDROBROMIDE 10 MG TABLET PO SCH (10:18)
[2020-11-07 12:08] LABS: BASO % 0.6 % (0-2.0); EOS % 1.7 % (0-4.5); HEMATOCRIT 33.9 % (32.4-45.2); HEMOGLOBIN 11.3 GM/dL (10.7-15.3); LYMPH % 6.2 % (8-40); MCH 28.8 pg (25.7-33.7); MCHC 33.4 g/dl (32.0-36.0); MEAN CELL VOLUME 86.4 fl (80-96); MEAN PLT VOLUME 7.9 fl (7.5-11.1); MONO % 18.9 % (3.8-10.2); NEUT % 72.6 % (42.8-82.8); PLATELET COUNT 336 K/MM3 (134-434); RBC 3.93 M/mm3 (3.60-5.2); RDW 13.8 % (11.6-15.6); WHITE BLOOD COUNT 14.7 K/mm3 (4.0-10.0)
[2020-11-07 12:18] LABS: POTASSIUM 3.5 mmol/L (3.5-5.1)
[2020-11-07 12:20] LABS: CALCIUM 8.6 mg/dL (8.5-10.1)
[2020-11-07 12:21] LABS: BLOOD UREA NITROGEN 15.6 mg/dL (7-18)
[2020-11-07 12:24] LABS: CREATININE 0.8 mg/dL (0.55-1.3)
[2020-11-08] MEDS: hydrALAZINE HCL 25 MG TABLET (FP) PO SCH ×3 (06:09→21:21)
[2020-11-08] MEDS: BANATROL PLUS POWDER PACKET PO SCH ×3 (06:12→21:21)
[2020-11-08 08:57] LABS: POTASSIUM 3.6 mmol/L (3.5-5.1)
[2020-11-08 09:17] LABS: BLOOD UREA NITROGEN 12.6 mg/dL (7-18)
[2020-11-08 09:22] LABS: CREATININE 0.8 mg/dL (0.55-1.3)
[2020-11-08] MEDS: AMINO ACIDS/PROTEIN HYDROLYS 30 ML LIQUID.PKT PO SCH ×2 (10:40→17:59)
[2020-11-08] MEDS: LOSARTAN POTASSIUM 50 MG TABLET PO SCH (10:40)
[2020-11-08] MEDS: MULTIVITAMINS THER W-MINERALS COMBO TABLET (FP) PO SCH (10:40)
[2020-11-08] MEDS: QUEtiapine FUMARATE 25 MG TABLET PO SCH ×2 (10:40→17:59)
[2020-11-08] MEDS: CITALOPRAM HYDROBROMIDE 10 MG TABLET PO SCH (10:41)
[2020-11-08] MEDS: APIXABAN 2.5 MG TABLET PO SCH ×2 (10:43→21:21)
[2020-11-09] MEDS: hydrALAZINE HCL 25 MG TABLET (FP) PO SCH ×3 (06:41→21:01)
[2020-11-09] MEDS: BANATROL PLUS POWDER PACKET PO SCH ×3 (06:41→21:00)
[2020-11-09] MEDS: AMINO ACIDS/PROTEIN HYDROLYS 30 ML LIQUID.PKT PO SCH ×2 (11:01→18:46)
[2020-11-09] MEDS: CITALOPRAM HYDROBROMIDE 10 MG TABLET PO SCH (11:01)
[2020-11-09] MEDS: APIXABAN 2.5 MG TABLET PO SCH ×2 (11:02→21:01)
[2020-11-09] MEDS: MULTIVITAMINS THER W-MINERALS COMBO TABLET (FP) PO SCH (11:02)
[2020-11-09] MEDS: LOSARTAN POTASSIUM 50 MG TABLET PO SCH (11:02)
[2020-11-09] MEDS: QUEtiapine FUMARATE 25 MG TABLET PO SCH ×2 (11:03→18:38)
[2020-11-10] MEDS: BANATROL PLUS POWDER PACKET PO SCH ×3 (05:01→21:24)
[2020-11-10] MEDS: hydrALAZINE HCL 25 MG TABLET (FP) PO SCH ×3 (05:01→21:24)
[2020-11-10] MEDS: AMINO ACIDS/PROTEIN HYDROLYS 30 ML LIQUID.PKT PO SCH ×2 (11:35→17:58)
[2020-11-10] MEDS: APIXABAN 2.5 MG TABLET PO SCH ×2 (11:36→21:24)
[2020-11-10] MEDS: MULTIVITAMINS THER W-MINERALS COMBO TABLET (FP) PO SCH (11:36)
[2020-11-10] MEDS: QUEtiapine FUMARATE 25 MG TABLET PO SCH ×2 (11:37→17:58)
[2020-11-10] MEDS: CITALOPRAM HYDROBROMIDE 10 MG TABLET PO SCH (11:37)
[2020-11-10] MEDS: LOSARTAN POTASSIUM 50 MG TABLET PO SCH (11:38)
[2020-11-11] MEDS: hydrALAZINE HCL 25 MG TABLET (FP) PO SCH ×3 (05:10→21:05)
[2020-11-11] MEDS: BANATROL PLUS POWDER PACKET PO SCH ×3 (05:10→21:04)
[2020-11-11] MEDS: CITALOPRAM HYDROBROMIDE 10 MG TABLET PO SCH (09:00)
[2020-11-11] MEDS: AMINO ACIDS/PROTEIN HYDROLYS 30 ML LIQUID.PKT PO SCH ×2 (09:00→17:36)
[2020-11-11] MEDS: MULTIVITAMINS THER W-MINERALS COMBO TABLET (FP) PO SCH (09:00)
[2020-11-11] MEDS: QUEtiapine FUMARATE 25 MG TABLET PO SCH ×2 (09:00→17:36)
[2020-11-11] MEDS: LOSARTAN POTASSIUM 50 MG TABLET PO SCH (09:01)
[2020-11-11] MEDS: APIXABAN 2.5 MG TABLET PO SCH ×2 (09:01→21:05)
[2020-11-11 09:42] LABS: POTASSIUM 4.2 mmol/L (3.5-5.1)
[2020-11-11 10:09] LABS: BLOOD UREA NITROGEN 17.2 mg/dL (7-18); CALCIUM 8.4 mg/dL (8.5-10.1)
[2020-11-11 10:12] LABS: CREATININE 0.8 mg/dL (0.55-1.3)
[2020-11-12] MEDS: hydrALAZINE HCL 25 MG TABLET (FP) PO SCH ×3 (05:45→22:00)
[2020-11-12] MEDS: BANATROL PLUS POWDER PACKET PO SCH ×3 (05:45→22:01)
[2020-11-12] MEDS: QUEtiapine FUMARATE 25 MG TABLET PO SCH ×2 (09:26→18:13)
[2020-11-12] MEDS: AMINO ACIDS/PROTEIN HYDROLYS 30 ML LIQUID.PKT PO SCH ×2 (09:26→18:13)
[2020-11-12] MEDS: CITALOPRAM HYDROBROMIDE 10 MG TABLET PO SCH (09:26)
[2020-11-12] MEDS: APIXABAN 2.5 MG TABLET PO SCH ×2 (09:27→22:01)
[2020-11-12] MEDS: MULTIVITAMINS THER W-MINERALS COMBO TABLET (FP) PO SCH (09:27)
[2020-11-12] MEDS: ACETAMINOPHEN 325 MG TABLET (FP) PO PRN (09:27)
[2020-11-12] MEDS: LOSARTAN POTASSIUM 50 MG TABLET PO SCH (09:28)
[2020-11-13] MEDS: BANATROL PLUS POWDER PACKET PO SCH (06:36)
[2020-11-13] MEDS: hydrALAZINE HCL 25 MG TABLET (FP) PO SCH (06:36)
[2020-11-13 06:46] VITALS: BP 150/77; PULSE 77; TEMP 97.7
== END 2020-11-13 08:17 | DRG 177 ==
LOC: JER 13:31 → JERBED 19:24 → J5WEST-2 10-22 22:10 → J6WEST-2 11-03 15:06 → J5WEST-2 11-04 16:20
PROVIDERS: ADMIT Hospitalist
DX: U07.1 COVID-19 (principal); J12.82 Pneumonia due to coronavirus disease 2019; J96.01 Acute respiratory failure with hypoxia; N17.9 Acute kidney failure, unspecified; I50.32 Chronic diastolic (congestive) heart failure; E87.2 Acidosis; N39.0 Urinary tract infection, site not specified; G93.49 Other encephalopathy; E78.5 Hyperlipidemia, unspecified; J44.9 Chronic obstructive pulmonary disease, unspecified; I11.0 Hypertensive heart disease with heart failure; E86.0 Dehydration; F01.50 Vascular dementia, unspecified severity, without behavioral disturbance, psychotic disturbance, mood disturbance, and anxiety; I48.91 Unspecified atrial fibrillation; Z79.01 Long term (current) use of anticoagulants; E87.6 Hypokalemia; E87.5 Hyperkalemia; F32.9 Major depressive disorder, single episode, unspecified; F39 Unspecified mood [affective] disorder; B96.1 Klebsiella pneumoniae [K. pneumoniae] as the cause of diseases classified elsewhere; K52.9 Noninfective gastroenteritis and colitis, unspecified
CPT/HCPCS: 36415; 71045-TC-FY; 76775-TC; 80048; 80053; 81003; 82272; 82438; 82550; 82553; 82710; 82728; 83615; 83735; 84100; 84302; 84999; 85025; 85027; 85379; 85610; 85730; 86140; 87086; 87186; 87324; 87449; 93005; 93010; 97116-GP; 97161-GP; 99285-25; C9803; J0131; U0003

== ENCOUNTER 2020-11-14 17:32 | Inpatient (IN) | payer OTHER ==
[2020-11-14] MEDS ORDERED: hydrALAZINE HCL 25 MG TABLET (FP) PO ONE (20:24)
[2020-11-14] MEDS ORDERED: hydrALAZINE HCL 25 MG TABLET (FP) ONE (20:32)
[2020-11-14 20:35] LABS: BASO % 0.4 % (0-2.0); HEMATOCRIT 35.1 % (32.4-45.2); HEMOGLOBIN 11.5 GM/dL (10.7-15.3); LYMPH % 9.5 % (8-40); MCH 28.3 pg (25.7-33.7); MCHC 32.7 g/dl (32.0-36.0); MEAN CELL VOLUME 86.3 fl (80-96); MEAN PLT VOLUME 8.1 fl (7.5-11.1); MONO % 20.9 % (3.8-10.2); NEUT % 67.2 % (42.8-82.8); PLATELET COUNT 397 K/MM3 (134-434); RBC 4.06 M/mm3 (3.60-5.2); RDW 14.2 % (11.6-15.6); WHITE BLOOD COUNT 14.3 K/mm3 (4.0-10.0)
[2020-11-14 20:43] LABS: INR 1.39 (0.83-1.09); PROTHROMBIN TIME (PATIENT) 16.9 SEC (9.7-13.0)
[2020-11-14 20:59] LABS: POTASSIUM 3.9 mmol/L (3.5-5.1)
[2020-11-14 21:01] LABS: CALCIUM 8.5 mg/dL (8.5-10.1); MAGNESIUM 2.4 mg/dL (1.8-2.4)
[2020-11-14 21:02] LABS: ALBUMIN 2.8 g/dl (3.4-5.0); BLOOD UREA NITROGEN 14.2 mg/dL (7-18)
[2020-11-14 21:06] LABS: BILIRUBIN,TOTAL 0.7 mg/dL (0.2-1); TOT PROT 6.3 g/dl (6.4-8.2)
[2020-11-14 21:32] LABS: ANISOCYTOSIS 1+; MACROCYTOSIS 0; OVALOCYTE 1+; PLATELET ESTIMATE NORMAL
[2020-11-14 22:08] LABS: EPI CELLS 8 /uL (0-25.1); HYALINE CASTS 4 /uL (0-3.1); URINE APPEARANCE CLEAR; URINE BACTERIA 325 /uL (0-1359); URINE BILIRUBIN NEGATIVE (NEGATIVE); URINE COLOR DK YELLOW; URINE GLUCOSE (UA) NEGATIVE (NEGATIVE); URINE KETONE NEGATIVE (NEGATIVE); URINE LEUK ESTERASE 2+ (NEGATIVE); URINE NITRITE NEGATIVE (NEGATIVE); URINE PROTEIN 1+ (NEGATIVE); URINE WBC 233 /uL (0-25.8)
[2020-11-14] MEDS ORDERED: MEROPENEM 1 GM in DEXTROSE 5%-WATER 100 ML IVPB SCH ×2 (23:45→23:57)
[2020-11-14 23:57] LABS: URINE RBC 25.4 /uL (0-23.9)
[2020-11-15] MEDS ORDERED: MEROPENEM 1 GM VIAL (RESTRICTED TO ID) IVPB ONE (00:12)
[2020-11-15] MEDS ORDERED: MEROPENEM 1 GM in DEXTROSE 5%-WATER 100 ML IVPB SCH (01:30)
[2020-11-15 06:57] LABS: BASO % 0.6 % (0-2.0); EOS % 3.2 % (0-4.5); LYMPH % 8.5 % (8-40); MCH 28.7 pg (25.7-33.7); MCHC 33.4 g/dl (32.0-36.0); MEAN CELL VOLUME 85.8 fl (80-96); MONO % 21.8 % (3.8-10.2); NEUT % 65.9 % (42.8-82.8); PLATELET COUNT 385 K/MM3 (134-434); RBC 3.85 M/mm3 (3.60-5.2); RDW 14.1 % (11.6-15.6); WHITE BLOOD COUNT 14.4 K/mm3 (4.0-10.0)
[2020-11-15 07:33] LABS: ALBUMIN 2.6 g/dl (3.4-5.0)
[2020-11-15 07:34] LABS: BILIRUBIN,TOTAL 0.7 mg/dL (0.2-1); CALCIUM 8.1 mg/dL (8.5-10.1); MAGNESIUM 2.3 mg/dL (1.8-2.4); TOT PROT 5.7 g/dl (6.4-8.2)
[2020-11-15 07:36] LABS: CREATININE 0.9 mg/dL (0.55-1.3)
[2020-11-15 07:37] LABS: PHOSPHOROUS 3.1 mg/dL (2.5-4.9)
[2020-11-15 09:48] LABS: ANISOCYTOSIS 0; MACROCYTOSIS 0; PLATELET ESTIMATE NORMAL
[2020-11-15] MEDS ORDERED: ASPIRIN 81 MG CHEWABLE TABLETS ONE (10:06)
[2020-11-15] MEDS ORDERED: LOSARTAN POTASSIUM 50 MG TABLET ONE (10:07)
[2020-11-15] MEDS ORDERED: hydrALAZINE HCL 25 MG TABLET (FP) ONE (10:07)
[2020-11-15] MEDS ORDERED: APIXABAN 2.5 MG TABLET ONE (10:07)
[2020-11-15] MEDS ORDERED: QUEtiapine FUMARATE 25 MG TABLET ONE (10:08)
[2020-11-15] MEDS ORDERED: CITALOPRAM HYDROBROMIDE 10 MG TABLET ONE (10:08)
[2020-11-15] MEDS ORDERED: PIPERACILLIN/TAZOB 3.375 GM 3.375 GM/50 ML BAG IVPB ONE (10:08)
[2020-11-15] MEDS: hydrALAZINE HCL 25 MG TABLET (FP) PO SCH ×2 (10:19→21:43)
[2020-11-15] MEDS: ASPIRIN 81 MG CHEWABLE TABLETS PO SCH (10:20)
[2020-11-15] MEDS: PIPERACILLIN/TAZOB 3.375 GM 3.375 GM in DEXTROSE 5%-WATER - 50 ML IVPB SCH ×2 (10:20→17:53)
[2020-11-15] MEDS: FUROSEMIDE 20 MG TABLET (FP) PO SCH (10:20)
[2020-11-15] MEDS: CITALOPRAM HYDROBROMIDE 10 MG TABLET PO SCH (10:20)
[2020-11-15] MEDS: APIXABAN 2.5 MG TABLET PO SCH ×2 (10:21→21:42)
[2020-11-15] MEDS: LOSARTAN POTASSIUM 50 MG TABLET PO SCH (10:21)
[2020-11-15] MEDS: QUEtiapine FUMARATE 25 MG TABLET PO SCH ×2 (10:21→21:42)
[2020-11-15] MEDS ORDERED: DEXTROSE 5%-WATER - 50 ML IVPB ONE (17:47)
[2020-11-15] MEDS ORDERED: PIPERACILLIN/TAZOBACTAM 3.375 GM VIAL IVPB ONE (17:47)
[2020-11-16] MEDS ORDERED: PIPERACILLIN/TAZOBACTAM 3.375 GM VIAL IVPB ONE ×2 (03:15→09:46)
[2020-11-16] MEDS ORDERED: DEXTROSE 5%-WATER - 50 ML IVPB ONE ×2 (03:15→09:46)
[2020-11-16] MEDS: PIPERACILLIN/TAZOB 3.375 GM 3.375 GM in DEXTROSE 5%-WATER - 50 ML IVPB SCH ×2 (03:16→09:53)
[2020-11-16] MEDS: CITALOPRAM HYDROBROMIDE 10 MG TABLET PO SCH (09:52)
[2020-11-16] MEDS: LOSARTAN POTASSIUM 50 MG TABLET PO SCH (09:52)
[2020-11-16] MEDS: FUROSEMIDE 20 MG TABLET (FP) PO SCH (09:53)
[2020-11-16] MEDS: QUEtiapine FUMARATE 25 MG TABLET PO SCH ×2 (09:53→21:42)
[2020-11-16] MEDS: ASPIRIN 81 MG CHEWABLE TABLETS PO SCH (09:53)
[2020-11-16] MEDS: hydrALAZINE HCL 25 MG TABLET (FP) PO SCH ×2 (09:54→21:42)
[2020-11-16] MEDS: APIXABAN 2.5 MG TABLET PO SCH ×2 (09:54→21:44)
[2020-11-16 10:48] LABS: BASO % 0.6 % (0-2.0); EOS % 8.5 % (0-4.5); HEMATOCRIT 35.4 % (32.4-45.2); HEMOGLOBIN 11.4 GM/dL (10.7-15.3); LYMPH % 9.3 % (8-40); MCH 28.2 pg (25.7-33.7); MCHC 32.2 g/dl (32.0-36.0); MEAN CELL VOLUME 87.6 fl (80-96); MONO % 22.2 % (3.8-10.2); NEUT % 59.4 % (42.8-82.8); PLATELET COUNT 349 K/MM3 (134-434); RBC 4.04 M/mm3 (3.60-5.2); RDW 14.4 % (11.6-15.6); WHITE BLOOD COUNT 13.9 K/mm3 (4.0-10.0)
[2020-11-16 11:19] LABS: POTASSIUM 4.5 mmol/L (3.5-5.1)
[2020-11-16 11:21] LABS: ALBUMIN 2.4 g/dl (3.4-5.0); BLOOD UREA NITROGEN 10.2 mg/dL (7-18); CALCIUM 8.3 mg/dL (8.5-10.1)
[2020-11-16 11:25] LABS: CREATININE 1.1 mg/dL (0.55-1.3)
[2020-11-16 11:26] LABS: BILIRUBIN,TOTAL 0.6 mg/dL (0.2-1); TOT PROT 5.5 g/dl (6.4-8.2)
[2020-11-16 13:22] LABS: ANISOCYTOSIS 1+; MACROCYTOSIS 0; OVALOCYTE 1+; PLATELET ESTIMATE NORMAL
[2020-11-17] MEDS: APIXABAN 2.5 MG TABLET PO SCH ×2 (09:55→22:14)
[2020-11-17] MEDS: hydrALAZINE HCL 25 MG TABLET (FP) PO SCH ×2 (09:55→22:15)
[2020-11-17] MEDS: ASPIRIN 81 MG CHEWABLE TABLETS PO SCH (09:55)
[2020-11-17] MEDS: FUROSEMIDE 20 MG TABLET (FP) PO SCH (09:55)
[2020-11-17] MEDS: QUEtiapine FUMARATE 25 MG TABLET PO SCH ×2 (09:55→22:15)
[2020-11-17] MEDS: CITALOPRAM HYDROBROMIDE 10 MG TABLET PO SCH (09:55)
[2020-11-17] MEDS: LOSARTAN POTASSIUM 50 MG TABLET PO SCH (09:56)
[2020-11-17] MEDS: AMINO ACIDS/PROTEIN HYDROLYS 30 ML LIQUID.PKT PO SCH (18:16)
[2020-11-17] MEDS ORDERED: PT OWN MED DRAWER 7, Y5N ONE (20:38)
[2020-11-18] MEDS: AMINO ACIDS/PROTEIN HYDROLYS 30 ML LIQUID.PKT PO SCH ×2 (11:40→18:13)
[2020-11-18] MEDS: MULTIVITAMINS THER W-MINERALS COMBO TABLET (FP) PO SCH (11:41)
[2020-11-18] MEDS: CITALOPRAM HYDROBROMIDE 10 MG TABLET PO SCH (11:41)
[2020-11-18] MEDS: LOSARTAN POTASSIUM 50 MG TABLET PO SCH (11:42)
[2020-11-18] MEDS: APIXABAN 2.5 MG TABLET PO SCH ×2 (11:42→21:20)
[2020-11-18] MEDS: FUROSEMIDE 20 MG TABLET (FP) PO SCH (11:42)
[2020-11-18] MEDS: QUEtiapine FUMARATE 25 MG TABLET PO SCH ×2 (11:42→21:20)
[2020-11-18] MEDS: hydrALAZINE HCL 25 MG TABLET (FP) PO SCH ×2 (11:42→21:20)
[2020-11-18] MEDS: ASPIRIN 81 MG CHEWABLE TABLETS PO SCH (11:44)
[2020-11-18 19:51] LABS: BASO % 0.3 % (0-2.0); EOS % 5.4 % (0-4.5); HEMATOCRIT 32.8 % (32.4-45.2); LYMPH % 12.4 % (8-40); MCHC 33.5 g/dl (32.0-36.0); MEAN CELL VOLUME 86.4 fl (80-96); MEAN PLT VOLUME 8.2 fl (7.5-11.1); MONO % 20.2 % (3.8-10.2); NEUT % 61.7 % (42.8-82.8); PLATELET COUNT 353 K/MM3 (134-434); RBC 3.79 M/mm3 (3.60-5.2); RDW 14.2 % (11.6-15.6); WHITE BLOOD COUNT 11.6 K/mm3 (4.0-10.0)
[2020-11-19] MEDS: AMINO ACIDS/PROTEIN HYDROLYS 30 ML LIQUID.PKT PO SCH ×2 (07:59→18:27)
[2020-11-19] MEDS: FUROSEMIDE 20 MG TABLET (FP) PO SCH (10:55)
[2020-11-19] MEDS: MULTIVITAMINS THER W-MINERALS COMBO TABLET (FP) PO SCH (10:55)
[2020-11-19] MEDS: APIXABAN 2.5 MG TABLET PO SCH ×2 (10:56→21:42)
[2020-11-19] MEDS: CITALOPRAM HYDROBROMIDE 10 MG TABLET PO SCH (10:56)
[2020-11-19] MEDS: ASPIRIN 81 MG CHEWABLE TABLETS PO SCH (10:56)
[2020-11-19] MEDS: QUEtiapine FUMARATE 25 MG TABLET PO SCH ×2 (10:56→21:43)
[2020-11-19] MEDS: hydrALAZINE HCL 25 MG TABLET (FP) PO SCH ×2 (10:56→21:43)
[2020-11-19] MEDS: LOSARTAN POTASSIUM 50 MG TABLET PO SCH (10:57)
[2020-11-20 08:11] LABS: BASO % 0.6 % (0-2.0); EOS % 5.5 % (0-4.5); HEMATOCRIT 36.6 % (32.4-45.2); HEMOGLOBIN 12.2 GM/dL (10.7-15.3); LYMPH % 10.4 % (8-40); MCH 28.9 pg (25.7-33.7); MCHC 33.3 g/dl (32.0-36.0); MEAN CELL VOLUME 86.7 fl (80-96); MEAN PLT VOLUME 8.1 fl (7.5-11.1); MONO % 17.8 % (3.8-10.2); NEUT % 65.7 % (42.8-82.8); PLATELET COUNT 322 K/MM3 (134-434); RBC 4.21 M/mm3 (3.60-5.2); RDW 14.5 % (11.6-15.6); WHITE BLOOD COUNT 13.9 K/mm3 (4.0-10.0)
[2020-11-20 08:19] LABS: POTASSIUM 4.3 mmol/L (3.5-5.1)
[2020-11-20 08:28] LABS: ALBUMIN 2.6 g/dl (3.4-5.0); CALCIUM 8.6 mg/dL (8.5-10.1)
[2020-11-20 08:29] LABS: BLOOD UREA NITROGEN 23.5 mg/dL (7-18); MAGNESIUM 2.3 mg/dL (1.8-2.4)
[2020-11-20 08:31] LABS: CREATININE 0.9 mg/dL (0.55-1.3); PHOSPHOROUS 3.3 mg/dL (2.5-4.9)
[2020-11-20 08:33] LABS: TOT PROT 5.9 g/dl (6.4-8.2)
[2020-11-20 08:36] LABS: BILIRUBIN,TOTAL 1.1 mg/dL (0.2-1)
[2020-11-20] MEDS: ASPIRIN 81 MG CHEWABLE TABLETS PO SCH (09:15)
[2020-11-20] MEDS: MULTIVITAMINS THER W-MINERALS COMBO TABLET (FP) PO SCH (09:15)
[2020-11-20] MEDS: APIXABAN 2.5 MG TABLET PO SCH ×2 (09:16→21:41)
[2020-11-20] MEDS: CITALOPRAM HYDROBROMIDE 10 MG TABLET PO SCH (09:16)
[2020-11-20] MEDS: QUEtiapine FUMARATE 25 MG TABLET PO SCH ×2 (09:16→21:40)
[2020-11-20] MEDS: FUROSEMIDE 20 MG TABLET (FP) PO SCH (09:16)
[2020-11-20] MEDS: LOSARTAN POTASSIUM 50 MG TABLET PO SCH (09:16)
[2020-11-20] MEDS: hydrALAZINE HCL 25 MG TABLET (FP) PO SCH ×2 (09:16→21:40)
[2020-11-20] MEDS: AMINO ACIDS/PROTEIN HYDROLYS 30 ML LIQUID.PKT PO SCH ×2 (09:17→17:55)
[2020-11-21] MEDS: AMINO ACIDS/PROTEIN HYDROLYS 30 ML LIQUID.PKT PO SCH ×2 (08:33→17:32)
[2020-11-21] MEDS ORDERED: PT OWN MED DRAWER 7, Y5N ONE (09:48)
[2020-11-21] MEDS: hydrALAZINE HCL 25 MG TABLET (FP) PO SCH ×2 (10:00→21:29)
[2020-11-21] MEDS: CITALOPRAM HYDROBROMIDE 10 MG TABLET PO SCH (10:01)
[2020-11-21] MEDS: LOSARTAN POTASSIUM 50 MG TABLET PO SCH (10:01)
[2020-11-21] MEDS: ASPIRIN 81 MG CHEWABLE TABLETS PO SCH (10:01)
[2020-11-21] MEDS: APIXABAN 2.5 MG TABLET PO SCH ×2 (10:02→21:29)
[2020-11-21] MEDS: QUEtiapine FUMARATE 25 MG TABLET PO SCH ×2 (10:02→21:29)
[2020-11-21] MEDS: FUROSEMIDE 20 MG TABLET (FP) PO SCH (10:02)
[2020-11-21] MEDS: MULTIVITAMINS THER W-MINERALS COMBO TABLET (FP) PO SCH (10:03)
[2020-11-21 12:33] LABS: BASO % 0.9 % (0-2.0); EOS % 4.3 % (0-4.5); HEMATOCRIT 35.7 % (32.4-45.2); HEMOGLOBIN 11.9 GM/dL (10.7-15.3); LYMPH % 9.5 % (8-40); MCH 28.8 pg (25.7-33.7); MCHC 33.4 g/dl (32.0-36.0); MEAN CELL VOLUME 86.4 fl (80-96); MEAN PLT VOLUME 8.4 fl (7.5-11.1); MONO % 19.4 % (3.8-10.2); NEUT % 65.9 % (42.8-82.8); PLATELET COUNT 321 K/MM3 (134-434); RBC 4.13 M/mm3 (3.60-5.2); RDW 14.8 % (11.6-15.6); WHITE BLOOD COUNT 13.7 K/mm3 (4.0-10.0)
[2020-11-21 12:57] LABS: POTASSIUM 4.4 mmol/L (3.5-5.1)
[2020-11-21 13:03] LABS: CALCIUM 8.6 mg/dL (8.5-10.1)
[2020-11-21 13:04] LABS: ALBUMIN 2.6 g/dl (3.4-5.0); BLOOD UREA NITROGEN 29.9 mg/dL (7-18); MAGNESIUM 2.3 mg/dL (1.8-2.4)
[2020-11-21 13:07] LABS: CREATININE 1.1 mg/dL (0.55-1.3); PHOSPHOROUS 3.9 mg/dL (2.5-4.9)
[2020-11-21 13:08] LABS: TOT PROT 5.5 g/dl (6.4-8.2)
[2020-11-21 13:11] LABS: BILIRUBIN,TOTAL 0.5 mg/dL (0.2-1)
[2020-11-22 07:00] VITALS: BP 155/77; PULSE 85; TEMP 98.8
[2020-11-22 08:48] LABS: BASO % 0.8 % (0-2.0); EOS % 4.7 % (0-4.5); HEMATOCRIT 36.6 % (32.4-45.2); HEMOGLOBIN 12.1 GM/dL (10.7-15.3); LYMPH % 11.6 % (8-40); MCH 28.8 pg (25.7-33.7); MCHC 33.2 g/dl (32.0-36.0); MEAN CELL VOLUME 86.8 fl (80-96); MEAN PLT VOLUME 8.4 fl (7.5-11.1); MONO % 20.3 % (3.8-10.2); NEUT % 62.6 % (42.8-82.8); PLATELET COUNT 292 K/MM3 (134-434); RBC 4.21 M/mm3 (3.60-5.2); RDW 14.6 % (11.6-15.6); WHITE BLOOD COUNT 12.9 K/mm3 (4.0-10.0)
[2020-11-22 09:01] LABS: POTASSIUM 4.5 mmol/L (3.5-5.1)
[2020-11-22] MEDS: AMINO ACIDS/PROTEIN HYDROLYS 30 ML LIQUID.PKT PO SCH (09:09)
[2020-11-22 09:12] LABS: ALBUMIN 2.5 g/dl (3.4-5.0); BLOOD UREA NITROGEN 32.9 mg/dL (7-18)
[2020-11-22 09:13] LABS: BILIRUBIN,TOTAL 0.5 mg/dL (0.2-1); CALCIUM 8.4 mg/dL (8.5-10.1); TOT PROT 5.5 g/dl (6.4-8.2)
[2020-11-22 09:14] LABS: MAGNESIUM 2.4 mg/dL (1.8-2.4)
[2020-11-22 09:15] LABS: PHOSPHOROUS 3.6 mg/dL (2.5-4.9)
[2020-11-22 09:18] LABS: CREATININE 0.9 mg/dL (0.55-1.3)
[2020-11-22] MEDS ORDERED: PT OWN MED DRAWER 7, Y5N ONE (09:54)
[2020-11-22] MEDS: APIXABAN 2.5 MG TABLET PO SCH (10:26)
[2020-11-22] MEDS: QUEtiapine FUMARATE 25 MG TABLET PO SCH (10:26)
[2020-11-22] MEDS: FUROSEMIDE 20 MG TABLET (FP) PO SCH (10:26)
[2020-11-22] MEDS: LOSARTAN POTASSIUM 50 MG TABLET PO SCH (10:26)
[2020-11-22] MEDS: hydrALAZINE HCL 25 MG TABLET (FP) PO SCH (10:26)
[2020-11-22] MEDS: CITALOPRAM HYDROBROMIDE 10 MG TABLET PO SCH (10:26)
[2020-11-22] MEDS: MULTIVITAMINS THER W-MINERALS COMBO TABLET (FP) PO SCH (10:26)
[2020-11-22] MEDS: ASPIRIN 81 MG CHEWABLE TABLETS PO SCH (10:27)
[2020-11-22 10:50] LABS: ANISOCYTOSIS 0; HELMET CELLS 0; HOWELL-JOLLY BODIES 0; MACROCYTOSIS 0; OVALOCYTE 0; PLATELET ESTIMATE NORMAL; ROULEAU 0; SICKELED CELLS 0; TARGET CELLS 0; TEAR DROP CELLS 0; TOXIC GRANULATION 0
== END 2020-11-22 14:00 | DRG 689 ==
LOC: JER 17:32 → JERBED 22:35 → J8W 11-15 14:42
PROVIDERS: ATTEND Student in an Organized Health Care Education/Training Program
DX: N39.0 Urinary tract infection, site not specified (principal); U07.1 COVID-19; E46 Unspecified protein-calorie malnutrition; Z68.1 Body mass index [BMI] 19.9 or less, adult; I50.32 Chronic diastolic (congestive) heart failure; I10 Essential (primary) hypertension; E78.5 Hyperlipidemia, unspecified; F03.90 Unspecified dementia, unspecified severity, without behavioral disturbance, psychotic disturbance, mood disturbance, and anxiety; I48.91 Unspecified atrial fibrillation; E86.0 Dehydration; J44.9 Chronic obstructive pulmonary disease, unspecified; I11.0 Hypertensive heart disease with heart failure; D72.829 Elevated white blood cell count, unspecified; F39 Unspecified mood [affective] disorder; F32.9 Major depressive disorder, single episode, unspecified; D72.823 Leukemoid reaction; B95.2 Enterococcus as the cause of diseases classified elsewhere; W17.89XA Other fall from one level to another, initial encounter; Y92.098 Other place in other non-institutional residence as the place of occurrence of the external cause; Z86.73 Personal history of transient ischemic attack (TIA), and cerebral infarction without residual deficits; Z86.718 Personal history of other venous thrombosis and embolism
CPT/HCPCS: 36415; 70450-TC; 71045-TC-FY; 72125-TC; 72170-TC-FY; 80053; 80061; 81003; 82550; 83721; 83735; 84100; 84443; 84484; 85025; 85610; 85730; 86769; 87040; 87086; 87186; 93005; 93010; 93880-TC; 97116-GP; 97162-GP; 99285-25; C9803; U0003